=== PATIENT | female | born 1965 | race Caucasian/White ===

== ENCOUNTER → 2018-01-25 08:45 | Outpatient (CLI) | payer MEDICARE, MEDICAID, SELFPAY | PROVIDERS: PCP Nurse Practitioner Family; Visit Provider Nurse Practitioner Adult Health | DX: G43.009 Migraine without aura, not intractable, without status migrainosus (principal); I67.1 Cerebral aneurysm, nonruptured; F17.210 Nicotine dependence, cigarettes, uncomplicated | CPT/HCPCS: 99213 ==

== ENCOUNTER 2018-03-20 00:19 | Outpatient (CLI) | payer MEDICARE, MEDICAID, SELFPAY ==
--- NOTE | 2018-03-20 11:33 | DI.MAMMO_ITS ---
SYMPTOMS/DIAGNOSIS: SCREENING, Z12.31, PREVENTATIVE CARE, Z00.00 MAMMOGRAM: Mammograms were interpreted according to the usual protocol including computer analysis with CAD system, tomosynthesis and C view imaging. Comparison with prior examinations. There are scattered well circumscribed nodules in both breasts. No suspicious masses or microcalcifications are seen. Breast density B. The skin and axilla are unremarkable. IMPRESSION: No evidence for malignancy. Yearly mammography is recommended. Category 2. MQSA ASSESSMENT OF FINDINGS: Negative with benign findings. Category 2. Patient will receive a letter notifying them of these results. BI-RADS category B. There are scattered areas of fibroglandular density.
== END 2018-03-20 00:39 ==
PROVIDERS: PCP Nurse Practitioner Family; Visit Provider Nurse Practitioner Family
DX: Z12.31 Encounter for screening mammogram for malignant neoplasm of breast (principal)
CPT/HCPCS: 77063; 77067

== ENCOUNTER 2018-05-09 08:00 | Outpatient (CLI) | payer MEDICARE, MEDICAID, SELFPAY ==
--- NOTE | 2018-05-09 06:00 | DI.RAD_ITS ---
SYMPTOM/DIAGNOSIS: LUMBAR SPONDYLOSIS PAIN CLINIC: Fluoroscopy Time: 116.6 sec Fluoroscopy was utilized by Dr. Gregory during the performance of a lumbar radiofrequency ablation. Please refer to the procedure report for complete details.
[2018-05-09 08:09] VITALS: BP 115/82; PULSE 71; RESP 18; TEMP 36.7; O2SAT 98
[2018-05-09] MEDS: Midazolam 2 MG/2 ML VIAL IVP (08:38)
[2018-05-09] MEDS: fentaNYL 100 MCG/2 ML VIAL IVP (08:38)
[2018-05-09] MEDS: Lactated Ringers 1,000 ML 80 ML IV (08:39)
[2018-05-09 09:16] VITALS: BP 123/67; PULSE 70; RESP 19; O2SAT 93
[2018-05-09] MEDS: Lidocaine 1% Pres-Free 5 ML VIAL IJ (09:19)
--- NOTE | 2018-05-09 09:25 | PDOC.PAIN ---
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 LEXUS has had long standing back pain thought to be facet joint generated and which has been refractory to other therapies. Local anesthetic medial branch blocks or intra-articular facet joint injections resulted in LEXUS reporting reduction of the usual axial component of pain for at least the duration of the local anesthetic effect. COMMENTS: Patient had previous radiofrequency ablation twice with good results for approximately 7 months Patient was interviewed and the medical record reviewed. There were no medical, pharmacologic, radiographic or other structural contraindications to attempting fluoroscopically guided radiofrequency treatment. Risks and expected side effects as well as potential benefit of the procedure were reviewed and voiced concerns addressed. The printed consent form was signed and witnessed. Standard time-out procedure was performed. Patient was placed in the prone position on the fluoroscopy table and automated blood pressure cuff and pulse oximeter applied. The skin entry points for approaching the anatomic target points of the segmental medial branches of { /bilateral: L3, 4, 5} were identified with fluoroscopy and marked. Following thorough Chlorhexadine preparation of the skin and draping and 1% lidocaine infiltration of the skin entry points and subcutaneous tissues, a single 17 guage straight 15 cm 4 mm active tip radiofrequency cannula was placed under fluoroscopic guidance along or across the anatomic course of each respective segmental medial branch. Each placement was stimulated at 50Hz and les then 0.5V for medial branch sensory localization and the at 2Hz and up to 3 times the sensory voltage without any evidence of distal myotomal stimulation. 1cc of 1% ;idocaine was injected at each site. At each placement a continuous mode radiofrequency treatment was done at 60 degrees C for 150secs. This radiofrequency treatment should result in the denervation of the { /bilateral L4-5, L5-S1 FACET JOINTS}.~ A total of {4} facets were expected to be denervated from today's treatment. Vital signs were stable throughout the procedure and were as recorded in the docflowsheet by the nursing staff. If given, dosages of intravenous drugs for anxiolysis and analgesia were documented in the Medication Administration Record (MAR). Follow up plans and appointments were discussed. Post procedure instruction was given as documented in the nursing documentation and having met discharge criteria, LEXUS was discharged from the [facility]. COMMENTS: Versed 1 mg and fentanyl 50 mcg given. Patient will follow-up as needed. CC: Lynne Ramírez
--- NOTE | 2018-05-09 09:28 | PDOC.PAIN_ITS ---
Pain Clinic Procedure Note Current Active Problems Problem Status Onset Spondylosis of lumbar region without myelopathy or radiculopathy Chronic COOLED LUMBAR/SACRAL MEDIAL BRANCH RADIOFREQUENCY LEXUS COOPRE has been referred to the [facility] for radiofrequency treatment of chronic axial back pain. LEXUS has had long standing back pain thought to be facet joint generated and which has been refractory to other therapies. Local anesthetic medial branch blocks or intra- articular facet joint injections resulted in LEXUS reporting reduction of the usual axial component of pain for at least the duration of the local anesthetic effect. COMMENTS: Patient had previous radiofrequency ablation twice with good results for approximately 7 months Patient was interviewed and the medical record reviewed. There were no medical , pharmacologic, radiographic or other structural contraindications to attempting fluoroscopically guided radiofrequency treatment. Risks and expected side effects as well as potential benefit of the procedure were reviewed and voiced concerns addressed. The printed consent form was signed and witnessed. Standard time-out procedure was performed. Patient was placed in the prone position on the fluoroscopy table and automated blood pressure cuff and pulse oximeter applied. The skin entry points for approaching the anatomic target points of the segmental medial branches of { /bilateral: L3, 4, 5} were identified with fluoroscopy and marked. Following thorough Chlorhexadine preparation of the skin and draping and 1% lidocaine infiltration of the skin entry points and subcutaneous tissues, a single 17 guage straight 15 cm 4 mm active tip radiofrequency cannula was placed under fluoroscopic guidance along or across the anatomic course of each respective segmental medial branch. Each placement was stimulated at 50Hz and les then 0.5V for medial branch sensory localization and the at 2Hz and up to 3 times the sensory voltage without any evidence of distal myotomal stimulation. 1cc of 1% ;idocaine was injected at each site. At each placement a continuous mode radiofrequency treatment was done at 60 degrees C for 150secs. This radiofrequency treatment should result in the denervation of the { / bilateral L4-5, L5-S1 FACET JOINTS}.~ A total of {4} facets were expected to be denervated from today's treatment. Vital signs were stable throughout the procedure and were as recorded in the docflowsheet by the nursing staff. If given, dosages of intravenous drugs for anxiolysis and analgesia were documented in the Medication Administration Record (MAR). Follow up plans and appointments were discussed. Post procedure instruction was given as documented in the nursing documentation and having met discharge criteria, LEXUS was discharged from the [facility]. COMMENTS: Versed 1 mg and fentanyl 50 mcg given. Patient will follow-up as needed. CC: Lynne Ramírez
== END 2018-05-09 08:20 ==
PROVIDERS: PCP Nurse Practitioner Family; Visit Provider Anesthesiology Pain Medicine
DX: M47.816 Spondylosis without myelopathy or radiculopathy, lumbar region (principal); G89.29 Other chronic pain
CPT/HCPCS: 64636; 64635; 72100; J2250; J3010

== ENCOUNTER → 2018-08-02 09:18 | Outpatient (BNVA) | payer MEDICARE, MEDICAID, SELFPAY | PROVIDERS: PCP Nurse Practitioner Family; Visit Provider Nurse Practitioner Adult Health | DX: G43.009 Migraine without aura, not intractable, without status migrainosus (principal); G44.40 Drug-induced headache, not elsewhere classified, not intractable; I67.1 Cerebral aneurysm, nonruptured | CPT/HCPCS: 99213 ==

== ENCOUNTER → 2018-09-06 09:47 | Outpatient (BNVA) | payer MEDICARE, MEDICAID, SELFPAY | PROVIDERS: PCP Nurse Practitioner Family; Visit Provider Nurse Practitioner Adult Health | DX: G43.009 Migraine without aura, not intractable, without status migrainosus (principal); R93.0 Abnormal findings on diagnostic imaging of skull and head, not elsewhere classified | CPT/HCPCS: 99212; 99213 ==

== ENCOUNTER 2018-12-01 10:08 | Outpatient (REF) | payer MEDICARE, MEDICAID, SELFPAY ==
[2018-12-04 13:54] LABS: Chlamydia Result Negative; GC Result Negative; Specimen Description URINE
== END 2018-12-01 10:28 ==
LOC: NCHCN 10:08
PROVIDERS: PCP Nurse Practitioner Family; Visit Provider Nurse Practitioner Family
DX: E03.9 Hypothyroidism, unspecified (principal); R53.83 Other fatigue
CPT/HCPCS: 87491; 87591

== ENCOUNTER 2018-12-21 08:01 | Outpatient (REF) | payer MEDICARE, MEDICAID, SELFPAY ==
[2018-12-21 13:03] LABS: HCT 42.3 % (36.0-46.0); HGB 14.8 g/dL (12.0-15.5); Mean Corpuscular Hemoglobin 33.6 pg (27.0-33.0); Mean Corpuscular Volume 96.1 fL (80-95); Platelet Count 183 x1000/uL (130-400); RBC Distribution Width 13.6 % (11.7-14.6); White Blood Cell Count 6.64 k/cumm (4.4-10.8)
[2018-12-21 22:05] LABS: ALT 26 U/L (12-78); AST 15 U/L (15-37); Albumin 3.5 g/dL (3.4-5.0); Alkaline Phosphatase 88 U/L (46-116); Anion Gap 10.4 mmol/L (3-11); BUN 12 mg/dL (7-18); Bilirubin, Total 0.2 mg/dL (0.2-1.0); CO2 27.6 mmol/L (21.0-32.0); CREATININE 0.91 mg/dL (0.55-1.02); Calcium 8.9 mg/dL (8.5-10.1); Calculated LDL 107 mg/dL; Chloride 104 mmol/L (98-107); Cholesterol 195 mg/dL (50-200); Glucose 97 mg/dL (70-100); HDL Cholesterol 43 mg/dL (40-60); Potassium 4.2 mmol/L (3.5-5.1); Sodium 142 mmol/L (136-145); TSH (W/Ref FT4) 2.81 uIU/mL (0.358-3.74); Total Protein 6.7 g/dL (6.4-8.2); Triglyceride 226 mg/dL (30-150); Vitamin B12 404 pg/mL (193-986)
[2018-12-21 22:08] LABS: Vitamin D 25 Total 38.7 ng/ml (30-100)
[2018-12-22 10:21] LABS: HIV-1/2 Ag & Ab Screen Negative (NEGAT)
[2018-12-22 16:36] LABS: Thyroglobulin Antibody <1.8 IU/mL (<4.0); Thyroglobulin Tumor Marker <0.1 ng/mL
== END 2018-12-21 08:21 ==
LOC: NCHCN 08:01
PROVIDERS: PCP Nurse Practitioner Family; Visit Provider Nurse Practitioner Family
DX: E03.9 Hypothyroidism, unspecified (principal); R53.83 Other fatigue; M79.10 Myalgia, unspecified site; R39.15 Urgency of urination; F32.9 Major depressive disorder, single episode, unspecified; F41.1 Generalized anxiety disorder
CPT/HCPCS: 80053; 80061; 82306; 83721; 85027; 87389; 82607; 84432; 84443; 86800

== ENCOUNTER 2019-01-25 00:29 | Outpatient (CLI) | payer MEDICARE, MEDICAID, SELFPAY ==
--- NOTE | 2019-01-25 09:35 | DI.US_ITS ---
SYMPTOM/DIAGNOSIS: R300, STRANGURIA RENAL ULTRASOUND: The right kidney measures 11.4 x 4.4 x 5.3 cm. There is normal cortical thickness and no cyst or mass is identified. The left kidney measures 11.7 x 7.2 x 5.5 cm There is normal cortical thickness. The pre-void bladder contains 446 cc The ureteral jets are not identified. The post void bladder contains 5 cc. SUMMARY: Normal examination.
== END 2019-01-25 00:49 ==
PROVIDERS: PCP Nurse Practitioner Family; Visit Provider Urology
DX: R30.0 Dysuria (principal)
CPT/HCPCS: 76770

== ENCOUNTER 2019-02-15 09:12 | Outpatient (CLI) | payer MEDICARE, MEDICAID, SELFPAY ==
--- NOTE | 2019-02-15 06:00 | DI.RAD_ITS ---
SYMPTOM/DIAGNOSIS: LUMBAR SPONDYLOSIS PAIN CLINIC: Fluoroscopy Time: 112.4 Fluoroscopy was utilized by Dr. Banerjee during the performance of a lumbar radiofrequency ablation. Please refer to the procedure report for complete details.
[2019-02-15 09:22] VITALS: BP 118/76; PULSE 78; RESP 20; TEMP 36.6; O2SAT 96
[2019-02-15] MEDS: Lactated Ringers 1,000 ML 80 ML IV (09:55)
[2019-02-15] MEDS: fentaNYL 100 MCG/2 ML VIAL IVP (09:56)
[2019-02-15] MEDS: Midazolam 2 MG/2 ML VIAL IVP (09:56)
[2019-02-15 10:48] VITALS: BP 137/58; PULSE 69; RESP 27; O2SAT 94
[2019-02-15] MEDS: Bupivacaine 0.5% Pres-Free 10 ML VIAL IJ (11:01)
[2019-02-15] MEDS: methylPREDNISolone ACETATE 40 MG/ML VIAL IM (11:02)
[2019-02-15] MEDS: Lidocaine 1% Pres-Free 5 ML VIAL 20 ML IJ (11:05)
--- NOTE | 2019-02-15 12:26 | PDOC.PAIN_ITS ---
Pain Clinic Procedure Note Current Active Problems Problem Status Onset Spondylosis of lumbar region without myelopathy or radiculopathy 09/07/16 LUMBAR/SACRAL MEDIAL BRANCH RADIOFREQUENCY LEXUS COOPER has been referred to the [facility] for radiofrequency treatment of chronic axial back pain. LEXUS has had long standing back pain thought to be facet joint generated and which has been refractory to other therapies. Local anesthetic medial branch blocks or intra- articular facet joint injections resulted in LEXUS reporting reduction of the usual axial component of pain for at least the duration of the local anesthetic effect. COMMENTS: She had >6 months of relief with her last RFA. I did decided to add the bilateral S1 lateral branches to get better denervation of the L5-S1 facet joints without any added cost. Patient was interviewed and the medical record reviewed. There were no medical, pharmacologic, radiographic or other structural contraindications to attempting fluoroscopically guided radiofrequency treatment. Risks and expected side effects as well as potential benefit of the procedure were reviewed and voiced concerns addressed. The printed consent form was signed and witnessed. Standard time-out procedure was performed. Patient was placed in the prone position on the fluoroscopy table and automated blood pressure cuff and pulse oximeter applied. The skin entry points for approaching the anatomic target points of the segmental medial branches of bilateral L3-L5DR and the bilateral S1 lateral branches were identified with fluoroscopy and marked. Following thorough Chlorhexadine preparation of the skin and draping and 1% lidocaine infiltration of the skin entry points and subcutaneous tissues, a single 18 guage curved 10 cm 10mm active tip radiofrequency cannula was placed under fluoroscopic guidance along or across the anatomic course of each respective segmental medial branch. Each placement was stimulated at 50Hz and les then 0.5V for medial branch sensory localization and the at 2Hz and up to 3 times the sensory voltage without any evidence of distal myotomal stimulation. 1cc of 1% ;idocaine was injected at each site. At each placement a continuous mode radiofrequency treatment was done at 90 degrees C for 90secs and then rotated 180degrees and then repeated. This radiofrequency treatment should result in the denervation of the bilateral L4-L5 and L5-S1 FACET JOINTS. A total of 4 facets were expected to be denervated from today's treatment. Vital signs were stable throughout the procedure and were as recorded in the docflowsheet by the nursing staff. If given, dosages of intravenous drugs for anxiolysis and analgesia were documented in the Medication Administration Record (MAR). Follow up plans and appointments were discussed. Post procedure instruction was given as documented in the nursing documentation and having met discharge criteria, LEXUS was discharged from the [facility]. COMMENTS: If this procedure gives her at least 6 months of relief, she can repeat this procedure without repeating the LMBBs. CC: Lynne Ramírez
== END 2019-02-15 09:32 ==
PROVIDERS: PCP Nurse Practitioner Family; Visit Provider Preventive Medicine Occupational Medicine
DX: M47.816 Spondylosis without myelopathy or radiculopathy, lumbar region (principal)
CPT/HCPCS: 64636 ×2; 64635 ×2; 72100; J1030; J2250; J3010

== ENCOUNTER 2019-03-07 00:43 | Outpatient (CLI) | payer MEDICARE, MEDICAID, SELFPAY ==
--- NOTE | 2019-03-07 08:00 | DI.US_ITS ---
SYMPTOM/DIAGNOSIS: LIVER LESION, K76.9 ABDOMEN ULTRASOUND: Comparison is made with MRI of the lumbar spine from [facility] dated 01/18/19 which showed a liver lesion inferiorly. This lesion is present on a previous CT from 2007. The liver shows normal echogenicity. The right lobe of the liver is somewhat elongated measuring 19 cm. The patient is status post cholecystectomy. The cyst seen on MRI was not visualized on this exam. The exam is somewhat limited due to patient body habitus. The spleen is normal in size. The kidneys and aorta are unremarkable. IMPRESSION: Lesion seen on MRI was present on a previous CT from 2007 and likely represents a cyst. It was not visualized on the current ultrasound.
== END 2019-03-07 01:03 ==
PROVIDERS: PCP Nurse Practitioner Family; Visit Provider Nurse Practitioner Family
DX: K76.89 Other specified diseases of liver (principal); Z90.49 Acquired absence of other specified parts of digestive tract
CPT/HCPCS: 76700

== ENCOUNTER 2019-03-08 00:58 | Outpatient (CLI) | payer MEDICARE, MEDICAID, SELFPAY ==
--- NOTE | 2019-03-08 10:30 | DI.MAMMO_ITS ---
SYMPTOMS/DIAGNOSIS: SCREENING, Z12.39 MAMMOGRAMS: Mammograms were interpreted according to the usual protocol including computer analysis with CAD system, tomosynthesis and C view imaging. The breasts are of moderate density with fairly symmetrical distribution of fibroglandular tissue. There are multiple areas of nodularity and there are skin nodules noted as well. No suspicious mass or clumped microcalcification seen. No change in appearance in comparison with previous examinations including February 2018. CONCLUSION: No specific evidence of malignancy at this time. Routine screening examinations are suggested at yearly intervals in this age group according to the ACS/ACR guidelines. Category 1, breast density category B. MQSA ASSESSMENT OF FINDINGS: Negative. Category 1. Patient will receive a letter notifying them of these results. BI-RADS category B. There are scattered areas of fibroglandular density.
== END 2019-03-08 01:18 ==
PROVIDERS: PCP Nurse Practitioner Family; Visit Provider Nurse Practitioner Family
DX: Z12.31 Encounter for screening mammogram for malignant neoplasm of breast (principal)
CPT/HCPCS: 77063; 77067

== ENCOUNTER 2019-05-11 18:36 | Emergency (ER) | payer MEDICARE, MEDICAID, SELFPAY ==
[2019-05-11 18:39] VITALS: BP 134/96; PULSE 89; RESP 18; TEMP 36.8; O2SAT 96
--- NOTE | 2019-05-11 19:12 | W.ED.GENAD ---
Discharge Plan Disposition Patient Disposition: HOME Discharge Details Chief Complaint: Abd Prob Clinical Impression: Muscle strain, Acute right flank pain Primary Care Provider: Lynne Ramírez ED Provider: Edgar Gutierrez Home Meds and New Rx's Prescriptions: Continued magnesium oxide 500 mg capsule 500 mg PO DAILY RF: 0 hydroxyzine HCl 25 mg tablet 25 mg PO QID PRN (Reason: headaches) Qty: 30 RF: 1 omeprazole 20 mg capsule,delayed release(DR/EC) 20 mg PO DAILY RF: 0 alprazolam 1 MG tablet 1 mg PO PRN PRNRF: 0 clomipramine 50 MG capsule 200 mg PO DAILY RF: 0 alprazolam 3 MG tablet extended release 24 hr 3 mg PO BID RF: 0 (DME) Ultra-Light Rollator 1 EACH misc Miscellaneous DAILY Qty: 1 RF: 0 Shower chair 1 unit Miscellaneous DAILY Qty: 1 RF: 0 cholecalciferol (vitamin D3) 1,000 UNIT tablet 2,000 unit PO DAILY Qty: 180 RF: 3 vitamin B complex 1 EACH capsule 1 ea PO weekly RF: 0 levothyroxine 200 MCG tablet 200 mcg PO DAILY Qty: 90 RF: 3 CBD oil 13 drp PO DAILY RF: 0 apple cider vinegar 300 mg Tablet 300 mg PO DAILY RF: 0 turmeric 400 mg Capsule 400 mg PO DAILY RF: 0 acetaminophen [Acetaminophen Extra Strength] 500 mg tablet 1,500 mg PO BID RF: 0 Discontinued methylsulfonylmethane [MSM] 1,000 mg tablet 3,000 mg PO BID RF: 0 No Action lidocaine [Lidoderm] 5 % adhesive patch,medicated 1 patch TP DAILY Qty: 15 RF: 0 methocarbamol 750 mg tablet 750 mg PO QID PRN (Reason: muscle spasm) Qty: 14 RF: 0 Discharge Instructions Instructions: Muscle Strain (ED) Additional Instructions: Please take acetaminophen (tylenol) - 650mg every 6 hours by mouth as needed for pain. Use lidocaine patches -these are available [id number]. Please use as directed by label. Please contact your primary care physician to arrange follow-up. Return to the ER for any worsening or new concerning symptoms. Referrals: Lynne Ramírez [Primary Care Provider] - Discharge Data Discharge Date/Time-TO BE ENTERED AT DEPARTURE: 05/11/19 20:30 Medical Decision Making 54-year-old female here with right flank pain for the past few days that started today after after physical therapy exercises. Patient is saturating well with no respiratory distress. Lungs are clear to auscultation and there is no pleuritic component to her pain. Patient has had no direct trauma to her chest. Patient does note cough recently trying to stop smoking. Given small bruise and focal tenderness I suspect that she has sustained a contusion, possibly doing physical therapy or else a pulled muscle. Consider less likely rib fracture. Plan to give Tylenol and lidocaine patch and will reassess. HPI General Mode of arrival: ambulatory. Date/Time Provider Initiated Documentation: 05/11/19 18:46. Limitations to Documentation: no limitations. Information obtained by: patient. HPI Narrative: 54-year-old female with multiple medical problems presents with chief complaint of right flank pain. Patient notes that she had her poor physical therapy on Tuesday. The following day she felt stiff and later that today developed pain in her right flank. Pain has persisted. Pain is moderate. Pain is worse with certain movements including twisting and when lying back. She initially was concerned that she pulled a muscle but is worried that symptoms persist. She has no chest pain or pleuritic component to her pain. She has no dysuria or hematuria. No rash. No abdominal pain no nausea vomiting. Related Data Home Medications Medication Instructions Recorded Confirmed alprazolam 1 mg PO PRN PRN 10/18/12 05/13/19 alprazolam 3 mg PO BID 10/18/12 05/13/19 clomipramine 200 mg PO DAILY tab-cap 10/18/12 05/13/19 Ultra-Light Rollator #1 06/03/17 05/13/19 cholecalciferol (vitamin D3) 2,000 unit PO DAILY #180 tab-cap 11/02/17 05/13/19 vitamin B complex 1 ea PO weekly cap 11/09/17 05/13/19 levothyroxine 200 mcg PO DAILY #90 tab 11/14/17 05/13/19 Cbd Oil 13 drp PO DAILY 11/18/17 05/13/19 acetaminophen 500 mg tablet 1,500 mg PO BID tab 08/02/18 05/13/19 hydroxyzine HCl 25 mg tablet 25 mg PO QID PRN #30 tab 08/02/18 05/13/19 magnesium oxide 500 mg capsule 500 mg PO DAILY cap 08/02/18 05/13/19 omeprazole 20 mg capsule,delayed 20 mg PO DAILY 01/02/19 05/13/19 release apple cider vinegar 300 mg PO DAILY 05/11/19 05/13/19 turmeric 400 mg PO DAILY 05/11/19 05/13/19 lidocaine [Lidoderm] 1 patch TP DAILY #15 each 05/13/19 methocarbamol 750 mg PO QID PRN #14 tab 05/13/19 Previous Rx's Medication Instructions Recorded cholecalciferol (vitamin D3) 2,000 unit PO DAILY #180 tab-cap 11/02/17 levothyroxine 200 mcg PO DAILY #90 tab 11/14/17 hydroxyzine HCl 25 mg tablet 25 mg PO QID PRN #30 tab 08/02/18 lidocaine [Lidoderm] 1 patch TP DAILY #15 each 05/13/19 methocarbamol 750 mg PO QID PRN #14 tab 05/13/19 Allergies Allergy/AdvReac Type Severity Reaction Status Date / Time NSAIDS (Non-Steroidal AdvReac Severe Other (See Unverified 05/13/19 11:10 Anti-Inflamma Comment) gabapentin AdvReac Mild Sleepiness Unverified 05/13/19 11:10 General Stated Complaint: Abd Prob DANA: 3 Review of Systems All systems reviewed & are unremarkable except as noted in HPI and below Constitutional Constitutional: Denies fever(s) Musculoskeletal Musculoskeletal: Reports as per HPI [facility] Medical History Depressive disorder Follicular thyroid cancer (~1991) Generalized anxiety disorder Hypothyroidism Morbid obesity Myopathy MONSE (obstructive sleep apnea) Panic disorder Surgical History Abdominal hysterectomy (~1991) Ovaries remain Cholecystectomy (01/10/04) Hernia repair, ventral, 2013, [place] Thyroid (06/26/92) Complete thyroidectomy for follicular thyroid CA Family History Father , COPD at age 72. Substance abuse Alcoholic Diabetes COPD (chronic obstructive pulmonary disease) Smoker Mother Heart disease Myocardial infarction x2 Sister No problems noted. Sister No problems noted. Sister No problems noted. Sister No problems noted. Brother No problems noted. Social History (Reviewed 05/13/19 @ 12:15 by MISSY Wren Smoking/Tobacco Use Status: Current-Occasional Tobacco Type: cigarettes Alcohol Intake: never Drug use: Occasionally Substance use type: marijuana Do you feel safe at home: Yes Do you feel safe in your relationship?: Yes Exam Narrative Exam Narrative: Patient is focally tender at area of quarter sized bruise right flank over lower rib with no palpable hematoma or crepitus Const General: cooperative and no acute distress HENMT Mouth: moist mucous membranes Eyes Conjunctivae: normal conjunctivae Sclera: normal sclerae Resp Auscultation: clear to auscultation bilaterally, no rales, no rhonchi and no wheezes Cardio Jugular venous pressure: no JVD Rate: regular rate and not tachycardic Rhythm: regular rhythm GI Palpation: soft, not firm, no guarding, no masses, not rigid and nontender Back/Spine/Pelvis Back: no CVA tenderness Skin General skin exam: no rashes or lesions noted Other: Quarter size bruise right flank Course Vital Signs Vital signs: Vital Signs Temperature 36.8 C 05/11/19 18:39 Pulse 89 05/11/19 18:39 Respiratory Rate 18 05/11/19 18:39 Blood Pressure 134/96 H 05/11/19 18:39 Pulse Oximetry 96 05/11/19 18:39 Temperature 36.8 C 05/11/19 18:39 Temperature Source Skin 05/11/19 18:39 Pulse 89 05/11/19 18:39 Respiratory Rate 18 05/11/19 18:39 Respiratory Effort 05/11/19 18:46 Blood Pressure 134/96 H 05/11/19 18:39 Blood Pressure Position Sitting 05/11/19 18:39 Pulse Oximetry 96 05/11/19 18:39 Oxygen Delivery Method Room Air 05/11/19 18:39 Oxygen Flow Rate 0 05/11/19 18:39 Pain Level 9 05/11/19 18:39
[2019-05-11] MEDS: Acetaminophen 325 MG TAB 650 MG PO (19:23)
[2019-05-11] MEDS: Lidocaine 5% Patch 1 PATCH TP (19:24)
[2019-05-11 19:57] LABS: Bilirubin Negative (Negative); Blood Negative (Negative); Clarity Clear (Clear); Glucose Negative (Negative); Ketones Negative (Negative); Leukocyte Esterase Negative (Negative); Nitrite Negative (Negative); Urobilinogen 0.2 EU/dL (Up TO 0.2)
[2019-05-11 20:21] VITALS: BP 127/86; PULSE 73; RESP 16; TEMP 36.5; O2SAT 96
== END 2019-05-11 20:30 | disposition home or self-care (01) ==
PROVIDERS: Emergency Provider Student in an Organized Health Care Education/Training Program; PCP Nurse Practitioner Family
DX: S39.011A Strain of muscle, fascia and tendon of abdomen, initial encounter (principal); M54.5 Low back pain; S30.1XXA Contusion of abdominal wall, initial encounter; X58.XXXA Exposure to other specified factors, initial encounter
CPT/HCPCS: 99282; 81003

== ENCOUNTER 2019-05-13 11:01 | Emergency (ER) | payer MEDICARE, MEDICAID, SELFPAY ==
[2019-05-13 11:07] VITALS: BP 135/87; PULSE 78; RESP 20; TEMP 36.7; O2SAT 95
--- NOTE | 2019-05-13 11:43 | ED.GENADUL_ITS ---
Discharge Plan Disposition Patient Disposition: HOME Condition: Improving Discharge Details Chief Complaint: Nk/Back Pain Clinical Impression: Right-sided chest wall pain Primary Care Provider: Lynne Ramírez ED Provider: Fide Umaña Home Meds and New Rx's Prescriptions: New lidocaine [Lidoderm] 5 % adhesive patch,medicated 1 patch TP DAILY Qty: 15 RF: 0 methocarbamol 750 mg tablet 750 mg PO QID PRN (Reason: muscle spasm) Qty: 14 RF: 0 Continued magnesium oxide 500 mg capsule 500 mg PO DAILY RF: 0 hydroxyzine HCl 25 mg tablet 25 mg PO QID PRN (Reason: headaches) Qty: 30 RF: 1 omeprazole 20 mg capsule,delayed release(DR/EC) 20 mg PO DAILY RF: 0 alprazolam 1 MG tablet 1 mg PO PRN PRNRF: 0 clomipramine 50 MG capsule 200 mg PO DAILY RF: 0 alprazolam 3 MG tablet extended release 24 hr 3 mg PO BID RF: 0 (DME) Ultra-Light Rollator 1 EACH misc Miscellaneous DAILY Qty: 1 RF: 0 Shower chair 1 unit Miscellaneous DAILY Qty: 1 RF: 0 cholecalciferol (vitamin D3) 1,000 UNIT tablet 2,000 unit PO DAILY Qty: 180 RF: 3 vitamin B complex 1 EACH capsule 1 ea PO weekly RF: 0 levothyroxine 200 MCG tablet 200 mcg PO DAILY Qty: 90 RF: 3 CBD oil 13 drp PO DAILY RF: 0 apple cider vinegar 300 mg Tablet 300 mg PO DAILY RF: 0 turmeric 400 mg Capsule 400 mg PO DAILY RF: 0 acetaminophen [Acetaminophen Extra Strength] 500 mg tablet 1,500 mg PO BID RF: 0 Discharge Instructions Instructions: Chest Wall Pain (ED) Additional Instructions: Take Tylenol every 4 hours as needed and directed for pain. Be sure not to take more than 3000 mg daily. You can also try taking ibuprofen sparingly for pain. Regular dosing of ibuprofen for you would be 600 mg every 6 hours but you may want to consider taking it only 1-2 times daily for the next few days due to your previous history of kidney injury. Apply the Lidoderm patches as needed and directed. Take the muscle relaxers as needed and directed. Follow-up with your primary care doctor within the next week for reevaluation. Return to the emergency department if you develop any worsening or new concerning symptoms. Discharge Data Discharge Date/Time-TO BE ENTERED AT DEPARTURE: 05/13/19 15:00 Discharge Physician: Fide Umaña Medical Decision Making 1125 -- 54-year-old female with a history of anxiety, depression, hypothyroid, morbid obesity, sleep apnea panic disorder here with right sided lower rib pain with radiation to her right anterior lower ribs and right upper quadrant for the past several days. She was seen here 2 days ago for the same complaint and diagnosed with likely musculoskeletal pain and advised to use [id number] Lidoderm patches. She states she was unable to afford these and has been using Biofreeze and Tylenol without relief. She was noted to have ecchymoses on her right lateral ribs at that time which w ere also present today but she denies any known injury. She states she is in physical pool therapy. She has been taking 3000 mg of Tylenol daily for the past 8 years for her arthritis pain. She states she cannot take NSAIDs due to previous history of kidney injury. Vitals within normal limits. Patient is tearful and crying during exam. She has tenderness palpation of her right lower lateral and anterior ribs with ecchymoses around this area and extending to the right torso. She has some right upper quadrant tenderness. Otherwise abdomen is soft and nondistended. Differential diagnosis includes musculoskeletal strain, rib fracture, acute abdominal abnormality, shingles, kidney stone. She had a urinalysis done 2 days ago which was negative. No other labs or imaging. Will place an IV, give a dose of morphine and Lidoderm patch and check screening labs, urinalysis as well as CT chest abdomen and pelvis. 1345 --labs reviewed and unremarkable. Normal white blood cell count, el ectrolytes. Patient states she feels loopy from the morphine but denies any significant relief of pain. Her allergy list notes an allergy to NSAIDs but she states it is not an allergy but she previously had a kidney injury due to this. Recent labs note that patient has normal creatinine and GFR. Will give a dose of Toradol and reassess. CT and UA pending. 1420 --CT negative. Urinalysis negative. Patient admits to relief of pain and feels good to go home. Suspect her pain is most likely musculoskeletal. She advised to alternate ice and heat, Tylenol and Motrin. She is advised to use Motrin sparingly due to her previous history of kidney injury. We will also send with methocarbamol and Lidoderm patches. Patient states she was unable to afford the Lidoderm patches and she has Medicare and Medicaid. She is advised to follow-up with her primary care doctor for evaluation and to return at anytime if worse. Medical Records Medical records reviewed: Yes I reviewed the patient's medical records. Imaging Data Radiologic Study: Radiologist's impression: CT Chest Without Contrast Exam date and time: 05/13/2019 1:06 PM Clinical history: 54 years old, female; Other: R side/ruq pain/o rib fracture/abdomen abnormality/kidney stone; Other: R side/ruq pain R/O rib fracture/abdomen abnormality/kidney stone TECHNIQUE: Imaging protocol: Computed tomography of the chest without contrast. Radiation optimization: All CT scans at this facility use at least one of these dose optimization techniques: automated exposure control; mA and/or kV adjustment per patient size (includes targeted exams where dose is matched to clinical indication); or iterative reconstruction. COMPARISON: CR ABD FLAT UPRIGHT PA CHEST 04/17/2017 11:23 AM FINDINGS: Lungs: Unremarkable. No consolidation. No masses. Pleural space: Unremarkable. No pneumothorax. No pleural effusion. Heart: Unremarkable. No cardiomegaly. No pericardial effusion. Aorta: Unremarkable. No aortic aneurysm. Lymph nodes: Unremarkable. No enlarged lymph nodes. Bones/joints: Unremarkable. No acute fracture. Soft tissues: Soft tissue nodular densities noted both breasts. IMPRESSION: No acute abnormality evident. Followup bilateral breast nodules. CT Abdomen And Pelvis Without Contrast Exam date and time: 05/13/2019 1:06 PM Clinical history: 54 years old, female; Other: R side/ruq pain/o rib fracture/abdomen abnormality/kidney stone; Other: R side/ruq pain R/O rib fracture/abdomen abnormality/kidney stone TECHNIQUE: Imaging protocol: Computed tomography of the abdomen and pelvis without contrast. Radiation optimization: All CT scans at this facility use at least one of these dose optimization techniques: automated exposure control; mA and/or kV adjustment per patient size (includes targeted exams where dose is matched to clinical indication); or iterative reconstruction. COMPARISON: CR ABD FLAT UPRIGHT PA CHEST 04/17/2017 11:23 AM FINDINGS: Liver: Normal. No mass. Gallbladder and bile ducts: Status post cholecystectomy. Pancreas: Normal. No ductal dilation. Spleen: Normal. No splenomegaly. Adrenals: Normal. No mass. Kidneys and ureters: Left renal cyst. Stomach and bowel: Unremarkable. No obstruction. No mucosal thickening. Appendix: No evidence of appendicitis. Intraperitoneal space: Unremarkable. No free air. No significant fluid collection. Vasculature: Mild atherosclerotic change present in the vasculature. Lymph nodes: Unremarkable. No enlarged lymph nodes. Bladder: Unremarkable as visualized. Reproductive: Status post hysterectomy. Bones/joints: Unremarkable. No acute fracture. Soft tissues: Moderate sinus, fat-containing periumbilical hernia. IMPRESSION: No acute abnormality seen to account for symptoms. Lab Data Lab results reviewed: Yes I reviewed the patient's lab results. Labs: Laboratory Tests Range/Units 05/13/19 05/13/19 05/13/19 12:30 12:30 14:00 WBC (4.4-10.8) k/cumm 5.91 RBC (4.00-5.20) m/cumm 4.55 Hgb (12.0-15.5) g/dL 14.4 Hct (36.0-46.0) % 42.7 MCV (80-95) fL 93.8 MCH (27.0-33.0) pg 31.6 MCHC (32.0-36.0) g/dL 33.7 RDW (11.7-14.6) % 13.4 Plt Count (130-400) x1000/uL 181 MPV (8.0-11.0) fL 10.0 Immature Gran % 0.2 Neutrophils % 50.4 Lymphocytes % 40.6 Monocytes % 6.6 Eosinophils % 1.7 Basophils % 0.5 Absolute Neutrophils (1.2-6.7) k/cumm 2.98 Absolute Lymphocytes (1.2-3.4) k/cumm 2.40 Absolute Monocytes (0.11-0.7) k/cumm 0.39 Absolute Eosinophils (0.0-0.7) k/cumm 0.10 Absolute Basophils (0.0-0.2) k/cumm 0.03 Sodium (136-145) mmol/L 141 Potassium (3.5-5.1) mmol/L 4.0 Chloride (98-107) mmol/L 105 Carbon Dioxide (21.0-32.0) mmol/L 28.4 Anion Gap (3-11) mmol/L 7.6 BUN (7-18) mg/dL 14 Creatinine (0.55-1.02) mg/dL 0.82 Estimated GFR/1.73 m2 (mL/min/1.73m2) >= 60.00 Glucose (70-100) mg/dL 101 H Calcium (8.5-10.1) mg/dL 8.8 Total Bilirubin (0.2-1.0) mg/dL 0.3 AST (15-37) U/L 29 ALT (14-59) U/L 50 Alkaline Phosphatase (46-116) U/L 86 Total Protein (6.4-8.2) g/dL 6.9 Albumin (3.4-5.0) g/dL 3.5 Lipase (73-393) U/L 80 Urine Color (Yellow) Yellow Urine Clarity (Clear) Clear Urine pH (5-8) 6.0 Ur Specific [place] (1.005-1.025) 1.015 Urine Protein (Negative) mg/dL Negative Urine Ketones (Negative) mg/dL Negative Urine Blood (Negative) Negative Urine Nitrite (Negative) Negative Urine Bilirubin (Negative) Negative Urine Urobilinogen (Up TO 0.2) EU/dL 0.2 Ur Leukocyte Esterase (Negative) Negative Urine Glucose (Negative) mg/dL Negative HPI General Mode of arrival: wheelchair . Date/Time Provider Initiated Documentation: 05/13/19 11:04 . Limitations to Documentation: no limitations . Information obtained by: patient . History of Present Illness 54 year old F presents to the emergency department with the chief complaint of R side pain, described as moderate, Quality is described as stabbing, aching and sharp, and is localized to the back and abdomen. Patient abdomen. Patient started experiencing this day(s) (6) and it has been constant. Rest improves symptom(s), Movement worsens symptoms . Patient notes loss of appetite; denies chest pain, cough, fever/chills, headaches, nausea/vomiting, shortness of breath, syncope and weakness. Patient did receive the following treatments prior to arrival, other (tylenol, biofreeze) Related Data Home Medications Medication Instructions Recorded Confirmed alprazolam 1 mg PO PRN PRN 10/18/12 05/13/19 alprazolam 3 mg PO BID 10/18/12 05/13/19 clomipramine 200 mg PO DAILY tab-cap 10/18/12 05/13/19 Ultra-Light Rollator #1 06/03/17 05/13/19 cholecalciferol (vitamin D3) 2,000 unit PO DAILY #180 tab-cap 11/02/17 05/13/19 vitamin B complex 1 ea PO weekly cap 11/09/17 05/13/19 levothyroxine 200 mcg PO DAILY #90 tab 11/14/17 05/13/19 Cbd Oil 13 drp PO DAILY 11/18/17 05/13/19 acetaminophen 500 mg tablet 1,500 mg PO BID tab 08/02/18 05/13/19 hydroxyzine HCl 25 mg tablet 25 mg PO QID PRN #30 tab 08/02/18 05/13/19 magnesium oxide 500 mg capsule 500 mg PO DAILY cap 08/02/18 05/13/19 omeprazole 20 mg capsule,delayed 20 mg PO DAILY 01/02/19 05/13/19 release apple cider vinegar 300 mg PO DAILY 05/11/19 05/13/19 turmeric 400 mg PO DAILY 05/11/19 05/13/19 lidocaine [Lidoderm] 1 patch TP DAILY #15 each 05/13/19 methocarbamol 750 mg PO QID PRN #14 tab 05/13/19 Previous Rx's Medication Instructions Recorded cholecalciferol (vitamin D3) 2,000 unit PO DAILY #180 tab-cap 11/02/17 levothyroxine 200 mcg PO DAILY #90 tab 11/14/17 hydroxyzine HCl 25 mg tablet 25 mg PO QID PRN #30 tab 08/02/18 lidocaine [Lidoderm] 1 patch TP DAILY #15 each 05/13/19 methocarbamol 750 mg PO QID PRN #14 tab 05/13/19 Allergies Allergy/AdvReac Type Severity Reaction Status Date / Time NSAIDS (Non-Steroidal AdvReac Severe Other (See Unverified 05/13/19 11:10 Anti-Inflamma Comment) gabapentin AdvReac Mild Sleepiness Unverified 05/13/19 11:10 General Stated Complaint: Nk/Back Pain DANA: 3 Review of Systems All systems reviewed & are unremarkable except as noted in HPI and below Constitutional Constitutional: Reports as per HPI, Denies chills and Denies fever(s) Eyes Eyes: Denies blurry vision ENT Ears, Nose, Mouth, and Throat: Denies dizziness, Denies sore throat and Denies throat swelling Cardiovascular Cardiovascular: Denies chest pain and Denies dyspnea Respiratory Respiratory: Denies cough and Denies dyspnea Gastrointestinal Gastrointestinal: Denies abdominal pain, Denies diarrhea and Denies vomiting Genitourinary Genitourinary: Denies hematuria and Denies dysuria Musculoskeletal Musculoskeletal: Reports back pain and Denies numbness Integumentary/Breasts Skin/Breast: Denies lesions and Denies rash Neurologic Neurologic: Denies dizziness, Denies focal weakness and Denies numbness Allergic/Immunologic Allergic/Immunologic: Denies throat swelling PFSH Medical History Depressive disorder Follicular thyroid cancer (~1991) Generalized anxiety disorder Hypothyroidism Morbid obesity Myopathy MONSE (obstructive sleep apnea) Panic disorder Surgical History Abdominal hysterectomy (~1991) Ovaries remain Cholecystectomy (01/10/04) Hernia repair, ventral, 2013, [place] Thyroid (06/26/92) Complete thyroidectomy for follicular thyroid CA Family History Father , COPD at age 72. Substance abuse Alcoholic Diabetes COPD (chronic obstructive pulmonary disease) Smoker Mother Heart disease Myocardial infarction x2 Sister No problems noted. Sister No problems noted. Sister No problems noted. Sister No problems noted. Brother No problems noted. Social History Smoking/Tobacco Use Status: Current-Occasional Tobacco Type: cigarettes Alcohol Intake: never Drug use: Occasionally Substance use type: marijuana Do you feel safe at home: Yes Do you feel safe in your relationship?: Yes Exam Const General: cooperative and uncomfortable HENMT Head: normal to inspection Face and sinus: normal facial exam Eyes General: appearance normal, both eyes and all related structures EOM: EOM intact bilaterally Neck Neck: normal visual inspection and No submandibular swelling Lymphatic: no lymphadenopathy noted Chest Chest: normal inspection of the chest and no tenderness Resp Effort & Inspection: normal respiratory effort and able to speak in complete sentences Auscultation: clear to auscultation bilaterally Cardio Rate: regular rate Rhythm: regular rhythm GI Inspection: normal to inspection, non-distended and obesity Palpation: soft, not firm, not rigid and tender in the RUQ Auscultation: normal bowel sounds Back/Spine/Pelvis Thoracic/Lumbar Spine: thoracic and lumbar spine normal to inspection Back/spine/pelvis image: 1. Tenderness to palpation of right lower lateral rib cage extending to right lower anterior rib cage and right upper quadrant. Scattered ecchymoses noted to right lateral ribs and right lateral torso which are also tender to palpation. No abscesses or rash noted. Skin General skin exam: no rashes or lesions noted Neuro General: alert, awake, oriented x3, moves all extremities, no meningeal signs and no focal motor deficits Cognition: normal cognition Speech: speech normal Motor: muscle tone normal throughout and strength 5/5 throughout Sensory Exam: no sensory deficits noted DTR's: Rt Ankle: 1+ and Lt Ankle: 1+ Plantar Reflexes: Equivocal: bilateral (negative babinski b/l ) Other: Unable to assess patellar reflexes due to patient inability to move from wheelchair to bed. Extrem General: normal to inspection, full ROM, normal capillary refill, no calf tenderness bilaterally and no edema Psych Appearance: grossly normal Mental Status: mental status grossly normal Speech and Movement: speech and movement normal Affect: normal affect Course Vital Signs Vital signs: Vital Signs Temperature 98.1 F 05/13/19 11:07 Pulse 78 05/13/19 11:07 Respiratory Rate 20 05/13/19 11:07 Blood Pressure 135/87 05/13/19 11:07 Pulse Oximetry 95 05/13/19 11:07 Temperature 98.1 F 05/13/19 11:07 Temperature Source Temporal Artery Scan 05/13/19 11:07 Pulse 78 05/13/19 11:07 Respiratory Rate 20 05/13/19 11:07 Respiratory Effort Non-Labored 05/13/19 11:11 Blood Pressure 135/87 05/13/19 11:07 Blood Pressure Position Sitting 05/13/19 11:07 Pulse Oximetry 95 05/13/19 11:07 Oxygen Delivery Method Room Air 05/13/19 11:07 Oxygen Flow Rate 0 05/13/19 11:07 Pain Level 9 05/13/19 11:11
--- NOTE | 2019-05-13 12:02 | DI.CT_ITS ---
EXAM: CT CHEST/ABD/PEL WO CLINICAL HISTORY: R side/RUQ pain,? Rib fx or kidney stone TECHNIQUE: Noncontrast. COMPARISON: mammo screening from 03/08/2019 FINDINGS: The exam is somewhat limited by the patient's body habitus. The heart size is normal. There are a f ew nodules seen in both breasts which were noted on recent mammogram and appeared unchanged over time . The lungs are clear throughout. No rib fracture, infiltrate or effusion is seen. Patient is statu s post cholecystectomy. A cyst is noted at the lower border of the right lobe of the liver. The spl een is normal size. A cyst is also seen at the lateral border of the left kidney. There is no evide nce of renal calculi or hydronephrosis. The bladder appears normal. The patient is status post hyst erectomy. The adrenals and pancreas are unremarkable. There is no bowel dilatation or inflammatory change. There is a fatty containing umbilical hernia not fully included on the exam. The appendix a ppears normal. Degenerative changes are seen in the spine, greatest in the upper lumbar region. The aorta is normal in diameter. IMPRESSION: Fatty containing umbilical hernia. No acute abnormality is seen in the chest, abdomen or pelvis.
[2019-05-13] MEDS: Lidocaine 5% Patch 1 PATCH TP (12:35)
[2019-05-13 12:45] LABS: Abs Immature Grans 0.01 k/cumm (0.0-0.09); Absolute Basophil Count 0.03 k/cumm (0.0-0.2); Absolute Monocyte Count 0.39 k/cumm (0.11-0.7); Absolute Neutrophil Count 2.98 k/cumm (1.2-6.7); Basophils % 0.5; Eosinophils % 1.7; HCT 42.7 % (36.0-46.0); HGB 14.4 g/dL (12.0-15.5); Immature Grans % 0.2; Lymphocytes % 40.6; Mean Corp. HGB Concentration 33.7 g/dL (32.0-36.0); Mean Corpuscular Hemoglobin 31.6 pg (27.0-33.0); Mean Corpuscular Volume 93.8 fL (80-95); Monocytes % 6.6; Neutrophils % 50.4; Platelet Count 181 x1000/uL (130-400); RBC 4.55 m/cumm (4.00-5.20); RBC Distribution Width 13.4 % (11.7-14.6); White Blood Cell Count 5.91 k/cumm (4.4-10.8)
[2019-05-13 12:55] LABS: ALT 50 U/L (14-59); AST 29 U/L (15-37); Albumin 3.5 g/dL (3.4-5.0); Alkaline Phosphatase 86 U/L (46-116); Anion Gap 7.6 mmol/L (3-11); BUN 14 mg/dL (7-18); Bilirubin, Total 0.3 mg/dL (0.2-1.0); CO2 28.4 mmol/L (21.0-32.0); CREATININE 0.82 mg/dL (0.55-1.02); Calcium 8.8 mg/dL (8.5-10.1); Chloride 105 mmol/L (98-107); Glucose 101 mg/dL (70-100); Lipase 80 U/L (73-393); Sodium 141 mmol/L (136-145); Total Protein 6.9 g/dL (6.4-8.2)
[2019-05-13] MEDS: Normal Saline Flush 10 ML SYR IVP (13:05)
[2019-05-13 13:21] VITALS: BP 133/68; PULSE 72; O2SAT 98
[2019-05-13] MEDS: Ketorolac 30 MG/ML VIAL (13:52)
--- NOTE | 2019-05-13 14:03 | DI.VRAD_ITS ---
PROCEDURE INFORMATION: Exam: CT Chest Without Contrast Exam date and time: 05/13/2019 1:06 PM Clinical history: 54 years old, female; Other: R side/ruq pain/o rib fracture/abdomen abnormality/kidney stone; Other: R side/ruq pain R/O rib fracture/abdomen abnormality/kidney stone TECHNIQUE: Imaging protocol: Computed tomography of the chest without contrast. Radiation optimization: All CT scans at this facility use at least one of these dose optimization techniques: automated exposure control; mA and/or kV adjustment per patient size (includes targeted exams where dose is matched to clinical indication); or iterative reconstruction. COMPARISON: CR ABD FLAT UPRIGHT PA CHEST 04/17/2017 11:23 AM FINDINGS: Lungs: Unremarkable. No consolidation. No masses. Pleural space: Unremarkable. No pneumothorax. No pleural effusion. Heart: Unremarkable. No cardiomegaly. No pericardial effusion. Aorta: Unremarkable. No aortic aneurysm. Lymph nodes: Unremarkable. No enlarged lymph nodes. Bones/joints: Unremarkable. No acute fracture. Soft tissues: Soft tissue nodular densities noted both breasts. IMPRESSION: No acute abnormality evident. Followup bilateral breast nodules. PROCEDURE INFORMATION: Exam: CT Abdomen And Pelvis Without Contrast Exam date and time: 05/13/2019 1:06 PM Clinical history: 54 years old, female; Other: R side/ruq pain/o rib fracture/abdomen abnormality/kidney stone; Other: R side/ruq pain R/O rib fracture/abdomen abnormality/kidney stone TECHNIQUE: Imaging protocol: Computed tomography of the abdomen and pelvis without contrast. Radiation optimization: All CT scans at this facility use at least one of these dose optimization techniques: automated exposure control; mA and/or kV adjustment per patient size (includes targeted exams where dose is matched to clinical indication); or iterative reconstruction. COMPARISON: CR ABD FLAT UPRIGHT PA CHEST 04/17/2017 11:23 AM FINDINGS: Liver: Normal. No mass. Gallbladder and bile ducts: Status post cholecystectomy. Pancreas: Normal. No ductal dilation. Spleen: Normal. No splenomegaly. Adrenals: Normal. No mass. Kidneys and ureters: Left renal cyst. Stomach and bowel: Unremarkable. No obstruction. No mucosal thickening. Appendix: No evidence of appendicitis. Intraperitoneal space: Unremarkable. No free air. No significant fluid collection. Vasculature: Mild atherosclerotic change present in the vasculature. Lymph nodes: Unremarkable. No enlarged lymph nodes. Bladder: Unremarkable as visualized. Reproductive: Status post hysterectomy. Bones/joints: Unremarkable. No acute fracture. Soft tissues: Moderate sinus, fat-containing periumbilical hernia. IMPRESSION: No acute abnormality seen to account for symptoms. COMMENT: Preliminary interpretation is based on receipt of [id number] image(s). A final report will be issued subsequently. Dictated and Authenticated by: Abby Funes MD. Ordering:JIA Elizalde MD
[2019-05-13 14:17] LABS: Bilirubin Negative (Negative); Blood Negative (Negative); Clarity Clear (Clear); Glucose Negative (Negative); Ketones Negative (Negative); Leukocyte Esterase Negative (Negative); Nitrite Negative (Negative); Specific Gravity 1.015 (1.005-1.025); Urobilinogen 0.2 EU/dL (Up TO 0.2)
[2019-05-13 15:49] VITALS: BP 135/87; PULSE 78; RESP 20; TEMP 36.7; O2SAT 98
== END 2019-05-13 15:00 | disposition home or self-care (01) ==
PROVIDERS: Emergency Provider Physician Assistant; PCP Nurse Practitioner Family
DX: R07.81 Pleurodynia (principal); R10.11 Right upper quadrant pain
CPT/HCPCS: 36415; 71250; 80053; 83690; 96374; 99285; 74176; 81003; 85025; 99284; J1885

== ENCOUNTER 2020-03-17 10:20 | Outpatient (REF) | payer MEDICARE, MEDICAID, SELFPAY ==
[2020-03-17 19:37] LABS: ALT 30 U/L (14-59); AST 19 U/L (15-37); Albumin 3.7 g/dL (3.4-5.0); Alkaline Phosphatase 74 U/L (46-116); Anion Gap 8.6 mmol/L (3-11); BUN 11 mg/dL (7-18); Bilirubin, Total 0.4 mg/dL (0.2-1.0); CO2 28.4 mmol/L (21.0-32.0); Calcium 8.7 mg/dL (8.5-10.1); Calculated LDL 108 mg/dL (<100); Chloride 104 mmol/L (98-107); Cholesterol 223 mg/dL (<200); Glucose 110 mg/dL (74-106); HDL Cholesterol 38 mg/dL (40-60); Potassium 4.3 mmol/L (3.5-5.1); Sodium 141 mmol/L (136-145); TSH (W/Ref FT4) 0.33 uIU/mL (0.36-3.74); Total Protein 6.7 g/dL (6.4-8.2); Triglyceride 389 mg/dL (<150)
[2020-03-17 20:17] LABS: FREE T4 1.36 ng/dL (0.76-1.46)
[2020-03-19 12:10] LABS: Thyroglobulin Antibody <15 U/mL (<=60)
== END 2020-03-17 10:40 ==
LOC: NCHCN 10:20
PROVIDERS: PCP Nurse Practitioner Family; Visit Provider Nurse Practitioner Family
DX: E03.9 Hypothyroidism, unspecified (principal); Z85.850 Personal history of malignant neoplasm of thyroid; K76.9 Liver disease, unspecified; E78.5 Hyperlipidemia, unspecified
CPT/HCPCS: 80053; 80061; 84439; 84443; 86800

== ENCOUNTER 2020-04-27 15:23 | Emergency (ER) | payer MEDICARE, MEDICAID, SELFPAY ==
[2020-04-27 15:31] VITALS: BP 155/91; PULSE 85; RESP 16; TEMP 36.6; O2SAT 96
[2020-04-27 15:53] LABS: Bilirubin Negative (Negative); Blood Trace-intact (Negative); Clarity Clear (Clear); Glucose Negative (Negative); Ketones Negative (Negative); Leukocyte Esterase Negative (Negative); Nitrite Negative (Negative); Urobilinogen 0.2 EU/dL (Up TO 0.2); pH 6.5 (5-8)
[2020-04-27 16:01] LABS: Bacteria Negative HPF (Negative); C & S Indicated? No; Casts Negative LPF (Negative); Crystals Negative HPF (Negative); Epithelial Cells Few HPF (Negative); Mucus Negative (Negative); RBC 0-2 HPF (0-2); WBC 0-2 HPF (0-5)
--- NOTE | 2020-04-27 16:16 | ED.GENADUL_ITS ---
Discharge Plan Disposition Patient Disposition: HOME Condition: Stable Discharge Details Clinical Impression: Lumbar back pain, Nausea Primary Care Provider: Lynne Ramírez ED Provider: Edgar Gutierrez Home Meds and New Rx's Prescriptions: New ondansetron 4 mg tablet,disintegrating 4 mg PO Q8H PRNQty: 7 RF: 0 Continued magnesium oxide 500 mg capsule 500 mg PO DAILY RF: 0 hydroxyzine HCl 25 mg tablet 25 mg PO QID PRN (Reason: headaches) Qty: 30 RF: 1 omeprazole 20 mg capsule,delayed release(DR/EC) 20 mg PO DAILY RF: 0 alprazolam 1 MG tablet 1 mg PO PRN PRNRF: 0 clomipramine 50 MG capsule 200 mg PO DAILY RF: 0 alprazolam 3 MG tablet extended release 24 hr 3 mg PO BID RF: 0 (DME) Ultra-Light Rollator 1 EACH misc Miscellaneous DAILY Qty: 1 RF: 0 Shower chair 1 unit Miscellaneous DAILY Qty: 1 RF: 0 cholecalciferol (vitamin D3) 1,000 UNIT tablet 2,000 unit PO DAILY Qty: 180 RF: 3 vitamin B complex 1 EACH capsule 1 ea PO weekly RF: 0 levothyroxine 200 MCG tablet 200 mcg PO DAILY Qty: 90 RF: 3 CBD oil 13 drp PO DAILY RF: 0 acetaminophen [Acetaminophen Extra Strength] 500 mg tablet 1,500 mg PO BID RF: 0 lidocaine [Lidoderm] 5 % adhesive patch,medicated 1 patch TP DAILY Qty: 15 RF: 0 methocarbamol 750 mg tablet 750 mg PO QID PRN (Reason: muscle spasm) Qty: 14 RF: 0 Discharge Instructions Instructions: Low Back Strain (ED), Acute Nausea and Vomiting (ED) Additional Instructions: Please use lidocaine patches for pain. These are [id number]. Dose according to label. Please take acetaminophen (tylenol) - 650mg every 6 hours by mouth as needed for pain. You may also take ibuprofen 600 mg by mouth every 8 hours as needed for pain over the next 1 week. Please contact your primary care physician to arrange follow-up. Call tomorrow. If pain persists, you may need further work-up with diagnostic imaging. Return to the ER for any worsening or new concerning symptoms. Referrals: Lynne Ramírez [Primary Care Provider] - Discharge Data Discharge Date/Time-TO BE ENTERED AT DEPARTURE: 04/27/20 17:58 Medical Decision Making 1750??55-year-old female with history of morbid obesity and spondylosis of the lumbar spine, here with lumbar spinal pain and focal tenderness over lumbar and left lumbar paraspinal muscles. Suspect disc herniation versus spasm. Patient took Tylenol earlier today. I will give Toradol 30 mg IM as well as lidocaine patch. Patient has had some nausea has resolved the pain. I will give Zofran 4 mg ODT. -- Patient reassessed and pain improved, requesting dishcharge. Usual and customary discharge instructions reviewed with patient. HPI General Mode of arrival: ambulatory . Date/Time Provider Initiated Documentation: 04/27/20 15:40 . Limitations to Documentation: no limitations . Information obtained by: patient . HPI Narrative: 55-year-old female with history of lumbar spondylosis, morbid obesity, presents with chief complaint of low back pain. Patient notes low back pain, localized to mid to low back on the left side that is been present for the past 2 days. Patient does not recall any specific trauma. No bowel or bladder dysfunction. No numbness or weakness. She does have some associated nausea secondary to the pain. Patient has chronic back pain and has not been able to have ablation therapy as result of Covid. Related Data Home Medications Medication Instructions Recorded Confirmed alprazolam 1 mg PO PRN PRN 10/18/12 04/27/20 alprazolam 3 mg PO BID 10/18/12 04/27/20 clomipramine 200 mg PO DAILY tab-cap 10/18/12 04/27/20 Ultra-Light Rollator #1 06/03/17 05/13/19 cholecalciferol (vitamin D3) 2,000 unit PO DAILY #180 tab-cap 11/02/17 04/27/20 vitamin B complex 1 ea PO weekly cap 11/09/17 04/27/20 levothyroxine 200 mcg PO DAILY #90 tab 11/14/17 04/27/20 Cbd Oil 13 drp PO DAILY 11/18/17 04/27/20 acetaminophen 500 mg tablet 1,500 mg PO BID tab 08/02/18 04/27/20 hydroxyzine HCl 25 mg tablet 25 mg PO QID PRN #30 tab 08/02/18 04/27/20 magnesium oxide 500 mg capsule 500 mg PO DAILY cap 08/02/18 04/27/20 omeprazole 20 mg capsule,delayed 20 mg PO DAILY 01/02/19 04/27/20 release lidocaine [Lidoderm] 1 patch TP DAILY #15 each 05/13/19 04/27/20 methocarbamol 750 mg PO QID PRN #14 tab 05/13/19 04/27/20 ondansetron 4 mg PO Q8H PRN #7 tab 04/27/20 Previous Rx's Medication Instructions Recorded cholecalciferol (vitamin D3) 2,000 unit PO DAILY #180 tab-cap 11/02/17 levothyroxine 200 mcg PO DAILY #90 tab 11/14/17 hydroxyzine HCl 25 mg tablet 25 mg PO QID PRN #30 tab 08/02/18 lidocaine [Lidoderm] 1 patch TP DAILY #15 each 05/13/19 methocarbamol 750 mg PO QID PRN #14 tab 05/13/19 ondansetron 4 mg PO Q8H PRN #7 tab 04/27/20 Allergies Allergy/AdvReac Type Severity Reaction Status Date / Time NSAIDS (Non-Steroidal AdvReac Severe Other (See Unverified 04/27/20 15:36 Anti-Inflamma Comment) gabapentin AdvReac Mild Sleepiness Unverified 04/27/20 15:36 General Stated Complaint: Nk/Back Pain DANA: 3 Review of Systems All systems reviewed & are unremarkable except as noted in HPI and below Constitutional Constitutional: Denies fever(s) Genitourinary Genitourinary: Denies hematuria, Denies difficulty voiding, Denies dysuria and Denies urinary hesitancy Musculoskeletal Musculoskeletal: Reports back pain Integumentary/Breasts Skin/Breast: Denies rash [facility] Medical History (Updated 04/27/20 @ 17:18 by Edgar Gutierrez MD) Depressive disorder Follicular thyroid cancer (~1991) Generalized anxiety disorder Hypothyroidism Morbid obesity Myopathy MONSE (obstructive sleep apnea) Panic disorder Surgical History Abdominal hysterectomy (~1991) Ovaries remain Cholecystectomy (01/10/04) Hernia repair, ventral, 2013, [place] Thyroid (06/26/92) Complete thyroidectomy for follicular thyroid CA Family History Father , COPD at age 72. Substance abuse Alcoholic Diabetes COPD (chronic obstructive pulmonary disease) Smoker Mother Heart disease Myocardial infarction x2 Sister No problems noted. Sister No problems noted. Sister No problems noted. Sister No problems noted. Brother No problems noted. Social History Smoking/Tobacco Use Status: Current-Occasional Tobacco Type: cigarettes Smoking risk assessment performed?: Yes Alcohol Intake: never Drug use: Occasionally Substance use type: marijuana Do you feel safe at home: Yes Do you feel safe in your relationship?: Yes Exam Const General: cooperative and no acute distress HENMT Head: normocephalic and atraumatic Mouth: moist mucous membranes Eyes Conjunctivae: normal conjunctivae Sclera: normal sclerae EOM: EOM intact bilaterally Neck Neck: trachea midline and supple Resp Auscultation: clear to auscultation bilaterally, no rales, no rhonchi and no wheezes Cardio Jugular venous pressure: no JVD Rate: regular rate and not tachycardic Rhythm: regular rhythm GI Palpation: soft, not firm, no guarding, no masses, not rigid and nontender Back/Spine/Pelvis Cervical Spine: No cervical spinal tenderness and No step off deformity Thoracic/Lumbar Spine: paraspinal tenderness (Left lumbar paraspinal), No thoracic spinal tenderness and lumbar spinal tenderness Skin General skin exam: no rashes or lesions noted Neuro General: patient alert, patient awake, patient oriented x3 and tone normal Cognition: normal cognition Motor: strength 5/5 throughout (Bilateral lower extremities) Sensory Exam: no sensory deficits noted (Bilateral lower extremities) Extrem General: no edema Psych Appearance: grossly normal Mental Status: mental status grossly normal Speech and Movement: speech and movement normal Course Vital Signs Vital signs: Vital Signs Temperature 36.6 C 04/27/20 15:31 Pulse 85 04/27/20 15:31 Respiratory Rate 16 04/27/20 15:31 Blood Pressure 155/91 H 04/27/20 15:31 Pulse Oximetry 96 04/27/20 15:31 Temperature 36.6 C 04/27/20 15:31 Temperature Source Skin 04/27/20 15:31 Pulse 85 04/27/20 15:31 Respiratory Rate 16 04/27/20 15:31 Respiratory Effort Non-Labored 04/27/20 15:31 Blood Pressure 155/91 H 04/27/20 15:31 Blood Pressure Position Supine 04/27/20 15:31 Pulse Oximetry 96 04/27/20 15:31 Oxygen Delivery Method Room Air 04/27/20 15:31 Oxygen Flow Rate 0 04/27/20 15:31 Pain Level 7 04/27/20 15:49 Lab/Test Results Lab/Test Results: Laboratory Tests Range/Units 04/27/20 15:45 Urine Color (Yellow) Yellow Urine Clarity (Clear) Clear Urine pH (5-8) 6.5 Ur Specific [place] (1.005-1.025) 1.010 Urine Protein (Negative) mg/dL Negative Urine Ketones (Negative) mg/dL Negative Urine Blood (Negative) Trace-intact H Urine Nitrite (Negative) Negative Urine Bilirubin (Negative) Negative Urine Urobilinogen (Up TO 0.2) EU/dL 0.2 Ur Leukocyte Esterase (Negative) Negative Urine RBC (0-2) HPF 0-2 Urine WBC (0-5) HPF 0-2 Ur Epithelial Cells (Negative) HPF Few Urine Crystals (Negative) HPF Negative Urine Bacteria (Negative) HPF Negative Urine Casts (Negative) LPF Negative Urine Mucus (Negative) Negative Ur Culture Indicated? No Urine Glucose (Negative) mg/dL Negative
[2020-04-27] MEDS: Ketorolac 30 MG/ML VIAL IM (16:23)
[2020-04-27] MEDS: Ondansetron O.D.T. 4 MG TABEF PO (16:24)
[2020-04-27] MEDS: Lidocaine 5% Patch 1 PATCH TP (16:25)
[2020-04-27 18:06] VITALS: BP 142/88; PULSE 80; RESP 18; O2SAT 96
== END 2020-04-27 17:58 | disposition home or self-care (01) ==
PROVIDERS: Emergency Provider Student in an Organized Health Care Education/Training Program; PCP Nurse Practitioner Family
DX: M54.5 Low back pain (principal); R11.0 Nausea; M47.896 Other spondylosis, lumbar region; E66.01 Morbid (severe) obesity due to excess calories; Z68.44 Body mass index [BMI] 60.0-69.9, adult
CPT/HCPCS: 96372; 99284; 81003; 81015; J1885

== ENCOUNTER 2020-08-13 13:43 | Outpatient (REF) | payer MEDICARE, MEDICAID, SELFPAY ==
[2020-08-13 16:32] LABS: TSH (W/Ref FT4) 2.34 uIU/mL (0.36-3.74)
== END 2020-08-13 13:44 | disposition home or self-care (01) ==
LOC: NCHCN 13:43
PROVIDERS: PCP Nurse Practitioner Family; Visit Provider Nurse Practitioner Family
DX: E03.9 Hypothyroidism, unspecified (principal)
CPT/HCPCS: 84443

== ENCOUNTER 2021-01-21 09:00 | Outpatient (CLI) | payer MEDICARE, MEDICAID, SELFPAY ==
[2021-01-21 11:44] LABS: TSH 5.61 uIU/mL (0.36-3.74)
== END 2021-01-21 09:01 | disposition home or self-care (01) ==
PROVIDERS: PCP Nurse Practitioner Family; Visit Provider Internal Medicine Endocrinology, Diabetes & Metabolism
DX: E89.0 Postprocedural hypothyroidism (principal)
CPT/HCPCS: 36415; 84443

== ENCOUNTER 2021-04-08 09:32 | Emergency (ER) | payer MEDICARE, MEDICAID, SELFPAY ==
[2021-04-08 09:43] VITALS: BP 129/80; PULSE 78; RESP 14; TEMP 36.2; O2SAT 98
--- NOTE | 2021-04-08 10:01 | W.ED.GENAD ---
Discharge Plan Disposition Patient Disposition: HOME Condition: Stable Discharge Details Clinical Impression: Acute right ankle pain Primary Care Provider: Lynne Ramírez ED Provider: Xin Finley Home Meds and New Rx's Prescriptions: No Action magnesium oxide 500 mg capsule 500 mg PO DAILY RF: 0 hydroxyzine HCl 25 mg tablet 25 mg PO QID PRN (Reason: headaches) Qty: 30 RF: 1 omeprazole 20 mg capsule,delayed release(DR/EC) 20 mg PO DAILY RF: 0 alprazolam 1 MG tablet 1 mg PO PRN PRNRF: 0 alprazolam 3 MG tablet extended release 24 hr 3 mg PO BID RF: 0 (DME) Ultra-Light Rollator 1 EACH misc Miscellaneous DAILY Qty: 1 RF: 0 Shower chair 1 unit Miscellaneous DAILY Qty: 1 RF: 0 cholecalciferol (vitamin D3) 1,000 UNIT tablet 2,000 unit PO DAILY Qty: 180 RF: 3 CBD oil 13 drp PO DAILY RF: 0 levothyroxine [Synthroid] 200 mcg tablet 200 mcg PO DAILY RF: 0 acetaminophen [Acetaminophen Extra Strength] 500 mg tablet 1,500 mg PO BID RF: 0 Discharge Instructions Instructions: Arthralgia (ED) Additional Instructions: The ankle x-rays show a possible avulsion type injury which is a small tiny little bone on the inside of your ankle. You also have some increased calcification on the Achilles tendon area. Wear the walking boot as tolerated while up and around for immobilization. When sitting or lying down rest ice compression elevation. Use a walker. Follow-up with orthopedic within the next 1 to 2 weeks. Rest ice compression elevation. Continue to take Tylenol as previously done. Discuss possible steroid injections with Ortho he also try [id number] diclofenac topical ointment which may help. Referrals: Vamsi Bryant MD [ [facility] STAFF PHYSICIAN] - Lynne Ramírez [Primary Care Provider] - Discharge Data Discharge Date/Time-TO BE ENTERED AT DEPARTURE: 04/08/21 11:24 Medical Decision Making 56-year-old female with past medical history of osteoarthritis of knees, obstructive sleep apnea, morbid obesity, hyperlipidemia, hypothyroidism, stage III chronic kidney disease presents to the ED with chief complaint of right ankle pain for the last week which is gotten worse increased pain with weightbearing. Denies any known injury. On initial exam no erythema, swelling, warmth or induration. Has been taking Tylenol 1 g up to 3 times daily as needed with little to no relief. Has been trying ice procedures per patient report. Pain is worse with inversion. Mild tenderness on palpation to right lateral malleolus and Achilles tendons. X-ray ordered. We will plan for follow-up with Ortho if symptoms persist. I do suspect osteoarthritis differential diagnosis includes but not limited to fracture, sprain, gout EXAM: XR ANKLE RT COMPLETE CLINICAL HISTORY: Pain x 1 week. TECHNIQUE: 2D digital imaging was performed. COMPARISON: No exams were available for comparison FINDINGS: There is soft tissue swelling medially. There is a tiny calcific density immediately subjacent to the medial malleolus which may be a subtle avulsion injury. No lateral malleolar fractures nor widening of the mortise. Talar dome appears unremarkable. There is a dorsal talar beak noted. No evidence of osseous tarsal coalition. Calcification is noted posteriorly at the insertional aspect of the Achilles tendon. IMPRESSION: Small calcific density immediately subjacent to the medial malleolus with overlying soft tissue swelling. This may represent a small avulsion injury. Correlation with site of tenderness recommended. No widening of the mortise. We will place patient in a walking boot instruct to use walker with weightbearing as tolerated. Follow-up with orthopedic. HPI General Mode of arrival: wheelchair. Date/Time Provider Initiated Documentation: 04/08/21 09:53. Information obtained by: patient, RN notes reviewed and old records reviewed. HPI Narrative: 56-year-old female with past medical history of osteoarthritis of knees, obstructive sleep apnea, morbid obesity, hyperlipidemia, hypothyroidism, stage III chronic kidney disease presents to the ED with chief complaint of right ankle pain for the last week which is gotten worse increased pain with weightbearing. Denies any known injury. On initial exam no erythema, swelling, warmth or induration. Has been taking Tylenol 1 g up to 3 times daily as needed with little to no relief. Has been trying ice procedures per patient report. Pain is worse with inversion. Mild tenderness on palpation to right lateral malleolus and Achilles tendons. Related Data Home Medications Medication Instructions Recorded Confirmed alprazolam 1 mg PO PRN PRN 10/18/12 04/08/21 alprazolam 3 mg PO BID 04/24/13 10/13/21 Ultra-Light Rollator #1 06/03/17 05/13/19 cholecalciferol (vitamin D3) 2,000 unit PO DAILY #180 tab-cap 11/02/17 04/08/21 Cbd Oil 13 drp PO DAILY 11/18/17 04/27/20 acetaminophen 500 mg tablet 1,500 mg PO BID tab 08/02/18 04/08/21 hydroxyzine HCl 25 mg tablet 25 mg PO QID PRN #30 tab 08/02/18 04/08/21 magnesium oxide 500 mg capsule 500 mg PO DAILY cap 08/02/18 04/08/21 omeprazole 20 mg capsule,delayed 20 mg PO DAILY 01/02/19 04/08/21 release levothyroxine [Synthroid] 200 mcg PO DAILY 04/08/21 04/08/21 Previous Rx's Medication Instructions Recorded cholecalciferol (vitamin D3) 2,000 unit PO DAILY #180 tab-cap 11/02/17 hydroxyzine HCl 25 mg tablet 25 mg PO QID PRN #30 tab 08/02/18 Allergies Allergy/AdvReac Type Severity Reaction Status Date / Time NSAIDS (Non-Steroidal AdvReac Severe Other (See Unverified 04/08/21 09:48 Anti-Inflamma Comment) gabapentin AdvReac Mild Sleepiness Unverified 04/08/21 09:48 General Stated Complaint: Orthopedic DANA: 4 Review of Systems All systems reviewed & are unremarkable except as noted in HPI and below Musculoskeletal Musculoskeletal: Denies deformity and Reports arthralgias (Right ankle worsening over the last week. Using a walker) Comments: Osteoarthritis neck back bilateral knees [facility] Medical History (Updated 04/08/21 @ 10:52 by Xin Finley) Depressive disorder Follicular thyroid cancer (~1991) Generalized anxiety disorder Hypothyroidism Morbid obesity Myopathy MONSE (obstructive sleep apnea) Panic disorder Surgical History Abdominal hysterectomy (~1991) Ovaries remain Cholecystectomy (01/10/04) Hernia repair, ventral, 2013, [place] Thyroid (06/26/92) Complete thyroidectomy for follicular thyroid CA Family History Father , COPD at age 72. Substance abuse Alcoholic Diabetes COPD (chronic obstructive pulmonary disease) Smoker Mother Heart disease Myocardial infarction x2 Sister No problems noted. Sister No problems noted. Sister No problems noted. Sister No problems noted. Brother No problems noted. Social History Smoking/Tobacco Use Status: Current every day Tobacco Type: cigarettes Smoking risk assessment performed?: Yes Alcohol Intake: never Drug use: Occasionally Substance use type: marijuana Do you feel safe at home: Yes Do you feel safe in your relationship?: Yes Exam Extrem Right lower extremity: ankle Details: tenderness Location: of the lateral malleolus, of the medial malleolus and of the achilles tendon and no edema; no unusual warmth Course Vital Signs Vital signs: Vital Signs Temperature 36.2 C L 04/08/21 09:43 Pulse 78 04/08/21 09:43 Respiratory Rate 14 04/08/21 09:43 Blood Pressure 129/80 04/08/21 09:43 Pulse Oximetry 98 04/08/21 09:43 Temperature 36.2 C L 04/08/21 09:43 Temperature Source Skin 04/08/21 09:43 Pulse 78 04/08/21 09:43 Respiratory Rate 14 04/08/21 09:43 Respiratory Effort Non-Labored 04/08/21 09:51 Blood Pressure 129/80 04/08/21 09:43 Blood Pressure Position Sitting 04/08/21 09:43 Pulse Oximetry 98 04/08/21 09:43 Oxygen Delivery Method Room Air 04/08/21 09:43 Oxygen Flow Rate 0 04/08/21 09:43 Pain Level 5 04/08/21 09:53
--- NOTE | 2021-04-08 10:20 | DI.RAD_ITS ---
Exam(s) XR ANKLE RT COMPLETE EXAM: XR ANKLE RT COMPLETE CLINICAL HISTORY: Pain x 1 week. TECHNIQUE: 2D digital imaging was performed. COMPARISON: No exams were available for comparison FINDINGS: There is soft tissue swelling medially. There is a tiny calcific density immediately subjacent to th e medial malleolus which may be a subtle avulsion injury. No lateral malleolar fractures nor widenin g of the mortise. Talar dome appears unremarkable. There is a dorsal talar beak noted. No evidence of osseous tarsal coalition. Calcification is noted posteriorly at the insertional aspect of the Ac hilles tendon. IMPRESSION: Small calcific density immediately subjacent to the medial malleolus with overlying soft tissue swell ing. This may represent a small avulsion injury. Correlation with site of tenderness recommended. No widening of the mortise. DATA REPOSITORY: . RADIATION DOSE DELIVERED:
== END 2021-04-08 11:24 | disposition home or self-care (01) ==
PROVIDERS: Emergency Provider Registered Nurse Emergency; PCP Nurse Practitioner Family
DX: M25.571 Pain in right ankle and joints of right foot (principal)
CPT/HCPCS: 29515; 99283; 73610

== ENCOUNTER 2021-07-23 03:37 | Outpatient (CLI) | payer OTHER, MEDICAID, SELFPAY ==
[2021-07-23 10:56] LABS: TSH 3.08 uIU/mL (0.36-3.74)
== END 2021-07-23 03:38 | disposition home or self-care (01) ==
LOC: LBO 03:37
PROVIDERS: PCP Nurse Practitioner Family; Visit Provider Internal Medicine Endocrinology, Diabetes & Metabolism
DX: E89.0 Postprocedural hypothyroidism (principal)
CPT/HCPCS: 36415; 84443

== ENCOUNTER 2021-09-30 21:44 | Emergency (ER) | payer OTHER, MEDICAID, SELFPAY ==
[2021-09-30 21:52] VITALS: BP 144/84; PULSE 89; RESP 18; TEMP 37.5; O2SAT 97
--- NOTE | 2021-09-30 22:00 | DI.CT_ITS ---
Exam(s) CT CHEST/ABD/PEL W EXAM: CT CHEST/ABD/PEL W CLINICAL HISTORY: nausea, generalized abdominal pain, cough, chills. TECHNIQUE: Imaging Protocol: Axial computed tomography images with coronal and sagittal reformatted images were created and reviewed CONTRAST MATERIAL: Intravenous: Omnipaque 350 Contrast volume:100 mL Oral: No COMPARISON: CT CT CHEST/ABD/PEL WO from 05/13/2019 FINDINGS: CHEST: Tracheobronchial tree: Patent where visualized. Pulmonary parenchyma: No consolidation or dominant measurable mass. No architectural distortion. Visualized thyroid gland: Unremarkable. Mediastinum and [place]: No dominant adenopathy or fluid collection. The esophagus is unremarkable. Pleura: No effusion or pneumothorax. Heart: The heart is not dilated. No coronary artery calcifications are seen. No pericardial effusion. Pulmonary arteries: The peripheral pulmonary arteries are poorly opacified. No central pulmonary emb olus is seen. Aorta: Thoracic aorta non-dilated. Lymph nodes: Within normal limits. Soft tissues: Unremarkable. Bones:Within normal limits for the patient's age. ABDOMEN: Liver: Normal density. There is again seen a 2 cm cyst in the inferior right lobe of the liver. No f ollow-up is recommended. Portal, Superior Mesenteric, and Splenic Veins: Unremarkable. Gallbladder and Biliary Tract: Status post cholecystectomy. No biliary ductal dilatation. Pancreas: Normal density, no abnormal calcifications or inflammatory process. Spleen: Normal. Adrenals: No masses seen. Kidneys: Normal size, contour and axis. No radiodense stones or obstructive uropathy. There is a stab le left renal cyst. No follow-up is recommended. Abdominal Aorta: Abdominal portion non-dilated. Atherosclerosis. Bowel: No obstruction or bowel wall thickening. No evidence of appendicitis. There are diverticula i n the sigmoid colon, but no evidence of acute diverticulitis. Peritoneal Cavity: No ascites, collection or mesenteric inflammatory response. No free air. Lymph Nodes: Within normal limits. Bones: Within normal limits for the patient's age. Soft Tissues: There are fat containing anterior abdominal wall hernia. PELVIS: Bladder: Symmetric distention, no gross wall thickening. Reproductive Organs: Status post hysterectomy. Lymph Nodes: Within normal limits. Bones: Within normal limits. IMPRESSION: 1. No acute abdominal or pelvic process. 2. No acute pulmonary process. RADIATION DOSE DELIVERED: 2,441.06mGy.cm Total DLP DATA REPOSITORY: All CT scans at this facility are submitted to the National Radiology Data Registry (NRDR) Dose Index Registry (DIR) with the [employer] (A[employer]). RADIATION OPTIMIZATION: All CT scans at this facility use at least one of these dose optimization te chniques: automated exposure control; mA and/or kV adjustment per patient size (includes targeted exa ms where dose is matched to clinical indication); or iterative reconstruction.
--- NOTE | 2021-09-30 22:00 | DI.CT_ITS ---
Exam(s) CT BRAIN NECK CTA EXAM: CT BRAIN NECK CTA CLINICAL HISTORY: headache, hx of aneurysm. TECHNIQUE: Imaging Protocol: Axial CT angiography was performed with multi-slice acquisition and mu lti-planar and/or 3D reconstructions. CONTRAST MATERIAL: Intravenous: Omnipaque 350 Contrast volume:100 mL COMPARISON: No previous for comparison FINDINGS: CT Head W/O and W: Ventricles and Extra axial spaces: Normal in size and morphology for the patient's age. Hemorrhage: None. Cerebral parenchyma: Normal. Midline shift: None. Brainstem/Cerebellum: Normal. Calvarium: Normal. Visualized Paranasal sinuses/Mastoids: Clear. Soft Tissues: Unremarkable. Enhancement: Unremarkable. CTA Neck W: Common Carotid: Right: No dissection, occlusion or significant stenosis. Left: No dissection, occlusion or significant stenosis. External Carotid: Right: No occlusion or significant stenosis. Left: No occlusion or significant stenosis. Internal Carotid: Right: No dissection, occlusion or significant stenosis. Left: No dissection, occlusion or significant stenosis. Vertebral Artery: Right: No dissection, occlusion or significant stenosis. Left: No dissection, occlusion or significant stenosis. Lung Apices: Normal. Bones: Within normal limits for the patient's age. Soft Tissues: Normal. Thyroid gland: Unremarkable. CTA Brain W: Internal Carotid Arteries: Normal. Anterior Cerebral Arteries: Right: No aneurysm, occlusion or significant stenosis. Left: No aneurysm, occlusion or significant stenosis. Middle Cerebral Arteries: Right: No aneurysm, occlusion or significant stenosis. Left: No aneurysm, occlusion or significant stenosis. Posterior Cerebral Arteries: Right: No aneurysm, occlusion or significant stenosis. Left: No aneurysm, occlusion or significant stenosis. Vertebral Arteries: Right: No aneurysm, occlusion or significant stenosis. Left: No aneurysm, occlusion or significant stenosis. Basilar Artery: No aneurysm, occlusion or significant stenosis. IMPRESSION: 1. No large vessel occlusion or significant stenosis on the CT angiography of the head. 2. No acute intracranial process. 3. No occlusion or significant stenosis on the CT angiography of the neck. RADIATION DOSE DELIVERED: 2,717.45mGy.cm Total DLP DATA REPOSITORY: All CT scans at this facility are submitted to the National Radiology Data Registry (NRDR) Dose Index Registry (DIR) with the [employer] (ACR). RADIATION OPTIMIZATION: All CT scans at this facility use at least one of these dose optimization te chniques: automated exposure control; mA and/or kV adjustment per patient size (includes targeted exa ms where dose is matched to clinical indication); or iterative reconstruction.
[2021-09-30 22:10] LABS: Source Nasal/Nares
[2021-09-30 22:12] LABS: Abs Immature Grans 0.03 10^3/uL (0.0-0.06); Absolute Basophil Count 0.07 10^3/uL (0.0-0.2); Absolute Eosinophil Count 0.03 10^3/uL (0.0-0.7); Absolute Lymphocyte Count 2.02 10^3/uL (1.2-3.4); Absolute Monocyte Count 0.28 10^3/uL (0.1-0.8); Absolute Neutrophil Count 5.99 10^3/uL (1.2-6.7); Basophils % 0.8; Eosinophils % 0.4; HCT 45.7 % (36.0-46.0); Immature Grans % 0.4; Lactate 1.2 mmol/L (0.6-1.4); MCH 31.2 pg (27.0-33.0); MCHC 32.8 % (32.0-36.0); MPV 10.1 fL (8.0-11.0); Monocytes % 3.3; Neutrophils % 71.1; Nucleated RBC 0 %; Platelet Count 175 10^3/uL (130-400); RBC 4.81 10^6/uL (3.93-5.22); RDW 12.7 % (11.7-14.6); RDW-SD 44.8 fL; WBC 8.42 10^3/uL (4.4-10.8)
[2021-09-30 22:13] VITALS: O2SAT 93
--- NOTE | 2021-09-30 22:22 | ED.GENADUL_ITS ---
Discharge Plan Discharge Details Chief Complaint: Headache Primary Care Provider: Lynne Ramírez ED Provider: Torrey Tobar Home Meds and New Rx's Prescriptions: No Action magnesium oxide 500 mg capsule 500 mg PO DAILY 0RF hydroxyzine HCl 25 mg tablet 25 mg PO QID PRN (Reason: headaches) Qty: 30 1RF Rx Instructions: Take 1-2 tabs every 6 hours as needed for headaches. omeprazole 20 mg capsule,delayed release(DR/EC) 20 mg PO DAILY 0RF alprazolam 1 MG tablet 1 mg PO PRN PRN0RF Rx Instructions: SWAPNA VAUGHAN. APPROX 2/WK alprazolam 3 MG tablet extended release 24 hr 3 mg PO BID 0RF Rx Instructions: SWAPNA VAUGHAN (DME) Ultra-Light Rollator 1 EACH misc Miscellaneous DAILY Qty: 1 0RF Rx Instructions: Dispense one ultra-light COLLAPSABLE walker Shower chair 1 unit Miscellaneous DAILY Qty: 1 0RF Rx Instructions: Dispense one heavy duty shower chair capable of supporting patient's weight (up to 400 lbs) cholecalciferol (vitamin D3) 1,000 UNIT tablet 2,000 unit PO DAILY Qty: 180 3RF CBD oil 13 drp PO DAILY 0RF levothyroxine [Synthroid] 200 mcg tablet 200 mcg PO DAILY 0RF Label Comments: TAKE ONE TABLET BY MOUTH EVERY DAY acetaminophen [Acetaminophen Extra Strength] 500 mg tablet 1,500 mg PO BID 0RF Medical Decision Making This is a 56-year-old female with a past medical history of BMI of 64, generalized anxiety disorder, hypothyroidism, obstructive sleep apnea, previous brain aneurysm follicular thyroid cancer 1991, abdominal hysterectomy, cholecystectomy, ventral hernia repair, who presents today for complaint of abdominal pain generalized, nausea, headache, cough, chills. Patient states that the abdominal pain is achy and generalized. She feels notably nauseous and does not want anything to eat. She denies any diarrhea or vomiting. She denies any chest pain, or significant shortness of breath. She does admit to a mild cough for the last few days. Abdominal pain and cough do not appear to be worsened or relieved by anything in particular. She describes the headache as is present in the back of her head. She states she does have a history of previous brain aneurysm and migraines and states that this feels similar to the migraines slightly worse. She states that her repeat imaging of her head in the past that showed that the aneurysm has resolved. She denies that this is the worst headache of her life. She denies any thunderclap onset of a headache. No other complaints at this time. No other modifying factors. Physical exam demonstrate generalized abdominal tenderness in the epigastric left and right regions. No pain to McBurney's point. No focal neurologic deficits. No nuchal rigidity. Negative Kernig's and Brudzinski sign. Symptoms at this time appear clinically inconsistent with meningitis. She has no fever or tachycardia. Headache was gradual in onset, and seems unlikely and inconsistent with aneurysm or rupture. The patient did just have a COVID shot/Moderna 1 week ago, she states that she endured this fine without complication. However Covid or viral illness is certainly on the differential. Additionally with her abdominal tenderness pancreatitis or acute abdominal pathology is also of concern. Differential is broad. We will get CT scan/CTA of the head and neck, as well as CT of the chest and abdomen to evaluate for signs of pneumonia, acute abdominal process, mass, or new aneurysm. Will monitor closely reassess FINDINGS: ANTERIOR CIRCULATION: Right internal carotid artery: Intracranial segment is patent with no significant stenosis or occlusion. No aneurysm. Right middle cerebral artery: No occlusion or significant stenosis. No aneurysm. Right anterior cerebral artery: No occlusion or significant stenosis. No aneurysm. Left internal carotid artery: Intracranial segment is patent with no significant stenosis. No aneurysm. Left middle cerebral artery: No occlusion or significant stenosis. No aneurysm. Left anterior cerebral artery: No occlusion or significant stenosis. No aneurysm. POSTERIOR CIRCULATION: Right vertebral artery: No occlusion or significant stenosis. No aneurysm. Left vertebral artery: No occlusion or significant stenosis. No aneurysm. Basilar artery: No occlusion or significant stenosis. No aneurysm. Right posterior cerebral artery: No occlusion or significant stenosis. No aneurysm. Left posterior cerebral artery: No occlusion or significant stenosis. No aneurysm. HEAD: Brain: Cerebrum is unremarkable. Figueroa-white matter differentiation is intact. No mass lesion is seen. No mass effect or midline shift. Thalamus is unremarkable. No evidence of hemorrhage. Cerebellum is unremarkable. No posterior fossa mass lesion or mass effect. No pathologic edema. No evidence of cerebellar hemorrhage. Brainstem is unremarkable. No evidence of pontine hemorrhage. No mass effect on the brainstem. Cerebral ventricles: Normal. No ventriculomegaly. Bones/joints: Unremarkable. No acute fracture. Paranasal sinuses: Visualized sinuses are normal. No fluid levels. Mastoid air cells: Visualized mastoids are normal. No mastoid effusion. Soft tissues: No areas of abnormal enhancement after contrast administration. IMPRESSION: No evidence of large vessel occlusion or significant stenosis. FINDINGS: Right common carotid artery: No stenosis. No dissection or occlusion. Right internal carotid artery: No stenosis of the extracranial segment. No dissection or occlusion. Right external carotid artery: No occlusion or stenosis of the origin. Left common carotid artery: No stenosis. No dissection or occlusion. Left internal carotid artery: No stenosis of the extracranial segment. No dissection or occlusion. Left external carotid artery: No occlusion or stenosis of the origin. Right vertebral artery: No stenosis. No dissection or occlusion. Left vertebral artery: No stenosis. No dissection or occlusion. Soft tissues: Normal. No significant soft tissue swelling. Bones/joints: No acute fracture. IMPRESSION: No evidence of vascular stenosis by NASCET criteria. HPI General Date/Time Provider Initiated Documentation: 09/30/21 22:01 . HPI Narrative: This is a 56-year-old female with a past medical history of BMI of 64, generalized anxiety disorder, hypothyroidism, obstructive sleep apnea, previous brain aneurysm follicular thyroid cancer 1991, abdominal hysterectomy, cholecystectomy, ventral hernia repair, who presents today for complaint of abdominal pain generalized, nausea, headache, cough, chills. Patient states that the abdominal pain is achy and generalized. She feels notably nauseous and does not want anything to eat. She denies any diarrhea or vomiting. She denies any chest pain, or significant shortness of breath. She does admit to a mild cough for the last few days. Abdominal pain and cough do not appear to be worsened or relieved by anything in particular. She describes the headache as is present in the back of her head. She states she does have a history of previous brain aneurysm and migraines and states that this feels similar to the migraines slightly worse. She states that her repeat imaging of her head in the past that showed that the aneurysm has resolved. She denies that this is the worst headache of her life. She denies any thunderclap onset of a headache. No other complaints at this time. No other modifying Related Data Home Medications Medication Instructions Recorded Confirmed alprazolam 1 mg tablet 1 mg PO PRN PRN 10/18/12 04/08/21 alprazolam 3 mg tablet,extended 3 mg PO BID 10/18/12 04/08/21 release 24 hr walker (Ultra-Light Rollator) #1 06/03/17 05/13/19 cholecalciferol (vitamin D3) 25 2,000 unit PO DAILY #180 tab-cap 11/02/17 04/08/21 mcg (1,000 unit) tablet Cbd Oil 13 drp PO DAILY 11/18/17 04/27/20 acetaminophen 500 mg tablet 1,500 mg PO BID tab 08/02/18 04/08/21 (Acetaminophen Extra Strength) hydroxyzine HCl 25 mg tablet 25 mg PO QID PRN #30 tab 08/02/18 04/08/21 magnesium oxide 500 mg capsule 500 mg PO DAILY cap 08/02/18 04/08/21 omeprazole 20 mg capsule,delayed 20 mg PO DAILY 01/02/19 04/08/21 release levothyroxine 200 mcg tablet 200 mcg PO DAILY 04/08/21 04/08/21 (Synthroid) Previous Rx's Medication Instructions Recorded cholecalciferol (vitamin D3) 25 2,000 unit PO DAILY #180 tab-cap 11/02/17 mcg (1,000 unit) tablet hydroxyzine HCl 25 mg tablet 25 mg PO QID PRN #30 tab 08/02/18 Allergies Allergy/AdvReac Type Severity Reaction Status Date / Time NSAIDS (Non-Steroidal AdvReac Severe Other (See Unverified 04/08/21 09:48 Anti-Inflamma Comment) gabapentin AdvReac Mild Sleepiness Unverified 04/08/21 09:48 General Stated Complaint: Headache DANA: 3 Review of Systems All systems reviewed & are unremarkable except as noted in HPI and below PFSH All Active Problems Acute right ankle pain (Acute) 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 [facility] [place] derm. 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 S/p muscle bx & NCS's Myofascial pain (Acute 09/07/16) Morbid obesity (Acute 06/09/12) Binge eating at night Lumbar spondylosis (Chronic 10/10/13) L2-L3, L3-L4; facet hypertrophy; no spondylolisthesis [facility] injections (B/L lumbar medial branch block), 10/26/2013, 02/26/14 IFG (impaired fasting glucose) (Acute 11/12/15) 10/2016 HbA1c 5.5% Hypothyroidism (Acute 12/06/11) s/p subtotal thyroidectomy & radiation s/p thyroid cancer monitor annual thyroglobulin Ab Hyperlipidemia, unspecified (Acute 11/12/15) 10/2016 labwork: ACC/AHA 10-year ASCVD risk = ~7.3% --> no statin indicated at this time History of nicotine dependence (Acute 03/21/14) Quit 02/2014 Generalized anxiety disorder (Acute 02/28/13) Swapna Vaughan, multifocal button generator Depressive disorder (Acute 02/28/13) Sofia Vaughan, multifocal button generator Chronic low back pain (Acute) Lumbar spine x-ray 04/2013: mild-moderate degenerative changes [facility] injections (B/L lumbar medical branch block) 10/2013, 02/2014 Chronic kidney disease, stage 3 (moderate) (Acute 11/01/16) Bilateral knee pain (Acute 03/21/14) X-rays 04/2013: medial osteoarthritis BMI 60.0-69.9, adult (Acute) Spondylosis of lumbar region without myelopathy or radiculopathy (Chronic) Medical History Depressive disorder Follicular thyroid cancer (~1991) Generalized anxiety disorder Hypothyroidism Morbid obesity Myopathy MONSE (obstructive sleep apnea) Panic disorder Surgical History Abdominal hysterectomy (~1991) Ovaries remain Cholecystectomy (01/10/04) Hernia repair, ventral, 2013, [place] Thyroid (06/26/92) Complete thyroidectomy for follicular thyroid CA Family History Father , COPD at age 72. Substance abuse Alcoholic Diabetes COPD (chronic obstructive pulmonary disease) Smoker Mother Heart disease Myocardial infarction x2 Sister No problems noted. Sister No problems noted. Sister No problems noted. Sister No problems noted. Brother No problems noted. Social History Smoking/Tobacco Use Status: Current every day Tobacco Type: cigarettes Smoking risk assessment performed?: Yes Alcohol Intake: never Drug use: Occasionally Substance use type: marijuana Do you feel safe at home: Yes Do you feel safe in your relationship?: Yes Exam Narrative Exam Narrative: 1.Const: Well-nourished, Well-developed, appearing stated age 2.Eyes: PERRL, no conjunctival injection, and symmetrical lids. 3.ENT: Atraumatic external nose and ears. Moist MM. Neck: Symmetric, trachea midline, No thyromegaly. Patient demonstrates good movement of cervical neck. There is no nuchal rigidity, no nuchal tenderness but patient does have some mild achiness in the posterior nuchal region patient is able to flex the neck without any difficulty or significant pain. Negative Kernig's and Brudzinski sign on exam. 4.CVS: +S1/S2, No murmurs or gallops. Peripheral pulses 2+ and equal in all extremities. Brisk capillary refill in all extremities. 5.RESP: Unlabored respiratory effort. Clear to auscultation bilaterally. No wheezes rales or rhonchi 6.GI: Soft, mild tenderness in the epigastric region, left and right upper abdominal and left and right mid regions. No guarding or rebound. No pelvic tenderness. 7.MSK: Normocephalic/Atraumatic, Extremities w/o deformity or ttp No cyanosis or clubbing, Normal movement of all extremities 8.Skin: Warm, Dry. No rashes or lesions. 9.Neuro: lead assistant manager II-XII grossly intact. Sensation grossly intact, no focal neurologic deficits. 10.Psych: (AAO) x3. Appropriate mood and affect Course Vital Signs Vital signs: Vital Signs Temperature 37.5 C 09/30/21 21:52 Pulse 89 09/30/21 21:52 Respiratory Rate 18 09/30/21 21:52 Blood Pressure 144/84 H 09/30/21 21:52 Pulse Oximetry 97 09/30/21 21:52 Temperature 37.5 C 09/30/21 21:52 Temperature Source Tympanic 09/30/21 21:52 Pulse 89 09/30/21 21:52 Respiratory Rate 18 09/30/21 21:52 Respiratory Effort 09/30/21 21:57 Blood Pressure 144/84 H 09/30/21 21:52 Blood Pressure Position Supine 09/30/21 21:52 Pulse Oximetry 97 09/30/21 21:52 Oxygen Delivery Method Room Air 09/30/21 21:52 Oxygen Flow Rate 0 09/30/21 21:52 Pain Level 8 09/30/21 21:52 Lab/Test Results Lab/Test Results: Laboratory Tests Range/Units 09/30/21 09/30/21 22:04 22:05 WBC (4.4-10.8) 10^3/uL 8.42 RBC (3.93-5.22) 10^6/uL 4.81 Hgb (11.2-15.7) g/dL 15.0 Hct (36.0-46.0) % 45.7 MCV (80-95) fL 95.0 MCH (27.0-33.0) pg 31.2 MCHC (32.0-36.0) % 32.8 RDW (11.7-14.6) % 12.7 Plt Count (130-400) 10^3/uL 175 MPV (8.0-11.0) fL 10.1 Immature Gran % 0.4 Neutrophils % 71.1 Lymphocytes % 24.0 Monocytes % 3.3 Eosinophils % 0.4 Basophils % 0.8 Nucleated RBC % % 0 Absolute Neutrophils (1.2-6.7) 10^3/uL 5.99 Absolute Lymphocytes (1.2-3.4) 10^3/uL 2.02 Absolute Monocytes (0.1-0.8) 10^3/uL 0.28 Absolute Eosinophils (0.0-0.7) 10^3/uL 0.03 Absolute Basophils (0.0-0.2) 10^3/uL 0.07 COVID-19 Source Nasal/Nares Sign Out Sign Out Data: Sign Out Comment: Cough, chills, headache, abdominal pain, nausea. Pending CT results, Covid test, urinalysis. Last updated by Torrey Tobar DO at 09/30/21 23:11
[2021-09-30 22:40] LABS: Lipase 52 U/L (73-393)
[2021-09-30 22:42] LABS: ALT 37 U/L (14-59); AST 23 U/L (15-37); Albumin 3.5 g/dL (3.4-5.0); Alkaline Phosphatase 83 U/L (46-116); BUN 18 mg/dL (7-18); Bilirubin, Total 0.3 mg/dL (0.2-1.0); CREATININE 0.8 mg/dL (0.55-1.02); Calcium 9.2 mg/dL (8.5-10.1); Chloride 102 mmol/L (98-107); Glucose 140 mg/dL (74-106); Potassium 4.1 mmol/L (3.5-5.1); Sodium 137 mmol/L (136-145); Total Protein 7.3 g/dL (6.4-8.2)
[2021-09-30] MEDS: Omnipaque 350 MG/ML 100 ML BTL 200 ML IJ (23:05)
--- NOTE | 2021-09-30 23:10 | DI.VRAD_ITS ---
PROCEDURE INFORMATION: Exam: CT Angiography Head Without And With Contrast, Arteriography Exam date and time: 09/30/2021 10:30 PM Age: 56 years old Clinical indication: Pain; Dizziness and giddiness and headache; Prior surgery; Surgery date: 6+ months; Surgery type: Thyroidectomy; Patient HX: H/o thyroid CA; Additional info: Headache, dizziness TECHNIQUE: Imaging protocol: Computed tomographic angiography of the head without and with contrast. Exam focused on the arteries. 3D rendering (Not supervised by radiologist): MIP and/or 3D reconstructed images were created by the technologist. Radiation optimization: All CT scans at this facility use at least one of these dose optimization techniques: automated exposure control; mA and/or kV adjustment per patient size (includes targeted exams where dose is matched to clinical indication); or iterative reconstruction. Contrast material: OMNI 350; Contrast volume: 100 ml; Contrast route: INTRAVENOUS (IV); COMPARISON: CT CHEST/ABD/PEL WO 05/13/2019 1:08 PM FINDINGS: ANTERIOR CIRCULATION: Right internal carotid artery: Intracranial segment is patent with no significant stenosis or occlusion. No aneurysm. Right middle cerebral artery: No occlusion or significant stenosis. No aneurysm. Right anterior cerebral artery: No occlusion or significant stenosis. No aneurysm. Left internal carotid artery: Intracranial segment is patent with no significant stenosis. No aneurysm. Left middle cerebral artery: No occlusion or significant stenosis. No aneurysm. Left anterior cerebral artery: No occlusion or significant stenosis. No aneurysm. POSTERIOR CIRCULATION: Right vertebral artery: No occlusion or significant stenosis. No aneurysm. Left vertebral artery: No occlusion or significant stenosis. No aneurysm. Basilar artery: No occlusion or significant stenosis. No aneurysm. Right posterior cerebral artery: No occlusion or significant stenosis. No aneurysm. Left posterior cerebral artery: No occlusion or significant stenosis. No aneurysm. HEAD: Brain: Cerebrum is unremarkable. Figueroa-white matter differentiation is intact. No mass lesion is seen. No mass effect or midline shift. Thalamus is unremarkable. No evidence of hemorrhage. Cerebellum is unremarkable. No posterior fossa mass lesion or mass effect. No pathologic edema. No evidence of cerebellar hemorrhage. Brainstem is unremarkable. No evidence of pontine hemorrhage. No mass effect on the brainstem. Cerebral ventricles: Normal. No ventriculomegaly. Bones/joints: Unremarkable. No acute fracture. Paranasal sinuses: Visualized sinuses are normal. No fluid levels. Mastoid air cells: Visualized mastoids are normal. No mastoid effusion. Soft tissues: No areas of abnormal enhancement after contrast administration. IMPRESSION: No evidence of large vessel occlusion or significant stenosis. PROCEDURE INFORMATION: Exam: CT Angiography Neck Without And With Contrast Exam date and time: 09/30/2021 10:30 PM Age: 56 years old Clinical indication: Pain; Dizziness and giddiness and headache; Prior surgery; Surgery date: 6+ months; Surgery type: Thyroidectomy; Patient HX: H/o thyroid CA; Additional info: Headache, dizziness TECHNIQUE: Imaging protocol: Computed tomographic angiography of the neck without and with contrast. 3D rendering (Not supervised by radiologist): MIP and/or 3D reconstructed images were created by the technologist. Radiation optimization: All CT scans at this facility use at least one of these dose optimization techniques: automated exposure control; mA and/or kV adjustment per patient size (includes targeted exams where dose is matched to clinical indication); or iterative reconstruction. Contrast material: OMNI 350; Contrast volume: 100 ml; Contrast route: INTRAVENOUS (IV); COMPARISON: CT CHEST/ABD/PEL WO 05/13/2019 1:08 PM FINDINGS: Right common carotid artery: No stenosis. No dissection or occlusion. Right internal carotid artery: No stenosis of the extracranial segment. No dissection or occlusion. Right external carotid artery: No occlusion or stenosis of the origin. Left common carotid artery: No stenosis. No dissection or occlusion. Left internal carotid artery: No stenosis of the extracranial segment. No dissection or occlusion. Left external carotid artery: No occlusion or stenosis of the origin. Right vertebral artery: No stenosis. No dissection or occlusion. Left vertebral artery: No stenosis. No dissection or occlusion. Soft tissues: Normal. No significant soft tissue swelling. Bones/joints: No acute fracture. IMPRESSION: No evidence of vascular stenosis by NASCET criteria. REFERENCES: NASCET CRITERIA. The degree of internal carotid artery stenosis is based on NASCET criteria. Normal is no stenosis. Mild is less than 50% stenosis. Moderate is 50-69% stenosis. Severe is 70% to 99% stenosis. Total occlusion is no detectable patent lumen. Dictated and Authenticated by: Ольга David MD. Ordering:YARIEL Hirsch MD
[2021-09-30 23:13] VITALS: O2SAT 93
[2021-09-30 23:14] VITALS: BP 153/71; PULSE 78; O2SAT 94
[2021-09-30 23:15] VITALS: BP 145/67; PULSE 88; O2SAT 93
[2021-09-30 23:16] LABS: COVID-19 PCR Negative (Negative)
[2021-09-30 23:19] LABS: Bilirubin Negative (Negative); Blood Trace-intact (Negative); Clarity Sl Cloudy (Clear); Glucose Negative (Negative); Ketones Negative (Negative); Leukocyte Esterase Negative (Negative); Nitrite Positive (Negative); Urobilinogen 0.2 EU/dL (Up TO 0.2); pH 6.5 (5-8)
[2021-09-30 23:20] VITALS: O2SAT 90
[2021-09-30 23:28] LABS: Epithelial Cells Many HPF (Negative); RBC 0-2 HPF (0-2)
--- NOTE | 2021-09-30 23:28 | DI.VRAD_ITS ---
PROCEDURE INFORMATION: Exam: CTA Chest With Contrast Exam date and time: 09/30/2021 10:46 PM Age: 56 years old Clinical indication: Other: Cough, chills; Abdominal pain; Generalized; Other: No chest pain; Prior surgery; Surgery date: 6+ months; Surgery type: Hysterotomy, hernia surgery, thyroidectomy, lap pascual; Additional info: Generalized abd pain, cough, chills TECHNIQUE: Imaging protocol: Computed tomographic angiography of the chest with contrast. 3D rendering (Not supervised by radiologist): MIP and/or 3D reconstructed images were created by the technologist. Radiation optimization: All CT scans at this facility use at least one of these dose optimization techniques: automated exposure control; mA and/or kV adjustment per patient size (includes targeted exams where dose is matched to clinical indication); or iterative reconstruction. Contrast material: OMNI 350; Contrast volume: 100 ml; Contrast route: INTRAVENOUS (IV); COMPARISON: 1. CT CHEST/ABD/PEL WO 05/13/2019 1:08 PM 2. US ABDOMEN 03/07/2019 7:36 AM FINDINGS: Pulmonary arteries: No pulmonary embolism identified. Aorta: No thoracic aortic aneurysm or dissection. Thyroid: Thyroid gland partially excluded from view but grossly unremarkable through its visualized portion. Lungs: No pulmonary consolidation. Platelike atelectasis at the left base. Pleural spaces: No pleural effusion or pneumothorax. Heart: Normal sized heart. Lymph nodes: No pathologically enlarged mediastinal or hilar lymph nodes. Bones/joints: No acute fracture seen among the bones of the chest. Soft tissues: No gross soft tissue mass or fluid collection seen in the chest wall. IMPRESSION: No active disease is seen in the chest. PROCEDURE INFORMATION: Exam: CT Abdomen And Pelvis With Contrast Exam date and time: 09/30/2021 10:46 PM Age: 56 years old Clinical indication: Other: Cough, chills; Abdominal pain; Generalized; Other: No chest pain; Prior surgery; Surgery date: 6+ months; Surgery type: Hysterotomy, hernia surgery, thyroidectomy, lap pascual; Additional info: Generalized abd pain, cough, chills TECHNIQUE: Imaging protocol: Computed tomography of the abdomen and pelvis with contrast. 3D rendering (Not supervised by radiologist): MIP and/or 3D reconstructed images were created by the technologist. Radiation optimization: All CT scans at this facility use at least one of these dose optimization techniques: automated exposure control; mA and/or kV adjustment per patient size (includes targeted exams where dose is matched to clinical indication); or iterative reconstruction. Contrast material: OMNI 350; Contrast volume: 100 ml; Contrast route: INTRAVENOUS (IV); COMPARISON: 1. CT CHEST/ABD/PEL WO 05/13/2019 1:08 PM 2. US ABDOMEN 03/07/2019 7:36 AM FINDINGS: Liver: Normal appearing liver. Gallbladder and bile ducts: Prior cholecystectomy with mild postop biliary prominence. Pancreas: Normal appearing pancreas. Spleen: Normal appearing spleen. Adrenal glands: Normal appearing adrenal glands. Kidneys and ureters: 1.7 cm left renal cyst. Otherwise normal-appearing kidneys. No hydronephrosis. Stomach and bowel: No oral contrast. Stomach partially distended with ingested material. No small bowel dilatation to suggest obstruction. Colon largely well evacuated of fecal material and collapsed. Scattered colonic diverticula without diverticulitis. Regions of mild mural thickening through the collapsed well evacuated colonic segments. Artifact of incomplete distention suspected primarily. Mimicking colitis not excluded. Appendix: Normal retrocecal appendix. Intraperitoneal space: No gross ascites or free air. Vasculature: Normal caliber abdominal aorta. Subcutaneous varices in the anterior aspect of the proximal left thigh. Lymph nodes: No pathologically enlarged mesenteric, retroperitoneal, or pelvic sidewall lymph nodes. Urinary bladder: Normal appearing urinary bladder. Reproductive: Prior hysterectomy. Ovaries not identified, obscured if present. Correlation with surgical history recommended. Bones/joints: No acute fracture seen among the bones of the abdomen or pelvis. Spinal degenerative change with discogenic degeneration and anterior osteophytes at multiple levels. Soft tissues: 5.7 cm x 6.5 cm x 12.5 cm fat containing ventral hernia at the umbilicus. IMPRESSION: 1. Colon largely well evacuated of fecal material. Mild mural thickening through collapsed segments of the colon. Artifact of incomplete distention is suspected. Segments of colitis could perhaps mimic this appearance. Clinical correlation is recommended. Otherwise, no acute bowel pathology demonstrated. 2. 5.7 cm x 6.5 cm x 12.5 cm fat containing ventral hernia at the umbilicus. Dictated and Authenticated by: Jass Nicole MD. Ordering:YARIEL Hirsch MD
[2021-09-30 23:29] LABS: Bacteria Many HPF (Negative); C & S Indicated? No/Sq. Contamination; Casts Negative LPF (Negative); Crystals Negative HPF (Negative); Mucus Negative (Negative)
[2021-09-30] MEDS: Meclizine 25 MG TAB PO (23:51)
[2021-09-30] MEDS: Ketorolac 15 MG/ML VIAL IVP (23:51)
[2021-09-30] MEDS: Normal Saline 1,000 ML 1000 ML IV (23:51)
[2021-09-30] MEDS: Ondansetron 4 MG/2 ML VIAL IVP (23:52)
[2021-09-30] MEDS: Ondansetron O.D.T. 4 MG TABEF, 3 TABS/BTL PO (23:52)
== END 2021-10-01 00:01 | disposition home or self-care (01) ==
PROVIDERS: Student in an Organized Health Care Education/Training Program; Emergency Provider Emergency Medicine; PCP Nurse Practitioner Family
DX: R53.81 Other malaise (principal); R10.9 Unspecified abdominal pain; R11.0 Nausea; R05.1 Acute cough; R68.83 Chills (without fever); R51.9 Headache, unspecified
CPT/HCPCS: 70496; 70498; 74177; 80053; 83690; 87635; 96361; 96374; 96375; 99284; 99285; 71260; 81003; 81015; 83605; 85025; J1885; J2405; J3490

== ENCOUNTER 2021-10-19 09:45 | Outpatient (REF) | payer OTHER, MEDICAID, SELFPAY ==
[2021-10-19 18:44] LABS: ALT 40 U/L (14-59); AST 22 U/L (15-37); Albumin 3.5 g/dL (3.4-5.0); Alkaline Phosphatase 96 U/L (46-116); Anion Gap 9.6 mmol/L (3-11); BUN 19 mg/dL (7-18); Bilirubin, Total 0.3 mg/dL (0.2-1.0); CO2 25.4 mmol/L (21.0-32.0); CREATININE 0.9 mg/dL (0.55-1.02); Calcium 8.5 mg/dL (8.5-10.1); Calculated LDL 121 mg/dL (<100); Chloride 103 mmol/L (98-107); Cholesterol 227 mg/dL (<200); Glucose 105 mg/dL (74-106); HDL Cholesterol 46 mg/dL (40-60); Potassium 4.1 mmol/L (3.5-5.1); Sodium 138 mmol/L (136-145); T4 8.7 ug/mL (4.7-13.3); TSH 2.55 uIU/mL (0.36-3.74); Total Protein 6.8 g/dL (6.4-8.2); Triglyceride 301 mg/dL (<150); Vitamin B12 630 pg/mL (193-986)
[2021-10-19 18:49] LABS: Vitamin D 25 Total 36.6 ng/mL (30-100)
[2021-10-19 22:15] LABS: C-Reactive Protein 1.02 mg/dL (0.0-0.3); PHOSPHORUS 3.1 mg/dL (2.6-4.7)
[2021-10-20 17:51] LABS: T3, Total 133 ng/dL (97-169)
[2021-10-20 20:20] LABS: Thyroglobulin Antibody <15 U/mL (<=60)
[2021-10-21 12:18] LABS: Lyme Ab w Rflx to Lyme Confirm Negative (Negative)
== END 2021-10-19 09:46 | disposition home or self-care (01) ==
LOC: NCHCN 09:45
PROVIDERS: PCP Nurse Practitioner Family; Visit Provider Nurse Practitioner Family
DX: E03.9 Hypothyroidism, unspecified (principal); G72.9 Myopathy, unspecified; Z68.44 Body mass index [BMI] 60.0-69.9, adult
CPT/HCPCS: 80053; 80061; 82306; 82607; 84100; 84436; 84443; 84480; 86140; 86618; 86800

== ENCOUNTER 2021-11-03 21:55 | Outpatient (REF) | payer OTHER, MEDICAID, SELFPAY ==
[2021-11-05 11:34] LABS: COVID-19 RT-PCR UVMMC Result Negative (Negative)
== END 2021-11-03 21:56 | disposition home or self-care (01) ==
LOC: NCHCN 21:55
PROVIDERS: PCP Nurse Practitioner Family; Visit Provider Nurse Practitioner Family
DX: Z20.822 Contact with and (suspected) exposure to COVID-19 (principal); J06.9 Acute upper respiratory infection, unspecified
CPT/HCPCS: U0003; U0005

== ENCOUNTER 2021-11-24 10:32 | Emergency (ER) | payer OTHER, MEDICAID, SELFPAY ==
[2021-11-24] VITALS (57 sets, daily range): BP systolic 141–152; BP diastolic 77–81; PULSE 79–94; RESP 9–33; TEMP 37.1; O2SAT 82–94
--- NOTE | 2021-11-24 10:30 | RT.EKG_ITS ---
APPROVED REPORT Exam: Resting ECG Reason for Exam: chest discomfort Patient Location: E HR:80 bpm ECG Measurements Heart Rate 80 AXIS WY 144 P 77 QRSd 88 QRS 61 QT 382 T 45 QTc 441 Conclusion Sinus rhythm...normal P axis, V-rate 60- 99
--- NOTE | 2021-11-24 11:08 | ED.GENADUL_ITS ---
Discharge Plan Disposition Patient Disposition: HOME Condition: Improving Discharge Details Clinical Impression: Migraine Primary Care Provider: Lynne Ramírez ED Provider: Jim Brown Home Meds and New Rx's Prescriptions: Continued hydroxyzine HCl 25 mg tablet 25 mg PO QID PRN (Reason: headaches) Qty: 30 1RF Rx Instructions: Take 1-2 tabs every 6 hours as needed for headaches. omeprazole 20 mg capsule,delayed release(DR/EC) 20 mg PO DAILY alprazolam 1 MG tablet 1 mg PO PRN PRN Rx Instructions: SAWPNA MCCAULEY. APPROX 2/WK alprazolam 3 MG tablet extended release 24 hr 3 mg PO BID Rx Instructions: SWAPNA MCCAULEY (DME) Ultra-Light Rollator 1 EACH misc Miscellaneous DAILY Qty: 1 Rx Instructions: Dispense one ultra-light COLLAPSABLE walker Shower chair 1 unit Miscellaneous DAILY Qty: 1 0RF Rx Instructions: Dispense one heavy duty shower chair capable of supporting patient's weight (up to 400 lbs) levothyroxine [Synthroid] 200 mcg tablet 200 mcg PO DAILY Label Comments: TAKE ONE TABLET BY MOUTH EVERY DAY acetaminophen [Acetaminophen Extra Strength] 500 mg tablet 1,500 mg PO BID omega 2-slz-tgh-fish oil [Fish Oil] 1,200 (144-216) mg Capsule 2 cap PO DAILY cholecalciferol (vitamin D3) 1,000 UNIT tablet 3,000 unit PO DAILY Discharge Instructions Instructions: General Headache (ED) Additional Instructions: Home to rest today. Small, frequent sips of fluids to maintain hydration. Rest in a dark and quiet room. May use the provided tramadol 1 tab this afternoon and This evening if needed. Do not use in addition/at the same timeaso your benzodiazepines/alprazolam. Return if you have a fever, rash, stiff neck or any other acute concerns. Follow-up with regular doctor if not improving in 3 days time. Medical Decision Making 56-year-old female presents from home with headache began last night. Similar to previous that includes photophobia and phonophobia. She is nauseated without emesis, felt some chest tightness associated with this. Arrives here afebrile with blood pressure 141/81, alert and interactive. Diagnosis includes sinusitis, migraine type cephalgia, must exclude intracranial mass or hemorrhage. Patient IV access established, screening labs were obtained, she is given fluids and parenteral medications. Her pain improved but did not completely dissipate. She underwent CT scan of the head which does not show any intracranial findings nor evidence of acute sinusitis. Laboratories noted unremarkable CBC and chemistries. Will offer Zofran and 2 tab of tramadol for home. She understands indications to seek reevaluation. Do not feel further work-up is indicated at time. HPI General Mode of arrival: ambulatory . Date/Time Provider Initiated Documentation: 11/24/21 10:43 . Limitations to Documentation: no limitations . Information obtained by: patient . History of Present Illness 56 year old F presents to the emergency department with the chief complaint of Headache and nausea, described as moderate, Quality is described as dull and constant, and is localized to the head. Patient reports no radiation. Patient started experiencing this hour(s) and it has been constant. Rest improves symptom(s), Other factors that worsen symptoms (Lab noises and bright lights) . Patient notes headaches, loss of appetite and other (Nauseated). Patient did receive the following treatments prior to arrival, other (Tylenol 1500 mg) Related Data Home Medications Medication Instructions Recorded Confirmed alprazolam 1 mg tablet 1 mg PO PRN PRN 10/18/12 11/24/21 alprazolam 3 mg tablet,extended 3 mg PO BID 10/18/12 11/24/21 release 24 hr walker (Ultra-Light Rollator misc) ##1 06/03/17 05/13/19 acetaminophen 500 mg tablet 1,500 mg PO BID 08/02/18 11/24/21 (Acetaminophen Extra Strength) hydroxyzine HCl 25 mg tablet 25 mg PO QID PRN headaches #30 tabs 08/02/18 11/24/21 omeprazole 20 mg capsule,delayed 20 mg PO DAILY 01/02/19 11/24/21 release levothyroxine 200 mcg tablet 200 mcg PO DAILY 04/08/21 11/24/21 (Synthroid) cholecalciferol (vitamin D3) 25 3,000 unit PO DAILY 11/24/21 11/24/21 mcg (1,000 unit) tablet omega 8-kji-emu-fish oil 1,200 mg 2 cap PO DAILY 11/24/21 11/24/21 (144 mg-216 mg) capsule (Fish Oil) Previous Rx's Medication Instructions Recorded hydroxyzine HCl 25 mg tablet 25 mg PO QID PRN headaches #30 tabs 08/02/18 Allergies Allergy/AdvReac Type Severity Reaction Status Date / Time NSAIDS (Non-Steroidal AdvReac Severe Other (See Unverified 04/08/21 09:48 Anti-Inflamma Comment) gabapentin AdvReac Mild Sleepiness Unverified 04/08/21 09:48 General Stated Complaint: Chest Pain DANA: 2 Review of Systems Narrative: 8 systems reviewed otherwise negative. 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 [facility] derm. 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 S/p muscle bx & NCS's Myofascial pain (Acute 09/07/16) Morbid obesity (Acute 06/09/12) Binge eating at night Lumbar spondylosis (Chronic 10/10/13) L2-L3, L3-L4; facet hypertrophy; no spondylolisthesis [facility] injections (B/L lumbar medial branch block), 10/26/2013, 02/26/14 IFG (impaired fasting glucose) (Acute 11/12/15) 10/2016 HbA1c 5.5% Hypothyroidism (Acute 12/06/11) s/p subtotal thyroidectomy & radiation s/p thyroid cancer monitor annual thyroglobulin Ab Hyperlipidemia, unspecified (Acute 11/12/15) 10/2016 labwork: ACC/AHA 10-year ASCVD risk = ~7.3% --> no statin indicated at this time History of nicotine dependence (Acute 03/21/14) Quit 02/2014 Generalized anxiety disorder (Acute 02/28/13) Swapna Mccauley boarding specialist Depressive disorder (Acute 02/28/13) Marian Hendricks NP Chronic low back pain (Acute) Lumbar spine x-ray 04/2013: mild-moderate degenerative changes [facility] injections (B/L lumbar medical branch block) 10/2013, 02/2014 Chronic kidney disease, stage 3 (moderate) (Acute 11/01/16) Bilateral knee pain (Acute 03/21/14) X-rays 04/2013: medial osteoarthritis BMI 60.0-69.9, adult (Acute) Spondylosis of lumbar region without myelopathy or radiculopathy (Chronic) Medical History (Updated 11/24/21 @ 14:41 by Jim Brown MD) Depressive disorder Follicular thyroid cancer (~1991) Generalized anxiety disorder Hypothyroidism Morbid obesity Myopathy MONSE (obstructive sleep apnea) Panic disorder Surgical History Abdominal hysterectomy (~1991) Ovaries remain Cholecystectomy (01/10/04) Hernia repair, ventral, 2012, [place] Thyroid (06/26/92) Complete thyroidectomy for follicular thyroid CA Family History Father , COPD at age 72. Substance abuse Alcoholic Diabetes COPD (chronic obstructive pulmonary disease) Smoker Mother Heart disease Myocardial infarction x2 Sister No problems noted. Sister No problems noted. Sister No problems noted. Sister No problems noted. Brother No problems noted. Social History Smoking/Tobacco Use Status: Current every day Tobacco Type: cigarettes Smoking risk assessment performed?: Yes Alcohol Intake: never Drug use: Occasionally Substance use type: marijuana Do you feel safe at home: Yes Do you feel safe in your relationship?: Yes Exam Narrative Exam Narrative: GEN: awake, alert, oriented 3. Pleasant, well groomed, interactive. HEAD: Normocephalic, atraumatic ENT: Mucous membranes moist, oropharynx unremarkable, tympanic membranes clear bilaterally, external ear exam unremarkable EYES: PERRL, EOMI NECK: Full ROM, no DEVYN, no menigismus CHEST/RESP: Nontender, clear to auscultation bilateral, no wheeze/rhonchi/rales CARDIOVASCULAR: RRR, no murmur, rub pop. 2+ Rad pulse bilateral ABDOMEN: Soft, nontender, no mass. +Bowel sounds EXT: Full ROM, no edema, no rash Neuro: Grossly normal neurologic exam, conversant, interactive. Psych: Speech fluent, thoughts congruent, affect normal Course Vital Signs Vital signs: Vital Signs Temperature 37.1 C 11/24/21 10:46 Pulse 82 11/24/21 10:46 Respiratory Rate 14 11/24/21 10:46 Blood Pressure 141/81 H 11/24/21 10:46 Temperature 37.1 C 11/24/21 10:46 Temperature Source Oral 11/24/21 10:46 Pulse 82 11/24/21 10:46 Respiratory Rate 14 11/24/21 10:46 Respiratory Effort Non-Labored 11/24/21 11:04 Respiratory Depth Normal 11/24/21 11:04 Respiratory Pattern Normal 11/24/21 11:04 Blood Pressure 141/81 H 11/24/21 10:46 Blood Pressure Position Supine 11/24/21 10:46 Oxygen Delivery Method Room Air 11/24/21 10:46 Oxygen Flow Rate 0 11/24/21 10:46
[2021-11-24] MEDS: HYDROmorphone 2 MG/ML VIAL 0.5 MG IVP ×2 (11:19→12:24)
[2021-11-24] MEDS: Dexamethasone 10 MG/ML VIAL IVP (11:19)
[2021-11-24] MEDS: Normal Saline 1,000 ML 1000 ML IV (11:20)
[2021-11-24] MEDS: Ondansetron 4 MG/2 ML VIAL 8 MG IVP (11:25)
[2021-11-24 11:32] LABS: Abs Immature Grans 0.03 10^3/uL (0.0-0.06); Absolute Basophil Count 0.04 10^3/uL (0.0-0.2); Absolute Eosinophil Count 0.05 10^3/uL (0.0-0.7); Absolute Lymphocyte Count 0.48 10^3/uL (1.2-3.4); Absolute Monocyte Count 0.72 10^3/uL (0.1-0.8); Absolute Neutrophil Count 3.82 10^3/uL (1.2-6.7); Basophils % 0.8; HCT 42.2 % (36.0-46.0); HGB 14.5 g/dL (11.2-15.7); Immature Grans % 0.6; Lymphocytes % 9.3; MCH 31.5 pg (27.0-33.0); MCHC 34.4 % (32.0-36.0); MCV 92 fL (80-95); MPV 10.3 fL (8.0-11.0); Neutrophils % 74.3; Platelet Count 165 10^3/uL (130-400); RDW 13.3 % (11.7-14.6); RDW-SD 44.8 fL; WBC 5.14 10^3/uL (4.4-10.8)
[2021-11-24 11:51] LABS: ALT 50 U/L (14-59); AST 26 U/L (15-37); Albumin 3.4 g/dL (3.4-5.0); Alkaline Phosphatase 88 U/L (46-116); Anion Gap 8.5 mmol/L (3-11); BUN 11 mg/dL (7-18); Bilirubin, Total 0.3 mg/dL (0.2-1.0); CO2 26.5 mmol/L (21.0-32.0); CREATININE 0.7 mg/dL (0.55-1.02); Calcium 8.7 mg/dL (8.5-10.1); Chloride 101 mmol/L (98-107); Glucose 120 mg/dL (74-106); Magnesium 1.9 mg/dL (1.8-2.4); Potassium 3.7 mmol/L (3.5-5.1); Sodium 136 mmol/L (136-145); Total Protein 6.9 g/dL (6.4-8.2); Troponin I < 50 ng/L (<or=60)
--- NOTE | 2021-11-24 13:00 | DI.CT_ITS ---
Exam(s) CT HEAD SINUS WO EXAM: CT HEAD SINUS WO CLINICAL HISTORY: Frontal headache TECHNIQUE: No IV contrast COMPARISON: CT CT BRAIN NECK CTA from 09/30/2021 FINDINGS: Brain: There are no skull fractures nor fluid in the visualized paranasal sinuses and mastoid air cells. There is no evidence of intracranial hemorrhage, mass effect, or shift of midline structures. No extr a-axial fluid collections. Ventricles are not enlarged or shifted and there is no blood within the ve ntricular system nor within basal cisterns. Symmetrical frontal atrophy is again noted.. PARANASAL SINUSES: All the paranasal sinuses are clear. There is no significant mucosal thickening or fluid levels. In t he maxillary sinuses the ostiomeatal units are patent. Nasal septum is midline. There is a right-sided nasal septal spur, nonocclusive. No evidence of signi ficant richie bullosa. IMPRESSION: 1. No acute intracranial findings nor significant change compared to prior CT scan of 10/01/2021. Bif rontal atrophy is again noted. If clinically indicated follow-up MRI can be performed. 2. Paranasal sinuses are clear. No fluid levels. No mucosal thickening.
[2021-11-24] MEDS: Ondansetron O.D.T. 4 MG TABEF, 3 TABS/BTL PO (15:01)
--- NOTE | 2021-12-01 11:03 | NUR.NOTE ---
Nursing Note: Patient called asking about the bifrontal atrophy noted on CT scann of this visit. Per Dr. Brown he stated it is normal age atrophy. Patient was told this, relieved and was told that she could follow up further with her PCP with any questions or further evaluation.
== END 2021-11-24 15:21 | disposition home or self-care (01) ==
PROVIDERS: Emergency Provider Emergency Medicine; PCP Nurse Practitioner Family
DX: G43.909 Migraine, unspecified, not intractable, without status migrainosus (principal); R07.9 Chest pain, unspecified
CPT/HCPCS: 36415; 80053; 93005; 96361; 96365; 96375; 96376; 99284; 70450; 70486; 83735; 84484; 85025; 93010; J1100; J2405

== ENCOUNTER 2021-12-21 07:01 | Emergency (ER) | payer OTHER, MEDICAID, SELFPAY ==
[2021-12-21 06:57] VITALS: BP 177/84; PULSE 82; RESP 20; TEMP 36.5; O2SAT 96
--- NOTE | 2021-12-21 07:00 | RT.EKG_ITS ---
APPROVED REPORT Exam: Resting ECG Reason for Exam: chest pressure Patient Location: E HR:76 bpm ECG Measurements Heart Rate 76 AXIS MO 137 P 26 QRSd 89 QRS 40 QT 408 T 37 QTc 453 Conclusion Sinus rhythm...normal P axis, V-rate 60- 99 Atrial premature complex...SV complex w/ short R-R interval no STEMI, non-diagnostic EKG I have reviewed and interpreted ECG and agree with software generated interpretation.
[2021-12-21 07:02] VITALS: RESP 20
[2021-12-21] MEDS: LORazepam 1 MG TAB PO ×2 (08:37→08:46)
[2021-12-21 08:41] LABS: Abs Immature Grans 0.04 10^3/uL (0.0-0.06); Absolute Basophil Count 0.05 10^3/uL (0.0-0.2); Absolute Eosinophil Count 0.09 10^3/uL (0.0-0.7); Absolute Lymphocyte Count 2.01 10^3/uL (1.2-3.4); Absolute Neutrophil Count 4.37 10^3/uL (1.2-6.7); Basophils % 0.7; Eosinophils % 1.3; HCT 44.9 % (36.0-46.0); HGB 15.4 g/dL (11.2-15.7); Immature Grans % 0.6; Lymphocytes % 28.5; MCH 31.8 pg (27.0-33.0); MCHC 34.3 % (32.0-36.0); MCV 93 fL (80-95); MPV 9.4 fL (8.0-11.0); Monocytes % 7.1; Neutrophils % 61.8; Platelet Count 164 10^3/uL (130-400); RBC 4.84 10^6/uL (3.93-5.22); RDW 13.8 % (11.7-14.6); RDW-SD 47.2 fL; WBC 7.06 10^3/uL (4.4-10.8)
[2021-12-21] MEDS: LORazepam 20 MG/10 ML VIAL IVP (08:58)
[2021-12-21 09:08] LABS: ALT 52 U/L (14-59); AST 26 U/L (15-37); Albumin 3.4 g/dL (3.4-5.0); Alkaline Phosphatase 83 U/L (46-116); Anion Gap 7.3 mmol/L (3-11); BUN 14 mg/dL (7-18); Bilirubin, Total 0.5 mg/dL (0.2-1.0); CO2 26.7 mmol/L (21.0-32.0); CREATININE 0.8 mg/dL (0.55-1.02); Calcium 9.2 mg/dL (8.5-10.1); Chloride 105 mmol/L (98-107); Glucose 118 mg/dL (74-106); Potassium 4.3 mmol/L (3.5-5.1); Sodium 139 mmol/L (136-145); TSH (W/Ref FT4) 8.81 uIU/mL (0.36-3.74); Total Protein 7.1 g/dL (6.4-8.2); Troponin I < 50 ng/L (<or=60)
[2021-12-21 09:39] VITALS: BP 134/78; PULSE 81; RESP 20; TEMP 36.6; O2SAT 96
--- NOTE | 2021-12-21 10:22 | ED.GENADUL_ITS ---
Discharge Plan Disposition Patient Disposition: HOME Condition: Stable Discharge Details Clinical Impression: Benzodiazepine withdrawal, Chest pain Primary Care Provider: Lynne Ramírez ED Provider: Maribel Gutierrez Home Meds and New Rx's Prescriptions: Continued hydroxyzine HCl 25 mg tablet 25 mg PO QID PRN (Reason: headaches) Qty: 30 1RF Rx Instructions: Take 1-2 tabs every 6 hours as needed for headaches. omeprazole 20 mg capsule,delayed release(DR/EC) 20 mg PO DAILY alprazolam 1 MG tablet 1 mg PO PRN PRN Rx Instructions: SWAPNA VAUGHAN. APPROX 2/WK alprazolam 3 MG tablet extended release 24 hr 3 mg PO BID Rx Instructions: SWAPNA VAUGHAN (DME) Ultra-Light Rollator 1 EACH misc Miscellaneous DAILY Qty: 1 Rx Instructions: Dispense one ultra-light COLLAPSABLE walker Shower chair 1 unit Miscellaneous DAILY Qty: 1 0RF Rx Instructions: Dispense one heavy duty shower chair capable of supporting patient's weight (up to 400 lbs) levothyroxine [Synthroid] 200 mcg tablet 200 mcg PO DAILY Label Comments: TAKE ONE TABLET BY MOUTH EVERY DAY acetaminophen [Acetaminophen Extra Strength] 500 mg tablet 1,500 mg PO BID omega 7-wpz-gvq-fish oil [Fish Oil] 1,200 (144-216) mg Capsule 2 cap PO DAILY cholecalciferol (vitamin D3) 1,000 UNIT tablet 3,000 unit PO DAILY clomipramine 50 mg capsule 200 mg PO 1XD Label Comments: TAKE 4 CAPSULES ORALLY EVERY NIGHT WITH MEALS Discharge Instructions Instructions: Chest Pain (ED), Anxiety (ED) Additional Instructions: Please return immediately to the emergency department if you develop any new or worsening symptoms, if your condition does not improve as expected, or if you become otherwise concerned. It is extremely important that you call soon as possible to make an appointment to be seen in follow-up for this visit by your primary care doctor and cardiology. You will also need to undergo a stress test as we discussed. Referrals: Lucia Nielsen MD [ [facility] STAFF PHYSICIAN] - Lynne Ramírez [Primary Care Provider] - Discharge Data Discharge Date/Time-TO BE ENTERED AT DEPARTURE: 12/21/21 14:53 Medical Decision Making Vanesa Marrero is a 56-year-old woman with a history of sleep apnea, hyperlipidemia, hypothyroidism, chronic kidney disease, generalized anxiety disorder, BMI greater than 50 presenting to the emergency department with chest pressure, anxiety. Patient reports that she typically takes 3 mg of Xanax twice daily. Patient reports that the last time she had this medication was 3 days ago on 12/18. Patient reports that her PCP forgot to call in her prescription, and then when it was called in her pharmacy was closed and PCP did not call in prescription to another pharmacy. Patient reports that she woke up this morning feeling very anxious, with anterior central chest pressure, nonradiating. Patient reports that chest pressure is mild and has been constant since onset. She reports that she has had severe anxiety for years, has been on her current dose of xanax 3mg BID, 1mg daily PRN for years, and has had similar chest pain in the past with anxiety attacks. She states that she has always been able to fill her prescription on time in the past. She denies any other pain, fever, cough, shortness of breath, vomiting, diarrhea, numbness, weakness, rash. On exam Pt is very well and non-toxic appearing. Anxious. Benign cardiopulmonary exam. Concern for benzo withdrawal, other. Doubt acute coronary syndrome. Exam/hx at this time is not c/w acute aortic pathology, PNA, covid, PTX, pulmonary embolism, sepsis. Plan for EKG, IV placement, screening labs, PO ativan, IV ativan after IV placement. Will hold NG at this time pending reassessment after benzo administration. Pt reports improvement in symptoms after ativan. Reports improved chest pressure, some mild chest pressure still present that she states is exactly typical of prior episodes of anxiety. Plan for repeat troponin out of abundance of caution. Care management involved to confirm that Pt's prescription has been called in to the pharmacy at this time. Repeat troponin negative. HEART score low, okay for d/c to home with outpt stress test, outpt f/u. Pt states that she feels ready to go, reiterates that chest pain is typical for her anxiety, is very mild and much better since re ceiving meds. Per care management, 3mg BID xanax is ready for pickup at pharmacy. Pt states she is concerned whether 1mg daily PRN xanax is also ready. I called pharmacy to confirm, pharmacy states that they do not have an order for this prescription. I ordered 1mg xanax daily PRN #5, Pt to call her prescribing physician for further doses. Pt is amenable to plan. I had a discussion with Patient regarding return to emergency department precautions, home care, and importance of outpatient follow-up. Pt verbalizes understanding of the plan and is amenable. Patient discharged to home with clear plan for outpatient follow- up. All questions were answered. Disposition decision was made weighing the risks and benefits of hospitalization versus outpatient treatment, the risk for further decompensation, and the patient's wishes. Medical Records Medical records reviewed: Yes I reviewed the patient's medical records. Lab Data Lab results reviewed: Yes I reviewed the patient's lab results. Labs: 12/21/21 11:30 Urine - Reflex from Ua Urine Culture - Final Escherichia coli Laboratory Tests Range/Units 12/21/21 12/21/21 12/21/21 08:35 08:35 11:01 WBC (4.4-10.8) 10^3/uL 7.06 RBC (3.93-5.22) 10^6/uL 4.84 Hgb (11.2-15.7) g/dL 15.4 Hct (36.0-46.0) % 44.9 MCV (80-95) fL 93 MCH (27.0-33.0) pg 31.8 MCHC (32.0-36.0) % 34.3 RDW (11.7-14.6) % 13.8 Plt Count (130-400) 10^3/uL 164 MPV (8.0-11.0) fL 9.4 Immature Gran % 0.6 Neutrophils % 61.8 Lymphocytes % 28.5 Monocytes % 7.1 Eosinophils % 1.3 Basophils % 0.7 Nucleated RBC % (0.0-0.3) % 0.0 Absolute Neutrophils (1.2-6.7) 10^3/uL 4.37 Absolute Lymphocytes (1.2-3.4) 10^3/uL 2.01 Absolute Monocytes (0.1-0.8) 10^3/uL 0.50 Absolute Eosinophils (0.0-0.7) 10^3/uL 0.09 Absolute Basophils (0.0-0.2) 10^3/uL 0.05 Sodium (136-145) mmol/L 139 Potassium (3.5-5.1) mmol/L 4.3 Chloride (98-107) mmol/L 105 Carbon Dioxide (21.0-32.0) mmol/L 26.7 Anion Gap (3-11) mmol/L 7.3 BUN (7-18) mg/dL 14 Creatinine (0.55-1.02) mg/dL 0.8 Estimated GFR/1.73 m2 (mL/min/1.73m2) >= 60.00 Glucose (74-106) mg/dL 118 H Calcium (8.5-10.1) mg/dL 9.2 Magnesium (1.8-2.4) mg/dL 2.0 Total Bilirubin (0.2-1.0) mg/dL 0.5 AST (15-37) U/L 26 ALT (14-59) U/L 52 Alkaline Phosphatase (46-116) U/L 83 Troponin I (<or=60) ng/L < 50 < 50 Total Protein (6.4-8.2) g/dL 7.1 Albumin (3.4-5.0) g/dL 3.4 TSH (0.36-3.74) uIU/mL 8.81 H Free T4 (0.76-1.46) ng/dL 0.90 Urine Color (Yellow) Urine Clarity (Clear) Urine pH (5-8) Ur Specific [place] (1.005-1.025) Urine Protein (Negative) mg/dL Urine Ketones (Negative) mg/dL Urine Blood (Negative) Urine Nitrite (Negative) Urine Bilirubin (Negative) Urine Urobilinogen (Up TO 0.2) EU/dL Ur Leukocyte Esterase (Negative) Urine RBC (0-2) HPF Urine WBC (0-5) HPF Ur Epithelial Cells (Negative) HPF Urine Crystals (Negative) HPF Urine Bacteria (Negative) HPF Urine Casts (Negative) LPF Urine Mucus (Negative) Ur Culture Indicated? Urine Glucose (Negative) mg/dL Range/Units 12/21/21 11:30 WBC (4.4-10.8) 10^3/uL RBC (3.93-5.22) 10^6/uL Hgb (11.2-15.7) g/dL Hct (36.0-46.0) % MCV (80-95) fL MCH (27.0-33.0) pg MCHC (32.0-36.0) % RDW (11.7-14.6) % Plt Count (130-400) 10^3/uL MPV (8.0-11.0) fL Immature Gran % Neutrophils % Lymphocytes % Monocytes % Eosinophils % Basophils % Nucleated RBC % (0.0-0.3) % Absolute Neutrophils (1.2-6.7) 10^3/uL Absolute Lymphocytes (1.2-3.4) 10^3/uL Absolute Monocytes (0.1-0.8) 10^3/uL Absolute Eosinophils (0.0-0.7) 10^3/uL Absolute Basophils (0.0-0.2) 10^3/uL Sodium (136-145) mmol/L Potassium (3.5-5.1) mmol/L Chloride (98-107) mmol/L Carbon Dioxide (21.0-32.0) mmol/L Anion Gap (3-11) mmol/L BUN (7-18) mg/dL Creatinine (0.55-1.02) mg/dL Estimated GFR/1.73 m2 (mL/min/1.73m2) Glucose (74-106) mg/dL Calcium (8.5-10.1) mg/dL Magnesium (1.8-2.4) mg/dL Total Bilirubin (0.2-1.0) mg/dL AST (15-37) U/L ALT (14-59) U/L Alkaline Phosphatase (46-116) U/L Troponin I (<or=60) ng/L Total Protein (6.4-8.2) g/dL Albumin (3.4-5.0) g/dL TSH (0.36-3.74) uIU/mL Free T4 (0.76-1.46) ng/dL Urine Color (Yellow) Yellow Urine Clarity (Clear) Sl Cloudy Urine pH (5-8) 6.0 Ur Specific [place] (1.005-1.025) 1.010 Urine Protein (Negative) mg/dL Negative Urine Ketones (Negative) mg/dL Negative Urine Blood (Negative) Negative Urine Nitrite (Negative) Positive H Urine Bilirubin (Negative) Negative Urine Urobilinogen (Up TO 0.2) EU/dL 0.2 Ur Leukocyte Esterase (Negative) Negative Urine RBC (0-2) HPF Negative Urine WBC (0-5) HPF 0-2 Ur Epithelial Cells (Negative) HPF Few Urine Crystals (Negative) HPF Negative Urine Bacteria (Negative) HPF Moderate Urine Casts (Negative) LPF Negative Urine Mucus (Negative) Negative Ur Culture Indicated? Yes Urine Glucose (Negative) mg/dL Negative ECG Data Attestation: I personally reviewed and interpreted this ECG (s) as follows: Interpretation: EKG 13: 00 shows sinus rhythm at 84 with PVC, normal axis, no acute ischemic changes, nondiagnostic EKG HPI General Date/Time Provider Initiated Documentation: 12/21/21 07:43 . Limitations to Documentation: no limitations . Information obtained by: patient, RN notes reviewed and old records reviewed . HPI Narrative: Vanesa Marrero is a 56-year-old woman with a history of sleep apnea, hyperlipidemia, hypothyroidism, chronic kidney disease, generalized anxiety disorder, BMI greater than 50 presenting to the emergency department with chest pressure, anxiety. Patient reports that she typically takes 3 mg of Xanax twice daily. Patient reports that the last time she had this medication was 3 days ago on 12/18. Patient reports that her PCP forgot to call in her prescription, and then when it was called in her pharmacy was closed and PCP did not call in prescription to another pharmacy. Patient reports that she woke up this morning feeling very anxious, with anterior central chest pressure, nonradiating. Patient reports that chest pressure is mild and has been constant since onset. She reports that she has had severe anxiety for years, has been on her current dose of xanax 3mg BID, 1mg daily PRN for years, and has had similar chest pain in the past with anxiety attacks. She states that she has always been able to fill her prescription on time in the past. She denies any other pain, fever, cough, shortness of breath, vomiting, diarrhea, numbness, weakness, rash. Related Data Home Medications Medication Instructions Recorded Confirmed alprazolam 1 mg tablet 1 mg PO PRN PRN 10/18/12 12/21/21 alprazolam 3 mg tablet,extended 3 mg PO BID 10/18/12 12/21/21 release 24 hr walker (Ultra-Light Rollator [facility]) ##1 06/03/17 05/13/19 acetaminophen 500 mg tablet 1,500 mg PO BID 08/02/18 12/21/21 (Acetaminophen Extra Strength) hydroxyzine HCl 25 mg tablet 25 mg PO QID PRN headaches #30 tabs 08/02/18 12/21/21 omeprazole 20 mg capsule,delayed 20 mg PO DAILY 01/02/19 12/21/21 release levothyroxine 200 mcg tablet 200 mcg PO DAILY 04/08/21 12/21/21 (Synthroid) cholecalciferol (vitamin D3) 25 3,000 unit PO DAILY 11/24/21 12/21/21 mcg (1,000 unit) tablet omega 2-zmc-pqw-fish oil 1,200 mg 2 cap PO DAILY 11/24/21 12/21/21 (144 mg-216 mg) capsule (Fish Oil) clomipramine 50 mg capsule 200 mg PO 1XD 12/21/21 12/21/21 Previous Rx's Medication Instructions Recorded hydroxyzine HCl 25 mg tablet 25 mg PO QID PRN headaches #30 tabs 08/02/18 Allergies Allergy/AdvReac Type Severity Reaction Status Date / Time NSAIDS (Non-Steroidal AdvReac Severe kidney Unverified 12/21/21 09:14 Anti-Inflamma failure gabapentin AdvReac Mild Sleepiness Unverified 12/21/21 09:01 General Stated Complaint: Anxiety DANA: 3 Review of Systems Narrative: Constitutional: denies fevers Eyes: denies eye pain ENT: denies ear pain, dental pain, sore throat Cardiovascular: denies edema, reports chest pain Respiratory: denies SOB, cough GI: denies abdominal pain, vomiting, diarrhea : denies flank pain MSK: denies back pain, neck pain, arthralgias, myalgias Skin: denies rash Neuro: denies headaches, numbness, weakness Psych: reports severe anxiety, denies SI Eschar area pain Illness PFSH All Active Problems Acute right ankle pain (Acute) Migraine (Chronic) Benzodiazepine withdrawal (Acute) Chest pain (Acute) 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 [facility] 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 S/p muscle bx & NCS's Myofascial pain (Acute 09/07/16) Morbid obesity (Acute 06/09/12) Binge eating at night Lumbar spondylosis (Chronic 10/10/13) L2-L3, L3-L4; facet hypertrophy; no spondylolisthesis [facility] injections (B/L lumbar medial branch block), 10/26/2013, 02/26/14 IFG (impaired fasting glucose) (Acute 11/12/15) 10/2016 HbA1c 5.5% Hypothyroidism (Acute 12/06/11) s/p subtotal thyroidectomy & radiation s/p thyroid cancer monitor annual thyroglobulin Ab Hyperlipidemia, unspecified (Acute 11/12/15) 10/2016 labwork: ACC/AHA 10-year ASCVD risk = ~7.3% --> no statin indicated at this time History of nicotine dependence (Acute 03/21/14) Quit 02/2014 Generalized anxiety disorder (Acute 02/28/13) Swapna Vaughan, retread supervisor Depressive disorder (Acute 02/28/13) Sofia Vaughan, retread supervisor Chronic low back pain (Acute) Lumbar spine x-ray 04/2013: mild-moderate degenerative changes [facility] injections (B/L lumbar medical branch block) 10/2013, 02/2014 Chronic kidney disease, stage 3 (moderate) (Acute 11/01/16) Bilateral knee pain (Acute 03/21/14) X-rays 04/2013: medial osteoarthritis BMI 60.0-69.9, adult (Acute) Spondylosis of lumbar region without myelopathy or radiculopathy (Chronic) Medical History Depressive disorder Follicular thyroid cancer (~1991) Generalized anxiety disorder Hypothyroidism Morbid obesity Myopathy MONSE (obstructive sleep apnea) Panic disorder Surgical History Abdominal hysterectomy (~1991) Ovaries remain Cholecystectomy (01/10/04) Hernia repair, ventral, 2013[place] Thyroid (06/26/92) Complete thyroidectomy for follicular thyroid CA Family History Father , COPD at age 72. Substance abuse Alcoholic Diabetes COPD (chronic obstructive pulmonary disease) Smoker Mother Heart disease Myocardial infarction x2 Sister No problems noted. Sister No problems noted. Sister No problems noted. Sister No problems noted. Brother No problems noted. Social History Smoking/Tobacco Use Status: Current every day Tobacco Type: cigarettes Smoking risk assessment performed?: Yes Alcohol Intake: never Drug use: Occasionally Substance use type: marijuana Do you feel safe at home: Yes Do you feel safe in your relationship?: Yes Exam Narrative Exam Narrative: Constitutional: well and [id number], pleasant, anxious, otherwise conversing normally HENT: head atraumatic/normocephalic/normal inspection, mucous membranes moist Eyes: conjunctiva normal, sclera normal, pupils 3mm b/l Neck: no stridor, normal ROM, trachea midline Chest: normal inspection, no anterior chest wall TTP Resp: normal work of breathing, LCTAB Cardio: normal rate, normal rhythm, no murmur appreciated GI: abdomen soft, non-tender, non-distended Back: normal inspection, no rash Skin: warm, dry, normal color, no rash Neuro: alert, not altered, grossly non-focal, normal tone Ext: no edema, no posterior calf TTP Psych: anxious mood, normal affect, normal behavior Course Vital Signs Vital signs: Vital Signs Temperature 36.5 C 12/21/21 06:57 Pulse 82 12/21/21 06:57 Respiratory Rate 20 12/21/21 06:57 Blood Pressure 177/84 H 12/21/21 06:57 Pulse Oximetry 96 12/21/21 06:57 Temperature 36.6 C 12/21/21 09:39 Temperature Source Temporal Artery Scan 12/21/21 09:39 Pulse 81 12/21/21 09:39 Respiratory Rate 20 12/21/21 09:39 Respiratory Effort 12/21/21 07:02 Respiratory Depth Normal 12/21/21 07:02 Respiratory Pattern Normal 12/21/21 07:02 Blood Pressure 134/78 12/21/21 09:39 Blood Pressure Position Sitting 12/21/21 06:57 Pulse Oximetry 96 12/21/21 09:39 Oxygen Delivery Method Room Air 12/21/21 09:39 Oxygen Flow Rate 0 12/21/21 09:39 Pain Level 7 12/21/21 09:39 Comment 12/21/21 09:39 Lab/Test Results Lab/Test Results: Laboratory Tests Range/Units 12/21/21 12/21/21 08:35 08:35 WBC (4.4-10.8) 10^3/uL 7.06 RBC (3.93-5.22) 10^6/uL 4.84 Hgb (11.2-15.7) g/dL 15.4 Hct (36.0-46.0) % 44.9 MCV (80-95) fL 93 MCH (27.0-33.0) pg 31.8 MCHC (32.0-36.0) % 34.3 RDW (11.7-14.6) % 13.8 Plt Count (130-400) 10^3/uL 164 MPV (8.0-11.0) fL 9.4 Immature Gran % 0.6 Neutrophils % 61.8 Lymphocytes % 28.5 Monocytes % 7.1 Eosinophils % 1.3 Basophils % 0.7 Nucleated RBC % (0.0-0.3) % 0.0 Absolute Neutrophils (1.2-6.7) 10^3/uL 4.37 Absolute Lymphocytes (1.2-3.4) 10^3/uL 2.01 Absolute Monocytes (0.1-0.8) 10^3/uL 0.50 Absolute Eosinophils (0.0-0.7) 10^3/uL 0.09 Absolute Basophils (0.0-0.2) 10^3/uL 0.05 Sodium (136-145) mmol/L 139 Potassium (3.5-5.1) mmol/L 4.3 Chloride (98-107) mmol/L 105 Carbon Dioxide (21.0-32.0) mmol/L 26.7 Anion Gap (3-11) mmol/L 7.3 BUN (7-18) mg/dL 14 Creatinine (0.55-1.02) mg/dL 0.8 Estimated GFR/1.73 m2 (mL/min/1.73m2) >= 60.00 Glucose (74-106) mg/dL 118 H Calcium (8.5-10.1) mg/dL 9.2 Magnesium (1.8-2.4) mg/dL 2.0 Total Bilirubin (0.2-1.0) mg/dL 0.5 AST (15-37) U/L 26 ALT (14-59) U/L 52 Alkaline Phosphatase (46-116) U/L 83 Troponin I (<or=60) ng/L < 50 Total Protein (6.4-8.2) g/dL 7.1 Albumin (3.4-5.0) g/dL 3.4 TSH (0.36-3.74) uIU/mL 8.81 H Free T4 (0.76-1.46) ng/dL 0.90
[2021-12-21 11:24] VITALS: BP 153/91; PULSE 80; TEMP 37.2; O2SAT 94
[2021-12-21 11:29] LABS: Troponin I < 50 ng/L (<or=60)
[2021-12-21 11:34] LABS: Bilirubin Negative (Negative); Blood Negative (Negative); Clarity Sl Cloudy (Clear); Glucose Negative (Negative); Ketones Negative (Negative); Leukocyte Esterase Negative (Negative); Nitrite Positive (Negative); Urobilinogen 0.2 EU/dL (Up TO 0.2)
[2021-12-21 11:40] LABS: Bacteria Moderate HPF (Negative); C & S Indicated? Yes; Casts Negative LPF (Negative); Crystals Negative HPF (Negative); Epithelial Cells Few HPF (Negative); Mucus Negative (Negative); RBC Negative HPF (0-2); WBC 0-2 HPF (0-5)
--- NOTE | 2021-12-21 12:30 | RT.EKG_ITS ---
APPROVED REPORT Exam: Resting ECG Reason for Exam: repeat Patient Location: E HR:84 bpm ECG Measurements Heart Rate 84 AXIS DC 133 P 23 QRSd 89 QRS 40 QT 390 T 30 QTc 458 Conclusion Sinus rhythm...normal P axis, V-rate 60- 99 Ventricular premature complex...V complex w/ short R-R interval Probable lateral infarct, old...Q>35mS, abnormal ST-T, V5-6 I aVL sinus rhythm at 84 with PVC, normal axis, no acute ischemic changes, nondiagnostic EKG
--- NOTE | 2021-12-21 12:59 | CMACTNOTE_ITS ---
- If Service Date Differs Date of service: 12/21/21 Time of Service: 12:59 Care Management Activity Note Vanesa presents in the ED for anxiety. At the request of ED provider, REFUGIO contacts [facility] and speaks with Mar who confirms that [facility], of their [place] office prescribes Vanesa's anxiety medication. Mar reports that a prescription for Xanax 3 mg bid was sent to [facility] in [place] on 12/19/2021. REFUGIO then contacts [facility] pharmacy ([phone]) and speaks with Milad wright who states the Xanax prescription has been filled and is ready for pick-up. REFUGIO then relays this information to Dr. Gutierrez, ED provider.
[2021-12-21] MEDS: ALPRAZolam 0.5 MG TAB 1 MG PO (13:34)
[2021-12-21 14:31] VITALS: BP 159/88; PULSE 76; TEMP 36.5; O2SAT 95
== END 2021-12-21 14:53 | disposition home or self-care (01) ==
PROVIDERS: Emergency Provider Student in an Organized Health Care Education/Training Program; PCP Nurse Practitioner Family
DX: F11.23 Opioid dependence with withdrawal (principal); R07.9 Chest pain, unspecified; R07.89 Other chest pain; E03.9 Hypothyroidism, unspecified; F41.1 Generalized anxiety disorder; N18.30 Chronic kidney disease, stage 3 unspecified; B96.20 Unspecified Escherichia coli [E. coli] as the cause of diseases classified elsewhere
CPT/HCPCS: 36415; 80053; 87077; 93005; 96374; 99284; 81003; 81015; 83735; 84439; 84443; 84484; 85025; 87086; 87186; 93010; 99283; J3490

== ENCOUNTER → 2022-01-14 00:15 | Outpatient (CLI) | payer OTHER, MEDICAID, SELFPAY ==
--- NOTE | 2022-01-14 11:00 | DI.NM_ITS ---
APPROVED REPORT Exam: Pharmacologic Patient Location: Out-Patient Room/Bed: Stress Nurse: Sharron Torres RN Ordering Provider:SUSIE LOPEZ, Contact Number: [phone] BMI: 64.55 Baseline Rhythm: Sinus Rhythm Comment: PACs Indications: Chest discomfort Medical History Medical History: Spondylosis (lumbar). CKD stge 3. HLD. Hypothyroid. Depression. Anxiety. MONSE. Arthri tiis. Low back pain. Current smoker. Cardiac Medications: Omeprazole. Hydroxazine. Alprazolam. Allergies: NSAIDS. Gabapentin. Cardiac Risk Factors: Obesity. HLD. Current smoker. Previous Cardiac Procedures: none Pretest Chest Pain Characteristics: none Exercise History: Sedentary Physical Disabilities: Back, Legs Lung Sounds: Clear to aucultation Heart Sounds: Regular Stress Test Details Test: Pharmacologic stress testing performed using 0.4 mg of regadenoson per 5 mL given IV over 10 s econds. Reason for pharmacologic stress test: physical limitation. Nuclear Acquisition: Rest Tc-99m/Stress Tc-99m 1 day Rest Isotope: Tc-99m Sestamibi. Dose: 14.0 Date: 01/14/2022 Injection Time: 1200 Stress Isotope: Tc-99m Sestamibi. Dose: 47.0 Date: 01/14/2022 Injection Time: 1330 HR Resting HR Supine: 74 bpm Max Heart Rate (APMHR): 162 bpm Target HR (85% APMHR): 137 bpm Max HR Achieved: 85 bpm % of APMHR: 52 Recovery HR: 82 bpm BP Resting BP Supine: 94/60 mmHg Max BP: 98/50 mmHg Recovery BP: 96/54 mmHg ECG Resting ECG: Sinus Rhythm Ectopy: PACs Comment: T-wave inversion in lead II Stress ECG: Sinus Rhythm ST Change: No significant ST segment changes noted Arrhythmia: APC's Recovery ECG: Sinus Rhythm Recovery ST Change: No significant ST segment changes noted Recovery Arrhythmia: none Clinical Rate Pressure Product: 8330 Stress ECG Conclusion 1. Resting electrocardiogram was within normal limits 2. Patient underwent testing using pharmacologic stress with regadenoson 3. Peak heart rate achieved was 52% of predicted for age 4. The electrocardiographic portion of the test was nondiagnostic due to inadequate heart rate 5. See MPI report Stress Test Summary STAGE HR BP SpO2 Symptoms NOTES Supine 74 94/60 1 min post Lexiscan injection 81 98/50 Mild SOB 3 min post Lexiscan injection 83 94/52 SOB subsided. 6 min post Lexiscan injection 82 96/54 MPI Conclusion Myocardial perfusion is normal. There is no evidence of myocardial ischemia or prior infarction EF 48%, normal wall motion Radiologist Interpretation Radiologist agrees with Professor Of Fine Art's Interpretation. Radiologist Interpretation by: Jabari Paredes MD Interpretation Date/Time: 01/14/2022 15:53:30
[2022-01-14] MEDS: Regadenoson 0.4 MG/5 ML SYR IVP (13:59)
== END ==
PROVIDERS: PCP Nurse Practitioner Family; Visit Provider Nurse Practitioner Family
DX: R07.9 Chest pain, unspecified (principal)
CPT/HCPCS: 78452; 93016; 93018; 93017; J2785

== ENCOUNTER 2022-01-18 04:33 | Outpatient (CLI) | payer OTHER, MEDICAID, SELFPAY ==
[2022-01-18 12:43] LABS: TSH 1.04 uIU/mL (0.36-3.74)
== END 2022-01-18 04:34 | disposition home or self-care (01) ==
LOC: LBO 04:33
PROVIDERS: PCP Nurse Practitioner Family; Visit Provider Internal Medicine Endocrinology, Diabetes & Metabolism
DX: E89.0 Postprocedural hypothyroidism (principal)
CPT/HCPCS: 36415; 84443

== ENCOUNTER → 2022-04-22 03:12 | Outpatient (CLI) | payer OTHER, MEDICAID, SELFPAY ==
--- NOTE | 2022-04-22 10:45 | DI.MAMMO_ITS ---
Exam(s) MG MAMMO SCREENING 60 MIN DUR EXAM: MG MAMMO SCREENING 60 MIN DUR CLINICAL HISTORY: SCREENING, Z12.39 TECHNIQUE: Bilateral full field digital CC and MLO mammographic images were obtained with 3D tomosyn thesis and utilizing computer aided detection (CAD). COMPARISON: Available for comparison. FINDINGS: Masses/Architectural Distortion: Multiple well-circumscribed nodules are seen in both breasts. No bates spicious nodules or areas of architectural distortion are identified. Microcalcifications: No suspicious pleomorphic-type are seen. Skin Thickening/Nipple Retraction: None. IMPRESSION: 1. No significant interval change with no specific features of malignancy noted. 2. Unless there is more urgent need, screening mammography is recommended, as per [place] [employer] guidelines. BI-RADS Category 1 - Negative Breast Density - Category B - Scattered areas of fibroglandular density Breast density category C or D implies that the patient has dense breast tissue. Dense breast tissue is very common and is not abnormal but dense breast tissue can make it harder to find cancer on a ma mmogram. Also, dense breast tissue may increase their breast cancer risk. This information about the result of the mammogram report was provided to the patient to raise their awareness. Use this report when you speak with the patient about their risks for breast cancer, which includes their family hist ory. At that time, you may recommend for more screening tests (Ultrasound or MRI) as they might be us eful based on their risk. A negative radiographic report should not delay biopsy if a dominant or clinically suspicious mass is present. Up to ten percent of cancers are not identified on mammography. A negative report may reinforce clinical impression. Adenosis and dense breasts may obscure an underlying neoplasm. False positive reports average 6 to 10%. Patient will receive a letter notifying them of these results.
== END ==
PROVIDERS: PCP Nurse Practitioner Family; Visit Provider Nurse Practitioner Family
DX: Z12.31 Encounter for screening mammogram for malignant neoplasm of breast (principal)
CPT/HCPCS: 77063; 77067

== ENCOUNTER 2022-05-04 18:55 | Outpatient (REF) | payer OTHER, MEDICAID, SELFPAY ==
[2022-05-04 15:59] LABS: TSH (W/Ref FT4) 0.92 uIU/mL (0.36-3.74)
[2022-05-04 16:16] LABS: Hemoglobin A1C 5.6 % (<5.7)
== END 2022-05-04 18:56 | disposition home or self-care (01) ==
LOC: NCHCN 18:55
PROVIDERS: PCP Nurse Practitioner Family; Visit Provider Nurse Practitioner Family
DX: R07.9 Chest pain, unspecified (principal); R19.7 Diarrhea, unspecified; Z85.850 Personal history of malignant neoplasm of thyroid; Z00.00 Encounter for general adult medical examination without abnormal findings; E03.9 Hypothyroidism, unspecified
CPT/HCPCS: 87329; 87505; 83036; 84443

== ENCOUNTER 2022-06-26 11:06 | Emergency (ER) | payer OTHER, MEDICAID, SELFPAY ==
[2022-06-26 11:39] VITALS: BP 133/79; PULSE 74; RESP 20; O2SAT 94
--- NOTE | 2022-06-26 12:36 | W.ED.GENAD ---
Discharge Plan Disposition Patient Disposition: Home Condition: Stable Discharge Details Clinical Impression: Exacerbation of reactive airway disease, URI (upper respiratory infection) Primary Care Provider: Lynne Ramírez ED Provider: Kathie Singleton Home Meds and New Rx's Prescriptions: New ipratropium-albuterol 0.5 mg-3 mg(2.5 mg base)/3 mL solution for nebulization 3 ml inhalation QID PRN (Reason: shortness of breath or wheezing) Qty: 90 0RF Continued hydroxyzine HCl 25 mg tablet 25 mg PO QID PRN (Reason: headaches) Qty: 30 1RF Rx Instructions: Take 1-2 tabs every 6 hours as needed for headaches. omeprazole 20 mg capsule,delayed release(DR/EC) 20 mg PO DAILY alprazolam 1 MG tablet 1 mg PO PRN PRN Rx Instructions: SWAPNA VAUGHAN. APPROX 2/WK alprazolam 3 MG tablet extended release 24 hr 3 mg PO BID Rx Instructions: SWAPNA VAUGHAN (DME) Ultra-Light Rollator 1 EACH misc Miscellaneous DAILY Qty: 1 Rx Instructions: Dispense one ultra-light COLLAPSABLE walker Shower chair 1 unit Miscellaneous DAILY Qty: 1 0RF Rx Instructions: Dispense one heavy duty shower chair capable of supporting patient's weight (up to 400 lbs) levothyroxine [Synthroid] 200 mcg tablet 200 mcg PO DAILY Label Comments: TAKE ONE TABLET BY MOUTH EVERY DAY acetaminophen [Acetaminophen Extra Strength] 500 mg tablet 1,500 mg PO BID omega 3-igb-qvq-fish oil [Fish Oil] 1,200 (144-216) mg Capsule 2 cap PO DAILY cholecalciferol (vitamin D3) 1,000 UNIT tablet 3,000 unit PO DAILY clomipramine 50 mg capsule 200 mg PO 1XD Label Comments: TAKE 4 CAPSULES ORALLY EVERY NIGHT WITH MEALS Discharge Instructions Instructions: Upper Respiratory Infection (ED), Reactive Airways Disease (ED) Additional Instructions: As we discussed, I am concerned that you may have initially had the flu or other respiratory virus. However, it seems to have caused exacerbation of your underlying reactive airway disease and cause you to be wheezy and tight. Please take the steroids as prescribed, this will help with the inflammation. Please use the nebulizer to help with symptomatic management. This is the antibiotics in the event that he have underlying infectious etiology. Encourage hydration. May use Tylenol as needed for discomfort. Please call your primary care provider on Tuesday and schedule follow-up appointment at the end of the week for reevaluation. If you develop increased shortness of breath, difficulty breathing, chest pain or other new/worsening symptoms please seek care urgently once again. Referrals: Lynne Ramríez [Primary Care Provider] - Discharge Data Discharge Date/Time-TO BE ENTERED AT DEPARTURE: 06/26/22 14:04 Medical Decision Making Patient is a pleasant 57-year-old female with past medical history significant for morbid obesity, CKD, MONSE, active smoker, with chief complaint of cough, congestion, shortness of breath. She reports that symptoms began Heather fairly abruptly 6 days ago with significant congestion and cough. At that time, was bringing up clear sputum. However, she reports that the ENT symptoms and the sputum production have significantly improved. However, while that aspect has improved she has begun to feel more tight. States that she did have asthma when she was a child but has not had issues with this in several years although she does have an albuterol inhaler at home. She denies any chest pain. No pleuritic pain. No recent travel. Denies any lower extremity edema or calf tenderness. No past medical history of DVT. On exam, patient appears nontoxic. She does not appear to have any labored breathing. Hemodynamically stable. On auscultation, patient has diffuse expiratory wheezing consistent with reactive airway. She does smoke and has smoked for several years. While she is not been formally diagnosed with COPD, I do have high suspicion for this. Patient would likely benefit from PFT after she is over this acute illness. She did receive her flu and COVID vaccines. Based on the progression, I am highly suspicious that she may have initially had influenza and is now having a COPD exacerbation. We will trial a DuoNeb and begin the patient on prednisone. At this time, I do not see evidence to suggest ACS or PE. She not having any fevers, chills or sputum production to suggest a impending pneumonia. However, in the setting of possible COPD I do feel that treatment with antibiotics would be prudent. We will continue with prednisone and antibiotics. I discussed this with the patient. Advised that she follow-up closely with primary care and I did encourage smoking cessation which patient is actively working on. After nebulizer treatment, patient feeling signficantly improved. Her wheezing is also notably improved. She feels safe for d/c to home now. Her daughter has nebulizer which she can use now. I did reach out to her pharmacy but am unable to get her established with her own equipment at this time. We will send her with her own tubing and reservoir. Will coninute with duo neb, steroids. Will also begin on abx as she does have increased risk of infection. Encouragec lose f/u with PCP. Strict return precautions discussed. All of her quesitons and concerns were addressed, she is in agreement with this plan. HPI General Date/Time Provider Initiated Documentation: 06/26/22 11:49. Limitations to Documentation: no limitations. Information obtained by: patient, RN notes reviewed and old records reviewed. History of Present Illness 57 year old F presents to the emergency department with the chief complaint of wheezing, feels tight, cough, described as moderate and similar to prior episodes, with intensity rated at 1 (patient denies any pain). Quality is described as other (SOB), and is localized to the chest. Patient reports no radiation. Patient started experiencing this day(s) and it has been constant. No relieving factors improve symptom(s), No exacerbating factors reported . Patient notes cough, malaise and shortness of breath (wheezing); denies chest pain, fever/chills, nausea/vomiting and rash. Patient did receive the following treatments prior to arrival, none Related Data Home Medications Medication Instructions Recorded Confirmed alprazolam 1 mg tablet 1 mg PO PRN PRN 10/18/12 12/21/21 alprazolam 3 mg tablet,extended 3 mg PO BID 10/18/12 12/21/21 release 24 hr walker (Ultra-Light Rollator misc) ##1 06/03/17 05/13/19 acetaminophen 500 mg tablet 1,500 mg PO BID 08/02/18 12/21/21 (Acetaminophen Extra Strength) hydroxyzine HCl 25 mg tablet 25 mg PO QID PRN headaches #30 tabs 08/02/18 12/21/21 omeprazole 20 mg capsule,delayed 20 mg PO DAILY 01/02/19 12/21/21 release levothyroxine 200 mcg tablet 200 mcg PO DAILY 04/08/21 12/21/21 (Synthroid) cholecalciferol (vitamin D3) 25 3,000 unit PO DAILY 11/24/21 12/21/21 mcg (1,000 unit) tablet omega 0-osb-ucb-fish oil 1,200 mg 2 cap PO DAILY 11/24/21 12/21/21 (144 mg-216 mg) capsule (Fish Oil) clomipramine 50 mg capsule 200 mg PO 1XD 12/21/21 12/21/21 ipratropium 0.5 mg-albuterol 3 mg 3 ml inhalation QID PRN shortness 06/26/22 (2.5 mg base)/3 mL nebulization of breath or wheezing #90 mL soln Previous Rx's Medication Instructions Recorded hydroxyzine HCl 25 mg tablet 25 mg PO QID PRN headaches #30 tabs 08/02/18 ipratropium 0.5 mg-albuterol 3 mg 3 ml inhalation QID PRN shortness 06/26/22 (2.5 mg base)/3 mL nebulization of breath or wheezing #90 mL soln Allergies Allergy/AdvReac Type Severity Reaction Status Date / Time NSAIDS (Non-Steroidal AdvReac Severe kidney Unverified 12/21/21 09:14 Anti-Inflamma failure gabapentin AdvReac Mild Sleepiness Unverified 12/21/21 09:01 General Stated Complaint: RespSymp DANA: 3 Review of Systems Constitutional Constitutional: Reports as per HPI, Denies chills, Denies fever(s), Denies headache(s) and Denies poor appetite Eyes Eyes: Denies change in vision ENT Ears, Nose, Mouth, and Throat: Denies dizziness and Denies headache(s) Cardiovascular Cardiovascular: Reports as per HPI Respiratory Respiratory: Reports as per HPI, Denies chest congestion, Denies cough, Denies pain on inspiration and Denies pain with cough Gastrointestinal Gastrointestinal: Reports as per HPI, Denies abdominal pain, Denies diarrhea, Denies nausea and Denies vomiting Musculoskeletal Musculoskeletal: Reports as per HPI and Denies back pain Integumentary/Breasts Skin/Breast: Reports as per HPI and Denies rash Neurologic Neurologic: Reports as per HPI, Denies dizziness and Denies headache(s) PFSH All Active Problems (Updated 06/26/22 @ 13:49 by MAKENNA King) Acute right ankle pain (Acute) Exacerbation of reactive airway disease (Acute) URI (upper respiratory infection) (Acute) 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 [facility] 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 S/p muscle bx & NCS's Myofascial pain (Acute 09/07/16) Morbid obesity (Acute 06/09/12) Binge eating at night Lumbar spondylosis (Chronic 10/10/13) L2-L3, L3-L4; facet hypertrophy; no spondylolisthesis [facility] injections (B/L lumbar medial branch block), 10/26/2013, 02/26/14 IFG (impaired fasting glucose) (Acute 11/12/15) 10/2016 HbA1c 5.5% Hypothyroidism (Acute 12/06/11) s/p subtotal thyroidectomy & radiation s/p thyroid cancer monitor annual thyroglobulin Ab Hyperlipidemia, unspecified (Acute 11/12/15) 10/2016 labwork: ACC/AHA 10-year ASCVD risk = ~7.3% --> no statin indicated at this time History of nicotine dependence (Acute 03/21/14) Quit 02/2014 Generalized anxiety disorder (Acute 02/28/13) Marian Dang NP Depressive disorder (Acute 02/28/13) Marian Hendricks NP Chronic low back pain (Acute) Lumbar spine x-ray 04/2013: mild-moderate degenerative changes [facility] injections (B/L lumbar medical branch block) 10/2013, 02/2014 Chronic kidney disease, stage 3 (moderate) (Acute 11/01/16) Bilateral knee pain (Acute 03/21/14) X-rays 04/2013: medial osteoarthritis BMI 60.0-69.9, adult (Acute) Spondylosis of lumbar region without myelopathy or radiculopathy (Chronic) Medical History (Updated 06/26/22 @ 13:49 by MAKENNA King) Depressive disorder Follicular thyroid cancer (~1991) Generalized anxiety disorder Hypothyroidism Morbid obesity Myopathy MONSE (obstructive sleep apnea) Panic disorder Surgical History Abdominal hysterectomy (~1991) Ovaries remain Cholecystectomy (01/10/04) Hernia repair, ventral, 2013, [place] Thyroid (06/26/92) Complete thyroidectomy for follicular thyroid CA Family History Father , COPD at age 72. Substance abuse Alcoholic Diabetes COPD (chronic obstructive pulmonary disease) Smoker Mother Heart disease Myocardial infarction x2 Sister No problems noted. Sister No problems noted. Sister No problems noted. Sister No problems noted. Brother No problems noted. Social History Smoking/Tobacco Use Status: Current every day Tobacco Type: cigarettes Smoking risk assessment performed?: Yes Alcohol Intake: never Drug use: Occasionally Substance use type: marijuana Do you feel safe at home: Yes Do you feel safe in your relationship?: Yes Exam Const General: cooperative, healthy appearing, comfortable, no acute distress and well developed Nutritional Appearance: well nourished and obese Orientation: alert, awake and oriented x3 HENMT Head: normal to inspection Ears: hearing grossly normal bilaterally, external ears normal and TM's normal bilaterally Face and sinus: normal facial exam Mouth: oral mucosae normal and moist mucous membranes Throat: posterior oropharynx normal, tonsils normal and uvula midline Chest Chest: normal inspection of the chest, normal palpation of entire chest wall and no crepitus Resp Effort & Inspection: normal respiratory effort, able to speak in complete sentences and no respiratory distress Auscultation: no rales, no rhonchi and wheezes expiratory wheezes and scattered wheezes Cardio Rate: regular rate Rhythm: regular rhythm Heart Sounds: S1 normal and S2 normal GI Inspection: normal to inspection, no edema and non-distended Palpation: soft, no hepatosplenomegaly, not firm, no guarding, not rigid and nontender Auscultation: normal bowel sounds Back/Spine/Pelvis Back: no CVA tenderness Thoracic/Lumbar Spine: thoracic and lumbar spine normal to inspection Skin General skin exam: no rashes or lesions noted Trauma: no lacerations or abrasions Neuro General: patient alert, patient awake and patient oriented x3 Cognition: normal cognition Speech: speech normal Gait: normal gait Extrem General: normal to inspection, capillary refill normal, no pedal edema, no calf tenderness and abnormal gait (wheelchair bound at baseline) Psych Appearance: grossly normal and well kempt Mental Status: mental status grossly normal Speech and Movement: speech and movement normal Course Vital Signs Vital signs: Vital Signs Pulse 74 06/26/22 11:39 Respiratory Rate 20 06/26/22 11:39 Blood Pressure 133/79 06/26/22 11:39 Pulse Oximetry 94 06/26/22 11:39 Pulse 74 06/26/22 11:39 Respiratory Rate 20 06/26/22 11:39 Blood Pressure 133/79 06/26/22 11:39 Blood Pressure Position Sitting 06/26/22 11:39 Pulse Oximetry 94 06/26/22 11:39 Oxygen Delivery Method Room Air 06/26/22 11:39 Oxygen Flow Rate 0 06/26/22 11:39 Pain Level 0 06/26/22 11:39
[2022-06-26] MEDS: predniSONE 20 MG TAB 60 MG PO (13:20)
[2022-06-26] MEDS: Albuterol/Ipratropium 3 ML UPD VIAL UPD (13:21)
[2022-06-26 13:53] VITALS: BP 131/71; PULSE 78; TEMP 37; O2SAT 92
== END 2022-06-26 14:04 | disposition home or self-care (01) ==
PROVIDERS: Emergency Provider Physician Assistant; PCP Nurse Practitioner Family
DX: J45.901 Unspecified asthma with (acute) exacerbation (principal); J06.9 Acute upper respiratory infection, unspecified; F17.210 Nicotine dependence, cigarettes, uncomplicated
CPT/HCPCS: 94640; 99283; J7512; J7620

== ENCOUNTER 2022-07-29 04:30 | Outpatient (CLI) | payer OTHER, MEDICAID, SELFPAY ==
[2022-07-29] MEDS: Albuterol HFA 18 GM 200 PUFF INH IH (11:13)
[2022-07-29] MEDS: Inhaler, Assist Device 1 EACH MC (11:14)
--- NOTE | 2022-07-30 14:27 | PFT_ITS ---
Date of service: 07/29/22 Time of Service: 10:02 Pulmonary Function Test Result Requesting Provider Lynne Ramírez Indications: Dyspnea Interpretation Spirometry: There is no airflow limitation. There is no significant bronchodilator response. The FVC is low. Lung Volumes: Normal lung volumes Diffusion Capacity: Normal diffusion Airway Pressure: Normal airways resistance. Impression Normal pulmonary function testing. The low FVC is likely due to pseudo- restriction from an elevated BMI. Clinical Correlation therefore is recommended.
--- NOTE | 2022-07-30 14:29 | W.PFT ---
Date of service: 07/29/22 Time of Service: 08:00 Pulmonary Function Test Result Requesting Provider Farzaneh Indications: Sarcoidosis Interpretation Spirometry: There is no airflow limitation. There is no significant bronchodilator response. Lung Volumes: Normal lung volumes Diffusion Capacity: The corrected diffusion is slightly reduced. Airway Pressure: Normal airways resistance. Impression Isolated reduced diffusion. In the correct clinical context this could be related to pulmonary vascular disease or early interstitial lung disease. Note: Compared to 02/14/12, the FEV1 and FVC are unchanged, lung volumes are improved, but the DLCO is reduced. Clinical Correlation therefore is recommended.
== END 2022-07-29 04:31 | disposition home or self-care (01) ==
LOC: RT 04:30
PROVIDERS: PCP Nurse Practitioner Family; Visit Provider Nurse Practitioner Family
DX: R06.09 Other forms of dyspnea (principal); F17.210 Nicotine dependence, cigarettes, uncomplicated
CPT/HCPCS: 94060; 94726; 94729

== ENCOUNTER 2022-11-03 12:13 | Outpatient (REF) | payer OTHER, MEDICAID, SELFPAY ==
[2022-11-03 15:05] LABS: TSH 3.28 uIU/mL (0.36-3.74)
== END 2022-11-03 12:14 | disposition home or self-care (01) ==
LOC: NCHCN 12:13
PROVIDERS: PCP Nurse Practitioner Family; Visit Provider Physician Assistant
DX: Z85.850 Personal history of malignant neoplasm of thyroid (principal)
CPT/HCPCS: 84443

== ENCOUNTER 2022-11-12 00:24 | Outpatient (CLI) | payer OTHER, MEDICAID, SELFPAY ==
--- OUTSIDE RECORDS SUMMARY | 2022-11-12 00:26 | XMS_ITS | Continuity of Care Document ---
Author Name Unknown Organization [facility] Address [address] [place] [id number] Care Team Providers Care Quality Control Expert Name Role Phone SUSIE LOPEZ APRN Primary Care Physician Encounter [facility] NBR [id number] Date(s): 10/01/22 - 10/01/[address] [phone] Encounter Diagnosis Pleuritic chest pain(Discharge Diagnosis) - 10/01/22 Discharge Disposition: Home or Self Care Attending Physician: Jim Elliott MD Admitting Physician: Jim Elliott MD Allergies, Adverse Reactions, Alerts Substance Reaction Severity Status gabapentin Unknown Active NSAIDs Unknown Active Functional Status 10/01/22 Other exposure to Infectious Disease Non e Medications Advair Diskus 250 mcg-50 mcg inhalation powder INHALE 2 PUFFS BY MOUTH TWO TIMES A DAY DIRECTED Start Date: 10/01/22 Status: Ordered Albuterol (Eqv-Proventil HFA) 90 mcg/inh inhalation aerosol INHALE 2 PUFFS EVERY 4 TO 6 HOURS NEEDED FOR SHORTNESS OF BREATH COUGH WHEEZING Start Date: 10/01/22 Status: Ordered ALPRAZolam 3 mg oral tablet, extended release TAKE 1 TABLET BY MOUTH TWICE DAILY Start Date: 10/01/22 Status: Ordered clomiPRAMINE 50 mg oral capsule TAKE FOUR CAPSULES BY MOUTH AT BEDTIME WITH DINNER Start Date: 10/01/22 Status: Ordered omeprazole 20 mg oral delayed release capsule TAKE ONE CAPSULE BY MOUTH EVERY DAY Start Date: 10/01/22 Status: Ordered Synthroid 200 mcg (0.2 mg) oral tablet TAKE ONE TABLET BY MOUTH ONCE DAILY Start Date: 10/01/22 Status: Ordered Vitamin D3 1000 intl units oral capsule TAKE THREE CAPSULES BY MOUTH EVERY DAY Start Date: 10/01/22 Status: Ordered Mental Status 10/01/22 Eye Opening Response Kenyatta Spontaneous ly Best Verbal Response Kenyatta Oriented Best Motor Response Kenyatta Obeys comman ds [place] Coma Score 15 Results Radiology Reports * Exam Date Time Procedure Performing Provider Status 10/01/22 6:[address] Angio Chest Lavern Light; Auth ( Verified) Notes: (CT Angio Chest) Reason For Exam: SOB ? PE CT Angio Chest PROCEDURE INFORMATION: Exam: CTA Chest With Contrast Exam date and time: 10/01/2022 5:55 PM Age: 57 years old Clinical indication: Shortness of breath; Additional info: SOB ? pe TECHNIQUE: Imaging protocol: Computed tomographic angiography of the chest with contrast. 3D rendering (Not supervised by radiologist): MIP and/or 3D reconstructed images were created by the technologist. Radiation optimization: All CT scans at this facility use at least one of these dose optimization techniques: automated exposure control; mA and/or kV adjustment per patient size (includes targeted exams where dose is matched to clinical indication); or iterative reconstruction. Contrast material: [id number]; Contrast volume: 100 ml; Contrast route: INTRAVENOUS (IV); REPORTING DATA: Count of CT and Cardiac NM exams in prior 12 months: This patient has received 0 known CTs and 0 known cardiac nuclear medicine studies in the 12 months prior to the current study. COMPARISON: CT ANGIO NECK 08/11/2018 10:32 AM FINDINGS: Pulmonary arteries: Timing of contrast material limits examination. No pulmonary embolism in the main, left, right pulmonary arteries. The more peripheral first and second order branches cannot be adequately assessed. Aorta: Unremarkable. No aortic aneurysm. No aortic dissection. Lungs: Unremarkable. No consolidation. No masses. Pleural spaces: Unremarkable. No pneumothorax. No pleural effusion. Heart: Unremarkable. No cardiomegaly. No pericardial effusion. Lymph nodes: Unremarkable. No enlarged lymph nodes. Bones/joints: Unremarkable. No acute fracture. Soft tissues: Unremarkable. IMPRESSION: No central pulmonary embolism. Examination is significantly technically limited. THIS DOCUMENT HAS BEEN ELECTRONICALLY SIGNED BY BRYCE KNIGHT MD on 10/01/2022 06:21 PM Final Signed by: Bryce Knight MD Signed (Electronic Signature): 10/01/2022 6:21 pm Vital Signs Most recent to oldest [Reference Range]: 1 Temperature Temporal Artery [36-38 Deg C ] 36.1 Deg C (10/01/22 4:36 PM) Peripheral Pulse Rate [60-100 bpm] 84 bp m (10/01/22 4:36 PM) Respiratory Rate [12-24 br/min] 16 br/mi n (10/01/22 4:36 PM) Blood Pressure [90-140/60-90 mmHg] 165/9 6mmHg *HI* (10/01/22 4:36 PM) Weight Dosing 190.51 kg (10/01/22 5:00 PM) Weight Estimated 190.51 kg (10/01/22 4:36 PM) Height/Length Dosing 165.000 cm (10/01/22 5:00 PM) Height/Length Estimated 165.000 cm (10/01/22 4:36 PM) Social History Social History Type Response Tobacco Current everyday tob acco user Tobacco Use:. 6 cigarettes per day per day. Sex Hospital Discharge Instructions Patient Education 10/01/2022 17:44:17 Chest Wall Pain Chest Wall Pain Chest wall pain is pain in or around the bones and muscles of your chest. Sometimes, an injury causes this pain. Excessive coughing or overuse of arm and chest muscles may also cause chest wall pain.Sometimes, the cause may not be known. This pain may take several weeks or longer to get better. Follow these instructions at home: Managing pain, stiffness, and swelling ??? If directed, put ice on the painful area: ??? Put ice in a plastic bag. ??? Place a towel between your skin and the bag. ??? Leave the ice on for 20 minutes, 2???3 times per day. Activity ??? Rest as told by your health care provider. ??? Avoid activities that cause pain. These include any activities that use your chest muscles or your abdominal and side muscles to lift heavy items. Ask your health care provider what activities are safe for you. General instructions ??? Take hyxg-pif-rxrezvy and prescription medicines only as told by your health care provider. ??? Do not use any products that contain nicotine or tobacco, such as cigarettes, e-cigarettes, andchewing tobacco. These can delay healing after injury. If you need help quitting, ask your health care provider. ??? Keep all follow-up visits as told by your health care provider. This is important. Contact a health care provider if: ??? You have a fever. ??? Your chest pain becomes worse. ??? You have new symptoms. Get help right away if: ??? You have nausea or vomiting. ??? You feel sweaty or light-headed. ??? You have a cough with mucus from your lungs (sputum) or you cough up blood. ??? You develop shortness of breath. These symptoms may represent a serious problem that is an emergency. Do not wait to see if the symptoms will go away. Get medical help right away. Call your local emergency services (911 in the [place] Do not drive yourself to the hospital. Summary ??? Chest wall pain is pain in or around the bones and muscles of your chest. ??? Depending on the cause, it may be treated with ice, rest, medicines, and avoiding activities that cause pain. ??? Contact a health care provider if you have a fever, worsening chest pain, or new symptoms. ??? Get help right away if you feel light-headed or you develop shortness of breath. These symptomsmay be an emergency. This information is not intended to replace advice given to you by your health care provider. Make sure you discuss any questions you have with your health care provider. Document Revised: 08/28/2021 Document Reviewed: 08/28/2021 [employer] Patient Education ?? 2021 [employer]. Follow Up Care 10/01/2022 16:36:31 With:Follow-up with your primary care Address: When:1 week Comments:Follow-up with your primary care as needed, they will be able to reevaluate if necessaryReturn to ED if concerns Physician Emergency department Note * MAKENNA Jo: PERFORM Event Display: ED Note Physician Authored Date: [id number] LEXUS COOPER :1965 Age:57 years Sex:Female Visit Date:10/01/2022 Primary Care Physician: SUSIE LOPEZ APRN Basic Information Time Seen: MAKENNA Jo / 10/01/2022 16:45 Chief Complaint Pt reports R sided positional rib pain with pleurisy that started Tuesday. History Of Present Illness: Patient a 57-year-old female who presents emergency department who presents emergency department having??had??right-sided??rib discomfort??that started on Tuesday. ??She notes that it is worse with deep inhalation??she does not find that she is short of breath with ambulation however??she is short of breath at baseline. At this time??she is taking Tylenol only for her discomfort which states??that has not helped??significantly She presents that she began to google??this type of pain and felt as though she needed to be evaluated for PE. Review of Systems: See HPI Physical Exam Vitals & Measurements T:??36.1?C ??(Temporal Artery)?? HR:??84??(Peripheral)?? RR:??16?? BP:??165/96?? SpO2:??96%?? HT:??165.000??cm?? WT:??190.51??kg??(Estimated)?? O2 Therapy:??Room air?? Patient is an alert oriented obese female nontoxic in appearance Neck is supple nontender EOM intact, PERRL, sclera anicteric Clear to auscultation however distant breath sounds are appreciated Regular rate and rhythm no murmurs There is no??tenderness elicited with palpation over the torso Skin is warm and dry without erythema or ecchymosis Medical Decision Making: CT PE reveals no acute findings Patient??at this time does not request or we need any interventions Procedure No Qualifying Data Assessment/Plan 1.??Pleuritic chest pain??R07.81 -Discussed with the patient regards to the fact that she has had??a cath in the past but is told that she can utilize??nonsteroidals in the short-term. ??I have discussed with her once a day??and then Tylenol throughout. ??She will follow-up with her primary care to discuss any??need for further evaluation.?? This should be a self-limiting process and is most likely viral in nature. She agrees with discharge and understands??all aspects of today's visit. Orders: Discharge Patient, 10/01/22 18:43:00 EDT Patient Education Chest Wall Pain Follow Up With When Contact Information Follow-up with your primary care Within 1 week Additional Instructions: Follow-up with your primary care as needed, they will be able to reevaluate if necessary Return to ED if concerns Medication Reconciliation Unchanged albuterol (Albuterol (Eqv-Proventil HFA) 90 mcg/inh inhalation aerosol)INHALE 2 PUFFS EVERY 4 TO 6 HOURS NEEDED FOR SHORTNESS OF BREATH COUGH WHEEZING. ?? ALPRAZolam (ALPRAZolam 3 mg oral tablet, extended release)TAKE 1 TABLET BY MOUTH TWICE DAILY. ?? cholecalciferol (Vitamin D3 1000 intl units oral capsule)TAKE THREE CAPSULES BY MOUTH EVERY DAY. ?? clomiPRAMINE (clomiPRAMINE 50 mg oral capsule)TAKE FOUR CAPSULES BY MOUTH AT BEDTIME WITH DINNER. ?? fluticasone-salmeterol (Advair Diskus 250 mcg-50 mcg inhalation powder)INHALE 2 PUFFS BY MOUTH TWO TIMES A DAY DIRECTED. ?? levothyroxine (Synthroid 200 mcg (0.2 mg) oral tablet)TAKE ONE TABLET BY MOUTH ONCE DAILY. ?? omeprazole (omeprazole 20 mg oral delayed release capsule)TAKE ONE CAPSULE BY MOUTH EVERY DAY. Problem List/Past Medical History Ongoing No qualifying data Historical No qualifying data Allergies NSAIDs gabapentin Social History Electronic Cigarette/Vaping Electronic Cigarette Use: Never. Tobacco Current everyday tobacco user Tobacco Use:. 6 cigarettes per day per day. Diagnostic Results CT Angio Chest 10/01/2022 18:[address] Angio Chest ?? 10/01/22 17:55:36 PROCEDURE INFORMATION: Exam: CTA Chest With Contrast Exam date and time: 10/01/2022 5:55 PM Age: 57 years old Clinical indication: Shortness of breath; Additional info: SOB ? pe ?? TECHNIQUE: Imaging protocol: Computed tomographic angiography of the chest with contrast. 3D rendering (Not supervised by radiologist): MIP and/or 3D reconstructed images were created by the technologist. Radiation optimization: All CT scans at this facility use at least one of these dose optimization techniques: automated exposure control; mA and/or kV adjustment per patient size (includes targeted exams where dose is matched to clinical indication); or iterative reconstruction. Contrast material: [id number]; Contrast volume: 100 ml; Contrast route: INTRAVENOUS (IV); ?? REPORTING DATA: Count of CT and Cardiac NM exams in prior 12 months: This patient has received 0 known CTs and 0 known cardiac nuclear medicine studies in the 12 months prior to the current study. ?? COMPARISON: CT ANGIO NECK 08/11/2018 10:32 AM ?? FINDINGS: Pulmonary arteries: Timing of contrast material limits examination. No pulmonary embolism in the main, left, right pulmonary arteries. The more peripheral first and second order branches cannot be adequately assessed. Aorta: Unremarkable. No aortic aneurysm. No aortic dissection. ?? Lungs: Unremarkable. No consolidation. No masses. Pleural spaces: Unremarkable. No pneumothorax. No pleural effusion. Heart: Unremarkable. No cardiomegaly. No pericardial effusion. Lymph nodes: Unremarkable. No enlarged lymph nodes. ?? Bones/joints: Unremarkable. No acute fracture. Soft tissues: Unremarkable. ?? IMPRESSION: No central pulmonary embolism. Examination is significantly technically limited. ? THIS DOCUMENT HAS BEEN ELECTRONICALLY SIGNED BY BRYCE KNIGHT MD on 10/01/2022 06:21 PM ?? Signed By: Bryce Knight MD Electronically Signed on 10/01/22 08:33 PM MAKENNA Jo Emergency department Discharge instructions * MAKENNA Jo: PERFORM Event Display: ED Discharge Information Authored Date: [id number] KENNETH LEXUS F :1965 Age:57 years Sex:Female Visit Date:10/01/2022 Primary Care Physician: SUSIE LOPEZ APRN Discharge Instructions We would like to thank you for allowing us to assist you with your healthcare needs. The following includes patient education materials and information regarding your injury/illness. Diagnosis from Today's Visit Pleuritic chest pain Discharge Vitals Temperature??(Temporal Artery) 97.0 ??F (36.1 ??C) Heart Rate??(Peripheral) 84 Respiratory Rate?? 16 Blood Pressure?? 165/96?? Height?? 64.96 in (165.000 cm) Weight??(Estimated) 420.07 lb (190.51 kg) Allergies NSAIDs gabapentin What to Do Next Instructions from Your Care Team Continue Tylenol as you have been Follow??PCP guidelines for NSAID usage. ??I believe that several days of usage is??warranted. ??I would utilize??Aleve??once in the morning and then Tylenol throughout the day. ??If you have any question concerns or new symptoms follow- up with your primary care. This should be self-limiting You Need to Schedule the Following Appointments Follow Up with??Follow-up with your primary care When:??Within 1 week Why: Follow-up with your primary care as needed, they will be able to reevaluate if necessary Return to ED if concerns You were treated today on an emergency basis; it may be scanlon to contact your primary care provider to notify them of your visit today. You may have been referred to your regular doctor or a specialist, please follow up as instructed. If your condition worsens or you can't get in to see the doctor, contact the Emergency Department. Medications What When Instructions Next Dose Unchanged albuterol (Albuterol (Eqv-Proventil HFA) 90 mcg/ inh inhalation aerosol) INHALE 2 PUFFS EVERY 4 TO 6 HOURS NEEDED FOR SHORTNESS OF BREATH COUGH WHEEZING ?? Unchanged ALPRAZolam (ALPRAZolam 3 mg oral tablet, extended release) TAKE 1 TABLET BY MOUTH TWICE DAILY ?? Unchanged cholecalciferol (Vitamin D3 1000 intl units oral capsule) TAKE THREE CAPSULES BY MOUTH EVERY DAY ?? Unchanged clomiPRAMINE (clomiPRAMINE 50 mg oral capsule) TAKE FOUR CAPSULES BY MOUTH AT BEDTIME WITH DINNER ?? Unchanged fluticasone-salmeterol (Advair Diskus 250 mcg-50 mcg inhalation powder) INHALE 2 PUFFS BY MOUTH TWO TIMES A DAY DIRECTED ?? Unchanged levothyroxine (Synthroid 200 mcg (0.2 mg) oral tablet) TAKE ONE TABLET BY MOUTH ONCE DAILY ?? Unchanged omeprazole (omeprazole 20 mg oral delayed release capsule) TAKE ONE CAPSULE BY MOUTH EVERY DAY ?? Education Materials Chest Wall Pain Chest wall pain is pain in or around the bones and muscles of your chest. Sometimes, an injury causes this pain. Excessive coughing or overuse of arm and chest muscles may also cause chest wall pain.Sometimes, the cause may not be known. This pain may take several weeks or longer to get better. Follow these instructions at home: Managing pain, stiffness, and swelling ? If directed, put ice on the painful area: ? Put ice in a plastic bag. ? Place a towel between your skin and the bag. ? Leave the ice on for 20 minutes, 2???3 times per day. Activity ? Rest as told by your health care provider. ? Avoid activities that cause pain. These include any activities that use your chest muscles or your abdominal and side muscles to lift heavy items. Ask your health care provider what activities are safe for you. General instructions ? Take rgjp-kle-yepoyqa and prescription medicines only as told by your health care provider. ? Do not use any products that contain nicotine or tobacco, such as cigarettes, e- cigarettes, and chewing tobacco. These can delay healing after injury. If you need help quitting, ask your health care provider. ? Keep all follow-up visits as told by your health care provider. This is important. Contact a health care provider if: ? You have a fever. ? Your chest pain becomes worse. ? You have new symptoms. Get help right away if: ? You have nausea or vomiting. ? You feel sweaty or light-headed. ? You have a cough with mucus from your lungs (sputum) or you cough up blood. ? You develop shortness of breath. These symptoms may represent a serious problem that is an emergency. Do not wait to see if the symptoms will go away. Get medical help right away. Call your local emergency services (911 in the [place] Do not drive yourself to the hospital. Summary ? Chest wall pain is pain in or around the bones and muscles of your chest. ? Depending on the cause, it may be treated with ice, rest, medicines, and avoiding activities that cause pain. ? Contact a health care provider if you have a fever, worsening chest pain, or new symptoms. ? Get help right away if you feel light-headed or you develop shortness of breath. These symptoms maybe an emergency. This information is not intended to replace advice given to you by your health care provider. Make sure you discuss any questions you have with your health care provider. Document Revised: 08/28/2021 Document Reviewed: 08/28/2021 Elsevier Patient Education ?? 2021 [employer] Tests Performed Radiology CT Angio Chest 10/01/2022 18:21 EDT Patient/Glass Unloading Equipment Tender Signature Patient Name:LEXUS COOPER I have received this information and my questions have been answered. Patient/Glass Unloading Equipment Tender Name: Patient/Glass Unloading Equipment Tender Signature: Relationship to Patient: Witness Name/Signature: Date: Electronically Signed on: 10/01/2022 18:45 EDTSigned by:AB CTA Chest vessels W contrast IV * Bryce Knight MD: VERIFY, VERIFY Event Display: Report PROCEDURE INFORMATION: Exam: CTA Chest With Contrast Exam date and time: 10/01/2022 5:55 PM Age: 57 years old Clinical indication: Shortness of breath; Additional info: SOB ? pe TECHNIQUE: Imaging protocol: Computed tomographic angiography of the chest with contrast. 3D rendering (Not supervised by radiologist): MIP and/or 3D reconstructed images were created by the technologist. Radiation optimization: All CT scans at this facility use at least one of these dose optimization techniques: automated exposure control; mA and/or kV adjustment per patient size (includes targeted exams where dose is matched to clinical indication); or iterative reconstruction. Contrast material: [id number]; Contrast volume: 100 ml; Contrast route: INTRAVENOUS (IV); REPORTING DATA: Count of CT and Cardiac NM exams in prior 12 months: This patient has received 0 known CTs and 0 known cardiac nuclear medicine studies in the 12 months prior to the current study. COMPARISON: CT ANGIO NECK 08/11/2018 10:32 AM FINDINGS: Pulmonary arteries: Timing of contrast material limits examination. No pulmonary embolism in the main, left, right pulmonary arteries. The more peripheral first and second order branches cannot be adequately assessed. Aorta: Unremarkable. No aortic aneurysm. No aortic dissection. Lungs: Unremarkable. No consolidation. No masses. Pleural spaces: Unremarkable. No pneumothorax. No pleural effusion. Heart: Unremarkable. No cardiomegaly. No pericardial effusion. Lymph nodes: Unremarkable. No enlarged lymph nodes. Bones/joints: Unremarkable. No acute fracture. Soft tissues: Unremarkable. IMPRESSION: No central pulmonary embolism. Examination is significantly technically limited. THIS DOCUMENT HAS BEEN ELECTRONICALLY SIGNED BY BRYCE KNIGHT MD on 10/01/2022 06:21 PM Final Signed by: Bryce Knight MD Signed (Electronic Signature): 10/01/2022 6:21 pm Patient Care team information Care Team Personnel Name: SUSIE LOPEZ APRN Position: No Access Member Role: Primary Care Physician Address: Address: [address] [place] [id number] Name: MAKENNA Jo Position: Physician Member Role: Physician Electric Organ Checker Address: Address: [address] [place] [phone] Name: Zehra Riuz Position: Nurse Member Role: Registered Nurse
--- OUTSIDE RECORDS SUMMARY | 2022-11-12 00:26 | XMS_ITS | Continuity of Care Document ---
Author Name Unknown Organization [facility] Address [address] [place] [id number] Care Team Providers Care Coordinate Measuring Equipment Operator Name Role Phone PRAVEENA LOPEZ Primary Care Physician [facility] [id number] Date(s): 10/20/22 - 10/20/[address] [phone] Encounter Diagnosis Musculoskeletal pain(Discharge Diagnosis) - 10/20/22 Discharge Disposition: Home or Self Care Attending Physician: Ricky Espitia MD Admitting Physician: Ricky Espitia MD Allergies, Adverse Reactions, Alerts Substance Reaction Severity Status gabapentin Unknown Active NSAIDs Unknown Active Functional Status 10/20/22 Other exposure to Infectious Disease Non e [...] Start Date: 10/01/22 Status: Ordered Mental Status 10/20/22 Eye Opening Response Kenyatta Spontaneous ly Best Verbal Response Kenyatta Oriented Best Motor Response Kenyatta Obeys comman ds Joseph Coma Score 15 Problem List Condition Confirmation Course Effective Dates Status H ealth Status Informant Musculoskeletal pain Confirmed Active Results Laboratory List Name Date Lactic Acid 10/20/22 Automated Diff 10/20/22 C-Reactive Protein 10/20/22 CBC w/ Diff 10/20/22 Comprehensive Metabolic Panel (CMP) 10/20 Lipase Level 10/20/22 Magnesium Level 10/20/22 PT/ INR 10/20/22 Most recent to oldest [Reference Range]: 1 WBC [4.8-10.8 K/mcL] 7.8 K/mcL (10/20/22 3:25 PM) RBC [4.20-5.40 Million/mcL] 4.73 Million /mcL (10/20/22 3:25 PM) Neutro Auto [42.2-75.2 %] 52.9 % (10/20/22 3:25 PM) Lymph Auto [20.5-51.1 %] 37.9 % (10/20/22 3:25 PM) Obion Auto [1.7-9.3 %] 6.6 % (10/20/22 3:25 PM) Basophil Auto [0.0-0.8 %] 0.9 % *HI* (10/20/22 3:25 PM) Prothrombin Time [9.1-10.6 seconds] 9.5 seconds (10/20/22 3:25 PM) INR [0.9-1.1] 0.9 (10/20/22 3:25 PM) BUN [8-26 mg/dL] 13 mg/dL (10/20/22 3:25 PM) Glucose Level [74-106 mg/dL] 123 mg/dL *HI* (10/20/22 3:25 PM) Potassium Level [3.5-5.1 mmol/L] 3.9 mmo l/L (10/20/22 3:25 PM) Baso Absolute [0.0-0.2 K/mcL] 0.1 K/mcL (10/20/22 3:25 PM) MCV [81.0-99.0 fL] 95.6 fL (10/20/22 3:25 PM) CRP [<=10.0 mg/L] 30.0 mg/L *HI* (10/20/22 3:25 PM) AST [15-41 IntlUnit/L] 28 IntlUnit/L (10/20/22 3:25 PM) ALT [14-54 IntlUnit/L] 30 IntlUnit/L (10/20/22 3:25 PM) MCHC [32.0-36.0 g/dL] 33.0 g/dL (10/20/22 3:25 PM) Osmolality [275-295 mOsm/kg] 275 mOsm/kg (10/20/22 3:25 PM) Sodium Level [134-143 mmol/L] 137 mmol/L (10/20/22 3:25 PM) Lymph Absolute [1.2-3.4 K/mcL] 3.0 K/mcL (10/20/22 3:25 PM) Hct [37.0-47.0 %] 45.2 % (10/20/22 3:25 PM) Lipase Level [18-51 unit/L] 30 unit/L (10/20/22 3:25 PM) Calcium Level [8.9-10.3 mg/dL] 9.1 mg/dL (10/20/22 3:25 PM) Obion Absolute [0.1-0.6 K/mcL] 0.5 K/mcL (10/20/22 3:25 PM) Albumin Level [3.5-5.0 g/dL] 3.8 g/dL (10/20/22 3:25 PM) Protein Total [6.5-8.1 g/dL] 7.0 g/dL (10/20/22 3:25 PM) MCH [27.0-31.0 pg] 31.5 pg *HI* (10/20/22 3:25 PM) Magnesium Level [1.8-2.5 mg/dL] 2.1 mg/d L (10/20/22 3:25 PM) Neutro Absolute [1.4-6.5 K/mcL] 4.2 K/mc L (10/20/22 3:25 PM) Bilirubin Total [0.2-1.2 mg/dL] 0.7 mg/d L (10/20/22 3:25 PM) Hgb [12.0-16.0 g/dL] 14.9 g/dL (10/20/22 3:25 PM) Alk Phos [38-130 IntlUnit/L] 80 IntlUnit /L (10/20/22 3:25 PM) MPV [7.4-10.4 fL] 9.5 fL (10/20/22 3:25 PM) Platelets [130-400 K/mcL] 202 K/mcL (10/20/22 3:25 PM) CO2 [22-32 mmol/L] 29 mmol/L (10/20/22 3:25 PM) Eos Absolute [0.0-0.2 K/mcL] 0.1 K/mcL (10/20/22 3:25 PM) Lactic Acid Lvl [0.5-2.2 mmol/L] 1.7 mmo l/L (10/20/22 4:48 PM) Chloride Level [98-111 mmol/L] 100 mmol/ L (10/20/22 3:25 PM) RDW-CV [11.5-14.5 %] 13.3 % (10/20/22 3:25 PM) A/G Ratio 1.2 *NA* (10/20/22 3:25 PM) BUN/Creat Ratio [8.0-20.0] 17.3 (10/20/22 3:25 PM) Globulin 3.2 *NA* (10/20/22 3:25 PM) Imm Gran Absolute 0.03 *NA* (10/20/22 3:25 PM) Imm Gran Auto [0.0-0.5 %] 0.4 % (10/20/22 3:25 PM) Creatinine Level [0.44-1.00 mg/dL] 0.75 mg/dL (10/20/22 3:25 PM) Anion Gap [3.0-12.0] 8.0 (10/20/22 3:25 PM) Eos, Auto [0.00-3.00 %] 1.30 % (10/20/22 3:25 PM) eGFR CKD-EPI [>=60 mL/min/1.73 m2] 92 mL /min/1.73 m2 (10/20/22 3:25 PM) Vital Signs Most recent to oldest [Reference Range]: 1 Peripheral Pulse Rate [60-100 bpm] 74 bp m (10/20/22 3:05 PM) Respiratory Rate [12-24 br/min] 20 br/mi n (10/20/22 3:05 PM) Blood Pressure [90-140/60-90 mmHg] 111/7 7mmHg (10/20/22 3:05 PM) Weight Dosing 190.00 kg (10/20/22 3:19 PM) Weight Estimated 190.00 kg (10/20/22 3:05 PM) Height/Length Dosing 165.000 cm (10/20/22 3:19 PM) Height/Length Estimated 165.000 cm (10/20/22 3:05 PM) Social History Social History Type Response Tobacco Current everyday tob acco user Tobacco Use:. 6 cigarettes per day per day. Sex Hospital Discharge Instructions Patient Education 10/20/2022 16:23:34 Musculoskeletal Pain Musculoskeletal Pain Musculoskeletal pain refers to aches and pains in your bones, joints, muscles, and the tissues thatsurround them. This pain can occur in any part of the body. It can last for a short time (acute) ora long time (chronic). A physical exam, lab tests, and imaging studies may be done to find the cause of your musculoskeletal pain. Follow these instructions at home: Lifestyle ??? Try to control or lower your stress levels. Stress increases muscle tension and can worsen musculoskeletal pain. It is important to recognize when you are anxious or stressed and learn ways to manage it. This may include: ??? Meditation or yoga. ??? Cognitive or behavioral therapy. ??? Acupuncture or massage therapy. ??? You may continue all activities unless the activities cause more pain. When the pain gets better, slowly resume your normal activities. Gradually increase the intensity and duration of your activities or exercise. Managing pain, stiffness, and swelling ??? Treatment may include medicines for pain and inflammation that are taken by mouth or applied tothe skin. Take [id number] and prescription medicines only as told by your health care provider. ??? When your pain is severe, bed rest may be helpful. Lie or sit in any position that is comfortable, but get out of bed and walk around at least every couple of hours. ??? If directed, apply heat to the affected area as often as told by your health care provider. Usethe heat source that your health care provider recommends, such as a moist heat pack or a heating pad. ??? Place a towel between your skin and the heat source. ??? Leave the heat on for 20???30 minutes. ??? Remove the heat if your skin turns bright red. This is especially important if you are unable to feel pain, heat, or cold. You may have a greater risk of getting burned. ??? If directed, put ice on the painful area. To do this: ??? Put ice in a plastic bag. ??? Place a towel between your skin and the bag. ??? Leave the ice on for 20 minutes, 2???3 times a day. ??? Remove the ice if your skin turns bright red. This is very important. If you cannot feel pain, heat, or cold, you have a greater risk of damage to the area. General instructions ??? Your health care provider may recommend that you see a physical therapist. This person can helpyou come up with a safe exercise program. ??? If told by your health care provider, do physical therapy exercises to improve movement and strength in the affected area. ??? Keep all follow-up visits. This is important. This includes any physical therapy visits. Contact a health care provider if: ??? Your pain gets worse. ??? Medicines do not help ease your pain. ??? You cannot use the part of your body that hurts, such as your arm, leg, or neck. ??? You have trouble sleeping. ??? You have trouble doing your normal activities. Get help right away if: ??? You have a new injury and your pain is worse or different. ??? You feel numb or you have tingling in the painful area. Summary ??? Musculoskeletal pain refers to aches and pains in your bones, joints, muscles, and the tissues that surround them. ??? This pain can occur in any part of the body. ??? Your health care provider may recommend that you see a physical therapist. This person can helpyou come up with a safe exercise program. Do any exercises as told by your physical therapist. ??? Lower your stress level. Stress can worsen musculoskeletal pain. Ways to lower stress may include meditation, yoga, cognitive or behavioral therapy, acupuncture, and massage therapy. This information is not intended to replace advice given to you by your health care provider. Make sure you discuss any questions you have with your health care provider. Document Revised: 10/16/2020 Document Reviewed: 09/24/2020 [employer] Patient Education ?? 2021 [employer]. Follow Up Care 10/20/2022 15:04:58 With:PRAVEENA LOPEZ Address: [address] [place] [phone] When:5 to 7 days Discharge instructions * Event Display: Discharge Instructions Physician Emergency department Note * Taya Travis REPAIR DEPARTMENT MANAGER: PERFORM Event Display: ED Note Physician Authored Date: [id number] LEXUS COOPER :1965 Age:57 years Sex:Female Visit Date:10/20/2022 Primary Care Physician: PRAVEENA LOPEZ Basic Information Time Seen: Taya Thaddeus REPAIR DEPARTMENT MANAGER / 10/20/2022 15:25 Chief Complaint Patient complains of chest pain, worse on inspiration. Reports dx pleurisy 1 month ago, got better and over past few days pain has gotten worse. History Of Present Illness: ??This is a super morbid obese female??chronically??ill-appearing??who??presents for reevaluation of right-sided chest pain??reproducible??that she has had for almost a month.?? She was seen here andruled out for pulmonary embolism.?? She denies fever cough rash or lesion. ??She denies any injury??or trauma to the area.?? Her??CT??angio of the chest??showed no acute findings to explain her symptoms. ??She was discharged to home. ??Her??primary care provider has referred her for??a pulmonary evaluation.?? This is pending for next week.?? She has been using ibuprofen without much effect. ??Shehas also tried Biofreeze. ??He has been able to eat and drink with no nausea or vomiting. ??She??has had her gallbladder removed Review of Systems: 10 point review of systems??negative??except for as outlined in HPI Physical Exam Vitals & Measurements HR:??74??(Peripheral)?? RR:??20?? BP:??111/77?? SpO2:??96%?? HT:??165.000??cm?? WT:??190.00??kg??(Estimated)?? O2 Therapy:??Room air?? Super morbid obese female??no acute distress??head is atraumatic oral mucosa is moist??full range of motion to her neck respirations are even and unlabored??cardiovascular regular rate and rhythm??normal sinus rhythm on the EKG with no acute ST segment changes??her skin with no rashes or lesion over the area. ??There is no bruising. ??Full range of motion to all her extremities but is painful to for her to move her right upper extremity??as it aggravates her??discomfort.?? Neuro??awake alert oriented??no focal deficits??psychiatric normal mood and affect Medical Decision Making: Female patient with reproducible right-sided chest pain.?? CTA??performed a few weeks back was negative with no??etiology of her pain.??Will obtain routine lab. ??Vital signs are stable oxygenating??on room air??in the mid??to high 90's Labs are reviewed and no abnormalities with a normal lactic acid normal white blood cell count normal hemoglobin hematocrit kidney function liver function. ??Lipase also within normal limit.?? Pain is reproducible and??most likely muscle skeletal.?? She should follow-up with her primary care provider return here sooner for new or worsening symptoms Procedure No Qualifying Data Assessment/Plan 1.??Musculoskeletal pain??M79.18 Orders: Discharge Patient, 10/20/22 17:24:00 EDT Patient Discharge Condition stable Discharge Disposition home Patient Education Musculoskeletal Pain Follow Up With When Contact Information PRAVEENA LOPEZ Within 5 to [address] [place] [phone] Additional Instructions: Medication Reconciliation Unchanged albuterol (Albuterol (Eqv-Proventil HFA) [...] EVERY DAY. Problem List/Past Medical History Ongoing Musculoskeletal pain Historical No qualifying data Allergies NSAIDs gabapentin Social History Electronic Cigarette/Vaping Electronic Cigarette Use: Never. Tobacco Current everyday tobacco user Tobacco Use:. 6 cigarettes per day per day. Lab Results CBC and Differential?? LATEST RESULTS?? WBC?? 10/20/22 15:25?? 7.8?? RBC?? 10/20/22 15:25?? 4.73?? Hgb?? 10/20/22 15:25?? 14.9?? Hct?? 10/20/22 15:25?? 45.2?? MCV?? 10/20/22 15:25?? 95.6?? MCH?? 10/20/22 15:25?? 31.5 ??High?? MCHC?? 10/20/22 15:25?? 33.0?? RDW-CV?? 10/20/22 15:25?? 13.3?? Platelets?? 10/20/22 15:25?? 202?? MPV?? 10/20/22 15:25?? 9.5?? Neutro Auto?? 10/20/22 15:25?? 52.9?? Lymph Auto?? 10/20/22 15:25?? 37.9?? Obion Auto?? 10/20/22 15:25?? 6.6?? Eos, Auto?? 10/20/22 15:25?? 1.30?? Basophil Auto?? 10/20/22 15:25?? 0.9 ??High?? Imm Gran Auto?? 10/20/22 15:25?? 0.4?? Neutro Absolute?? 10/20/22 15:25?? 4.2?? Lymph Absolute?? 10/20/22 15:25?? 3.0?? Obion Absolute?? 10/20/22 15:25?? 0.5?? Eos Absolute?? 10/20/22 15:25?? 0.1?? Baso Absolute?? 10/20/22 15:25?? 0.1?? Imm Gran Absolute?? 10/20/22 15:25?? 0.03? Coagulation?? LATEST RESULTS?? Prothrombin Time?? 10/20/22 15:25?? 9.5?? INR?? 10/20/22 15:25?? 0.9? Routine Chemistry?? LATEST RESULTS?? Sodium Level?? 10/20/22 15:25?? 137?? Potassium Level?? 10/20/22 15:25?? 3.9?? Chloride Level?? 10/20/22 15:25?? 100?? CO2?? 10/20/22 15:25?? 29?? Alk Phos?? 10/20/22 15:25?? 80?? AST?? 10/20/22 15:25?? 28?? ALT?? 10/20/22 15:25?? 30?? BUN?? 10/20/22 15:25?? 13?? Glucose Level?? 10/20/22 15:25?? 123 ??High?? Creatinine Level?? 10/20/22 15:25?? 0.75?? BUN/Creat Ratio?? 10/20/22 15:25?? 17.3?? Calcium Level?? 10/20/22 15:25?? 9.1?? Protein Total?? 10/20/22 15:25?? 7.0?? Albumin Level?? 10/20/22 15:25?? 3.8?? Globulin?? 10/20/22 15:25?? 3.2?? A/G Ratio?? 10/20/22 15:25?? 1.2?? Bilirubin Total?? 10/20/22 15:25?? 0.7?? Anion Gap?? 10/20/22 15:25?? 8.0?? Lactic Acid Lvl?? 10/20/22 16:48?? 1.7?? Lipase Level?? 10/20/22 15:25?? 30?? Magnesium Level?? 10/20/22 15:25?? 2.1?? Osmolality?? 10/20/22 15:25?? 275?? CRP?? 10/20/22 15:25?? 30.0 ??High?? eGFR CKD-EPI?? 10/20/22 15:25?? 92? Electronically Signed on 10/20/22 05:44 PM Taya Travis APRN Emergency department Discharge instructions * Taya Travis REPAIR DEPARTMENT MANAGER: PERFORM Event Display: ED Discharge Information Authored Date: [id number] LEXUS COOPER :1965 Age:57 years Sex:Female Visit Date:10/20/2022 Primary Care Physician: PRAVEENA LOPEZ Discharge Instructions We would like to thank you for allowing us to assist you with your healthcare needs. The following includes patient education materials and information regarding your injury/illness. Diagnosis from Today's Visit Musculoskeletal pain Discharge Vitals Heart Rate??(Peripheral) 74 Respiratory Rate?? 20 Blood Pressure?? 111/77?? Height?? 64.96 in (165.000 cm) Weight??(Estimated) 418.95 lb (190.00 kg) Allergies NSAIDs gabapentin What to Do Next You Need to Schedule the Following Appointments Follow Up with??PRAVEENA LOPEZ When:??Within 5 to 7 days Where: [address] [place] [phone] You were treated today on an emergency [...] BY MOUTH EVERY DAY ?? Education Materials Musculoskeletal Pain Musculoskeletal pain refers to aches and pains in your bones, joints, muscles, and the tissues thatsurround them. This pain can occur in any part of the body. It can last for a short time (acute) ora long time (chronic). A physical exam, lab tests, and imaging studies may be done to find the cause of your musculoskeletal pain. Follow these instructions at home: Lifestyle ? Try to control or lower your stress levels. Stress increases muscle tension and can worsen musculoskeletal pain. It is important to recognize when you are anxious or stressed and learn ways to manageit. This may include: ? Meditation or yoga. ? Cognitive or behavioral therapy. ? Acupuncture or massage therapy. ? You may continue all activities unless the activities cause more pain. When the pain gets better, slowly resume your normal activities. Gradually increase the intensity and duration of your activities or exercise. Managing pain, stiffness, and swelling ? Treatment may include medicines for pain and inflammation that are taken by mouth or applied to theskin. Take svno-vym-xqtaokh and prescription medicines only as told by your health care provider. ? When your pain is severe, bed rest may be helpful. Lie or sit in any position that is comfortable, but get out of bed and walk around at least every couple of hours. ? If directed, apply heat to the affected area as often as told by your health care provider. Use theheat source that your health care provider recommends, such as a moist heat pack or a heating pad. ? Place a towel between your skin and the heat source. ? Leave the heat on for 20???30 minutes. ? Remove the heat if your skin turns bright red. This is especially important if you are unable to feel pain, heat, or cold. You may have a greater risk of getting burned. ? If directed, put ice on the painful area. To do this: ? Put ice in a plastic bag. ? Place a towel between your skin and the bag. ? Leave the ice on for 20 minutes, 2???3 times a day. ? Remove the ice if your skin turns bright red. This is very important. If you cannot feel pain, heat, or cold, you have a greater risk of damage to the area. General instructions ? Your health care provider may recommend that you see a physical therapist. This person can help youcome up with a safe exercise program. ? If told by your health care provider, do physical therapy exercises to improve movement and strength in the affected area. ? Keep all follow-up visits. This is important. This includes any physical therapy visits. Contact a health care provider if: ? Your pain gets worse. ? Medicines do not help ease your pain. ? You cannot use the part of your body that hurts, such as your arm, leg, or neck. ? You have trouble sleeping. ? You have trouble doing your normal activities. Get help right away if: ? You have a new injury and your pain is worse or different. ? You feel numb or you have tingling in the painful area. Summary ? Musculoskeletal pain refers to aches and pains in your bones, joints, muscles, and the tissues thatsurround them. ? This pain can occur in any part of the body. ? Your health care provider may recommend that you see a physical therapist. This person can help youcome up with a safe exercise program. Do any exercises as told by your physical therapist. ? Lower your stress level. Stress can worsen musculoskeletal pain. Ways to lower stress may include meditation, yoga, cognitive or behavioral therapy, acupuncture, and massage therapy. This information is not intended to replace advice given to you by your health care provider. Make sure you discuss any questions you have with your health care provider. Document Revised: 10/16/2020 Document Reviewed: 09/24/2020 [employer] Patient Education ?? 2021 [employer]. Tests Performed Lab Test Name Test Result Date/Time WBC 7.8 K/mcL 10/20/2022 15:25 EDT RBC 4.73 Million/mcL 10/20/2022 15:25 EDT Hgb 14.9 g/dL 10/20/2022 15:25 EDT Hct 45.2 % 10/20/2022 15:25 EDT MCV 95.6 fL 10/20/2022 15:25 EDT MCH 31.5 pg 10/20/2022 15:25 EDT MCHC 33.0 g/dL 10/20/2022 15:25 EDT RDW-CV 13.3 % 10/20/2022 15:25 EDT Platelets 202 K/mcL 10/20/2022 15:25 EDT MPV 9.5 fL 10/20/2022 15:25 EDT Neutro Auto 52.9 % 10/20/2022 15:25 EDT Lymph Auto 37.9 % 10/20/2022 15:25 EDT Obion Auto 6.6 % 10/20/2022 15:25 EDT Eos, Auto 1.30 % 10/20/2022 15:25 EDT Basophil Auto 0.9 % 10/20/2022 15:25 EDT Imm Gran Auto 0.4 % 10/20/2022 15:25 EDT Neutro Absolute 4.2 K/mcL 10/20/2022 15:25 EDT Lymph Absolute 3.0 K/mcL 10/20/2022 15:25 EDT Obion Absolute 0.5 K/mcL 10/20/2022 15:25 EDT Eos Absolute 0.1 K/mcL 10/20/2022 15:25 EDT Baso Absolute 0.1 K/mcL 10/20/2022 15:25 EDT Imm Gran Absolute 0.03 10/20/2022 15:25 EDT Prothrombin Time 9.5 seconds 10/20/2022 15:25 EDT INR 0.9 10/20/2022 15:25 EDT Sodium Level 137 mmol/L 10/20/2022 15:25 EDT Potassium Level 3.9 mmol/L 10/20/2022 15:25 EDT Chloride Level 100 mmol/L 10/20/2022 15:25 EDT CO2 29 mmol/L 10/20/2022 15:25 EDT Alk Phos 80 IntlUnit/L 10/20/2022 15:25 EDT AST 28 IntlUnit/L 10/20/2022 15:25 EDT ALT 30 IntlUnit/L 10/20/2022 15:25 EDT BUN 13 mg/dL 10/20/2022 15:25 EDT Glucose Level 123 mg/dL 10/20/2022 15:25 EDT Creatinine Level 0.75 mg/dL 10/20/2022 15:25 EDT BUN/Creat Ratio 17.3 10/20/2022 15:25 EDT Calcium Level 9.1 mg/dL 10/20/2022 15:25 EDT Protein Total 7.0 g/dL 10/20/2022 15:25 EDT Albumin Level 3.8 g/dL 10/20/2022 15:25 EDT Globulin 3.2 10/20/2022 15:25 EDT A/G Ratio 1.2 10/20/2022 15:25 EDT Bilirubin Total 0.7 mg/dL 10/20/2022 15:25 EDT Anion Gap 8.0 10/20/2022 15:25 EDT Lactic Acid Lvl 1.7 mmol/L 10/20/2022 16:48 EDT Lipase Level 30 unit/L 10/20/2022 15:25 EDT Magnesium Level 2.1 mg/dL 10/20/2022 15:25 EDT Osmolality 275 mOsm/kg 10/20/2022 15:25 EDT CRP 30.0 mg/L 10/20/2022 15:25 EDT eGFR CKD-EPI 92 mL/min/1.73 m2 10/20/2022 15:25 EDT Patient/Box Person Signature Patient Name:LEXUS COOPER I have received this information and my questions have been answered. Patient/Box Person Name: Patient/Box Person Signature: Relationship to Patient: Witness Name/Signature: Date: Electronically Signed on: 10/20/2022 17:24 EDTSigned by:[facility] Patient Care team information Care Team Personnel Name: PRAVEENA LOPEZ Position: No Access Member Role: Primary Care Physician Address: Address: [address], [place] [address] Name: Lilia Hernandez Position: Nurse Member Role: ED Nurse Name: Taya Travis APRN Position: Physician Member Role: Nurse Practitioner Address: Address: [address] [place] [address] [place] Care Team Related Persons Name: HANNAH COOPER
--- NOTE | 2022-11-12 07:32 | DI.US_ITS ---
APPROVED REPORT EXAM: Comprehensive 2D, Doppler, and color-flow Echocardiogram Patient Location: Out-Patient Drink Box Mechanic: Laurita Nelson RDCS (AE) Indications: dyspnea on exertion, assess pulmonary hypertension Other Information Study Quality: Fair. Technically limited study due to body habitus, inability to position patient sca n done supine. Conclusion Technically difficult and suboptimal study Left ventricular wall thickness and chamber size appear normal. Ejection fraction is approximately 6 0%. No segmental wall motion abnormalities are identified Right ventricle appears mildly dilated, grossly normal systolic function Mildly dilated right atrium. Left atrium size is normal Within the limits of the study no significant valvular disease is identified Mildly dilated ascending aorta measuring 3.43 cm Wall motion Left Ventricle Technically very limited imaging. The overall left ventricular systolic function appears normal. Jacki onal wall motion is grossly normal. LVEF is 56%. Right Ventricle Right ventricle is mildly dilated Right ventricular systolic function is grossly normal. Atria The left atrium size is normal. The right atrium is mildly dilated Aortic Valve Valve is not well-visualized Number of aortic valve leaflets could not be assessed. normal in structu re. There is no aortic valvular stenosis. No aortic regurgitation is present. Mitral Valve The mitral valve is grossly normal in structure. No evidence of mitral valve stenosis. Trace mitral r egurgitation. Tricuspid Valve The tricuspid valve is grossly normal in structure. There is no tricuspid valve stenosis. Trace tricu spid regurgitation. Unable to assess PA pressure. Pulmonic Valve Pulmonic valve is not well visualized. There is no pulmonic valvular stenosis. Great Vessels Aortic root is mildly dilated. The ascending aorta is mildly dilated. Aortic arch is not well visual ized. The IVC was not visualized. Pericardium There is no pericardial effusion. 2D Dimensions Ao Root d 3.73 cm F: 2.7 - 3.3 LV Vol A2C d MOD 92.9 mL RA Area A4C 15.00 cm2 LV Vol A4C d MOD 84.4 mL RA Vol/ BSA A4C s A-L 14.7 mL/m2 LA vol/ BSA A2C s A-L 19.9 mL/m2 Ao Asc Diam d 3.43 cm F: 2.3 - 3.1 LA vol/ BSA A4C s A-L 19.7 mL/m2 LVEF (Hernandez's) 55.33 % F: 54 - 74 LA Vol/ BSA Biplane s A-L 20.5 mL/m2 LV Volume 60.97 mL F: 46 - 106 LA Area A4C s MOD 19.82 cm2 LV Volume Index 22.49 mL/m2 F: 29 - 61 LA Area A2C s MOD 19.20 cm2 LV Vol Biplane MOD 89.1 mL LV EF A4C MOD 55.4 % LV EF A2C MOD 58.2 % LV EF Biplane MOD 55.3 % SV 49.29 mL SV Index 18.18 mL/m2 LV Diastology MV E' medial 0.090 (>0.07 m/s) E/A Ratio 1.0 LV E/e MED 9.10 (<14) MV E Vmax 0.82 (0.4-1.3 m/s) MV E' lateral 0.093 (>0.1 m/s) MV A Vmax 0.85 (0.4-1.3 m/s) LV E/e LAT 8.75 (<14) MV E/A Ratio 0.92 MV E/E' medial 9.11 MV E/E' lateral 8.79 Aortic Valve LVOT Area 3.66 cm2 AoV Area Vmax 2.62 cm2 LVOT Vmax 1.05 m/s AoV Area/ BSA (Vmax) 0.97 cm2/m2 LVOT Peak Grad 4.4 mmHg LVOT Diam s 2.15 cm AoV Vmax 1.47 m/s Velocity Ratio 0.71 AoV Mean Luis. 1.12 m/s AoV Peak Grad 8.6 mmHg AoV Mean Grad 5.3 mmHg AoV VTI 0.266 m Mitral Valve MV DT 329 (160-240 msec) MV PHT 95 msec MV Area PHT 2.30 cm2 Pulmonary Valve PV Vmax 1.08 (0.5-1.5 m/s) RVOT Peak Gr. 4.24 mmHg PV Peak Grad 4.6 mmHg RVOT Vmax 1.03 m/s
== END 2022-11-12 00:44 ==
PROVIDERS: PCP Physician Assistant; Visit Provider Student in an Organized Health Care Education/Training Program
DX: R06.00 Dyspnea, unspecified (principal)
CPT/HCPCS: 93306

== ENCOUNTER 2023-01-18 04:48 | Outpatient (CLI) | payer OTHER, MEDICAID, SELFPAY | END 2023-01-18 04:49 | disposition home or self-care (01) | PROVIDERS: PCP Physician Assistant; Visit Provider Nurse Practitioner | DX: G47.33 Obstructive sleep apnea (adult) (pediatric) (principal) | CPT/HCPCS: 94762 ==

== ENCOUNTER 2023-03-29 02:24 | Outpatient (CLI) | payer OTHER, MEDICAID, SELFPAY ==
[2023-03-29] MEDS: Inhaler, Assist Device 1 EACH MC (15:36)
[2023-03-29] MEDS: Levalbuterol HFA 15 GM INH 4 PUFF IH (15:36)
== END 2023-03-29 02:25 | disposition home or self-care (01) ==
LOC: RT 02:25
PROVIDERS: PCP Physician Assistant; Visit Provider Student in an Organized Health Care Education/Training Program
DX: R06.00 Dyspnea, unspecified (principal)
CPT/HCPCS: 94060; 94726; 94729

== ENCOUNTER → 2023-04-05 00:23 | Outpatient (CLI) | payer OTHER, MEDICAID, SELFPAY ==
--- NOTE | 2023-04-05 07:00 | DI.CTLCSR_ITS ---
Exam(s) CT CHEST LUNG CANCER SCREEN EXAM: CT CHEST LUNG CANCER SCREEN CLINICAL HISTORY: Screening for lung cancer,SMOKER,F17.210 TECHNIQUE: Imaging Protocol: Axial computed tomography images with coronal and sagittal reformatted images were created and reviewed COMPARISON: CT CT CHEST/ABD/PEL WO from 05/13/[address] CHEST/ABD/PEL W from 09/30/2021 FINDINGS: There is artifact from the patient's body habitus. Tracheobronchial tree: Patent where visualized. Pulmonary parenchyma: No consolidation or dominant measurable mass. No architectural distortion. Lung Nodules: None. Mediastinum and Yanira: No dominant adenopathy or fluid collection. The esophagus is unremarkable. Thyroid gland: Unremarkable. Lymph nodes: Unremarkable. Pleura: No effusion or pneumothorax. Heart: The heart is not dilated. No coronary artery calcifications are seen. No pericardial effusion . Aorta: Thoracic aorta non-dilated.Atherosclerosis. Upper abdomen: Unremarkable. Soft Tissues: Unremarkable. Bones: Within normal limits. There are old healed right rib fractures. IMPRESSION: 1. No pulmonary nodules. 2. Examination limited by artifact from the patient's body habitus. Lung RADS Cat 1 - Negative: No nodules and definitely benign nodules Lung-RADS 1.0 CATEGORIES: Category 0 - Prior chest CT exam(s) being located for comparison. Category 1 - Annual screening in 12 months. No nodules or definitely benign nodules. Category 2 - Annual screening in 12 months. Benign appearance. Nodules with low likelihood of becomin g active cancer. Category 3 - 6-month follow-up. Probably benign. Short-term follow-up suggested. Nodules with low lik elihood of becoming active cancer. Category 4A - 3-month follow-up and CT/PET if >8 mm in size. Suspicious finding. Findings which requi re additional testing. Category 4B - Findings which require additional testing and tissue sampling. Suspicious finding. Category 4X - Category 3 or 4 nodules with additional features or imaging findings that increases the suspicion of malignancy. Modifier S- Potentially clinically significant finding. (Non lung cancer) RADIATION DOSE DELIVERED: Total DLP Total DLP DATA REPOSITORY: All CT scans at this facility are submitted to the National Radiology Data Registry (NRDR) Dose Index Registry (DIR) with the [employer] (ACR). RADIATION OPTIMIZATION: All CT scans at this facility use at least one of these dose optimization te chniques: automated exposure control; mA and/or kV adjustment per patient size (includes targeted exa ms where dose is matched to clinical indication); or iterative reconstruction.
--- NOTE | 2023-04-08 16:13 | W.PFT ---
Date of service: 03/29/23 Time of Service: 14:44 Pulmonary Function Test Result Indications: Dyspnea Interpretation Spirometry: There is no airflow limitation. Borderline positive bronchodilator response. Methacholine challenge not performed as FEV1 is under 70%. Impression No airflow obstruction. Likely bronchodilator response, but did not technically meet criteria. Note: When compared to 07/29/22, FEV1 and FVC are slightly decreased. Clinical Correlation therefore is recommended.
== END ==
PROVIDERS: PCP Physician Assistant; Visit Provider Physician Assistant Surgical
DX: F17.210 Nicotine dependence, cigarettes, uncomplicated (principal); Z12.2 Encounter for screening for malignant neoplasm of respiratory organs
CPT/HCPCS: 71271; 94060

== ENCOUNTER 2023-07-26 10:52 | Outpatient (REF) | payer OTHER, MEDICAID, SELFPAY ==
[2023-07-26 16:51] LABS: ALT 35 U/L (14-59); AST 19 U/L (15-37); Albumin 3.6 g/dL (3.4-5.0); Alkaline Phosphatase 85 U/L (46-116); Anion Gap 8.3 mmol/L (3-11); BUN 12 mg/dL (7-18); Bilirubin, Total 0.3 mg/dL (0.2-1.0); CO2 29.7 mmol/L (21.0-32.0); Calcium 9.2 mg/dL (8.5-10.1); Calculated LDL 99 mg/dL (<100); Chloride 105 mmol/L (98-107); Cholesterol 194 mg/dL (<200); Estimated GFR 64.49 (mL/min/1.73m2); FREE T4 1.04 ng/dL (0.76-1.46); Glucose 104 mg/dL (74-106); HDL Cholesterol 46 mg/dL (40-60); Potassium 4.4 mmol/L (3.5-5.1); Sodium 143 mmol/L (136-145); TSH 6.95 uIU/mL (0.36-3.74); Total Protein 6.8 g/dL (6.4-8.2); Triglyceride 246 mg/dL (<150)
== END 2023-07-26 10:53 | disposition home or self-care (01) ==
LOC: NCHCN 10:52
PROVIDERS: PCP Physician Assistant; Visit Provider Physician Assistant
DX: E78.2 Mixed hyperlipidemia (principal); Z85.850 Personal history of malignant neoplasm of thyroid
CPT/HCPCS: 80053; 80061; 84439; 84443

== ENCOUNTER 2024-02-03 01:19 | Outpatient (CLI) | payer OTHER, MEDICAID, SELFPAY ==
--- OUTSIDE RECORDS SUMMARY | 2024-02-03 01:32 | XMS_ITS | Encounter Summary ---
Author Organization [facility] [place] [address] Care Team Providers Care Public Transportation Inspector Name Role Phone Roula Bauman APRN Primary Care Provider [phone] Encounter Details Date Type Department Care Team (Late st Contact Info) Description 05/13/2019 Ancillary Procedure [place] [id number] Juan Manuel Eldridge MD [facility] [place] [address] Social History Tobacco Use Types Packs/Day Years Used Date Smoking Tobacco: Former Cigarettes 0.5 25 Smokeless Tobacco: Former Quit: 01/09/2014 Alcohol Use Standard Drinks/Week Comments Yes 0 (1 standard drink = 0.6 oz pur e alcohol) Sex and Gender Information Value Date Recorded Sex Assigned at Not on file Gender Identity Not on file Sexual Orientation Not on file documented as of this encounter Plan of Treatment Scheduled Procedures Name Priority Associated Diagnoses Date/Ti me COLONOSCOPY, DIAGNOSTIC (WRV U 3.26) + cologuard Procedure: Colonoscopy Indication: Positive Cologuard Sedation: MAC Rationale for MAC: MONSE with BiPap, severe obesity with BMI >40 Timeframe: within 3 months Specific provider: first available documented as of this encounter Procedures Procedure Name Priority Date/Time Associated Diagnosis Comments FILM LIBRARY STORAGE ONLY CT CHEST ABDOMEN PELVIS Routine 05/13/2019 12:00 AM EST documented in this encounter Results * Film Library- Storage Only CT Chest Abdomen Pelvis (05/13/2019 12:00 AM EST) Narrative [facility] - 12/21/2021 1:24 PM EDT This exam is auto-finalizing. It's purpose is for storage only. Juan Manuel Eldridge MD [facility] ERABLES Performing Organization Address City/State/[facility] Co de Phone Number [place], [place] documented in this encounter Visit Diagnoses Not on filedocumented in this encounter Care Teams Public Transportation Inspector Relationship Specialty Start Date End Date Roula Bauman, VETERINARY DENTIST [address] [place] [address] PCP - General 11/14/14 documented as of this encounter
--- OUTSIDE RECORDS SUMMARY | 2024-02-03 01:32 | XMS_ITS | Encounter Summary ---
Author Organization [facility] Address [address] [place] [address] Care Team Providers Care Telecommunications Project Manager Name Role Phone Mariaelena Garces SENIOR ANALYST Unavailable [phone] Kyaw Ahn RPA Primary Care Provider [phone] Reason for Visit * Reason Onset Date Comments Medications Refill 12/26/2023 Encounter Details Date Type Department Care Team (Late st Contact Info) Description 12/26/2023 Refill [facility] Endocrinology [address] [place] [address] Samantha Mcguire, OMRRIS [address] [place] [address] Medications Refill Social History Tobacco Use Types Packs/Day Years Used Date Smoking Tobacco: Every Day Cigarettes 0.3 25 Smokeless Tobacco: Never Alcohol Use Standard Drinks/Week Comments Not Currently 0 (1 standard drink = 0.6 oz pur e alcohol) Interpersonal Safety Answer Date Record ed Physically Hurt Never 01/27/2020 Verbally Threaten Not on file 01/27/2020 Sex and Gender Information Value Date Recorded Sex Assigned at Not on file Gender Identity Female 06/15/2021 12:28 EST Sexual Orientation Not on file documented as of this encounter Functional Status Functional Status Response Date of Assess ment Because of a physical, menta l, or emotional condition, does this person have difficulty doing errands alone such as visiting a doctor's office or shopping? Yes 05/22/2019 Cognitive Status Response Date of Assessm ent Because of a physical, menta l, or emotional condition, does this person have serious difficulty concentrating, remembering, or making decisions? Yes 05/22/2019 documented as of this encounter Ordered Prescriptions Prescription Sig Dispensed Refills Start Date End Da te levothyroxine (SYNTHROID) 25 mcg tablet Take one extra tablet of 25 mcg three times a week (she is to continue with 200 mcg every day) 12 Tablet 3 12/26/2023 documented in this encounter Plan of Treatment Upcoming Encounters Date Type Department Care Team (Late st Contact Info) Description 02/07/2024 11:30 EDT Office Visit [facility] Endocrinology [address] [place] [address] Brenna Carmona MD [address] [facility] [address] [place] [phone] documented as of this encounter Visit Diagnoses Not on filedocumented in this encounter Discontinued Medications Medication Sig Discontinue Reason Start Date End Da te levothyroxine (SYNTHROID) 25 mcg tablet Take one extra tablet of 25 mcg three times a week (she is to continue with 200 mcg every day) Reorder 09/05/2023 12/26/2023 documented as of this encounter Care Teams Telecommunications Project Manager Relationship Specialty Start Date End Date Kyaw Ahn RPA [address] [place] [address] [address] [place] [address] PCP - General Family Medicine - Primary Care 09/05/23 Mariaelena Garces NP [address] [facility] [address] [place] [phone] Nurse Practitioner Endocrinology, Diabetes and Metabolism 07/20/21 documented as of this encounter
--- OUTSIDE RECORDS SUMMARY | 2024-02-03 01:32 | XMS_ITS | Encounter Summary ---
Author Organization [facility] Address [address] [place] [address] Care Team Providers Care Motor And Generator Brush Cutter Name Role Phone Lynne Ramírez Primary Care Provider [phone] Reason for Visit * Reason Comments New Patient Visit joint pain * Referral (Routine) - Closed Specialty Diagnoses / Procedures [facility] Rhe[facility]ology Diagnoses Myalgia, unspecified site Lynne Ramírez FNP [address] [place] [address] [place] [address] [address] [place] [id number] Referral ID Status Reason Start Date Expiration Date Visits Re quested Visits Authorized [id number] Closed 1 1 Encounter Details Date Type Department Care Team (Late st Contact Info) Description 05/22/2019 14:55 EST Office Visit [facility] Rheumatology & Immunology - [address] [id number] Constantine Correia MD [address] [place] [address], [address] [place] [address] Sicca syndrome (HCC-CMS) (Primary Dx); Chronic pain of both knees Social History Tobacco Use Types Packs/Day Years Used Date Smoking Tobacco: Some Days Cigarettes 0.3 25 Smokeless Tobacco: Never Sex and Gender Information Value Date Recorded Sex Assigned at Not on file Gender Identity Female 06/15/2021 12:28 EST Sexual Orientation Not on file documented as of this encounter Last Filed Vital Signs Vital Sign Reading Time Taken Comments Blood Pressure 128/78 05/22/2019 1440 EST Pulse 119 05/22/2019 1440 EST Temperature - - Respiratory Rate - - Oxygen Saturation - - Inhaled Oxygen Concentration - - Weight 171 kg (377 lb) 05/22/2019 1440 EST Height 165.7 cm (5' 5.25) 05/22/2019 1440 EST Body Mass Index 62.26 05/22/2019 1440 EST documented in this encounter Functional Status Functional Status Response [...] Yes 05/22/2019 documented as of this encounter Patient Instructions * Patient Instructions* Constantine Correia MD - 05/22/2019 14:55 EST I do not see any definitive inflammatory disorders or connective tissue disorders at this time. Your mouth dryness is most likely secondary to few of your medications. Few labs have been ordered to rule out Sjogren's syndrome. Continue drinking water and you could try few over the counter therapies for your dry mouth like biotene products, spry products, xylitol based sugar free gum, sugar free lemon drops, Xylimelts etc. Continue care for your back pain and degenerative knee pain through pain clinic and orthopedics. documented in this encounter Progress Notes * Constantine Correia MD - 05/22/2019 1455 EST DIVISION OF RHEUMATOLOGY AND CLINICAL IMMUNOLOGY CONSULT NOTE Date of Service: 05/22/2019 Patient seen in consultation at the request of Lynne Ramírez FNP for rheumatologic evaluation fordry mouth and generalized aches. Chief Complaint Patient presents with ??? New Patient Visit joint pain HISTORY OF PRESENT ILLNESS: Ms. Vanesa Marrero is a 54 y.o. woman with h/o sleep apnea, follicular thyroid ca s/p subtotal thyroidectomy and radiation 30 years ago, GERD, abdominal wall hernia repair, cholecystectomy and agoraphobia who presents today for rheumatologic evaluation for dry mouth and generalized aches. She complains of chronic neck and low back pain for over 20 years. She mentions that her neck pain may have been present since she was around age 28. She has been on various treatments for the same over the years. She reports that she has tried injections to her low back region in the past and is currently receiving RFA treatments intermittently through pain clinic. She is also participating in pool therapy and this seems to be providing some symptom relief. She also reports bilateral knee painbut denies any associated swelling, redness or warmth. She reports that she has seen orthopedics for the same about 15 years ago and was diagnosed with severe osteoarthritis at her knees. Other peripheral joints appear relatively fine at this time. She denies any skin photosensitivity or skin psoriasis. She reports that she has been bruising easily with IV blood draws and has an ecchymosis over her right elbow region at this time. She denies any oral ulcerations, lymphadenopathy, fevers, chills, weight changes, dyspnea, cough, pleurisy, chestpains, palpitations, abdominal pain, diarrhea, dysuria, uveitis history, blood clot history or rainouts phenomenon. She has oral sicca but denies any associated ocular sicca. She has been drinking water frequently for her oral sicca. Her oral sicca is associated with some dental issues and she seesher dentist on a frequent basis for the same. No associated dysphagia or dysphonia. Her sleep is disturbed but appears to be getting better since changing the mask for her BiPAP machine. Her need fordaytime sleeps have also decreased in the past few days. REVIEW OF SYSTEMS: Symptom Yes No Symptom Yes No Fever X Morning stiffness X Fatigue X Numbness/ tingling X Night sweats X Headaches X Weight change X Muscle weakness X Eye discomfort X Dysuria X Mouth/nose sores sicca Urinary frequency X Chest pain X Hematuria X Palpitations X Trouble sleeping X Dyspnea X Anxiety X Cough X Depression X Nausea/ vomiting X Change in mood X Abdominal pain X Skin rash/ changes X Blood in stools X Sun induced rash X Diarrhea X Raynaud's X Constipation X Itching X Joint pain X Hair loss X Muscle pain X Other X PMH PSH Sleep apnea Follicular thyroid cancer GERD Agoraphobia Subtotal thyroidectomy (30 years ago), 2 parathyroid glands also removed with this surgery. Cholecystectomy Abdominal wall repair ALLERGIES Allergies Allergen Reactions ??? Gabapentin Other (See Comments) Unsure ??? Nsaids (Non-Steroidal Anti-Inflammatory Drug) Other (See Comments) Kidney failure SOCIAL HISTORY FAMILY HISTORY Social History Tobacco Use ??? Smoking status: Current Some Day Smoker Packs/day: 0.25 Years: 25.00 Pack years: 6.25 Types: Cigarettes ??? Smokeless tobacco: Never Used Substance Use Topics ??? Alcohol use: Not on file She is on disability at this time. Half sister has lupus. MEDICATIONS: Medications Prior to Today's Visit Medication Sig ??? acetaminophen (TYLENOL) 500 mg tablet Take 500 mg by mouth 3 times daily. ??? ALPRAZolam (XANAX XR) 3 mg XR tablet Take 3 mg by mouth 2 times daily. ??? ALPRAZolam (XANAX) 1 mg tablet Take 1 mg by mouth as needed. ??? APPLE CIDER VINEGAR ORAL Take by mouth at bedtime. ??? B Complex Vitamins tablet Take by mouth once a week. ??? cholecalciferol, Vitamin D3, 2,000 unit tablet Take 2,000 Units by mouth daily. ??? clomipramine HCl (CLOMIPRAMINE ORAL) Take by mouth at bedtime. ??? hydrOXYzine (ATARAX) 25 mg tablet Take 50 mg by mouth 3 times daily as needed for Itching. ??? levothyroxine (SYNTHROID) 200 mcg tablet Take 200 mcg by mouth daily. ??? Magnesium 250 mg tablet Take by mouth daily. ??? Omeprazole 20 mg tablet,delayed release (DR/EC) Take by mouth daily. ??? turmeric (CURCUMIN MISC) by misc (non-drug; combo route) route at bedtime. No facility-administered medications prior to visit. OBJECTIVE: Blood pressure 128/78, pulse (!) 119, height 165.7 cm (65.25), weight (!) 171 kg (377 lb), last menstrual period 05/22/1989. General: No acute distress. Alert, fully oriented, pleasant, conversant. HEENT: Conjunctivae/corneas clear. Pupils equal, Sclerae anicteric. Mucus membranes dry; oropharynx clear. Neck supple, symmetrical, trachea midline Lungs: Clear to auscultation bilaterally. Heart: Regular rate and rhythm, S1, S2 present, no murmur Abdomen: Soft, non-tender, non-distended. Extremities: Extremities without cyanosis or edema. Skin: No rashes or lesions Musculoskeletal: Spine: Paraspinal tenderness noted at cervical and lumbar spine region. Shoulder/Elbow: No synovitis or effusion. Normal range of motion. Wrist/Hand: Minimal bony hypertrophic changes noted at small joints of hands bilaterally. No synovitis or effusion. Normal range of motion. Hips/Knee: Minimal bony hypertrophic changes noted at bilateral knees. No synovitis or effusion. Normal range of motion. Tender points: Few symmetrical tender points noted Labs: Imaging: IMPRESSION / PLAN: Ms. Vanesa Marrero is a 54 y.o. woman with chronic neck and low back pain, chronic knee pain from underlying osteoarthritis, sleep apnea and sleep disturbance and oral sicca symptoms. She was reassured that I do not see any definitive evidence of any inflammatory arthropathies/myopathies or connective tissue disorders at this time. Her oral sicca symptoms are nonspecific and are most likely secondary to some of her psychotropic medications. My suspicion for Sjogren's syndrome asa cause for her sicca symptoms is low at this time. Labs rheumatoid factor serologies were ordered as part of her evaluation for the same. She was advised to continue symptomatic management of her oral sicca by drinking water frequently and using [id number] therapies like Biotene products, spray products, xylitol-based sugar-free gum and XyliMelts. Her knee aches and neck/low back aches appear to be from underlying degenerative changes rather than an inflammatory arthropathy. She will continue care for the same through pain clinic/orthopedics. Her sleep disturbance could be contributing to some of her generalized aches at this time. She was advised to further work on sleep improvement. She will benefit from continued participation in pool therapy. PATIENT INSTRUCTIONS: Patient Instructions I do not see any definitive inflammatory disorders or connective tissue disorders at this time. Your mouth dryness is most likely secondary to few of your medications. Few labs have been ordered to rule out Sjogren's syndrome. Continue drinking water and you could try few over the counter therapies for your dry mouth like biotene products, spry products, xylitol based sugar free gum, sugar free lemon drops, Xylimelts etc. Continue care for your back pain and degenerative knee pain through pain clinic and orthopedics. Patient verbalizes understanding and agrees with plan. There are no barriers to understanding/learning. Constantine Correia MD 05/22/2019 Please note: Parts of this documentation was created using voice recognition software. Chief Mechanical Officer errors may be present. documented in this encounter Plan of Treatment Upcoming Encounters Date Type Department Care Team (Late st Contact Info) Description 02/07/2024 11:30 EDT Office Visit [facility] Endocrinology [address] [place], [place] [id number] Brenna Carmona MD [address] [place] [phone] documented as of this encounter Results * ANTI NUCLEAR AB (FILIBERTO), IFA (05/22/2019 16:50 EST) FILIBERTO Interpretation Negative Negative 2018 15:22 EST [facility] Blood VENOUS BLOOD / Unknown Venipuncture / Unknown 05/22/2019 16:50 EST 05/22/2019 17:42 EST Narrative [facility] - 05/23/2019 15:22 EST Results were obtained with the [employer] NOVA Lite HEp-2 FILIBERTO Kit by indirect immunofluorescence. Constantine Correia MD IMMUNOLOGY AND SEROLOGY ORDERABLES [facility] [address] [place] [address] * RHEUMATOID FACTOR (05/22/2019 16:50 EST) Rheumatoid Factor 8.0 <12.5 IU/mL 05/23/2019 11:34 EST [facility] Blood VENOUS BLOOD / Unknown Venipuncture / Unknown 05/22/2019 16:50 EST 05/22/2019 17:42 EST Constantine Correia MD CHEMISTRY & BL OOD GAS ORDERABLES Performing Organization Address [facility] de Phone Number [facility] [address] [place] [address] * SSB ANTIBODIES BY JIMMIE (05/22/2019 16:50 EST) SSB Antibody 2.4 <20.0 Units 05/29/2019 12:52 EST [facility] Comment: ? Negative: <20.0 Units ? Weak Positive: 20.0 - 39.9 Units ? Moderate Positive: 40.0 - 80.0 Units ? Strong Positive: >80.0 Units Results were obtained with the [employer] QUANTA Lite SS-B JIMMIE. ??SS-B values obtained with different manufacturers' assay methods may not be used interchangeably. ??The magnitude of the reported IgG levels cannot be correlated to an endpoint titer. Blood VENOUS BLOOD / Unknown Venipuncture / Unknown 05/22/2019 16:50 EST 05/22/2019 17:42 EST Constantine Correia MD IMMUNOLOGY AND SEROLOGY ORDERABLES Performing Organization Address [facility] Co de Phone Number [facility] [address] [place] [address] * SSA ANTIBODIES BY JIMMIE (05/22/2019 16:50 EST) SSA Antibody 1.3 <20.0 Units 05/29/2019 12:49 EST [facility] Comment: ? Negative: <20.0 Units ? Weak Positive: 20.0 - 39.9 Units ? Moderate Positive: 40.0 - 80.0 Units ? Strong Positive: >80.0 Units Results were obtained with the [employer] QUANTA Lite SS-A JIMMIE. ??SS-A values obtained with different manufacturers' assay methods may not be used interchangeably. ??The magnitude of the reported IgG levels cannot be correlated to an endpoint titer. Blood VENOUS BLOOD / Unknown Venipuncture / Unknown 05/22/2019 16:50 EST 05/22/2019 17:42 EST Constantine Correia MD IMMUNOLOGY AND SEROLOGY ORDERABLES Performing Organization Address City/State/[facility] Co de Phone Number [facility] [address] [place] [address] documented in this encounter Visit Diagnoses Diagnosis Sicca syndrome ([facility]-CMS)- Primary Sicca syndrome Chronic pain of both knees documented in this encounter Historical Medications * This list may reflect changes made after this encounter. Medication Sig Dispensed Refills Start Date End Date Magnesium 250 mg tablet Take 2 Caps by mouth daily. acetaminophen (TYLENOL) 500 mg tablet Take 1 Tablet by mouth daily. 2 in am hydrOXYzine (ATARAX) 25 mg tablet Take 2 Tablets by mouth 3 times daily as needed (for headaches). Omeprazole 20 mg tablet,delayed release (DR/EC) Take by mouth daily. clomipramine HCl (CLOMIPRAMINE ORAL) Take 200 mg by mouth at bedtime. ALPRAZolam (XANAX) 1 mg tablet Take 1 Tablet by mouth as needed. ALPRAZolam (XANAX XR) 3 mg XR tablet Take 1 Tablet by mouth 2 times daily. APPLE CIDER VINEGAR ORAL Take by mouth at bedtime. 07/28/2020 turmeric (CURCUMIN MISC) by misc (non-drug; combo route) route at bedtime. 07/28/2020 B Complex Vitamins tablet Take by mouth once a week. 07/28/2020 cholecalciferol, Vitamin D3, 2,000 unit tablet Take 1.5 Tablets by mouth daily. 08/02/2023 levothyroxine (SYNTHROID) 200 mcg tablet Take 200 mcg by mouth daily. 08/25/2020 added in this encounter Care Teams Motor And Generator Brush Cutter Relationship Specialty Start Date End Date Lynne Ramírez FNP [facility] [place] [address] PCP - General 03/12/19 09/04/23 documented as of this encounter
--- OUTSIDE RECORDS SUMMARY | 2024-02-03 01:32 | XMS_ITS | Clinical Summary ---
Author Organization [facility] Address [address] [facility] [place] [address] Care Team Providers Care Mechanical Service Representative Name Role Phone Roula Bauman APRN Primary Care Provider [phone] Allergies No known active allergies Medications Medication Sig Dispensed Refills Start Date End Date Status levothyroxine (SYNTHROID) 175 mcg tablet 175mcg, PO, QD 04/01/2005 Active modafinil (PROVIGIL) 200 mg tablet 04/01/2005 Active ARIPiprazole (ABILIFY) 5 mg tablet Take 5 mg by mouth daily. Active ALPRAZolam (XANAX XR) 3 mg 24 hr tablet Take 3 mg by mouth 2 times daily. Active ALPRAZolam (XANAX) 1 mg tablet Take 1 mg by mouth as needed. Active clomiPRAMINE (ANAFRANIL) 75 mg capsule Take 150 mg by mouth daily. Active piroxicam (FELDENE) 10 mg capsule Take 20 mg by mouth daily. Active acetaminophen (TYLENOL) 500 mg Tablet Take 650 mg by mouth 3 times daily. Active HYDROcodone-acetaminop hen 5-325 mg Tablet Take 1 tablet by mouth every 6 hours as needed for Pain. 6 tablet 0 11/14/2014 Active naproxen sodium (ANAPROX) 550 mg Tablet Take 550 mg by mouth 2 times daily (with meals). Active Active Problems Problem Noted Date Diagnosed Date Lumbosacral spondylosis without myelopathy 11/21 Mechanical low back pain 09/12/2013 Bilateral knee pain 08/23/2013 Depression 08/23/2013 Thyroid disease 08/23/2013 Sleep apnea 08/23/2013 Morbid obesity 08/23/2013 Encounters Date Type Department Care Team Description 01/24/2024 [place]phone [place] [phone] Jess [place] 01/20/2024 [place] [phone] lenin Pancho 11/29/2023 Transcribe Orders [place] [phone] Kyaw Ahn PA Special screening for malignant neoplasms, colon from Last 3 Months Family History Medical History Relation Comments Alcohol Use Disorder Father Relation Status Comments Father Social History Tobacco Use Types Packs/Day Years Used Date Smoking Tobacco: Former Cigarettes 0.5 25 Smokeless Tobacco: Former Quit: 01/09/2014 Tobacco Cessation:Ready to Q uit: Not Asked Alcohol Use Standard Drinks/Week Comments Yes 0 (1 standard drink = 0.6 oz pur e alcohol) Sex and Gender Information Value Date Recorded Sex Assigned at Not on file Gender Identity Not on file Sexual Orientation Not on file Last Filed Vital Signs Vital Sign Reading Time Taken Comments Blood Pressure 132/84 11/14/2014 3:57 AM EDT Pulse 81 11/14/2014 3:57 AM EDT Temperature 36.7 ??C (98.1 ??F) 11/14/2014 3:57 AM ED T Respiratory Rate 16 11/14/2014 3:57 AM EDT Oxygen Saturation 97% 11/14/2014 3:57 AM EDT Inhaled Oxygen Concentration - - Weight 178.3 kg (393 lb 1.3 oz) 11/14/2014 2:14 AM EDT Height 166.4 cm (5' 5.5) 02/26/2014 11 :38 AM EDT Body Mass Index 64.42 02/26/2014 11:38 AM EDT Plan of Treatment Scheduled Procedures Name Priority Associated Diagnoses Date/Ti me COLONOSCOPY, DIAGNOSTIC (WRV U 3.26) + cologuard Procedure: Colonoscopy Indication: Positive Cologuard Sedation: MAC Rationale for MAC: MONSE with BiPap, severe obesity with BMI >40 Timeframe: within 3 months Specific provider: first available Health Maintenance Due Date Last Done Comments CT Colonography 1963 Colonoscopy 1963 Colorectal Cancer Screening 1963 FIT DNA 1963 FIT 1963 Sigmoidoscopy (10 year) with FIT yearly 1963 Sigmoidoscopy 1963 HIV screen 1981 Hepatitis C Screening 1981 Tdap adult 1982 Tetanus vaccine 1982 HPV test 1993 PAP Smear 1993 Breast Cancer Share Decision Needed 2003 Breast Cancer screening 2003 Zoster vaccine (1 of 2) 2013 Advance Directive 2018 Influenza (Flu) vaccine (1 o f 1 - Influenza standard series) 02/26/2024 Covid-19 Vaccine Completed 07/01/2023, 01/2022, 10/19/2021, Additional history exists Care Teams Mechanical Service Representative Relationship Specialty Start Date End Date Roula Bauman APRN [address] [place] [address] PCP - General 11/14/14
--- OUTSIDE RECORDS SUMMARY | 2024-02-03 01:32 | XMS_ITS | Encounter Summary ---
[place] [address] Care Team Providers Care Hearing And Speech Assistant Name Role Phone Roula Bauman APRN Primary Care Provider [phone] Encounter Details Date Type Department Care Team (Late st Contact Info) Description 01/24/2024 [place]phone [place] [phone] Pancho Hart Social History Tobacco Use Types Packs/Day Years [...] on file documented as of this encounter Miscellaneous Notes * Telephone Encounter - Pancho Hart - 01/24/2024 8:10 AM EDT called to explain waitlist for MAC for COLO, left message documented in this encounter Plan of Treatment Scheduled Procedures Name Priority Associated Diagnoses Date/Ti me COLONOSCOPY, DIAGNOSTIC (WRV U 3.26) + cologuard Procedure: Colonoscopy Indication: Positive Cologuard Sedation: MAC Rationale for MAC: MONSE with BiPap, severe obesity with BMI >40 Timeframe: within 3 months Specific provider: first available documented as of this encounter Visit Diagnoses Not on filedocumented in this encounter Care Teams Hearing And Speech Assistant Relationship Specialty Start Date End Date Roula Bauman APRN [address] [place] [address] PCP - General 11/14/14 documented as of this encounter
--- OUTSIDE RECORDS SUMMARY | 2024-02-03 01:32 | XMS_ITS | Data Portability ---
Author Organization [place] - [facility] Address [address] [place] [address] Assessment No assessment recorded. Plan of Treatment Reminders Order Date Submit Date Provider Last Modified By Organization Details Last Modified Time Details Appointments Follow Up 2023 11:30A Sky AHN Not available Not available Not available Lab TSH + free T4, serum - Right AC 1 tiger 2023 024 [email or web address] [facility] (Registration ), [address] [place] [address] [place], [address], 10/24/2023 12:52:23 lipid panel, serum - Right AC 1 tiger 2023 024 [email or web address] [facility] (Registration ), [address] [place] [address] [place], [address], 10/24/2023 13:13:10 CMP, serum or plasma - Right AC 1 tiger 2023 024 LIAT [facility] (Registration ), [address] [place] [address] [place], [address], 07/26/2023 16:56:28 TSH + free T4, serum - Right AC 1 tiger 2023 024 [email or web address] [facility] (Registration ), [address] [place] [address] [place], [address], 10/24/2023 13:13:10 Referral physical therapist referral - Right knee pain with Tightness of hamstring attachmen t at knee. Morbid obesity 2023 024 [email or web address] [facility], [address], [address], [place], [address], 01/09/2024 14:38:11 pain managemen t referral - Increasin g low back pain with history of good response to radiofreq uency ablation. The last in 2019. 2023 024 GERI Banerjee , [address] [place] [address] Dr, [address], [place], [address], 11/04/2023 14:50:30 Procedures None recorded. Surgeries None recorded. Imaging MAMMO, screening , bilateral 2023 024 [email or web address] [facility], [address], [place], [address], 12/09/2023 15:15:40 Medication Orders None recorded. Patient TargetsNo targets recorded. Patient Instructions Encounter Date Encounter Id Patient Instructions Last Modified By Organization Details Last Modified Time 07/01/2023 [id number] mammogram: about this test [email or web address] Not available 07/01/2023 15:18:43 11/04/2023 [id number] Vanesa - we will refer you to the pain clinic to consider another RFA of your lower back. lorraine Not available 11/04/2023 10:32:18 Reason for Referral Physical Therapist Referral for Pain of right knee joint Right knee pain with Tightness of hamstring attachment at knee. Morbid obesity Referring Physician: Family Cintia Menjivar, Encounter Date: 07/01/2023 Home Health Referral for Imp aired mobility Referring Physician: Family Cintia Menjivar, Encounter Date: 07/04/2023 General Surgeon Referral for Screening for malignant neoplasm of colon positive cologuard 07/2023 Referring Physician: Family Cintia Menjivar, Encounter Date: 08/08/2023 Sleep Medicine Referral for Obstructive sleep apnea syndrome needs followup to keep equipment Referring Physician: Family Cintia Menjivar, Encounter Date: 08/08/2023 Sleep Medicine Referral for Obstructive sleep apnea syndrome uses O2 at night Referring Physician: Family Cintia Menjivar, Encounter Date: 09/05/2023 Pain Management Referral for Lumbosacral spondylosis without myelopathy Increasing low back pain with history of good response to radiofrequency ablation. The last in 2019. Referring Physician: Family Cintia Menjivar, Encounter Date: 11/04/2023 Pain Management Referral for Lumbosacral spondylosis without myelopathy Referring Physician: Family Cintia Menjivar, Encounter Date: 11/11/2023 Results Created Date Observation Date Name Description Value Unit Range Abnormal Flag LastModifiedBy Organization Detail LastModifiedTime 07/26/19 24 07/26/2023 COMPR EHENS SARANYA METAB OLIC PANEL calcium 9.2 mg/dL 8.5-10 .1 normal Not Available [address] [place], [address] 07/26/2023 16:56:27 07/26/19 24 07/26/2023 COMPR EHENS SARANYA METAB OLIC PANEL glucose 104 mg/dL 74-106 normal Not Available [address] [place], [address] 07/26/2023 16:56:27 07/26/19 24 07/26/2023 COMPR EHENS SARANYA METAB OLIC PANEL BUN 12 mg/dL 7-18 normal Not Available [address] [place], [address] 07/26/2023 16:56:27 07/26/19 24 07/26/2023 COMPR EHENS SARANYA METAB OLIC PANEL creatinine 1.0 mg/dL 0.55-1 .02 normal Not Available [address] [place], [address] 07/26/2023 16:56:27 07/26/19 24 07/26/2023 COMPR EHENS SARANYA METAB OLIC PANEL estimated GFR 64.49 mL/min /1.73m 2 Not Available [address] [place], [address] 07/26/2023 16:56:27 07/26/19 24 07/26/2023 COMPR EHENS SARANYA METAB OLIC PANEL total protein 6.8 g/dL 6.4-8. 2 normal Not Available [address] [place], [address] 07/26/2023 16:56:27 07/26/19 24 07/26/2023 COMPR EHENS SARANYA METAB OLIC PANEL albumin 3.6 g/dL 3.4-5. 0 normal Not Available [address] [place], [address] 07/26/2023 16:56:27 07/26/19 24 07/26/2023 COMPR EHENS SARANYA METAB OLIC PANEL bilirubin, total 0.3 mg/dL 0.2-1. 0 normal Not Available [address] [place], [address] 07/26/2023 16:56:27 07/26/19 24 07/26/2023 COMPR EHENS SARANYA METAB OLIC PANEL alk phos 85 U/L 46-116 normal Not Available [address] [place], [address] 07/26/2023 16:56:27 07/26/19 24 07/26/2023 COMPR EHENS SARANYA METAB OLIC PANEL sodium 143 mmol/ L 136-14 5 normal Not Available [address] [place], [address] 07/26/2023 16:56:27 07/26/19 24 07/26/2023 COMPR EHENS SARANYA METAB OLIC PANEL potassium 4.4 mmol/ L 3.5-5. 1 normal Not Available [address] [place], [address] 07/26/2023 16:56:27 07/26/19 24 07/26/2023 COMPR EHENS SARANYA METAB OLIC PANEL chloride 105 mmol/ L 98-107 normal Not Available [address] [place], [address] 07/26/2023 16:56:27 07/26/19 24 07/26/2023 COMPR EHENS SARANYA METAB OLIC PANEL CO2 29.7 mmol/ L 21.0-3 2.0 normal Not Available [address] [place], [address] 07/26/2023 16:56:27 07/26/19 24 07/26/2023 COMPR EHENS SARANYA METAB OLIC PANEL anion gap 8.3 mmol/ L 3-11 normal Not Available [address] [place], [address] 07/26/2023 16:56:27 07/26/19 24 07/26/2023 COMPR EHENS SARANYA METAB OLIC PANEL AST 19 U/L 15-37 normal Not Available [address] [place], [address] 07/26/2023 16:56:27 07/26/19 24 07/26/2023 COMPR EHENS SARANYA METAB OLIC PANEL ALT 35 U/L 14-59 normal Not Available [address] [place], [address] 07/26/2023 16:56:27 07/26/19 24 07/26/2023 LIPID 2 cholesterol 194 mg/dL <200 Not Available [address] [place], [address] 07/26/2023 16:56:28 07/26/19 24 07/26/2023 LIPID 2 triglyceride 246 mg/dL <150 high Not Available [address] [place], [address] 07/26/2023 16:56:28 07/26/19 24 07/26/2023 LIPID 2 HDL cholesterol 46 mg/dL 40-60 Not Available Ashley [address] [place], [address] 07/26/2023 16:56:28 07/26/19 24 07/26/2023 LIPID 2 calculated LDL 99 mg/dL <100 Not Available Micaela manrique [address] [place], [address] 07/26/2023 16:56:28 07/26/19 24 07/26/2023 TSH TSH 6.95 uIU/m L 0.36-3 .74 high Not Available [address] [place], [address] 07/26/2023 16:56:29 07/26/19 24 07/26/2023 FREE T4 free T4 1.04 NG/dL 0.76-1 .46 normal Not Available [facility] [address] [facility] , [place], [address] 07/26/2023 16:56:29 Result Notes None recorded. Problems Name Status Onset Date Resolution Date Notes Provider Name and Address Organization Details Recorded Time Lumbosacral spondylosis without myelopathy Active 2017 Miltilevel degenerative changes on 2019 Open MRI without spinal stenosis. Good response to RFA 2017 and 2019. Problem Code: M47.817; Problem Code Type: ICD-10; KYAW AHN PA-C [facility] [address], [place], [address] , [place] - [facility] 4 12:15:39 Mixed hyperlipidemi a Active 201703/28/2020 - Comments only - Lynne Ramírez [employer] - Elevated TGs, low HDL, acceptable LDL. Encouraged addition of healthy fats, reduction in carbs and sugars, increase in fiber intake. Will recheck in 6 months. Problem Code: E78.2; Problem Code Type: ICD-10; Not Available [facility] 3 04:17:37 Prurigo nodularis Active 201703/05/2019 - Comments only - Lynne Ramírez [employer] - Use clobetasol cream BID PRN. Problem Code: L28.1; Problem Code Type: ICD-10; Not Available [facility] 3 04:17:37 Generalized anxiety disorder Active 201712/01/2018 - Comments only - Lynne Ramírez [employer] - See above. Problem Code: F41.1; Problem Code Type: ICD-10; Not Available [facility] 3 04:17:37 Major depression, single episode Active 201705/12/2022 - Comments only - Lynne Ramírez [employer] - Mood improved, enjoying new grandsons. Continues with regular therapy. Problem Code: F32.9; Problem Code Type: ICD-10; Not Available [facility] 3 04:17:37 Obstructive sleep apnea syndrome Active 201711/03/2021 - Comments only - Lynne Ramírez APRN - Sleep improved with new mask. Problem Code: G47.33; Problem Code Type: ICD-10; Not Available [facility] 3 04:17:38 Hypothyroidis m Active 201711/03/2022 - Comments only - Kyaw Ahn RPA - TSH drawn today. Follows with endocrinology . Status post radioactive iodine treatment for thyroid cancer. In her 20s. Problem Code: E03.9; Problem Code Type: ICD-10; Not Available [facility] 3 04:17:38 Body mass index 40+ - severely obese Active 201709/28/2021 - Comments only - Lynne Ramírez APRN - Challenging situation. Extreme obesity contributing to chronic back and joint pain, impairing mobility. Pt describes low-carb diet, encouraged to continue, as well as limit portions. Unable to exercise d/t chronic pain. Problem Code: Z68.44; Problem Code Type: ICD-10; Not Available [facility] 3 04:17:38 Idiopathic osteoarthriti s Active 201712/27/2017 - Comments only - Lynne Ramírez APRN - Pool therapy twice weekly, ambulation limited. Working towards lowering wt enough to have knee replacements. Problem Code: M17.0; Problem Code Type: ICD-10; Not Available [facility] 3 04:17:38 History of malignant neoplasm of thyroid Active 201709/28/2021 - Comments only - Lynne Ramírez APRN - Followed by [facility] endo. Thyroid panel ordered. Problem Code: Z85.850; Problem Code Type: ICD-10; Not Available [facility] 3 04:17:38 Adult health examination Active 201705/12/2022 - Comments only - Lynne Ramírez APRN - Flu and covid vaccines given today, UTD with all other immunizations . Declines colonoscopy, UTD with mammogram. Problem Code: Z00.00; Problem Code Type: ICD-10; Not Available [facility] 3 04:17:38 Counseling Completed 201701/10/2018 12/27/2017 - Comments only - Lynne Ramírez APRN - Pt with multiple chronic issues. Mammogram ordered. Declines colonoscopy, given IFOB. Will need Td this year. No lab results rec'd from previous provider, will obtain from [facility] site. Problem Code: Z71.89; Problem Code Type: ICD-10; Not Available [facility] 3 04:17:38 Aneurysm Active 201701/18/2018 - Comments only - Minerva Jon - Consulted with neurology. Likely too small for surgery or concern. Patient very concerned, however, and would like MRI. [facility]erred [facility] but [facility] need [facility] go [place] [facility] because of [place]. Problem Code: I72.9; Problem Code Type: ICD-10; Not Available [facility] 3 04:17:39 Nicotine dependence Active 201911/03/2022 - Comments only - Kyaw Ahn RPA - She has been slowly weaning back. Now down to a third of a pack a day. She is motivated to quit altogether. Problem Code: F17.200; Problem Code Type: ICD-10; Not Available [facility] 3 04:17:39 Screening for malignant neoplasm of breast Active 2021 Problem Code: Z12.39; Problem Code Type: ICD-10; Not Available [facility] 3 04:17:39 Onychomycosis due to dermatophyte Active 202111/03/2021 - Comments only - Lynne Ramírez APRN - Referral to podiatry, per pt request. Problem Code: B35.1; Problem Code Type: ICD-10; Not Available [facility] 3 04:17:39 Dyspnea Active 202111/03/2022 - Comments only - Kyaw Ahn RPA - Recent evaluation with pulmonology. She had spirometry and is scheduled for methacholine challenge test. She uses her Advair inhaler twice daily routinely. Occasional use of rescue inhaler. Asthma as a child. Has follow-up with pulmonology. Problem Code: R06.02; Problem Code Type: ICD-10; Not Available [facility] 3 04:17:40 Chest pain Active 202111/03/2022 - Comments only - Kyaw Ahn RPA - Right flank pain for the past 2 months. No inciting injury or activity. She has had reassuring blood work and CT scans. No significant radiographic abnormality. The nature is most consistent with costochondrit is. Reassurance provided. Reviewed conservative measures. Moist heat. The discomfort has been improving. Problem Code: R07.9; Problem Code Type: ICD-10; Not Available [facility] 3 04:17:40 Pain of joint of knee Completed 201809/28/2021 Problem Code: M25.569; Problem Code Type: ICD-10; Not Available [facility] 3 04:17:40 Urgent desire to urinate Completed 201809/28/2021 Problem Code: R39.15; Problem Code Type: ICD-10; Not Available [facility] 3 04:17:40 Severe obesity Completed 201703/05/2019 Problem Code: E66.01; Problem Code Type: ICD-10; Not Available [facility] 3 04:17:40 Acute upper respiratory infection Completed 202105/04/2022 Problem Code: J06.9; Problem Code Type: ICD-10; Not Available [facility] 3 04:17:41 Exposure to sexually transmissible disorder Completed 201803/05/2019 Problem Code: Z20.2; Problem Code Type: ICD-10; Not Available [facility] 3 04:17:41 Hyperlipidemi a Completed 201703/23/2023 Problem Code: E78.5; Problem Code Type: ICD-10; Not Available [facility] 3 04:17:41 Screening for malignant neoplasm of colon Completed 201803/28/2020 Problem Code: Z12.11; Problem Code Type: ICD-10; Not Available [facility] 3 04:17:41 Pain in thoracic spine Completed 201809/28/2021 Problem Code: M54.9; Problem Code Type: ICD-10; Not Available [facility] 3 04:17:41 Impaired fasting glycemia Completed 201708/23/2019 Problem Code: R73.01; Problem Code Type: ICD-10; Not Available [facility] 3 04:17:41 Urinary tract infectious disease Completed 202009/28/2021 Problem Code: N39.0; Problem Code Type: ICD-10; Not Available [facility] 3 04:17:42 Retention of urine Completed 201809/28/2021 Problem Code: R33.9; Problem Code Type: ICD-10; Not Available [facility] 3 04:17:42 Altered bowel function Completed 201909/28/2021 Problem Code: R19.4; Problem Code Type: ICD-10; Not Available [facility] 3 04:17:42 Chronic kidney disease stage 3 Completed 201703/05/2019 Not Available [facility] 3 04:17:42 Problem Notes None recorded. Medical Equipment None Reported. Allergies Allergen ID Allergen Name Allergen Category Reaction Reaction Severity Criticality Documentation Date Start Date Code Code System Note Provider Name and Address Organization Details Recorded Time 34876 diclofena c medicatio n Not available Not available Not available 05/06/20232017 3355 RxNorm Ines Cruz RN [facility] 4 10:08:56 09856 gabapenti n medicatio n other mild low 11/04/2023 42304 RxNorm Fatig ue Ines Cruz RN [facility] 4 10:09:34 Medications Name Sig Start Date Stop Date Status Note LastModified by Organization Details LastModified Time neomycin- polymyxin -hydrocor t 3.5 mg/mL-10, 000 unit/mL-1 % ear solution 4 drop into both ears three times a day 09/22 completed Not Available Not Available Not Available nicotine 14 mg/24 hr daily transderm al patch Apply to hairless skin daily, rotate skin sites 03/28 completed Not Available Not Available Not Available ipratropi um 0.5 mg-albute rol 3 mg (2.5 mg base)/3 mL nebulizat ion soln Inhale 3 ml using nebulize r every four to six hours as needed active Not Available Not Available No t Available alprazola m 1 mg tablet TAKE 1 TABLET BY MOUTH EVERY DAY NEEDED FOR ANXIETY active Not Available Not Available No t Available Synthroid 200 mcg tablet TAKE ONE TABLET BY MOUTH EVERY DAY active Not Available Not Available No t Available naltrexon e 50 mg tablet TAKE 1/2 TABLET BY MOUTH ONCE DAILY 2023 active Not Available Not Available Not Avai lable clobetaso l 0.05 % topical cream apply twice daily to affect area (s) on arms 03/28 completed Not Available Not Available Not Available sumatript an 50 mg tablet Take 1 tab by mouth at onset of migraine ; may repeat in 2 hours x 1 12/01 completed Not Available Not Available Not Available liothyron ine 5 mcg tablet take Tuesday/ and 11/03 completed Not Available Not Available Not Available acetamino phen 500 mg tablet Take 2 tab by mouth twice a day 2017 active Not Available Not Available Not Avai lable bupropion HCl SR 100 mg tablet,12 hr sustained -release TAKE ONE TABLET BY MOUTH TWICE A DAY 2023 active Not Available Not Available Not Avai lable levothyro xine 25 mcg tablet TAKE 1 EXTRA TABLET OF 25MCG THREE TIMES A WEEK (TO CONTINUE WITH 200MCG DAILY) active Not Available Not Available No t Available Macrobid 100 mg capsule Take 1 capsule by mouth twice a day 12/06 completed Not Available Not Available Not Available Zofran 4 mg tablet 1 tablet every 8 hours as needed for nausea 2019 active Not Available Not Available Not Avai lable Vitamins B Complex tablet take 1 tablet weekly 2017 active Not Available Not Available Not Avai lable ranitidin e 150 mg tablet Take 1 tablet by mouth twice a day 09/22 completed Not Available Not Available Not Available prednison e 50 mg tablet Take 1 tablet by mouth once a day start 12/09/2105/04 completed Not Available Not Available Not Available indometha jason 25 mg capsule 1 po every 4 hours while awake 12/01 completed Not Available Not Available Not Available Advair Diskus 250 mcg-50 mcg/dose powder for inhalatio n Inhale 2 puff as directed twice a day active pulmonchon anderson. Patient state she no longer takes this. Does not find it makes a differen ce. She will discuss with lexi anderson.Gladys ent is unsure which dose she is suppose to be on Not Available Not Available Not Available betametha sone dipropion ate 0.05 % topical cream apply twice daily to affected area on arms as directed 03/28 completed Not Available Not Available Not Available docusate sodium 100 mg capsule Take 1 tab nightly 03/28 completed Not Available Not Available Not Available omeprazol e 20 mg capsule,d elayed release TAKE ONE CAPSULE BY MOUTH EVERY DAY active Not Available Not Available No t Available hydroxyzi ne HCl 25 mg tablet 1-2 tablet every four hours 11/03 completed Not Available Not Available Not Available polyethyl grant glycol 3350 (bulk) powder 1 capful of powder mixed in 8 oz of liquid then taken by mouth daily, 1/2 in AM and 1/2 in PM 09/22 completed Not Available Not Available Not Available clomipram ine 50 mg capsule TAKE FOUR CAPSULES BY MOUTH AT BEDTIME WITH DINNER active Not Available Not Available No t Available Ventolin HFA 90 mcg/actua tion aerosol inhaler INHALE 2 PUFFS BY MOUTH EVERY 4 TO 6 HOURS NEEDED FOR COUGH, WHEEZING OR SHORTNES S OF BREATH active Not Available Not Available No t Available Estrace 0.01% (0.1 mg/gram) vaginal cream Use every other day 09/22 completed Not Available Not Available Not Available Vitamin D3 25 mcg (1,000 unit) tablet take 2 tabs daily 2018 active Not Available Not Available Not Avai lable Vitamin D3 25 mcg (1,000 unit) capsule TAKE 3 CAPSULES BY MOUTH ONCE DAILY active Not Available Not Available No t Available nicotine (polacril ex) 2 mg buccal lozenge Take 1 lozange every 2 hours PRN 03/28 completed Not Available Not Available Not Available alprazola m ER 3 mg tablet,ex tended release 24 hr TAKE ONE TABLET BY MOUTH TWICE A DAY active Not Available Not Available No t Available cholecalc iferol (vitamin D3) 250 mcg (10,000 unit) capsule Take 2 tabs daily 2017 active Not Available Not Available Not Avai lable Glucosami ne active Not Available Not Available Not Available walker 2017 active Not Available Not Available Not Avai lable Advair HFA 115 mcg-21 mcg/actua tion aerosol inhaler 2 puff as directed twice a day USE 2 INHALATI ONS TWICE A DAY 11/03 completed pulmonol monica. Patient state she no longer takes this. Does not find it makes a differen ce. She will discuss with pulmonchon anderson.Gladys ent is unsure which dose she is suppose to be on Not Available Not Available Not Available glucosami ne-msm-ch ondroit-h rb 149-hyalu r 500 mg-500 mg-66.7 mg tablet Take 1 tab daily 2018 active Not Available Not Available Not Avai lable glucosami ne 750 mg-chondr oitin-msm no1 625 mg-C 30 mg-henrik 1 mg tablet Take 1 tablet once a day 09/22 completed Not Available Not Available Not Available Fiber Gummies active Not Available Not Available Not Available cannabidi ol (CBD) oral oil 6 drops 03/28 completed Not Available Not Available Not Available Wegovy 0.25 mg/0.5 mL subcutane ous pen injector Inject 1/4 pen injector subcutan eously once a week 12/24 completed Not Available Not Available Not Available Vitals Date Recorded Body height Body mass index (BMI) Body weight Body temperature Respiratory rate Heart rate Systolic blood pressure Diastolic blood pressure Provider Name and Address Organization Details Last Updated DateTime 4 166.37 cm 65.4 kg/m2 222859. 07 g 97.7 [degF] 20 /min 84 /min 110 mm[Hg] 88 mm[Hg] SABAS MCLAIN RN [place] [facility] 4 13:05:45 Date Recorded Body height Body mass index (BMI) Body weight Body temperature Heart rate Systolic blood pressure Diastolic blood pressure Provider Name and Address Organization Details Last Updated DateTime 4 166.37 cm 63.5 kg/m2 687931. 4 g 98.1 [degF] 72 /min 123 mm[Hg] 82 mm[Hg] Ines Cruz RN [facility] 10:12:12 Social History Question Answer Notes LastModified by Organization Details LastModified Time Tobacco Smoking Status Current Every Day Smoker SABAS MCLAIN RN [facility], [facility] 07/01/2023 13:34:40 Do You Have An Advance Directive? No Information not available 07/01/2023 Is Blood Transfusion Acceptable In An Emergency? Yes Information not available 07/01/2023 What Is Your Code Status? Full Code Information not available 07/01/2023 What Type Of Diet Are You Following? CARBOHYDRATE Information not available 07/01/2023 Do You Or Have You Ever Used E-cigarettes Or Vape? Current User Of Electronic Cigarettes Vapes Marijuana Information not available 07/01/2023 How Many Days Of Moderate To Strenuous Exercise, Like A Brisk Walk, Did You Do In The Last 7 Days? 0 Information not available 07/01/2023 Are You Following A Fluid Restriction Diet? No Information not available 07/01/2023 What Do You Do For Fun? See Grandchildren Information not available 07/01/2023 Would You Say That, In General, Your Health Is Fair Information not available 07/01/2023 How Often Does Anyone, Including Family, Physically Hurt You? Never Information not available 07/01/2023 How Often Does Anyone, Including Family, Insult Or Talk Down To You? Never Information not available 07/01/2023 How Often Does Anyone, Including Family, Threaten You With Harm? Never Information not available 07/01/2023 How Often Does Anyone, Including Family, Scream Or Curse At You? Never Information not available 07/01/2023 Within The Past 12 Months, You Worried That Your Food Would Run Out Before You Got Money To Buy More. Sometimes True Information not available 07/01/2023 Within The Past 12 Months, The Food You Bought Just Didn't Last And You Didn't Have Money To Get More. Sometimes True Uses A Credit Card Information not available 07/01/2023 How Hard Is It For You To Pay For The Very Basics Like Food, Housing, Medical Care, And Heating? Would You Say It Is: Somewhat Hard Information not available 07/01/2023 In The Past 12 Months, Has Lack Of Reliable Transportation Kept You From Medical Appointments, Meetings, Work Or From Getting Things Needed For Daily Living? No Information not available 07/01/2023 What Is Your Housing Situation Today? I Have Housing. Information not available 07/01/2023 Who Do You Live With? Alone Information not available 07/01/2023 How Often In The Past Year Have You Used Marijuana (including Smoking, Vaping, Dabbing, Or Edibles)? 2-3 Times Per Week Information not available 07/01/2023 How Often In The Past Year Have You Used Prescription Medications That Were Not Prescribed To You? Never Information not available 07/01/2023 How Often In The Past Year Have You Taken Your Own Prescription Medication More Than The Way It Was Prescribed Or For Different Reasons Than Its Intended Purpose? Never Information not available 07/01/2023 How Often In The Past Year Have You Used Other Drugs (for Example, Heroin, Cocaine, Meth, Salvia, Inhalants)? Never Information not available 07/01/2023 Have You Ever Used IV Drugs? No Information not available 07/01/2023 Date Of Most Recent SBINS 07/01/2023 Information not available 07/01/2023 Are You Following A Low Salt Diet? No Information not available 07/01/2023 Do You Have A Medical Power Of Submarine Diver? No Information not available 07/01/2023 What Was The Date Of Your Most Recent Tobacco Screening? 11/04/2023 Information not available 11/04/2023 What Is Your Current Pack Years? 30ormorepackyea rs Information not available 11/04/2023 What Is Your Relationship Status? Single Information not available 07/01/2023 Do You Or Have You Ever Used Smokeless Tobacco? Never Used Smokeless Tobacco Information not available 07/01/2023 What Types Of Sporting Activities Do You Participate In? None Information not available 07/01/2023 Has Tobacco Cessation Counseling Been Provided? Yes Information not available 07/01/2023 On What Date Was Tobacco Cessation Counseling Provided? 11/04/2023 Information not available 11/04/2023 Do You Have Any Dietary Restrictions? Yes Low Carb Diet Information not available 07/01/2023 Do You Or Have You Ever Used Any Other Forms Of Tobacco Or Nicotine? Yes Information not available 07/01/2023 Sex: Female Functional Status Question Answer Note LastModified by Organization D etails LastModified Time What is your exercise level? None Information not available 07/01/2023 Mental Status None recorded. Family History Relationship Description Onset Age of this Age Resolved Age Notes Father Family history of ac [place] medical disorder emphysema Father Family history of alcoholism Father No family history of respiratory disease COPD Father Family history of diabetes mellitus type 1 Mother Family history of ac [place] medical disorder [place] Mother Family history of he art failure Sister Family history of ac [place] medical disorder lupus Medical History No medical history recorded. Gynecological HistoryNo gynecological history recorded. Obstetrics History GPAL:G 0 P 0 0 0 0 Immunizations Vaccine Type Date Status Provider Name and Address Organization Details Recorded Time Influenza, split virus, quadrivalent, PF 07/01/[address], [place], [address], [facility] 07/01/2023 15:11:05 COVID-19, mRNA, LNP-S, PF, troy-sucrose, 30 mcg/0.3 mL 07/01/[address], [place], [address], [facility] 07/01/2023 15:11:05 Tdap 12/01/2018 completed Not Available [facility] 03:55:02 Td(adult) unspecified formulation 12/31/2007 completed Not Available [facility] 05/06/2023 03:55:03 Influenza, split virus, quadrivalent, PF 05/04/2022 completed Not Available [facility] 05/06/2023 03:55:03 COVID-19, mRNA, LNP-S, PF, 100 mcg/0.5mL dose or 50 mcg/0.25mL dose 09/22/2021 completed Not Available [facility] 05/06/2023 03:55:03 COVID-19, mRNA, LNP-S, PF, 100 mcg/0.5mL dose or 50 mcg/0.25mL dose 10/19/2021 completed Not Available [facility] 05/06/2023 03:55:03 COVID-19, mRNA, LNP-S, bivalent, PF, 30 mcg/0.3 mL dose 05/04/2022 completed Not Available [facility] 05/06/20 03:55:03 pneumococcal polysaccharide PPV23 01/20/2010 completed Not Available [facility] 2022 03:55:03 Hep B, unspecified formulation 10/07/2015 completed Not Available [facility] 05/06/2023 03:55:03 Hep B, unspecified formulation 03/12/2016 completed Not Available [facility] 05/06/2023 03:55:04 Past Encounters Encounter ID Performer Location Encounter Start Date Encounter Closed Date Diagnosis/Indication Diagnosis SNOMED-CT Code [id number] KYAW AHN PA-C [facility] [address] [place] [address] 07/01/2023 12:55:32 07/01/2023 13:59:26 Administration of influenza vaccine 20603375 Administra tion of SARS-CoV-2 vaccine 6908995315 Body mass index 40+ - severely obese 881163531 Dyspnea 138811440 Generalize d anxiety disorder 82223649 History of malignant neoplasm of thyroid 681645521 Mixed hyperlipidemia 267 127798 Nicotine dependence 5629 4008 Screening for malignant neoplasm of breast 713237822 Screening for malignant neoplasm of colon 277529500 Pain of ri ght knee joint 64472779689417 0 Lumbosacra l spondylosis without myelopathy 33369504 Adult [facility] th examination 475584450 [id number] Ines Cruz RN [facility] [address] [place] [address] 07/26/2023 10:23:14 07/26/2023 10:32:41 Mixed hyperlipidemia 484271558 History of malignant neoplasm of thyroid 974966437 [id number] KYAW AHN PA-C [facility] [address] [place] [address] 11/04/2023 09:54:10 11/04/2023 12:15:16 Dyspnea 731944133 Hypothyroidism 11477819 Generalize d anxiety disorder 74381337 Nicotine dependence 5629 4008 Body mass index 40+ - severely obese 505999285 Lumbosacra l spondylosis without myelopathy 58555055 Health Concerns Section Related Observation LastModified by Organization Detai ls LastModified Time None Recorded Concern Status LastModified by Organization Details LastModified Time None Recorded Advance Directives Directive N: Payers Encounter Date Sequence Insurance Name Policy Number Policy [place] Covered Member ID [place] Member ID Guarantor Name 07/01/2023 2 [employer] (MEDICAID) Vanesa F Janes [id number] Vanesa F Janes 07/01/2023 1 [employer] (MEDICARE REPLACEMENT HMO) Vanesa F Janes [id number] Vanesa F Janes 07/26/2023 2 [employer] (MEDICAID) Vanesa F Janes [id number] Vanesa F Janes 07/26/2023 1 [employer] (MEDICARE REPLACEMENT HMO) Vanesa F Janes [id number] Vanesa F Janes 11/04/2023 2 [employer] (MEDICAID) Vanesa F Janes [id number] Vanesa F Janes 11/04/2023 1 [employer] (MEDICARE REPLACEMENT HMO) Vanesa F Janes [id number] Vanesa F Janes Notes Date Note Type Note Provider Name and Address Organization Details Recorded Time 07/01/2023 text/html HPI Notes: Vibha barger is here for annual physical exam. She has been feeling pretty well. tolerating combination of bupropion and naltrexone well. Has lost some weight. Continues to follow with pulmonology. She had COVID this past early fall. She got over this fairly uneventfully. She continues to follow with psychiatry. No recent change in her medications. [address], [place], [address], [facility]. 07/01/2023 15:31:15 11/04/2023 text/html HPI Notes: Vibha barger is here for follow-up of obesity, dyspnea, hypothyroid, chronic low back pain, hyperlipidemia, nicotine dependence. Her thyroid supplementation was recently increased by endocrinology. Now at 225 mcg 3 times weekly. 200 mcg the other days. Continues to have good weight loss with a combination of naltrexone and Wellbutrin. Tolerating well. Her colonoscopy has been pushed off until later this summer. She had a positive Cologuard. She is interested in another radiofrequency ablation for her lower back. Her last 1 was several years ago. She had good response. Her back is bothering her more. [address], [place], [address], [facility]. 11/04/2023 12:17:19 OBGyn Episode No OBEpisode recorded.
--- OUTSIDE RECORDS SUMMARY | 2024-02-03 01:32 | XMS_ITS | Encounter Summary ---
Author Organization [facility] Address [address] [place] [address] Care Team Providers Care Instructor Watch Assembly Name Role Phone Lynne Ramírez JAVID Primary Care Provider [phone] Mariaelena Garces CAMP NURSE Unavailable [phone] Kyaw Ahn RPA Primary Care Provider [phone] Encounter Details Date Type Department Care Team (Late st Contact Info) Description 11/04/2021 Lab Requisition [facility] Pathology & Laboratory Medicine - [facility] [address] [place], [place] [address] Outr Resulting Lab, Provider Social History Tobacco Use Types Packs/Day Years Used Date Smoking Tobacco: Some Days Cigarettes 0.3 25 Smokeless Tobacco: Never Alcohol [...] Yes 05/22/2019 documented as of this encounter Plan of Treatment Upcoming Encounters Date Type Department Care Team (Late st Contact Info) Description 02/07/2024 11:30 EDT Office Visit [facility] Endocrinology [address] [place] [address] Brenna Carmona MD [address] [place] [phone] documented as of this encounter Procedures Procedure Name Priority Date/Time Associated Diagnosis Comments ZZCOVID-19 TEST [facility] PCR Today 11/03/2021 13:15 EDT COVID-19 TESTING Routine 11/03/2021 13:1 5 EDT documented in this encounter Results * COVID-19 TEST [facility] PCR (11/03/2021 13:15 EDT) Swab 11/03/2021 13:1 5 EDT 11/04/2021 16:37 EDT Provider Outr Resulting Lab MICROBIOLOGY - GENERAL ORDERABLES [facility] [address] [place] [address] * COVID-19 TESTING (11/03/2021 13:15 EDT) COVID-19 rt-PCR Result Negative Negative 11/05/2021 11:[address] [facility] Comment: This test has not been FDA cleared or approved. This test has been authorized by FDA under an EUA for use by authorized laboratories. This test has been authorized only for detection of nucleic acid from 2019-nCoV, not for any other viruses or pathogens. This test is only authorized for the duration of the declaration that circumstances exist justifying the authorization of emergency use of in vitro diagnostic tests for detection and/or diagnosis of 2019-nCoV under section 564(b)(1) of Act, 21 U.S.C ?? 360bbb-3(b) (1), unless the authorization is terminated or revoked sooner. Negative results do not preclude 2019-nCoV infection and should not be used as the sole basis for treatment or other patient management decisions. Negative results must be combined with clinical observations, patient history, and epidemiological information. Testing was performed using the nasreen SARS-CoV-2 assay ([employer] on the Nasreen 6800 System Performing Lab Nasreen 6800 [facility] 11/05/2021 11:[address] [facility] Swab 11/03/2021 13:1 5 EDT 11/04/2021 16:37 EDT Provider Outr Resulting Lab MICROBIOLOGY - GENERAL ORDERABLES [facility] [address] [place] [address] documented in this encounter Visit Diagnoses Not on filedocumented in this encounter Care Teams Instructor Watch Assembly Relationship Specialty Start Date End Date Lynne Ramírez FNP [address] [place] [address] PCP - General 03/12/19 09/04/23 Kyaw Ahn RPA [address] [facility] [address] [place] [address] [id number] PCP - General Family Medicine - Primary Care 09/05/23 Mariaelena Garces NP [address] [place] [address] [address] [place] [address] Nurse Practitioner Endocrinology, Diabetes and Metabolism 07/20/21 documented as of this encounter
--- OUTSIDE RECORDS SUMMARY | 2024-02-03 01:32 | XMS_ITS | Encounter Summary ---
Author Organization [facility] Address [address] [place] [address] Care Team Providers Care Loom Control Chain Builder Name Role Phone Unknown, Provider MD Primary Care Provider [phone] Encounter Details Date Type Department Care Team (Late st Contact Info) Description 07/04/2013 Results Only [facility] Laboratory Services - [facility] ([facility] [address] [place], [place] [address] Devin Hawkins MD [address] [place] [id number] Social History Tobacco Use Types Packs/Day Years Used Date Smoking Tobacco: Never Assessed Sex and Gender Information Value Date Recorded Sex Assigned at Not on file Gender Identity Female 06/15/2021 12:28 EST Sexual Orientation Not on file documented as of this encounter Plan of Treatment Upcoming Encounters Date Type Department Care Team (Late st Contact Info) Description 02/07/2024 11:30 EDT Office Visit [facility] Endocrinology [address] [place] [address] Brenna Carmona MD [address] [facility] [address] [place] [phone] documented as of this encounter Procedures Procedure Name Priority Date/Time Associated Diagnosis Comments SURGICAL PATHOLOGY Routine 07/04/2013 15 :22 EST documented in this encounter Results * SURGICAL PATHOLOGY (07/04/2013 15:22 EST) Pathology Report: SURGICAL PATHOLOGY REPORT Reports generated via electronic interface contain original data; however they are lacking the format of the original report. Caution should be taken when reading/interpreting unformatted reports. Name: ? VANESA COOPER ? Accession #: ? [id number] ? : ? 1965 (Age: 48) ??F ? Collect Date: ? 07/04/2013 ? Location: ? [facility] ? Receive Date: ? 07/05/2013 ? Provider: DEVIN HAWKINS MD Copy to: ? Final Pathologic Diagnosis: TONGUE, RIGHT LATERAL LESION (ANTERIOR), BIOPSY: - ??Epithelial hyperplasia with mild dysplasia. - ??Submucosal reactive changes. Comment: ? Cyber Special Agent sections of this case were reviewed at the intradepartmental consultation conference. Sections and old slides also reviewed with Dr. Mccabe ?? Document reviewed and electronically signed by: MARK CORTÉS MD Report ??Date: 07/09/2013 15:21 By the signature above, the attending physician certifies that he/she has personally conducted a gross and/or microscopic examination of the described specimens and rendered or confirmed the above diagnosis. Specimen(s) Received: Excisional biopsy tongue Clinical History: R chronic tongue lesion, ant one-third lateral aspect; smoker; previous bx c/w papilloma Gross Description: ? Received in formalin labelled with proper patient identification (initials N, E) and right lateral tongue lesion anterior is a shelton-white unoriented 0.6 x 0.6 cm portion of mucosa excised to a depth of 0.2 cm. ??There is an eccentric shelton-brown 0.3 x 0.3 x 0.1 cm flat ulcerative lesion. ??The specimen is inked, serially sectioned, and is entirely submitted, with the central sections as 1 and the tips, en face, as 2. Kelli Riddle 07/05/2013 03:35 PM End of Report NICOL COLLIER 07/04/2013 15:2 2 EST 07/05/2013 15:22 EST Devin Hawkins MD PATHOLOGY ORDERABLES Performing Organization Address City/State/[facility] Co de Phone Number NICOL COLLIER [address] [place] [address] documented in this encounter Visit Diagnoses Not on filedocumented in this encounter Care Teams Loom Control Chain Builder Relationship Specialty Start Date End Date Unknown, Provider, PCP - General 03/30/13 03/11/19 documented as of this encounter
--- OUTSIDE RECORDS SUMMARY | 2024-02-03 01:32 | XMS_ITS | Encounter Summary ---
Author Organization [facility] Address [address] [place] [address] Care Team Providers Care Product Accountant Name Role Phone Lynne Ramírez JAVID Primary Care Provider [phone] Mariaelena Garces URGENT CARE PHYSICIAN Unavailable [phone] Reason for Visit * Reason Comments Thyroid Problem Encounter Details Date Type Department Care Team (Late st Contact Info) Description 01/27/2022 8:00 EDT Telemedicine [facility] Endocrinology [address] [place] [address] Brenna Darnell MD [address] [facility] [address] [place] [address] Hypothyroidism, postablative (Primary Dx); Medication management Social History Tobacco Use Types Packs/Day Years [...] Sign Reading Time Taken Comments Blood Pressure - - Pulse - - Temperature - - Respiratory Rate - - Oxygen Saturation - - Inhaled Oxygen Concentration - - Weight 181.4 kg (400 lb) 01/27/2022 0754 EDT Height 167.6 cm (5' 6) 01/27/2022 0754 EDT Body Mass Index 64.56 01/27/2022 0754 EDT documented in this encounter Functional Status Functional [...] Start Date End Da te levothyroxine (SYNTHROID) 200 mcg tablet Take 1 Tablet by mouth daily. Branded name necessary 90 Tablet 2 01/27/2022 05/19/2022 documented in this encounter Progress Notes * Charlene Ha RN - 01/27/2022 0800 EDT Hypo TSH ordered Message sent Letter mailed * Brenna Pope MD - 01/27/2022 0800 EDT [facility] Video Visit Today's visit was provided through telemedicine video conferencing: zoom The location of the patient: Home The location of the provider: Home office Verbal consent: The concept of ???Telemedicine?? has been described to the patient.Patient has been informed of the anticipated benefits and possible risks. Patient understands the information provided regarding telemedicine, has had the opportunity to ask questions about this information, and all questions have been answered to patient???s satisfaction. Patient consents for the use of telemedicine in his/her medical care and authorizes the transmission of any relevant medical information to providers and their staff involved in patient???s medical or mental health care. Verbal consent obtained by myself or auxiliary staff: yes. Subjective: Chief Complaint(s): Thyroid Problem HPI: Vanesa is a 56 y/o woman presented to clinic using zoom for follow up for hx of thyroid cancer and hypothyroidism. Last seen in Jul. Due to TSH variability, I suggested to try branded name medication and seems she improved and absorbed the drug better. In : TSH 8.8, she was advised to add 12.5 of Synthroid daily in addition to 200 mcg a day. She is also taking T3 5 mcg 3 days a week. She feels this did not make a difference. Says taking pill on empty stomach, waits at least 30 min to eat breakfast and take pills. Not very mobile. 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 She was rendered hypothyroid after that. She takes 200 mcg of generic levothyroxine, has 100% adherence, takes it with the rest of pills. No family history of thyroid disease. She smokes cigarettes. Weight stable I have reviewed patient's tobacco history: reports that she has been smoking cigarettes. She has a 6.25 pack-year smoking history. She has never used smokeless tobacco. I have reviewed current problem list and current medications. ROS: ROS Stated above Objective: Examination: Home Vitals: Ht 167.6 cm (66) Wt (!) 181.4 kg (400 lb) LMP 05/22/1989 BMI 64.56 kg/m?? Pertinent exam findings: appears well, non-labored breathing, no rash on visible skin and mood and affect appropriate Data reviewed with patient: most recent labs, prior endo note Assessment & Plan: 1. Hypothyroidism, postablative TSH TSH 2. Medication management TSH Hypothyroidism: in the last 2 months her TSH went from 8.8 to 1 with the addition of 12.5 mcg of branded name Synthroid. It seems that TSH dropped to fast and I will adjust her dose a little bit to avoid over-replacement. As T3 did not help her symptoms, I have advised to stop T3. Continue on branded name Syntroid 212.5 mcg a day. Repeat TSH around Sep 12 and before apt. Recheck TG tumor marker in 2024. Advise to exercise. Prescription sent to pharmacy. The following individuals and their role did participate in today's encounter visit: Provider: Brenna Jain MD Patient Electronically signed by Brenna Jain MD I spent a total of 30 minutes on the date of this encounter meeting with the patient and reviewing documentation/coordinating care as described in the above note. No procedures were performed at the time of the visit. documented in this encounter Plan of Treatment Upcoming Encounters Date Type Department Care Team (Late st Contact Info) Description 02/07/2024 11:30 EDT Office Visit [facility] Endocrinology [address] [place] [address] Brenna Carmona MD [address] [place] [address] [place] [phone] documented as of this encounter Visit Diagnoses Diagnosis Hypothyroidism, postablative- Primary Other postablative hypothyroidism Medication management Encounter for long-term (current) use of other medications documented in this encounter Discontinued Medications Medication Sig Discontinue Reason Start Date End Da te levothyroxine (SYNTHROID) 200 mcg tablet every 24 hours. Duplicate Therapy 01/27/2022 liothyronine (CYTOMEL) 5 mcg tablet Take 1 tablet Tuesday, Tue, Tuesday. 12/16/2021 01/27/2022 levothyroxine (SYNTHROID) 200 mcg tablet Take 1 Tablet by mouth daily. Branded name necessary Reorder 12/16/2021 01/27/2022 documented as of this encounter Historical Medications * This list may reflect changes made after this encounter. Medication Sig Dispensed Refills Start Date End Date b complex vitamins capsule vitamin B complex capsule Take 1 capsule every week by oral route. added in this encounter Care Teams Product Accountant Relationship Specialty Start Date End Date Lynne Ramí[place] [address] PCP - General 03/12/19 09/04/23 Mariaelena Garces NP [address] [facility] [address] [place] [phone] Nurse Practitioner Endocrinology, Diabetes and Metabolism 07/20/21 documented as of this encounter
--- OUTSIDE RECORDS SUMMARY | 2024-02-03 01:32 | XMS_ITS | Encounter Summary ---
Author Organization [facility] Address [address] [place] [address] Care Team Providers Care Support Merchandiser Name Role Phone Lynne Ramírez JAVID Primary Care Provider [phone] Mariaelena Garces REPRODUCTION ARTIST Unavailable [phone] Kyaw Ahn RPA Primary Care Provider [phone] Encounter Details Date Type Department Care Team (Late st Contact Info) Description 03/18/2020 Lab Requisition [facility] Pathology & Laboratory Medicine - [facility] [address] [place] [address] Outr Resulting Lab, Provider Social History Tobacco Use Types Packs/Day Years Used Date Smoking Tobacco: Some Days Cigarettes 0.3 25 Smokeless Tobacco: Never Interpersonal Safety Answer Date Record ed Physically [...] Info) Description 02/07/2024 11:30 EDT Office Visit [facility] Endocrinology [address] [place], [place] [phone] Brenna Carmona MD [address] [facility] [address] [place] [address] documented as of this encounter Procedures Procedure Name Priority Date/Time Associated Diagnosis Comments ANTI THYROGLOBULIN Routine 03/17/2020 9:51 EDT documented in this encounter Results * ANTI THYROGLOBULIN (03/17/2020 9:51 EDT) Anti-Thyroglob ulin <15 <=60 U/mL 03/19/2020 12:05 EDT [facility] Blood VENOUS BLOOD / Unknown 03/17/2020 9:51 EDT 03/18/2020 21:10 EDT Provider Outr Resulting Lab CHEMISTRY & BLOOD GAS ORDERABLES [facility] [address] [place] [address] documented in this encounter Visit Diagnoses Not on filedocumented in this encounter Care Teams Support Merchandiser Relationship Specialty Start Date End Date Lynne Ramírez FNP [address] [place] [id number] PCP - General 03/12/19 09/04/23 Kyaw Ahn RPA [address] [place] [address] [address] [place], [place] [id number] PCP - General Family Medicine - Primary Care 09/05/23 Mariaelena Garces NP [address] [facility] [address] [place] [phone] Nurse Practitioner Endocrinology, Diabetes and Metabolism 07/20/21 documented as of this encounter
--- OUTSIDE RECORDS SUMMARY | 2024-02-03 01:32 | XMS_ITS | Encounter Summary ---
Author Organization [facility] Address [address] [place] [address] Care Team Providers Care Acid Cutter Name Role Phone Mariaelena Garces QUARTER INSPECTOR Unavailable [phone] Kyaw Ahn RPA Primary Care Provider [phone] Encounter Details Date Type Department Care Team (Late st Contact Info) Description 09/05/2023 Orders Only [facility] Endocrinology [address] [place], [place] [phone] Brenna Carmona MD [employer] [address] [place] [address] Social History Tobacco Use Types Packs/Day Years [...] 200 mcg every day) 12 Tablet 3 09/05/2023 12/26/2023 documented in this encounter Plan of Treatment Upcoming Encounters Date Type Department Care Team (Late st Contact Info) Description 02/07/2024 11:30 EDT Office Visit [facility] Endocrinology [address] [place] [address] Brenna Carmona MD [address] [facility] [address] [place] [phone] documented as of this encounter Visit Diagnoses Not on filedocumented in this encounter Care Teams Acid Cutter Relationship Specialty Start Date End Date Kyaw Ahn RPA [address] [facility] [address] [place] [address] PCP - General Family Medicine - Primary Care 09/05/23 Mariaelena Garces NP [address] [facility] [address] [place] [phone] Nurse Practitioner Endocrinology, Diabetes and Metabolism 07/20/21 documented as of this encounter
--- OUTSIDE RECORDS SUMMARY | 2024-02-03 01:32 | XMS_ITS | Encounter Summary ---
Author Organization [facility] Address [address] [place] [address] Care Team Providers Care Hot Head Machine Operator Name Role Phone Unknown, Provider Primary Care Provider [phone] Encounter Details Date Type Department Care Team (Latest Contact Info) Description 07/04/2013 9:26 EST - 07/04/2013 23:59 EST Hospital Encounter [facility]- [address] [address] Unknown, ProviderMD Discharge Disposition: Home or Self Care Social History Tobacco Use Types Packs/Day Years Used Date Smoking Tobacco: Never Assessed Sex and Gender Information Value Date Recorded Sex Assigned at Not on file Gender Identity Female 06/15/2021 12:28 EST Sexual Orientation Not on file documented as of this encounter Discharge Disposition Disposition Code Departure Means Destination Home or Self Fpc documented in this encounter Plan of Treatment Upcoming Encounters Date Type Department Care Team (Late st Contact Info) Description 02/07/2024 11:30 EDT Office Visit [facility] Endocrinology [address] [place] [address] Brenna Carmona MD [address] [facility] [address] [place] [address] documented as of this encounter Visit Diagnoses Not on filedocumented in this encounter Care Teams Hot Head Machine Operator Relationship Specialty Start Date End Date Unknown, ProviderMD PCP - General 03/30/13 03/11/19 documented as of this encounter
--- OUTSIDE RECORDS SUMMARY | 2024-02-03 01:32 | XMS_ITS | Encounter Summary ---
Author Organization [facility] Address [address] [place] [address] Care Team Providers Care Certified Procedural Coder Name Role Phone Lynne Ramírez JAVID Primary Care Provider [phone] Reason for Visit * Reason Comments New Patient Visit Encounter Details Date Type Department Care Team (Latest Contact Info) Description 07/28/2020 11:30 EST Telemedicine [facility] Endocrinology [address] [place] [address] Quan Darnell MD [address] [facility] [address] [place] [address] Postablative hypothyroidism (Primary Dx); Thyroid cancer ([facility]) Social History Tobacco Use Types Packs/Day Years [...] - Inhaled Oxygen Concentration - - Weight 176.4 kg (389 lb) 07/28/2020 1116 EST Height - - Body Mass Index 64.24 05/22/2019 1440 EST documented in this encounter [...] Yes 05/22/2019 documented as of this encounter Progress Notes * Quan Pope MD - 07/28/2020 1130 EST [facility] Telephone Visit Subjective: Chief Complaint(s): New Patient Visit HPI: Vanesa joined phone visit as the zoom javid did not work. She is meeting me to discuss hypothyroidism and thyroid cancer as the request of her PCP Lynne Ramírez. 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 She was rendered hypothyroid after that. She takes 200 mcg of generic levothyroxine, has 100% adherence, takes it with the rest of pills. Last TSH done in Feb was 0.33. She reports fatigue, brittle nails, dry skin and mental fog. No family history of thyroid disease. She smokes cigarettes. Weight stable. I have reviewed patient's tobacco history: reports that she has been smoking cigarettes. She has a 6.25 pack-year smoking history. She has never used smokeless tobacco. I have reviewed current problem list and current medications. ROS: Review of Systems Constitutional: Positive for malaise/fatigue. Gastrointestinal: Positive for constipation and diarrhea. Negative for nausea. Skin: Dry skin Brittle nails Neurological: Brain fog Objective: Examination: Home Vitals: Wt (!) 176.4 kg (389 lb) LMP 05/22/1989 BMI 64.24 kg/m?? Pertinent exam findings patient can observe: none Data reviewed with patient: labs in scanned documents as well as note from her PCP. Assessment & Plan: 1. Postablative hypothyroidism 2. Thyroid cancer ([facility]) Hypothyroidism: based on last labs appeared over repalced. Advise to repeat TSH. If TSH is low, will recommend adjustment and change to brand name. If TSH is normal, will change to brand name, if brand name non affordable, we can try adding T3. As tumor Marker has been negative and thyroid cancer is >30 years ago, no need to check TG tumormarker yearly, we can check every 3-5 years. Patient agreed with plan. Patient initiated phone contact with the office Yes, She is a new patient, E/M provided within previous 7 days for same Assessment No, Anticipate E/M service within 24hrs or next available urgent appointment No, Time spent in medical discussion 11-20. documented in this encounter Miscellaneous Notes * Addendum Note - Quan Pope MD - 07/28/2020 1130 ESTAddended by: QUAN POPE on: 07/28/2020 12:32 Modules accepted: Orders documented in this encounter Plan of Treatment Upcoming Encounters Date Type Department Care Team (Late st Contact Info) Description 02/07/2024 11:30 EDT Office Visit [facility] Endocrinology [address] [place] [address] Quan Carmona MD [address] [place] [phone] Scheduled Orders Name Type Priority Associated Diagnoses Orde r Schedule TSH Lab Routine Postablative hypothyroidism Ordered: 07/28/2020 documented as of this encounter Visit Diagnoses Diagnosis Postablative hypothyroidism- Primary Other postablative hypothyroidism Thyroid cancer (HCC-CMS) Malignant neoplasm of thyroid gland documented in this encounter Discontinued Medications Medication Sig Discontinue Reason Start Date End Da te APPLE CIDER VINEGAR ORAL Take by mouth at bedtime. Therapy completed 07/28/2020 ARIPiprazole (ABILIFY) 5 mg tablet Take 5 mg by mouth daily. Therapy completed 07/28/2020 B Complex Vitamins tablet Take by mouth once a week. Alternate therapy 07/28/2020 naproxen sodium (ANAPROX) 550 mg tablet Take 550 mg by mouth. Therapy completed 07/28/2020 piroxicam (FELDENE) 10 mg capsule Take 20 mg by mouth daily. Therapy completed 07/28/2020 turmeric (CURCUMIN MISC) by misc (non-drug; combo route) route at bedtime. Therapy completed 07/28/2020 documented as of this encounter Historical Medications * This list may reflect changes made after this encounter. Medication Sig Dispensed Refills Start Date End Date Psyllium Husk 0.52 gram capsule Take 4 Tabs by mouth daily. Qmnvt-5-EPZ-EPA-Fish Oil 1,200 (144-216) mg capsule Take 2 Caps by mouth. folic acid/multivit-min/lutein (CENTRUM SILVER ORAL) Take 1 Tab by mouth. piroxicam (FELDENE) 10 mg capsule Take 20 mg by mouth daily. 07/28/2020 naproxen sodium (ANAPROX) 550 mg tablet Take 550 mg by mouth. 07/28/2020 ARIPiprazole (ABILIFY) 5 mg tablet Take 5 mg by mouth daily. 07/28/2020 added in this encounter Care Teams Certified Procedural Coder Relationship Specialty Start Date End Date Lynne Ramírez [place] [address] PCP - General 03/12/19 09/04/23 documented as of this encounter
--- OUTSIDE RECORDS SUMMARY | 2024-02-03 01:32 | XMS_ITS | Encounter Summary ---
Author Organization [facility] Address [address] [place] [address] Care Team Providers Care Bowling Floor Manager Name Role Phone Unavailable Primary Care Provider Unavailabl e Encounter Details Date Type Department Care Team (Late st Contact Info) Description 10/16/2003 Results Only [facility] [address] [place], [place] [phone] William Latif MD [address] [place] [address] Social History Tobacco Use Types Packs/Day Years Used Date Smoking Tobacco: Never Assessed Sex and Gender Information Value Date Recorded Sex Assigned at Not on file Gender Identity Female 06/15/2021 12:28 EST Sexual Orientation Not on file documented as of this encounter Plan of Treatment Upcoming Encounters Date Type Department Care Team (Late st Contact Info) Description 02/07/2024 11:30 EDT Office Visit [facility] Endocrinology [address] [place] [address] Brenna Carmona MD [address] [place] [phone] documented as of this encounter Procedures Procedure Name Priority Date/Time Associated Diagnosis Comments SURGICAL PATHOLOGY Routine 10/16/2003 0:00 EDT documented in this encounter Results * SURGICAL PATHOLOGY (10/16/2003 0:00 EDT) Pathology Report: SURGICAL PATHOLOGY REPORT Reports generated via electronic interface contain original data; however they are lacking the format of the original report. Caution should be taken when reading/interpreti ng unformatted reports. Name: ? VANESA COOPER ? Accession #: ? [id number] ? : ? 1965 (Age: 38) ??F ? Collect Date: ? 10/16/2003 ? Location: ? [facility] ? Receive Date: ? 10/16/2003 ? Provider: WILLIAM LATIF MD Copy to: ANUSHA KAUR LADLE REPAIRER ? Final Pathologic Diagnosis: ? Gallbladder, cholecystectomy: 1. ?Mild chronic cholecystitis. 2. ?Cholelithiasis. Document reviewed and electronically signed by: Ignacio German MD Report ??Date: 10/18/2003 16:03 By the signature above, the attending physician certifies that he/she has personally conducted a gross and/or microscopic examination of the described specimens and rendered or confirmed the above diagnosis. Specimen(s) Received: ? Gallbladder Clinical History: ? Cholelithiasis, cholecystitis Gross Description: ? Received in formalin labelled Janes and gallbladder is a gallbladder which measures 10.0 x 3.0 x 2.8 cm. ??The external surface is shelton-maher to focally shelton-maher with half of the surface covered by serosa. ??The gallbladder is opened to reveal a moderate degree of shelton-maher thin bile. ??There is a single ovoid 2.8 x 1.8 x 1.6 cm brown-green hard cholelith. ??The gallbladder mucosa is tpc-bocie-vzbsr and velvety. ??Serial sectioning reveals no masses or nodules with a wall thickness of 0.2 cm. ??The cystic duct is identified with a staple clip at one end, with no cystic duct lymph node identified. ??Three bilingual sales representative sections of gallbladder are submitted in one cassette. ??(Dr. Bassett)/[facility] End of Report NICOL COLLIER 10/16/2003 10/16/2003 15: 01 EDT William Latif MD PATHOLOGY ORDERABLE [facility] [address] [place] [address] documented in this encounter Visit Diagnoses Not on filedocumented in this encounter
--- OUTSIDE RECORDS SUMMARY | 2024-02-03 01:32 | XMS_ITS | Encounter Summary ---
Author Organization [facility] Address [address] [place] [address] Care Team Providers Care Plant Buyer Name Role Phone Lynne Ramírez JAVID Primary Care Provider [phone] Mariaelena Garces CITY ALDERMAN Unavailable [phone] Reason for Visit * Reason Onset Date Comments Medications Refill 12/16/2021 Encounter Details Date Type Department Care Team (Late st Contact Info) Description 12/16/2021 Refill [facility] Endocrinology [address] [place] [address] Charlene Ha RN Medications Refill Social History Tobacco Use Types [...] Dispensed Refills Start Date End Da te liothyronine (CYTOMEL) 5 mcg tablet Take 1 tablet Tuesday, Tue, Tuesday. 48 Tablet 12/16/2021 01/27/2022 levothyroxine (SYNTHROID) 200 mcg tablet Take 1 Tablet by mouth daily. Branded name necessary 90 Tablet 2 12/16/2021 01/27/2022 documented in this encounter Miscellaneous Notes * Telephone Encounter - Charlene Ha RN - 12/16/2021 1029 EDT Prescription sent to pharmacy per Dr Darnell's orders. documented in this encounter Plan of Treatment Upcoming Encounters Date Type Department Care Team (Late st Contact Info) Description 02/07/2024 11:30 EDT Office Visit [facility] Endocrinology [address] [place] [address] Brenna Carmona MD [address] [place] [address] [place] [phone] documented as of this encounter Visit Diagnoses Not on filedocumented in this encounter Discontinued Medications Medication Sig Discontinue Reason Start Date End Da te levothyroxine (SYNTHROID) 200 mcg tablet Take 1 Tablet by mouth daily. Branded name necessary Reorder 03/23/2021 12/16/2021 liothyronine (CYTOMEL) 5 mcg tablet Take 1 tablet Tuesday, Tue, Tuesday. Reorder 09/25/2021 12/16/2021 documented as of this encounter Care Teams Plant Buyer Relationship Specialty Start Date End Date Lynne Ramírez [place] [address] PCP - General 03/12/19 09/04/23 Mariaelena Garces NP [address] [facility] [address] [place] [phone] Nurse Practitioner Endocrinology, Diabetes and Metabolism 07/20/21 documented as of this encounter
--- OUTSIDE RECORDS SUMMARY | 2024-02-03 01:32 | XMS_ITS | Clinical Summary ---
Author Organization [facility] Address [address] [place] [address] Care Team Providers Care Signal System Testing Maintainer Name Role Phone Mariaelena Garces HOTEL BAGGAGE HANDLER Unavailable [phone] Kyaw Ahn RPA Primary Care Provider [phone] Allergies Active Allergy Reactions Criticality Noted Date Comments Diclofenac Other (See Comments) High 12/19/2017 Kidney failure Gabapentin Other (See Comments) 05/22/2019 Unsure Nsaids (Non-Steroidal Anti-Inflammatory Drug) Other (See Comments) High 05/22/2019 Kidney failure Medications Medication Sig Dispensed Refills Start Date End Date Status ALPRAZolam (XANAX XR) 3 mg XR tablet Take 1 Tablet by mouth 2 times daily. Active ALPRAZolam (XANAX) 1 mg tablet Take 1 Tablet by mouth as needed. Active clomipramine HCl (CLOMIPRAMINE ORAL) Take 200 mg by mouth at bedtime. Active Omeprazole 20 mg tablet,delayed release (DR/EC) Take by mouth daily. Active hydrOXYzine (ATARAX) 25 mg tablet Take 2 Tablets by mouth 3 times daily as needed (for headaches). Active acetaminophen (TYLENOL) 500 mg tablet Take 1 Tablet by mouth daily. 2 in am Active Magnesium 250 mg tablet Take 2 Caps by mouth daily. Active folic acid/multivit-min/price tein (CENTRUM SILVER ORAL) Take 1 Tab by mouth. Active Stwfy-5-BNB-EPA-Fish Oil 1,200 (144-216) mg capsule Take 2 Caps by mouth. Active Psyllium Husk 0.52 gram capsule Take 4 Tabs by mouth daily. Active b complex vitamins capsule vitamin B complex capsule Take 1 capsule every week by oral route. Active L.acid/L.casei/B.bif /B.ashley/FOS (PROBIOTIC BLEND ORAL) Take by mouth. Active naltrexone (REVIA) 50 mg tablet Take 0.5 Tablets by mouth 2 times daily. Active buPROPion (WELLBUTRIN SR) 100 mg SR tablet Take 1 Tablet by mouth 2 times daily. 07/29/2023 Active VITAMIN D3 25 mcg (1,000 unit) capsule Take 3 Capsules by mouth daily. 12/27/2022 Active SYNTHROID 200 mcg tablet TAKE ONE TABLET BY MOUTH EVERY DAY 90 Tablet 1 11/24/2023 Active levothyroxine (SYNTHROID) 25 mcg tablet Take one extra tablet of 25 mcg three times a week (she is to continue with 200 mcg every day) 12 Tablet 3 12/26/2023 Active Active Problems Problem Noted Date Diagnosed Date Postprocedural hypothyroidism 07/23/2021 Myopathy 01/26/2021 Osteoarthritis of both knees 01/26/2021 Tobacco dependence 04/22/2020 Liver lesion 04/22/2020 Fatigue 04/22/2020 Aneurysm ([facility]) 04/22/2020 History of thyroid cancer 04/22/2020 Stage 3 chronic kidney disease ([facility]) 017 Myofascial pain 09/07/2016 NSAID long-term use 09/07/2016 IFG (impaired fasting glucose) 11/12/2015 Hyperlipidemia, unspecified 11/12/2015 Prurigo nodularis 10/03/2015 History of nicotine dependence 03/21/2014 Pain in joint, lower leg 03/21/2014 Lumbosacral spondylosis without myelopathy 11/21 Spondylosis of lumbar spine 10/10/2013 Mechanical low back pain 09/12/2013 Sleep apnea 08/23/2013 Morbid obesity ([facility]) 08/23/2013 Depression 08/23/2013 Bilateral knee pain 08/23/2013 Panic disorder 02/28/2013 Encounters Date Type Department Care Team Description 12/26/2023 Refill [facility] Endocrinology [address] [place] [address] Samantha Mcguire, MORRIS Medications Refill 11/24/2023 Refill [facility] Endocrinology [address] [place] [address] Didrikson, Mariaelena M, HOTEL BAGGAGE HANDLER Medications Refill from Last 3 Months Immunizations Name Administration Dates Next Due Hepatitis B Vaccine Adult IM 03/15/2016,10/09/19 16,09/09/2015 Historical Hepatitis B Vaccine, Unspecified 02/25,10/07/2015 Historical Tetanus Diphtheri a Vaccine, Unspecified 12/31/2007 Influenza Vaccine =>3yo Split IM 04/20/2013 Influenza Vaccine =>3yo Spli t Preservative Free IM 05/17/2014 Influenza Vaccine Nasal 06/12/2012 Influenza Vaccine Nasal Quad (FLUMIST) 0.2 mL intranasal (2-49 yrs) 06/12/2012 Influenza Vaccine Quad (AFLU MICHAEL) PF 0.5 ml IM (3 yrs+) 04/12/2016,05/17/2014,04/20/2013 Influenza Vaccine Quad (FLUZ ONE) MDV w/preserv 0.5 ml IM (6 mos+) 04/20/2013 Pneumococcal Polysaccharide (PPSV23) Vaccine (PNEUMOVAX-23) =>2YO SQ/IM 01/20/2010 Td (Adult) 5 Lf Vaccine (TEN IVAC) Preservative Free =>7yo IM 12/31/2007 Tdap Vaccine =>7YO IM 12/01/2018,01/10/2008 Surgical History Surgery Date Site/Laterality Comments THYROIDECTOMY partial lobectomy about age 25 CHOLECYSTECTOMY HERNIA REPAIR Family History Medical History Relation Comments Thyroid Disease Neg Hx Social History Tobacco Use Types Packs/Day Years Used Date Smoking Tobacco: Every Day Cigarettes 0.3 25 Smokeless Tobacco: Never Tobacco Cessation:Ready to Q uit: Not Asked; Counseling Given: Not Answered Alcohol Use Standard Drinks/Week Comments Not Currently 0 (1 standard drink = 0.6 oz pur e alcohol) Interpersonal Safety Answer Date Record ed Physically Hurt Never 01/27/2020 Verbally Threaten Not on file 01/27/2020 Sex and Gender Information Value Date Recorded Sex Assigned at Not on file Gender Identity Female 06/15/2021 12:28 EST Sexual Orientation Not on file Obstetrics History Last Filed Vital Signs Vital Sign Reading Time Taken Comments Blood Pressure 128/78 05/22/2019 1440 EST Pulse 119 05/22/2019 1440 EST Temperature - - Respiratory Rate - - Oxygen Saturation - - Inhaled Oxygen Concentration - - Weight 175.5 kg (387 lb) 08/02/2023 1453 EST Height 167.6 cm (5' 6) 05/19/2022 0819 EST Body Mass Index 62.46 05/19/2022 0819 EST Plan of Treatment Upcoming Encounters Date Type Department Care Team (Late st Contact Info) Description 02/07/2024 11:30 EDT Office Visit [facility] Endocrinology [address] [place] [address] Brenna Carmona MD [employer] [address] [place] [address] Health Maintenance Due Date Last Done Comments Hepatitis C Screen 1965 Pneumococcal Immunization (2 of 2 - PCV) 01/20/2011 01/20/2010 RSV Immunization ( o r 60+ Years) (1 - 1-dose 60+ series) 2023 COVID-19 Vaccine Completed 07/01/2023, 01/2022, 10/19/2021, Additional history exists Care Teams Signal System Testing Maintainer Relationship Specialty Start Date End Date Kyaw Ahn RPA [address] [place] [address] PCP - General Family Medicine - Primary Care 09/05/23 Mariaelena Garces HOTEL BAGGAGE HANDLER [address] [place] [phone] Nurse Practitioner Endocrinology, Diabetes and Metabolism 07/20/21
--- OUTSIDE RECORDS SUMMARY | 2024-02-03 01:32 | XMS_ITS | Encounter Summary ---
Author Organization [facility] Address [address] [place] [address] Care Team Providers Care Cat Scan Tech Name Role Phone Lynne Ramírez JAVID Primary Care Provider [phone] Reason for Visit * Reason Onset Date Comments Results 08/25/2020 TSH Encounter Details Date Type Department Care Team (Late st Contact Info) Description 08/25/2020 Telephone [facility] Endocrinology [address] [place] [address] Brenna Darnell MD [address] [facility] [address] [place] [address] Results (TSH) Social History Tobacco Use Types Packs/Day Years [...] levothyroxine (SYNTHROID) 200 mcg tablet Take 1 Tab by mouth daily. Branded name necessary 90 Tab 1 08/25/2020 01/26/2021 documented in this encounter Miscellaneous Notes * Telephone Encounter - Brenna Pope MD - 08/25/2020 1319 EST Portal message: I was on vacation. I just reviewed your TSH level and is normal. 2.3 As we discussed, will send brand name first, if that is approved and is not too expensive, repeat your levels in 3 months off any vitamins for at least 3 days. If that is too expensive let me know. Branded name necessary: patient is having issues with generic absorption of levothyroxine and fluctuating TSH levels. documented in this encounter Plan of Treatment Upcoming Encounters Date Type Department Care Team (Late st Contact Info) Description 02/07/2024 11:30 EDT Office Visit [facility] Endocrinology [address] [place] [address] Brenna Carmona MD [address] [place] [phone] documented as of this encounter Visit Diagnoses Not on filedocumented in this encounter Discontinued Medications Medication Sig Discontinue Reason Start Date End Da te levothyroxine (SYNTHROID) 200 mcg tablet Take 200 mcg by mouth daily. Reorder 08/25/2020 documented as of this encounter Care Teams Cat Scan Tech Relationship Specialty Start Date End Date Lynne Ramírez FNP [facility] [place] [address] PCP - General 03/12/19 09/04/23 documented as of this encounter
--- OUTSIDE RECORDS SUMMARY | 2024-02-03 01:32 | XMS_ITS | Encounter Summary ---
Author Organization [facility] Address [address] [place] [address] Care Team Providers Care Forest Supervisor Name Role Phone Lynne Ramírez JAVID Primary Care Provider [phone] Mariaelena Garces IMPROVEMENT MANAGER Unavailable [phone] Kyaw Ahn RPA Primary Care Provider [phone] Encounter Details Date Type Department Care Team (Late st Contact Info) Description 10/20/2021 Lab Requisition [facility] Pathology & Laboratory Medicine - [facility] [address] [place] [address] Outr Resulting Lab, Provider Social History Tobacco [...] Info) Description 02/07/2024 11:30 EDT Office Visit [facility] Endocrinology [address] [place] [address] Brenna Carmona MD [address] [place] [phone] documented as of this encounter Procedures Procedure Name Priority Date/Time Associated Diagnosis Comments HOLD SST Today 10/19/2021 9:21 EDT HOLD SST Today 10/19/2021 9:21 EDT LYME AB Today 10/19/2021 9:21 EDT ANTI THYROGLOBULIN Today 10/19/2021 9:21 EDT T3, TOTAL Today 10/19/2021 9:21 EDT documented in this encounter Results * HOLD SST (10/19/2021 9:21 EDT) Hold Hold 10/20/2021 18:01 EDT [facility] Blood VENOUS BLOOD / Unknown 10/19/2021 9:21 EDT 10/20/2021 16:56 EDT Provider Outr Resulting Lab LAB INFO SER VICE AND SUPPORT & PHONE RESULT [facility] [address] [place] [address] * HOLD SST (10/19/2021 9:21 EDT) Hold Hold 10/20/2021 18:01 EDT [facility] Blood VENOUS BLOOD / Unknown 10/19/2021 9:21 EDT 10/20/2021 16:56 EDT Provider Outr Resulting Lab LAB INFO SER VICE AND SUPPORT & PHONE RESULT Performing Organization Address City/[facility]/ZIP Co de Phone Number [facility] [address] [place] [address] * T3, TOTAL (10/19/2021 9:21 EDT) [facility] T3, Total 133 97 - 169 ng/dL 10/20/2021 17:47 EDT [facility] Blood VENOUS BLOOD / Unknown 10/19/2021 9:21 EDT 10/20/2021 16:53 EDT Provider Outr Resulting Lab CHEMISTRY & BLOOD GAS ORDERABLES Performing Organization Address [facility]/ZIP Co de Phone Number [facility] [address] [place] [address] * ANTI THYROGLOBULIN (10/19/2021 9:21 EDT) [facility] Anti-Thyroglob ulin <15 <=60 U/mL 10/20/2021 20:16 EDT [facility] Blood VENOUS BLOOD / Unknown 10/19/2021 9:21 EDT 10/20/2021 16:53 EDT Provider Outr Resulting Lab CHEMISTRY & BLOOD GAS ORDERABLES Performing Organization Address City/[facility]/ZIP Co de Phone Number [facility] [address] [place] [address] * LYME AB (10/19/2021 9:21 EDT) [facility] Lyme Ab Negative Negative 10/21/2021 12:13 EDT [facility] Blood VENOUS BLOOD / Unknown 10/19/2021 9:21 EDT 10/20/2021 16:53 EDT Provider Outr Resulting Lab IMMUNOLOGY A ND SEROLOGY ORDERABLES [facility] [address] [place] [address] documented in this encounter Visit Diagnoses Not on filedocumented in this encounter Care Teams Forest Supervisor Relationship Specialty Start Date End Date Lynne Ramírez FNP [address] [facility], [place] [id number] PCP - General 03/12/19 09/04/23 Kyaw Ahn RPA [address] [facility] [address] [place] [address] PCP - General Family Medicine - Primary Care 09/05/23 Mariaelena Garces NP [address] [place] [phone] Nurse Practitioner Endocrinology, Diabetes and Metabolism 07/20/21 documented as of this encounter
--- OUTSIDE RECORDS SUMMARY | 2024-02-03 01:32 | XMS_ITS | Continuity of Care Document ---
Author Organization [place] [facility] Address [address] [place] [address] Assessment No assessment recorded. Plan of Treatment Reminders Order Date Submit Date Provider Last Modified By Organization Details Last Modified Time Details Appointments Follow Up 30 2023 11:30A M KYAW LOPEZ Not available Not available Not available Lab None recorded. Referral pain managemen t referral - Increasin g low back pain with history of good response to radiofreq uency ablation. The last in 2018. 2023 024 GERI Banerjee [address] , [address], [place], [address], 11/04/2023 14:50:30 Procedures None recorded. Surgeries None recorded. Imaging None recorded. Medication Orders None recorded. Patient TargetsNo targets recorded. Patient Instructions Encounter Date Encounter Id Patient Instructions Last Modified By Organization Details Last Modified Time 11/04/2023 [id number] Vanesa - we will refer you to the pain clinic to consider another RFA of your lower back. lorraine Not available 11/04/2023 10:32:18 Reason for Referral Physical Therapist Referral for Pain of right knee joint Right knee pain with Tightness of hamstring attachment at knee. Morbid obesity Referring Physician: [facility], Encounter Date: 07/01/2023 Home Health Referral for Imp aired mobility Referring Physician: [facility], Encounter Date: 07/04/2023 General Surgeon Referral for Screening for malignant neoplasm of colon positive cologuard 07/2023 Referring Physician: [facility], Encounter Date: 08/08/2023 Sleep Medicine Referral for [...] Physician: Family Cintia Menjivar, Encounter Date: 11/11/2023 Problems Name Status Onset Date Resolution Date Notes Provider Name and Address Organization Details Recorded Time Lumbosacral spondylosis without myelopathy Active 2017 Miltilevel degenerative changes on 2019 Open MRI without spinal stenosis. Good response to RFA 2017 and 2019. Problem Code: M47.817; Problem Code Type: ICD-10; [address], [place], [address] , [facility]. 4 12:15:39 Mixed hyperlipidemi a Active 201703/28/2020 - Comments only - Lynne Ramírez APRN - Elevated TGs, low HDL, acceptable LDL. Encouraged addition of healthy fats, reduction in carbs and sugars, increase in fiber intake. Will recheck in 6 months. Problem Code: E78.2; Problem Code Type: ICD-10; Not Available [facility] 3 04:17:37 Prurigo nodularis Active 201703/05/2019 - Comments only - Lynne Ramírez APRN - Use clobetasol cream BID PRN. Problem Code: L28.1; Problem Code Type: ICD-10; Not Available [facility] 3 04:17:37 Generalized anxiety disorder Active 201712/01/2018 - Comments only - Lynne Ramírez APRN - See above. Problem Code: F41.1; Problem Code Type: ICD-10; Not Available [facility] 3 04:17:37 Major depression, single episode Active 201705/12/2022 - Comments only - Lynne Ramírez APRN - Mood improved, enjoying new grandsons. Continues with regular therapy. Problem Code: F32.9; Problem Code Type: ICD-10; Not Available [facility] 3 04:17:37 Obstructive sleep apnea syndrome Active 201711/03/2021 - Comments only - Lynne Ramírez APRN - Sleep improved with new mask. Problem Code: G47.33; Problem Code Type: ICD-10; Not Available [facility] 3 04:17:38 Hypothyroidis m Active 201711/03/2022 - Comments only - Kyaw Lopez RPA - TSH drawn today. Follows with endocrinology . Status post radioactive iodine treatment for thyroid cancer. In her 20s. Problem Code: E03.9; Problem Code Type: ICD-10; Not Available [facility] 3 04:17:38 Body mass index 40+ - severely obese Active 201709/28/2021 - Comments only - Lynne Ramírez APRN - Challenging situation. Extreme obesity contributing to chronic back and joint pain, impairing mobility. Pt describes low-carb diet, encouraged to continue, as well as limit portions. Unable to exercise d/t chronic pain. Problem Code: Z68.44; Problem Code Type: ICD-10; Not Available [facility] 3 04:17:38 Idiopathic osteoarthriti s Active 201712/27/2017 - Comments only - Lynne Ramírez APRN - Pool therapy twice weekly, ambulation limited. Working towards lowering wt enough to have knee replacements. Problem Code: M17.0; Problem Code Type: ICD-10; Not Available [facility] 3 04:17:38 History of malignant neoplasm of thyroid Active 201709/28/2021 - Comments only - Lynne Ramírez APRN - Followed by [facility] end[facility]. Thyroid panel ordered. Problem Code: Z85.850; Problem Code Type: ICD-10; Not Available [facility] 3 04:17:38 Adult health examination Active 201705/12/2022 - Comments only - Lynne Ramírez APRN - Flu and covid vaccines given today, UTD with all other immunizations . Declines colonoscopy, UTD with mammogram. Problem Code: Z00.00; Problem Code Type: ICD-10; Not Available [facility] 3 04:17:38 Counseling Completed 201701/10/2018 12/27/2017 - Comments only - Lynne Ramírez APRN - Pt with multiple chronic issues. Mammogram ordered. Declines colonoscopy, given IFOB. Will need Td this year. No lab results rec'd from previous provider, will obtain from [facility] site. Problem Code: Z71.89; Problem Code Type: ICD-10; Not Available [facility] 3 04:17:38 Aneurysm Active 201701/18/2018 - Comments only - Minerva Jon - Consulted with neurology. Likely too small for surgery or concern. Patient very concerned, however, and would like MRI. Referred to [place] but may need to go to [facility] because of her size. Problem Code: I72.9; Problem Code Type: ICD-10; Not Available [facility] 3 04:17:39 Nicotine dependence Active 201911/03/2022 - Comments only - Kyaw Lopez RPA - She has been slowly weaning back. Now down to a third of a pack a day. She is motivated to quit altogether. Problem Code: F17.200; Problem Code Type: ICD-10; Not Available [facility] 3 04:17:39 Screening for malignant neoplasm of breast Active 2021 Problem Code: Z12.39; Problem Code Type: ICD-10; Not Available [facility] 3 04:17:39 Onychomycosis due to dermatophyte Active 202111/03/2021 - Comments only - Lynne Ramírez APRN - Referral to podiatry, per pt request. Problem Code: B35.1; Problem Code Type: ICD-10; Not Available [facility] 3 04:17:39 Dyspnea Active 202111/03/2022 - Comments only - Kyaw Jimy RPA - Recent evaluation with pulmonology. She had spirometry and is scheduled for methacholine challenge test. She uses her Advair inhaler twice daily routinely. Occasional use of rescue inhaler. Asthma as a child. Has follow-up with pulmonology. Problem Code: R06.02; Problem Code Type: ICD-10; Not Available [facility] 3 04:17:40 Chest pain Active 202111/03/2022 - Comments only - Kyaw Lopez RPA - Right flank pain for the past 2 months. No inciting injury or activity. She has had reassuring blood work and CT scans. No significant radiographic abnormality. The nature is most consistent with costochondrit is. Reassurance provided. Reviewed conservative measures. Moist heat. The discomfort has been improving. Problem Code: R07.9; Problem Code Type: ICD-10; Not Available [facility] 3 04:17:40 Pain of joint of knee Completed 201809/28/2021 Problem Code: M25.569; Problem Code Type: ICD-10; Not Available [facility] 3 04:17:40 Urgent desire to urinate Completed 201809/28/2021 Problem Code: R39.15; Problem Code Type: ICD-10; Not Available [facility] 3 04:17:40 Severe obesity Completed 201703/05/2019 Problem Code: E66.01; Problem Code Type: ICD-10; Not Available [facility] 3 04:17:40 Acute upper respiratory infection Completed 202105/04/2022 Problem Code: J06.9; Problem Code Type: ICD-10; Not Available [facility] 3 04:17:41 Exposure to sexually transmissible disorder Completed 201803/05/2019 Problem Code: Z20.2; Problem Code Type: ICD-10; Not Available [facility] 3 04:17:41 Hyperlipidemi a Completed 201703/23/2023 Problem Code: E78.5; Problem Code Type: ICD-10; Not Available [facility] 3 04:17:41 Screening for malignant neoplasm of colon Completed 201803/28/2020 Problem Code: Z12.11; Problem Code Type: ICD-10; Not Available [facility] 3 04:17:41 Pain in thoracic spine Completed 201809/28/2021 Problem Code: M54.9; Problem Code Type: ICD-10; Not Available [facility] 3 04:17:41 Impaired fasting glycemia Completed 201708/23/2019 Problem Code: R73.01; Problem Code Type: ICD-10; Not Available [facility] 3 04:17:41 Urinary tract infectious disease Completed 202009/28/2021 Problem Code: N39.0; Problem Code Type: ICD-10; Not Available [facility] 3 04:17:42 Retention of urine Completed 201809/28/2021 Problem Code: R33.9; Problem Code Type: ICD-10; Not Available [facility] 3 04:17:42 Altered bowel function Completed 201909/28/2021 Problem Code: R19.4; Problem Code Type: ICD-10; Not Available [facility] 3 04:17:42 Chronic kidney disease stage 3 Completed 201703/05/2019 Not Available [facility] 3 04:17:42 Problem Notes None recorded. Medical Equipment None Reported. Allergies Allergen ID Allergen Name Allergen Category Reaction Reaction Severity Criticality Documentation Date Start Date Code Code System Note Provider Name and Address Organization Details Recorded Time 91579 diclofena c medicatio n Not available Not available Not available 05/06/20232017 3355 RxNorm Ines Cruz RN null, [facility] 4 10:08:56 04155 gabapenti n medicatio n other mild low 11/04/2023 57901 RxNorm Fatig ue Ines Cruz RN null, [facility] 4 10:09:34 Medications Name Sig Start Date [...] puff as directed twice a day active lexi anderson. Patient state she no longer takes [...] a differen ce. She will discuss with puljyothi andesron.Gladys ent is unsure which dose she is [...] Updated DateTime 4 166.37 cm 63.5 kg/m2 174512. 4 g 98.1 [degF] 72 /min 123 mm[Hg] 82 mm[Hg] Ines Cruz RN [facility] 4 10:12:12 Social History Question Answer Notes LastModified by Organization Details LastModified Time Tobacco Smoking Status Current Every Day Smoker SABAS MCLAIN RN [facility], [facility] 07/01/2023 13:34:40 Do You Have An Advance [...] Do You Have A Medical Power Of Parquetry Floor Layer? No Information not available 07/01/2023 What Was The Date Of Your Most Recent Tobacco Screening? 11/04/2023 Information not available 11/04/2023 What Is Your Current Pack Years? [email or web address] rs Information not available 11/04/2023 What Is [...] Age Notes Father Family history of ac ely shoshone medical disorder emphysema Father Family history of alcoholism Father No family history of respiratory disease COPD Father Family history of diabetes mellitus type 1 Mother Family history of ac ely shoshone medical disorder [place] Mother Family history of he art failure Sister Family history of ac ely shoshone medical disorder lupus Medical History No medical history recorded. Gynecological HistoryNo gynecological history recorded. Obstetrics History GPAL:G 0 P 0 0 0 0 Immunizations Vaccine Type Date Status Provider Name and Address Organization Details Recorded Time Influenza, split virus, quadrivalent, PF 07/01/[address], [place], [address], [facility]. 07/01/2023 15:11:05 COVID-19, mRNA, LNP-S, PF, troy-sucrose, 30 mcg/0.3 mL 07/01/[address], [place], [address], [facility]. 07/01/2023 15:11:05 Tdap 12/01/2018 completed Not Available [facility] 03:55:02 Td(adult) unspecified formulation 12/31/2007 completed Not Available [facility] 05/06/2023 03:55:03 Influenza, split virus, quadrivalent, PF 05/04/2022 completed Not Available [facility] 05/06/2023 03:55:03 COVID-19, mRNA, LNP-S, PF, 100 mcg/0.5mL dose or 50 mcg/0.25mL dose 09/22/2021 completed Not Available [facility] 05/06/2023 03:55:03 COVID-19, mRNA, LNP-S, PF, 100 mcg/0.5mL dose or 50 mcg/0.25mL dose 10/19/2021 completed Not Available [facility] 05/06/2023 03:55:03 COVID-19, mRNA, LNP-S, bivalent, PF, 30 mcg/0.3 mL dose 05/04/2022 completed Not Available [facility] 05/06/20 03:55:03 pneumococcal polysaccharide PPV23 01/20/2010 completed Not Available [facility] 2022 03:55:03 Hep B, unspecified formulation 10/07/2015 completed Not Available [facility] 05/06/2023 03:55:03 Hep B, unspecified formulation 03/12/2016 completed Not Available [facility] 05/06/2023 03:55:04 Past Encounters Encounter ID Performer Location Encounter Start Date Encounter Closed Date Diagnosis/Indication Diagnosis SNOMED-CT Code [id number] KYAW LOPEZ PA-C [address] [place] [address] 11/04/2023 09:54:10 11/04/2023 12:15:16 Dyspnea 813792103 Hypothyroidism 39008421 Generalize d anxiety disorder 56485419 Nicotine dependence 5629 4008 Body mass index 40+ - severely obese 836794355 Lumbosacra l spondylosis without myelopathy 74729638 Health Concerns Section Related Observation LastModified by Organization Detai ls LastModified Time None Recorded Concern Status LastModified by Organization Details LastModified Time None Recorded Payers Encounter Date Sequence Insurance Name Policy Number Policy [place] Covered Member ID [place] Member ID Guarantor Name 11/04/2023 2 [facility] (MEDICAID) Vanesa Marrero [id number] Vanesa Marrero 11/04/2023 1 [facility] Vanesa Marrero [id number] Vanesa Marrero Notes Date Note Type Note Provider Name and Address Organization Details Recorded Time 11/04/2023 text/html HPI Notes: Vibha barger is [...] response. Her back is bothering her more. KYAW LOPEZ PA-C [address], [place], [address], [facility]. 11/04/2023 12:17:19 OBGyn Episode No OBEpisode recorded.
--- OUTSIDE RECORDS SUMMARY | 2024-02-03 01:32 | XMS_ITS | Encounter Summary ---
Author Organization [facility] Address [address] [place] [address] Care Team Providers Care School Bus Driver Name Role Phone Lynne Ramírez JAVID Primary Care Provider [phone] Mariaelena Goins FLUME MAKER Unavailable [phone] Reason for Visit * Reason Onset Date Comments Thyroid Problem 12/25/2021 Encounter Details Date Type Department Care Team (Late st Contact Info) Description 12/25/2021 Telephone [facility] Endocrinology [address] [place] [address] Phoebe Lew RN Thyroid Problem Social History Tobacco Use Types Packs/Day Years [...] Dispensed Refills Start Date End Da te SYNTHROID 25 mcg tablet Take 0.5 Tablets by mouth daily. In addition to 200 mcg tabs daily. 45 Tablet 2 12/25/2021 05/19/2022 documented in this encounter Miscellaneous Notes * Addendum Note - Mariaelena Goins NP - 12/25/2021 1114 EDTAddended by: MARIAELENA GOINS on: 12/25/2021 11:14 Modules accepted: Orders * Telephone Encounter - Mariaelena Goins NP - 12/25/2021 1108 EDT Sent Cerephex message. * Telephone Encounter - Phoebe Lew RN - 12/25/2021 0948 EDT States she had labs done at [facility] and tsh was high- taking daily on an empty stomach- no vitamins around taking med. No recent illness- taking brand synthroid and liothyronine as med list states- whatto do with dose ? - can respond via [employer] documented in this encounter Plan of Treatment Upcoming Encounters Date Type Department Care Team (Late st Contact Info) Description 02/07/2024 11:30 EDT Office Visit [facility] Endocrinology [address] [place] [address] Brenna Carmona MD [address] [place] [phone] documented as of this encounter Visit Diagnoses Not on filedocumented in this encounter Historical Medications * This list may reflect changes made after this encounter. Medication Sig Dispensed Refills Start Date End Date levothyroxine (SYNTHROID) 200 mcg tablet every 24 hours. 01/27/2022 added in this encounter Care Teams School Bus Driver Relationship Specialty Start Date End Date Lynne Ramírez FNP [facility] [place] [address] PCP - General 03/12/19 09/04/23 Mariaelena Goins NP [address] [place] [phone] Nurse Practitioner Endocrinology, Diabetes and Metabolism 07/20/21 documented as of this encounter
--- OUTSIDE RECORDS SUMMARY | 2024-02-03 01:32 | XMS_ITS | Encounter Summary ---
Author Organization [facility] Address [address] [place] [address] Care Team Providers Care Material Crew Supervisor Name Role Phone Lynne Ramírez JAVID Primary Care Provider [phone] Mariaelena Garces GARDENER Unavailable [phone] Reason for Visit * Reason Comments Thyroid Problem Encounter Details Date Type Department Care Team (Late st Contact Info) Description 07/29/2021 10:00 EST Telemedicine [facility] Endocrinology [address] [place] [address] Brenna Darnell MD [address] [facility] [address] [place] [address] Hypothyroidism, postablative (Primary Dx); History of thyroid cancer Social History Tobacco Use Types Packs/Day Years [...] - - Weight 181.4 kg (400 lb) 07/29/2021 0922 EST Height 165.1 cm (5' 5) 07/29/2021 0922 EST Body Mass Index 66.56 07/29/2021 0922 EST documented in this encounter Functional Status [...] liothyronine (CYTOMEL) 5 mcg tablet Take 1 Tablet by mouth daily. Take 1 tablet Tuesday, Tue, Tuesday. 12 Tablet 1 07/29/2021 09/25/2021 documented in this encounter Progress Notes * Charlene Ha RN - 07/29/2021 1000 EST Postablative hypothyroid TSH ordered. Message sent via portal TSH in scanned documents * Brenna Pope MD - 07/29/2021 1000 EST [facility] Video Visit Today's visit was provided through [...] thyroid cancer and hypothyroidism. Last seen in January of 2021. TSH done in Jun: 3.08. Feels tired, says not sleeping well, feels cold, dry skin. Says taking pill on empty stomach, waits [...] Stated above Objective: Examination: Home Vitals: Ht 165.1 cm (65) Wt (!) 181.4 kg (400 lb) LMP 05/22/1989 BMI 66.56 kg/m?? Pertinent exam findings: appears well, non-labored breathing, no rash on visible skin and mood and affect appropriate Data reviewed with patient: most recent labs, prior endo note Assessment & Plan: 1. Hypothyroidism, postablative TSH TSH 2. History of thyroid cancer Hypothyroidism: controlled based on TSH, clinically patient feels symptomatic. Will add T3 3 days a week. Recheck levels in 6 weeks. Recheck TG tumor marker in 2024. Advise to exercise. Prescription sent to pharmacy. The following individuals and their role did participate in today's encounter visit: Provider: Brenna Jain MD Patient documented in this encounter Plan of Treatment Upcoming Encounters Date Type Department Care Team (Late st Contact Info) Description 02/07/2024 11:30 EDT Office Visit [facility] Endocrinology [address] [place] [address] Brenna Carmona MD [address] [place] [phone] documented as of this encounter Visit Diagnoses Diagnosis Hypothyroidism, postablative- Primary Other postablative hypothyroidism History of thyroid cancer Personal history of malignant neoplasm of thyroid documented in this encounter Care Teams Material Crew Supervisor Relationship Specialty Start Date End Date Lynne Ramírez FNP [address] [place] [address] [place] [address] PCP - General 03/12/19 09/04/23 Mariaelena Garces NP [address] [place] [phone] Nurse Practitioner Endocrinology, Diabetes and Metabolism 07/20/21 documented as of this encounter
--- OUTSIDE RECORDS SUMMARY | 2024-02-03 01:32 | XMS_ITS | Encounter Summary ---
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[facility]); Chronic pain of both knees Social History [...] Info) Description 02/07/2024 11:30 EDT Office Visit [facility] Endocrinology [address] [place] [address] Brenna Carmona MD [address] [place] [address] [address] [place] [address] documented as of this encounter Procedures Procedure Name Priority Date/Time Associated Diagnosis Comments SS-B (LA) ANTIBODY, IGG Routine 05/22/2019 16:50 EST Sicca syndrome (HCC-CMS) Chronic pain of both knees ZZHN SSA ANTIBODIES BY JIMMIE Routine 05/22/2019 16:50 EST Sicca syndrome (HCC-CMS) Chronic pain of both knees RHEUMATOID FACTOR Routine 05/22/2019 16: 50 EST Sicca syndrome (HCC-CMS) Chronic pain of both knees ANTI NUCLEAR AB (FILIBERTO), IFA Routine 05/22/2019 16:50 EST Sicca syndrome (HCC-CMS) Chronic pain of both knees documented in this encounter Results * ANTI NUCLEAR AB (FILIBERTO), IFA (05/22/2019 16:50 EST) FILIBERTO Interpretation Negative Negative 2018 15:22 EST [facility] Blood VENOUS BLOOD / Unknown Venipuncture / Unknown 05/22/2019 16:50 EST 05/22/2019 17:42 EST Narrative [facility] - 05/23/2019 15:22 EST Results were obtained with the [employer] NOVA Lite HEp-2 FILIBERTO Kit by indirect immunofluorescence. Constantine Correia MD IMMUNOLOGY AND SEROLOGY ORDERABLES [facility] [address] [place] [address] * RHEUMATOID FACTOR (05/22/2019 16:50 EST) Rheumatoid Factor 8.0 <12.5 IU/mL 05/23/2019 11:34 EST [facility] Blood VENOUS BLOOD / Unknown Venipuncture / Unknown 05/22/2019 16:50 EST 05/22/2019 17:42 EST Constantine Correia MD CHEMISTRY & BL OOD GAS ORDERABLES Performing Organization Address [facility] de Phone Number [facility] [address] [place] [address] * SSB ANTIBODIES BY JIMMIE (05/22/2019 16:50 EST) SSB Antibody 2.4 <20.0 Units 05/29/2019 12:52 EST [facility] Comment: ? Negative: <20.0 Units ? Weak Positive: 20.0 - 39.9 Units ? Moderate Positive: 40.0 - 80.0 Units ? Strong Positive: >80.0 Units Results were obtained with the [employer] QUANTA Lite SS-B JIMMIE. ??SS-B values obtained with different manufacturers' assay methods may not be used interchangeably. ??The magnitude of the reported IgG levels cannot be correlated to an endpoint titer. Blood VENOUS BLOOD / Unknown Venipuncture / Unknown 05/22/2019 16:50 EST 05/22/2019 17:42 EST Constantine Correia MD IMMUNOLOGY AND SEROLOGY ORDERABLES Performing Organization Address [facility] Co de Phone Number [facility] [address] [place] [address] * SSA ANTIBODIES BY JIMMIE (05/22/2019 16:50 EST) SSA Antibody 1.3 <20.0 Units 05/29/2019 12:49 EST [facility] Comment: ? Negative: <20.0 Units ? Weak Positive: 20.0 - 39.9 Units ? Moderate Positive: 40.0 - 80.0 Units ? Strong Positive: >80.0 Units Results were obtained with the [employer] QUANTA Lite SS-A JIMMIE. ??SS-A values obtained with different manufacturers' assay methods may not be used interchangeably. ??The magnitude of the reported IgG levels cannot be correlated to an endpoint titer. Blood VENOUS BLOOD / Unknown Venipuncture / Unknown 05/22/2019 16:50 EST 05/22/2019 17:42 EST Constantine Correia MD IMMUNOLOGY AND SEROLOGY ORDERABLES Performing Organization Address City/State/[facility] Co de Phone Number [facility] [address] [place] [address] documented in this encounter Visit Diagnoses Diagnosis Sicca syndrome ([facility]) Sicca syndrome Chronic pain of both knees documented in this encounter Care Teams Horse And Wagon Driver Relationship Specialty Start Date End Date Lynne Ramírez FNP [facility] [place] [address] PCP - General 03/12/19 09/04/23 documented as of this encounter
--- OUTSIDE RECORDS SUMMARY | 2024-02-03 01:32 | XMS_ITS | Encounter Summary ---
Author Organization [facility] Address [address] [place] [address] Care Team Providers Care Hosiery Bagger Name Role Phone Lynne Ramírez JAVID Primary Care Provider [phone] Reason for Visit * Reason Comments Thyroid Problem Encounter Details Date Type Department Care Team (Late st Contact Info) Description 01/26/2021 14:00 EDT Office Visit [facility] Endocrinology [address] [place], [place] [address] Brenna Darnell MD [address] [facility] [address] [place] [address] Hypothyroidism, postablative (Primary Dx); Medication [...] - - Weight 181.4 kg (400 lb) 01/26/2021 1352 EDT Height 165.1 cm (5' 5) 01/26/2021 1352 EDT Body Mass Index 66.56 01/26/2021 1352 EDT documented in this encounter Functional Status [...] Tablet by mouth daily. Branded name necessary 30 Tablet 1 01/26/2021 03/23/2021 levothyroxine (SYNTHROID) 200 mcg tablet Take 1 Tablet by mouth daily. Branded name necessary 30 Tablet 1 01/26/2021 01/26/2021 documented in this encounter Progress Notes * Charlene Ha RN - 01/26/2021 1400 EDT Post ablation hypothyroid TSH ordered Message sent via portal * Brenna Pope MD - 01/26/2021 1400 EDT [facility] Video Visit Today's visit was provided through [...] Subjective: Chief Complaint(s): Thyroid Problem HPI: Vanesa joined zoom. Last time I send branded name but not sure what happened, she said did not get it from pharmacy. Reports feel horrible, has pain, tired. No recent labs, last one in JUL and was WNL. Prior hx: Vanesa has history of follicular [...] and affect appropriate Data reviewed with patient: last tSH Assessment & Plan: 1. Hypothyroidism, postablative TSH 2. Medication management Tsh stable but patient feels symptomatic. Will try again to prescribe brand name and repeat labs infew weeks and assess clinically. TG tumor marker to be done in 2024. Repeat TSH in 3 months and before visit. Patient understood plan. Questions answered. The following individuals and their role did participate in today's encounter visit: Provider: Brenna Jain MD Patient Brenna Jain MD 01/26/2021 14:16 documented in this encounter Plan of Treatment Upcoming Encounters Date Type Department Care Team (Late st Contact Info) Description 02/07/2024 11:30 EDT Office Visit [facility] Endocrinology [address] [place] [address] Brenna Carmona MD [address] [place] [phone] documented as of this encounter Visit Diagnoses Diagnosis Hypothyroidism, postablative- Primary Other postablative hypothyroidism Medication management Encounter for long-term (current) use of other medications documented in this encounter Discontinued Medications Medication Sig Discontinue Reason Start Date End Da te levothyroxine (SYNTHROID) 200 mcg tablet Take 1 Tab by mouth daily. Branded name necessary Order modification 08/25/2020 01/26/2021 levothyroxine (SYNTHROID) 200 mcg tablet Take 1 Tablet by mouth daily. Branded name necessary Reorder 01/26/2021 01/26/2021 documented as of this encounter Care Teams Hosiery Bagger Relationship Specialty Start Date End Date Lynne Ramírez FNP [facility] [place] [address] PCP - General 03/12/19 09/04/23 documented as of this encounter
--- OUTSIDE RECORDS SUMMARY | 2024-02-03 01:32 | XMS_ITS | Encounter Summary ---
Author Organization [facility] Address [address] [place] [address] Care Team Providers Care Logging Equipment Operator Name Role Phone Mariaelena Garces LOW EMISSION AUTOMOBILE DESIGNER Unavailable [phone] Kyaw Ahn RPA Primary Care Provider [phone] Reason for Visit * Reason Onset Date Comments Medication Management 09/05/2023 Encounter Details Date Type Department Care Team (Late st Contact Info) Description 09/05/2023 Telephone [facility] Endocrinology [address] [place] [phone] Chayito Villegas, director of community education Management Social History Tobacco Use Types Packs/Day Years [...] Yes 05/22/2019 documented as of this encounter Miscellaneous Notes * Telephone Encounter - Chayito Villegas, RN - 09/08/[address] Carmona has messaged patient and advised patient of new medication regimen. * Telephone Encounter - Chayito Villegas RN - 09/05/2023 1107 EDT Patient called to ask if her Synthroid needs to be adjusted based on TSH of 6.95. Lab results not received or scanned into patient's chart. Fax received from [facility] in [facility] and scanned into patient's chart. Sending to Dr. Carmona for guidance. documented in this encounter Plan of Treatment Upcoming Encounters Date Type Department Care Team (Late st Contact Info) Description 02/07/2024 11:30 EDT Office Visit [facility] Endocrinology [address] [place], [place] [address] Brenna Carmona MD [address] [facility] [address] [place] [phone] documented as of this encounter Visit Diagnoses Not on filedocumented in this encounter Care Teams Logging Equipment Operator Relationship Specialty Start Date End Date Kyaw Ahn RPA [address] [facility] [address] [place] [address] PCP - General Family Medicine - Primary Care 09/05/23 Mariaelena Garces NP [address] [facility] [address] [place] [phone] Nurse Practitioner Endocrinology, Diabetes and Metabolism 07/20/21 documented as of this encounter
--- OUTSIDE RECORDS SUMMARY | 2024-02-03 01:32 | XMS_ITS | Encounter Summary ---
Author Organization [facility] Address [address] [place] [address] Care Team Providers Care Client Care Representative Name Role Phone Unavailable Primary Care Provider Unavailabl e Encounter Details Date Type Department Care Team (Late st Contact Info) Description 03/28/2013 Results Only [facility] - [facility] ([facility]) [address] [place], [place] [phone] Rudy Latif, [address] [facility] ,[facility] [address] [place], [place] [phone] Social History Tobacco Use Types Packs/Day Years Used Date Smoking Tobacco: Never Assessed Sex and Gender Information Value Date Recorded Sex Assigned at Not on file Gender Identity Female 06/15/2021 12:28 EST Sexual Orientation Not on file documented as of this encounter Plan of Treatment Upcoming Encounters Date Type Department Care Team (Late st Contact Info) Description 02/07/2024 11:30 EDT Office Visit [facility] [place] [address] [place] [address] Brenna Carmona MD [address] [facility] [address] [place] [address] documented as of this encounter Procedures Procedure Name Priority Date/Time Associated Diagnosis Comments SURGICAL PATHOLOGY Routine 03/28/2013 9:15 EDT documented in this encounter Results * SURGICAL PATHOLOGY (03/28/2013 9:15 EDT) Pathology Report: SURGICAL PATHOLOGY REPORT Reports generated via electronic interface contain original data; however they are lacking the format of the original report. Caution should be taken when reading/interpreti ng unformatted reports. Name: ? VANESA COOPER ? Accession #: ? [id number] ? : ? 1965 (Age: 48) ??F ? Collect Date: ? 03/28/2013 ? Location: ? [facility] ? Receive Date: ? 03/29/2013 ? Provider: RUDY LATIF DO Copy to: ? Final Pathologic Diagnosis: A. ORAL MUCOSA, RIGHT, EXCISION: - ??Intradermal nevus. Nevus present at margin of excision. ??See comment. B. TONGUE, PUNCH BIOPSY: - ??Squamous papilloma associated with keratosis. - ??Negative for dysplasia. Comment: Dr. Sharron Nichols has reviewed this case and agrees with the above diagnosis. Dr. Real 04/02/2013 06:12 PM Document reviewed and electronically signed by: RYLAN VICKERS MD Report ??Date: 04/03/2013 15:56 By the signature above, the attending physician certifies that he/she has personally conducted a gross and/or microscopic examination of the described specimens and rendered or confirmed the above diagnosis. Specimen(s) Received: A. ?Exc right cheek lesion B. ? 2.0 mm punch bx tongue Clinical History: A. Skin lesion-long time nevus, started bleeding off and on a few months ago; B. ulceration right side of tongue, present x4 months Gross Description: A. ?Received in formalin labelled with proper patient identification (initials N, E) and exc right cheek lesion is an unoriented elliptical excision of smooth white mucosa (0.5 x 0.4 cm and is excised to a depth of 0.2 cm). ??There is a central irregular ulcerated area that measures 0.1 x 0.1 cm. The margins are inked. ??The specimen is trisected and entirely submitted as A1 central sections and A2 tips, reverse en face. B. ?Received in formalin labelled with proper patient identification (initials N, E) and 2.0 mm punch bx tongue is a single shelton-white tissue fragment (0.5 x 0.2 x 0.2 cm). ??Submitted intact in B1. Charlene Trivedi 03/29/2013 10:58 AM End of Report NICOL COLLIER 03/28/2013 9:15 EDT 03/29/2013 9:15 EDT Rudy Latif DO PATHOLOGY ORDER [facility] [address] [place] [address] documented in this encounter Visit Diagnoses Not on filedocumented in this encounter
--- OUTSIDE RECORDS SUMMARY | 2024-02-03 01:32 | XMS_ITS | Encounter Summary ---
Author Organization [facility] Address [address] [place] [address] Care Team Providers Care Mine Development Engineer Name Role Phone MonicaLynne stark JAVID Primary Care Provider [phone] Mariaelena Garces SOCK EXAMINER Unavailable [phone] Kyaw Ahn RPA Primary Care Provider [phone] Reason for Visit * Reason Onset Date Comments Medications Refill 05/26/2023 Encounter Details Date Type Department Care Team (Late st Contact Info) Description 05/26/2023 Refill [facility] Endocrinology [address] [place] [address] Samantha Mcguire, MORRIS [address] [place] [address] Medications Refill Social History Tobacco Use Types [...] mouth daily. Branded name necessary 90 Tablet 1 05/26/2023 11/24/2023 documented in this encounter Miscellaneous Notes * Telephone Encounter - Samantha Mcguire, RN - 05/26/2023 0909 EST Prescription faxed to pharmacy per order Mariaelena Garces Due for appointment 05/19/23 documented in this encounter Plan of Treatment Upcoming Encounters Date Type Department Care Team (Late st Contact Info) Description 02/07/2024 11:30 EDT Office Visit [facility] Endocrinology [address] [place] [address] Brenna Carmona MD [address] [facility] [address] [place] [phone] documented as of this encounter Visit Diagnoses Not on filedocumented in this encounter Discontinued Medications Medication Sig Discontinue Reason Start Date End Da te levothyroxine (SYNTHROID) 200 mcg tablet Take 1 Tablet by mouth daily. Branded name necessary Reorder 05/19/2022 05/26/2023 documented as of this encounter Care Teams Mine Development Engineer Relationship Specialty Start Date End Date Lynne Ramírez FNP [address] [place], [place] [address] PCP - General 03/12/19 09/04/23 Kyaw Ahn RPA [address] [facility] [address] [place], [place] [phone] PCP - General Family Medicine - Primary Care 09/05/23 Mariaelena Garces NP [address] [place] [phone] Nurse Practitioner Endocrinology, Diabetes and Metabolism 07/20/21 documented as of this encounter
--- OUTSIDE RECORDS SUMMARY | 2024-02-03 01:32 | XMS_ITS | Encounter Summary ---
Author Organization [facility] Address [address] [place] [address] Care Team Providers Care Edger Liner Name Role Phone Lynne Ramírez JAVID Primary Care Provider [phone] Mariaelena Garces QUARRY MANAGER Unavailable [phone] Reason for Visit * Reason Comments Hypothyroidism Encounter Details Date Type Department Care Team (Latest Contact Info) Description 08/02/2023 15:00 EST Telemedicine [facility] Endocrinology [address] [place] [address] Brenna Carmona MD [address] [place] [address] [place] [phone] Postprocedural hypothyroidism (Primary Dx) Social History Tobacco Use Types Packs/Day Years [...] kg (387 lb) 08/02/2023 1453 EST Height - - Body Mass Index 62.46 05/19/2022 0819 EST documented in this encounter Functional Status [...] as of this encounter Progress Notes * Amina Moise MA - 08/02/2023 1500 EST Follow up for thyroid TSH ordered * Brenna Carmona MD - 08/02/2023 1500 EST The concept of ???Telemedicine?? has been described to the patient.? Patient has been informed of the anticipated benefits and possible risks.? Patient understands the information provided regardingtelemedicine, has had the opportunity to ask questions about this information, and all questions have been answered to patient???s satisfaction. Patient consents for the use of telemedicine in his/her medical care and authorizes the transmission of any relevant medical information to providers and their staff involved in patient???s medical or mental health care. Patient understands that they maybe responsible for copays, deductible or coinsurance for this service. TELEMEDICINE VIDEO VISIT Today's visit was provided through telemedicine video conferencing: I have reviewed the appropriateness of using video technology with the patient with regards to today's visit. The location of the patient : Home Patient location state: Visit Location State: [place] The location of the provider: Office Provider location state: Visit Location State: [place] The following people and their roles were present for today's visit: Appointment Provider: Brenna Carmona MD Maria del Pilar Solano, MD CC: Ms. Vanesa Marrero is a 58 y.o. female, who comes today for follow-up of hypothyroidism and history of thyroid cancer HPI: Last seen by Dr Darnell in 04/2022 Hypothyroidism diagnosed at age 24 when a thyroid nodule was found on PE Had Subtotal Thyroidectomy and HODGE Currently on brand Synthroid 200 mcg. Overall feels fairly well. Has lost weight from 424 to 387 with a combination of Naltrexone and Wellbutrin. The patient denies unexplained fatigue, heat or cold intolerance, changes in skin, hair, and nails, or changes in bowel habits or sleep patterns. Per patient the TSH was a little high. She has not missed any doses. Takes it on empty stomach, away form other meds and foods by 30 minutes. I the past had trouble tolerating a higher dse of Synthroid 212.5and also tried Cytomel but did not work Past Medical History/Problem List: Patient Active Problem List Diagnosis Sleep apnea Morbid obesity (HCC-CMS) Mechanical low back pain Lumbosacral spondylosis without myelopathy Depression Bilateral knee pain Tobacco dependence Liver lesion Fatigue Aneurysm (HCC-CMS) History of thyroid cancer Myopathy Myofascial pain IFG (impaired fasting glucose) Hyperlipidemia, unspecified History of nicotine dependence NSAID long-term use Osteoarthritis of both knees Panic disorder Prurigo nodularis Spondylosis of lumbar spine Stage 3 chronic kidney disease (HCC-CMS) Pain in joint, lower leg Postprocedural hypothyroidism Past Sugical History: Past Surgical History: Procedure Laterality Date CHOLECYSTECTOMY HERNIA REPAIR THYROIDECTOMY partial lobectomy about age 25 Family History: Family History Problem Relation Age of Onset Thyroid Disease Neg Hx Social History: Social History Tobacco Use Smoking status: Every Day Current packs/day: 0.25 Average packs/day: 0.3 packs/day for 25.0 years (6.3 ttl pk-yrs) Types: Cigarettes Smokeless tobacco: Never Substance Use Topics Alcohol use: Not Currently Drug use: Yes Types: Marijuana Comment: regualrly for pain Review of Systems: Negative. She is feeling well. Medications: Current Outpatient Medications on File Prior to Visit Medication Sig Dispense Refill acetaminophen (TYLENOL) 500 mg tablet Take 1 Tablet by mouth daily. 2 in am ALPRAZolam (XANAX XR) 3 mg XR tablet Take 1 Tablet by mouth 2 times daily. ALPRAZolam (XANAX) 1 mg tablet Take 1 Tablet by mouth as needed. b complex vitamins capsule vitamin B complex capsule Take 1 capsule every week by oral route. (Patient not taking: Reported on 08/02/2023) buPROPion (WELLBUTRIN SR) 100 mg SR tablet Take 1 Tablet by mouth 2 times daily. clomipramine HCl (CLOMIPRAMINE ORAL) Take 200 mg by mouth at bedtime. folic acid/multivit-min/lutein (CENTRUM SILVER ORAL) Take 1 Tab by mouth. hydrOXYzine (ATARAX) 25 mg tablet Take 2 Tablets by mouth 3 times daily as needed (for headaches). L.acid/L.casei/B.bif/B.ashley/FOS (PROBIOTIC BLEND ORAL) Take by mouth. levothyroxine (SYNTHROID) 200 mcg tablet Take 1 Tablet by mouth daily. Branded name necessary 90 Tablet 1 Magnesium 250 mg tablet Take 2 Caps by mouth daily. naltrexone (REVIA) 50 mg tablet Take 0.5 Tablets by mouth 2 times daily. Rpmzh-8-UJW-EPA-Fish Oil 1,200 (144-216) mg capsule Take 2 Caps by mouth. Omeprazole 20 mg tablet,delayed release (DR/EC) Take by mouth daily. Psyllium Husk 0.52 gram capsule Take 4 Tabs by mouth daily. (Patient not taking: Reported on 08/02/2023) VITAMIN D3 25 mcg (1,000 unit) capsule Take 3 Capsules by mouth daily. No current facility-administered medications on file prior to visit. Allergies: Allergies Allergen Reactions Gabapentin Other (See Comments) Unsure Nsaids (Non-Steroidal Anti-Inflammatory Drug) Other (See Comments) Kidney failure Physical Exam: Patient Vitals for the past 24 hrs: Weight 08/02/23 1453 (!) 175.5 kg (387 lb) Body mass index is 62.46 kg/m??. Well appearing patient in no acute distress. Lab and Imaging Results: Lab Results Component Value Date [id number] 133 10/19/2021 Assessment and Plan: Hypothyroidism: clinically euthyroid but biochemically mildly hypothyroid based on reported TSH. Will try to track don the results to decide on dose adjustment if needed. RTC 6 months documented in this encounter Plan of Treatment Upcoming Encounters Date Type Department Care Team (Late st Contact Info) Description 02/07/2024 11:30 EDT Office Visit [facility] Endocrinology [address] [id number] Brenna Carmona MD [address] [place] [address] Scheduled Orders Name Type Priority Associated Diagnoses Orde r Schedule TSH Lab Routine Postprocedural hypothyroidism Expected: 07/28/2023 (Approximate), Expires: 07/27/2024 documented as of this encounter Visit Diagnoses Diagnosis Postprocedural hypothyroidism- Primary Postsurgical hypothyroidism documented in this encounter Discontinued Medications Medication Sig Discontinue Reason Start Date End Da te cholecalciferol, Vitamin D3, 2,000 unit tablet Take 1.5 Tablets by mouth daily. Duplicate order 08/02/2023 buPROPion (WELLBUTRIN) 100 mg tablet Take 1 Tablet by mouth 2 times daily. Duplicate order 08/02/2023 documented as of this encounter Historical Medications * This list may reflect changes made after this encounter. Medication Sig Dispensed Refills Start Date End Date VITAMIN D3 25 mcg (1,000 unit) capsule Take 3 Capsules by mouth daily. 12/27/2022 buPROPion (WELLBUTRIN SR) 100 mg SR tablet Take 1 Tablet by mouth 2 times daily. 07/29/2023 naltrexone (REVIA) 50 mg tablet Take 0.5 Tablets by mouth 2 times daily. buPROPion (WELLBUTRIN) 100 mg tablet Take 1 Tablet by mouth 2 times daily. 08/02/2023 added in this encounter Care Teams Edger Liner Relationship Specialty Start Date End Date Lynne Ramí[place] [address] PCP - General 03/12/19 09/04/23 Mariaelena Garces NP [address] [place] [address] [address] [place] [phone] Nurse Practitioner Endocrinology, Diabetes and Metabolism 07/20/21 documented as of this encounter
--- OUTSIDE RECORDS SUMMARY | 2024-02-03 01:32 | XMS_ITS | Referral Summary ---
Author Organization [facility] Address [address] [place] [address] Care Team Providers Care Ip Attorney Name Role Phone Mariaelena Garces NP Unavailable [phone] Kyaw Ahn RPA Primary Care Provider [phone] Encounters Date Type Department Care Team Description 12/26/2023 Refill [facility] Endocrinology [address] [place], [place] [phone] Samantha Mcguire, MORRIS Medications Refill 11/24/2023 Refill [facility] Endocrinology [address] [place], [place] [address] Mariaelena Garces NP Medications Refill from Last 3 Months Allergies Active Allergy Reactions Criticality Noted Date [...] ORAL) Take 1 Tab by mouth. Active Rcwcb-3-TWS-EPA-Fish Oil 1,200 (144-216) mg capsule Take 2 [...] 04/22/2020 Liver lesion 04/22/2020 Fatigue 04/22/2020 Aneurysm ([facility]) 04/22/2020 History of thyroid cancer 04/22/2020 Stage 3 chronic kidney disease ([facility]) 017 Myofascial pain 09/07/2016 NSAID long-term use 09/07/2016 IFG (impaired fasting glucose) 11/12/2015 Hyperlipidemia, unspecified 11/12/2015 Prurigo nodularis 10/03/2015 History of nicotine dependence 03/21/2014 Pain in joint, lower leg 03/21/2014 Lumbosacral spondylosis without myelopathy 11/21 Spondylosis of lumbar spine 10/10/2013 Mechanical low back pain 09/12/2013 Sleep apnea 08/23/2013 Morbid obesity ([facility]) 08/23/2013 Depression 08/23/2013 Bilateral knee pain 08/23/2013 Panic disorder 02/28/2013 Immunizations Name Administration Dates Next Due Hepatitis [...] IM 12/31/2007 Tdap Vaccine =>7YO IM 12/01/2018,01/10/2008 Social History Tobacco Use Types Packs/Day Years [...] 12:28 EST Sexual Orientation Not on file Last Filed [...] Body Mass Index 62.46 05/19/2022 0819 EST Functional Status Functional Status Response Date of [...] concentrating, remembering, or making decisions? Yes 05/22/2019 Plan of Treatment Upcoming Encounters Date Type Department Care Team (Late st Contact Info) Description 02/07/2024 11:30 EDT Office Visit [facility] Endocrinology [address] [place] [address] Brenna Carmona MD [address] [facility] [address] [place] [address] Vanesa Marrero Personal/Family Self 1965 [address] [facility] [address] Vanesa Marrero Personal/Family Self 1965 [address] [facility] [address] Vanesa Marrero Personal/Family Self 1965 [address] [facility] [address] Vanesa Marrero Personal/Family Self 1965 [address] [facility] [place] [address] Care Teams Ip Attorney Relationship Specialty Start Date End Date Kyaw Ahn RPA [address] [place] [address] PCP - General Family Medicine - Primary Care 09/05/23 Mariaelena Garces NP [address] [place] [phone] Nurse Practitioner Endocrinology, Diabetes and Metabolism 07/20/21
--- OUTSIDE RECORDS SUMMARY | 2024-02-03 01:32 | XMS_ITS | Encounter Summary ---
[place] [address] Care Team Providers Care Paramedic Name Role Phone Roula Bauman APRN Primary Care Provider [phone] Encounter Details Date Type Department Care Team (Late st Contact Info) Description 01/20/2024 [place] [phone] Pancho Hart Social History Tobacco Use Types [...] * Telephone Encounter - Pancho Hart - 01/20/2024 2:34 PM EDT Vanesa Marrero [id number] Diagnosis/Indication: + cologuard Please review patient chart to confirm if previous Endoscopy procedure was performed within system. If yes, take note of Anesthesia type used. If previous procedure found, and with MAC/propofol Anesthesia support was used, schedule this procedure with Anesthesia and skip the Anesthesia portion of questions. If not performed within system, not performed at all, or performed with IVCS, ask Anesthesia questions. SCHEDULING QUESTIONS (ask all patient these questions) Have you ever had a/an Colonoscopy before? No If yes, did you have any problems with the procedure (such as waking up during the procedure, pain or difficulties afterwards, etc.)? No What type of sedation was used: None (ASK ONLY FOR COLONOSCOPY PROCEDURES) Are you aware, or have you ever been told that you had a poor prep or failed prep with a previous colonoscopy? No If yes, assign the Extended MiraLAX Prep (ASK ONLY FOR COLONOSCOPY PROCEDURES) Do you have an ongoing history of constipation? (E.g., hard stools, >2 days without a bowel movement, straining or difficulty passing stool) No If yes, assign the Extended MiraLAX Prep Do you take any blood thinners or have you been diagnosed with a bleeding disorder that increases your risk of bleeding with procedures? No Do you have a Pacemaker or Defibrillator device? If yes, send pool message to Cardiology with patient information and date or procedure. No Do you have diabetes? If yes, call PCP/managing provider to discuss use of prep and any questions or concerns related to. No If yes, assign the Extended MiraLAX Prep Do you take any iron supplements or vitamins that contain iron? Yes Do you have a preference regarding the gender of your provider? No ANESTHESIA QUESTIONS (YES to any question, please book with Anesthesia support) Have you ever been diagnosed with Pulmonary Hypertension and/or Congential Heart Disease? No Have you been diagnosed with A-Fib (atrial fibrillation) that is NOT being well controled with medications? No Have you ever had an allergic or adverse reaction to Fentanyl or Versed? No Have you had a problem with sedation or anesthesia? (Waking up during procedure, extreme confusion after, etc.) No Do you have a diagnosis of Obstructive Sleep Apnea that requires the use of a c- pap machine? Yes Do you use an oxygen tank at home? No Do you use a rescue inhaler more than twice per day? (COPD, severe asthma) No Do you experience breathing problems when you lay flat for a period of time? No Do you regularly take prescription opioid pain medications on a daily basis? (Includes oxycodone, Percocet, Suboxone, methadone, etc.) No If yes, assign the Extended MiraLAX Prep SCHEDULING CONFIRMATIONS: Please note any and all parts of your conversation with the patient here. We offer all new patients an opportunity to have an appointment with one of our associate care providers to learn more about your upcoming procedure, ask questions and get answers. These appointmentsare offered via telehealth. Would you be interested in scheduling this appointment? (Only ask if NEW referral patient; skip this question if [facility] provider ordered the procedure.) No Is there any other information or concerns you would like to us to share with your care team in relation to your upcoming scheduled procedure? No You must have a responsible libertarian who will drive you to your procedure, stay on campus for the entire duration of your procedure, and drive you home from your procedure. Who will likely be your powder truck driver for the procedure? Bhumi *Please Verify the height and weight, and adjust if height and/or weight have changed* Estimated body mass index is 64.42 kg/m?? as calculated from the following: Height as of 02/26/14: 166.4 cm (5' 5.5). Weight as of 11/14/14: 178.3 kg (393 lb 1.3 oz). Age:58 y.o. documented in this encounter Plan of Treatment Scheduled Procedures Name Priority Associated Diagnoses Date/Ti me COLONOSCOPY, DIAGNOSTIC (WRV U 3.26) + cologuard Procedure: Colonoscopy Indication: Positive Cologuard Sedation: MAC Rationale for MAC: MONSE with BiPap, severe obesity with BMI >40 Timeframe: within 3 months Specific provider: first available documented as of this encounter Visit Diagnoses Not on filedocumented in this encounter Care Teams Paramedic Relationship Specialty Start Date End Date Roula Bauman APRN [address] [place] [address] PCP - General 11/14/14 documented as of this encounter
--- OUTSIDE RECORDS SUMMARY | 2024-02-03 01:32 | XMS_ITS | Encounter Summary ---
Author Organization [facility] [place] [address] Care Team Providers Care Product Development Intern Name Role Phone Roula Bauman APRN Primary Care Provider [phone] Encounter Details Date Type Department Care Team (Late st Contact Info) Description 09/30/2021 Ancillary Procedure [place] [phone] Juan Manuel Eldridge MD [facility] [place] [address] Social History Tobacco Use Types Packs/Day Years [...] STORAGE ONLY CT CHEST ABDOMEN PELVIS Routine 09/30/2021 12:00 AM EDT documented in this encounter Results * Film Library- Storage Only CT Chest Abdomen Pelvis (09/30/2021 12:00 AM EDT) Narrative [facility] - 12/21/2021 1:24 PM EDT This exam is auto-finalizing. It's purpose is for storage only. Juan Manuel Eldridge MD IMG FILM LIBRARY ORD ERABLES Performing Organization Address City/State/[facility] Co de Phone Number [place], [place] documented in this encounter Visit Diagnoses Not on filedocumented in this encounter Care Teams Product Development Intern Relationship Specialty Start Date End Date Roula Bauman APRN [address] [place] [address] PCP - General 11/14/14 documented as of this encounter
--- OUTSIDE RECORDS SUMMARY | 2024-02-03 01:32 | XMS_ITS | Encounter Summary ---
Author Organization [facility] Address [address] [place] [address] Care Team Providers Care Hspt Tutor Name Role Phone Mariaelena Garces WIND ENERGY SYSTEMS INSTALLER Unavailable [phone] Kyaw Ahn RPA Primary Care Provider [phone] Reason for Visit * Reason Comments Medications Refill Encounter Details Date Type Department Care Team (Late st Contact Info) Description 11/24/[address] [facility] Endocrinology [address] [place], [place] [phone] Mariaelena Garces WIND ENERGY SYSTEMS INSTALLER [address] [facility] [address] [place] [address] Medications Refill Social History Tobacco Use Types [...] Refills Start Date End Da te SYNTHROID 200 mcg tablet TAKE ONE TABLET BY MOUTH EVERY DAY 90 Tablet 1 11/24/2023 documented in this encounter Miscellaneous Notes * Telephone Encounter - Christine Mcdaniels RN - 11/24/2023 0948 EDT Requesting refill synthroid. Up to date with labs and ofc visits. documented in this encounter Plan of Treatment Upcoming Encounters Date Type Department Care Team (Late st Contact Info) Description 02/07/2024 11:[address] [facility] Endocrinology [address] [place] [address] Brenna Carmona MD [address] [facility] [address] [place] [phone] documented as of this encounter Visit Diagnoses Not on filedocumented in this encounter Discontinued Medications Medication Sig Discontinue Reason Start Date End Da te levothyroxine (SYNTHROID) 200 mcg tablet Take 1 Tablet by mouth daily. Branded name necessary 05/26/2023 11/24/2023 documented as of this encounter Care Teams Hspt Tutor Relationship Specialty Start Date End Date Kyaw Ahn RPA [address] [place] [address] [place] [address] PCP - General Family Medicine - Primary Care 09/05/23 Mariaelena Garces NP [address] [facility] [address] [place] [phone] Nurse Practitioner Endocrinology, Diabetes and Metabolism 07/20/21 documented as of this encounter
--- OUTSIDE RECORDS SUMMARY | 2024-02-03 01:32 | XMS_ITS | Encounter Summary ---
[place] [address] Care Team Providers Care Youth Teacher Name Role Phone Roula Bauman APRN Primary Care Provider [phone] Reason for Referral * Consultation (Routine) - Closed Specialty Diagnoses / Procedures Referred By Alexia roger Referred To Contact Gastroenterology Diagnoses Special screening for malignant neoplasms, colon Procedures COLONOSCOPY Kyaw Ahn PA [address] [place] [address] [facility] Endoscopy [address] [place] [phone] Referral ID Status Reason Start Date Expiration Date V isits Requested Visits Authorized [id number] Closed Consult, Test & Treat 11/29/2023 11/28/2024 1 1 Encounter Details Date Type Department Care Team (Latest Contact Info) Description 11/29/2023 Transcribe Orders [place] [address] Kyaw Ahn PA [address] [place] [address] Special screening for malignant neoplasms, colon Social History Tobacco Use Types Packs/Day Years [...] within 3 months Specific provider: first available Scheduled Referrals Name Type Priority Associated Diagnoses Orde r Schedule Referral to General Surgery Outpatient Referral Routine Special screening for malignant neoplasms, colon Ordered: 11/29/2023 documented as of this encounter Visit Diagnoses Diagnosis Special screening for malignant neoplasms, colon documented in this encounter Care Teams Youth Teacher Relationship Specialty Start Date End Date Roula Bauman APRN [address] [place] [address] PCP - General 11/14/14 documented as of this encounter
--- OUTSIDE RECORDS SUMMARY | 2024-02-03 01:32 | XMS_ITS | Encounter Summary ---
Author Organization [facility] Address [address] [place] [address] Care Team Providers Care International Trade Analyst Name Role Phone Lynne Ramírez FARMWORKER VEGETABLE Primary Care Provider [phone] Encounter Details Date Type Department Care Team (Late st Contact Info) Description 04/22/2020 Abstract [facility] Endocrinology [address] [place] [id number] Brenna Darnell MD [address] [place] [address] [address] [place] [phone] Social History Tobacco Use Types Packs/Day Years [...] Info) Description 02/07/2024 11:30 EDT Office Visit [facility] Endocrinology [address] [place] [address] [place] [address] Brenna Carmona MD [address] [facility] [address] [place] [address] documented as of this encounter Visit Diagnoses Not on filedocumented in this encounter Care Teams International Trade Analyst Relationship Specialty Start Date End Date Lynne Ramírez FNP [facility] [address] [place], [place] [address] PCP - General 03/12/19 09/04/23 documented as of this encounter
--- OUTSIDE RECORDS SUMMARY | 2024-02-03 01:32 | XMS_ITS | Encounter Summary ---
Author Organization [facility] Address [address] [place] [address] Care Team Providers Care Electrical Lineworker Name Role Phone Lynne Ramírez JAVID Primary Care Provider [phone] Reason for Visit * Reason Onset Date Comments Medications Refill 03/23/2021 Encounter Details Date Type Department Care Team (Late st Contact Info) Description 03/23/2021 Telephone [facility] Endocrinology [address] [place] [address] Samantha Mcguire, MORRIS [address] [place] [address] Medications Refill Social History Tobacco Use Types [...] daily. Branded name necessary 90 Tablet 2 03/23/2021 12/16/2021 documented in this encounter Miscellaneous Notes * Telephone Encounter - Samantha Mcguire, RN - 03/23/2021 1021 EDT Prescription faxed to pharmacy per order Dr Darnell documented in this encounter Plan of Treatment Upcoming Encounters Date Type Department Care Team (Late st Contact Info) Description 02/07/2024 11:30 EDT Office Visit [facility] Endocrinology [address] [place] [address] Brenna Carmona MD [address] [place] [phone] documented as of this encounter Visit Diagnoses Not on filedocumented in this encounter Discontinued Medications Medication Sig Discontinue Reason Start Date End Da te levothyroxine (SYNTHROID) 200 mcg tablet Take 1 Tablet by mouth daily. Branded name necessary Reorder 01/26/2021 03/23/2021 documented as of this encounter Care Teams Electrical Lineworker Relationship Specialty Start Date End Date Lynne Ramírez [place] [address] PCP - General 03/12/19 09/04/23 documented as of this encounter
--- OUTSIDE RECORDS SUMMARY | 2024-02-03 01:32 | XMS_ITS | Encounter Summary ---
Author Organization [facility] Address [address] [place] [address] Care Team Providers Care Crown Ceramist Name Role Phone Lynne Ramírez JAVID Primary Care Provider [phone] Mariaelena Graces ELECTRONICS ASSEMBLER AND TESTER Unavailable [phone] Reason for Visit * Reason Comments Hypothyroidism Refill, medication m onitoring Encounter Details Date Type Department Care Team (Latest Contact Info) Description 05/19/2022 8:30 EST Telemedicine [facility] Endocrinology [address] [place] [address] Brenna Dranell MD [address] [facility] [address] [place] [address] Postprocedural hypothyroidism (Primary Dx); Medication management; Medication refill Social History Tobacco Use Types Packs/Day Years [...] - Inhaled Oxygen Concentration - - Weight 188.2 kg (415 lb) 05/19/2022 0819 EST Height 167.6 cm (5' 6) 05/19/2022 0819 EST Body Mass Index 66.98 05/19/2022 0819 EST documented in this encounter [...] mouth daily. Branded name necessary 90 Tablet 3 05/19/2022 05/26/2023 documented in this encounter Progress Notes * Brenna Pope MD - 05/19/2022 0830 EST [facility] [place] Visit Today's visit was provided through [...] or auxiliary staff: yes. Subjective: Chief Complaint(s): Hypothyroidism (Refill, medication monitoring) HPI: Vanesa is a 57 y/o woman presented to clinic using zoom for follow up for hx of thyroid cancer and hypothyroidism. Last seen in January of 2022. T3 was stopped last visit because it did not work. Branded name Synthroid has worked. 05/04/22: TSH 0.92 uiU/ml. Was advised to try Synthroid 212.5 mcg a day but this caused severe diarrhea, she tried this for about 3 weeks. so now doing 200 mcg a day. Says taking pill on empty stomach, waits at least 30 min to eat breakfast and take pills. Not very mobile. Has decreased the amount of cigarettes. Weight is stable. No falls. 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 She was rendered hypothyroid after that. No family history of thyroid disease. I have reviewed patient's tobacco history: reports that she has been smoking cigarettes. She has a 6.25 pack-year smoking history. She has never used smokeless tobacco. I have reviewed current problem list and current medications. ROS: ROS Negative for neck pain, chest pain, no SOB Diarrhea has stopped. Objective: Examination: Home Vitals: Ht 167.6 cm (66) Wt (!) 188.2 kg (415 lb) LMP 05/22/1989 BMI 66.98 kg/m?? Pertinent exam findings: appears well, non-labored breathing, no rash on visible skin and mood and affect appropriate Data reviewed with patient: most recent labs, prior endo note Assessment & Plan: 1. Postprocedural hypothyroidism TSH 2. Medication management 3. Medication refill Hypothyroidism: well controlled on current therapy. No side effects. Prescription adjusted to be 200 mcg a day of branded name Synthroid. Recheck labs in 6 months and before visit. Continue with her vitamins. Refill given. Advise to exercise. The following individuals and their role did participate in today's encounter visit: Provider: Brenna Jain MD Patient documented in this encounter Plan of Treatment Upcoming Encounters Date Type Department Care Team (Late st Contact Info) Description 02/07/2024 11:30 EDT Office Visit [facility] Endocrinology [address] [place] [address] Brenna Carmona MD [address] [place] [address] [place] [phone] documented as of this encounter Visit Diagnoses Diagnosis Postprocedural hypothyroidism- Primary Postsurgical hypothyroidism Medication management Encounter for long-term (current) use of other medications Medication refill Issue of repeat prescriptions documented in this encounter Discontinued Medications Medication Sig Discontinue Reason Start Date End Da te SYNTHROID 25 mcg tablet Take 0.5 Tablets by mouth daily. In addition to 200 mcg tabs daily. Therapy completed 12/25/2021 05/19/2022 levothyroxine (SYNTHROID) 200 mcg tablet Take 1 Tablet by mouth daily. Branded name necessary Reorder 01/27/2022 05/19/2022 documented as of this encounter Historical Medications * This list may reflect changes made after this encounter. Medication Sig Dispensed Refills Start Date End Date L.acid/L.casei/B.bif/B.ashley/FOS (PROBIOTIC BLEND ORAL) Take by mouth. added in this encounter Care Teams Crown Ceramist Relationship Specialty Start Date End Date Lynne Ramírez FNP [facility] [place] [address] PCP - General 03/12/19 09/04/23 Mariaelena Garces NP [address] [place] [phone] Nurse Practitioner Endocrinology, Diabetes and Metabolism 07/20/21 documented as of this encounter
--- OUTSIDE RECORDS SUMMARY | 2024-02-03 01:33 | XMS_ITS | Encounter Summary ---
Author Organization [facility] Address [facility] [place] [address] Care Team Providers Care Filament Maker Name Role Phone Bhumi Ventura APRN Primary Care Provider Encounter Details Date Type Department Care Team (Latest Contact Info) Description 08/23/2013 12:38 PM EST - 08/23/2013 11:59 PM EST Hospital Encounter [facility] [place] [facility] [address] [place] [address] Bilateral knee pain Social History Tobacco Use Types Packs/Day Years Used Date Smoking Tobacco: Every Day Cigarettes 0.5 25 Smokeless Tobacco: Never Alcohol Use Standard Drinks/Week Comments Yes 0 (1 standard drink = 0.6 oz pur e alcohol) Sex and Gender Information Value Date Recorded Sex Assigned at Not on file Gender Identity Not on file Sexual Orientation Not on file documented as of this encounter Medications at Time of Discharge Medication Sig Dispensed Refills Start Date End Date ARIPiprazole (ABILIFY) 5 mg tablet Take 5 mg by mouth daily. ALPRAZolam (XANAX XR) 3 mg 24 hr tablet Take 3 mg by mouth 2 times daily. ALPRAZolam (XANAX) 1 mg tablet Take 1 mg by mouth as needed. clomiPRAMINE (ANAFRANIL) 75 mg capsule Take 150 mg by mouth daily. piroxicam (FELDENE) 10 mg capsule Take 20 mg by mouth daily. levothyroxine (SYNTHROID) 175 mcg tablet 175mcg, PO, QD 04/01/2005 modafinil (PROVIGIL) 200 mg tablet 04/01/2005 acetaminophen (TYLENOL) 500 mg tablet Take 1,000 mg by mouth as needed. 02/21/2014 documented as of this encounter Procedure Notes * Arthur Ziegler MD - 08/23/2013 2:43 PM ESTProcedure(s): ARTHROCENTESIS,DRAIN/INJECT JOINT/BURSA Vanesa Marrero [id number] HISTORY: bilateral knee Pain Bilateral Knee INJECTION UNDER FLUOROSCOPY TECHNIQUE: After an extensive conversation with the patient regarding risks and benefits, oral and written consent were obtained. The patient was placed lateral right decubitus on the fluoroscopic table. The right knee was prepped and draped in the usual aseptic manner. 1% Lidocaine was used to achieve local anesthesia. Under fluoroscopic guidance, 22 gauge spinal needle was advanced into the joint space. A small amount of air was injected to document needle placement. A mixture of Ropivacaine and triamcinolone acetonide was injected. All needles were removed at end of procedure. Next, the patient was placed lateral left decubitus on the fluoroscopic table. The left knee was prepped and draped in the usual aseptic manner. 1% Lidocaine was used to achieve local anesthesia. Under fluoroscopic guidance, 22 gauge spinal needle was advanced into the joint space. A small amount of air was injected to document needle placement. A mixture of Ropivacaine and triamcinolone acetonide was injected. All needles were removed at end of procedure. FINDINGS: 1. Small amount of injected air in the right and left knee joint spaces. 2. PAIN SCORE: Right Before: 4 /10 After: 3 /10 Left Before: 5 /10 After: 4 /10 3. Medications: Lidocaine 1% - <5 ml, for subcutaneous anesthesia Ropivacaine HCL 0.5% - 3 ml,-each knee Triamciolone Acetonide - 30 mg, each knee Fluoroscopy time: I minute, 9 sec COMPLICATIONS: None immediate. POST-PROCEDURE CARE: Information regarding monitor of infection, post- procedural pain and management of steroid flare were reviewed with patient. IMPRESSION: Uneventful bilateral knee injection under fluoroscopy. Resident/Fellow: Gerardo Attending: Arthur Kimball MD was present with the resident for the martinez component(s) of the procedure and otherwise remained immediately available for the duration of the procedure. documented in this encounter Plan of Treatment Scheduled Procedures Name Priority Associated Diagnoses Date/Ti me COLONOSCOPY, DIAGNOSTIC (WRV U 3.26) + cologuard Procedure: Colonoscopy Indication: Positive Cologuard Sedation: MAC Rationale for MAC: MONSE with BiPap, severe obesity with BMI >40 Timeframe: within 3 months Specific provider: first available documented as of this encounter Procedures Procedure Name Priority Date/Time Associated Diagnosis Comments XR FLUORO INJECTION FL DRAIN LARGE JT Routine 08/23/2013 2:34 PM EST Bilateral knee pain documented in this encounter Results * XR Fluoro injection FL drain large JT (08/23/2013 2:34 PM EST) Anatomical Region Laterality Modality N/A Radiographic Kyara ging 08/23/2013 2:34 PM EST Impressions 08/27/2013 2:31 PM EST IMPRESSION: Uneventful bilateral knee injection under fluoroscopy. ?? Resident/Fellow: Gerardo ?? Attending: Toney ?? Arthur Zavala MD was present with the resident for the martinez component(s) of the procedure and otherwise remained immediately available for the duration of the procedure. ?? Film and interpretation reviewed by the attending Narrative 08/27/2013 2:31 PM EST HISTORY: bilateral knee Pain ?? Bilateral Knee INJECTION UNDER FLUOROSCOPY ?? TECHNIQUE: After an extensive conversation with the patient regarding risks and benefits, oral and written consent were obtained. The patient was placed lateral right decubitus on the fluoroscopic table. The right knee was prepped and draped in the usual aseptic manner. 1% Lidocaine was used to achieve local anesthesia. Under fluoroscopic guidance, 22 gauge spinal needle was advanced into the joint space. A small amount of air was injected to document needle placement. A mixture of Ropivacaine and triamcinolone acetonide was injected. All needles were removed at end of procedure. ?? Next, the patient was placed lateral left decubitus on the fluoroscopic table. The left knee was prepped and draped in the usual aseptic manner. 1% Lidocaine was used to achieve local anesthesia. Under fluoroscopic guidance, 22 gauge spinal needle was advanced into the joint space. A small amount of air was injected to document needle placement. A mixture of Ropivacaine and triamcinolone acetonide was injected. All needles were removed at end of procedure. ?? FINDINGS: ?? 1. Small amount of injected air in the right and left knee joint spaces. ?? 2. PAIN SCORE: ?? Right ?? Before: 4 /10 ?? After: 10 ?? Left ?? Before: 10 ?? After: ?? 3. Medications: ?? Lidocaine 1% - <5 ml, for subcutaneous anesthesia ?? Ropivacaine HCL 0.5% - 3 ml,-each knee ?? Triamciolone Acetonide - 30 mg, each knee ?? Fluoroscopy time: I minute, 9 sec ?? COMPLICATIONS: None immediate. ?? POST-PROCEDURE CARE: Information regarding monitor of infection, post- procedural pain and management of steroid flare were reviewed with patient. ?? Procedure Note Arthur Ziegler MD - 08/27/2013 HISTORY: bilateral knee Pain Bilateral Knee INJECTION UNDER FLUOROSCOPY TECHNIQUE: After an extensive conversation with the patient regardingrisks and benefits, oral and written consent were obtained. The patient was placed lateral right decubitus on the fluoroscopic table. The right knee wasprepped and draped in the usual aseptic manner. 1% Lidocaine was used to achievelocal anesthesia. Under fluoroscopic guidance, 22 gauge spinal needle wasadvanced into the joint space. A small amount of air was injected to documentneedle placement. A mixture of Ropivacaine and triamcinolone acetonide wasinjected. All needles were removed at end of procedure. Next, the patient was placed lateral left decubitus on the fluoroscopictable. The left knee was prepped and draped in the usual aseptic manner. 1%Lidocaine was used to achieve local anesthesia. Under fluoroscopic guidance, 22gauge spinal needle was advanced into the joint space. A small amount of air was injected to document needle placement. A mixture of Ropivacaine and triamcinolone acetonide was injected. All needles were removed at end of procedure. FINDINGS: 1. Small amount of injected air in the right and left knee joint spaces. 2. PAIN SCORE: Right Before: 4 /10 After: Left Before: After: 3. Medications: Lidocaine 1% - <5 ml, for subcutaneous anesthesia Ropivacaine HCL 0.5% - 3 ml,-each knee Triamciolone Acetonide - 30 mg, each knee Fluoroscopy time: I minute, 9 sec COMPLICATIONS: None immediate. POST-PROCEDURE CARE: Information regarding monitor of infection, post- procedural pain and management of steroid flare were reviewed withpatient. IMPRESSION IMPRESSION: Uneventful bilateral knee injection under fluoroscopy. Resident/Fellow: Gerardo Attending: Arthur Kimball MD was present with the resident for the keycomponent(s) of the procedure and otherwise remained immediately available for theduration of the procedure. Film and interpretation reviewed by the attending Sebastien Kathleen MD IMG FLUORO ORDERABLE S documented in this encounter Visit Diagnoses Diagnosis Bilateral knee pain Pain in joint, lower leg documented in this encounter Administered Medications Inactive Administered Medications - up to 3 most recent administrations Medication Order MAR Action Action Date Dose Rate Site ROpivacaine (PF) 5 mg/mL (0.5 %) 4 mL with triamcinolone acetonide 3 mg injection Intra-articular, ONCE, 1 dose, On Marlen 08/23/13 at 1430 Given 08/23/2013 2:30 PM EST ROpivacaine (PF) 5 mg/mL (0.5 %) 4 mL with triamcinolone acetonide 3 mg injection Intra-articular, ONCE, 1 dose, On Marlen 08/23/13 at 1430 Given 08/23/2013 2:00 PM EST documented in this encounter Care Teams Filament Maker Relationship Specialty Start Date End Date Bhumi Ventura APRN [address] [place] [address] PCP - General 08/23/13 11/13/14 documented as of this encounter
--- OUTSIDE RECORDS SUMMARY | 2024-02-03 01:33 | XMS_ITS | Encounter Summary ---
[place] [address] Care Team Providers Care Pipe Fitter Helper Name Role Phone LorenzoCasperBhumi JOHN Primary Care Provider [phone] Encounter Details Date Type Department Care Team (Late st Contact Info) Description 02/19/2014 Telephone [place] [phone] Lucia Louise, RN Social History Tobacco Use Types Packs/Day Years [...] encounter Miscellaneous Notes * Telephone Encounter - Lucia Louise, RN - 02/19/2014 4:24 PM EDT Vanesa Marrero :1965 Message left: I left a message on answering machine Ms. Marrero at 4:25 PM regarding her upcoming Bilateral lumbar radiofrequency with Dr. Ricky Banerjee DO. Message included the followin. Patient instructed to arrive at 1030 (30 minutes prior to procedure start time) on 02/26/2014 (date of procedure) with their driver service technician. 2. Following instructions left in the message: - Bring Updated list of medications including dosage and reason for taking. - Call the Pain Clinic Nurse at for: ~Procedure instructions. ~If you are taking antibiotics. ~If you have any signs or symptoms of infection, cold or flu. ~If you have any skin breakdown (rashes, cysts, or abscess.) ~If you are taking anticoagulants / blood thinners (Plavix, Pletal, Lovenox, Coumadin, etc). ~If you had any steroid injections anywhere in your body within the last two weeks? 3. If patient NPO: No food after 0500 (6 hours prior to procedure start time); clear fluids only upuntil 0900 (2 hours prior to procedure start time) Lucia Louise RN documented in this encounter Plan of Treatment Scheduled Procedures Name Priority Associated Diagnoses Date/Ti me COLONOSCOPY, DIAGNOSTIC (WRV U 3.26) + cologuard Procedure: Colonoscopy Indication: Positive Cologuard Sedation: MAC Rationale for MAC: MONSE with BiPap, severe obesity with BMI >40 Timeframe: within 3 months Specific provider: first available documented as of this encounter Visit Diagnoses Not on filedocumented in this encounter Care Teams Pipe Fitter Helper Relationship Specialty Start Date End Date Bhumi Ventura APRN [address] [facility] [place] [address] PCP - General 08/23/13 11/13/14 documented as of this encounter
--- OUTSIDE RECORDS SUMMARY | 2024-02-03 01:33 | XMS_ITS | Encounter Summary ---
[place] [address] Care Team Providers Care Compliance Director Name Role Phone Bhumi Ventura APRN Primary Care Provider [phone] Encounter Details Date Type Department Care Team (Late st Contact Info) Description 09/13/2013 External Results [place] [phone] Provider, Scanning Social History Tobacco Use Types Packs/Day Years [...] Name Priority Date/Time Associated Diagnosis Comments XR LUMBAR SPINE 2 OR 3 VIEWS Routine 05/02/2013 documented in this encounter Results * XR lumbar spine 2 or 3 views (05/02/2013) Anatomical Region Laterality Modality L-spine N/A Radiographic Kyara ging Historical Provider MD HONG DX ORDERABLES documented in this encounter Visit Diagnoses Not on filedocumented in this encounter Care Teams Compliance Director Relationship Specialty Start Date End Date Bhumi Ventura APRN [address] [place] [address] PCP - General 08/23/13 11/13/14 documented as of this encounter
--- OUTSIDE RECORDS SUMMARY | 2024-02-03 01:33 | XMS_ITS | Encounter Summary ---
[place] [address] Care Team Providers Care Study Manager Name Role Phone Bhumi Ventura APRN Primary Care Provider [phone] Encounter Details Date Type Department Care Team (Late st Contact Info) Description 05/02/2013 Orders Only [place] [address] Jose C Marroquin PA [facility] [place] [address] Social History Tobacco Use Types Packs/Day Years Used Date Smoking Tobacco: Never Assessed Sex and Gender Information Value Date Recorded Sex Assigned at Not on file Gender Identity Not on file Sexual Orientation Not on file documented as of this encounter Plan of Treatment Pending Results Name Type Priority Associated Diagnoses Date /Time Film Library- Storage only DX Spine Imaging Routine 05/02/2013 11:42 AM EST Scheduled Procedures Name Priority Associated Diagnoses Date/Ti me COLONOSCOPY, DIAGNOSTIC (WRV U 3.26) + cologuard Procedure: Colonoscopy Indication: Positive Cologuard Sedation: MAC Rationale for MAC: MONSE with BiPap, severe obesity with BMI >40 Timeframe: within 3 months Specific provider: first available documented as of this encounter Visit Diagnoses Not on filedocumented in this encounter Care Teams Study Manager Relationship Specialty Start Date End Date Bhumi Ventura APRN [address] [place] [address] PCP - General 08/23/13 11/13/14 documented as of this encounter
--- OUTSIDE RECORDS SUMMARY | 2024-02-03 01:33 | XMS_ITS | Encounter Summary ---
[place] [address] Care Team Providers Care Canvas Cutter Machine Name Role Phone LorenzoBhumi JOHN Primary Care Provider [phone] Encounter Details Date Type Department Care Team (Late st Contact Info) Description 12/07/2013 Telephone [place] [phone] Sena Narayan, RN Social History Tobacco Use Types Packs/Day [...] encounter Miscellaneous Notes * Telephone Encounter - Sena Narayan LPN - 12/07/2013 4:00 PM EDT Vanesa Marrero :1965 Message left: I left a message with mother of Ms. Marrero at 4:02 PM regarding her upcoming Bilateral lumbar radiofrequency with Dr. Ricky Banerjee DO. Message included the followin. Patient instructed to arrive at 2:30 (30 minutes prior to procedure start time) on 6-16-14 (dateof procedure) with their tour driver. 2. Following instructions left in the message: [...] your body within the last two weeks? Sena Narayan LPN documented in this encounter Plan of Treatment Scheduled Procedures Name Priority Associated Diagnoses Date/Ti me COLONOSCOPY, DIAGNOSTIC (WRV U 3.26) + cologuard Procedure: Colonoscopy Indication: Positive Cologuard Sedation: MAC Rationale for MAC: MONSE with BiPap, severe obesity with BMI >40 Timeframe: within 3 months Specific provider: first available documented as of this encounter Visit Diagnoses Not on filedocumented in this encounter Care Teams Canvas Cutter Machine Relationship Specialty Start Date End Date Bhumi Ventura APRN [address] [place] [address] PCP - General 08/23/13 11/13/14 documented as of this encounter
--- OUTSIDE RECORDS SUMMARY | 2024-02-03 01:33 | XMS_ITS | Encounter Summary ---
Author Organization [facility] [place] [address] Care Team Providers Care Academic Computing Director Name Role Phone Jose Akhtar MD Primary Care Provider + Encounter Details Date Type Department Care Team (Late st Contact Info) Description 07/27/2013 Orders [place] [address] Sebastien Kathleen MD [facility] [place] [address] Bilateral knee pain (Primary Dx) Social History Tobacco Use Types [...] first available documented as of this encounter Results * XR JOINT TEAM ALIGNMENT AP LAT SCHUSS SKYLINE (08/23/2013 9:29 AM EST) Anatomical Region Laterality Modality N/A Radiographic Kyara ging 08/23/2013 9:29 AM EST Narrative 08/23/2013 10:01 AM EST Examination JOINT TEAM STANDING ALIGNMENT AP LAT SCHUSS SKYLINE/BILAT Clinical History BILAT KNEE PAIN / DJD 2ND OP :TN: Comparison 05/02/2013. Technique Separate images of the pelvis, knees and feet were acquired in the AP projection with the patient standing. In addition to routine views of the knee, these images were stitched together to form a composite image of the pelvis and legs allowing for evaluation of lower extremity alignment in the weight bearing position. Findings There is marked medial deviation mechanical axis bilaterally right slightly greater than left accompanied by right greater than left genu varus. There is severe medial compartment joint space narrowing of both knees with accompanying subchondral sclerosis and marginal osteophyte formation at all 3 compartments. ??There is bone on bone apposition at the medial compartments. Small to moderate left and probable small right knee joint effusion. ??No acute fracture is identified. ??No significant patellar tilt or subluxation appreciated on the sunrise view. 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 Small to moderate left and probable small right knee joint effusions. ?? No fracture detected. Procedure Note Zoltan Sheikh MD - 08/23/2013 Examination JOINT TEAM STANDING ALIGNMENT AP LAT SCHUSS SKYLINE/BILAT Clinical History BILAT KNEE PAIN / DJD 2ND OP :TN: Comparison 05/02/2013. Technique Separate images of the pelvis, knees and feet were acquired in the AP projection with the patient standing. In addition to routine views of theknee, these images were stitched together to form a composite image of thepelvis and legs allowing for evaluation of lower extremity alignment in the weightbearing position. Findings There is marked medial deviation mechanical axis bilaterally rightslightly greater than left accompanied by right greater than left genu varus. There is severe medial compartment joint space narrowing of both kneeswith accompanying subchondral sclerosis and marginal osteophyte formation atall 3 compartments. There is bone on bone apposition at the medialcompartments. Small to moderate left and probable small right knee joint effusion. Noacute fracture is identified. No significant patellar tilt or subluxation appreciated on the sunrise view. Impression Advanced osteoarthropathy at both knees most severe at the medialcompartments with bilateral genu varus. Small to moderate left and probable small right knee joint effusions. No fracture detected. Sebastien Kathleen MD IMG DX ORDERABLES documented in this encounter Visit Diagnoses Diagnosis Bilateral knee pain- Primary Pain in joint, lower leg Bilateral knee pain Pain in joint, lower leg documented in this encounter Care Teams Academic Computing Director Relationship Specialty Start Date End Date Jose Akhtar MD [address] [place] [address] PCP - General 05/19/10 08/22/13 documented as of this encounter
--- OUTSIDE RECORDS SUMMARY | 2024-02-03 01:33 | XMS_ITS | Encounter Summary ---
[place] [address] Care Team Providers Care Electrician Supervisor Name Role Phone LorenzoBhumi JOHN Primary Care Provider +1 [phone] Encounter Details Date Type Department Care Team (Late st Contact Info) Description 11/20/2013 Telephone [place] [phone] Laura Fishman LPN Social History Tobacco Use Types Packs/Day Years [...] encounter Miscellaneous Notes * Telephone Encounter - Laura Fishman LPN - 11/20/2013 2:16 PM EDT Vanesa Marrero :1965 Contact made with patient: I spoke to Ms. Marrero at 2:16 PM regarding her upcoming Bilateral lumbar radiofrequency scheduled on11/21/13 (date) scheduled at 1400 (time) with Dr. Ricky Banerjee DO. Medication and Allergy reconciliation: 1. Changes were made in the telephone encounter per patient; marked as reviewed, and closed. 2. Patient confirmed no IVP dye allergy. 3. Have you had any steroid injections anywhere in your body within the last two weeks? no Arrival time: The patient was instructed to arrive at 1330 (30 minutes prior to procedure start time - 60 minutesprior for RF patients with a pacemaker) on 11/21/13 (date of procedure). Tensile Tester: The patient was reminded that they need to have a compressed air pile driver operator accompany them to her procedure who will remain onsite. Antibiotics/Skin assessment/Illness symptoms/Pain level assessment : 1. The patient confirmed that she is not taking antibiotics at this time. 2. The patient confirmed that she does not have any rashes, blisters, or skin breakdown on their body. 3. The patient confirmed that she does not have any active infections. 4. The patient confirmed that she does not have any symptoms of illness: fever, chills, cold, flu, nausea, vomiting. 5. The patient confirmed that she isstill experiencing significant pain. (Significant pain is defined as interfering with performing ADL.) Pain and Anti-anxiety Medications: 1. Nerve Block Procedure Patients: Patient was instructed NOT to take their pain medications on theday of the procedure and anti-anxiety medications are part of their daily medication regiment; theycan and should continue taking that medication. 2. All Other Procedure Patients: The patient was instructed that if they take daily pain or anti-anxiety medications, they can and should continue taking on the day of the procedure. Does patient have history of any diagnosed bleeding disorders: No Anticoagulants: No Implant: Patient has pacemaker/defibrillator: No Prior to checking in at [employer] Dusting And Brushing Machine Operator, please be sure to empty your bladder. Patient confirmed understanding that if they do not follow the above their instructions, their procedure is likely to be cancelled. Laura Fishman LPN documented in this encounter Plan of [...] on filedocumented in this encounter Care Teams Electrician Supervisor Relationship Specialty Start Date End Date Bhumi Ventura APRN [address] [place] [address] PCP - General 08/23/13 11/13/14 documented as of this encounter
--- OUTSIDE RECORDS SUMMARY | 2024-02-03 01:33 | XMS_ITS | Encounter Summary ---
[place] [address] Care Team Providers Care Air Chief Marshal Name Role Phone LorenzoCasperBhumi JOHN Primary Care Provider [phone] [phone] Encounter Details Date Type Department Care Team (Late st Contact Info) Description 10/23/2013 Telephone [place] [phone] Sena Castellano, RN Social History Tobacco Use Types Packs/Day [...] Miscellaneous Notes * Telephone Encounter - Sena Castellano, RN - 10/23/2013 4:23 PM EDT Vanesa Marrero :1965 Message left: I left a message with a friend of Ms. Marrero at 4:23 PM regarding her upcoming Bilateral lumbar medial branch block with Dr. Ricky Banerjee DO. Message included the followin. Patient instructed to arrive at 1315 (30 minutes prior to procedure start time) on 10/26/13 (date of procedure) with their medical van driver. 2. Following instructions left in the [...] body within the last two weeks? Sena Castellano RN documented in this encounter Plan of [...] on filedocumented in this encounter Care Teams Air Chief Marshal Relationship Specialty Start Date End Date Bhumi Ventura APRN [address] [place], [place] [address] [place] [address] PCP - General 08/23/13 11/13/14 documented as of this encounter
--- OUTSIDE RECORDS SUMMARY | 2024-02-03 01:33 | XMS_ITS | Encounter Summary ---
[place] [address] Care Team Providers Care Nuclear Medicine Pet Ct Technologist Name Role Phone LorenzoCasperBhumi JOHN Primary Care Provider [phone] Encounter Details Date Type Department Care Team (Late st Contact Info) Description 02/21/2014 Telephone [place] [phone] Juana Jane RN Social History Tobacco Use Types Packs/Day [...] encounter Miscellaneous Notes * Telephone Encounter - Juana Jane RN - 02/21/2014 4:55 PM EDT Vanesa Marrero :1965 Contact made with patient: I spoke to Ms. Marrero at 4:56 PM regarding her upcoming Bilateral lumbar radiofrequency scheduled on02/26/2014 scheduled at 11:[address] Ricky Banerjee DO. Medication and Allergy reconciliation: 1. Changes were made in the telephone encounter per patient; marked as reviewed, and closed. 2. Patient confirmed no IVP dye allergy. 3. Have you had any steroid injections anywhere in your body within the last two weeks? no Arrival time: The patient was instructed to arrive at 10:30 am (30 minutes prior to procedure start time - 60 minutes prior for RF patients with a pacemaker) on 02/26/2014. Pediatrician Active Practice: The patient was reminded that they need to have a pile driver engineer accompany them to her procedure who will [...] vomiting. 5. The patient confirmed that she is still experiencing significant pain. (Significant pain is defined as interfering with performing ADL.) Pain and Anti-anxiety Medications: 1. All Other Procedure Patients: The patient was instructed that if they take daily pain or anti-anxiety medications, they can and should continue taking on the day of the procedure. Does patient have history of any diagnosed bleeding disorders: No Anticoagulants: No NPO instructions given to patient: 1. Last solid food intake until 5:00 am (6 hours prior to procedure). 2. Clear liquids (radha yuri, tea, black coffee, water, grape juice, apple juice, or cranberry juice) only intake until 9:00 am (2 hours prior to procedure). Implant: Patient has pacemaker/defibrillator: No Prior to checking in at 3D Outside Plant Cable Engineer, please be sure to empty your bladder. Patient confirmed understanding that if they do not follow the above their instructions, their procedure is likely to be cancelled. Juana Jane RN documented in this encounter Plan of Treatment Scheduled Procedures Name Priority Associated Diagnoses Date/Ti oh COLONOSCOPY, DIAGNOSTIC (WRV U 3.26) + cologuard Procedure: Colonoscopy Indication: Positive Cologuard Sedation: MAC Rationale for MAC: MONSE with BiPap, severe obesity with BMI >40 Timeframe: within 3 months Specific provider: first available documented as of this encounter Visit Diagnoses Not on filedocumented in this encounter Care Teams Nuclear Medicine Pet Ct Technologist Relationship Specialty Start Date End Date Bhumi Ventura APRN [address] [place] [address] PCP - General 08/23/13 11/13/14 documented as of this encounter
--- OUTSIDE RECORDS SUMMARY | 2024-02-03 01:33 | XMS_ITS | Encounter Summary ---
[place] [address] Care Team Providers Care Explosive Ordnance Manager Name Role Phone LorenzoCasperBhumilouise LOPEZ Primary Care Provider [phone] Reason for Visit * Reason Onset Date Comments Referral 07/25/2013 Encounter Details Date Type Department Care Team (Late st Contact Info) Description 07/25/2013 Telephone [place] [phone] Bony Vaelntin Referral Social History Tobacco Use Types Packs/Day Years Used Date Smoking Tobacco: Never Assessed Sex and Gender Information Value Date Recorded Sex Assigned at Not on file Gender Identity Not on file Sexual Orientation Not on file documented as of this encounter Miscellaneous Notes * Telephone Encounter - Kimmy Ramírez - 08/02/2013 11:37 AM EST I would like you to sign up for [employer], which will give you secure online access to your electronic medical record at [facility] and the ability to communicate with your health care team whenand where it???s most convenient for you. With [employer] you will be able to: - look at parts of your medical record including test results and office notes - send and receive messages to/from me and your other providers - renew prescriptions - schedule appointments. To sign up, go to [email or web address] and click I have an activation code and follow the instructions. Here is your activation code: [email or web address] Expires: 09/16/2013 11:37 AM Remember, [employer] is NOT for urgent needs! Always dial 911 for medical emergencies. * Telephone Encounter - Marguerite Lopez - 07/31/2013 4:29 PM EST Appt. 08/23/13 * Telephone Encounter - nAgelina Melo - 07/27/2013 12:11 PM EST Ask patient to verify the following: COMPLETE Full name: Vanesa Marrero : 1965 Phone number: [phone] (home) Mailing address: [address] [address] Intake: BILAT KNEE PAIN / DJD Is this an injury that happened: NO ?? At work? ?? Playing a sport? ?? If yes to either, what is DOI? Tell me how this how long you've had these symptoms? OVER A YEAR Has anyone ever seen you before for this issue? YES Have you tried: NO ?? Physical Therapy ?? INJECTION ?? Other therapies Have you had any of the following studies for this issue? ?? X-Ray YES - [facility] ?? MRI ?? CT Scan ?? LABS Have you seen an Orthopaedic surgeon for the this issue? YES If YES: Who did you see? DR SHEPPARD Where were you seen (facility)? [facility] When? Have you ever had surgery for this issue? NO If YES and different than above: Who performed surgery? Where did you have the surgery (facility)? When? Phone # Fax# If patient is implanted with hardware fixation or joint prosthesis retrieve OPERATIVE REPORT and IMPLANT STICKERS. * Telephone Encounter - Angelina Melo - 07/27/2013 11:30 AM EST LMOM #2 - Left message for patient to call and schedule an appointment. * Telephone Encounter - Bony Valentin - 07/25/2013 9:01 AM EST I called and left message re referral. documented in this encounter Plan of Treatment Scheduled Procedures Name Priority Associated Diagnoses Date/Ti me COLONOSCOPY, DIAGNOSTIC (WRV U 3.26) + cologuard Procedure: Colonoscopy Indication: Positive Cologuard Sedation: MAC Rationale for MAC: MONSE with BiPap, severe obesity with BMI >40 Timeframe: within 3 months Specific provider: first available documented as of this encounter Visit Diagnoses Not on filedocumented in this encounter Care Teams Explosive Ordnance Manager Relationship Specialty Start Date End Date Bhumi Ventura APRN [address] [place] [address] PCP - General 08/23/13 11/13/14 documented as of this encounter
--- OUTSIDE RECORDS SUMMARY | 2024-02-03 01:33 | XMS_ITS | Encounter Summary ---
Author Organization [facility] [place] [address] Care Team Providers Care Teaching Manager Name Role Phone Roula Bauman APRN Primary Care Provider [phone] Encounter Details Date Type Department Care Team (Late st Contact Info) Description 10/14/2005 [place] [address] Ty Graham MD [facility] [place] [address] Social History Tobacco Use Types Packs/Day Years [...] Priority Date/Time Associated Diagnosis Comments SURGICAL PATHOLOGY REPORT Routine 10/14/2005 2:21 PM EDT documented in this encounter Results * Surgical Pathology Report (10/14/2005 2:21 PM EDT) Surgical Pathology Report [id number] ? Location: The signing pathologist has (i) examined the relevant preparation(s) for the specimen(s) and (ii) rendered or confirmed the diagnosis(es). . ?Pathology Addendum Report Addendum Discussion Molecular testing for mitochondrial disease has been performed by Latrice Leal of [facility] [place]. For the full text of the NI report dated 12/24/2005, please refer to Non-DH Documentation Pathology in the Clinical Information System (CIS). 01/04/06 ALESHA 01/04/06 Verified by: ? Easton Villatoro MD, PhD ?Pathologist ?(Electronic Signature) The attending pathologist whose signature appears on this report has reviewed all diagnostic slides and has edited the gross and/or microscopic portion of the report in rendering the final pathologic diagnosis. ?Pathology Surgical Pathology Final Report Clinical Information Specimen Submitted: A - Muscle tissue. left deltoid. Clinical History: 40 yr. old female with pain all over. weakness and fatigue. See Dr. Asencio's notes in CIS. According to the office note of 04/28/[address] Lucero and Luis M, the patient is a 40-year-old woman with upper extremity weakness and a history of elevated CKs (up to 1650). 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 ??The clinical differential diagnosis includes a metabolic myopathy (carnitine deficiency and endocrine causes are specifically mentioned) and an inflammatory myopathy. ??aje/CHR Gross Description Labeled/Fixative: ? Muscle tissue, left deltoid; fresh. Qty/Size/Weight: ?Multiple, ranging from 0.4 cm to 1.2 cm in length and averaging 0.4cm in diameter. The tissue is received on muscle clamps, some are fragmented. Tissue Description: ?? Red-brown muscle. Sections/Processi ng: ??Submitted, per Dr. Graham's instruction for electron ?microscopy, snap frozen with and without isopentane, and submitted for routine histology. ??(T1) ?aje/EJR Microscopic Description The fragment of tissue submitted in formalin for paraffin embedding and routine processing consists of an adequate sample of skeletal muscle and adipose tissue with infiltration of the fat into the muscle. ??The muscle fibers are of normal size and size distribution. ??The number of centrally placed muscle fiber nuclei is within the range of normal. ??No significant inflammation is identified either within the muscle itself or within the associated adipose tissue. Because the fragments of tissue submitted frozen for histochemical studies are so extremely small, two blocks were sectioned and stained to increase the amount of material available for examination. ??Even so, the number of muscle fibers in those preparations is so small as to make interpretation difficult and not necessarily reliable. ??That said, the material available for histochemical . Microscopic Description studies consists of skeletal muscle infiltrated by fat with fibers of a normal size and size distribution. ??As with the paraffin-embedded material, the number of centrally placed muscle fiber nuclei is within the range of normal, and no significant inflammation is identified. ??The trichrome-stained sections show minor irregularities in a few muscle fibers with an increased amount of small, red-stained structures (presumably mitochondria) arranged in irregular aggregates sometimes around small clefts. The changes are subtle and the abnormal staining is difficult to interpret because of the small amount if tissue available for examination and the presence of significant staining artifact. I do not regard them as diagnositic however possibilities suggested by this appearance include inclusion body myositis, a metabolic myopathy or perhaps a mitochondrial disease. A Congo-red stain for amyloid (seen in inclusion body myositis) is negative. ??The aggregates of what are presumably mitochondria are seen again in the NADH-stained section. ??There is no evidence of fiber-type grouping seen in either the NADH or ATPase-stained sections, however given the extremely small amount of material available for examination, that should not be interpreted as ruling out the possibility of a neuropathic component to this patient's disease. ??PAS stains done with and without diastase pretreatment show what is probably an increased amount of glycogen in the muscle but not enough to suggest the possibility of a glycogen storage disease. ??Oil red O- stained sections show what may be a slight increase in the amount of lipid present in the muscle fibers however they are difficult to interpret because of the small size of the specimen and especially because of the large amount of fat included with the muscle. In addition to the two fragments of tissue submitted frozen in OCT, frozen sections were cut from a third frozen fragment of muscle. ??That piece of tissue consists largely of adipose tissue with only a very small amount of skeletal muscle. Electron Microscopy Interpretation Light microscopy of the plastic embedded material reveals skeletal muscle. Electron microscopy reveals a technically satisfactory preparation of well fixed skeletal muscle. No inclusions of the sort seen in inclusion body myositis are identified. There is a slight increase in the amount of lipid and free cytoplasmic glycogen present (see electronic images 13-15 and 19-23); this is a non-specific change. Occasional lysosomes are present (for example, image 8), but no lysosomes with intralysosomal glycogen are identified. No diagnostically significant ultrastructural abnormalities of mitochondria are identified. Diagnosis Muscle biopsy, left deltoid: ?? Skeletal muscle infiltrated by fat (see Microscopic Description and Comment). CR-0 10/17/05 AJE 10/24/05 Verified by: ? Easton Villatoro MD, PhD ?Pathologist ?(Electronic Signature) The attending pathologist whose signature appears on this report has reviewed all diagnostic slides and has edited the gross and/or microscopic portion of the report in rendering the final pathologic diagnosis. Comment I can not rule out the possibility of what appears to be fatty infiltration of the muscle being due at least in part to the biopsy coming from the margin of the muscle and including adjacent adipose tissue. [facility] 10/14/2005 2:21 PM EDT Ty Graham MD PATHOLOGY/CYTOLOGY [facility] documented in this encounter Visit Diagnoses Not on filedocumented in this encounter Care Teams Teaching Manager Relationship Specialty Start Date End Date Roula Bauman APRN [address] [place] [address] PCP - General 11/14/14 documented as of this encounter
--- OUTSIDE RECORDS SUMMARY | 2024-02-03 01:33 | XMS_ITS | Encounter Summary ---
Author Organization [facility] [place] [address] Care Team Providers Care Thread Marker Name Role Phone Roula Bauman APRN Primary Care Provider [phone] Reason for Visit * Reason Comments Abdominal Pain Encounter Details Date Type Department Care Team (Late st Contact Info) Description 11/13/2014 10:34 PM EDT - 11/14/2014 4:00 AM [place]T [place] [id number] Christine Mackey MD [facility] [place] [address] Abdominal pain, RLQ (right lower quadrant) Discharge Disposition: Home Social History Tobacco Use Types Packs/Day Years Used Date Smoking Tobacco: Every Day Cigarettes 0.5 25 Smokeless Tobacco: Former Quit: [...] 1.3 oz) 11/14/2014 2:14 AM EDT Height - - Body Mass Index 64.42 02/26/2014 11:38 AM EDT documented in this encounter Discharge Instructions * Discharge Instructions* JayNelly small - 11/14/2014 3:22 AM EDT Images from the original note were not included. [facility] Abdominal Pain: After Your Visit Your Care Instructions Abdominal pain has many possible causes. Some aren't serious and get better on their own in a few days. Others need more testing and treatment. If your pain continues or gets worse, you need to be rechecked and may need more tests to find out what is wrong. You may need surgery to correct the problem. Don't ignore new symptoms, such as fever, nausea and vomiting, urination problems, pain that gets worse, and dizziness. These may be signs of a more serious problem. Your doctor may have recommended a follow-up visit in the next 8 to 12 hours. If you are not getting better, you may need more tests or treatment. The doctor has checked you carefully, but problems can develop later. If you notice any problems ornew symptoms, get medical treatment right away. Follow-up care is a martinez part of your treatment and safety. Be sure to make and go to all appointments, and call your doctor if you are having problems. It's also a good idea to know your test resultsand keep a list of the medicines you take. How can you care for yourself at home? ?? Rest until you feel better. ?? To prevent dehydration, drink plenty of fluids, enough so that your urine is light yellow or clear like water. Choose water and other caffeine-free clear liquids until you feel better. If you havekidney, heart, or liver disease and have to limit fluids, talk with your doctor before you increasethe amount of fluids you drink. ?? If your stomach is upset, eat mild foods, such as rice, dry toast or crackers, bananas, and applesauce. Try eating several small meals instead of two or three large ones. ?? Wait until 48 hours after all symptoms have gone away before you have spicy foods, alcohol, and drinks that contain caffeine. ?? Do not eat foods that are high in fat. ?? Avoid anti-inflammatory medicines such as aspirin, ibuprofen (Advil, Motrin), and naproxen (Aleve). These can cause stomach upset. Talk to your doctor if you take daily aspirin for another health problem. When should you call for help? Call 911 anytime you think you may need emergency care. For example, call if: ?? You passed out (lost consciousness). ?? You pass maroon or very bloody stools. ?? You vomit blood or what looks like coffee grounds. ?? You have new, severe belly pain. Call your doctor now or seek immediate medical care if: ?? Your pain gets worse, especially if it becomes focused in one area of your belly. ?? You have a new or higher fever. ?? Your stools are black and look like tar, or they have streaks of blood. ?? You have unexpected vaginal bleeding. ?? You have symptoms of a urinary tract infection. These may include: ?? Pain when you urinate. ?? Urinating more often than usual. ?? Blood in your urine. ?? You are dizzy or lightheaded, or you feel like you may faint. Watch closely for changes in your health, and be sure to contact your doctor if: ?? You are not getting better after 1 day (24 hours). Where can you learn more? Visit our health information library at [email or web address] You can also view health information on [employer], your personal patient account. Log in or sign up today. Enter E907 in the search box to learn more about Abdominal Pain: After Your Visit. ?? [id number] [employer], [place]. Care instructions adapted under license by [facility]. This care instruction is for use with your licensed healthcare professional. If you have questions about a medical condition or this instruction, always ask your healthcare professional. [employer] disclaims any warranty or liability for your use of this information. Content Version: 10.4.410022; Current as of: November 28, 2013 documented in this encounter Medications at Time of Discharge Medication Sig Dispensed Refills Start Date End Date HYDROcodone-acetaminophen 5-325 mg Tablet Take 1 tablet by mouth every 6 hours as needed for Pain. 6 tablet 0 11/14/2014 acetaminophen (TYLENOL) 500 mg Tablet Take 650 mg by mouth 3 times daily. ARIPiprazole (ABILIFY) 5 mg tablet Take 5 [...] 04/01/2005 modafinil (PROVIGIL) 200 mg tablet 04/01/2005 documented as of this encounter ED Notes * Michael Riley RN - 11/14/2014 3:58 AM EDT Pt self transferred to W/C from stretcher and left with family/friends. Alert and oriented x4. Skinwarm pink and dry. NAD at this time. * Christine Mackey MD - 11/14/2014 12:44 AM EDT Vanesa Marrero is an 49 y.o. female who presents to the ED with: Chief Complaint Patient presents with ??? Abdominal Pain I saw this patient 11/14/2014 at 2345 HPI Vanesa Marrero is a 49 y.o. female with a history of MONSE, osteoarthritis, who presents to the Emergency Department with 2 days of RLQ pain. Reports that this started yesterday morning, no precipitating or alleviating factors, no associated symptoms. Denies fever, chills, other constitutional symptoms, nausea, vomiting, diarrhea, constipation, urinary symptoms. Went to her PCP this afternoon who sent her to [facility] ED for evaluation and a CT scan for suspicion of appy, she was unable to get a CT scan there due to size constraints of the scanner. She has copiesof labwork from the outside hospital that are unremarkable, WBC count of 7. Review of Systems: Negative other than mentioned in HPI Physical Exam: Patient Vitals for the past 24 hrs: BP Temp Temp src Pulse Resp SpO2 11/13/14 2245 157/61 mmHg 36.6 ??C (97.9 ??F) Oral 84 18 99 % Gen: well appearing female in NAD HEENT: NCAT CV: RRR no m/r/g Lungs: CTAB no incr WOB Abd: soft, no peritoneal signs. Tender to palpation in RLQ, no rebound. No CVA tenderness +bowel sounds Ext: wwp extremities, no edema ED Course/ MDM Patient was evaluated and discussed with Dr. Mackey I reviewed medications, allergies and past medical history I reviewed patient's labs: UA: pending at discharge I reviewed imaging studies: Ct Abdomen & Pelvis With Contrast 11/14/2014 IMPRESSION: 1. No radiographically evident inflammatory process in the abdomen that wouldhelp explain the patient's symptoms. 2. Scattered colonic diverticula without associated inflammatory change. 3. Hepatomegaly. 4. Probable hepatic cysts. 5. Fat-containing umbilical hernia. This report was reviewed by CHARLIE CHRISTINE at 11/14/2014 2:58 AM Film and interpretation reviewed by the attending Vanesa Marrero is a 49 y.o. female with RLQ abdominal pain. Labwork and her clinical status has been reassuring and CT scan performed this evening did not find any evidence of intraabdominal process. Suspect this is likely musculoskeletal pain that should resolve within a few days. Counseled herthat if her symptoms change, her pain worsens or fails to improve, she should be evaluated by her PCP or may come back to the ED at any time. Return precautions were verbally discussed with Vanesa Marrero and written in discharge instructions. The patient expressed understanding that she could come back to the ED at any time and agreed to the follow-up plan. #RLQ pain - discharge home - follow up with PCP Condition at Discharge: Nelly Boucher MD Resident 11/14/14 0350 ED ATTENDING ADDENDUM: The patient was seen in conjunction with Dr. Jay, the resident physician. I have independentlyperformed the martinez portions of the history and physical exam. I have reviewed all diagnostic studiespersonally including labs, imaging studies and EKG's. I have discussed the details of the case withthe resident and agree with the assessment and plan as described in the resident note above unless n oted otherwise below. Christine Mackey MD 11/14/14 0422 documented in this encounter Miscellaneous Notes * ED Triage - Gus Monk RN - 11/13/2014 10:41 PM EDT 49 yo female, RLQ abd pain x 24 hrs. Pt seen at PCP this am, negative urine dip. Then went to [facility] in [place], labs done. Unable to perform CT at outside facility due to pt's weight, sent to here for evaluation. Stated weight per pt is 394 lbs. Pt reports stabbing pain in RQ. Pt denies n/v/d/fever. Pt arrives with copies of lab work. GCS 15, A&Ox3. Pt arrives with IV in right hand from [facility]. documented in this encounter Plan of Treatment Scheduled Procedures Name Priority Associated Diagnoses Date/Ti ky COLONOSCOPY, DIAGNOSTIC (WRV U 3.26) + cologuard Procedure: Colonoscopy Indication: Positive Cologuard Sedation: MAC Rationale for MAC: MONSE with BiPap, severe obesity with BMI >40 Timeframe: within 3 months Specific provider: first available documented as of this encounter Procedures Procedure Name Priority Date/Time Associated Diagnosis Comments URINALYSIS WITH REFLEX CULTURE STAT 11/14/2014 2:[address] ABDOMEN AND PELVIS W CONTRAST STAT 11/14/2014 2:23 AM EDT documented in this encounter Results * (ABNORMAL) Urinalysis with microscopic (11/14/2014 2:59 AM EDT) Glucose, Urine Dipstick Negative Negative mg/dL ANGINER MILLENNIUM Protein, Urine Dipstick Negative Negative mg/dL CERNER MILLENNIUM Bilirubin, Urine Dipstick Negative Negative mg/dL CERNER MILLENNIUM Comment: Clinical correlation required for positive Urine Bilirubin results as false positive may occur with some drugs and drug related products. If a false positive is suspected a serum total bilirubin should be considered if clinically indicated. Urobilinogen, Urine Dipstick Normal Normal mg/dL CERNER MILLENNIUM pH, Urn (dipstick) 6.0 5.0 - 8.0 CERNER MILLENNIUM Blood, Urine Dipstick Negative Negative mg/dL CERNER MILLENNIUM Ketone, Urine Dipstick Negative Negative mg/dL CERNER MILLENNIUM Nitrite, Urine Dipstick Negative Negative CERNER MILLENNIUM Leukocytes, Urine Dipstick Trace(A) Negative mcL CERNER MILLENNIUM Appearance, Urine Dipstick Hazy(A) Clear CERNER MILLENNIUM Specific [place] Urine Automated 1.021 1.002 - 1.030 CERNER MILLENNIUM Color, Urine Dipstick Yellow Yellow CERNER MILLENNIUM RBC, Urine 1 0 - 4 /HPF CERNER MILLENNIUM WBC, Urine 3 0 - 5 /HPF CERNER MILLENNIUM Bacteria, Urine Rare(A) None /HPF CERN ER MILLENNIUM Squamous Epithelial Cells, Urine 6(H) <=4 /HPF CERNER MILLENNIUM Urine specimen (specimen) 11/14/2014 2:59 AM EDT 11/14/2014 3:04 AM EDT Narrative Resulting Agency Comment Spec In Lab Christine Mackey MD URINE [facility]ABLES [facility] * CT abdomen & pelvis with contrast (11/14/2014 2:23 AM EDT) Anatomical Region Laterality Modality Abdomen, Pelvis Computed Tomogra phy 11/14/2014 2:23 AM EDT Impressions 11/14/2014 3:03 AM EDT IMPRESSION: 1. ??No radiographically evident inflammatory process in the abdomen that would help explain the patient's symptoms. 2. ??Scattered colonic diverticula without associated inflammatory change. 3. ??Hepatomegaly. 4. ??Probable hepatic cysts. 5. ??Fat-containing umbilical hernia. This report was reviewed by CHARLIE CHRISTINE at 11/14/2014 2:58 AM Film and interpretation reviewed by the attending Narrative 11/14/2014 3:03 AM EDT EXAMINATION: ??CT Abdomen / Pelvis With Contrast CLINICAL HISTORY: ??RLQ pain; TN TECHNIQUE: Helical CT of the abdomen and pelvis was performed following the intravenous administration of contrast. 110 cc of Omnipaque 350 was given. ??Oral contrast was administered. COMPARISON: ??None FINDINGS: Lung bases: ??Hypoventilatory dependent changes. No pleural effusion seen. Heart size within normal limits. No pericardial effusion seen. Liver: ??Enlarged. 1.9 cm inferior hepatic fluid attenuation lesion represents a cyst. Bile ducts: ??Nondilated Gallbladder: ??Removed Pancreas: ??Normal Spleen: ??Normal Adrenals: ??Normal Kidneys: ??Normal Phleboliths are noted in the pelvis. Lymph Nodes: ??No enlarged lymph nodes. Bowel: Normal caliber. No adjacent inflammatory changes or wall thickening. The appendix is visualized and is normal. Few scattered colonic diverticula without associated inflammatory change. Peritoneum: No ascites or free air, no fluid collection. Vasculature: Unremarkable. Abdominal wall: A fat-containing periumbilical hernia is present; no abnormal densities seen within the fat. Urinary Bladder: Mildly distended with urine. Reproductive organs: Patient is status post hysterectomy. Ovaries not well evaluated by CT. Bones: No suspicious lesions. Multilevel degenerative changes are noted with vacuum disc phenomenon. Procedure Note Charlie Christine MD - 11/14/2014 EXAMINATION: CT Abdomen / Pelvis With Contrast CLINICAL HISTORY: RLQ pain; TN TECHNIQUE: Helical CT of the abdomen and pelvis was performed followingthe intravenous administration of contrast. 110 cc of Omnipaque 350 was given.Oral contrast was administered. COMPARISON: None FINDINGS: Lung bases: Hypoventilatory dependent changes. No pleural effusion seen.Heart size within normal limits. No pericardial effusion seen. Liver: Enlarged. 1.9 cm inferior hepatic fluid attenuation lesionrepresents a cyst. Bile ducts: Nondilated Gallbladder: Removed Pancreas: Normal Spleen: Normal Adrenals: Normal Kidneys: Normal Phleboliths are noted in the pelvis. Lymph Nodes: No enlarged lymph nodes. Bowel: Normal caliber. No adjacent inflammatory changes or wallthickening. The appendix is visualized and is normal. Few scattered colonic diverticulawithout associated inflammatory change. Peritoneum: No ascites or free air, no fluid collection. Vasculature: Unremarkable. Abdominal wall: A fat-containing periumbilical hernia is present; noabnormal densities seen within the fat. Urinary Bladder: Mildly distended with urine. Reproductive organs: Patient is status post hysterectomy. Ovaries notwell evaluated by CT. Bones: No suspicious lesions. Multilevel degenerative changes are notedwith vacuum disc phenomenon. IMPRESSION IMPRESSION: 1. No radiographically evident inflammatory process in the abdomen thatwould help explain the patient's symptoms. 2. Scattered colonic diverticula without associated inflammatorychange. 3. Hepatomegaly. 4. Probable hepatic cysts. 5. Fat-containing umbilical hernia. This report was reviewed by CHARLIE CHRISTINE at 11/14/2014 2:58 AM Film and interpretation reviewed by the attending Christine Mackey MD IMG CT ORDERABLES documented in this encounter Visit Diagnoses Diagnosis Abdominal pain, RLQ (right lower quadrant) Abdominal pain, right lower quadrant documented in this encounter Administered Medications Inactive Administered Medications - up to 3 most recent administrations Medication Order MAR Action Action Date Dose Rate Site iohexol (OMNIPAQUE) 350 mg/mL solution 38,500 mg 38,500 mg (110 mL), Intravenous, ONCE PRN, 1 dose, Starting on Marlen 11/14/14 at 0223, Until Marlen 11/14/14 at 0223, Per Protocol, Routine Given 11/14/2014 2:23 AM EDT 38,500 mg documented in this encounter Active and Recently Administered Medications Times are shown in EDT. PRN Medication Order 11/12/2014 11/13/2014 11/14/2014 iohexol (OMNIPAQUE) 350 mg/mL solution 38,500 mg (COMPLETED) 38,500 mg (110 mL), Intravenous, ONCE PRN, 1 dose, Starting on Marlen 11/14/14 at 0223, Until Marlen 11/14/14 at 0223, Per Protocol, Routine 0223 (Given - Provid er: Taya Mendez) documented in this encounter Care Teams Thread Marker Relationship Specialty Start Date End Date Roula Bauman APRN [address] [place] [address] PCP - General 11/14/14 documented as of this encounter
--- OUTSIDE RECORDS SUMMARY | 2024-02-03 01:33 | XMS_ITS | Encounter Summary ---
Author Organization [facility] [place] [address] Care Team Providers Care Jet Handler Name Role Phone Roula Bauman APRN Primary Care Provider [phone] Reason for Visit * Reason Comments Skin Lesion Encounter Details Date Type Department Care Team (Late st Contact Info) Description 09/29/2015 10:15 AM EDT Office Visit Dermatology at [facility] [address] [place] [phone] Constance Hanley MD [facility] [place] [address] Dermatofibroma; Prurigo nodularis Social History Tobacco Use Types Packs/Day Years [...] on file documented as of this encounter Patient Instructions * Patient Instructions* Rebekah Martinez - 09/29/2015 11:33 AM EDT - recommend washing lesions once daily with warm water and soap, then apply Vaseline - Discontinue hydrogen peroxide and bacitracin documented in this encounter Progress Notes * Constance Hanley MD - 09/29/2015 11:03 AM EDT DERMATOLOGY - NEW PATIENT NOTE Date of service: 09/29/2015 Vanesa Marrero : 1965 CC: skin lesions/rash HPI: Vanesa Marrero is a 50 y.o. female seen in consultation at the request of Dr. Canseco for the following concerns: - Eroded bumps on the stomach, left leg, buttocks treated with clindamycin 300 mg q 6h x2 weeks (helped a little), bacitracin and peroxide. No itch, asymptomatic. She does not scratch at the areas onpurpose, but does note that she wakes up in the morning with blood under her fingernails. She triedcutting her nails short, but this has not helped. - Lesions present for 4 months - No significant medical changes prior to developing this rash, no trauma, no illness, no new meds - Of note, patient cannot tolerate gabapentin - Also notes an asymptomatic nodule on R lateral leg, seems to be decreasing in size since initially noted Last FSE: none Current sun protection: none Relevant History: Melanoma: no Dysplastic nevi: no SCC: no BCC: no Psoriasis: no Eczema/Atopy: no Immunosuppression: no Malignancy: thyroid Procedure Screening Questions: No Yes Defibrillator/Pacemaker x Artificial Joints x Heart Valves x Blood Thinners x Prophylactic Antibiotics x Family History: Melanoma: no SCC: no BCC: no Psoriasis: no Eczema/Atopy: no Social History: Occupation: Disabled Marital status: single Medical History: Past Medical History Diagnosis Date ??? Musculoskeletal disease 2010 arthritis in knees and neck ??? Breathing problem 2000 sleep apnea-treated with bipap ??? 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 Elevated cholesterol 2006 high triglycerides ??? Chronic pain 2005 myopathy ??? Genital disease, female 1990 hysterectomy -excessive bleeding ??? 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 - Skin: No other skin concerns. Examination: - Constitutional: Patient was alert, well-appearing and in no noticeable distress. - Skin exam: The patient was asked to disrobe to the level of their comfort. Full skin examination of the scalp, hair, head, face, neck, back, chest, abdomen, right and left upper extremities, right and left lower extremities and buttocks was normal with the exception of the findings listed below. Skin Type: 2 Notable findings/Assessment/Plan: 1. Resolving trauma vs dermatofibroma vs. Resolving cyst - 5 mm dermal papule on the right lateral leg without overlying epidermal change - Reviewed benign nature of these skin lesions. No treatment necessary. Call if increasing in size or tender. 2. Prurigo Nodularis - Buttocks, left thigh, and abdomen: 30-40 scattered eroded hypertrophic violaceous pink nodules with hemorrhagic crusting. Overall L side is significantly more involved than R. - Discussed etiology and treatment options. Reviewed association with chronic scratching, picking at these areas - occasionally even during sleep. Discussed importance of keeping the areas covered toavoid further picking and allow healing. - recommend washing lesions once daily with warm water and soap, then apply Vaseline and bandaid asable. Otherwise cover with more fitted clothing at night to prevent scratching. Keep fingernails short. - Discontinue hydrogen peroxide and bacitracin - No evidence of infection today - If not resolved, we will consider: trial of a different SSRI - Of note, patient cannot tolerate gabapentin RTC: 4 weeks to follow up on prurigo or PRN if symptoms worsen or persist. Note initiated by Juana Peng LPN. Rebekah Martinez has performed the documentation for this encounter in the presence of and acting asa scribe for Dr. Hanley. I performed the above scribed service and agree with the accuracy of the documentation in this encounter. Reviewed and signed by: Constance Hanley MD Dermatology [facility] documented in this encounter Plan of Treatment Scheduled Procedures Name Priority Associated Diagnoses Date/Ti me COLONOSCOPY, DIAGNOSTIC (WRV U 3.26) + cologuard Procedure: Colonoscopy Indication: Positive Cologuard Sedation: MAC Rationale for MAC: MONSE with BiPap, severe obesity with BMI >40 Timeframe: within 3 months Specific provider: first available documented as of this encounter Visit Diagnoses Diagnosis Dermatofibroma Benign neoplasm of skin, site unspecified Prurigo nodularis Lichenification and lichen simplex chronicus documented in this encounter Care Teams Jet Handler Relationship Specialty Start Date End Date Roula Bauman APRN [address] [place] [address] PCP - General 11/14/14 documented as of this encounter
--- OUTSIDE RECORDS SUMMARY | 2024-02-03 01:33 | XMS_ITS | Encounter Summary ---
Author Organization [facility] [place] [address] Care Team Providers Care Management Intern Name Role Phone Lorenzo Bhumi LOPEZ Primary Care Provider [phone] Reason for Visit * Reason Comments Back Pain Encounter Details Date Type Department Care Team (Latest Contact Info) Description 12/10/2013 2:30 PM EDT Procedure [place] [address] [facility] [place] [address] Lumbosacral spondylosis without myelopathy (Primary Dx) Discharge Disposition: Home Social History Tobacco Use [...] Sign Reading Time Taken Comments Blood Pressure 132/77 12/10/2013 3:00 PM EDT Pulse 98 12/10/2013 3:00 PM EDT Temperature - - Respiratory Rate 18 12/10/2013 3:00 PM EDT Oxygen Saturation 94% 12/10/2013 3:00 PM EDT Inhaled Oxygen Concentration - - Weight 181.4 kg (400 lb) 12/10/2013 2:48 PM EDT Height 167.6 cm (5' 6) 12/10/2013 2:48 PM EDT Body Mass Index 64.56 12/10/2013 2:48 PM EDT documented in this encounter Patient Instructions * Patient Instructions* America Singer LPN - 12/10/2013 3:04 PM EDT Pain Management Center Discharge Instructions: You were seen by Dr. Ricky Banerjee DO and Josh Stoeks DO who performed Bilateral lumbar radiofrequency. It is normal that the injection site will be sore for up to 48 hours. You may also experience mild stiffness in the joint near the injection site. [x] You may resume your normal activities: tomorrow. You may shower today. DO NOT tub bathe, use whirlpools, hot tubs or pool therapy for 2 days. RemoveBand-Aid(s) later today/tomorrow. Do not drive until tomorrow. Use caution walking/climbing stairs as you may be unsteady on your feet. You may use your usual medications, including pain medications, as directed, unless otherwise instructed. You may use an ice pack as needed for the first 24 hours, on for 20 minutes then off for 20 minutes. Do not apply heat today. Attempt to empty your bladder 4-6 hours after your procedure. During regular business hours, please phone the Pain Management Center at for appointments or with any questions or if the following or other troubling symptoms develop: 1) Prolonged dizziness or weakness (more than 1 day). 2) Localized swelling, redness or drainage at the injection site(s). 3) Temperature of 101 degrees that lasts for more than 4 hours. After 5 PM or on weekends, call and ask for Pain Clinic provider on-call. If you are unable to reach the Pain Management Center and have a complication, please call your Primary Care Provider or proceed to your local emergency department. America Singer LPN Special instructions documented in this encounter Progress Notes * America Singer LPN - 12/10/2013 2:37 PM EDT Pre-Procedure Screening Questions: 1. Status: No 2. Patient states they have a street flusher driver to transport after procedure? Yes 3. Patient taking antibiotics at present? No 4. NPO per Pain Management Center protocol? Yes 5. Patient diabetic: No 6. Patient routinely taking anticoagulants ? No Anticoagulant: Date Stopped: Current INR: Patient Vital Signs documented in Doc Flowsheets associated with this encounter. Patient Discharge Instructions were reviewed with patient and copy provided to patient. IV anxiolysis: Yes IV placement: Location of IV Insertion: [ ] Right [ x ] Left [ x ] hand [ ] anterior forearm [ ] posterior forearm [ ] AC [ ] upper arm [ ] other: IV Gauge: [ ] 24G [x ] 22G [ ] 20G After IV insertion completed, IV was secured with occlusive transparent dressing. IV site is patentand intact. Patient is without complaint upon completion of IV insertion. Started by: ELLY JOEL Initiated by: America Singer LPN IV Solution: LR 1000ml - rate as directed by proceduralist Total Volume Intravenous Fluid infused documented in the Medication Administration Record (MAR) Site condition at IV removal: [x ] Clear [ ] Bruised [ ] other: Administration of IV anxiolysis procedural medications documented in MAR as ordered by proceduralist documented in this encounter Procedure Notes * Josh Stokes DO - 12/10/2013 3:45 PM EDTAssociated Order(s): RADIOFREQUENCY-LUMBAR/SACRAL Procedure(s): RADIOFREQUENCY-LUMBAR/SACRAL Pre-Procedure Diagnose(s): Lumbosacral spondylosis without myelopathy LUMBAR/SACRAL MEDIAL BRANCH RADIOFREQUENCY Date of Service: 12/10/2013 Patient: Vanesa Marrero Provider: JOSH STOKES DO Vanesa Marrero has been referred to the Pain Management Center for radiofrequency treatment of chronic axial back pain. Ms. Marrero has had long standing back pain which is facet joint generated andwhich has been refractory to other therapies. Local anesthetic medial branch blocks resulted in reporting a significant reduction of the usual axial component of pain for at least the duration of the local anesthetic effect. COMMENTS: Ms Marrero had >80% pain relief from LMBB and presents for Lumbar RFA bilateral 3-4-5DR Ms. Marrero was interviewed and the medical record reviewed. There were no medical, pharmacologic, radiographic or other structural contraindications to attempting fluoroscopically guided radiofrequency treatment. Risks and expected side effects as well as potential benefit of the procedure were reviewed with Ms. Marrero, and she voiced concerns addressed. The printed consent form was signed and witnessed. Standard time-out procedure was performed. Ms. Marrero was placed in the prone position on the fluoroscopy table and automated blood pressure cuff and pulse oximeter applied. The skin entry points for approaching the anatomic target points of the segmental medial branches of bilateral L3, L4 and L5-DR were identified with fluoroscopy and marked. Following thorough Chlorhexadine preparation of the skin and draping and 1% lidocaine infiltration of the skin entry points and subcutaneous tissues, a [id number] 20 guage curved needle with a 10mm active tip radiofrequency cannula was placed under fluoroscopic guidance along or across the anatomic course of the sacral ala and L5 transverse process. The needles were advanced to the hub and then a lateral view confirms that there was a significant distance between the needle tip and the targets. The needles were withdrawn and the patient was informed that we did not have canula in stock that were long enough to do the procedure. 7 inch spinal needles were used for the medial branch blocks, a length that exceeds the 15cm canula. Ms. Marrero's vital signs were stable throughout the procedure and were as recorded in the docflowsheet by the nursing staff. If given, dosages of intravenous drugs for anxiolysis and analgesia were documented in the Medication Administration Record (MAR). Follow up plans and appointments were discussed with Vanesa Jocelin Marrero. Post procedure instruction was given as documented in the nursing documentation and having met discharge criteria, she was discharged from the Pain Management Center. COMMENTS: We will contact the device company to see if we can obtain 20cm canula and probes and then follow up with Mrs Marrero by phone. JOSH STOKES DO I was the attending physician supervising the resident in the above care and I was present with theresident for the entire procedure. Ricky Banerjee DO, MPH [facility]-subspecialty board certification in Pain Medicine Attending Physician-Pain Management CC: Bhumijeremiah Ventura, WATER RESOURCE ENGINEER [address] [place] [address] documented in this encounter Plan of Treatment Pending Results Name Type Priority Associated Diagnoses Date /Time XR Fluoro OR c-arm storage only Imaging Routine 12/10/2013 3:32 PM EDT Scheduled Orders Name Type Priority Associated Diagnoses Orde r Schedule XR Fluoro OR c-arm storage only Imaging Routine Once PRN (for Ra diant use) for 1 Occurrences starting 12/10/2013 until 12/10/2013 Scheduled Procedures Name Priority Associated Diagnoses Date/Ti me COLONOSCOPY, DIAGNOSTIC (WRV U 3.26) + cologuard Procedure: Colonoscopy Indication: Positive Cologuard Sedation: MAC Rationale for MAC: MONSE with BiPap, severe obesity with BMI >40 Timeframe: within 3 months Specific provider: first available documented as of this encounter Procedures Procedure Name Priority Date/Time Associated Diagnosis Comments RADIOFREQUENCY-LUMB AR/SACRAL Routine 12/11/2013 12:49 PM EDT Lumbosacral spondylosis without myelopathy documented in this encounter Results * RADIOFREQUENCY-LUMBAR/SACRAL (12/11/2013 12:49 PM EDT) Narrative Ricky Banerjee DO - 12/11/2013 12:49 PM EDT Ricky Banerjee DO ? 12/11/2013 12:49 PM LUMBAR/SACRAL MEDIAL BRANCH RADIOFREQUENCY Date of Service: ??12/10/2013 Patient: ??Vanesa Marrero ?? Provider: ??JOSH STOKES DO Vanesa Marrero has been referred to the Pain Management Center for radiofrequency treatment of chronic axial back pain. ??Ms. Marrero has had long standing back pain which is facet joint generated and which has been refractory to other therapies. ?? Local anesthetic medial branch blocks resulted in Ms. Marrero reporting a significant reduction of the usual axial component of pain for at least the duration of the local anesthetic effect. ?? COMMENTS: Ms Marrero had >80% pain relief from LMBB and presents for Lumbar RFA bilateral 3-4-5DR Ms. Marrero was interviewed and the medical record reviewed. ??There were no medical, pharmacologic, radiographic or other structural contraindications to attempting fluoroscopically guided radiofrequency treatment. ??Risks and expected side effects as well as potential benefit of the procedure were reviewed with Ms. Marrero, and she voiced concerns addressed. ??The printed consent form was signed and witnessed. ??Standard time-out procedure was performed. Ms. Marrero was placed in the prone position on the fluoroscopy table and automated blood pressure cuff and pulse oximeter applied. ??The skin entry points for approaching the anatomic target points of the segmental medial branches of bilateral L3, L4 and L5-DR were identified with ??fluoroscopy and marked. ?? Following thorough Chlorhexadine preparation of the skin and draping and 1% lidocaine infiltration of the skin entry points and subcutaneous tissues, a [id number] 20 guage curved needle with a 10mm active tip radiofrequency cannula was placed under fluoroscopic guidance along or across the anatomic course of the sacral ala and L5 transverse process. The needles were advanced to the hub and then a lateral view confirms that there was a significant distance between the needle tip and the targets. The needles were withdrawn and the patient was informed that we did not have canula in stock that were long enough to do the procedure. ??7 inch spinal needles were used for the medial branch blocks, a length that exceeds the 15cm canula. Ms. Marrero's vital signs were stable throughout the procedure and were as recorded in the docflowsheet by the nursing staff. ??If given, dosages of intravenous drugs for anxiolysis and analgesia were documented in the Medication Administration Record (MAR). Follow up plans and appointments were discussed with Vanesa Marrero. ??Post procedure instruction was given as documented in the nursing documentation and having met discharge criteria, she was discharged from the Pain Management Center. COMMENTS: We will contact the device company to see if we can obtain 20cm canula and probes and then follow up with Mrs Marrero by phone. JOSH STOKES DO I was the attending physician supervising the resident in the above care and I was present with the resident for the entire procedure. Ricky Banerjee DO, MPH [facility]-subspecialty board certification in Pain Medicine Attending Physician-Pain Management CC: Bhumi Ventura, WATER RESOURCE ENGINEER [address] [place] [address] Procedure Note Huch, Josh M, DO - 12/10/2013 3:45 PM EDT LUMBAR/SACRAL MEDIAL BRANCH RADIOFREQUENCY Date of Service: 12/10/2013 Patient: Vanesa Marrero Provider: JOSH STOKES DO Vanesa Marrero has been referred to the Pain Management Center forradiofrequency treatment of chronic axial back pain. Ms. Marrero has hadlong standing back pain which is facet joint generated and which has beenrefractory to other therapies. Local anesthetic medial branch blocksresulted in Ms. Marrero reporting a significant reduction of the usual axialcomponent of pain for at least the duration of the local anestheticeffect. COMMENTS: Ms Marrero had >80% pain relief from LMBB and presents for LumbarRFA bilateral 3-4-5DR Ms. Marrero was interviewed and the medical record reviewed. There were nomedical, pharmacologic, radiographic or other structural contraindicationsto attempting fluoroscopically guided radiofrequency treatment. Risks andexpected side effects as well as potential benefit of the procedure werereviewed with Ms. Marrero, and she voiced concerns addressed. The printedconsent form was signed and witnessed. Standard time-out procedure wasperformed. Ms. Marrero was placed in the prone position on the fluoroscopy table andautomated blood pressure cuff and pulse oximeter applied. The skin entrypoints for approaching the anatomic target points of the segmental medialbranches of bilateral L3, L4 and L5-DR were identified with fluoroscopyand marked. Following thorough Chlorhexadine preparation of the skin anddraping and 1% lidocaine infiltration of the skin entry points andsubcutaneous tissues, a [id number] 20 guage curved needle with a 10mmactive tip radiofrequency cannula was placed under fluoroscopic guidancealong or across the anatomic course of the sacral ala and L5 transverseprocess. The needles were advanced to the hub and then a lateral viewconfirms that there was a significant distance between the needle tip andthe targets. The needles were withdrawn and the patient was informed thatwe did not have canula in stock that were long enough to do the procedure.7 inch spinal needles were used for the medial branch blocks, a lengththat exceeds the 15cm canula. Ms. Marrero's vital signs were stable throughout the procedure and were asrecorded in the docflowsheet by the nursing staff. If given, dosages ofintravenous drugs for anxiolysis and analgesia were documented in theMedication Administration Record (MAR). Follow up plans and appointments were discussed with Vanesa Marrero.Post procedure instruction was given as documented in the nursingdocumentation and having met discharge criteria, she was discharged fromthe Pain Management Center. COMMENTS: We will contact the device company to see if we can obtain 20cmcanula and probes and then follow up with Mrs Marrero by phone. JOSH STOKES DO I was the attending physician supervising the resident in the above careand I was present with the resident for the entire procedure. Ricky Banerjee DO, MPH [facility]-subspecialty board certification in Pain Medicine Attending Physician-Pain Management CC: Bhumi Ventura APRN [address] [place] [address] Ricky Allen DO PROCEDURE/MINOR SURG ICAL ORDERABLES documented in this encounter Visit Diagnoses Diagnosis Lumbosacral spondylosis without myelopathy- Primary documented in this encounter Administered Medications Inactive Administered Medications - up to 3 most recent administrations Medication Order MAR Action Action Date Dose Rate Site lactated ringers infusion 100 mL 100 mL, Intravenous, ONCE, 1 dose, On Tue12/10/13 at 1615 New Bag 12/10/2013 4:15 PM EDT 100 mLs lidocaine (PF) (XYLOCAINE) 10 mg/mL (1 %) injection 100 mg 100 mg, Subcutaneous, ONCE, 1 dose, On Tue12/10/13 at 1615, Wasted 20ml, Routine Given 12/10/2013 4:15 PM EDT 100 mg documented in this encounter Care Teams Management Intern Relationship Specialty Start Date End Date Bhumi Ventura APRN [address] [facility] [place] [address] PCP - General 08/23/13 11/13/14 documented as of this encounter
--- OUTSIDE RECORDS SUMMARY | 2024-02-03 01:33 | XMS_ITS | Encounter Summary ---
Author Organization [facility] [place] [address] Care Team Providers Care Forestry Fire Aide Name Role Phone EugeneBhumi Bolanos JOHN Primary Care Provider Reason for Visit * Reason Comments Low Back Pain Encounter Details Date Type Department Care Team (Late st Contact Info) Description 10/26/2013 11:00 AM EDT Office [place] [id number] Jahaira Hernandez, PT [facility] EugeneCiciBhumiJOHN [address], [place] [id number] Sebastien Kathleen MD [facility] [place] [address] Mechanical low back pain Discharge Disposition: Home Social History Tobacco Use [...] on file documented as of this encounter Progress Notes * Jahaira Hernandez, PT - 10/26/2013 11:56 AM EDT Spine Center Physical Therapy Note Referring provider: Jose C MENSAH Diagnosis: 1. Mechanical low back pain 2. Facet joint arthropathy Date of onset: 25 years ago with worsening pain the past 2-3 years Work Status: Disabled Medicare Certification Period: 10/03/2013- 01/02/2014 Subjective: Ms. Marrero reports overall her pain remains unchanged and the home exercise program has been well. She is scheduled to meet with the Pain Clinic later today for medial nerve branch blocks.Ms. Marrero currently complains of low back pain, right equal to left. The pain is rated 2/10 at its least and 8/10 at its worst. She denies lower extremity numbness, tingling, and weakness. Symptoms worsen when standing, walking, and turning. Symptoms ease when sitting, bending, or lying down. Sleepis significantly disturbed due to her painful knees and low back. Functionally, she is able to walk5 minutes and stand 5 minutes at a time only. Walking while leaning onto a shopping cart allows herto walk further with less discomfort. Objective: Ms. Marrero returns today for a scheduled follow up appointment. She moves about in the exam room with slow and guarded movements and appears comfortable while seated. Sitting posture is poor. She to to use the hand with the lumbar spine in flexion in her hips and knees flexed to 20-30??. Active range of motion of the lumbar spine is limited to 60?? flexion and 0?? extension. Endrange extension and extension combined with right and left sidebending also reproduces the low back pain. She requires the use of her upper extremities when rising from a seated position and when returning tositting from standing due to poor lower extremities eccentric strength. She continues to walk at a slow pace with a significant forward lean. With support she is able to take a few steps on heels/toes and squat through 1/3 of the range. Squatting is limited due to worsening low back in the pain. Abdominal and trunk extensor strength is 2+/5. Slouched sitting lessens the pain while sitting fully erect worsens it. Repeated movement testing of the lumbar spine once again revealed a directional preference toward flexion. Treatment Received: Discussed the natural history of low back pain in the context of facet joint arthropathy and the rational for exercise based treatment. Patient Education/ Home Exercise Program: Reviewed and modified Ms. Marrero 's home exercise program.The home exercise program now includes pelvic tilt, bridging, active extension in prone, intermediate alternate arm and leg lift, and/camel stretch on all fours in the morning and once again at bedtime. She was strongly encouraged to gradually progress her walking program. Assessment: Ms. Marrero' range of motion and trunk strength is improving and is now ready to progressthe home exercise program. Goals: 1. Independent with home exercise program 2. Able to stand without discomfort 3. Able to walk without discomfort Plan: Follow up in 2 weeks to reassess and progress the home exercise program. Ms. Marrero was encouraged to call with any questions or concerns regarding todays visit or the home exercise program. Length of visit: A total of 25 minutes was spent re-assessing, treating, and instructing Vanesa Marrero in a home exercise program. Medicare Therapy G-Code Date Tracking: (Update G-Code status every 10 visits or when code changes) 1 2 3 4 5 6 7 8 9 10 /9 10/26 documented in this encounter Plan of Treatment Scheduled Procedures Name Priority Associated Diagnoses Date/Ti me COLONOSCOPY, DIAGNOSTIC (WRV U 3.26) + cologuard Procedure: Colonoscopy Indication: Positive Cologuard Sedation: MAC Rationale for MAC: MONSE with BiPap, severe obesity with BMI >40 Timeframe: within 3 months Specific provider: first available documented as of this encounter Visit Diagnoses Diagnosis Mechanical low back pain Lumbago documented in this encounter Care Teams Forestry Fire Aide Relationship Specialty Start Date End Date Bhumi Ventura APRN [address] [place] [address] PCP - General 08/23/13 11/13/14 documented as of this encounter
--- OUTSIDE RECORDS SUMMARY | 2024-02-03 01:33 | XMS_ITS | Encounter Summary ---
Author Organization [facility] Address [facility] [place] [address] Care Team Providers Care Card Placer Name Role Phone Bhumi Ventura APRN Primary Care Provider [phone] Encounter Details Date Type Department Care Team (Latest Contact Info) Description 08/23/2013 8:32 AM EST - 08/23/2013 12:37 PM [facility] Hospital Encounter XRay at [facility] [address] [place] [address] Bilateral knee pain Social History Tobacco Use [...] needed. 02/21/2014 documented as of this encounter Miscellaneous Notes * Miscellaneous - Provider, Scanning - 08/30/2013 9:38 AM EST * Miscellaneous - Provider, Scanning - 08/30/2013 9:34 AM EST documented in this encounter Plan of Treatment Scheduled Procedures Name Priority Associated Diagnoses Date/Ti me COLONOSCOPY, DIAGNOSTIC (WRV U 3.26) + cologuard Procedure: Colonoscopy Indication: Positive Cologuard Sedation: MAC Rationale for MAC: MONSE with BiPap, severe obesity with BMI >40 Timeframe: within 3 months Specific provider: first available documented as of this encounter Procedures Procedure Name Priority Date/Time Associated Diagnosis Comments XR JOINT TEAM ALIGNMENT AP LAT SCHUSS SKYLINE Routine 08/23/2013 9:29 AM EST Bilateral knee pain documented in this encounter Results * XR JOINT TEAM [...] leg documented in this encounter Care Teams Card Placer Relationship Specialty Start Date End Date Bhumi Ventura APRN [address] [place] [address] PCP - General 08/23/13 11/13/14 documented as of this encounter
--- OUTSIDE RECORDS SUMMARY | 2024-02-03 01:33 | XMS_ITS | Encounter Summary ---
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 Name Role Phone Bhumi Ventura APRN Primary Care Provider [phone] Reason for Referral * Surgical (Routine) - Closed Specialty Diagnoses / Procedures Referred By Contac t Referred To Contact Orthopaedics Diagnoses Bilateral knee pain Jim Ferreira PA [facility] [place] [address] [address] [place] [address] [place] [address] Referral ID Status Reason Start Date Expiration Date V isits Requested Visits Authorized [id number] Closed Consult, Test & Treat 08/23/2013 02/19/2014 1 1 * Psychiatric (Routine) - Complete - Unable to Contact Patient Specialty Diagnoses / Procedures Referred By Contac t Referred To Contact Psychiatry Diagnoses Bilateral knee pain Jim Ferreira PA [facility] [place] [address] Marychuy Wood I, PhD [facility] [place] [address] Referral ID Status Reason Start Date Expiration Date Visits Requested Visits Authorized [id number] Complete - Unable to Contact Patient Consult, Test & Treat 08/23/2013 02/19/2014 1 1 * Physical Therapy (Routine) - Closed by system - unspecified Specialty Diagnoses / Procedures Referred By Contac t Referred To Contact Physical Therapy Diagnoses Bilateral knee pain Jim Ferreira PA [facility] [place] [address] Referral ID Status Reason Start Date Expiration Date Visits Requested Visits Authorized [id number] Closed by system - unspecified Evaluate and Treat 08/23/2013 02/19/2014 20 20 Reason for Visit * Reason Comments Bilateral Knee Pain Encounter Details Date Type Department Care Team (Late st Contact Info) Description 08/23/2013 8:50 AM EST [place] [address] Sebastien Kathleen MD [facility] [place] [address] Jim Ferreira PA [facility] [place] [address] Bilateral knee pain (Primary Dx) Discharge Disposition: Home Social History Tobacco Use Types Packs/Day Years Used Date Smoking Tobacco: Every Day Cigarettes 0.5 25 Smokeless Tobacco: Never Tobacco Cessation:Ready to Q uit: No Alcohol Use Standard Drinks/Week Comments Yes 0 (1 standard drink = 0.6 oz pur e alcohol) Sex and Gender Information Value Date Recorded Sex Assigned at Not on file Gender Identity Not on file Sexual Orientation Not on file documented as of this encounter Last Filed Vital Signs Vital Sign Reading Time Taken Comments Blood Pressure 135/79 08/23/2013 9:43 AM EST radial right arm Pulse 90 08/23/2013 9:43 AM EST Temperature - - Respiratory Rate - - Oxygen Saturation - - Inhaled Oxygen Concentration - - Weight 179.4 kg (395 lb 6.4 oz) 08/23/2013 9:43 AM EST with shoes on Height 167.6 cm (5' 6) 08/23/2013 9:43 AM EST Body Mass Index 63.82 08/23/2013 9:43 AM EST documented in this encounter Progress Notes * Jim Ferreira - 08/23/2013 9:58 AM EST Subjective: Patient ID: Vanesa Marrero is a 48 y.o. female. HPI This is a 48yo female here for bilateral knee pain. She admits to progressive knee pain for past 5 years. Had 100lb weight gain in past year.Admits to 2 injuries to left knee, with walking felt apop. Another time fell on ice, with left knee flexed. She is taking Feldene and Tylenol. Using Tylenol for the morning. She has been on Feldene for past 2 months, feels the night pain is less. Walking is limited to 2-3 minutes, then she needs to sit. Has been trying to use a glider at home, but is painfull. Has tried her daughters treadmill. Stairwalking is more difficult going up. Prolong sitting or standing in one spot is tender. Mornings are met with stiffness and pain for 12 steps, then warms up some. Today: sitting here, pain level is a 4. With walking the pain is a 8. She is working with PCP concerning the weight gain. 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 Smokes 1/2 ppd x 25 years. ETOH/ few times a year Activities; limited to sedentary, puzzles/ computer and reading. Light house work. Does not drive. PSHx: TOngue surgery/biopsey / [facility]. Gall bladder, Abdominal hernia/ 2012 FMHx: mother/TKA at age 75yo, DM, Past Surgical History Procedure Date ??? Unlisted evaluation service 1991 subtotal thyroidectomy -radiation ??? Throat surgery procedure unlisted 2013 tongue surgery ??? Genital surg proc, female unlisted 1990 subtotal hysterectomy ??? Cranio/maxillofacial surg unlisted unknown wisdom teeth extraction Patient Active Problem List Diagnosis Code ??? Bilateral knee pain 719.46 ??? Depression 311 ??? Thyroid disease 246.9 Other medical conditions: Anxiety, Agoraphobia Review of Systems DENIES : SOB, URINARY OR BOWEL PROBLEMS. NO SKIN PROBLEMS BALANCE ISSUES, LOWER OR UPPER EXTREMITY SWELLING, OTHER JOINT PROBLEMS, NUMBNESS & TINGLING , VISUAL PROBLEMS, HEENT Currently at end of a 'cold', feeling better. Admits to low back pain/ is primary cause of discomfort. Also some hip pain. Objective: Physical Exam 5'6 395lbs BILATERAL KNEE EXAM Appears comfortable Antalgic gait without support Varus deformity Poor muscle tone and poor balance Able to transfer with hands on chair Skin intact to knee and legs. But the bilateral plantar feet with thick callus and fissures. Pulses 2 plus Sensory intact I have made the following determinations: Knee Exam: Right Prior surgery on this joint: No Gait Abnormality: Antalgic Knee ROM: Extension:5 Flexion: 120 Alignment: 5-10 degrees Varus Stability: A/P Translation <5mm. Varus (lateral stability) <5mm Valgus (medial stability) <5mm Extension La degrees or less Radiographic evidence of joint damage: [0= normal; 1=minimal ; 2= some osteophytes , some narrowing ; 3= moderate osteophytes, significantnarrowing, mild deformity; 4= large osteophytes, marked narrowing, obvious deformity]: 4= large osteophytes, marked narrowing, obvious deformity Patella Tracking: Normal Skin Integrity: Normal Pulses Palpable: Right PT: Yes Right DP:Yes Motor/Sensory: Distal Motor: Normal Distal Sensory: Normal Quadriceps Strength: 4 I have made the following determinations: Knee Exam: Left Prior surgery on this joint: Yes Gait Abnormality: Antalgic Knee ROM: Extension:5 Flexion: 120 Alignment: 5-11 degrees Varus Stability: A/P Translation <5mm Varus (lateral stability) <5mm Valgus (medial stability) <5mm Extension La degrees or less Radiographic evidence of joint damage: [0= normal; 1=minimal ; 2= some osteophytes , some narrowing ; 3= moderate osteophytes, significantnarrowing, mild deformity; 4= large osteophytes, marked narrowing, obvious deformity]: 4= large osteophytes, marked narrowing, obvious deformity Patella Tracking: Normal Skin Integrity: Normal Pulses Palpable: Left PT:Yes Left DP:Yes Motor/Sensory: Distal Motor:Normal Distal Sensory: Normal Quadriceps Strength:4 IMAGES REVIEWED INDEPENDENTLY Severe tricompartment osteoarthritis. Medial bone on bone. Assessment and Plan: Bilateral knee severe arthritis 2. Low back pain 3/. Obesity Patient seen with Dr. Kathleen We discussed the Arthritis ladder of care. She would like to try bilateral knee injections today. Referral to Spine Clinic, REhab for pool therapy, and to Behavorial medicine for Sleep Eating disorder. Instructed on how to use walking sticks or walker. Her daughter is going to make some poles. Encourage weight loss, working with nutrition department. Will f/u as needed. Discussed using Diabeta derm cream and to use nightly on feet. documented in this encounter Plan of Treatment Scheduled Procedures Name Priority Associated Diagnoses Date/Ti me COLONOSCOPY, DIAGNOSTIC (WRV U 3.26) + cologuard Procedure: Colonoscopy Indication: Positive Cologuard Sedation: MAC Rationale for MAC: MONSE with BiPap, severe obesity with BMI >40 Timeframe: within 3 months Specific provider: first available Scheduled Referrals Name Type Priority Associated Diagnoses Order Schedule Referral to Physical Therapy Outpatient Referral Routine Bilateral knee pain Ordered: 08/23/2013 Referral to Psychiatry Outpatient Referral Routine Bilateral knee pain Ordered: 08/23/2013 Referral to Sp[facility] Outpatient Referral Routine Bilateral knee pain Ordered: 08/23/2013 documented as of this encounter Results * XR Fluoro injection FL drain large JT (08/23/2013 2:34 PM EST) Anatomical Region Laterality Modality N/A Radiographic Kyara ging 08/23/2013 2:34 PM EST Impressions 08/27/2013 2:31 PM EST IMPRESSION: Uneventful bilateral knee injection under fluoroscopy. ?? Resident/Fellow: Gerardo ?? Attending: Toney ?? I, Arthur Ziegler MD was present with the resident for [...] 2. PAIN SCORE: ?? Right ?? Before: ?? After: ?? Left ?? Before: ?? After: ?? 3. Medications: ?? 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
--- OUTSIDE RECORDS SUMMARY | 2024-02-03 01:33 | XMS_ITS | Encounter Summary ---
Author Organization [facility] [place] [address] Care Team Providers Care Line Crewman Name Role Phone Lorenzo Bhumi LOPEZ Primary Care Provider [phone] Reason for Visit * Reason Comments Back Pain Encounter Details Date Type Department Care Team (Latest Contact Info) Description 11/21/2013 1:30 PM EDT Procedure [place] [address] [facility] [facility] [place] [address] Lumbosacral spondylosis without myelopathy Discharge Disposition: Home Social History Tobacco Use [...] Sign Reading Time Taken Comments Blood Pressure 113/63 11/21/2013 2:03 PM EDT Pulse 81 11/21/2013 2:03 PM EDT Temperature - - Respiratory Rate 16 11/21/2013 2:03 PM EDT Oxygen Saturation 93% 11/21/2013 2:03 PM EDT Inhaled Oxygen Concentration - - Weight 180.1 kg (397 lb) 11/21/2013 1:36 PM EDT Height 166.4 cm (5' 5.5) 11/21/2013 1:36 PM EDT Body Mass Index 65.06 11/21/2013 1:36 PM EDT documented in this encounter Patient Instructions * Patient Instructions* America Singer, OCCUPATIONAL SAFETY SPECIALIST - 11/21/2013 1:45 PM EDT Pain Management Center Discharge Instructions: You were seen by Dr. Arsen Paul DO who performed lumbar medial branch block. It is normal that the injection site [...] your bladder 4-6 hours after your procedure. You received the following medications: Lidocaine. During regular business hours, please phone the [...] or proceed to your local emergency department. Special Instructions Pain [facility] Post -Procedure Pain Log Patient: Vanesa Marrero [id number] It is important for you to keep track of your pain after your procedure that took place 11/21/2013. This information will help your Provider to determine how to help reduce your pain. Today you had a procedure for pain in your back. Your pain level before the procedure in this area was 5/10. Your pain level immediately after your procedure was 2/10. Time Pain Score Comments 1 hour 2 hours 3 hours 4 hours Please call the nurse in the Pain Management Center a day or two after your procedure and report the information above. She will assess your response to the procedure, and will recommend appropriate follow-up. documented in this encounter Progress Notes * America Singer LPN - 11/21/2013 1:37 PM EDT Pre-Procedure Screening Questions: 1. Status: No 2. 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 Yes 3. Patient taking antibiotics at present? No 4. NPO per Pain Management Center protocol? No 5. Patient diabetic: No 6. Patient routinely taking anticoagulants ? No Patient Vital Signs documented in Doc Flowsheets associated with this encounter. Patient Discharge Instructions were reviewed with patient and copy provided to patient. documented in this encounter Procedure Notes * Linda May - 11/21/2013 2:05 PM EDTAssociated Order(s): NERVE BLOCK - LUMBOSACRAL Procedure(s): NERVE BLOCK - LUMBOSACRAL Pre-Procedure Diagnose(s): Lumbosacral spondylosis without myelopathy LUMBAR/SACRAL MEDIAL BRANCH BLOCKS Date of Service: 11/21/2013 Patient: Vanesa Marrero Provider: LINDA MAY MD Vanesa Marrero has been referred to the Pain Management Center for lumbar/sacral medial branch blocks. COMMENTS: Pt is having second test of LMBB, she responded well to marcaine last time. Ms. Marrero was interviewed and the medical record reviewed. There were no medical, pharmacologic, radiographic or other structural contraindications to attempting fluoroscopically guided local anesthetic lumbar/sacral medial branch blocks. Risks, potential side effects, and potential benefits of theprocedure were reviewed with Ms. Marrero and her voiced concerns were addressed. After it wsa clearedthat the patient was fully informed about the procedure, the printed consent form was signed. Standard time-out procedure was performed. Ms. Marrero was placed in the prone position on the fluoroscopy table and automated blood pressure cuff and pulse oximeter applied. The skin entry points for approaching the anatomic target points of the segmental medial branches of the bilateral L4 - L5, L5-S1 nerve roots were identified with fluoroscopy and marked. The skin was thoroughly prepared with a Chlorhexadine preparation and draped usingsterile technique. Next, I used a 25G 1.5 needle to infiltrate the skin entry pionts with a mixtureof 9cc of 1% lidocaine mixed with 1cc of sodium bicarbonate. After adequate local anesthesia was obtained at the skin entry points, I placed a 7 inch 22G spinal needle using the assistance of fluoroscopic guidance down on to the target point for each respective segmental medial branch. Correct positioning was confirmed in A/P, oblique and lateral views. Once correct needle position was confirmed,0.5ml 0.5% bupivicaine was injected at each medial branch. Ms. Howells vital signs were stable throughout the procedure and were as recorded in the docflowsheet by the nursing staff. Follow up plans and appointments were discussed with Ms. Marrero. Ms. Marrero was instructed to keep careful note of how the usual pain was modified by these injections. Provacative testing using the Gotti's facet loading test Right side Left side Directly before the block VAS (0-10) = 5 VAS (0-10) = 4 5 minutes after the block VAS (0-10) = 3 VAS (0-10) = 2 Percentage relief obtained with this diagnostic block 40% 50% Any improved physical functioning directly after the blocks? stretching I recommend that we proceed on with medial branch radiofrequency ablation at the bilateral L4-L5, L5-S1 facet joint levels secondary to the positive results from today's diagnostic blocks. We would expect to denervate a total of 4 facets during the radiofrequency ablation. Mrs. Marrero exhibits mechanical low back pain and no obvious radicular signs or symptoms and she has no history of spinal fusion at these facet levels. She exhibits pathology on MRI consistent with the facet joints as being the major low back pain generator. Ms. Marrero and I discussed this procedure at length. All significantrisks, benefits, indications, and alternatives were discussed with the patient. The patient does consent to proceed forward with this treatment plan. Post procedure instructions were given as documented in the nursing documentation. Having met discharge criteria, she was discharged from the Pain Management Center. COMMENTS: Pt tolerated the procedure well. Of note, she is very obese and we had to hub the 7 inch needles to get the location of the medial branches. I was the attending physician supervising the resident in the above care and I was present with theresident for the entire procedure. ARSEN PAUL DO, MPH ABPMR-subspecialty board certification in Pain Medicine Attending Physician-Pain Management CC: MAKENNA Patel [facility] [place] [address] documented in this encounter Plan of Treatment Pending Results Name Type Priority Associated Diagnoses Date /Time XR Fluoro OR c-arm storage only Imaging Routine 11/21/2013 2:28 PM EDT Scheduled Orders Name Type Priority Associated Diagnoses Orde r Schedule XR Fluoro OR c-arm storage only Imaging Routine Once PRN (for Ra diant use) for 1 Occurrences starting 11/21/2013 until 11/21/2013 Scheduled Procedures Name Priority Associated Diagnoses Date/Ti me COLONOSCOPY, DIAGNOSTIC (WRV U 3.26) + cologuard Procedure: Colonoscopy Indication: Positive Cologuard Sedation: MAC Rationale for MAC: MONSE with BiPap, severe obesity with BMI >40 Timeframe: within 3 months Specific provider: first available documented as of this encounter Procedures Procedure Name Priority Date/Time Associated Diagnosis Comments NERVE BLOCK - LUMBOSACRAL Routine 11/22/2013 12:40 PM EDT Lumbosacral spondylosis without myelopathy documented in this encounter Results * NERVE BLOCK - LUMBOSACRAL (11/22/2013 12:40 PM EDT) Narrative Arsen Paul DO - 11/22/2013 12:40 PM EDT Arsen Paul DO ? 11/22/2013 12:40 PM LUMBAR/SACRAL MEDIAL BRANCH BLOCKS Date of Service: ??11/21/2013 Patient: ??Vanesa Marrero ?? Provider: ??LINDA MAY MD Vanesa Marrero has been referred to the Pain Management Center for lumbar/sacral medial branch blocks. ?? COMMENTS: Pt is having second test of LMBB, she responded well to marcaine last time. Ms. Marrero was interviewed and the medical record reviewed. ??There were no medical, pharmacologic, radiographic or other structural contraindications to attempting fluoroscopically guided local anesthetic lumbar/sacral medial branch blocks. ??Risks, potential side effects, and potential benefits of the procedure were reviewed with Ms. Marrero and her voiced concerns were addressed. ?? After it wsa cleared that the patient was fully informed about the procedure, the printed consent form was signed. ??Standard time-out procedure was performed. Ms. Marrero was placed in the prone position on the fluoroscopy table and automated blood pressure cuff and pulse oximeter applied. ??The skin entry points for approaching the anatomic target points of the segmental medial branches of the bilateral L4 - L5, L5-S1 nerve roots were identified with fluoroscopy ??and marked. ??The skin was thoroughly prepared with a Chlorhexadine preparation and draped using sterile technique. ??Next, ??I used a 25G 1.5 needle to infiltrate the skin entry pionts with a mixture of 9cc of 1% lidocaine mixed with 1cc of sodium bicarbonate. After adequate local anesthesia was obtained at the skin entry points, I placed a 7 inch 22G spinal needle using the assistance of fluoroscopic guidance down on to the target point for each respective segmental medial branch. Correct positioning was confirmed in A/P, oblique and lateral views. Once correct needle position was confirmed, 0.5ml 0.5% bupivicaine was injected at each medial branch. ?? Ms. Howells vital signs were stable throughout the procedure and were as recorded in the docflowsheet by the nursing staff. Follow up plans and appointments were discussed with Ms. Marrero. Ms. Marrero was instructed to keep careful note of how the usual pain was modified by these injections. ?? Provacative testing using the Gotti's facet loading test Right side Left side Directly before the block ??VAS (0-10) = 5 VAS (0-10) = 4 5 minutes after the block VAS (0-10) = 3 VAS (0-10) = 2 Percentage relief obtained with this diagnostic block 40% 50% Any improved physical functioning directly after the blocks? stretching I recommend that we proceed on with medial branch radiofrequency ablation at the bilateral L4-L5, L5-S1 facet joint levels secondary to the positive results from today's diagnostic blocks. We would expect to denervate a total of 4 facets during the radiofrequency ablation. Mrs. Marrero exhibits mechanical low back pain and no obvious radicular signs or symptoms and she has no history of spinal fusion at these facet levels. ??She exhibits pathology on MRI consistent with the facet joints as being the major low back pain generator. Ms. Marrero and I discussed this procedure at length. ??All significant risks, benefits, indications, and alternatives were discussed with the patient. ?? The patient does consent to proceed forward with this treatment plan. ?? Post procedure instructions were given as documented in the nursing documentation. Having met discharge criteria, she was discharged from the Pain Management Center. COMMENTS: Pt tolerated the procedure well. Of note, she is very obese and we had to hub the 7 inch needles to get the location of the medial branches. I was the attending physician supervising the resident in the above care and I was present with the resident for the entire procedure. ARSEN PAUL DO, MPH ABPMR-subspecialty board certification in Pain Medicine Attending Physician-Pain Management CC: MAKENNA Patel [facility] [place] [address] Procedure Note Linda May - 11/21/2013 2:05 PM EDT LUMBAR/SACRAL MEDIAL BRANCH BLOCKS Date of Service: 11/21/2013 Patient: Vanesa Marrero Provider: LINDA MAY MD Vanesa Marrero has been referred to the Pain Management Center forlumbar/sacral medial branch blocks. COMMENTS: Pt is having second test of LMBB, she responded well to marcainelast time. Ms. Marrero was interviewed and the medical record reviewed. There were nomedical, pharmacologic, radiographic or other structural contraindicationsto attempting fluoroscopically guided local anesthetic lumbar/sacralmedial branch blocks. Risks, potential side effects, and potentialbenefits of the procedure were reviewed with Ms. Marrero and her voicedconcerns were addressed. After it wsa cleared that the patient was fullyinformed about the procedure, the printed consent form was signed.Standard time-out procedure was performed. Ms. Marrero was placed in the prone position on the fluoroscopy table andautomated blood pressure cuff and pulse oximeter applied. The skin entrypoints for approaching the anatomic target points of the segmental medialbranches of the bilateral L4 - L5, L5-S1 nerve roots were identified withfluoroscopy and marked. The skin was thoroughly prepared with aChlorhexadine preparation and draped using sterile technique. Next, Iused a 25G 1.5 needle to infiltrate the skin entry pionts with a mixtureof 9cc of 1% lidocaine mixed with 1cc of sodium bicarbonate. Afteradequate local anesthesia was obtained at the skin entry points, I placeda 7 inch 22G spinal needle using the assistance of fluoroscopic guidancedown on to the target point for each respective segmental medial branch.Correct positioning was confirmed in A/P, oblique and lateral views. Oncecorrect needle position was confirmed, 0.5ml 0.5% bupivicaine was injectedat each medial branch. Ms. Howells vital signs were stable throughout the procedure and were asrecorded in the docflowsheet by the nursing staff. Follow up plans and appointments were discussed with Ms. Marrero. Ms. Doshias instructed to keep careful note of how the usual pain was modified bythese injections. Provacative testing using the Gotti's facet loading test Right side Leftside Directly before the block VAS (0-10) = 5 VAS (0-10) = 4 5 minutes after the block VAS (0-10) = 3 VAS (0-10) = 2 Percentage relief obtained with this diagnostic block 40% 50% Any improved physical functioning directly after the blocks? stretching I recommend that we proceed on with medial branch radiofrequency ablationat the bilateral L4-L5, L5-S1 facet joint levels secondary to the positiveresults from today's diagnostic blocks. We would expect to denervate atotal of 4 facets during the radiofrequency ablation. Mrs. Marrero exhibitsmechanical low back pain and no obvious radicular signs or symptoms andshe has no history of spinal fusion at these facet levels. She exhibitspathology on MRI consistent with the facet joints as being the major lowback pain generator. Ms. Marrero and I discussed this procedure at length.All significant risks, benefits, indications, and alternatives werediscussed with the patient. The patient does consent to proceed forwardwith this treatment plan. Post procedure instructions were given as documented in the nursingdocumentation. Having met discharge criteria, she was discharged from [facility]. COMMENTS: Pt tolerated the procedure well. Of note, she is very obese andwe had to hub the 7 inch needles to get the location of the medialbranches. I was the attending physician supervising the resident in the above careand I was present with the resident for the entire procedure. ARSEN PAUL DO, MPH ABPMR-subspecialty board certification in Pain Medicine Attending Physician-Pain Management CC: MAKENNA Patel [facility] [place] [address] Arsen Allen DO NEUROLOGY ORDERABLES documented in this encounter Visit Diagnoses Diagnosis Lumbosacral spondylosis without myelopathy documented in this encounter Administered Medications Inactive Administered Medications - up to 3 most recent administrations Medication Order MAR Action Action Date Dose Rate Site Lidocaine (PF) (XYLOCAINE) 20 mg/mL (2 %) injection 30 mg 30 mg, Other, ONCE, 1 dose, On Tue11/21/13 at 1430, Routine Given 11/21/2013 2:30 PM EDT 30 mg documented in this encounter Care Teams Line Crewman Relationship Specialty Start Date End Date Bhumi Ventura APRN [address] [place] [address] PCP - General 08/23/13 11/13/14 documented as of this encounter
--- OUTSIDE RECORDS SUMMARY | 2024-02-03 01:33 | XMS_ITS | Encounter Summary ---
[place] [address] Care Team Providers Care Legal Support Analyst Name Role Phone Bhumi Ventura APRN Primary Care Provider [phone] Encounter Details Date Type Department Care Team (Late st Contact Info) Description 11/12/2013 Telephone [place] [id number] Laura Fishman LPN Social History Tobacco Use [...] Telephone Encounter - Laura Fishman LPN - 11/12/2013 9:40 AM EDT Pain Management Center Post-Procedure Phone Note Patient: Vanesa Marrero [id number] Post-procedure phone call from patient to report her response to the lumbar medial branch block procedure performed on 10/26/13 in the Pain Management Center by Ricky Banerjee DO. This is patient's : first medial branch block Patient reports that after the procedure she experienced: _x_ Patient reported post-block numeric pain scale: 1 /10 (average pain since procedure) _x_ Post-procedure pain has been reduced by 90%. (> 80% Medicare/MVP/Medicaid) _x_ If relief > 80% with ability to perform painful maneuvers; sched 2nd MBB: yes _x_ Total pain relief. If pain is reduced, it lasted: Yes 4 hours or greater Based on the information provided above and after discussion with the patient, the following actions will be taken: _x_ Patient meets criteria to proceed to second Bilateral lumbar medial branch block Patient on anticoagulant medication: No Patient has pacemaker/defibrillator: No Patient has the appropriate phone number and understands that she may contact the Pain Management Center at any time with questions or concerns. Laura Fishman LPN documented in this encounter [...] on filedocumented in this encounter Care Teams Legal Support Analyst Relationship Specialty Start Date End Date Bhumi Ventura APRN [address] [place] [address] PCP - General 08/23/13 11/13/14 documented as of this encounter
--- OUTSIDE RECORDS SUMMARY | 2024-02-03 01:33 | XMS_ITS | Encounter Summary ---
Author Organization [facility] [place] [address] Care Team Providers Care Precision Dyer Name Role Phone Lorenzo Bhumi LOPEZ Primary Care Provider [phone] Reason for Visit * Reason Comments Back Pain Encounter Details Date Type Department Care Team (Latest Contact Info) Description 10/26/2013 1:15 PM EDT Procedure [place] [address] [facility] [place] [address] Spondylosis of lumbar region without myelopathy or radiculopathy (Primary Dx); Lumbago Discharge Disposition: Home Social History Tobacco Use [...] Sign Reading Time Taken Comments Blood Pressure 136/70 10/26/2013 2:10 PM EDT Pulse 99 10/26/2013 2:10 PM EDT Temperature - - Respiratory Rate 18 10/26/2013 2:10 PM EDT Oxygen Saturation 100% 10/26/2013 2:10 PM EDT Inhaled Oxygen Concentration - - Weight 180.1 kg (397 lb) 10/26/2013 1:47 PM EDT Height 166.4 cm (5' 5.5) 10/26/2013 1:47 PM EDT Body Mass Index 65.06 10/26/2013 1:47 PM EDT documented in this encounter Patient Instructions * Patient Instructions* Sena Narayan LPN - 10/26/2013 1:53 PM EDT [facility] Discharge Instructions: You were seen by Dr. Ricky Banerjee DO who performed Peter. lumbar medial branch block. [x] You may resume your normal activities: today. You may shower today. DO NOT tub [...] your procedure. You received the following medications: Lidocaine and Sensorcaine. During regular business hours, please phone the [...] or proceed to your local emergency department. Sena Narayan LPN [facility] Post -Procedure Pain Log Patient: Vanesa Marrero [id number] It is important for you to keep track of your pain after your procedure that took place 10/26/2013. This information will help your Provider to determine how to help reduce your pain. Today you had a procedure for pain in your Back Your pain level before the procedure in this area was .4/10.Right 5/10 left Your pain level immediately after your procedure was3/10.Right 2/10 Left Time Pain Score Comments 1 hour 2 hours 3 hours 4 hours Please call the nurse in the Pain Management Center a day or two after your procedure and report the information above. She will assess your response to the procedure, and will recommend appropriate follow-up. Special instructions documented in this encounter Progress Notes * Ricky Banerjee DO - 10/26/2013 2:23 PM EDT PROCEDURE NOTE LUMBAR MEDIAL BRANCH DIAGNOSTIC BLOCKS Date of Service: 10/26/2013 Patient: Vanesa Marrero Referring Physician: Jose C Marroquin [facility] [place] [address] Diagnosis: 1. Spondylosis of lumbar region without myelopathy or radiculopathy 2. Lumbago Pre-procedure Note History and Exam: Patient demonstrates today moderate to severe non- radicular back pain without neurologic deficit aggravated by hyperextension Yes Back pain greater than leg pain Yes Patient today has tenderness over the suspected joint(s) Yes History of post-traumatic injury No Hypertrophic arthropathy Yes Back pain associated with suspected motion segment instability or Hypermobility or pseudoarthrosis No Pre-testing pain score (VAS): 5 Previous medial branch block testing?: No Lidocaine 2% Today's Operative Note Vanesa Marrero was greeted by the nurse who verified the patients name and . Patient was thentaken to the fluoroscopy suite. Ms. Marrero was interviewed and the medical record was reviewed. There were no medical contraindications to performing the bilateral lumbar medial branch nerve blocks. I first had a talk with the patient and discussed the potential risks, benefits, side effects, and alternatives of this procedure including but not limited to increased pain from the procedure, no pain relief, nerve damage, infection, and bleeding. She comprehended my conversation and accepts the risks and understands the goals of this diagnostic procedure. All questions and concerns from the patient were addressed. After I was comfortable that the patient was fully informed about this procedure, the printed consent form was signed. Standard time-out procedure was performed Ms. Marrero was placed in the prone position on the fluoroscopy table and automated blood pressure cuff and pulse oximeter were applied. The anatomic target points of the segmental medial branches of bilateral L3, L4, and L5DR were identified with fluoroscopy. Following thorough Chlorhexadine preparation of the skin and draping and 1% lidocaine infiltration of the skin entry points and subcutaneoustissues, a 22 gauge 7 spinal needle was placed under fluoroscopic guidance down on to the target point for each respective segmental medial branch.Position was confirmed in A/P, oblique and lateral views. At each level we injected 0.5ml of Bupivacaine 0.5%. Ms. Gonzalez vital signs were stable throughout the procedure and were as recorded in the docflowsheet by the nursing staff. Postoperatively, today patient demonstrates the following changes with hyperextension and with tenderness over the suspected joint(s). Provacative testing using the Gotti's facet loading test Right side Left side Directly before the block VAS (0-10) = 4 VAS (0-10) = 5 5 minutes after the block VAS (0-10) = 3 VAS (0-10) = 2 Percentage relief obtained with this diagnostic block 50% 50% Any improved physical functioning directly after the blocks? Better movement in flexion and extension Next, she was asked to record their percent pain relief and any changes in provocative maneuvers for the next 4 hours. They will report this information at the next business day to one of our nurses. Based on the medial branches blocked today, if the patient meets insurance criteria for radiofrequency, the treatment should result in the denervation of the bilateral L4/L5 and L5/S1. We would expect to denervate a total of 4 facets during the radiofrequency ablation. Discharge plan:: She will call with the results of her pain diary I personally performed the entire procedure. Ricky Banerjee DO, MPH [facility]subspecialty board certification in Pain Medicine Attending Physician - Pain Management CC: MAKENNA Patel [facility] [place] [address] * Sena Narayan LPN - 10/26/2013 1:47 PM EDT Pre-Procedure Screening Questions: 1. Status: No 2. 3. Patient states they have a lease purchase driver to transport after procedure? Yes 4. Patient taking antibiotics at present? No 5. NPO per Pain Management Center protocol? No 6. 7. Patient diabetic: No __ borderline (not treated with medications) __ managed with oral medications __ managed with injected medications 8. Patient routinely taking anticoagulants ? No Date stopped Current INR Patient Vital Signs documented in Doc Flowsheets associated with this encounter. Patient Discharge Instructions were reviewed with patient and copy provided to patient. documented in this encounter Plan of Treatment Pending Results Name Type Priority Associated Diagnoses Date /Time XR Fluoro OR c-arm storage only Imaging Routine 10/26/2013 3:31 PM EDT Scheduled Orders Name Type Priority Associated Diagnoses Orde r Schedule XR Fluoro OR c-arm storage only Imaging Routine Once PRN (for Ra diant use) for 1 Occurrences starting 10/26/2013 until 10/26/2013 Nerve Block - Lumbosacral Neurology Routine Spondylosis of lumbar region without myelopathy or radiculopathy Lumbago Ordered: 10/26/2013 Scheduled Procedures Name Priority Associated Diagnoses Date/Ti de COLONOSCOPY, DIAGNOSTIC (WRV U 3.26) + cologuard Procedure: Colonoscopy Indication: Positive Cologuard Sedation: MAC Rationale for MAC: MONSE with BiPap, severe obesity with BMI >40 Timeframe: within 3 months Specific provider: first available documented as of this encounter Visit Diagnoses Diagnosis Spondylosis of lumbar region without myelopathy or radiculopathy- Primary Lumbosacral spondylosis without myelopathy Lumbago documented in this encounter Administered Medications Inactive Administered Medications - up to 3 most recent administrations Medication Order MAR Action Action Date Dose Rate Site BUpivacaine (PF) (MARCAINE) 0.5 % (5 mg/mL) injection 50 mg 50 mg (10 mL), Subcutaneous, ONCE, 1 dose, On Tue10/26/13 at 1445, Wasted 20ml, Routine Given 10/26/2013 2:45 PM EDT 50 mg documented in this encounter Care Teams Precision Dyer Relationship Specialty Start Date End Date Bhumi Ventura APRN [address] [place] [address] PCP - General 08/23/13 11/13/14 documented as of this encounter
--- OUTSIDE RECORDS SUMMARY | 2024-02-03 01:33 | XMS_ITS | Encounter Summary ---
Author Organization [facility] [place] [address] Care Team Providers Care Workers Compensation Claims Examiner Name Role Phone Jose Akhtar MD Primary Care Provider + Encounter Details Date Type Department Care Team (Late st Contact Info) Description 05/02/2013 Orders [place] [address] Sebastien Kathleen MD [facility] DR [place] [address] Social History Tobacco Use Types Packs/Day Years Used Date Smoking Tobacco: Never Assessed Sex and Gender Information Value Date Recorded Sex Assigned at Not on file Gender Identity Not on file Sexual Orientation Not on file documented as of this encounter Plan of Treatment Pending Results Name Type Priority Associated Diagnoses Date /Time Film Library- Storage only DX Knee Imaging Routine 05/02/2013 8:49 AM EST Scheduled Procedures Name Priority Associated Diagnoses Date/Ti me COLONOSCOPY, DIAGNOSTIC (WRV U 3.26) + cologuard Procedure: Colonoscopy Indication: Positive Cologuard Sedation: MAC Rationale for MAC: MONSE with BiPap, severe obesity with BMI >40 Timeframe: within 3 months Specific provider: first available documented as of this encounter Visit Diagnoses Not on filedocumented in this encounter Care Teams Workers Compensation Claims Examiner Relationship Specialty Start Date End Date Jose Akhtar MD [address] [place] [address] PCP - General 05/19/10 08/22/13 documented as of this encounter
--- OUTSIDE RECORDS SUMMARY | 2024-02-03 01:33 | XMS_ITS | Encounter Summary ---
Author Organization [facility] [place] [address] Care Team Providers Care Motion Picture Set Grip Name Role Phone Jose Akhtar MD Primary Care Provider + Encounter Details Date Type Department Care Team (Late st Contact Info) Description 07/12/2013 Orders [place] [address] Sebastien Kathleen MD [facility] [place] [address] Social History Tobacco Use Types Packs/Day Years Used Date Smoking Tobacco: Never Assessed Sex and Gender Information Value Date Recorded Sex Assigned at Not on file Gender Identity Not on file Sexual Orientation Not on file documented as of this encounter Plan of Treatment Pending Results Name Type Priority Associated Diagnoses Date /Time Film Library- Storage only DX Knee Imaging Routine 07/12/2013 1:22 AM EST Scheduled Procedures Name Priority Associated Diagnoses Date/Ti me COLONOSCOPY, DIAGNOSTIC (WRV U 3.26) + cologuard Procedure: Colonoscopy Indication: Positive Cologuard Sedation: MAC Rationale for MAC: MONSE with BiPap, severe obesity with BMI >40 Timeframe: within 3 months Specific provider: first available documented as of this encounter Visit Diagnoses Not on filedocumented in this encounter Care Teams Motion Picture Set Grip Relationship Specialty Start Date End Date Jose Akhtar MD [address] [place] [address] PCP - General 05/19/10 08/22/13 documented as of this encounter
--- OUTSIDE RECORDS SUMMARY | 2024-02-03 01:33 | XMS_ITS | Encounter Summary ---
[place] [address] Care Team Providers Care Handle Attacher Name Role Phone Lorenzo Bhumi LOPEZ Primary Care Provider [phone] Encounter Details Date Type Department Care Team (Late st Contact Info) Description 02/21/2014 Telephone [place] [phone] Juana Jane RN Social History Tobacco Use [...] Encounter - Juana Jane RN - 02/21/2014 1:31 PM EDT Vanesa Marrero :1965 Message left: I left a message on answering machine Ms. Marrero at 1:31 PM regarding her upcoming Bilateral lumbar radiofrequency with Dr. Ricky Banerjee DO. Message included the followin. Patient instructed to arrive at 10:30 am (30 minutes prior to procedure start time) on 02/26/2014 with their driver's license reviewing officer. 2. Following instructions left in the message: - Bring Updated list of medications including dosage and reason for taking. - Call the Pain Clinic Nurse at or for: ~Procedure instructions. ~If you are taking [...] 3. If patient NPO: No food after 5:00 am (6 hours prior to procedure start time); clear fluids onlyup until 9:00 am (2 hours prior to procedure start time) Juana Jane RN documented in this encounter [...] on filedocumented in this encounter Care Teams Handle Attacher Relationship Specialty Start Date End Date Bhumi Ventura APRN [address] [place] [address] PCP - General 08/23/13 11/13/14 documented as of this encounter
--- OUTSIDE RECORDS SUMMARY | 2024-02-03 01:33 | XMS_ITS | Encounter Summary ---
[place] [address] Care Team Providers Care Performance Improvement Analyst Name Role Phone Bhumi Ventura APRN Primary Care Provider [phone] Encounter Details Date Type Department Care Team (Late st Contact Info) Description 11/22/2013 Telephone [place] [phone] Elise Mojica, RN Social History Tobacco Use Types Packs/Day [...] encounter Miscellaneous Notes * Telephone Encounter - Elise Mojica, RN - 11/22/2013 3:17 PM EDT Pain Management Center Post-Procedure Phone Note Patient: Vanesa Marrero [id number] Post-procedure phone call from patient to report her response to the lumbar medial branch block procedure performed on 11/21/2013 in the Pain Management Center by Ricky Banerjee DO. This is patient's : second medial branch block Patient reports that after the procedure she experienced: _x_ Patient reported post-block numeric pain scale: 0 /10 (average pain since procedure) _x_ Post-procedure pain has been reduced by (> 80% Medicare/MVP/Medicaid) _x_ Total pain relief. If pain is reduced, it lasted: s Yes 4 hours or greater Based on the information provided above and after discussion with the patient, the following actions will be taken: _x_ Patient meets criteria for radiofrequency treatment and would like to proceed with a lumbar Radiofrequency procedure with Ricky Banerjee DO. _x_ Patient will be contacted by special education secretary in Pain Management Center as described above. _x_ Patient was given general information about the procedure and all their questions were answeredto their satisfaction. . Patient on anticoagulant medication: No Patient has pacemaker/defibrillator: No Patient has the appropriate phone number and understands that she may contact the Pain Management Center at any time with questions or concerns. Elise Mojica RN documented in this encounter Plan of [...] on filedocumented in this encounter Care Teams Performance Improvement Analyst Relationship Specialty Start Date End Date Bhumi Ventura APRN [address] [place] [address] PCP - General 08/23/13 11/13/14 documented as of this encounter
--- OUTSIDE RECORDS SUMMARY | 2024-02-03 01:33 | XMS_ITS | Encounter Summary ---
Author Organization [facility]ly [facility] [place] [address] Care Team Providers Care Center Manager Name Role Phone Lorenzo Bhumi LOPEZ Primary Care Provider [phone] Reason for Visit * Reason Comments Back Pain Encounter Details Date Type Department Care Team (Latest Contact Info) Description 02/26/2014 10:30 AM EDT Procedure [place] [address] [facility] [place] [address] Lumbosacral spondylosis without myelopathy Discharge Disposition: Home [...] Sign Reading Time Taken Comments Blood Pressure 122/57 02/26/2014 12:38 PM EDT Pulse 82 02/26/2014 12:38 PM EDT Temperature - - Respiratory Rate 16 02/26/2014 12:38 PM EDT Oxygen Saturation 92% 02/26/2014 12:38 PM EDT Inhaled Oxygen Concentration - - Weight 186.9 kg (412 lb) 02/26/2014 11:38 AM EDT Height 166.4 cm (5' 5.5) 02/26/2014 11:38 AM ED T Body Mass Index 67.52 02/26/2014 11:38 AM EDT documented in this encounter Patient Instructions * Patient Instructions* Dani Lucia Sky, RN - 02/26/2014 12:03 PM EDT Pain Management Center Discharge Instructions: You were seen by Dr. Arsen Paul DO who performed bilateral lumbar radiofrequency. [x] You may resume your normal activities: [...] 20 minutes. Do not apply heat today. [x] You received Fentanyl Citrate 25 mcg and Phenergan 12.5mg through an intravenous line, to lessen the anxiety/pain of your procedure. DO NOT operate heavy or dangerous equipment/tools, or sign important papers today. Attempt to empty your bladder 4-6 hours after your procedure. [x] If you have diabetes, monitor your blood sugars frequently. If your blood sugar increases and is of concern, contact your Primary Care Provider. You received the following medications: Lidocaine. During [...] or proceed to your local emergency department. Lucia Louise RN Special instructions documented in this encounter Progress Notes * Lucia Louise RN - 02/26/2014 11:39 AM EDT Pre-Procedure Screening Questions: 1. Status: No 2. Patient states they have a truck driver's offsider to transport after procedure? Yes 3. Patient [...] Yes IV placement: Location of IV Insertion: [x ] Right [ ] Left [ ] hand [ ] anterior forearm [ ] posterior forearm [x ] AC [ ] upper arm [ ] other: IV Gauge: [ ] 24G [ x ] 22G [ ] 20G After IV insertion completed, IV was secured with occlusive transparent dressing. IV site is patentand intact. Patient is without complaint upon completion of IV insertion. Started by: MMY Initiated by: Lucia Louise RN IV Solution: LR 1000ml - rate as directed by proceduralist Total Volume Intravenous Fluid infused documented in the Medication Administration Record (MAR) Site condition at IV removal: [c ] Clear [ ] Bruised [ ] other: Administration of IV anxiolysis procedural medications documented in MAR as ordered by proceduralist documented in this encounter Procedure Notes * Arsen Paul DO - 03/01/2014 6:45 AM EDTAssociated Order(s): RADIOFREQUENCY-LUMBAR/SACRAL Procedure(s): RADIOFREQUENCY-LUMBAR/SACRAL Pre-Procedure Diagnose(s): Lumbosacral spondylosis without myelopathy LUMBAR/SACRAL MEDIAL BRANCH RADIOFREQUENCY Date of Service: 02/26/2014 Patient: Vanesa Marrero Provider: ARSEN PAUL DO Vanesa Marrero has been referred to [...] duration of the local anesthetic effect. COMMENTS: She is 5'5 and 412 pounds. We special ordered the 20 cm RFA probes and they were used today. Ms. Marrero was interviewed and the medical [...] skin entry points and subcutaneous tissues, a single 20 cm 20 guage curved needle with a 10mm active tip radiofrequency cannula was placed under fluoroscopic guidance along or across the anatomic course of each respective segmental medial branch. Each placement was stimulated at 2Hz without any evidence of distal myotomal stimulation. At each placement a continuous mode radiofrequency treatment was done at 80 degrees C for 90 secs and then rotated 180degrees and then repeated. This radiofrequency treatment should result in the denervation of the bilateral L4-L5 and L5-S1. A total of 4 facets were expected to be denervated from today's treatment. Ms. Howells vital signs were stable throughout the procedure and were as recorded in the docflowsheet by the nursing staff. If given, dosages of intravenous drugs for anxiolysis and analgesia were documented in the Medication Administration Record (MAR). Follow up plans and appointments were discussed with Vanesa Marrero. Post procedure instruction was given as documented in the nursing documentation and having met discharge criteria, she was discharged from the Pain Management Center. COMMENTS: She will call us with any problems. I personally performed the entire procedure. Arsen Paul DO, MPH [employer]-subspecialty board certification in Pain Medicine Attending Physician-Pain Management CC: Bhumi Lorenzo, ANESTHETIST [address] [place] [address] documented in this encounter Plan of Treatment Pending Results Name Type Priority Associated Diagnoses Date /Time XR Fluoro OR c-arm storage only Imaging Routine 02/26/2014 2:02 PM EDT Scheduled Orders Name Type Priority Associated Diagnoses Orde r Schedule XR Fluoro OR c-arm storage only Imaging Routine Once PRN (for Ra diant use) for 1 Occurrences starting 02/26/2014 until 02/26/2014 Scheduled Procedures Name Priority Associated Diagnoses Date/Ti me COLONOSCOPY, DIAGNOSTIC (WRV U 3.26) + cologuard Procedure: Colonoscopy Indication: Positive Cologuard Sedation: MAC Rationale for MAC: MONSE with BiPap, severe obesity with BMI >40 Timeframe: within 3 months Specific provider: first available documented as of this encounter Procedures Procedure Name Priority Date/Time Associated Diagnosis Comments RADIOFREQUENCY-LUMB AR/SACRAL Routine 03/01/2014 6:49 AM EDT Lumbosacral spondylosis without myelopathy documented in this encounter Results * RADIOFREQUENCY-LUMBAR/SACRAL (03/01/2014 6:49 AM EDT) Narrative Arsen Paul DO - 03/01/2014 6:49 AM EDT Arsen Paul DO ? 03/01/2014 ??6:49 AM LUMBAR/SACRAL MEDIAL BRANCH RADIOFREQUENCY Date of Service: ??02/26/2014 Patient: ??Vanesa Marrero ?? Provider: ??ARSEN PAUL DO Vanesa Marrero has been referred to [...] of the local anesthetic effect. ?? COMMENTS: She is 5'5 and 412 pounds. ??We special ordered the 20 cm RFA probes and they were used today. Ms. Marrero was interviewed and the medical [...] skin entry points and subcutaneous tissues, a single 20 cm 20 guage curved needle with a 10mm active tip radiofrequency cannula was placed under fluoroscopic guidance along or across the anatomic course of each respective segmental medial branch. ??Each placement was stimulated at 2Hz ??without any evidence of distal myotomal stimulation. ??At each placement a continuous mode radiofrequency treatment was done at 80 degrees C for 90 secs and then rotated 180degrees and then repeated. This radiofrequency treatment should result in the denervation of the bilateral L4-L5 and L5-S1. ??A total of 4 facets were expected to be denervated from today's treatment. Ms. Howells vital signs were stable throughout [...] discharged from the Pain Management Center. COMMENTS: She will call us with any problems. I personally performed the entire procedure. Arsen Paul DO, MPH [employer]-subspecialty board certification in Pain Medicine Attending Physician-Pain Management CC: Bhumi Ventura, ANESTHETIST [address] [place] [address] Procedure Note Arsen Paul DO - 03/01/2014 6:45 AM EDT LUMBAR/SACRAL MEDIAL BRANCH RADIOFREQUENCY Date of Service: 02/26/2014 Patient: Vanesa Marrero Provider: ARSEN PAUL DO Vanesa Marrero has been referred to [...] the duration of the local anestheticeffect. COMMENTS: She is 5'5 and 412 pounds. We special ordered the 20 cm RFAprobes and they were used today. Ms. Marrero was interviewed and the medical [...] the skin entry points andsubcutaneous tissues, a single 20 cm 20 guage curved needle with a 10mmactive tip radiofrequency cannula was placed under fluoroscopic guidancealong or across the anatomic course of each respective segmental medialbranch. Each placement was stimulated at 2Hz without any evidence ofdistal myotomal stimulation. At each placement a continuous moderadiofrequency treatment was done at 80 degrees C for 90 secs and thenrotated 180degrees and then repeated. This radiofrequency treatment should result in the denervation of thebilateral L4-L5 and L5-S1. A total of 4 facets were expected to bedenervated from today's treatment. Ms. Howells vital signs were stable throughout [...] was discharged fromthe Pain Management Center. COMMENTS: She will call us with any problems. I personally performed the entire procedure. Arsen Paul DO, MPH ABPMR-subspecialty board certification in Pain Medicine Attending Physician-Pain Management CC: Bhumi Ventura APRN [address] [place] [address] Arsen Allen DO PROCEDURE/MINOR SURG ICAL ORDERABLES documented in this encounter Visit Diagnoses Diagnosis Lumbosacral spondylosis without myelopathy documented in this encounter Administered Medications Inactive Administered Medications - up to 3 most recent administrations Medication Order MAR Action Action Date Dose Rate Site fentaNYL 50mcg/mL injection 50 mcg, Intravenous, ONCE, 1 dose, On Tue03/01/14 at 0700, Routine Given 02/26/2014 12:00 PM EDT 50 mcg lactated ringers infusion 100 mL 100 mL, Intravenous, ONCE, 1 dose, On Tue03/01/14 at 0700 New Bag 02/26/2014 12:00 PM EDT 100 mLs lidocaine (PF) (XYLOCAINE) 10 mg/mL (1 %) injection 100 mg 100 mg, Subcutaneous, ONCE, 1 dose, On Tue03/01/14 at 0700, Wasted 20ml, Routine Given 02/26/2014 12:00 PM EDT 100 mg documented in this encounter Care Teams Center Manager Relationship Specialty Start Date End Date Bhumi Ventura APRN [address] [place] [address] PCP - General 08/23/13 11/13/14 documented as of this encounter
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
--- OUTSIDE RECORDS SUMMARY | 2024-02-03 01:33 | XMS_ITS | Encounter Summary ---
[facility] Organization [facility] [place] [address] Care Team Providers Care Dispensing Operator Name Role Phone LorenzoBhumi JOHN Primary Care Provider Reason for Visit * Reason Comments Low Back Pain Encounter Details Date Type Department Care Team (Late st Contact Info) Description 10/03/2013 8:00 AM EDT Office [place] [phone] Jahaira Hernandez, PT [facility] Sebastien Kathleen MD [facility] [place] [address] Mechanical low back pain (Primary Dx) Discharge [...] Progress Notes * Jahaira Hernandez, PT - 10/03/2013 2:34 PM EDT PHYSICAL THERAPY INITIAL EXAMINATION Date of First Exam/ First Treatment: 10/03/2013 Date of Onset: 25 years ago with worsening pain over the past 2-3 years Referring Provider: Jose C Marroquin Diagnosis: 1. Mechanical low back pain 2. Facet joint arthropathy Work Status: Disabled Medicare Certification Period: 10/03/2013- 01/02/2014 Vanesa Marrero was [facility] therapy consult at the request ofJose C MENSAH. She was seen with the expectation to see if there is anything that can be done from an exercise perspective to ease the pain and improve her ability to function. History of Present Illness: Ms. Marrero reports she originally injured her low back while lifting something heavy during her 25 years ago. The pain waxed and waned over time but seems to havesteadily worsened over the past 2-3 years. Past treatments have included physical therapy, [id number] medications, heat, and liniments. Unfortunately, none of these treatments have provided herwith lasting pain relief. Ms. Marrero currently complains of low back pain which is equally distributed across the back. The pain is rated 2/10 at its least and 8/10 at its worst. She denies lower extremity numbness, tingling, or weakness. Symptoms worsen when standing, walking, and turning. Symptomsease when sitting, bending, or lying down. Sleep is significantly disturbed due to her painful knees and low back. When asked about her gait or balance disturbance she reports hobbling and walking with a forward lean. Functionally, she is able to walk 5 minutes and stand 5 minutes at a time only.She notes that leaning onto a shopping cart while walking allows her to walk 10-15 minutes. Ms. Marrero's functional self care goal includes stand and walk without difficulty. Patient Active Problem List Diagnosis Code ??? Bilateral knee pain 719.46 ??? Depression 311 ??? Thyroid disease 246.9 ??? Sleep apnea 780.57 ??? Morbid obesity 278.01 ??? Mechanical low back pain 724.2 : Past Medical History Diagnosis Date ??? Musculoskeletal disease 2010 arthritis in knees and neck ??? Breathing problem 2000 sleep apnea-treated with bipap ??? 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 Elevated cholesterol 2006 high triglycerides ??? Chronic pain 2005 myopathy ??? Genital disease, female 1990 hysterectomy -excessive bleeding ??? 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 Unlisted evaluation service 1991 subtotal thyroidectomy -radiation ??? Throat surgery procedure unlisted 2013 tongue surgery ??? Genital surg proc, female unlisted 1990 subtotal hysterectomy ??? Cranio/maxillofacial surg unlisted unknown wisdom teeth extraction : Social History: Ms. Marrero is a disabled woman who lives in [place], [place], with friends. She smokes 0.5 packs of cigarettes per day, drinks alcohol rarely, and is not involved in a structuredexercise program. Physical Exam: Ms. Marrero is a pleasant 48 y.o. female who arrives to the spine center in a wheelchair, but was able to walk from the waiting area to the exam room. She moves about in the exam room with slow and guarded movements and appears comfortable while seated. Sitting posture is poor and she tends to stand with the spine in flexion and her hips and knees flexed 20-30??. Examination of the low back in the standing position reveals a reduced lumbar lordosis and there is not a lateral shift of the lumbar spine on the pelvis. Active range of motion of the lumbar spine is limited to 50?? flexion and 0?? extension. Endrange extension and extension combined with right and left sidebending all reproduces the low back pain. She requires the use of her upper extremities when rising from a seated position and when returning to sitting from standing due to poor lower extremity eccentric strength. She walks with a significant forward lean. With support she is able to take a few steps on heels/toes and squat through 1/3 of the range. Squatting is limited due to worsening low back and knee pain. Abdominal and trunk extensor strength is 2/5. Slouched sitting lessens the pain while sitting fully erect worsens it. Repeated movement testing of the lumbar spine revealed a directional preference toward flexion. Physical Therapy Assessment: Ms. Marrero is a woman with a long history of gradually worsening low back pain which is interfering with her ability to function. The physical exam today is significant for marked loss of lumbar range of motion, trunk and lower extremity musculature weakness, altered gait pattern, and a directional preference toward flexion with movement testing. The history and exam is consistent with chronic low back pain likely related to underlying facet joint arthropathy. I believe that these deficits can improve with physical therapy treatments directed to the low back consisting of instruction in mechanical self-care, strengthening, conditioning, and self mobilization exerc ises. Ms. Marrero has a good rehabilitation potential and I anticipate to meet with her for 4-5 additional visits over the next 8-10 weeks. Treatment Plan: The natural history of low back pain in the context of facet joint arthropathy and rational for exercise based treatment was reviewed. Ms. Marrero was given a home exercise program consisting of pelvic tilt, bridging, prone straight leg raise, active extension in prone and quad sets in the morning and once again at bedtime. She was strongly encouraged to begin a structured cardiovascular exercise program such as stationary cycling or walking. I also reviewed flexion based self-care strategies such as using trekking poles or a wheeled walker when walking, placing the foot on a step, leaning against a wall, perching, flexion in sitting, or flexion in standing as needed throughout the day to relieve the pain.. Along with the prescribed exercises, we discussed the principles of symptom self monitoring and posture correction. She will call with any questions, concerns, or if the pain worsens. Ms. Marrero will [facility] for a follow up appointment in 2 weeks time with the hope that she is ready to progress her home exercise program. Physical Therapy Goals in 4 weeks: 1. Independent with home exercise program 2. Able to stand without discomfort 3. Able to walk without discomfort G-Code: Mobility Status Modifier CURRENT CJ - At least 20 percent but less than 40 percent impaired, limited or restricted PROJECTED CH - 0 percent impaired, limited or restricted DISCHARGE Not Discharged Yet - Ongoing G Code Rationale: This G-Code and these disability modifiers were selected as the primary therapy goal based upon the patient's evaluation including the following functional test(s) No Functional Measure Used. Current ability measures, co-morbidities and clinical judgement were also used to select the disability modifier. Ms. Marrero's current G-Code functional level is 39% impaired based upon her difficulty to stand and walk. Medicare Therapy G-Code Date Tracking: (Update G-Code status every 10 visits or when code changes) 1 2 3 4 5 6 7 8 9 10 10/03 The plan has been discussed with the patient and Vanesa Marrero has agreed with the planned treatment. 50 minutes were spent interviewing, assessing, and instructing Vanesa F Janes in a home exerciseprogram. documented in this encounter Miscellaneous Notes * Miscellaneous - Provider, Douglas - 11/29/2013 10:16 AM EDT documented in this encounter Plan of Treatment [...] Lumbago documented in this encounter Care Teams Dispensing Operator Relationship Specialty Start Date End Date Bhumi [place]ura APRN [address] [place] [address] PCP - General 08/23/13 11/13/14 documented as of this encounter
--- OUTSIDE RECORDS SUMMARY | 2024-02-03 01:33 | XMS_ITS | Encounter Summary ---
[place] [address] Care Team Providers Care Burner Operator Name Role Phone Lorenzo Bhumi LOPEZ Primary Care Provider [phone] Encounter Details Date Type Department Care Team (Late st Contact Info) Description 10/12/2013 [place] [phone] Sena Castellano, RN Social History Tobacco Use [...] Telephone Encounter - Sena Castellano, RN - 10/12/2013 1:23 PM EDT Vanesa Marrero :1965 Message left: I left a message with roommate of Ms. Marrero at 1:23 PM regarding her upcoming appointment at [facility]. Message included the followin. Patient instructed to arrive at 0915 (30 minutes prior to procedure start time) on 10/19/13 (dateof procedure) with their putaway driver. 2. Following instructions left in the [...] on filedocumented in this encounter Care Teams Burner Operator Relationship Specialty Start Date End Date Bhumi [place]ura APRN [address] [place] [address] PCP - General 08/23/13 11/13/14 documented as of this encounter
--- OUTSIDE RECORDS SUMMARY | 2024-02-03 01:33 | XMS_ITS | Encounter Summary ---
Author [place] [address] Care Team Providers Care Feed Handler Name Role Phone Bhumi [place]ura APRN Primary Care Provider [phone] Reason for Referral * Consultation (Routine) - Closed Specialty Diagnoses / Procedures Referred By Contramón t Referred To Contact Pain Management Diagnoses Mechanical low back pain Jose C Marroquin PA [facility] [place] [address] [facility] [address] [place] [address] Referral ID Status Reason Start Date Expiration Date V isits Requested Visits Authorized [id number] Closed Consult, Test & Treat 10/03/2013 04/01/2014 3 3 Reason for Visit * Reason Comments Low Back Pain Encounter Details Date Type Department Care Team (Late st Contact Info) Description 10/03/2013 9:20 AM EDT [place] [phone] Jose C Marroquin PA [facility] [place] [address] Mechanical low back pain (Primary Dx) Discharge [...] Notes * Jose C Marroquin PA - 10/03/2013 9:29 AM EDT SUBJECTIVE: Ms. Marrero is a 48-year-old female that presents to the spine center for followup visit on chronic low back pain symptoms. Again, in previous history she first developed back pain symptoms about 25 years ago and initially the symptoms started off as periodic but has been more constant as she has had weight gain issues. When I last saw the patient, I recommended physical therapy in the spine center and as I did not have x-rays of her lumbar spine I had her make sure the x-rays were loaded. She is following up today to review the x-rays and the response to physical therapy. Based on the physical therapist notes, it appears that she responds more to a flexion-based program than to extension. She is going to follow up with the physical therapist at a later date. She does rate the pain today as about a 4/10. Review of systems is negative for any GI, , or constitutional symptoms. MEDICATIONS: Reviewed [...] pain 2005 myopathy ??? Genital disease, female 1991 hysterectomy -excessive bleeding ??? Hormone disorder 1990 [...] ??? No narrative on file OBJECTIVE: This was a discussion-based visit and I did not repeat a physical exam on the patient. She is an obese 48-year-old female who is alert and oriented x3. IMAGING: She does have x-rays of the lumbar spine which does reveal that she has some spondylitic changes which are mostly located in the upper lumbar spine around L2-L3 and L3-L4. She does have some mild facet hypertrophy also noted. There is no spondylolisthesis that I can see. There are no compression fractures or compression deformities seen. The images were reviewed with the patient. ASSESSMENT: Chronic low back pain symptoms in the setting of lumbar spondylosis and degenerative changes. PLAN: I had a long discussion with the patient about the nature of her symptoms. Based on the response to physical therapy where she seems to respond more to a flexion-based program, this could suggest that the medial branch block/radiofrequency ablation which we previously discussed may help her significantly with her pain. I gave her the option to continue physical therapy as she has been working with or just going towards the injection. At this time after educating the patient, she feels she would like to proceed with the injection. I gave a thorough education about the injection and the potential of whether it will improve or not. After our discussion and answering her questions, the plan is as follows: 1. She will continue with her current physical therapy program as prescribed. 2. I have referred the patient to the pain center for bilateral lumbar medial branch block/radiofrequency ablation and she will follow up in the spine center about three to four weeks after radiofrequency ablation if it is performed. She is aware that she will likely not follow up with me based on the timing of this injection. Approximately 15 minutes of this 20-minute visit was spent in reviewing her imaging, medical decision making, and planning. documented in this encounter Plan of Treatment Scheduled Procedures Name Priority Associated Diagnoses Date/Ti me COLONOSCOPY, DIAGNOSTIC (WRV U 3.26) + cologuard Procedure: Colonoscopy Indication: Positive Cologuard Sedation: MAC Rationale for MAC: MONSE with BiPap, severe obesity with BMI >40 Timeframe: within 3 months Specific provider: first available Scheduled Referrals Name Type Priority Associated Diagnoses Orde r Schedule Referral to Pain Clinic Outpatient Referral Routine Mechanical low back pain Ordered: 10/03/2013 documented as of this encounter Visit Diagnoses Diagnosis Mechanical low back pain- Primary Lumbago documented in this encounter Care Teams Feed Handler Relationship Specialty Start Date End Date Bhumi Ventura APRN [address] [place] [address] PCP - General 08/23/13 11/13/14 documented as of this encounter
--- OUTSIDE RECORDS SUMMARY | 2024-02-03 01:33 | XMS_ITS | Encounter Summary ---
Author Organization [facility] [place] [address] Care Team Providers Care Operator Command Support Systems Name Role Phone Roula Bauman APRN Primary Care Provider [phone] Encounter Details Date Type Department Care Team (Late st Contact Info) Description 2019 Ancillary Procedure [place] [phone] Juan Manuel Eldridge MD [facility] [place] [address] Social History Tobacco Use Types Packs/Day Years [...] Associated Diagnosis Comments FILM LIBRARY STORAGE ONLY ULTRASOUND STUDY Routine 2019 12:00 AM EDT documented in this encounter Results * Film Library- Storage Only Ultrasound Study (2019 12:00 AM EDT) Narrative [facility] - 12/21/2021 1:25 PM EDT This exam is auto-finalizing. It's purpose is for storage only. Juan Manuel Eldridge MD IMG FILM LIBRARY ORD ERABLES Performing Organization Address City/State/[facility] Co de Phone Number [place], [place] documented in this encounter Visit Diagnoses Not on filedocumented in this encounter Care Teams Operator Command Support Systems Relationship Specialty Start Date End Date Roula Bauman, JOHN [address] [place] [address] PCP - General 11/14/14 documented as of this encounter
[2024-02-03 14:16] LABS: TSH 5.76 uIU/Ml (0.36-3.74)
== END 2024-02-03 01:20 | disposition home or self-care (01) ==
LOC: LBO 01:19
PROVIDERS: PCP Physician Assistant; Visit Provider Internal Medicine Endocrinology, Diabetes & Metabolism
DX: E89.0 Postprocedural hypothyroidism (principal)
CPT/HCPCS: 36415; 84443

== ENCOUNTER 2024-04-20 00:18 | Outpatient (CLI) | payer OTHER, MEDICAID, SELFPAY ==
--- OUTSIDE RECORDS SUMMARY | 2024-04-20 00:21 | XMS_ITS | Encounter Summary ---
Author Organization [facility] Address [address] [place] [address] Care Team Providers Care Helpdesk Administrator Name Role Phone MonicaLynne stark JAVID Primary Care Provider [phone] Mariaelena Garces CARBONATION EQUIPMENT TENDER Unavailable [phone] Kyaw Ahn RPA Primary Care Provider [phone] Reason for Visit * Reason Onset Date Comments Medications Refill 05/26/2023 Encounter Details Date Type Department Care Team (Late st Contact Info) Description 05/26/2023 Refill [facility] [place] [address] [place] [address] Samantha Mcguire, MORRIS [address] [place] [address] Medications Refill Social History Tobacco Use Types [...] Care Team (Late st Contact Info) Description 08/07/2024 10:45 EST Telemedicine [facility] Endocrinology [address] [place] [address] Ricky Wei MD [address] [facility] [address] [place] [phone] documented as of this encounter Visit Diagnoses Not on filedocumented in this encounter Discontinued Medications Medication Sig Discontinue Reason Start Date End Da te levothyroxine (SYNTHROID) 200 mcg tablet Take 1 Tablet by mouth daily. Branded name necessary Reorder 05/19/2022 05/26/2023 documented as of this encounter Care Teams Helpdesk Administrator Relationship Specialty Start Date End Date Lynne Ramírez FNP [address] [place] [id number] PCP - General 03/12/19 09/04/23 Kyaw Ahn RPA [address] [phone] PCP - General Family Medicine - Primary Care 09/05/23 Mariaelena Garces NP [address] [place] [phone] Nurse Practitioner Endocrinology, Diabetes and Metabolism 07/20/21 documented as of this encounter
--- OUTSIDE RECORDS SUMMARY | 2024-04-20 00:21 | XMS_ITS | Encounter Summary ---
Author Organization [facility] Address [address] [place] [address] Care Team Providers Care Undergraduate Internship Name Role Phone Lynne Ramírez JAVID Primary Care Provider [phone] Mariaelena Garces JIGGER CROWN POUNCING MACHINE OPERATOR Unavailable [phone] Reason for Visit * Reason Comments Hypothyroidism Refill, medication m onitoring Encounter Details Date Type Department Care Team (Latest Contact Info) Description 05/19/2022 8:[address] [facility] Endocrinology [address] [place] [address] Brenna Darnell MD [address] [facility] [address] [place] [address] Postprocedural hypothyroidism (Primary Dx); Medication [...] Brenna Pope MD - 05/19/2022 0830 EST [facility] Video Visit Today's visit was provided through [...] Contact Info) Description 08/07/2024 10:[address] [facility] Endocrinology [address] [place], [place] [phone] Ricky Wei MD [address] [facility] [address] [place] [address] documented as of this encounter Visit Diagnoses [...] mouth. added in this encounter Care Teams Undergraduate Internship Relationship Specialty Start Date End Date Lynne Ramírez FNP [facility] [place] [address] PCP - General 03/12/19 09/04/23 Mariaelena Garces NP [address] [place] [phone] Nurse Practitioner Endocrinology, Diabetes and Metabolism 07/20/21 documented as of this encounter
--- OUTSIDE RECORDS SUMMARY | 2024-04-20 00:21 | XMS_ITS | Continuity of Care Document ---
Author Organization [facility] [place] [address] [place] [address] Assessment No assessment recorded. Plan of Treatment Reminders Order Date Submit Date Provider Last Modified By Organization Details Last Modified Time Details Appointments Nurse Visit 20 2023 01:20P M [facility] Nursing Staff Not available Not available Not available Annual Wellness Exam 40 2024 10:30A M KYAW LOPEZ Not available Not available Not available Lab None recorded . Referral None recorded . Procedures None recorded . Surgeries None recorded . Imaging MAMMO, screenin g, bilatera l 2023 024 [email or web address], [place], [address], 03/02/2024 14:27:50 Medication Orders None recorded . Patient TargetsNo targets recorded. Patient Instructions Encounter Date Encounter Id Patient Instructions Last Modified By Organization Details Last Modified Time 03/02/2024 [id number] Vanesa Hess we will schedule a low dose ct scan for lung cancer screening, and screening mammogram lorraine Not available 03/02/2024 12:06:02 Reason for Referral Physical Therapist Referral for [...] Physician: Family Cintia Menjivar, Encounter Date: 11/11/2023 Psychiatrist Referral for Ge neralized anxiety disorder currently following with [facility] in [place]. Would like to switch. Generalized anxiety Referring Physician: Family Cintia Menjivar, Encounter Date: 04/18/2024 Results Created Date Observation Date Name Description Value Unit Range Abnormal Flag Note LastModifiedBy Organization Detail LastModifiedTime 03/11/20 24 10/01/2021 imagi ng/di agnos tic resul t No observ ation record ed. Not Available 03/11 22:43:09 03/11/20 24 11/24/2021 imagi ng/di agnos tic resul t No observ ation record ed. Not Available 03/11 22:43:11 03/11/20 24 01/25/2019 US, renal No observ ation record ed. Not Available 03/11 22:43:13 03/11/20 24 04/08/2021 XR, ankle No observ ation record ed. Not Available 03/11 22:43:14 03/11/20 24 2019 imagi ng/di agnos tic resul t No observ ation record ed. Not Available 03/11 22:43:16 03/11/20 24 02/15/2019 imagi ng/di agnos tic resul t No observ ation record ed. Not Available 03/11 22:43:18 03/11/20 24 05/15/2019 imagi ng/di agnos tic resul t No observ ation record ed. Not Available 03/11 22:43:50 03/11/20 24 10/01/2021 imagi ng/di agnos tic resul t No observ ation record ed. Not Available 03/11 22:43:51 03/11/20 24 04/23/2022 MAMMO , joaquime djeon No observ ation record ed. Not Available 03/11 22:43:55 03/11/20 24 03/08/2019 MAMMO laura dejon No observ ation record ed. Not Available 03/11 22:43:57 03/11/20 24 01/18/2019 MRI, lumba r spine No observ ation record ed. Not Available 03/11 22:43:58 03/11/20 24 11/12/2022 imagi ng/di agnos tic resul t No observ ation record ed. Not Available 03/11 22:44:43 03/11/20 24 12/21/2021 imagi ng/di agnos tic resul t No observ ation record ed. Not Available 03/11 22:44:59 03/11/20 24 05/13/2019 imagi ng/di agnos tic resul t No observ ation record ed. Not Available 03/11 22:45:17 03/11/20 24 04/05/2023 imagi ng/di agnos tic resul t No observ ation record ed. Not Available 03/11 22:45:27 03/11/20 24 09/30/2021 imagi ng/di agnos tic resul t No observ ation record ed. Not Available 03/11 22:45:30 03/11/20 24 09/30/2021 imagi ng/di agnos tic resul t No observ ation record ed. Not Available 03/11 22:45:31 03/11/20 24 01/14/2022 imagi ng/di agnos tic resul t No observ ation record ed. Not Available 03/11 22:45:35 03/11/20 24 12/21/2021 imagi ng/di agnos tic resul t No observ ation record ed. Not Available 03/11 22:45:46 03/11/20 24 12/21/2021 imagi ng/di agnos tic resul t No observ ation record ed. Not Available 03/11 22:45:47 03/11/20 24 11/24/2021 imagi ng/di agnos tic resul t No observ ation record ed. Not Available 03/11 22:45:50 Result Notes None recorded. Problems Name Problem SNOMED Code Status Onset Date Resolution Date Notes Provider Name and Address Organization Details Recorded Time Lumbosac ral spondylo sis without myelopat hy 69517010 Active 2017 Miltilev el degenera tive changes on 2019 Open MRI without spinal stenosis . Good response to RFA 2017 and 2018. Problem Code: M47.817; Problem Code Type: ICD-10; KYAW LOPEZ PA-C [address], [place], [address] , [facility] 4 12:15:39 Mixed hyperlip idemia 755902000 Active 201703/28/20 20 - Comments only - Lynne Ramírez TRAFFIC ADMINISTRATOR - Elevated TGs, low HDL, acceptab le LDL. Encourag ed addition of healthy fats, reductio n in carbs and sugars, increase in fiber intake. Will recheck in 6 months. Problem Code: E78.2; Problem Code Type: ICD-10; Not Available [facility] 3 04:17:37 Prurigo nodulari s 60867519 Active 201703/05/20 19 - Comments only - Lynne aRmírez APRN - Use clobetas ol cream BID PRN. Problem Code: L28.1; Problem Code Type: ICD-10; Not Available [facility] 3 04:17:37 Generali zed anxiety disorder 36556140 Active 201712/02/19 19 - Comments only - Lynne Ramírez APRN - See above. Problem Code: F41.1; Problem Code Type: ICD-10; Not Available [facility] 3 04:17:37 Major depressi on, single episode 46626632 Active 201705/12/20 22 - Comments only - Lynne Ramírez APRN - Mood improved , enjoying new grandson s. Continue s with regular therapy. Problem Code: F32.9; Problem Code Type: ICD-10; Not Available [facility] 3 04:17:37 Obstruct ming sleep apnea syndrome 93533623 Active 201711/04/19 22 - Comments only - Lynne Ramírez APRN - Sleep improved with new mask. Problem Code: G47.33; Problem Code Type: ICD-10; Not Available [facility] 3 04:17:38 Hypothyr oidism 72726003 Active 201711/04/19 23 - Comments only - Kyaw Lopez RPA - TSH drawn today. Follows with endocrin ology. Status post radioact ming iodine treatmen t for thyroid cancer. In her 20s. Problem Code: E03.9; Problem Code Type: ICD-10; Not Available [facility] 3 04:17:38 Body mass index 40+ - severely obese 984599020 Active 201709/29/19 22 - Comments only - Lynne Ramírez APRN - Challeng ing situatio n. Extreme obesity contribu ting to chronic back and joint pain, impairin g mobility . Pt describe s low-carb diet, encourag ed to continue , as well as limit portions . Unable to exercise d/t chronic pain. Problem Code: Z68.44; Problem Code Type: ICD-10; Not Available [facility] 3 04:17:38 Idiopath ic osteoart hritis 310987249 Active 201712/28/19 18 - Comments only - Lynne Ramírez APRN - Pool therapy twice weekly, ambulati on limited. Working towards lowering wt enough to have knee replacem ents. Problem Code: M17.0; Problem Code Type: ICD-10; Not Available [facility] 3 04:17:38 History of malignan t neoplasm of thyroid 320533772 Active 201709/29/19 22 - Comments only - Lynne Ramírez APRN - Followed by [facility] [place] [place] endo. Thyroid panel ordered. Problem Code: Z85.850; Problem Code Type: ICD-10; Not Available [facility] 3 04:17:38 Adult health examinat ion Active 201705/12/20 22 - Comments only - Lynne Ramírez APRN - Flu and covid vaccines given today, UTD with all other immuniza tions. Declines colonosc opy, UTD with mammogra m. Problem Code: Z00.00; Problem Code Type: ICD-10; Not Available [facility] 3 04:17:38 Counseli ng Completed 201701/10/2018 12/28/19 18 - Comments only - Lynne Ramírez APRN - Pt with multiple chronic issues. Mammogra m ordered. Declines colonosc opy, given IFOB. Will need Td this year. No lab results rec'd from previous provider , will obtain from [facility] site. Problem Code: Z71.89; Problem Code Type: ICD-10; Not Available [facility] 3 04:17:38 Aneurysm 506882257 Active 201701/19/20 18 - Comments only - Minerva Jon - Consulte d with neurolog y. Likely too small for surgery or concern. Problem Code: I72.9; Problem Code Type: ICD-10; [address], [place], [address] , [facility]. 4 11:45:05 Nicotine dependen ce 57471607 Active 201911/04/19 23 - Comments only - Kyaw Lopez RPA - She has been slowly weaning back. Now down to a third of a pack a day. She is motivate d to quit altogeth er. Problem Code: F17.200; Problem Code Type: ICD-10; Not Available [facility] 3 04:17:39 Screenin g for malignan t neoplasm of breast Active 2021 Problem Code: Z12.39; Problem Code Type: ICD-10; Not Available [facility] 3 04:17:39 Onychomy cosis due to dermatop hyte 537032919 Active 202111/04/19 22 - Comments only - Lynne Ramírez TRAFFIC ADMINISTRATOR - Referral to podiatry , per pt request. Problem Code: B35.1; Problem Code Type: ICD-10; Not Available [facility] 3 04:17:39 Dyspnea 165304686 Active 202111/04/19 23 - Comments only - Kyaw Lopez RPA - Recent evaluati on with pulmonol ogy. She had spiromet ry and is schedule d for methacho line challeng e test. She uses her Advair inhaler twice daily routinel y. Occasion al use of rescue inhaler. Asthma as a child. Has follow-u p with pulmonol ogy. Problem Code: R06.02; Problem Code Type: ICD-10; Not Available [facility] 3 04:17:40 Chest pain 12885054 Active 202111/04/19 23 - Comments only - Kyaw Lopez RPA - Right flank pain for the past 2 months. No inciting injury or activity . She has had reassuri ng blood work and CT scans. No signific ant radiogra phic abnormal ity. The nature is most consiste nt with costocho ndritis. Reassura nce provided . Reviewed conserva tive measures . Moist heat. The discomfo rt has been improvin g. Problem Code: R07.9; Problem Code Type: ICD-10; Not Available [facility] 3 04:17:40 Pain of joint of knee 7113138888 Completed 201809/28/2021 Problem Code: M25.569; Problem Code Type: ICD-10; Not Available [facility] 3 04:17:40 Urgent desire to urinate 20691060 Completed 201809/28/2021 Problem Code: R39.15; Problem Code Type: ICD-10; Not Available [facility] 3 04:17:40 Severe obesity 80264849745 104 Completed 201703/05/2019 Problem Code: E66.01; Problem Code Type: ICD-10; Not Available [facility] 3 04:17:40 Acute upper respirat ory infectio n 53125138 Completed 202105/04/2022 Problem Code: J06.9; Problem Code Type: ICD-10; Not Available [facility] 3 04:17:41 Exposure to sexually transmis sible disorder Completed 201803/05/2019 Problem Code: Z20.2; Problem Code Type: ICD-10; Not Available [facility] 3 04:17:41 Hyperlip idemia 67004394 Completed 201703/23/2023 Problem Code: E78.5; Problem Code Type: ICD-10; Not Available [facility] 3 04:17:41 Screenin g for malignan t neoplasm of colon Completed 201803/28/2020 Problem Code: Z12.11; Problem Code Type: ICD-10; Not Available [facility] 3 04:17:41 Pain in thoracic spine 966635687 Completed 201809/28/2021 Problem Code: M54.9; Problem Code Type: ICD-10; Not Available [facility] 3 04:17:41 Impaired fasting glycemia 870178501 Completed 201708/23/2019 Problem Code: R73.01; Problem Code Type: ICD-10; Not Available [facility] 3 04:17:41 Urinary tract infectio us disease 66987027 Completed 202009/28/2021 Problem Code: N39.0; Problem Code Type: ICD-10; Not Available [facility] 3 04:17:42 Retentio n of urine 041736975 Completed 201809/28/2021 Problem Code: R33.9; Problem Code Type: ICD-10; Not Available [facility] 3 04:17:42 Altered bowel function 69134860 Completed 201909/28/2021 Problem Code: R19.4; Problem Code Type: ICD-10; Not Available [facility] 3 04:17:42 Chronic kidney disease stage 3 153087789 Completed 201703/05/2019 Not Available [facility] 3 04:17:42 Problem Notes None recorded. Medical Equipment None Reported. Allergies Allergen ID Allergen Name Allergen Category Reaction Reaction Severity Criticality Documentation Date Start Date Code Code System Note Provider Name and Address Organization Details Recorded Time 86046 diclofena c medicatio n Not available Not available Not available 05/06/20232017 3355 [facility] 4 10:08:56 66933 gabapenti n medicatio n other mild low 11/04/2023 11725 RxNorm Fatig ue MORRIS Carl, [facility] 4 10:09:34 Medications Name Sig Start Date [...] BY MOUTH EVERY DAY NEEDED FOR ANXIETY 03/02 completed Not Available Not Available Not Available Synthroid 200 mcg tablet TAKE ONE TABLET BY MOUTH EVERY DAY active Not Available Not Available No t Available naltrexon e 50 mg tablet TAKE ONE-HALF TABLET BY MOUTH EVERY DAY active Not Available Not Available No t Available clobetaso l 0.05 % topical cream apply [...] Not Available Not Available No t Available levothyro xine 25 mcg tablet TAKE 1 TABLET BY MOUTH THREE TIMES PER WEEK, WITH DAILY 200MCG DOSE 03/02 completed Not Available Not Available Not Available Macrobid 100 mg capsule Take 1 capsule by mouth twice a day 12/06 completed Not Available Not Available Not Available Zofran 4 mg tablet 1 tablet every 8 hours as needed for nausea 2019 active Not Available Not Available Not Avai lable alprazola m 0.5 mg tablet TAKE ONE TABLET BY MOUTH DAILY NEEDED FOR PANIC ATTACKS active Not Available Not Available No t Available Vitamins B Complex tablet take 1 tablet [...] 2 puff as directed twice a day 03/02 completed lexi anderson. Patient state she no longer takes this. Does not find it makes a differen ce. She will discuss with lexi anderosn.Gladys ent is unsure which dose she is suppose to be on Not Available Not Available Not Available Synthroid 50 mcg tablet TAKE ONE TABLET BY MOUTH EVERY DAY ALONG WITH THE 200MCG TABLET active Not Available Not Available No t Available betametha sone dipropion ate 0.05 % [...] Not Available Not Avai lable Glucosami ne 03/02 completed Not Available Not Available Not Available walker 2017 active Not Available Not Available Not Avai lable Advair HFA 115 mcg-21 mcg/actua tion aerosol inhaler 2 puff as directed twice a day USE 2 INHALATI ONS TWICE A DAY 11/03 completed pulmonol ogemerson. Patient state she no longer takes this. Does not find it makes a differen ce. She will discuss with puljyothi anderson.Gladys ent is unsure which dose she [...] Details Last Updated DateTime 4 166.37 cm 63.4 kg/m2 632514. 25 g 98.2 [degF] 14 /min 71 /min 116 mm[Hg] 80 mm[Hg] ARTUR MALCOLM RN [facility] 4 11:49:34 Social History Question Answer Notes LastModified by Organization Details LastModified Time Tobacco Smoking Status Current Every Day Smoker SABAS MCLAIN RN [facility], [facility] 07/01/2023 13:34:40 Do You Have An [...] Do You Have A Medical Power Of Suction Operator? No Information not available 07/01/2023 What Was [...] Age of this Age Resolved Age Notes LastModified by Organization Details LastModified Time Father Family history of acute medical disorder emphys gabriel [email or web address] Not available 05/06/2023 03:50:20 Father Family history of alcoholism [email or web address] Not available 05/06 03:50:21 Father No family history of respiratory disease COPD [email or web address] Not available 2022 03:50:22 Father Family history of diabetes mellitus type 1 [email or web address] Not available 2022 03:50:23 Mother Family history of acute medical disorder SC [email or web address] Not available 2022 03:50:20 Mother Family history of heart failure [email or web address] Not available 2022 03:50:23 Sister Family history of acute medical disorder lupus [email or web address] Not available 2022 03:50:21 Medical History No medical history recorded. Gynecological HistoryNo gynecological history recorded. Obstetrics History GPAL:G 0 P 0 0 0 0 Immunizations Vaccine Type Date Status Provider Name and Address Organization Details Recorded Time Influenza, split virus, quadrivalent, PF 07/01/2023 completed KYAW LOPEZ PA-C [address], [place], [address], [facility] 07/01/2023 15:11:05 COVID-19, mRNA, LNP-S, PF, troy-sucrose, 30 mcg/0.3 mL 07/01/[address], [place], [address], [facility] 07/01/2023 15:11:05 Tdap 12/01/2018 completed Not Available [facility] 03:55:02 Td(adult) unspecified formulation 12/31/2007 completed Not Available [facility] 05/06/2023 03:55:03 Influenza, split virus, quadrivalent, PF 05/04/2022 completed Not Available [facility] 05/06/2023 03:55:03 COVID-19, mRNA, LNP-S, PF, 100 mcg/0.5mL dose or 50 mcg/0.25mL dose 09/22/2021 completed Not Available [facility] 05/06/2023 03:55:03 COVID-19, mRNA, LNP-S, PF, 100 mcg/0.5mL dose or 50 mcg/0.25mL dose 10/19/2021 completed Not Available [facility] 05/06/2023 03:55:03 COVID-19, mRNA, LNP-S, bivalent, PF, 30 mcg/0.3 mL dose 05/04/2022 completed Not Available [facility] 05/06/20 03:55:03 pneumococcal polysaccharide PPV23 01/20/2010 completed Not Available [facility] 2022 03:55:03 Hep B, unspecified formulation 10/07/2015 completed Not Available [facility] 05/06/2023 03:55:03 Hep B, unspecified formulation 03/12/2016 completed Not Available [facility] 05/06/2023 03:55:04 Past Encounters Encounter ID Performer Location Encounter Start Date Encounter Closed Date Diagnosis/Indication Diagnosis SNOMED-CT Code Diagnosis ICD10 Code [id number] KYAW LOPEZ PA-C [address] [place] [address] 03/02/2024 11:37:02 03/02/2024 14:27:49 Body mass index 40+ - severely obese 281896016 Z68.44 Screening for malignant neoplasm of breast 475758667 Z12.39 Nicotine dependence 5629 4008 F17.200 Generalize d anxiety disorder 26004914 F41.1 Hypothyroidism 88877912 E03.9 Health Concerns Section Related Observation LastModified by Organization Detai ls LastModified Time None Recorded Concern Status LastModified by Organization Details LastModified Time None Recorded Payers Encounter Date Sequence Insurance Name Policy Number Policy [place] Covered Member ID Hull Member ID Guarantor Name 03/02/2024 2 [facility] (MEDICAID) Vanesa Marrero [id number] Vanesa Marrero 03/02/2024 1 [facility] Vanesa Marrero [id number] Vanesa Marrero Notes Date Note Type Note Provider Name and Address Organization Details Recorded Time 03/02/2024 text/html HPI Notes: Vibha barger is here for followup of obesity and nicotine dependence. She continues to follow with endocrinology for hypothyroid. Her thyroid supplementation is in the process of being titrated off neck. She feels that she has not lost weight due to this. Continues to tolerate Wellbutrin and naltrexone well. Unfortunately her smoking has increased a bit due to underlying stressors. She is looking for recommendations with psychiatry. Currently seeing [facility] services but does feel the fit is good. KYAW LOPEZ PA-C [address], [place], [address], [facility], [facility]. 03/02/2024 12:15:33 OBGyn Episode No OBEpisode recorded.
--- OUTSIDE RECORDS SUMMARY | 2024-04-20 00:21 | XMS_ITS | Encounter Summary ---
Author Organization [facility] Address [address] [place] [address] Care Team Providers Care Balling Head Tender Name Role Phone Mariaelena Garces IT AUDITOR Unavailable [phone] Kyaw Ahn RPA Primary Care Provider [phone] Encounter Details Date Type Department Care Team (Late st Contact Info) Description 09/05/2023 Orders Only [facility] Endocrinology [address] [place], [place] [id number] Brenna Carmona MD [address] [place] [address] Social History Tobacco Use Types [...] Contact Info) Description 08/07/2024 10:45 EST Telemedicine [facility] Endocrinology [address] [place], [place] [id number] Ricky Wei MD [address] [address] documented as of this encounter Visit Diagnoses Not on filedocumented in this encounter Care Teams Balling Head Tender Relationship Specialty Start Date End Date Kyaw Ahn RPA [address] [id number] PCP - General Family Medicine - Primary Care 09/05/23 Mariaelena Garces NP [address] [place] [address] Nurse Practitioner Endocrinology, Diabetes and Metabolism 07/20/21 documented as of this encounter
--- OUTSIDE RECORDS SUMMARY | 2024-04-20 00:21 | XMS_ITS | Encounter Summary ---
Author Organization [facility] Address [address] [place] [address] Care Team Providers Care Bundles Hanger Name Role Phone Lynne Ramírez JAVID Primary Care Provider [phone] Mariaelena Garces RETIREMENT BENEFITS SPECIALIST Unavailable [phone] Kyaw Ahn RPA Primary Care Provider [phone] Encounter Details Date Type Department Care Team (Late st Contact Info) Description 11/04/2021 Lab Requisition [facility] Pathology & Laboratory Medicine - [facility] [address] [place], [place] [address] Outr Resulting Lab, Provider Social History Tobacco [...] Contact Info) Description 08/07/2024 10:45 EST Telemedicine [facility] Endocrinology [address] [place] [address] Ricky Wei MD [address] [facility] [address] [place] [phone] documented as of this encounter Procedures Procedure Name Priority Date/Time Associated Diagnosis Comments ZZCOVID-19 TEST [facility] PCR Today 11/03/2021 13:15 EDT COVID-19 TESTING Routine 11/03/2021 13:1 5 EDT documented in this encounter Results * COVID-19 TEST [facility] PCR (11/03/2021 13:15 EDT) Swab 11/03/2021 13:1 5 EDT 11/04/2021 16:37 EDT Provider Outr Resulting Lab MICROBIOLOGY - GENERAL ORDERABLES [facility] [address] [place] [address] * COVID-19 TESTING (11/03/2021 13:15 EDT) COVID-19 rt-PCR Result Negative Negative 11/05/2021 11:27 EDT [facility] Comment: This test has [...] performed using the nasreen SARS-CoV-2 assay ([employer] on the Nasreen 6800 System Performing Lab Nasreen [address] [facility] 11/05/2021 11:27 EDT [facility] Swab 11/03/2021 13:1 5 EDT 11/04/2021 16:37 EDT Provider Outr Resulting Lab MICROBIOLOGY - GENERAL ORDERABLES [facility] [address] [place] [address] documented in this encounter Visit Diagnoses Not on filedocumented in this encounter Care Teams Bundles Hanger Relationship Specialty Start Date End Date Lynne Ramírez FNP [address] [place] [address] PCP - General 03/12/19 09/04/23 Kyaw Ahn RPA [address] [facility] [address] [place] [id number] PCP - General Family Medicine - Primary Care 09/05/23 Mariaelena Garces NP [address] [place] [address] [place] [phone] Nurse Practitioner Endocrinology, Diabetes and Metabolism 07/20/21 documented as of this encounter
--- OUTSIDE RECORDS SUMMARY | 2024-04-20 00:21 | XMS_ITS | Encounter Summary ---
Author Organization [facility] Address [address] [place] [address] Care Team Providers Care Gym Instructor Name Role Phone Mariaelena Garces JIG MAKER Unavailable [phone] Kyaw Ahn RPA Primary Care Provider [phone] Reason for Visit * Reason Onset Date Comments Medications Refill 12/26/2023 Encounter Details Date Type Department Care Team (Late st Contact Info) Description 12/26/[address] [facility] Endocrinology [address] [place] [address] Samantha Mcguire, MORRIS [address] [place] [address] Medications Refill Social History Tobacco Use Types [...] mcg every day) 12 Tablet 3 12/26/2023 02/07/2024 documented in this encounter Plan of Treatment Upcoming Encounters Date Type Department Care Team (Late st Contact Info) Description 08/07/2024 10:[address] [facility] Endocrinology [address] [place], [place] [address] Ricky Wei MD [address] [place] [phone] documented as of this encounter Visit Diagnoses Not on filedocumented in this encounter Discontinued Medications Medication Sig Discontinue Reason Start Date End Da te levothyroxine (SYNTHROID) 25 mcg tablet Take one extra tablet of 25 mcg three times a week (she is to continue with 200 mcg every day) Reorder 09/05/2023 12/26/2023 documented as of this encounter Care Teams Gym Instructor Relationship Specialty Start Date End Date Kyaw Ahn RPA [address] [place] [address] PCP - General Family Medicine - Primary Care 09/05/23 Mariaelena Garces NP [address] [place] [phone] Nurse Practitioner Endocrinology, Diabetes and Metabolism 07/20/21 documented as of this encounter
--- OUTSIDE RECORDS SUMMARY | 2024-04-20 00:21 | XMS_ITS | Encounter Summary ---
Author Organization [facility] Address [address] [place] [address] Care Team Providers Care Fruit Ii Farmworker Name Role Phone Lynne Ramírez JAVID Primary Care Provider Mariaelena Goins SALES DEVELOPMENT SPECIALIST Unavailable [phone] Reason for Visit * Reason Onset Date Comments Thyroid Problem 12/25/2021 Encounter Details Date Type Department Care Team (Late st Contact Info) Description 12/25/2021 Telephone [facility] [place] [address] [place] [address] Phoebe Lew RN Thyroid Problem Social History [...] Goins NP - 12/25/2021 1108 EDT Sent [facility] message. * Telephone Encounter - Phoebe Lew RN - 12/25/2021 0954 EDT States she had labs done at [facility] and tsh was high- taking daily on an empty stomach- no vitamins around taking med. No recent illness- taking brand synthroid and liothyronine as med list states- whatto do with dose ? - can respond via [facility] documented in this encounter Plan of Treatment Upcoming Encounters Date Type Department Care Team (Late st Contact Info) Description 08/07/2024 10:45 EST Telemedicine [facility] Endocrinology [address] [place] [address] Ricky Wei MD [address] [facility] [address] [place] [phone] documented as of this encounter Visit Diagnoses Not on filedocumented in this encounter Historical Medications * This list may reflect changes made after this encounter. Medication Sig Dispensed Refills Start Date End Date levothyroxine (SYNTHROID) 200 mcg tablet every 24 hours. 01/27/2022 added in this encounter Care Teams Fruit Ii Farmworker Relationship Specialty Start Date End Date Lynne Ramírez FNP [address] [place] [address] PCP - General 03/12/19 09/04/23 Mariaelena Goins, DORIS [address] [place] [phone] Nurse Practitioner Endocrinology, Diabetes and Metabolism 07/20/21 documented as of this encounter
--- OUTSIDE RECORDS SUMMARY | 2024-04-20 00:21 | XMS_ITS | Encounter Summary ---
Author Organization [facility] Address [address] [place] [address] Care Team Providers Care Security Attendant Name Role Phone Mariaelena Garces FLYER BUILDER Unavailable [phone] Kyaw Ahn RPA Primary Care Provider [phone] Reason for Visit * Reason Onset Date Comments Medication Management 09/05/2023 Encounter Details Date Type Department Care Team (Late st Contact Info) Description 09/05/2023 Telephone [facility] [place] [address] [place] [phone] Chayito Villegas, gauge checker Management Social History Tobacco Use Types Packs/Day [...] scanned into patient's chart. Fax received from [facility] in [facility] and scanned into patient's chart. Sending to Dr. Carmona for guidance. documented in this encounter Plan of Treatment Upcoming Encounters Date Type Department Care Team (Late st Contact Info) Description 08/07/2024 10:45 EST Telemedicine [facility] Endocrinology [address] [place] [phone] Ricky Wei MD [address] [place] [phone] documented as of this encounter Visit Diagnoses Not on filedocumented in this encounter Care Teams Security Attendant Relationship Specialty Start Date End Date Kyaw Ahn RPA [address] [phone] PCP - General Family Medicine - Primary Care 09/05/23 Mariaelena Garces NP [address] [place] [phone] Nurse Practitioner Endocrinology, Diabetes and Metabolism 07/20/21 documented as of this encounter
--- OUTSIDE RECORDS SUMMARY | 2024-04-20 00:21 | XMS_ITS | Encounter Summary ---
Author Organization [facility] Address [address] [place] [address] Care Team Providers Care Geology Faculty Member Name Role Phone Lynne Ramírez JAVID Primary Care Provider [phone] Mariaelena Garces FINE GRADE BULLDOZER OPERATOR Unavailable [phone] Reason for Visit * Reason Comments Thyroid Problem Encounter Details Date Type Department Care Team (Late st Contact Info) Description 01/27/2022 8:00 EDT Telemedicine [facility] [place] [address] [place] [address] Brenna Darnell MD [address] [facility] [address] [place] [phone] Hypothyroidism, postablative (Primary Dx); Medication [...] Brenna Pope MD - 01/27/2022 0800 EDT [facility] [place] Today's visit was provided through [...] 10:45 EST Telemedicine [facility] Endocrinology [address] [place], [place] [phone] Ricky Wei MD [address] [phone] documented as of this encounter [...] route. added in this encounter Care Teams Geology Faculty Member Relationship Specialty Start Date End Date Lynne [place] [address] PCP - General 03/12/19 09/04/23 Mariaelena Garces NP [address] [place] [phone] Nurse Practitioner Endocrinology, Diabetes and Metabolism 07/20/21 documented as of this encounter
--- OUTSIDE RECORDS SUMMARY | 2024-04-20 00:21 | XMS_ITS | Encounter Summary ---
Author Organization [facility] Address [address] [place] [address] Care Team Providers Care International Affairs Vice President Name Role Phone Mariaelena Garces COUNTER CHECKER Unavailable [phone] Kyaw Ahn RPA Primary Care Provider [phone] Reason for Visit * Reason Comments Medications Refill Encounter Details Date Type Department Care Team (Late st Contact Info) Description 11/24/2023 Refill [facility] Endocrinology [address] [place], [place] [address] Mariaelena Garces COUNTER CHECKER [address] [facility] [address] [place] [phone] Medications Refill Social History Tobacco [...] Contact Info) Description 08/07/2024 10:45 EST Telemedicine [facility] Endocrinology [address] [place] [address] Ricky Wei MD [address] [place] [phone] documented as of this encounter Visit Diagnoses Not on filedocumented in this encounter Discontinued Medications Medication Sig Discontinue Reason Start Date End Da te levothyroxine (SYNTHROID) 200 mcg tablet Take 1 Tablet by mouth daily. Branded name necessary 05/26/2023 11/24/2023 documented as of this encounter Care Teams International Affairs Vice President Relationship Specialty Start Date End Date Kyaw Ahn RPA [address] [place] [address] PCP - General Family Medicine - Primary Care 09/05/23 Mariaelena Garces NP [address] [place] [phone] Nurse Practitioner Endocrinology, Diabetes and Metabolism 07/20/21 documented as of this encounter
--- OUTSIDE RECORDS SUMMARY | 2024-04-20 00:21 | XMS_ITS | Clinical Summary ---
Author Organization [facility] Address [address] [place] [address] Care Team Providers Care Bedspread Folder Name Role Phone Mariaelena Garces WHOLESALE LOAN PROCESSOR Unavailable [phone] Kyaw Ahn RPA Primary Care Provider [phone] Allergies Active Allergy Reactions Criticality Noted Date [...] ORAL) Take 1 Tab by mouth. Active [id number]-Fish Oil 1,200 (144-216) mg capsule Take 2 [...] EVERY DAY 90 Tablet 1 11/24/2023 Active SYNTHROID 50 mcg tablet Take 1 Tablet by mouth daily. Take one tablet every day along with the 200 mcg tab (total daily dose 250 mcg) 90 Tablet 3 02/07/2024 Active Active Problems Problem Noted Date Diagnosed Date Postprocedural hypothyroidism 07/23/2021 Myopathy 01/26/2021 Osteoarthritis of both knees 01/26/2021 Tobacco dependence 04/22/2020 Liver lesion 04/22/2020 Fatigue 04/22/2020 Aneurysm ([facility]) 04/22/2020 History of thyroid cancer 04/22/2020 Stage 3 chronic kidney disease ([facility]) 017 Myofascial pain 09/07/2016 NSAID long-term use 09/07/2016 IFG (impaired fasting glucose) 11/12/2015 Hyperlipidemia, unspecified 11/12/2015 Prurigo nodularis 10/03/2015 History of nicotine dependence 03/21/2014 Pain in joint, lower leg 03/21/2014 Lumbosacral spondylosis without myelopathy 11/21 Spondylosis of lumbar spine 10/10/2013 Mechanical low back pain 09/12/2013 Sleep apnea 08/23/2013 Morbid obesity ([facility]) 08/23/2013 Depression 08/23/2013 Bilateral knee pain 08/23/2013 Panic disorder 02/28/2013 Encounters Date Type Department Care Team Description 02/07/2024 12:25 EDT Phlebotomy Only [facility] - Outpatient Phlebotomy Drawing [address] [place] [address] Lab, [facility] Postprocedural hypothyroidism; History of thyroid cancer 02/07/2024 11:30 EDT Office Visit [facility] Endocrinology [address] [place] [address] Brenna Carmona MD Postprocedural hypothyroidism (Primary Dx); History of thyroid cancer 02/07/2024 Orders Only [facility] Endocrinology [address] [place] [address] Brenna Carmona MD from Last 3 Months Immunizations Name Administration [...] Sign Reading Time Taken Comments Blood Pressure 110/78 02/07/2024 1133 EDT Pulse 93 02/07/2024 1133 EDT Temperature - - Respiratory Rate - - Oxygen Saturation 99% 02/07/2024 1133 EDT Inhaled Oxygen Concentration - - Weight 175.5 kg (387 lb) 02/07/2024 1133 EDT Height 167 cm (5' 5.75) 02/07/2024 1133 EDT Body Mass Index 62.94 02/07/2024 1133 EDT Plan of Treatment Upcoming Encounters Date Type Department Care Team (Late st Contact Info) Description 08/07/2024 10:45 EST Telemedicine [facility] [place] [address] [place] [address] Ricky Wei MD [address] [facility] [address] [place] [phone] Health Maintenance Due Date Last Done Comments Hepatitis C Screen 1965 Pneumococcal Immunization (2 of 2 - PCV) 01/20/2011 01/20/2010 RSV Immunization ( o r 60+ Years) (1 - 1-dose 60+ series) 2023 COVID-19 Vaccine (2023-2 5 season) 2024 07/01/2023, 05/04/2022, 10/19/2021, Additional history exists Procedures Procedure Name Priority Date/Time Associated Diagnosis Comments T4 FREE Today 02/07/2024 12:29 EDT Postprocedural hypothyroidism History of thyroid cancer THYROGLOBULIN, TUMOR MARKER, S Routine 02/07/2024 12:29 EDT Postprocedural hypothyroidism History of thyroid cancer THYROID CASCADE Routine 02/07/2024 12:29 EDT Postprocedural hypothyroidism History of thyroid cancer from Last 3 Months Results * THYROGLOBULIN, TUMOR MARKER, S (02/07/2024 12:29 EDT) Thyroglobulin Antibody, S <1.8 <1.8 IU/mL 02/08/2024 19:55 EDT [facility] Thyroglobulin, Tumor Marker <0.1 ng/mL 02/08/2024 19:55 EDT [facility] Comment: REFERENCE VALUE Athyrotic <0.1 Intact Thyroid <=33 Thyroglobulin Interpretation SEE NOTE 02/08/2024 19:55 EDT [facility] Comment: Thyroglobulin (Tg) levels must be interpreted in the context of TSH levels, serial Tg measurements and radioiodine ablation status. Tg levels <0.1 ng/mL in athyrotic individuals on suppressive therapy indicate a minimal risk (<1-2%) of clinically detectable recurrent papillary/follicular thyroid cancer. ADDITIONAL INFORMATION PLEASE NOTE: The given cutoff of <1.8 IU/mL is for the detection of potential thyroglobulin antibody (TgAb) interference in thyroglobulin immunoassays. Thyroglobulin flagging is based on athyrotic reference values. A thyroglobulin antibody (TgAb) reference cutoff of <4.0 IU/mL may be more suitable for the evaluation of autoimmune thyroiditis. The thyroglobulin and thyroglobulin antibody testing methods are immunoenzymatic assays manufactured by [employer] and performed on the [employer] DXI 800. Values obtained from different assay methods or kits may be different and cannot be used interchangeably. The results cannot be interpreted as absolute evidence for the presence or absence of malignant disease. Test Performed by: [facility] [address] [place] [address] Headwaitress: Hardik Simon Ph.D.; CLIA# [id number] Blood VENOUS BLOOD / Unknown Venipuncture / Unknown 02/07/2024 12:29 EDT 02/07/2024 13:49 EDT Brenna Griffin MD CHEMISTRY & BL OOD GAS ORDERABLES [facility] [address] [place] [address] * (ABNORMAL) THYROID CASCADE (02/07/2024 12:29 EDT) TSH 7.38(H) 0.47 - 4.68 mIU/L 02/07/2024 14:49 EDT [facility] Blood VENOUS BLOOD / Unknown Venipuncture / Unknown 02/07/2024 12:29 EDT 02/07/2024 13:49 EDT Narrative [facility] - 02/07/2024 14:49 EDT NOTE: The results of this assay can be falsely lowered due to the consumption of Biotin. Brenna Griffin MD CHEMISTRY & BL OOD GAS ORDERABLES Performing Organization Address City/[facility]/ZIP Co de Phone Number [facility] [address] [place] [address] * T4 FREE (02/07/2024 12:29 EDT) T4, Free 1.1 0.8 - 2.2 ng/dL 02/07/2024 15:16 EDT [facility] Blood VENOUS BLOOD / Unknown Venipuncture / Unknown 02/07/2024 12:29 EDT 02/07/2024 13:49 EDT Brenna Griffin MD CHEMISTRY & BL OOD GAS ORDERABLES [facility] [address] [place] [phone] from Last 3 Months Janes, Vanesa F Personal/Family Self 1965 [address] [facility] [place] [place] [address] Janes, Vanesa F Personal/Family Self 1965 [address] [facility] [place] [address] Janes, Vanesa F Personal/Family Self 1965 [address] [facility] [place] [address] Janes, Vanesa F Personal/Family Self 1965 [address] [facility] [address] Care Teams Bedspread Folder Relationship Specialty Start Date End Date Kyaw Ahn RPA [address] [place] [phone] PCP - General Family Medicine - Primary Care 09/05/23 Mariaelena Garces NP [address] [place] [phone] Nurse Practitioner Endocrinology, Diabetes and Metabolism 07/20/21
--- OUTSIDE RECORDS SUMMARY | 2024-04-20 00:21 | XMS_ITS | Data Portability ---
Author Organization [place] - [facility] Address [address] [place] [address] Assessment Encounter Date Assessment Date Assessment LastModified by Organization Details LastModified Time 04/18/2024 04/18/2024 The total time devoted to today's encounter, including both the unea-mq-ysga time with the patient and/or family/caregi imtiaz and rif-dxjt-at-f sebastian time I personally spent is 20 minutes. lorraine Not available 04/18/2024 11:04:30 Plan of Treatment Reminders Order Date Submit Date Provider Last Modified By Organization Details Last Modified Time Details Appointments Nurse Visit 20 2023 01:20P M [facility] Nursing Staff Not available Not available Not available Annual Wellness Exam 40 2024 10:30A M KYAW AHN Not available Not available Not available Lab TSH + free T4, serum - Right AC 1 tiger 2023 024 [email or web address] [facility] (Registration ), [address] [place] [address] [place], [address], 10/24/2023 12:52:23 lipid panel, serum - Right AC 1 tiger 2023 024 [email or web address] [facility] (Registration ), [address] [place] [address] [place], [address], 10/24/2023 13:13:10 CMP, serum or plasma - Right AC 1 tiger 2023 024 LIAT [facility] (Registration ), [address] [place] [address] [place], [address], 07/26/2023 16:56:28 TSH + free T4, serum - Right AC 1 tiger 2023 024 [email or web address] [facility] (Registration ), [address] [place] [address] , [place], [address], 10/24/2023 13:13:10 Referral physical therapis t referral - Right knee pain with Tightnes s of hamstrin g attachme nt at knee. Morbid obesity 2023 024 [email or web address] [facility], [address] [place] [address], [address], [place], [address], 01/09/2024 14:38:11 pain manageme nt referral - Increasi ng low back pain with history of good response to radiofre quency ablation . The last in 2019. 2023 024 [email or web address] Ricky Banerjee DO, [address] [place] [address] , [facility] [address], [place], [address], 03/29/2024 14:24:25 psychiat rist referral - currentl y followin g with [facility] in [place]. Would like to switch. Generali zed anxiety 2023 024 [email or web address] Sandhya Brown chief mate, [address] [facility], [place], [address], 04/18/2024 14:43:48 Procedures None recorded . Surgeries None recorded . Imaging MAMMO, screenin g, bilatera l 2023 024 [email or web address] [facility], [address], [place], [address], 12/09/2023 15:15:40 MAMMO, screenin g, bilatera l 2023 024 [email or web address] [facility], [address], [place], [address], 03/02/2024 14:27:50 Medication Orders None recorded . Patient TargetsNo targets recorded. Patient Instructions Encounter Date Encounter Id Patient Instructions Last Modified By Organization Details Last Modified Time 07/01/2023 [id number] mammogram: about this test lorraine Not available 07/01/2023 15:18:43 11/04/2023 [id number] Vanesa Hess we will refer you to the pain clinic to consider another RFA of your lower back. lorraine Not available 11/04/2023 10:32:18 03/02/2024 [id number] Vanesa Hess we will schedule a low [...] anxiety disorder currently following with [facility] in [place]. Would like to switch. Generalized anxiety Referring Physician: Family Cintia Menjivar, Encounter Date: 04/18/2024 Results Created Date Observation Date Name Description Value Unit Range Abnormal Flag Note LastModifiedBy Organization Detail LastModifiedTime 07/26/19 24 07/26/2023 COMPR EHENS SARANYA METAB OLIC PANEL calcium 9.2 mg/dL 8.5-10 .1 normal Not Available [address] [place], [address] 07/26/2023 16:56:27 07/26/19 24 07/26/2023 COMPR EHENS SARANYA METAB OLIC PANEL glucose 104 mg/dL 74-106 normal Not Available Ashley avilez [address] [place], [address] 07/26/2023 16:56:27 07/26/19 24 07/26/2023 COMPR EHENS SARANYA METAB OLIC PANEL BUN 12 mg/dL 7-18 normal Not Available Ashley avilez [address] [place], [address] 07/26/2023 16:56:27 07/26/19 24 07/26/2023 COMPR EHENS SARANYA METAB OLIC PANEL creatinine 1.0 mg/dL 0.55-1 .02 normal Not Available [address] [place], [address] 07/26/2023 16:56:27 07/26/19 24 07/26/2023 COMPR EHENS SARANYA METAB OLIC PANEL estimated GFR 64.49 mL/min /1.73m 2 The eGFR is calcu lated from a serum creat inine using the CKD-E PI 2020 equat ion. Other varia bles requi red for the equat ion are gende r and age; this equat ion does not inclu de a race coeff icien t. This equat ion has simil ar overa ll perfo rmanc e to previ ous equat ions excep t value s may diffe r, in parti cular , in patie nts with highe r value s of eGFR and young er-ag ed adult s. Not Available [address] [place], [address] 07/26/2023 16:56:27 07/26/19 24 07/26/2023 COMPR EHENS SARANYA METAB OLIC PANEL total protein 6.8 g/dL 6.4-8. 2 normal Not Available [address] [place], [address] 07/26/2023 16:56:27 07/26/19 24 07/26/2023 COMPR EHENS SARANYA METAB OLIC PANEL albumin 3.6 g/dL 3.4-5. 0 normal Not Available [address] [place], [address] 07/26/2023 16:56:27 07/26/19 24 07/26/2023 COMPR EHENS SARANYA METAB OLIC PANEL bilirubin, total 0.3 mg/dL 0.2-1. 0 normal Not Available [address] [place], [address] 07/26/2023 16:56:27 07/26/19 24 07/26/2023 COMPR EHENS SARANYA METAB OLIC PANEL alk phos 85 U/L 46-116 normal Not Available [address] [place], [address] 07/26/2023 16:56:27 07/26/19 24 07/26/2023 COMPR EHENS SARANYA METAB OLIC PANEL sodium 143 mmol/ L 136-14 5 normal Not Available [address] [place], [address] 07/26/2023 16:56:27 07/26/19 24 07/26/2023 COMPR EHENS SARANYA METAB OLIC PANEL potassium 4.4 mmol/ L 3.5-5. 1 normal Not Available [address] [place], [address] 07/26/2023 16:56:27 07/26/19 24 07/26/2023 COMPR EHENS SARANYA METAB OLIC PANEL chloride 105 mmol/ L 98-107 normal Not Available [address] [place], [address] 07/26/2023 16:56:27 07/26/19 24 07/26/2023 COMPR EHENS SARANYA METAB OLIC PANEL CO2 29.7 mmol/ L 21.0-3 2.0 normal Not Available [address] [place], [address] 07/26/2023 16:56:27 07/26/19 24 07/26/2023 COMPR EHENS SARANYA METAB OLIC PANEL anion gap 8.3 mmol/ L 3-11 normal Not Available [address] [place], [address] 07/26/2023 16:56:27 07/26/19 24 07/26/2023 COMPR EHENS SARANYA METAB OLIC PANEL AST 19 U/L 15-37 normal Not Available Ashley [address] [place], [address] 07/26/2023 16:56:27 07/26/19 24 07/26/2023 COMPR EHENS SARANYA METAB OLIC PANEL ALT 35 U/L 14-59 normal Not Available [address] [place], [address] 07/26/2023 16:56:27 07/26/19 24 07/26/2023 LIPID 2 cholesterol 194 mg/dL <200 Not Available [address] [place], [address] 07/26/2023 16:56:28 07/26/19 24 07/26/2023 LIPID 2 triglyceride 246 mg/dL <150 high Not Available [address] [place], [address] 07/26/2023 16:56:28 07/26/19 24 07/26/2023 LIPID 2 HDL cholesterol 46 mg/dL 40-60 Not Available [address] [place], [address] 07/26/2023 16:56:28 07/26/19 24 07/26/2023 LIPID 2 calculated LDL 99 mg/dL <100 Natio nal Sola stero l Educa tion Progr am (NCEP -ATPI II) class ifica tions : Sola stero l <200 mg/dL Cathy able Sola stero l 200-2 39 mg/dL Borde rline High Sola stero l >or=2 40 mg/dL High HDL <40 mg/dL Low HDL >or=6 0 mg/dL High LDL <100 mg/dL Optim al LDL 100-1 29 mg/dL Near Optim al/Ab ove Optim al LDL 130-1 59 mg/dL Borde rline High LDL 160-1 89 mg/dL High LDL >or=1 90 mg/dL Very High *The above refer ence range is for adult s 18 years or older . Not Available [address] [place], [address] 07/26/2023 16:56:28 07/26/19 24 07/26/2023 TSH TSH 6.95 uIU/m L 0.36-3 .74 high NOTE: Supra -phys iolog ic doses of Bioti n(B7) may cause false negat saranya resul ts. Not Available [address] [place], [address] 07/26/2023 16:56:29 07/26/19 24 07/26/2023 FREE T4 free T4 1.04 NG/dL 0.76-1 .46 normal Not Available [address] [place], [address] 07/26/2023 16:56:29 02/03/20 24 02/03/2024 TSH TSH 5.76 uIU/m L 0.36-3 .74 high Not Available [address] [place], [address] 02/03/2024 14:18:39 02/03/20 24 02/03/2024 TSH TSH 5.76 uIU/m L 0.36-3 .74 high Not Available [address] [place], [address] 02/03/2024 16:39:13 03/11/20 24 10/01/2021 imagi ng/di agnos tic [...] Available 03/11 22:43:51 03/11/20 24 04/23/2022 MAMMO laura dejon No observ ation record ed. Not Available 03/11 22:43:55 03/11/20 24 03/08/2019 MAMMO laurag No observ ation record ed. Not Available [...] Time Lumbosac ral spondylo sis without myelopat 58094215 Active 2017 Miltilev el degenera tive changes on 2019 Open MRI without spinal stenosis . Good response to RFA 2017 and 2018. Problem Code: M47.817; Problem Code Type: ICD-10; KYAW AHN PA-C [address], [place], [address] , [place] - [facility]. 12:15:39 Mixed hyperlip idemia 170656035 Active 201703/28/20 20 - Comments only - Lynne Ramírez APRN - Elevated TGs, low HDL, acceptab le LDL. Encourag ed addition of healthy fats, reductio n in carbs and sugars, increase in fiber intake. Will recheck in 6 months. Problem Code: E78.2; Problem Code Type: ICD-10; Not Available [facility] 3 04:17:37 Prurigo nodulari s 94389487 Active 201703/05/20 19 - Comments only - Lynne Ramírez APRN - Use clobetas ol cream BID PRN. Problem Code: L28.1; Problem Code Type: ICD-10; Not Available [facility] 3 04:17:37 Generali zed anxiety disorder 36014064 Active 201712/02/19 19 - Comments only - Lynne Ramírez APRN - See above. Problem Code: F41.1; Problem Code Type: ICD-10; Not Available [facility] 3 04:17:37 Major depressi on, single episode 64808639 Active 201705/12/20 22 - Comments only - Lynne Ramírez APRN - Mood improved , enjoying new grandson s. Continue s with regular therapy. Problem Code: F32.9; Problem Code Type: ICD-10; Not Available [facility] 3 04:17:37 Obstruct saranya sleep apnea syndrome 57586230 Active 201711/04/19 22 - Comments only - Lynne Ramírez APRN - Sleep improved with new mask. Problem Code: G47.33; Problem Code Type: ICD-10; Not Available [facility] 3 04:17:38 Hypothyr oidism 81053655 Active 201711/04/19 23 - Comments only - Kyaw Ahn RPA - TSH drawn today. Follows with endocrin ology. Status post radioact saranya iodine treatmen t for thyroid cancer. In her 20s. Problem Code: E03.9; Problem Code Type: ICD-10; Not Available [facility] 3 04:17:38 Body mass index 40+ - severely obese 606064532 Active 201709/29/19 22 - Comments only - Lynne Ramírez APRN - Challeng ing situatio n. Extreme obesity contribu ting to chronic back and joint pain, impairin g mobility . Pt describe s low-carb diet, encourag ed to continue , as well as limit portions . Unable to exercise d/t chronic pain. Problem Code: Z68.44; Problem Code Type: ICD-10; Not Available [facility] 3 04:17:38 Idiopath ic osteoart hritis 386407654 Active 201712/28/19 18 - Comments only - Lynne Ramírez APRN - Pool therapy twice weekly, ambulati on limited. Working towards lowering wt enough to have knee replacem ents. Problem Code: M17.0; Problem Code Type: ICD-10; Not Available [facility] 3 04:17:38 History of malignan t neoplasm of thyroid 253285873 Active 201709/29/19 22 - Comments only - Lynne Ramírez APRN - Followed by [facility] endo. Thyroid panel ordered. Problem Code: Z85.850; Problem Code Type: ICD-10; Not Available [facility] 3 04:17:38 Adult health examinat ion Active 201705/12/20 22 - Comments only - Lynne Ramírez APRN - Flu and covid vaccines given today, UTD with all other immuniza tions. Declines colonosc opy, UTD with mammogra m. Problem Code: Z00.00; Problem Code Type: ICD-10; Not Available [facility] 3 04:17:38 Counseli ng Completed 201701/10/2018 12/28/19 18 - Comments only - Lynne Ramírez APRN - Pt with multiple chronic issues. Mammogra m ordered. Declines colonosc opy, given IFOB. Will need Td this year. No lab results rec'd from previous provider , will obtain from [facility] site. Problem Code: Z71.89; Problem Code Type: ICD-10; Not Available [facility] 3 04:17:38 Aneurysm 064797119 Active 201701/19/20 18 - Comments only - Minerva Jon - Consulte d with neurolog y. Likely too small for surgery or concern. Problem Code: I72.9; Problem Code Type: ICD-10; [address], [place], [address] , [place] - [facility]. 4 11:45:05 Nicotine dependen ce 96023071 Active 201911/04/19 23 - Comments only - Kyaw Ahn RPA - She has been slowly weaning back. Now down to a third of a pack a day. She is motivate d to quit [facility]. Problem Code: F17.200; Problem Code Type: ICD-10; Not Available [facility] 3 04:17:39 Screenin g for malignan t neoplasm of breast Active 2021 Problem Code: Z12.39; Problem Code Type: ICD-10; Not Available [facility] 3 04:17:39 Onychomy cosis due to dermatop hyte 912554696 Active 202111/04/19 22 - Comments only - Lynne Ramírez APRN - Referral to podiatry , per pt request. Problem Code: B35.1; Problem Code Type: ICD-10; Not Available [facility] 3 04:17:39 Dyspnea 736657460 Active 202111/04/19 23 - Comments only - Kyaw Ahn RPA - Recent evaluati on with pulmonol ogy. She had spiromet ry and is schedule d for methacho line challeng e test. She uses her Advair inhaler twice daily routinel y. Occasion al use of rescue inhaler. Asthma as a child. Has follow-u p with pulmonol ogy. Problem Code: R06.02; Problem Code Type: ICD-10; Not Available [facility] 3 04:17:40 Chest pain 31275350 Active 202111/04/19 23 - Comments only - Kyaw Ahn RPA [...] R07.9; Problem Code Type: ICD-10; Not Available [facility] 3 04:17:40 Pain of joint of knee 0730912569 Completed 201809/28/2021 Problem Code: M25.569; Problem Code Type: ICD-10; Not Available [facility] 3 04:17:40 Urgent desire to urinate 77701850 Completed 201809/28/2021 Problem Code: R39.15; Problem Code Type: ICD-10; Not Available [facility] 3 04:17:40 Severe obesity 03306678579 104 Completed 201703/05/2019 Problem Code: E66.01; Problem Code Type: ICD-10; Not Available [facility] 3 04:17:40 Acute upper respirat ory infectio n 06374536 Completed 202105/04/2022 Problem Code: J06.9; Problem Code Type: ICD-10; Not Available [facility] 3 04:17:41 Exposure to sexually transmis sible disorder Completed 201803/05/2019 Problem Code: Z20.2; Problem Code Type: ICD-10; Not Available [facility] 3 04:17:41 Hyperlip idemia 60801220 Completed 201703/23/2023 Problem Code: E78.5; Problem Code Type: ICD-10; Not Available [facility] 3 04:17:41 Screenin g for malignan t neoplasm of colon Completed 201803/28/2020 Problem Code: Z12.11; Problem Code Type: ICD-10; Not Available [facility] 3 04:17:41 Pain in thoracic spine 070627810 Completed 201809/28/2021 Problem Code: M54.9; Problem Code Type: ICD-10; Not Available [facility] 3 04:17:41 Impaired fasting glycemia 648528655 Completed 201708/23/2019 Problem Code: R73.01; Problem Code Type: ICD-10; Not Available [facility] 3 04:17:41 Urinary tract infectio us disease 45166750 Completed 202009/28/2021 Problem Code: N39.0; Problem Code Type: ICD-10; Not Available [facility] 3 04:17:42 Retentio n of urine 564473450 Completed 201809/28/2021 Problem Code: R33.9; Problem Code Type: ICD-10; Not Available [facility] 3 04:17:42 Altered bowel function 11300137 Completed 201909/28/2021 Problem Code: R19.4; Problem Code Type: ICD-10; Not Available [facility] 3 04:17:42 Chronic kidney disease stage 3 026601470 Completed 201703/05/2019 Not Available [facility] 3 04:17:42 Problem Notes None recorded. Procedures Surgical History None recorded. Imaging Results Imaging Date Name Status LastModified by Organ [facility] Details LastModified Time 10/01/2021 imaging/diagno stic result completed Information not available 03/11/2024 22:43:09 11/24/2021 imaging/diagno stic result completed Information not available 03/11/2024 22:43:11 01/25/2019 US, renal completed Information no t available 03/11/2024 22:43:13 04/08/2021 XR, ankle completed Information no t available 03/11/2024 22:43:14 2019 imaging/diagno stic result completed Information not available 03/11/2024 22:43:16 02/15/2019 imaging/diagno stic result completed Information not available 03/11/2024 22:43:18 05/15/2019 imaging/diagno stic result completed Information not available 03/11/2024 22:43:50 10/01/2021 imaging/diagno stic result completed Information not available 03/11/2024 22:43:51 04/23/2022 MAMMO, screening completed Information not available 03/11/2024 22:43:55 03/08/2019 MAMMO, screening completed Information not available 03/11/2024 22:43:57 01/18/2019 MRI, lumbar spine completed Information not available 03/11/2024 22:43:58 11/12/2022 imaging/diagno stic result completed Information not available 03/11/2024 22:44:43 12/21/2021 imaging/diagno stic result completed Information not available 03/11/2024 22:44:59 05/13/2019 imaging/diagno stic result completed Information not available 03/11/2024 22:45:17 04/05/2023 imaging/diagno stic result completed Information not available 03/11/2024 22:45:27 09/30/2021 imaging/diagno stic result completed Information not available 03/11/2024 22:45:30 09/30/2021 imaging/diagno stic result completed Information not available 03/11/2024 22:45:31 01/14/2022 imaging/diagno stic result completed Information not available 03/11/2024 22:45:35 12/21/2021 imaging/diagno stic result completed Information not available 03/11/2024 22:45:46 12/21/2021 imaging/diagno stic result completed Information not available 03/11/2024 22:45:47 11/24/2021 imaging/diagno stic result completed Information not available 03/11/2024 22:45:50 Procedure Notes None recorded. Medical Equipment None Reported. Allergies Allergen ID Allergen Name Allergen Category Reaction Reaction Severity Criticality Documentation Date Start Date Code Code System Note Provider Name and Address Organization Details Recorded Time 38674 diclofena c medicatio n Not available Not available Not available 05/06/20232017 3355 RxNorm Ines Cruz RN [facility], [place] - [facility] 10:08:56 92975 gabapenti n medicatio n other mild low 11/04/2023 83853 RxNorm Fatig ue Ines Cruz RN null, [place] - [facility] 10:09:34 Medications Name Sig Start Date Stop [...] INHALATI ONS TWICE A DAY 11/03 completed pulmonchon anderson. Patient state she no longer [...] Updated DateTime 4 166.37 cm 65.4 kg/m2 069621. 07 g 97.7 [degF] 20 /min 84 /min 110 mm[Hg] 88 mm[Hg] SABAS MCLAIN RN [facility] 4 13:05:45 Date Recorded Body height Body mass index (BMI) Body weight Body temperature Heart rate Systolic blood pressure Diastolic blood pressure Provider Name and Address Organization Details Last Updated DateTime 4 166.37 cm 63.5 kg/m2 783047. 4 g 98.1 [degF] 72 /min 123 mm[Hg] 82 mm[Hg] Ines Cruz RN [facility] 4 10:12:12 Date Recorded Body height Body mass index (BMI) Body weight Body temperature Respiratory rate Heart rate Systolic blood pressure Diastolic blood pressure Provider Name and Address Organization Details Last Updated DateTime 4 166.37 cm 63.4 kg/m2 338234. 25 g 98.2 [degF] 14 /min 71 /min 116 mm[Hg] 80 mm[Hg] ARTUR MALCOLM RN [facility] 4 11:49:34 Social History Question Answer Notes LastModified by Organization Details LastModified Time Tobacco Smoking Status Current Every Day Smoker SABAS MCLAIN RN [facility], [facility] 07/01/2023 13:34:40 Do You Have An [...] Do You Have A Medical Power Of Utility Gelatin Maker? No Information not available 07/01/2023 What Was [...] Mother Family history of acute medical disorder [place] linpui.70 Not available 2022 03:50:20 Mother Family [...] split virus, quadrivalent, PF 07/01/2023 completed KYAW AHN PA-C [address], [place], [address], [facility] 07/01/2023 15:11:05 COVID-19, mRNA, LNP-S, PF, troy-sucrose, 30 mcg/0.3 mL 07/01/[address], [place], [address], [facility] 07/01/2023 15:11:05 Tdap 12/01/2018 completed Not Available [facility] 03:55:02 Td(adult) unspecified formulation 12/31/2007 completed Not Available [facility] 05/06/2023 03:55:03 Influenza, split virus, quadrivalent, PF 05/04/2022 completed Not Available [facility] 05/06/2023 03:55:03 COVID-19, mRNA, LNP-S, PF, 100 mcg/0.5mL dose or 50 mcg/0.25mL dose 09/22/2021 completed Not Available [facility] 05/06/2023 03:55:03 COVID-19, mRNA, LNP-S, PF, 100 mcg/0.5mL dose or 50 mcg/0.25mL dose 10/19/2021 completed Not Available [facility] 05/06/2023 03:55:03 COVID-19, mRNA, LNP-S, bivalent, PF, 30 mcg/0.3 mL dose 05/04/2022 completed Not Available [facility] 05/06/20 03:55:03 pneumococcal polysaccharide PPV23 01/20/2010 completed Not Available [facility] 2022 03:55:03 Hep B, unspecified formulation 10/07/2015 completed Not Available [facility] 05/06/2023 03:55:03 Hep B, unspecified formulation 03/12/2016 completed Not Available [facility] 05/06/2023 03:55:04 Past Encounters Encounter ID Performer Location Encounter Start Date Encounter Closed Date Diagnosis/Indication Diagnosis SNOMED-CT Code Diagnosis ICD10 Code [id number] KYAW AHN PA-C [address] [place] [address] 07/01/2023 12:55:32 07/01/2023 13:59:26 Administration of influenza vaccine 01035139 Z23 Administra tion of SARS-CoV-2 vaccine 5739570688 Z23 Body mass index 40+ - severely obese 664401252 Z68.44 Dyspnea 700131507 R06.00 Generalize d anxiety disorder 37991513 F41.1 History of malignant neoplasm of thyroid 695806747 Z85.850 Mixed hyperlipidemia 267 919107 E78.2 Nicotine dependence 5629 4008 F17.200 Screening for malignant neoplasm of breast 118186417 Z12.39 Screening for malignant neoplasm of colon 084631521 Z12.11 Pain of ri ght knee joint 1909273852 22653 M25.561 Lumbosacra l spondylosis without myelopathy 28545351 M47.817 Adult heal th examination 610505608 Z00.00 [id number] Ines Cruz RN [facility] [address] [place] [address] 07/26/2023 10:23:14 07/26/2023 10:32:41 Mixed hyperlipidemia 601787465 E78.2 History of malignant neoplasm of thyroid 535365784 Z85.213 [id number] KYAW AHN PA-C [facility] [address] [place] [address] 11/04/2023 09:54:10 11/04/2023 12:15:16 Dyspnea 744224413 R06.00 Hypothyroidism 20548423 E03.9 Generalize d anxiety disorder 90283594 F41.1 Nicotine dependence 5629 4008 F17.200 Body mass index 40+ - severely obese 077072428 Z68.44 Lumbosacra l spondylosis without myelopathy 71114637 M47.704 [id number] KYAW AHN PA-C [facility] [address] [place] [address] 03/02/2024 11:37:02 03/02/2024 14:27:49 Body mass index 40+ - severely obese 910970868 Z68.44 Screening for malignant neoplasm of breast 006697770 Z12.39 Nicotine dependence 5629 4008 F17.200 Generalize d anxiety disorder 57656874 F41.1 Hypothyroidism [id number] E03.9 [id number] KYAW AHN PA-C [facility] [address] [place] [address] 04/18/2024 10:59:26 04/18/2024 11:44:53 Generalized anxiety disorder [id number] F41.1 Health Concerns Section Related Observation LastModified by Organization Detai ls LastModified Time None Recorded Concern Status LastModified by Organization Details LastModified Time None Recorded Advance Directives Directive N: Payers Encounter Date Sequence Insurance Name Policy Number Policy [place] Covered Member ID Hull Member ID Guarantor Name 07/01/2023 2 [facility] (MEDICAID) Vanesa Marrero [id number] Vanesa Marrero 07/01/2023 1 [employer] (MEDICARE REPLACEMENT HMO) Vanesa F Janes [id number] Vanesa F Janes 07/26/2023 2 [facility] (MEDICAID) Vanesa F Janes [id number] Vanesa F Janes 07/26/2023 1 [employer] (MEDICARE REPLACEMENT HMO) Vanesa F Janes [id number] Vanesa F Janes 11/04/2023 2 [facility] (MEDICAID) Vanesa F Janes [id number] Vanesa F Janse 11/04/2023 1 [employer] (MEDICARE REPLACEMENT HMO) Vanesa F Janes [id number] Vanesa F Janes 03/02/2024 2 [facility] (MEDICAID) Vanesa F Janes [id number] Vanesa F Janes 03/02/2024 1 [employer] (MEDICARE REPLACEMENT HMO) Vanesa F Janes [id number] Vanesa F Janes 04/18/2024 2 [facility] (MEDICAID) Vanesa F Janes [id number] Vanesa F Janes 04/18/2024 1 [employer] (MEDICARE REPLACEMENT HMO) Vanesa F Janes [id number] Vanesa F Janes Notes Date Note Type [...] change in her medications. [address], [place], [address], [facility]. 07/01/2023 15:31:15 11/04/2023 text/html HPI Notes: Vibha [...] is bothering her more. [address], [place], [address], [facility]. 11/04/2023 12:17:19 03/02/2024 text/html HPI Notes: Vibha barger is [...] looking for recommendations with psychiatry. Currently seeing [facility] but does feel the fit is good. [address], [place], [address], [facility]. 03/02/2024 12:15:33 04/18/2024 text/html HPI Notes: Vibha barger would like to discuss referral to in-house psychiatry. Her daughter has met with Sandhya Brown and speaks highly of her. She is currently seeing psychiatry at [facility]. She would like to change. [address], [place], [address], [facility]. 04/18/2024 11:04:46 OBGyn Episode No OBEpisode recorded.
--- OUTSIDE RECORDS SUMMARY | 2024-04-20 00:21 | XMS_ITS | Encounter Summary ---
Author Organization [facility] Address [address] [place] [address] Care Team Providers Care Soil Conservationist Name Role Phone Lynne Ramírez JAVID Primary Care Provider [phone] Mariaelena Garces APPLICATION ENGINEER Unavailable [phone] Reason for Visit * Reason Comments Hypothyroidism Encounter Details Date Type Department Care Team (Latest Contact Info) Description 08/02/2023 15:00 EST Telemedicine [facility] [place] [address] [place] [address] Brenna Carmona MD [address] [place] [address] [place] [address] Postprocedural hypothyroidism (Primary Dx) Social History [...] Home Patient location state: Visit Location State: [place] The location of the provider: Office Provider location state: Visit Location State: [place] The following people and their roles were [...] 0.5 Tablets by mouth 2 times daily. Vrttq-4-UVG-EPA-Fish Oil 1,200 (144-216) mg capsule Take 2 [...] Imaging Results: Lab Results Component Value Date [id number] 10/19/2021 Assessment and Plan: Hypothyroidism: clinically euthyroid but biochemically mildly hypothyroid based on reported TSH. Will try to track don the results to decide on dose adjustment if needed. RTC 6 months documented in this encounter Plan of Treatment Upcoming Encounters Date Type Department Care Team (Late st Contact Info) Description 08/07/2024 10:45 EST Telemedicine [facility] Endocrinology [address] [address]12[address] Ricky Wei MD [address] [facility] [address] [place] [address] documented as of this encounter Visit Diagnoses [...] times daily. 08/02/2023 added in this encounter Orders Lab Orders Without Results Count Last Ordered D ate First Ordered Date TSH 1 07/27/2023 documented in this encounter Care Teams Soil Conservationist Relationship Specialty Start Date End Date Lynne Ramírez FNP [facility] [place] [address] PCP - General 03/12/19 09/04/23 Mariaelena Garces NP [address] [place] [address] [place] [address] Nurse Practitioner Endocrinology, Diabetes and Metabolism 07/20/21 documented as of this encounter
--- OUTSIDE RECORDS SUMMARY | 2024-04-20 00:21 | XMS_ITS | Continuity of Care Document ---
Author Organization [place] [facility] [place] [address] Assessment Encounter Date Assessment Date Assessment LastModified by Organization Details LastModified Time 04/18/2024 04/18/2024 The total time devoted to today's encounter, including both the tzta-pv-xqqk time with the patient and/or family/caregi imtiaz and qqx-lnac-ms-f sebastian time I personally spent is 20 minutes. [email or web address] Not available 04/18/2024 11:04:30 Plan of Treatment Reminders Order Date Submit Date Provider Last Modified By Organization Details Last Modified Time Details Appointments Nurse Visit 20 2023 01:20P [facility] Nursing Staff Not available Not available Not available Annual Wellness Exam 40 2024 10:30A M KYAW LOPEZ Not available Not available Not available Lab None recorded . Referral psychiat rist referral - currentl y followin g with [facility] in [place]. Would like to switch. 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 Surgeries None recorded . Imaging None recorded . Medication Orders None recorded . Patient TargetsNo targets recorded. Patient InstructionsNo instructions recorded. Reason for Referral Physical Therapist Referral for Pain of right knee joint Right knee pain with Tightness of hamstring attachment at knee. Morbid obesity Referring Physician: [facility], Encounter Date: 07/01/2023 Home Health Referral [...] anxiety disorder currently following with [facility] in [place]. Would like to switch. Generalized anxiety Referring Physician: Family Cintia Menjivar, Encounter Date: 04/18/2024 Problems Name Problem SNOMED Code Status Onset Date Resolution Date Notes Provider Name and Address Organization Details Recorded Time Lumbosac ral spondylo sis without myelopat hy [id number] Active 2017 Miltile el degenera tive changes on 2019 Open MRI without spinal stenosis . Good response to RFA 2017 and 2019. Problem Code: M47.817; Problem Code Type: ICD-10; [address], [place], [address] , [facility]. 4 12:15:39 Mixed hyperlip idemia 883009168 Active 201703/28/20 20 - Comments only - Lynne Ramírez NONPROFIT FUNDRAISER - Elevated TGs, low HDL, acceptab le LDL. Encourag ed addition of healthy fats, reductio n in carbs and sugars, increase in fiber intake. Will recheck in 6 months. Problem Code: E78.2; Problem Code Type: ICD-10; Not Available [facility] 3 04:17:37 Prurigo nodulari s 32859628 Active 201703/05/20 19 - Comments only - Lynne Ramírez APRN - Use clobetas ol cream BID PRN. Problem Code: L28.1; Problem Code Type: ICD-10; Not Available [facility] 3 04:17:37 Generali zed anxiety disorder 38379963 Active 201712/02/19 19 - Comments only - Lynne Ramírez APRN - See above. Problem Code: F41.1; Problem Code Type: ICD-10; Not Available [facility] 3 04:17:37 Major depressi on, single episode 51795716 Active 201705/12/20 22 - Comments only - Lynne Ramírez APRN - Mood improved , enjoying new grandson s. Continue s with regular therapy. Problem Code: F32.9; Problem Code Type: ICD-10; Not Available [facility] 3 04:17:37 Obstruct ming sleep apnea syndrome 00203523 Active 201711/04/19 22 - Comments only - Lynne Ramírez APRN - Sleep improved with new mask. Problem Code: G47.33; Problem Code Type: ICD-10; Not Available [facility] 3 04:17:38 Hypothyr oidism 62140758 Active 201711/04/19 23 - Comments only - Kyaw Lopez RPA - TSH drawn today. Follows with endocrin ology. Status post radioact ming iodine treatmen t for thyroid cancer. In her 20s. Problem Code: E03.9; Problem Code Type: ICD-10; Not Available [facility] 3 04:17:38 Body mass index 40+ - severely obese 036226639 Active 201709/29/19 22 - Comments only - Lynne Ramírez APRN - Challeng ing situatio n. Extreme obesity contribu ting to chronic back and joint pain, impairin g mobility . Pt describe s low-carb diet, encourag ed to continue , as well as limit portions . Unable to exercise d/t chronic pain. Problem Code: Z68.44; Problem Code Type: ICD-10; Not Available [facility] 3 04:17:38 Idiopath ic osteoart hritis 141637099 Active 201712/28/19 18 - Comments only - Lynne Ramírez APRN - Pool therapy twice weekly, ambulati on limited. Working towards lowering wt enough to have knee replacem ents. Problem Code: M17.0; Problem Code Type: ICD-10; Not Available [facility] 3 04:17:38 History of malignan t neoplasm of thyroid 082719714 Active 201709/29/19 22 - Comments only - Lynne Ramírez APRN - Followed by [facility] endo. Thyroid panel ordered. Problem Code: Z85.850; Problem Code Type: ICD-10; Not Available [facility] 3 04:17:38 Adult health examinat ion Active 201705/12/20 22 - Comments only - Lynne Ramírez APRN - Flu and covid vaccines given today, UTD with all other immuniza tions. Declines colonosc opy, UTD with mammogra m. Problem Code: Z00.00; Problem Code Type: ICD-10; Not Available [facility] 3 04:17:38 Counseli ng Completed 201701/10/2018 12/28/19 18 - Comments only - Lynne Ramírez APRN - Pt with multiple chronic issues. Mammogra m ordered. Declines colonosc opy, given IFOB. Will need Td this year. No lab results rec'd from previous provider , will obtain from [facility] site. Problem Code: Z71.89; Problem Code Type: ICD-10; Not Available [facility] 3 04:17:38 Aneurysm 892127819 Active 201701/19/20 18 - Comments only - Minerva Jon - Consulte d with neurolog y. Likely too small for surgery or concern. Problem Code: I72.9; Problem Code Type: ICD-10; KYAW LOPEZ PA-C [facility] [address], [place], [address] , [facility]. 4 11:45:05 Nicotine dependen ce 29338526 Active 201911/04/19 23 - Comments only - Kyaw Lopez RPA - She has been slowly weaning back. Now down to a third of a pack a day. She is motivate d to quit [facility]. Problem Code: F17.200; Problem Code Type: ICD-10; Not Available [facility] 3 04:17:39 Screenin g for malignan t neoplasm of breast Active 2021 Problem Code: Z12.39; Problem Code Type: ICD-10; Not Available [facility] 3 04:17:39 Onychomy cosis due to dermatop hyte 039364415 Active 202111/04/19 22 - Comments only - Lynne Ramírez APRN - Referral to podiatry , per pt request. Problem Code: B35.1; Problem Code Type: ICD-10; Not Available [facility] 3 04:17:39 Dyspnea 188845179 Active 202111/04/19 23 - Comments only - [...] R06.02; Problem Code Type: ICD-10; Not Available [facility] 3 04:17:40 Chest pain 53537669 Active 202111/04/19 23 - Comments only - [...] R07.9; Problem Code Type: ICD-10; Not Available [facility] 3 04:17:40 Pain of joint of knee 9223427557 Completed 201809/28/2021 Problem Code: M25.569; Problem Code Type: ICD-10; Not Available [facility] 3 04:17:40 Urgent desire to urinate 48580421 Completed 201809/28/2021 Problem Code: R39.15; Problem Code Type: ICD-10; Not Available [facility] 3 04:17:40 Severe obesity 03589313328 104 Completed 201703/05/2019 Problem Code: E66.01; Problem Code Type: ICD-10; Not Available [facility] 3 04:17:40 Acute upper respirat ory infectio n 35656308 Completed 202105/04/2022 Problem Code: J06.9; Problem Code Type: ICD-10; Not Available [facility] 3 04:17:41 Exposure to sexually transmis sible disorder Completed 201803/05/2019 Problem Code: Z20.2; Problem Code Type: ICD-10; Not Available [facility] 3 04:17:41 Hyperlip idemia 58963964 Completed 201703/23/2023 Problem Code: E78.5; Problem Code Type: ICD-10; Not Available [facility] 3 04:17:41 Screenin g for malignan t neoplasm of colon Completed 201803/28/2020 Problem Code: Z12.11; Problem Code Type: ICD-10; Not Available [facility] 3 04:17:41 Pain in thoracic spine 573987399 Completed 201809/28/2021 Problem Code: M54.9; Problem Code Type: ICD-10; Not Available [facility] 3 04:17:41 Impaired fasting glycemia 908716890 Completed 201708/23/2019 Problem Code: R73.01; Problem Code Type: ICD-10; Not Available [facility] 3 04:17:41 Urinary tract infectio us disease 17771526 Completed 202009/28/2021 Problem Code: N39.0; Problem Code Type: ICD-10; Not Available [facility] 3 04:17:42 Retentio n of urine 968666276 Completed 201809/28/2021 Problem Code: R33.9; Problem Code Type: ICD-10; Not Available [facility] 3 04:17:42 Altered bowel function 88742524 Completed 201909/28/2021 Problem Code: R19.4; Problem Code Type: ICD-10; Not Available [facility] 3 04:17:42 Chronic kidney disease stage 3 087266314 Completed 201703/05/2019 Not Available [facility] 3 04:17:42 Problem Notes None recorded. Medical Equipment None Reported. Allergies Allergen ID Allergen Name Allergen Category Reaction Reaction Severity Criticality Documentation Date Start Date Code Code System Note Provider Name and Address Organization Details Recorded Time 10283 diclofena c medicatio n Not available Not available Not available 05/06/20232017 3355 [facility] 4 10:08:56 89048 gabapenti n medicatio n other mild low 11/04/2023 09706 RxNorm Fatig ue Ines Cruz RN [facility] 4 10:09:34 Medications Name Sig Start Date [...] Not Available Not Available Not Available Vitals None Recorded Social History Question Answer Notes LastModified by Organization Details LastModified Time Tobacco Smoking Status Current Every Day Smoker SABAS MCLAIN RN [facility], [place] - [facility] 07/01/2023 13:34:40 Do You Have An [...] Do You Have A Medical Power Of Pipeline Welder? No Information not available 07/01/2023 What Was [...] Mother Family history of acute medical disorder [place] [email or web address] Not available 2022 03:50:20 Mother Family [...] quadrivalent, PF 07/01/[address], [place], [address], [facility] 07/01/2023 15:11:05 COVID-19, mRNA, LNP-S, PF, troy-sucrose, 30 mcg/0.3 mL 07/01/[address], [place], [address], [facility] 07/01/2023 15:11:05 Tdap 12/01/2018 completed Not Available [facility] 03:55:02 Td(adult) unspecified formulation 12/31/2007 completed Not Available [facility] 05/06/2023 03:55:03 Influenza, split virus, quadrivalent, PF 05/04/2022 completed Not Available [facility] 05/06/2023 03:55:03 COVID-19, mRNA, LNP-S, PF, 100 mcg/0.5mL dose or 50 mcg/0.25mL dose 09/22/2021 completed Not Available [facility] 05/06/2023 03:55:03 COVID-19, mRNA, LNP-S, PF, 100 mcg/0.5mL dose or 50 mcg/0.25mL dose 10/19/2021 completed Not Available [facility] 05/06/2023 03:55:03 COVID-19, mRNA, LNP-S, bivalent, PF, 30 mcg/0.3 mL dose 05/04/2022 completed Not Available [facility] 05/06/20 03:55:03 pneumococcal polysaccharide PPV23 01/20/2010 completed Not Available [facility] 2022 03:55:03 Hep B, unspecified formulation 10/07/2015 completed Not Available [facility] 05/06/2023 03:55:03 Hep B, unspecified formulation 03/12/2016 completed Not Available [facility] 05/06/2023 03:55:04 Past Encounters Encounter ID Performer Location Encounter Start Date Encounter Closed Date Diagnosis/Indication Diagnosis SNOMED-CT Code Diagnosis ICD10 Code [id number] KYAW LOPEZ PA-C [address] [place] [address] 04/18/2024 10:59:26 04/18/2024 11:44:53 Generalized anxiety disorder [id number] F41.1 Health Concerns Section Related Observation LastModified by Organization Detai ls LastModified Time None Recorded Concern Status LastModified by Organization Details LastModified Time None Recorded Payers Encounter Date Sequence Insurance Name Policy Number Policy [place] Covered Member ID [place] Member ID Guarantor Name 04/18/2024 2 [facility] (MEDICAID) Vanesa Mcmahans [id number] Vanesa Marrero 04/18/2024 1 [employer] (MEDICARE REPLACEMENT HMO) Vanesa Mcmahans [id number] Vanesa Marrero Notes Date Note Type Note Provider Name and Address Organization Details Recorded Time 04/18/2024 text/html HPI Notes: Vanesa would like to discuss referral to in-house psychiatry. Her daughter has met with Sandhya Brown and speaks highly of her. She is currently seeing psychiatry at [facility]. She would like to change. KYAW LOPEZ PA-C [address], [place], [address], [facility]. 04/18/2024 11:04:46 OBGyn Episode No OBEpisode recorded.
--- OUTSIDE RECORDS SUMMARY | 2024-04-20 00:21 | XMS_ITS | Encounter Summary ---
Author Organization [facility] Address [address] [place] [address] Care Team Providers Care Stonemason Helper Name Role Phone Mariaelena Garces PR INTERN Unavailable [phone] Kyaw Ahn RPA Primary Care Provider [phone] Encounter Details Date Type Department Care Team (Late st Contact Info) Description 02/07/2024 Orders Only [facility] Endocrinology [address] [place], [place] [id number] Brenna Carmona MD [employer] [address] [place] [address] Social History Tobacco Use Types [...] Refills Start Date End Da te SYNTHROID 50 mcg tablet Take 1 Tablet by mouth daily. Take one tablet every day along with the 200 mcg tab (total daily dose 250 mcg) 90 Tablet 3 02/07/2024 documented in this encounter Plan of Treatment Upcoming Encounters Date Type Department Care Team (Late st Contact Info) Description 08/07/2024 10:45 EST Telemedicine [facility] Endocrinology [address] [place], [place] [address] Ricky Wei MD [address] [place] [phone] documented as of this encounter Visit Diagnoses Not on filedocumented in this encounter Discontinued Medications Medication Sig Discontinue Reason Start Date End Da te levothyroxine (SYNTHROID) 25 mcg tablet Take one extra tablet of 25 mcg three times a week (she is to continue with 200 mcg every day) 12/26/2023 02/07/2024 documented as of this encounter Care Teams Stonemason Helper Relationship Specialty Start Date End Date Kyaw Ahn RPA [address] [place] [address] PCP - General Family Medicine - Primary Care 09/05/23 Mariaelena Garces NP [address] [place] [address] Nurse Practitioner Endocrinology, Diabetes and Metabolism 07/20/21 documented as of this encounter
--- OUTSIDE RECORDS SUMMARY | 2024-04-20 00:21 | XMS_ITS | Encounter Summary ---
Author Organization [facility] Address [address] [place] [address] Care Team Providers Care Hand Tool Lapper Name Role Phone Lynne Ramírez JAVID Primary Care Provider [phone] Mariaelena Garces BALANCE WEIGHER Unavailable [phone] Reason for Visit * Reason Onset Date Comments Medications Refill 12/16/2021 Encounter Details Date Type Department Care Team (Late st Contact Info) Description 12/16/2021 Refill [facility] Endocrinology [address] [place] [address] Charlene Ha RN Medications Refill Social History [...] [facility] Endocrinology [address] [place], [place] [phone] Ricky Wei MD [address] [place] [address] documented as of this encounter Visit Diagnoses Not on filedocumented in this encounter Discontinued Medications Medication Sig Discontinue Reason Start Date End Da te levothyroxine (SYNTHROID) 200 mcg tablet Take 1 Tablet by mouth daily. Branded name necessary Reorder 03/23/2021 12/16/2021 liothyronine (CYTOMEL) 5 mcg tablet Take 1 tablet Tuesday, Tue, Tuesday. Reorder 09/25/2021 12/16/2021 documented as of this encounter Care Teams Hand Tool Lapper Relationship Specialty Start Date End Date Lynne Ramí[place] [address] PCP - General 03/12/19 09/04/23 Mariaelena Garces NP [address] [place], [place] [phone] Nurse Practitioner Endocrinology, Diabetes and Metabolism 07/20/21 documented as of this encounter
--- OUTSIDE RECORDS SUMMARY | 2024-04-20 00:21 | XMS_ITS | Referral Summary ---
Author Organization [facility] Address [address] [place] [address] Care Team Providers Care Outside Event Sales Specialist Name Role Phone Mariaelena Garces NP Unavailable [phone] Kyaw Ahn RPA Primary Care Provider [phone] Encounters Date Type Department Care Team Description 02/07/2024 Orders Only [facility] Endocrinology [address] [place] [address] Brenna Carmona MD 02/07/2024 12:25 EDT Phlebotomy Only [facility] - Outpatient Phlebotomy Drawing [address] [place] [address] Lab, [facility] Op Phlebotomy Postprocedural hypothyroidism; History of thyroid cancer 02/07/2024 11:30 EDT Office Visit [facility] Endocrinology [address] [place] [address] Brenna Carmona MD Postprocedural hypothyroidism (Primary Dx); History of thyroid cancer from Last 3 Months Allergies Active Allergy [...] ORAL) Take 1 Tab by mouth. Active Grssc-6-HNF-EPA-Fish Oil 1,200 (144-216) mg capsule Take 2 [...] 04/22/2020 Liver lesion 04/22/2020 Fatigue 04/22/2020 Aneurysm (HCC-CMS) 04/22/2020 History of thyroid cancer 04/22/2020 Stage 3 chronic kidney disease (HCC-CMS) 017 Myofascial pain 09/07/2016 NSAID long-term use 09/07/2016 IFG (impaired fasting glucose) 11/12/2015 Hyperlipidemia, unspecified 11/12/2015 Prurigo nodularis 10/03/2015 History of nicotine dependence 03/21/2014 Pain in joint, lower leg 03/21/2014 Lumbosacral spondylosis without myelopathy 11/21 Spondylosis of lumbar spine 10/10/2013 Mechanical low back pain 09/12/2013 Sleep apnea 08/23/2013 Morbid obesity ([facility]) 08/23/2013 Depression 08/23/2013 Bilateral knee pain 08/23/2013 [...] Body Mass Index 62.94 02/07/2024 1133 EDT Functional Status Functional Status Response Date of [...] Contact Info) Description 08/07/2024 10:45 EST Telemedicine [facility] Endocrinology [address] [place], [place] [id number] Ricky Wei MD 130 [facility] [address] [place] [phone] Procedures Procedure Name Priority Date/Time Associated Diagnosis [...] S <1.8 <1.8 IU/mL 02/08/2024 19:55 EDT [facility] Thyroglobulin, Tumor Marker <0.1 ng/mL 02/08/2024 19:55 EDT [facility] Comment: REFERENCE VALUE Athyrotic <0.1 Intact Thyroid <=33 Thyroglobulin Interpretation SEE NOTE 02/08/2024 19:55 EDT [facility] Comment: Thyroglobulin (Tg) levels must be interpreted [...] testing methods are immunoenzymatic assays manufactured by [employer] and performed on the ZEALER DXI 800. Values obtained from different assay methods or kits may be different and cannot be used interchangeably. The results cannot be interpreted as absolute evidence for the presence or absence of malignant disease. Test Performed by: [address] [address] Machine Binder Stripper: Hardik Simon Ph.D.; CLIA# [id number] Blood VENOUS BLOOD / Unknown Venipuncture / Unknown 02/07/2024 12:29 EDT 02/07/2024 13:49 EDT Brenna Griffin MD CHEMISTRY & BL OOD GAS ORDERABLES [facility] [address] [place] [address] * (ABNORMAL) THYROID CASCADE (02/07/2024 12:29 EDT) TSH 7.38(H) 0.47 - 4.68 mIU/L 02/07/2024 14:49 EDT [facility] Blood VENOUS BLOOD / Unknown Venipuncture / Unknown 02/07/2024 12:29 EDT 02/07/2024 13:49 EDT Narrative [facility] - 02/07/2024 14:49 EDT NOTE: The results of this assay can be falsely lowered due to the consumption of Biotin. Brenna Griffin MD CHEMISTRY & BL OOD GAS ORDERABLES [facility] [address] [place] [address] * T4 FREE (02/07/2024 12:29 EDT) Pathologist [facility] T4, Free 1.1 0.8 - 2.2 ng/dL 02/07/2024 15:16 EDT [facility] Blood VENOUS BLOOD / Unknown Venipuncture / Unknown 02/07/2024 12:29 EDT 02/07/2024 13:49 EDT Brenna Griffin MD CHEMISTRY & BL OOD GAS ORDERABLES [facility] [address] [place] [address] from Last 3 Months Janes, Vanesa F Personal/Family Self 1965 [address] [place] [address] Janes, Vanesa F Personal/Family Self 1965 [address] [place] [place] [address] Janes, Vanesa F Personal/Family Self 1965 [address] [facility] [place] [address] Care Teams Outside Event Sales Specialist Relationship Specialty Start Date End Date Kyaw Ahn RPA [address] [place] [address] PCP - General Family Medicine - Primary Care 09/05/23 Mariaelena Garces NP [address] [place] [phone] Nurse Practitioner Endocrinology, Diabetes and Metabolism 07/20/21
--- OUTSIDE RECORDS SUMMARY | 2024-04-20 00:21 | XMS_ITS | Encounter Summary ---
Author Organization [facility] Address [address] [place] [address] Care Team Providers Care Immersion Metalcleaner Name Role Phone Mariaelena Garces HOTEL STAFF MEMBER Unavailable [phone] Kyaw Ahn RPA Primary Care Provider [phone] Reason for Visit * Reason Comments Follow-up Hypothyroidism Encounter Details Date Type Department Care Team (Latest Contact Info) Description 02/07/2024 11:[address] [facility] Endocrinology [address] [place] [address] Brenna Carmona MD [address] [place] [address] [place] [phone] Postprocedural hypothyroidism (Primary Dx); History of thyroid cancer Social [...] Body Mass Index 62.94 02/07/2024 1133 EDT documented in this encounter Functional Status [...] as of this encounter Progress Notes * Dipti Burkett RN - 02/07/2024 1130 EDT Here for follow up, is accompanied by another adult female. Arrived in wheelchair. * Brenna Carmona MD - 02/07/2024 1130 EDT CC: Ms. Vanesa Marrero is a 58 y.o. female, who comes today for follow-up of hypothyroidism and history of thyroid cancer HPI: -Hypothyroidism diagnosed at age 24 when a thyroid nodule was found on PE -Thyroid cancer: Had Subtotal Thyroidectomy and HODGE ~1989. No details available. 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 She does not know the size of the tumor. No data on Tg but knows that it was not 0. She is currently on brand Synthroid 200 mcg plus 25 three days a week. She is tolerating it well and feels more tired the day that she does not take it. Her weight has been stable ~ 387 (lost from 424) on Naltrexone and Welbutrin. In the past did not tolerate 212.5 mcg of T4 or Cytomel. No changes in bowel movement (constipation alternating with loose stools). No changes in sleep pattern. No coldintolerance. Has had hot flashes for 2 years. No palpitations. Past Medical History/Problem List: Patient Active Problem [...] lumbar spine Stage 3 chronic kidney disease ([facility]) Pain in joint, lower leg Postprocedural hypothyroidism [...] 3 times daily as needed (for headaches). (Patient not taking: Reported on 02/07/2024) L.acid/L.casei/B.bif/B.ashley/FOS (PROBIOTIC BLEND ORAL) Take by mouth. levothyroxine (SYNTHROID) 25 mcg tablet Take one extra tablet of 25 mcg three times a week (she is to continue with 200 mcg every day) 12 Tablet 3 Magnesium 250 mg tablet Take 2 Caps by mouth daily. (Patient not taking: Reported on 02/07/2024) naltrexone (REVIA) 50 mg tablet Take 0.5 Tablets by mouth 2 times daily. Tgzeo-9-NQD-EPA-Fish Oil 1,200 (144-216) mg capsule Take 2 Caps by mouth. Omeprazole 20 mg tablet,delayed release (DR/EC) Take by mouth daily. Psyllium Husk 0.52 gram capsule Take 4 Tabs by mouth daily. (Patient not taking: Reported on 08/02/2023) SYNTHROID 200 mcg tablet TAKE ONE TABLET BY MOUTH EVERY DAY 90 Tablet 1 VITAMIN D3 25 mcg (1,000 unit) capsule Take 3 Capsules by mouth daily. No current facility-administered medications on file prior to visit. Allergies: Allergies Allergen Reactions Diclofenac Other (See Comments) Kidney failure Nsaids (Non-Steroidal Anti-Inflammatory Drug) Other (See Comments) Kidney failure Gabapentin Other (See Comments) Unsure Physical Exam: Patient Vitals for the past 24 hrs: BP Pulse SpO2 Height Weight 02/07/24 1133 110/78 93 99 % 167 cm (65.75) (!) 175.5 kg (387 lb) Body mass index is 62.94 kg/m??. Weight is reported weight HEENT: no lesions Neck: supple. No LA, no masses. Lungs: CTA Heart RRR no rubs or gallops Extremities: trace edema Lab and Imaging Results: Lab Results Component Value Date [id number] 10/19/2021 Assessment and Plan: - Hypothyroidism: Check Thyroid cascade and adjust dose based on results. Will increase Synthroid to 225 every day if TSH is > 2.5 - History of thyroid cancer: Check Tg for baseline. -Obesity:managed by PCP with naltrexone and Welbutrin. GLP-1 analogs were not approved -Smoking cessation recommended. RTC 6 months documented in this encounter Plan of Treatment Upcoming Encounters Date Type Department Care Team (Late st Contact Info) Description 08/07/2024 10:[address] [facility] Endocrinology [address] [place] [address] Ricky Wei MD [address] [place] [address]-[address] [place] [address] documented as of this encounter Results * THYROGLOBULIN, TUMOR MARKER, S (02/07/2024 12:29 EDT) Thyroglobulin Antibody, S <1.8 <1.8 IU/mL 02/08/2024 19:55 EDT [facility] Thyroglobulin, Tumor Marker <0.1 ng/mL 02/08/2024 19:55 EDT [facility] Comment: REFERENCE VALUE Athyrotic <0.1 Intact Thyroid <=33 Thyroglobulin Interpretation SEE NOTE 02/08/2024 19:55 EDT [facility] Comment: Thyroglobulin (Tg) levels must be [...] testing methods are immunoenzymatic assays manufactured by [employer] and performed on the [employer] DXI 800. Values obtained from different assay methods or kits may be different and cannot be used interchangeably. The results cannot be interpreted as absolute evidence for the presence or absence of malignant disease. Test Performed by: [facility] [place] [id number] [place] [address] Tube Draw Helper: Hardik Simon Ph.D.; CLIA# [id number] Blood VENOUS BLOOD / Unknown Venipuncture / Unknown 02/07/2024 12:29 EDT 02/07/2024 13:49 EDT Brenna Griffin MD CHEMISTRY & BL OOD GAS ORDERABLES [facility] [address] [place] [address] * (ABNORMAL) THYROID CASCADE (02/07/2024 12:29 EDT) TSH 7.38(H) 0.47 - 4.68 mIU/L 02/07/2024 14:49 EDT [facility] Blood VENOUS BLOOD / Unknown Venipuncture / Unknown 02/07/2024 12:29 EDT 02/07/2024 13:49 EDT Narrative [facility] - 02/07/2024 14:49 EDT NOTE: The results of this assay can be falsely lowered due to the consumption of Biotin. Brenna Griffin MD CHEMISTRY & BL OOD GAS ORDERABLES [facility] [address] [place] [address] documented in this encounter Visit Diagnoses Diagnosis Postprocedural hypothyroidism- Primary Postsurgical hypothyroidism History of thyroid cancer Personal history of malignant neoplasm of thyroid documented in this encounter Care Teams Immersion Metalcleaner Relationship Specialty Start Date End Date Kyaw Ahn RPA [address] [place] [address] PCP - General Family Medicine - Primary Care 09/05/23 Mariaelena Garces NP 130 [facility] [address] [place] [address] Nurse Practitioner Endocrinology, Diabetes and Metabolism 07/20/21 documented as of this encounter
--- OUTSIDE RECORDS SUMMARY | 2024-04-20 00:21 | XMS_ITS | Encounter Summary ---
Author Organization [facility] Address [address] [place] [address] Care Team Providers Care Cloth Weaver Name Role Phone Mariaelena Garces OFFICE AUDITOR Unavailable [phone] Kyaw Ahn RPA Primary Care Provider [phone] Encounter Details Date Type Department Care Team (Mario Contact Info) Description 02/07/2024 12:25 EDT Phlebotomy Only [facility] - Outpatient Phlebotomy Drawing [address] [place] [address] Lab, [facility] [place] Postprocedural hypothyroidism; History of thyroid cancer Social History Tobacco [...] Upcoming Encounters Date Type Department Care Team (Mario Contact Info) Description 08/07/2024 10:45 EST Telemedicine [facility] Endocrinology [address] [place] [address] Ricky Wei MD 130 [facility] [address] [place] [phone] documented as of this encounter Procedures Procedure Name Priority Date/Time Associated Diagnosis Comments THYROGLOBULIN, TUMOR MARKER, S Routine 02/07/2024 12:29 EDT Postprocedural hypothyroidism History of thyroid cancer THYROID CASCADE Routine 02/07/2024 12:29 EDT Postprocedural hypothyroidism History of thyroid cancer T4 FREE Today 02/07/2024 12:29 EDT Postprocedural hypothyroidism History of thyroid cancer documented in this encounter Results * T4 FREE (02/07/2024 12:29 EDT) Pathologist [facility] T4, Free 1.1 0.8 - 2.2 ng/dL 02/07/2024 15:16 EDT [facility] Blood VENOUS BLOOD / Unknown Venipuncture / Unknown 02/07/2024 12:29 EDT 02/07/2024 13:49 EDT Brenna Griffin MD CHEMISTRY & BL OOD GAS ORDERABLES [facility] [address] [place] [address] * THYROGLOBULIN, TUMOR MARKER, S (02/07/2024 12:29 EDT) Thyroglobulin Antibody, S <1.8 <1.8 IU/mL 02/08/2024 19:55 EDT [facility] Thyroglobulin, Tumor Marker <0.1 ng/mL 02/08/2024 19:55 EDT [facility] Comment: REFERENCE VALUE Athyrotic <0.1 Intact Thyroid <=33 Thyroglobulin Interpretation SEE NOTE 02/08/2024 19:55 EDT [facility] Comment: Thyroglobulin (Tg) levels must be interpreted [...] testing methods are immunoenzymatic assays manufactured by [employer] and performed on the Oscar DXI 800. Values obtained from different assay methods or kits may be different and cannot be used interchangeably. The results cannot be interpreted as absolute evidence for the presence or absence of malignant disease. Test Performed by: [address] [address] Anti Tank Missileman: Hardik Simon Ph.D.; CLIA# [id number] Blood VENOUS BLOOD / Unknown Venipuncture / Unknown 02/07/2024 12:29 EDT 02/07/2024 13:49 EDT Brenna Griffin MD CHEMISTRY & BL OOD GAS ORDERABLES [facility] [address] [place] [address] * (ABNORMAL) THYROID CASCADE (02/07/2024 12:29 EDT) TSH 7.38(H) 0.47 - 4.68 mIU/L 02/07/2024 14:49 EDT [facility] Blood VENOUS BLOOD / Unknown Venipuncture / Unknown 02/07/2024 12:29 EDT 02/07/2024 13:49 EDT Narrative [facility] - 02/07/2024 14:49 EDT NOTE: The results of this assay can be falsely lowered due to the consumption of Biotin. Brenna Griffin MD CHEMISTRY & BL OOD GAS ORDERABLES [facility] [address] [place] [address] documented in this encounter Visit Diagnoses Diagnosis Postprocedural hypothyroidism Postsurgical hypothyroidism History of thyroid cancer Personal history of malignant neoplasm of thyroid documented in this encounter Care Teams Cloth Weaver Relationship Specialty Start Date End Date Kyaw Ahn RPA [address] [place] [address] PCP - General Family Medicine - Primary Care 09/05/23 Mariaelena Garces NP 130 [facility] [address] [place] [phone] Nurse Practitioner Endocrinology, Diabetes and Metabolism 07/20/21 documented as of this encounter
--- OUTSIDE RECORDS SUMMARY | 2024-04-20 00:22 | XMS_ITS | Encounter Summary ---
Author Organization [facility] [place] [address] Care Team Providers Care Armor Senior Sergeant Name Role Phone Roula Bauman APRN Primary Care Provider [phone] Encounter Details Date Type Department Care Team (Late st Contact Info) Description 09/30/2021 Ancillary Procedure Radiology Library at [facility] [place] [address] Juan Manuel Eldridge MD [facility] [place] [address] Social History Tobacco Use Types Packs/Day Years [...] Abdomen Pelvis (09/30/2021 12:00 AM EDT) Narrative [facility] - 12/21/2021 1:24 PM EDT This exam is auto-finalizing. It's purpose is for storage only. Juan Manuel Eldridge MD IMG FILM LIBRARY ORD ERABLES Performing Organization Address City/State/[facility] Co de Phone Number [place], [place] documented in this encounter Visit Diagnoses Not on filedocumented in this encounter Care Teams Armor Senior Sergeant Relationship Specialty Start Date End Date Roula Bauman, CLINICAL FIELD SPECIALIST [address] [place] [address] PCP - General 11/14/14 documented as of this encounter
--- OUTSIDE RECORDS SUMMARY | 2024-04-20 00:22 | XMS_ITS | Encounter Summary ---
Author Organization [facility] Address [address] [place] [address] Care Team Providers Care Hog Grader Name Role Phone Lynne Ramírez JAVID Primary Care Provider [phone] Mariaelena Garces OFFICE ANALYST Unavailable [phone] Reason for Visit * Reason Comments Thyroid Problem Encounter Details Date Type Department Care Team (Late st Contact Info) Description 07/29/2021 10:00 EST Telemedicine [facility] [place] [address] [place] [address] Brenna Darnell MD 130 [facility] [address] [place] [address] Hypothyroidism, postablative (Primary Dx); History [...] Brenna Pope MD - 07/29/[address] [facility] Video Visit Today's visit was provided through [...] take pills. Not very mobile. Prior hx: [place] has history of follicular thyroid cancer dx [...] Contact Info) Description 08/07/2024 10:45 EST Telemedicine [facility] End[facility]inology [address] [place] [address] Ricky Wei MD 130 [facility] [address] [place] [phone] documented as of this encounter Visit Diagnoses Diagnosis Hypothyroidism, postablative- Primary Other postablative hypothyroidism History of thyroid cancer Personal history of malignant neoplasm of thyroid documented in this encounter Care Teams Hog Grader Relationship Specialty Start Date End Date Lynne Ramírez FNP [facility] [place] [address] PCP - General 03/12/19 09/04/23 Mariaelena Garces NP [address] [address] Nurse Practitioner Endocrinology, Diabetes and Metabolism 07/20/21 documented as of this encounter
--- OUTSIDE RECORDS SUMMARY | 2024-04-20 00:22 | XMS_ITS | Encounter Summary ---
[place] [address] Care Team Providers Care Inspector Floor Name Role Phone LorenzoBhumi JOHN Primary Care Provider [phone] Encounter Details Date Type Department Care Team (Late st Contact Info) Description 12/07/2013 Telephone [place] [phone] Sena Narayan, RN Social History Tobacco Use [...] time) on 6-16-14 (dateof procedure) with their furniture delivery driver. 2. Following instructions left in the [...] on filedocumented in this encounter Care Teams Inspector Floor Relationship Specialty Start Date End Date Bhumi Ventura APRN [address] [place] [address] PCP - General 08/23/13 11/13/14 documented as of this encounter
--- OUTSIDE RECORDS SUMMARY | 2024-04-20 00:22 | XMS_ITS | Encounter Summary ---
[place] [address] Care Team Providers Care Photogrammetrist Name Role Phone Roula Bauman APRN Primary Care Provider [phone] Encounter Details Date Type Department Care Team (Late st Contact Info) Description 01/24/2024 Telephone [place] [phone] Pancho Hart Social History Tobacco Use Types [...] on filedocumented in this encounter Care Teams Photogrammetrist Relationship Specialty Start Date End Date Roula Bauman APRN [address] [place] [address] PCP - General 11/14/14 documented as of this encounter
--- OUTSIDE RECORDS SUMMARY | 2024-04-20 00:22 | XMS_ITS | Encounter Summary ---
Author Organization [facility] Address [address] [place] [address] Care Team Providers Care Paving And Surfacing Labourer Name Role Phone Unavailable Primary Care Provider Unavailabl e Encounter Details Date Type Department Care Team (Late st Contact Info) Description 03/28/2013 Results Only [facility] Laboratory Services - [facility] [place] [place] [address] [place], [place] [phone] Rudy Latif, [address] [facility] [address] [place] [place], [place] [address] Social History Tobacco Use Types Packs/Day Years Used Date Smoking Tobacco: Never Assessed Sex and Gender Information Value Date Recorded Sex Assigned at Not on file Gender Identity Female 06/15/2021 12:28 EST Sexual Orientation Not on file documented as of this encounter Plan of Treatment Upcoming Encounters Date Type Department Care Team (Late st Contact Info) Description 08/07/2024 10:45 EST Telemedicine [facility] End[facility]inology [address] [place] [address] Ricky Wei MD 130 [facility] [address] [place] [phone] documented as of this encounter Procedures Procedure [...] ? VANESA COOPER ? Accession #: ? [id number] ? : ? 1965 (Age: 48) ??F [...] Rudy Latif DO PATHOLOGY ORDER CARLEY NICOL COLLIER [address] [place] [address] documented in this encounter Visit Diagnoses Not on filedocumented in this encounter
--- OUTSIDE RECORDS SUMMARY | 2024-04-20 00:22 | XMS_ITS | Encounter Summary ---
Author Organization [facility] [place] [address] Care Team Providers Care Faculty Physician Name Role Phone Lorenzo Bhumi LOPEZ Primary Care Provider [phone] Reason for Visit * Reason Comments Back Pain Encounter Details Date Type Department Care Team (Latest Contact Info) Description 02/26/2014 10:30 AM EDT Procedure visit [place] [address] Arsen Paul [facility] [place] [address] Lumbosacral spondylosis without myelopathy Discharge Disposition: Home [...] No 2. Patient states they have a regional refrigerated cdl truck driver to transport after procedure? Yes [...] the entire procedure. Arsen Paul DO, MPH [facility]-subspecialty board certification in Pain Medicine Attending Physician-Pain Management CC: Bhumi Lorenzo, BEAN ROASTER [address] [place] [address] documented in this encounter Plan of Treatment [...] the entire procedure. Arsen Paul DO, MPH [facility]-subspecialty board certification in Pain Medicine Attending Physician-Pain Management CC: Bhumi Ventura, BEAN ROASTER [address] [place] [address] Procedure Note Arsen Paul DO - 03/01/2014 [...] CC: Bhumi Ventura APRN [address] [place] [address] Arsen Allen DO PROCEDURE/MINOR SURG ICAL ORDERABLES [...] mg documented in this encounter Care Teams Faculty Physician Relationship Specialty Start Date End Date Bhumi Ventura APRN [address] [place] [address] PCP - General 08/23/13 11/13/14 documented as of this encounter
--- OUTSIDE RECORDS SUMMARY | 2024-04-20 00:22 | XMS_ITS | Encounter Summary ---
Author Organization [facility] Address [address] [place] [address] Care Team Providers Care Digital Operations Analyst Name Role Phone Unknown, Provider MD Primary Care Provider [phone] Encounter Details Date Type Department Care Team (Late st Contact Info) Description 07/04/2013 Results Only [facility] Laboratory Services - [facility] ([facility]) [address] [place] [id number] Devin Hawkins MD [address] [place] [address] [id number] Social History Tobacco Use Types Packs/Day Years Used Date Smoking Tobacco: Never Assessed Sex and Gender Information Value Date Recorded Sex Assigned at Not on file Gender Identity Female 06/15/2021 12:28 EST Sexual Orientation Not on file documented as of this encounter Plan of Treatment Upcoming Encounters Date Type Department Care Team (Late st Contact Info) Description 08/07/2024 10:45 EST Telemedicine [facility] Endocrinology [address] [place] [address] Ricky Wei MD [address] [facility] [address] [place] [address] documented as of this encounter Procedures Procedure [...] dysplasia. - ??Submucosal reactive changes. Comment: ? Or Manager sections of this case were reviewed at [...] Hawkins MD PATHOLOGY ORDERABLES Performing Organization Address City/State/[facility] Co de Phone Number [facility] [address] [place] [address] documented in this encounter Visit Diagnoses Not on filedocumented in this encounter Care Teams Digital Operations Analyst Relationship Specialty Start Date End Date Unknown, Provider, PCP - General 03/30/13 03/11/19 documented as of this encounter
--- OUTSIDE RECORDS SUMMARY | 2024-04-20 00:22 | XMS_ITS | Encounter Summary ---
Author [place] [address] Care Team Providers Care Job Molder Name Role Phone LorenzoCasperBhumi JONH Primary Care Provider [phone] Encounter Details Date Type Department Care Team (Late st Contact Info) Description 02/19/2014 Telephone [place] [phone] Lucia Louise, RN Social History Tobacco Use [...] on 02/26/2014 (date of procedure) with their milk pickup driver. 2. Following instructions left in the [...] on filedocumented in this encounter Care Teams Job Molder Relationship Specialty Start Date End Date Bhumi Ventura APRN [address] [place] [address] PCP - General 08/23/13 11/13/14 documented as of this encounter
--- OUTSIDE RECORDS SUMMARY | 2024-04-20 00:22 | XMS_ITS | Encounter Summary ---
Author Organization [facility] Address [address] [place] [address] Care Team Providers Care Revenue Stamper Name Role Phone Lynne Ramírez JAVID Primary Care Provider [phone] Reason for Visit * Reason Onset Date Comments Medications Refill 03/23/2021 Encounter Details Date Type Department Care Team (Late st Contact Info) Description 03/23/2021 Telephone [facility] Endocrinology [address] [place] [address] Samantha Mcguire, MORRIS [address] [place] [address] Medications Refill Social History Tobacco Use Types [...] 10:45 EST Telemedicine [facility] Endocrinology [address] [place], [place] [phone] Ricky Wei MD [address] [phone] documented as of this encounter Visit Diagnoses Not on filedocumented in this encounter Discontinued Medications Medication Sig Discontinue Reason Start Date End Da te levothyroxine (SYNTHROID) 200 mcg tablet Take 1 Tablet by mouth daily. Branded name necessary Reorder 01/26/2021 03/23/2021 documented as of this encounter Care Teams Revenue Stamper Relationship Specialty Start Date End Date Lynne Ramírez FNP [address] [place] [address] PCP - General 03/12/19 09/04/23 documented as of this encounter
--- OUTSIDE RECORDS SUMMARY | 2024-04-20 00:22 | XMS_ITS | Encounter Summary ---
Author Organization [facility] Address [address] [place] [address] Care Team Providers Care Optical Lathe Operator Name Role Phone Lynne Ramírez JAVID Primary Care Provider [phone] Mariaelena Garces MANAGER READING Unavailable [phone] Kyaw Ahn RPA Primary Care Provider [phone] Encounter Details Date Type Department Care Team (Late st Contact Info) Description 10/20/2021 Lab Requisition [facility] Pathology & Laboratory Medicine - [facility] [address] [place] [address] Outr Resulting Lab, Provider Social History Tobacco [...] Contact Info) Description 08/07/2024 10:45 EST Telemedicine [facility] Endocrinology [address] [place] [address] Ricky Wei MD 130 [facility] [address] [place] [phone] documented as of this encounter Procedures Procedure Name Priority Date/Time Associated Diagnosis Comments HOLD SST Today 10/19/2021 9:21 EDT HOLD SST Today 10/19/2021 9:21 EDT LYME AB Today 10/19/2021 9:21 EDT ANTI THYROGLOBULIN Today 10/19/2021 9:21 EDT T3, TOTAL Today 10/19/2021 9:21 EDT documented in this encounter Results * HOLD SST (10/19/2021 9:21 EDT) Hold Hold 10/20/2021 18:01 EDT [facility] Blood VENOUS BLOOD / Unknown 10/19/2021 9:21 EDT 10/20/2021 16:56 EDT Provider Outr Resulting Lab LAB INFO SER VICE AND SUPPORT & PHONE RESULT [facility] [address] [place] [address] * HOLD SST (10/19/2021 9:21 EDT) Hold Hold 10/20/2021 18:01 EDT [facility] Blood VENOUS BLOOD / Unknown 10/19/2021 9:21 EDT 10/20/2021 16:56 EDT Provider Outr Resulting Lab LAB INFO SER VICE AND SUPPORT & PHONE RESULT Performing Organization Address City/[facility]/ZIP Co de Phone Number [facility] [address] [place] [address] * T3, TOTAL (10/19/2021 9:21 EDT) [facility] T3, Total 133 97 - 169 ng/dL 10/20/2021 17:47 EDT [facility] Blood VENOUS BLOOD / Unknown 10/19/2021 9:21 EDT 10/20/2021 16:53 EDT Provider Outr Resulting Lab CHEMISTRY & BLOOD GAS ORDERABLES Performing Organization Address [facility]/ZIP Co de Phone Number [facility] [address] [place] [address] * ANTI THYROGLOBULIN (10/19/2021 9:21 EDT) [facility] Anti-Thyroglob ulin <15 <=60 U/mL 10/20/2021 20:16 EDT [facility] Blood VENOUS BLOOD / Unknown 10/19/2021 9:21 EDT 10/20/2021 16:53 EDT Provider Outr Resulting Lab CHEMISTRY & BLOOD GAS ORDERABLES Performing Organization Address [facility]/ZIP Co de Phone Number [facility] [address] [place] [address] * LYME AB (10/19/2021 9:21 EDT) [facility] Lyme Ab Negative Negative 10/21/2021 12:13 EDT [facility] Blood VENOUS BLOOD / Unknown 10/19/2021 9:21 EDT 10/20/2021 16:53 EDT Provider Outr Resulting Lab IMMUNOLOGY A ND SEROLOGY ORDERABLES Performing Organization Address City/[facility]/ZIP Co de Phone Number [facility] [address] [place] [address] documented in this encounter Visit Diagnoses Not on filedocumented in this encounter Care Teams Optical Lathe Operator Relationship Specialty Start Date End Date Lynne Ramírez FNP [address] [facility], [place] [phone] PCP - General 03/12/19 09/04/23 Kyaw Ahn RPA [address] [facility] [address] [place] [address] PCP - General Family Medicine - Primary Care 09/05/23 Mariaelena Garces NP [address] [place] [phone] Nurse Practitioner Endocrinology, Diabetes and Metabolism 07/20/21 documented as of this encounter
--- OUTSIDE RECORDS SUMMARY | 2024-04-20 00:22 | XMS_ITS | Encounter Summary ---
Author Organization [facility] [place] [address] Care Team Providers Care Taper And Floater Name Role Phone Ruola Bauman APRN Primary Care Provider [phone] Reason for Visit * Reason Comments Abdominal Pain Encounter Details Date Type Department Care Team (Late st Contact Info) Description 11/13/2014 10:34 PM EDT - 11/14/2014 4:00 AM EDT [place] [phone] Christien Mackey MD [facility] [place] [address] Abdominal pain, RLQ (right lower quadrant) Discharge [...] encounter Discharge Instructions * Discharge Instructions* JayNelly msall - 11/14/2014 3:22 AM EDT Images from the original note were not included. [facility] Abdominal Pain: After Your Visit Your [...] more? Visit our health information library at [email or web address] You can also view health information on [employer]uxe[employer], your personal patient account. Log in or sign up today. Enter E907 in the search box to learn more about Abdominal Pain: After Your Visit. ?? [phone] Medify, FamilyID. Care instructions adapted under license by [facility]. This care instruction is for use with your licensed healthcare professional. If you have questions about a medical condition or this instruction, always ask your healthcare professional. [employer] disclaims any warranty or liability for your use of this information. Content Version: 10.4.196864; Current as of: November 28, 2013 documented [...] PCP this afternoon who sent her to [facility] ED for evaluation and a CT scan [...] am, negative urine dip. Then went to [facility] [place], labs done. Unable to [...] Scheduled Procedures Name Priority Associated Diagnoses Date/Ti hi COLONOSCOPY, DIAGNOSTIC (WRV U 3.26) + cologuard [...] Urine Dipstick Hazy(A) Clear CERNER MILLENNIUM Specific [place] Urine Automated 1.021 1.002 - 1.030 CERNER [...] In Lab Christine Mackey MD [facility] * CT abdomen & pelvis with [...] Mendez) documented in this encounter Care Teams Taper And Floater Relationship Specialty Start Date End Date Roula Bauman APRN [address] [place] [address] PCP - General 11/14/14 documented as of this encounter
--- OUTSIDE RECORDS SUMMARY | 2024-04-20 00:22 | XMS_ITS | Encounter Summary ---
Author Organization [facility] [place] [address] Care Team Providers Care Graphics Specialist Name Role Phone Roula Bauman APRN Primary Care Provider [phone] Reason for Visit * Reason Comments Skin Lesion Encounter Details Date Type Department Care Team (Late st Contact Info) Description 09/29/2015 10:15 AM EDT Office Visit Dermatology at [facility] [address] [place] [phone] Constance Hanley MD [facility] [address] [place] [address] Dermatofibroma; Prurigo nodularis Social History Tobacco Use [...] and signed by: Constance Hanley MD Dermatology [facility] documented in this encounter Plan of Treatment [...] chronicus documented in this encounter Care Teams Graphics Specialist Relationship Specialty Start Date End Date Roula Bauman APRN [address] [place] [address] PCP - General 11/14/14 documented as of this encounter
--- OUTSIDE RECORDS SUMMARY | 2024-04-20 00:22 | XMS_ITS | Encounter Summary ---
Author Organization [facility] Address [address] [place] [address] Care Team Providers Care Ultrasound Specialist Name Role Phone Lynne Ramírez JAVID Primary Care Provider [phone] Mariaelena Garces ORTHOPEDIC PHYSICIAN Unavailable [phone] Kyaw Ahn RPA Primary Care Provider [phone] Encounter Details Date Type Department Care Team (Late st Contact Info) Description 03/18/2020 Lab Requisition [facility] Pathology & Laboratory Medicine - [facility] [address] [place] [address] Outr Resulting Lab, Provider Social History Tobacco [...] Contact Info) Description 08/07/2024 10:45 EST Telemedicine [facility] Endocrinology [address] [place] [address] Ricky Wei MD [address] [phone] documented as of this encounter Procedures Procedure Name Priority Date/Time Associated Diagnosis Comments ANTI THYROGLOBULIN Routine 03/17/2020 9:51 EDT documented in this encounter Results * ANTI THYROGLOBULIN (03/17/2020 9:51 EDT) Anti-Thyroglob ulin <15 <=60 U/mL 03/19/2020 12:05 EDT [facility] Blood VENOUS BLOOD / Unknown 03/17/2020 9:51 EDT 03/18/2020 21:10 EDT Provider Outr Resulting Lab CHEMISTRY & BLOOD GAS ORDERABLES [facility] [address] [place] [address] documented in this encounter Visit Diagnoses Not on filedocumented in this encounter Care Teams Ultrasound Specialist Relationship Specialty Start Date End Date Lynne Ramírez FNP [address] [place] [phone] PCP - General 03/12/19 09/04/23 Kyaw Ahn RPA [address] [place] [id number] PCP - General Family Medicine - Primary Care 09/05/23 Mariaelena Garces NP [address] [phone] Nurse Practitioner Endocrinology, Diabetes and Metabolism 07/20/21 documented as of this encounter
--- OUTSIDE RECORDS SUMMARY | 2024-04-20 00:22 | XMS_ITS | Encounter Summary ---
[place] [address] Care Team Providers Care Public Relations Studies Director Name Role Phone LorenzoCasperBhumi JOHN Primary Care Provider [phone] Encounter Details Date Type Department Care Team (Late st Contact Info) Description 02/21/2014 [place]phone [place] [phone] Juana Jane RN Social History Tobacco Use [...] RF patients with a pacemaker) on 02/26/2014. Grinding Room Supervisor: The patient was reminded that they need to have a contract driver accompany them to her procedure who will [...] No Prior to checking in at [employer] [facility] [employer], please be sure to empty your bladder. Patient confirmed understanding that if they do not follow the above their instructions, their procedure is likely to be cancelled. Juana Jane RN documented in this encounter Plan of Treatment Scheduled Procedures Name Priority Associated Diagnoses Date/Ti sd COLONOSCOPY, DIAGNOSTIC (WRV U 3.26) + cologuard Procedure: Colonoscopy Indication: Positive Cologuard Sedation: MAC Rationale for MAC: MONSE with BiPap, severe obesity with BMI >40 Timeframe: within 3 months Specific provider: first available documented as of this encounter Visit Diagnoses Not on filedocumented in this encounter Care Teams Public Relations Studies Director Relationship Specialty Start Date End Date Bhumi Ventura APRN [address] [place] [address] PCP - General 08/23/13 11/13/14 documented as of this encounter
--- OUTSIDE RECORDS SUMMARY | 2024-04-20 00:22 | XMS_ITS | Encounter Summary ---
Author Organization [facility] Address [address] [place] [address] Care Team Providers Care Dental Mechanic Name Role Phone Lynne Ramírez JAVID Primary Care Provider [phone] Reason for Visit * Reason Comments New Patient Visit Encounter Details Date Type Department Care Team (Latest Contact Info) Description 07/28/2020 11:30 EST Telemedicine [facility] Endocrinology [address] [place] [address] Quan Darnell MD [address] [facility] [address] [place] [address] Postablative hypothyroidism (Primary Dx); Thyroid cancer ([facility]) Social History Tobacco Use Types Packs/Day Years [...] Quan Pope MD - 07/28/2020 1130 EST [facility] Telephone Visit Subjective: Chief Complaint(s): New Patient [...] Plan: 1. Postablative hypothyroidism 2. Thyroid cancer ([facility]) Hypothyroidism: based on last labs appeared over [...] Contact Info) Description 08/07/2024 10:45 EST Telemedicine [facility] Endocrinology [address] [place] [address] Ricky Wei MD [address] [facility] [place] [phone] Scheduled Orders Name Type Priority Associated Diagnoses [...] capsule Take 4 Tabs by mouth daily. Oxdpd-5-OCD-EPA-Fish Oil 1,200 (144-216) mg capsule Take 2 Caps by mouth. folic acid/multivit-min/lutein (CENTRUM SILVER ORAL) Take 1 Tab by mouth. piroxicam (FELDENE) 10 mg capsule Take 20 mg by mouth daily. 07/28/2020 naproxen sodium (ANAPROX) 550 mg tablet Take 550 mg by mouth. 07/28/2020 ARIPiprazole (ABILIFY) 5 mg tablet Take 5 mg by mouth daily. 07/28/2020 added in this encounter Care Teams Dental Mechanic Relationship Specialty Start Date End Date Lynne Ramírez F[place] [address] [place] [address] PCP - General 03/12/19 09/04/23 documented as of this encounter
--- OUTSIDE RECORDS SUMMARY | 2024-04-20 00:22 | XMS_ITS | Encounter Summary ---
Author Organization [facility]ophy [facility] [place] [address] Care Team Providers Care Biodiesel Product Manager Name Role Phone Bhumi Ventura JOHN Primary Care Provider Reason for Visit * Reason Comments Low Back Pain Encounter Details Date Type Department Care Team (Late st Contact Info) Description 10/26/2013 11:00 AM EDT Office [place] [phone] Jahaira Hernandez, PT [facility] EugeneGeniaBhumi ruffinJOHN [address] [place], [place] [phone] Sebastien Kathleen MD [facility] [place] [address] Mechanical low back pain Discharge Disposition: Home [...] Lumbago documented in this encounter Care Teams Biodiesel Product Manager Relationship Specialty Start Date End Date Bhumi Ventura APRN [address] [place] [address] PCP - General 08/23/13 11/13/14 documented as of this encounter
--- OUTSIDE RECORDS SUMMARY | 2024-04-20 00:22 | XMS_ITS | Encounter Summary ---
[place] [address] Care Team Providers Care Antichecking Iron Worker Name Role Phone Bhumi Ventura APRN Primary Care Provider [phone] Reason for Referral * Consultation (Routine) - Closed Specialty Diagnoses / Procedures Referred By Contramón t Referred To Contact Pain Management Diagnoses Mechanical low back pain Jose C Marroquin PA [facility] [place] [place] [address] [facility] [address] [place] [address] Referral ID Status Reason Start Date Expiration Date V isits Requested Visits Authorized [id number] Closed Consult, Test & Treat 10/03/2013 04/01/2014 3 3 Reason for Visit * Reason Comments Low Back Pain Encounter Details Date Type Department Care Team (Late st Contact Info) Description 10/03/2013 9:20 AM EDT Follow-[place] [phone] Jose C Marroquin PA [facility] [place] [address] Mechanical low back pain (Primary [...] Lumbago documented in this encounter Care Teams Antichecking Iron Worker Relationship Specialty Start Date End Date Bhumi Ventura APRN [address] [place] [address] PCP - General 08/23/13 11/13/14 documented as of this encounter
--- OUTSIDE RECORDS SUMMARY | 2024-04-20 00:22 | XMS_ITS | Encounter Summary ---
Author [facility] [place] [address] Care Team Providers Care Data Entry Assistant Name Role Phone Lorenzo Bhumi LOPEZ Primary Care Provider [phone] Reason for Visit * Reason Comments Back Pain Encounter Details Date Type Department Care Team (Latest Contact Info) Description 12/10/2013 2:30 PM EDT Procedure [place] [address] Ricky [facility]er[facility] [place] [address] Lumbosacral spondylosis without myelopathy (Primary Dx) Discharge [...] by Dr. Ricky Banerjee DO and Josh Stokes DO who performed Bilateral lumbar radiofrequency. It [...] No 2. Patient states they have a armored car driver to transport after procedure? Yes 3. [...] skin entry points and subcutaneous tissues, a [id number] 20 guage curved needle with a 10mm [...] the entire procedure. Ricky Banerjee DO, MPH [facility]-subspecialty board certification in Pain Medicine Attending Physician-Pain Management CC: Bhumijeremiah Ventura, PRACTICE DIRECTOR [address] [place] [address] documented in this encounter Plan of Treatment [...] skin entry points and subcutaneous tissues, a [id number] 20 guage curved needle with a 10mm [...] Medicine Attending Physician-Pain Management CC: Bhumi Ventura, PRACTICE DIRECTOR [address] [place] [address] Procedure Note Huch, Josh M, DO - [...] the skin entry points andsubcutaneous tissues, a [id number] 20 guage curved needle with a 10mmactive [...] Attending Physician-Pain Management CC: Bhumi Ventura APRN [address] [place] [address] Ricky Allen DO PROCEDURE/MINOR SURG ICAL ORDERABLES [...] mg documented in this encounter Care Teams Data Entry Assistant Relationship Specialty Start Date End Date Bhumi Ventura APRN [address] [facility] [address] PCP - General 08/23/13 11/13/14 documented as of this encounter
--- OUTSIDE RECORDS SUMMARY | 2024-04-20 00:22 | XMS_ITS | Encounter Summary ---
[place] [address] Care Team Providers Care Center Sales And Service Associate Name Role Phone Lorenzo Bhumi LOPEZ Primary Care Provider [phone] Encounter Details Date Type Department Care Team (Late st Contact Info) Description 02/21/2014 Telephone [place] [phone] Juana Jane RN Social History Tobacco Use [...] procedure start time) on 02/26/2014 with their tank driver. 2. Following instructions left in the [...] on filedocumented in this encounter Care Teams Center Sales And Service Associate Relationship Specialty Start Date End Date Bhumi Ventura APRN [address] [place] [address] PCP - General 08/23/13 11/13/14 documented as of this encounter
--- OUTSIDE RECORDS SUMMARY | 2024-04-20 00:22 | XMS_ITS | Encounter Summary ---
Author Organization [facility] Address [address] [place] [address] Care Team Providers Care Conceptor Name Role Phone Unavailable Primary Care Provider Unavailabl e Encounter Details Date Type Department Care Team (Late st Contact Info) Description 10/16/2003 Results Only [facility] [address] [place] [address] William Latif MD [address] [place] [address] Social History Tobacco Use Types Packs/Day Years Used Date Smoking Tobacco: Never Assessed Sex and Gender Information Value Date Recorded Sex Assigned at Not on file Gender Identity Female 06/15/2021 12:28 EST Sexual Orientation Not on file documented as of this encounter Plan of Treatment Upcoming Encounters Date Type Department Care Team (Late st Contact Info) Description 08/07/2024 10:45 EST Telemedicine [facility] Endocrinology [address] [place], [place] [address] Ricky Wei MD 130 [facility] [address] [place] [phone] documented as of this encounter Procedures Procedure [...] ? VANESA COOPER ? Accession #: ? [id number] ? : ? 1965 (Age: 38) ??F ? Collect Date: ? 10/16/2003 ? Location: ? [facility] ? Receive Date: ? 10/16/2003 ? Provider: WILLIAM LATIF MD Copy to: ANUSHA KAUR COMPUTER GAME DESIGNER ? Final Pathologic Diagnosis: ? Gallbladder, cholecystectomy: [...] brown-green hard cholelith. ??The gallbladder mucosa is lwu-kxfcn-xsgyy and velvety. ??Serial sectioning reveals no masses or nodules with a wall thickness of 0.2 cm. ??The cystic duct is identified with a staple clip at one end, with no cystic duct lymph node identified. ??Three jewelry sales representative sections of gallbladder are submitted in one cassette. ??(Dr. Bassett)/[facility] End of Report [facility] 10/16/2003 10/16/2003 15: 01 EDT William Latif MD PATHOLOGY ORDERABLE S [facility] [address] [place] [address] documented in this encounter Visit Diagnoses Not on filedocumented in this encounter
--- OUTSIDE RECORDS SUMMARY | 2024-04-20 00:22 | XMS_ITS | Clinical Summary ---
Author Organization [facility] Address One [facility] [place] [address] Care Team Providers Care Deputy Court Name Role Phone Roula Bauman APRN Primary Care Provider [phone] Allergies No known active allergies Medications Medication [...] Care Team Description 01/24/2024 Telephone [place] [address] Jess [place] 01/20/2024 Telephone [place] [phone] lenin Pancho from Last 3 Months Family History Medical [...] HIV screen 1981 Hepatitis C Screening 1981 Tetanus/Diphtheria/Pertussis Vaccines (1 - Tdap) 1982 HPV test 1993 PAP Smear 1993 Breast Cancer Share Decision Needed 2003 Breast Cancer screening 2003 Zoster vaccine (1 of 2) 2013 Advance Directive 2018 Influenza (Flu) vaccine (1 o f 1 - Influenza standard series) 02/26/2024 Covid-19 Vaccine Completed 07/01/2023, 01/2022, 10/19/2021, Additional history exists Care Teams Deputy Court Relationship Specialty Start Date End Date Roula Bauman APRN [address] [place] [address] PCP - General 11/14/14
--- OUTSIDE RECORDS SUMMARY | 2024-04-20 00:22 | XMS_ITS | Encounter Summary ---
[place] [address] Care Team Providers Care Piping Blocker Name Role Phone Bhumi Ventura APRN Primary Care Provider [phone] Encounter Details Date Type Department Care Team (Late st Contact Info) Description 11/12/2013 Telephone [place] [phone] Laura Fishman LPN Social History Tobacco Use [...] Center Post-Procedure Phone Note Patient: Vanesa Marrero [id number] Post-procedure phone call from patient to report [...] on filedocumented in this encounter Care Teams Piping Blocker Relationship Specialty Start Date End Date Bhumi Ventura APRN [address] [place] [address] PCP - General 08/23/13 11/13/14 documented as of this encounter
--- OUTSIDE RECORDS SUMMARY | 2024-04-20 00:22 | XMS_ITS | Encounter Summary ---
[place] [address] Care Team Providers Care Loader Operator/Ground Leader Name Role Phone LorenzoBhumi JOHN Primary Care Provider [phone] Encounter Details Date Type Department Care Team (Late st Contact Info) Description 11/20/2013 Telephone [place] [phone] Laura Fishman LPN Social History Tobacco Use [...] a pacemaker) on 11/21/13 (date of procedure). Software Program Manager: The patient was reminded that they need to have a distribution driver accompany them to her procedure who [...] No Prior to checking in at [employer], please be sure to empty your bladder. [...] on filedocumented in this encounter Care Teams Loader Operator/Ground Leader Relationship Specialty Start Date End Date Bhumi Ventura APRN [address] [place] [address] PCP - General 08/23/13 11/13/14 documented as of this encounter
--- OUTSIDE RECORDS SUMMARY | 2024-04-20 00:22 | XMS_ITS | Encounter Summary ---
Author Organization [facility] [place] [address] Care Team Providers Care Tower Technician Name Role Phone Roula Bauman APRN Primary Care Provider [phone] Encounter Details Date Type Department Care Team (Late st Contact Info) Description 2019 Ancillary Procedure Radiology [facility] [place] [address] Juan Manuel Eldridge MD [facility] [place] [address] Social History Tobacco Use Types Packs/Day Years [...] Ultrasound Study (2019 12:00 AM EDT) Narrative RAD - 12/21/2021 1:25 PM EDT This exam is auto-finalizing. It's purpose is for storage only. Juan Manuel Eldridge MD [facility] FILM LIBRARY ORD ERABLES Performing Organization Address City/State/[facility] Co de Phone Number [place], [place] documented in this encounter Visit Diagnoses Not on filedocumented in this encounter Care Teams Tower Technician Relationship Specialty Start Date End Date Roula Bauman APRN [address] [place] [address] PCP - General 11/14/14 documented as of this encounter
--- OUTSIDE RECORDS SUMMARY | 2024-04-20 00:22 | XMS_ITS | Encounter Summary ---
Author Organization [facility] Address [address] [place] [address] Care Team Providers Care Car Oiler Name Role Phone Lynne Ramírez WHITE SPOOLER Primary Care Provider [phone] Encounter Details Date Type Department Care Team (Late st Contact Info) Description 04/22/[address] [facility] Endocrinology [address] [place] [address] [phone] Brenna Darnell MD [address] [place] [address] [address] [place] [phone] Social History Tobacco Use Types Packs/Day Years [...] Contact Info) Description 08/07/2024 10:[address] [facility] Endocrinology [address] [place] [address] Ricky Wei MD [address] [facility] [address] [place] [address] documented as of this encounter Visit Diagnoses Not on filedocumented in this encounter Care Teams Car Oiler Relationship Specialty Start Date End Date Lynne Ramírez FNP [address] [place], [place] [id number] PCP - General 03/12/19 09/04/23 documented as of this encounter
--- OUTSIDE RECORDS SUMMARY | 2024-04-20 00:22 | XMS_ITS | Encounter Summary ---
[place] [address] Care Team Providers Care Cherry Pitter Name Role Phone Roula Bauman APRN Primary Care Provider [phone] Encounter Details Date Type Department Care Team (Late st Contact Info) Description 01/20/2024 Telephone [place] [phone] Pancho Hart Social History Tobacco Use Types [...] - 01/20/2024 2:34 PM EDT Vanesa Marrero [id number] Diagnosis/Indication: + cologuard Please review patient chart [...] procedure? No You must have a responsible democrat who will drive you to your procedure, stay on campus for the entire duration of your procedure, and drive you home from your procedure. Who will likely be your warehouse associate driver for the procedure? Bhumi *Please Verify [...] on filedocumented in this encounter Care Teams Cherry Pitter Relationship Specialty Start Date End Date Roula Bauman APRN [address] [place] [address] PCP - General 11/14/14 documented as of this encounter
--- OUTSIDE RECORDS SUMMARY | 2024-04-20 00:22 | XMS_ITS | Encounter Summary ---
Author Organization [facility] [place] [address] Care Team Providers Care Summer Law Associate Name Role Phone Roula Bauman APRN Primary Care Provider [phone] Encounter Details Date Type Department Care Team (Late st Contact Info) Description 05/13/2019 Ancillary Procedure Radiology Library at [facility] [place] [address] Juan Manuel Eldridge MD [facility] [place] [address] Social History Tobacco Use Types Packs/Day Years [...] Abdomen Pelvis (05/13/2019 12:00 AM EST) Narrative [facility] - 12/21/2021 1:24 PM EDT This exam is auto-finalizing. It's purpose is for storage only. Juan Manuel Eldridge MD [facility] FILM LIBRARY ORD ERABLES Performing Organization Address City/State/[facility] Co de Phone Number [place], [place] documented in this encounter Visit Diagnoses Not on filedocumented in this encounter Care Teams Summer Law Associate Relationship Specialty Start Date End Date Roula Bauman APRN [address] [place] [address] PCP - General 11/14/14 documented as of this encounter
--- OUTSIDE RECORDS SUMMARY | 2024-04-20 00:22 | XMS_ITS | Encounter Summary ---
Author Organization [facility] Address [address] [place] [address] Care Team Providers Care Manager Corporate Communications Name Role Phone Lynne Ramírez JAVID Primary Care Provider [phone] Reason for Visit * Reason Onset Date Comments Results 08/25/2020 TSH Encounter Details Date Type Department Care Team (Late st Contact Info) Description 08/25/2020 Telephone [facility] Endocrinology [address] [place] [address] Brenna Darnell MD 130 [facility] [address] [place] [address] Results (TSH) Social History Tobacco [...] Contact Info) Description 08/07/2024 10:45 EST Telemedicine [facility] Endocrinology [address] [place] [address] Ricky Wei MD 130 [facility] [address] [place] [phone] documented as of this encounter Visit Diagnoses Not on filedocumented in this encounter Discontinued Medications Medication Sig Discontinue Reason Start Date End Da te levothyroxine (SYNTHROID) 200 mcg tablet Take 200 mcg by mouth daily. Reorder 08/25/2020 documented as of this encounter Care Teams Manager Corporate Communications Relationship Specialty Start Date End Date Lynne Ramírez FNP [address] [place] [address] PCP - General 03/12/19 09/04/23 documented as of this encounter
--- OUTSIDE RECORDS SUMMARY | 2024-04-20 00:22 | XMS_ITS | Encounter Summary ---
[place] [address] Care Team Providers Care Department Chairperson Name Role Phone Lorenzo Bhumi LOPEZ Primary Care Provider [phone] Encounter Details Date Type Department Care Team (Late st Contact Info) Description 10/12/2013 Telephone [place] [phone] Sena Castellano, RN Social History Tobacco Use [...] 1:23 PM regarding her upcoming appointment at [facility]. Message included the followin. Patient instructed to arrive at 0915 (30 minutes prior to procedure start time) on 10/19/13 (dateof procedure) with their cdl b driver. 2. Following instructions left in the [...] on filedocumented in this encounter Care Teams Department Chairperson Relationship Specialty Start Date End Date Bhumi Ventura APRN [address] [place] [address] PCP - General 08/23/13 11/13/14 documented as of this encounter
--- OUTSIDE RECORDS SUMMARY | 2024-04-20 00:22 | XMS_ITS | Encounter Summary ---
Author Organization [facility] Address [address] [place] [address] Care Team Providers Care Canvas Products Sales Representative Name Role Phone Lynne Ramírez JAVID Primary Care Provider Reason for Visit * Reason Comments Thyroid Problem Encounter Details Date Type Department Care Team (Late st Contact Info) Description 01/26/2021 14:00 EDT Office Visit [facility] [place] [address] [place], [place] [address] Brenna Darnell MD 130 [facility] [address] [place] [address] Hypothyroidism, postablative (Primary Dx); Medication [...] Brenna Pope MD - 01/26/2021 1400 EDT [facility] Video Visit Today's visit was provided through [...] Contact Info) Description 08/07/2024 10:45 EST Telemedicine [facility] Endocrinology [address] [place], [place] [phone] Ricky Wei MD 130 [facility] [address] [place] [address] documented as of this encounter [...] documented as of this encounter Care Teams Canvas Products Sales Representative Relationship Specialty Start Date End Date Lynne Ramírez FNP [place] [address] PCP - General 03/12/19 09/04/23 documented as of this encounter
--- OUTSIDE RECORDS SUMMARY | 2024-04-20 00:22 | XMS_ITS | Encounter Summary ---
[place] [address] Care Team Providers Care Rn Employee Health Name Role Phone LorenzoCasperBhumi JOHN Primary Care Provider [phone] Encounter Details Date Type Department Care Team (Late st Contact Info) Description 10/23/2013 Telephone [place] [phone] Sena Castellano, RN Social History Tobacco Use [...] on 10/26/13 (date of procedure) with their cdl team truck driver. 2. Following instructions left in the [...] on filedocumented in this encounter Care Teams Rn Employee Health Relationship Specialty Start Date End Date Bhumi Ventura APRN [address] [place], [place] [address] [address] PCP - General 08/23/13 11/13/14 documented as of this encounter
--- OUTSIDE RECORDS SUMMARY | 2024-04-20 00:22 | XMS_ITS | Encounter Summary ---
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[facility]); Chronic pain of both knees Social History [...] Contact Info) Description 08/07/2024 10:45 EST Telemedicine [facility] Endocrinology [address] [place] [address] Ricky Wei MD 130 [facility]-A [address] [place] [address] documented as of this encounter [...] FILIBERTO Interpretation Negative Negative 2018 15:22 EST [facility] Blood VENOUS BLOOD / Unknown Venipuncture / Unknown 05/22/2019 16:50 EST 05/22/2019 17:42 EST Narrative [facility] - 05/23/2019 15:22 EST Results were obtained with the [employer] NOVA Lite HEp-2 FILIBERTO Kit by indirect immunofluorescence. Constantine Correia MD IMMUNOLOGY AND SEROLOGY ORDERABLES [facility] [address] [place] [address] * RHEUMATOID FACTOR (05/22/2019 16:50 EST) Rheumatoid Factor 8.0 <12.5 IU/mL 05/23/2019 11:34 EST [facility] Blood VENOUS BLOOD / Unknown Venipuncture / Unknown 05/22/2019 16:50 EST 05/22/2019 17:42 EST Constantine Correia MD CHEMISTRY & BL OOD GAS ORDERABLES Performing Organization Address [facility] de Phone Number [facility] [address] [place] [address] * SSB ANTIBODIES BY JIMMIE (05/22/2019 16:50 EST) SSB Antibody 2.4 <20.0 Units 05/29/2019 12:52 EST [facility] Comment: ? Negative: <20.0 Units ? Weak Positive: 20.0 - 39.9 Units ? Moderate Positive: 40.0 - 80.0 Units ? Strong Positive: >80.0 Units Results were obtained with the [employer] QUANTA Lite SS-B JIMMIE. ??SS-B values obtained with different manufacturers' assay methods may not be used interchangeably. ??The magnitude of the reported IgG levels cannot be correlated to an endpoint titer. Blood VENOUS BLOOD / Unknown Venipuncture / Unknown 05/22/2019 16:50 EST 05/22/2019 17:42 EST Constantine Correia MD IMMUNOLOGY AND SEROLOGY ORDERABLES Performing Organization Address [facility] de Phone Number [facility] [address] [place] [address] * SSA ANTIBODIES BY JIMMIE (05/22/2019 16:50 EST) SSA Antibody 1.3 <20.0 Units 05/29/2019 12:49 EST [facility] Comment: ? Negative: <20.0 Units ? Weak Positive: 20.0 - 39.9 Units ? Moderate Positive: 40.0 - 80.0 Units ? Strong Positive: >80.0 Units Results were obtained with the [employer] QUANTA Lite SS-A JIMMIE. ??SS-A values obtained with different manufacturers' assay methods may not be used interchangeably. ??The magnitude of the reported IgG levels cannot be correlated to an endpoint titer. 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
--- OUTSIDE RECORDS SUMMARY | 2024-04-20 00:22 | XMS_ITS | Encounter Summary ---
[place] [address] Care Team Providers Care Grain Operator Name Role Phone Bhumi Ventura APRN Primary Care Provider [phone] Encounter Details Date Type Department Care Team (Late st Contact Info) Description 11/22/2013 Telephone [place] [phone] Elise Mojica, RN Social History Tobacco Use [...] Center Post-Procedure Phone Note Patient: Vanesa Marrero [id number] Post-procedure phone call from patient to report [...] DO. _x_ Patient will be contacted by private secretary in Pain Management Center as described [...] on filedocumented in this encounter Care Teams Grain Operator Relationship Specialty Start Date End Date Bhumi Ventura APRN [address] [place] [address] PCP - General 08/23/13 11/13/14 documented as of this encounter
--- OUTSIDE RECORDS SUMMARY | 2024-04-20 00:22 | XMS_ITS | Encounter Summary ---
Author Organization [facility] Sophy [facility] [place] [address] Care Team Providers Care Embossograph Operator Name Role Phone Lorenzo Bhumi LOPEZ Primary Care Provider [phone] Reason for Visit * Reason Comments Back Pain Encounter Details Date Type Department Care Team (Latest Contact Info) Description 11/21/2013 1:30 PM EDT Procedure visit [place] [address] [facility] [place] [place] [address] Lumbosacral spondylosis without myelopathy Discharge Disposition: Home [...] Patient Instructions * Patient Instructions* America Singer, DATA POWER CONSULTANT - 11/21/2013 1:45 PM EDT Pain Management [...] Post -Procedure Pain Log Patient: Vanesa Marrero [id number] It is important for you to keep [...] No 2. Patient states they have a water tanker driver to transport after procedure? Yes 3. [...] Medicine Attending Physician-Pain Management CC: MAKENNA Patel [facility] [place] [address] documented in this encounter Plan of Treatment [...] Medicine Attending Physician-Pain Management CC: MAKENNA Patel [facility] [place] [address] Procedure Note Linda May - 11/21/2013 2:05 [...] met discharge criteria, she was discharged from [facility]. COMMENTS: Pt tolerated the procedure well. [...] Medicine Attending Physician-Pain Management CC: MAKENNA Patel [facility] [place] [address] Arsen Allen DO NEUROLOGY ORDERABLES documented in [...] mg documented in this encounter Care Teams Embossograph Operator Relationship Specialty Start Date End Date Bhumi Ventura APRN [address] [place] [address] PCP - General 08/23/13 11/13/14 documented as of this encounter
--- OUTSIDE RECORDS SUMMARY | 2024-04-20 00:22 | XMS_ITS | Encounter Summary ---
Author Organization [facility] Address [address] [place] [address] Care Team Providers Care Mail Opener Name Role Phone Unknown, Provider Primary Care Provider [phone] Encounter Details Date Type Department Care Team (Latest Contact Info) Description 07/04/2013 9:26 EST - 07/04/2013 23:59 EST Hospital Encounter [address] [address] Unknown, Provider, Discharge Disposition: Home or Self Care Social History Tobacco Use Types Packs/Day Years Used Date Smoking Tobacco: Never Assessed Sex and Gender Information Value Date Recorded Sex Assigned at Not on file Gender Identity Female 06/15/2021 12:28 EST Sexual Orientation Not on file documented as of this encounter Discharge Disposition Disposition Code Departure Means Destination Home or Self Usp documented in this encounter Plan of Treatment Upcoming Encounters Date Type Department Care Team (Late st Contact Info) Description 08/07/2024 10:[address] [facility] Endocrinology [address] [place], [place] [phone] Ricky Wei MD 130 [facility] [address] [place] [address] documented as of this encounter Visit Diagnoses Not on filedocumented in this encounter Care Teams Mail Opener Relationship Specialty Start Date End Date Unknown, ProviderMD PCP - General 03/30/13 03/11/19 documented as of this encounter
--- OUTSIDE RECORDS SUMMARY | 2024-04-20 00:22 | XMS_ITS | Encounter Summary ---
Author Organization [facility]ophy [place] [address] Care Team Providers Care Broaching Machine Set Up Operator Name Role Phone Lorenzo Bhumi LOPEZ Primary Care Provider [phone] Reason for Visit * Reason Comments Back Pain Encounter Details Date Type Department Care Team (Latest Contact Info) Description 10/26/2013 1:15 PM EDT Procedure visit [place] [address] Ricky Baner[facility] [place] [address] Spondylosis of lumbar region without myelopathy or [...] Post -Procedure Pain Log Patient: Vanesa Marrero [id number] It is important for you to keep [...] Marrero Referring Physician: Jose C Marroquin [facility] [place] [address] Diagnosis: 1. Spondylosis of lumbar region without [...] the entire procedure. Ricky Banerjee DO, MPH [facility]subspecialty board certification in Pain Medicine Attending Physician - Pain Management CC: MAKENNA Patel [facility] [place] [address] * Sena Narayan LPN - 10/26/2013 1:47 PM EDT Pre-Procedure Screening Questions: 1. Status: No 2. 3. Patient states they have a pile driver operator to transport after procedure? Yes 4. Patient [...] Scheduled Procedures Name Priority Associated Diagnoses Date/Ti in COLONOSCOPY, DIAGNOSTIC (WRV U 3.26) + cologuard [...] mg documented in this encounter Care Teams Broaching Machine Set Up Operator Relationship Specialty Start Date End Date Bhumi Ventura APRN [address] [place] [address] PCP - General 08/23/13 11/13/14 documented as of this encounter
--- OUTSIDE RECORDS SUMMARY | 2024-04-20 00:22 | XMS_ITS | Encounter Summary ---
Author Organization [facility] Address [address] [place] [address] Care Team Providers Care Fourdrinier Wire Weaver Name Role Phone Lynne Ramírez Primary Care Provider [phone] Reason for Visit * Reason Comments New Patient Visit joint pain * Referral (Routine) - Closed Specialty Diagnoses / Procedures [facility] Referred To Contact Rheumatology Diagnoses Myalgia, unspecified site Lynne Ramírez FNP [address] [place] [address] [place] [address] [place] [address] Referral ID Status Reason Start Date Expiration Date Visits Re quested Visits Authorized [id number] Closed 1 1 Encounter Details Date Type Department Care Team (Late st Contact Info) Description 05/22/2019 14:55 EST Office Visit [facility] Rheumatology & Immunology - [address] [id number] Constantine Correia MD [address] [place] [address], [address] [place] [address] Sicca syndrome (HCC-CMS) (Primary Dx); [...] sicca by drinking water frequently and using zdsp-low-izhfjdt therapies like Biotene products, spray products, xylitol-based [...] documentation was created using voice recognition software. Temporary Help Agency Referral Clerk errors may be present. documented in this encounter Plan of Treatment Upcoming Encounters Date Type Department Care Team (Late st Contact Info) Description 08/07/2024 10:45 EST Telemedicine [facility] Endocrinology [address] [place] [address] Ricky Wei MD [address] [facility] [address] [place] [address] documented as of this encounter Results * ANTI NUCLEAR AB (FILIBERTO), IFA (05/22/2019 16:50 EST) FILIBERTO Interpretation Negative Negative 2018 15:22 EST [facility] Blood VENOUS BLOOD / Unknown Venipuncture / Unknown 05/22/2019 16:50 EST 05/22/2019 17:42 EST Narrative [facility] - 05/23/2019 15:22 EST Results were obtained with the INOVA NOVA Lite HEp-2 FILIBERTO Kit by indirect immunofluorescence. Constantine Correia MD IMMUNOLOGY AND SEROLOGY ORDERABLES [facility] [address] [place] [address] * RHEUMATOID FACTOR (05/22/2019 16:50 EST) Rheumatoid Factor 8.0 <12.5 IU/mL 05/23/2019 11:34 EST [facility] Blood VENOUS BLOOD / Unknown Venipuncture / Unknown 05/22/2019 16:50 EST 05/22/2019 17:42 EST Constantine Correia MD CHEMISTRY & BL OOD GAS ORDERABLES Performing Organization Address [facility] de Phone Number [facility] [address] [place] [address] * SSB ANTIBODIES BY JIMMIE (05/22/2019 16:50 EST) SSB Antibody 2.4 <20.0 Units 05/29/2019 12:52 EST [facility] Comment: ? Negative: <20.0 Units ? Weak Positive: 20.0 - 39.9 Units ? Moderate Positive: 40.0 - 80.0 Units ? Strong Positive: >80.0 Units Results were obtained with the Lagot[employer] QUANTA Lite SS-B JIMMIE. ??SS-B values obtained with different manufacturers' assay methods may not be used interchangeably. ??The magnitude of the reported IgG levels cannot be correlated to an endpoint titer. Blood VENOUS BLOOD / Unknown Venipuncture / Unknown 05/22/2019 16:50 EST 05/22/2019 17:42 EST Constantine Correia MD IMMUNOLOGY AND SEROLOGY ORDERABLES Performing Organization Address [facility] de Phone Number [facility] [address] [place] [address] * SSA ANTIBODIES BY JIMMIE (05/22/2019 16:50 EST) SSA Antibody 1.3 <20.0 Units 05/29/2019 12:49 EST [facility] Comment: ? Negative: <20.0 Units ? Weak Positive: 20.0 - 39.9 Units ? Moderate Positive: 40.0 - 80.0 Units ? Strong Positive: >80.0 Units Results were obtained with the [employer]otek QUANTA Lite SS-A JIMMIE. ??SS-A values obtained with different manufacturers' assay methods may not be used interchangeably. ??The magnitude of the reported IgG levels cannot be correlated to an endpoint titer. Blood VENOUS BLOOD / Unknown Venipuncture / Unknown 05/22/2019 16:50 EST 05/22/2019 17:42 EST Constantine Correia MD IMMUNOLOGY AND SEROLOGY ORDERABLES [facility] [address] [place] [address] documented in this encounter Visit Diagnoses Diagnosis Sicca syndrome ([facility])- Primary Sicca syndrome Chronic pain of both [...] 08/25/2020 added in this encounter Care Teams Fourdrinier Wire Weaver Relationship Specialty Start Date End Date Lynne Ramírez FNP [place] [address] PCP - General 03/12/19 09/04/23 documented as of this encounter
--- OUTSIDE RECORDS SUMMARY | 2024-04-20 00:22 | XMS_ITS | Encounter Summary ---
Author Organization [facility] [place] [address] Care Team Providers Care Belt Buckle Maker Name Role Phone LorenzoBhumi JOHN Primary Care Provider Reason for Visit * Reason Comments Low Back Pain Encounter Details Date Type Department Care Team (Late st Contact Info) Description 10/03/2013 8:00 AM EDT Office [place] [phone] Jahaira Hernandez, PT [facility] Sebastien Kathleen MD [facility] [place] [address] Mechanical low back pain (Primary Dx) Discharge [...] years. Past treatments have included physical therapy, pikq-pxe-vhudyzf medications, heat, and liniments. Unfortunately, none of [...] is a disabled woman who lives in [place], [place], with friends. She smokes 0.5 packs [...] Lumbago documented in this encounter Care Teams Belt Buckle Maker Relationship Specialty Start Date End Date Bhumi Ventura APRN [address] [place] [address] PCP - General 08/23/13 11/13/14 documented as of this encounter
--- OUTSIDE RECORDS SUMMARY | 2024-04-20 00:22 | XMS_ITS | Encounter Summary ---
[place] [address] Care Team Providers Care Surgical Technology Instructor Name Role Phone Roula Bauman APRN Primary Care Provider [phone] Reason for Referral * Consultation (Routine) - Closed Specialty Diagnoses / Procedures Referred By Alexia roger Referred To Contact Gastroenterology Diagnoses Special screening for malignant neoplasms, colon Procedures COLONOSCOPY Kyaw Ahn PA [address] [place] [address] [facility] Endoscopy [address] [place] [phone] Referral ID Status Reason Start Date Expiration Date V isits Requested Visits Authorized [id number] Closed Consult, Test & Treat 11/29/2023 11/28/2024 1 1 Encounter Details Date Type Department Care Team (Latest Contact Info) Description 11/29/2023 Transcribe Orders [place] [address] Kyaw Ahn PA [address] [place] [address] Special screening for malignant neoplasms, [...] colon documented in this encounter Care Teams Surgical Technology Instructor Relationship Specialty Start Date End Date Roula Bauman APRN [address] [place] [address] PCP - General 11/14/14 documented as of this encounter
--- OUTSIDE RECORDS SUMMARY | 2024-04-20 00:23 | XMS_ITS | Encounter Summary ---
[place] [address] Care Team Providers Care Loftsman/Woman Name Role Phone LorenzoCasperBhumilouise LOPEZ Primary Care Provider [phone] Reason for Visit * Reason Onset Date Comments Referral 07/25/2013 Encounter Details Date Type Department Care Team (Late st Contact Info) Description 07/25/2013 [place] [phone] Bony Valentin Referral Social History Tobacco Use Types Packs/Day Years Used Date Smoking Tobacco: Never Assessed Sex and Gender Information Value Date Recorded Sex Assigned at Not on file Gender Identity Not on file Sexual Orientation Not on file documented as of this encounter Miscellaneous Notes * Telephone Encounter - Kimmy Ramírez - 08/02/2013 11:37 AM EST I would like you to sign up for myD-H, which will give you secure online access to your electronic medical record at [facility] and the ability to communicate with your [...] the instructions. Here is your activation code: [email or web address] Expires: 09/16/2013 11:37 AM Remember, myD-H is NOT for urgent needs! Always dial 911 for medical emergencies. * Telephone Encounter - Marguerite Lopez - 07/31/2013 4:29 PM EST Appt. 08/23/13 * Telephone Encounter - Angelina Melo - 07/27/2013 12:11 PM EST Ask patient to verify the following: COMPLETE Full name: Vanesa Marrero : 1965 Phone number: [phone] (home) Mailing address: [address] [address] Intake: BILAT KNEE PAIN / DJD Is [...] for this issue? ?? X-Ray YES - [facility] ?? MRI ?? CT Scan ?? LABS Have you seen an Orthopaedic surgeon for the this issue? YES If YES: Who did you see? DR SHEPPARD Where were you seen (facility)? [facility] When? Have you ever had surgery for [...] on filedocumented in this encounter Care Teams Loftsman/Woman Relationship Specialty Start Date End Date Bhumi [place] APRN [address] [place] [address] PCP - General 08/23/13 11/13/14 documented as of this encounter
--- OUTSIDE RECORDS SUMMARY | 2024-04-20 00:23 | XMS_ITS | Encounter Summary ---
Author Organization [facility] [place] [address] Care Team Providers Care Railroad Wheels And Axle Inspector Name Role Phone Jose Akhtar MD Primary Care Provider + Encounter Details Date Type Department Care Team (Late st Contact Info) Description 05/02/2013 Orders [place] [address] Sebastien Kathleen MD [facility] [address] [place] [address] Social History Tobacco Use Types Packs/Day Years [...] on filedocumented in this encounter Care Teams Railroad Wheels And Axle Inspector Relationship Specialty Start Date End Date Jose Akhtar MD [address] [place] [address] PCP - General 05/19/10 08/22/13 documented as of this encounter
--- OUTSIDE RECORDS SUMMARY | 2024-04-20 00:23 | XMS_ITS | Encounter Summary ---
[place] [address] Care Team Providers Care Kidney Puller Name Role Phone Bhumi Ventura APRN Primary Care Provider [phone] Encounter Details Date Type Department Care Team (Late st Contact Info) Description 05/02/2013 Orders [place] [address] Jose C Marroquin PA [facility] [place] [address] Social History Tobacco Use Types Packs/Day Years [...] on filedocumented in this encounter Care Teams Kidney Puller Relationship Specialty Start Date End Date Bhumi Ventura APRN [address] [place] [address] PCP - General 08/23/13 11/13/14 documented as of this encounter
--- OUTSIDE RECORDS SUMMARY | 2024-04-20 00:23 | XMS_ITS | Encounter Summary ---
[place] [address] Care Team Providers Care Real Estate Branch Manager Name Role Phone Bhumi Ventura APRN Primary Care Provider [phone] Reason for Referral * Physical Therapy (Routine) - Closed Specialty Diagnoses / Procedures Referred By Contac t Referred To Contact Physical Therapy Diagnoses Mechanical low back pain Jose C Marroquin PA [facility] [place] [address] [facility] [place] [address] Referral ID Status Reason Start Date Expiration Date V isits Requested Visits Authorized [id number] Closed Evaluate and Treat 09/12/2013 03/11/2014 12 12 Reason for Visit * Reason Comments Referral back pain,lower Encounter Details Date Type Department Care Team (Late st Contact Info) Description 09/12/2013 10:00 AM EDT Office [place] [address] Jose C Marroquin PA [facility] [place] [address] Mechanical low back pain (Primary Dx) Discharge [...] Lumbago documented in this encounter Care Teams Real Estate Branch Manager Relationship Specialty Start Date End Date Bhumi Ventura APRN [address] [place] [address] PCP - General 08/23/13 11/13/14 documented as of this encounter
--- OUTSIDE RECORDS SUMMARY | 2024-04-20 00:23 | XMS_ITS | Encounter Summary ---
Author Organization [facility] [place] [address] Care Team Providers Care Jewelry Setter Name Role Phone Roula Bauman APRN Primary Care Provider [phone] Encounter Details Date Type Department Care Team (Late st Contact Info) Description 10/14/2005 Orders [place] [address] Ty Graham MD [facility] [place] [address] Social History Tobacco Use Types Packs/Day Years [...] 2:21 PM EDT) Surgical Pathology Report [id number] ? Location: The signing pathologist has (i) examined the relevant preparation(s) for the specimen(s) and (ii) rendered or confirmed the diagnosis(es). . ?Pathology Addendum Report Addendum Discussion Molecular testing for mitochondrial disease has been performed by Latrice Leal of [facility]. For the full text of the NI [...] the muscle and including adjacent adipose tissue. [facility] 10/14/2005 2:21 PM EDT Ty Graham MD PATHOLOGY/CYTOLOGY O RDERABLES [facility] documented in this encounter Visit Diagnoses Not on filedocumented in this encounter Care Teams Jewelry Setter Relationship Specialty Start Date End Date Roula Bauman APRN [address] [place] [address] PCP - General 11/14/14 documented as of this encounter
--- OUTSIDE RECORDS SUMMARY | 2024-04-20 00:23 | XMS_ITS | Encounter Summary ---
Author Organization [facility] [place] [address] Care Team Providers Care Wood Polisher Name Role Phone Jose Akhtar MD Primary Care Provider + Encounter Details Date Type Department Care Team (Late st Contact Info) Description 07/12/2013 [place] [address] Sebastien Kathleen MD [facility] [place] [address] Social History Tobacco Use Types Packs/Day Years [...] on filedocumented in this encounter Care Teams Wood Polisher Relationship Specialty Start Date End Date Jose Akhtar MD [address] [place] [address] PCP - General 05/19/10 08/22/13 documented as of this encounter
--- OUTSIDE RECORDS SUMMARY | 2024-04-20 00:23 | XMS_ITS | Encounter Summary ---
Author Organization [facility] Address [facility] [place] [address] Care Team Providers Care Cell Changer Name Role Phone Bhumi Ventura APRN Primary Care Provider Encounter Details Date Type Department Care Team (Latest Contact Info) Description 08/23/2013 12:38 PM EST - 08/23/2013 11:59 PM EST Hospital Encounter [facility]Ray at [facility] [address] [place] [address] Bilateral knee pain Social History Tobacco Use [...] 2:43 PM ESTProcedure(s): ARTHROCENTESIS,DRAIN/INJECT JOINT/BURSA Vanesa Marrero [id number] HISTORY: bilateral knee Pain Bilateral Knee INJECTION [...] EST documented in this encounter Care Teams Cell Changer Relationship Specialty Start Date End Date Bhumi Ventura APRN [address] [place] [address] PCP - General 08/23/13 11/13/14 documented as of this encounter
--- OUTSIDE RECORDS SUMMARY | 2024-04-20 00:23 | XMS_ITS | Encounter Summary ---
Author Organization [facility] Address One [facility] [address] [place] [address] Care Team Providers Care Crop Or Livestock Tenant Farmer Name Role Phone Bhumi Ventura APRN Primary Care Provider Encounter Details Date Type Department Care Team (Latest Contact Info) Description 08/23/2013 8:32 AM EST - 08/23/2013 12:37 PM [facility] Hospital Encounter XRay at [facility] [address] [place] [address] Bilateral knee pain Social History Tobacco Use [...] leg documented in this encounter Care Teams Crop Or Livestock Tenant Farmer Relationship Specialty Start Date End Date Bhumi Ventura APRN [address] [place] [address] PCP - General 08/23/13 11/13/14 documented as of this encounter
--- OUTSIDE RECORDS SUMMARY | 2024-04-20 00:23 | XMS_ITS | Encounter Summary ---
[place] [address] Care Team Providers Care Shift Coordinator Name Role Phone Bhumi Ventura APRN Primary Care Provider [phone] Encounter Details Date Type Department Care Team (Late st Contact Info) Description 09/13/2013 External [place] [address] Provider, Scanning Social History Tobacco Use Types [...] on filedocumented in this encounter Care Teams Shift Coordinator Relationship Specialty Start Date End Date Bhumi Ventura APRN [address] [place] [address] PCP - General 08/23/13 11/13/14 documented as of this encounter
--- OUTSIDE RECORDS SUMMARY | 2024-04-20 00:23 | XMS_ITS | Encounter Summary ---
Author Organization [facility] [place] [address] Care Team Providers Care Rubber Tire Curer Name Role Phone Jose Akhtar MD Primary Care Provider + Encounter Details Date Type Department Care Team (Late st Contact Info) Description 07/27/2013 Orders [place] [address] Sebastien Kathleen MD [facility] [place] [address] Bilateral knee pain (Primary Dx) Social History [...] knee joint effusions. No fracture detected. Sebastien Kathlene MD IMG DX ORDERABLES documented in this encounter Visit Diagnoses Diagnosis Bilateral knee pain- Primary Pain in joint, lower leg Bilateral knee pain Pain in joint, lower leg documented in this encounter Care Teams Rubber Tire Curer Relationship Specialty Start Date End Date Jose Akhtar MD [address] [place] [address] PCP - General 05/19/10 08/22/13 documented as of this encounter
--- OUTSIDE RECORDS SUMMARY | 2024-04-20 00:23 | XMS_ITS | Encounter Summary ---
Author [facility] [place] [address] Care Team Providers Care Enrobing Machine Operator Name Role Phone Bhumi Ventura APRN Primary Care Provider [phone] Reason for Referral * Surgical (Routine) - Closed Specialty Diagnoses / Procedures Referred By Contac t Referred To Contact Orthopaedics Diagnoses Bilateral knee pain Jim Ferreira PA [facility] [place] [address] [facility] [place] [address] [address] Referral ID Status Reason Start Date Expiration Date V isits Requested Visits Authorized [id number] Closed Consult, Test & Treat 08/23/2013 02/19/2014 1 1 * Psychiatric (Routine) - Complete - Unable to Contact Patient Specialty Diagnoses / Procedures Referred By Contac t Referred To Contact Psychiatry Diagnoses Bilateral knee pain Jim Ferreira PA [facility] [place] [address] Marychuy Wood I, PhD [facility] [place] [address] Referral ID Status Reason Start Date Expiration Date Visits Requested Visits Authorized [id number] Complete - Unable to Contact Patient Consult, Test & Treat 08/23/2013 02/19/2014 1 1 * Physical Therapy (Routine) - Closed by system - unspecified Specialty Diagnoses / Procedures Referred By Contac t Referred To Contact Physical Therapy Diagnoses Bilateral knee pain Jim Ferreira PA [facility] [place] [address] Referral ID Status Reason Start Date Expiration Date Visits Requested Visits Authorized [id number] Closed by system - unspecified Evaluate and Treat 08/23/2013 02/19/2014 20 20 Reason for Visit * Reason Comments Bilateral Knee Pain Encounter Details Date Type Department Care Team (Late st Contact Info) Description 08/23/2013 8:50 AM EST Office [place] [address] Sebastien Kathleen MD [facility] [place] [address] Jim Ferreira PA [facility] [place] [address] Bilateral knee pain (Primary Dx) Discharge Disposition: [...] bingeing on food 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 Smokes [...] leg documented in this encounter Care Teams Enrobing Machine Operator Relationship Specialty Start Date End Date Bhumi Ventura APRN [address] [place] [address] PCP - General 08/23/13 11/13/14 documented as of this encounter
--- NOTE | 2024-04-20 09:40 | DI.CTLCSR_ITS ---
Exam(s) CT CHEST LUNG CANCER SCREEN EXAM: CT CHEST LUNG CANCER SCREEN CLINICAL HISTORY: CURRENT SMOKER, F17.210, SCREENING FOR LUNG CANCER TECHNIQUE: Imaging Protocol: Axial computed tomography images with coronal and sagittal reformatted images were created and reviewed. Computer aided detection (CAD) was utilized. COMPARISON: CT CT CHEST/ABD/PEL W from 09/30/[address] CHEST LUNG CANCER SCREEN from 04/05/2023 FINDINGS: Examination limited by patient body habitus. Tracheobronchial tree: Patent where visualized. No bronchiectasis. Pulmonary parenchyma: No consolidation or dominant measurable mass. No architectural distortion. Lung Nodules: None. Mediastinum and Yanira: No dominant adenopathy or fluid collection. The esophagus is unremarkable. Thyroid gland: Unremarkable. Lymph nodes: Unremarkable. Pleura: No effusion or pneumothorax. Heart: The heart is not dilated. No coronary artery calcifications are seen. No pericardial effusion . Aorta: Thoracic aorta non-dilated.Atherosclerotic calcification is present. Upper abdomen: Unremarkable. Soft Tissues: Unremarkable. Bones: Within normal limits. Old healed right rib fractures. IMPRESSION: No suspicious pulmonary nodules. Lung RADS Cat 1 - Negative: No nodules and definitely benign nodules Lung-RADS 1.0 CATEGORIES: Category 0 - Prior chest CT exam(s) being located for comparison. Category 1 - Annual screening in 12 months. No nodules or definitely benign nodules. Category 2 - Annual screening in 12 months. Benign appearance. Nodules with low likelihood of becomin g active cancer. Category 3 - 6-month follow-up. Probably benign. Short-term follow-up suggested. Nodules with low lik elihood of becoming active cancer. Category 4A - 3-month follow-up and CT/PET if >8 mm in size. Suspicious finding. Findings which requi re additional testing. Category 4B - Findings which require additional testing and tissue sampling. Suspicious finding. Category 4X - Category 3 or 4 nodules with additional features or imaging findings that increases the suspicion of malignancy. Modifier S- Potentially clinically significant finding. (Non lung cancer) RADIATION DOSE DELIVERED: 100.53mGy.cm Total DLP 100.53mGy.cmTotal DLP DATA REPOSITORY: All CT scans at this facility are submitted to the National Radiology Data Registry (NRDR) Dose Index Registry (DIR) with the [employer] (ACR). RADIATION OPTIMIZATION: All CT scans at this facility use at least one of these dose optimization te chniques: automated exposure control; mA and/or kV adjustment per patient size (includes targeted exa ms where dose is matched to clinical indication); or iterative reconstruction.
== END 2024-04-20 00:38 ==
LOC: DI 00:18
PROVIDERS: PCP Physician Assistant; Visit Provider Physician Assistant
DX: F17.210 Nicotine dependence, cigarettes, uncomplicated (principal); Z12.2 Encounter for screening for malignant neoplasm of respiratory organs
CPT/HCPCS: 71271

== ENCOUNTER 2024-07-13 13:57 | Outpatient (REF) | payer MEDICARE, MEDICAID, SELFPAY ==
--- OUTSIDE RECORDS SUMMARY | 2024-07-13 14:04 | XMS_ITS | Encounter Summary ---
Author Organization [facility] Address [address] [place] [address] Care Team Providers Care Vest Busheler Name Role Phone Lynne Ramírez JAVID Primary Care Provider [phone] Mariaelena Garces TYRE RETREADER Unavailable [phone] Kyaw Ahn RPA Primary Care Provider [phone] Encounter Details Date Type Department Care Team (Late st Contact Info) Description 10/20/2021 Lab Requisition [facility] Pathology & Laboratory Medicine - [facility] [address] [place] [address] Outr Resulting Lab, Provider Social History Tobacco Use Types Packs/Day Years Used Date Smoking Tobacco: Some Days Cigarettes 0.3 25 Smokeless Tobacco: Never Alcohol Use Standard Drinks/Week Comments Not Currently 0 (1 standard drink = 0.6 oz pur e alcohol) Interpersonal Safety Answer Date Record ed Physically Hurt Never 01/27/2020 Verbally Threaten Not on file 01/27/2020 Comments No Sex and Gender Information Value Date Recorded Sex Assigned at Not on file Legal Sex Female 17:57 EST Gender Identity Female 06/15/2021 12:28 EST Sexual Orientation Not on file documented as of this encounter Functional Status * Because of a physical, mental, or emotional condition, does this person have difficulty doing errands alone such as visiting a doctor's office or shopping? Answer Date of Assessment Author Yes 05/22/2019 14:33 EST documented as of this encounter Mental Status * Because of a physical, mental, or emotional condition, does this person have serious difficulty concentrating, remembering, or making decisions? Answer Entry Date Author Yes 05/22/2019 14:33 EST documented in this encounter Plan of Treatment Upcoming Encounters Date Type Department Care Team (Late st Contact Info) Description 08/07/2024 11:00 EST Telemedicine [facility] Endocrinology [address] [place] [address] Brenna Carmona MD [address] [place] [address] [place] [phone] documented as of this encounter Procedures Procedure Name Priority Date/Time Associated Diagnosis Comments HOLD SST Today 10/19/2021 9:21 EDT HOLD SST Today 10/19/2021 9:21 EDT LYME AB Today 10/19/2021 9:21 EDT ANTI THYROGLOBULIN Today 10/19/2021 9:21 EDT T3, TOTAL Today 10/19/2021 9:21 EDT documented in this encounter Results * HOLD SST (10/19/2021 9:21 EDT) Hold Hold 10/20/2021 18:01 EDT [facility] Blood VENOUS BLOOD / Unknown 10/19/2021 9:21 EDT 10/20/2021 16:56 EDT us Provider Outr Resulting Lab LAB INFO SERVICE AND SUPPORT & PHONE RESULT Final Result [facility] [address] [place] [address] * HOLD SST (10/19/2021 9:21 EDT) Hold Hold 10/20/2021 18:01 EDT [facility] Blood VENOUS BLOOD / Unknown 10/19/2021 9:21 EDT 10/20/2021 16:56 EDT us Provider Outr Resulting Lab LAB INFO SERVICE AND SUPPORT & PHONE RESULT Final Result Performing Organization Address City/[facility]/ZIP Co de Phone Number [facility] [address] [place] [address] * T3, TOTAL (10/19/2021 9:21 EDT) Pathologist [facility] T3, Total 133 97 - 169 ng/dL 10/20/2021 17:47 EDT [facility] Blood VENOUS BLOOD / Unknown 10/19/2021 9:21 EDT 10/20/2021 16:53 EDT us Provider Outr Resulting Lab CHEMISTRY & BLOOD GA S ORDERABLES Final Result Performing Organization Address [facility] Co de Phone Number [facility] [address] [place] [address] * ANTI THYROGLOBULIN (10/19/2021 9:21 EDT) [facility] Anti-Thyroglob ulin <15 <=60 U/mL 10/20/2021 20:16 EDT [facility] Blood VENOUS BLOOD / Unknown 10/19/2021 9:21 EDT 10/20/2021 16:53 EDT us Provider Outr Resulting Lab CHEMISTRY & BLOOD GA S ORDERABLES Final Result Performing Organization Address [facility]/ZIP Co de Phone Number [facility] [address] [place] [address] * LYME AB (10/19/2021 9:21 EDT) [facility] Lyme Ab Negative Negative 10/21/2021 12:13 EDT [facility] Blood VENOUS BLOOD / Unknown 10/19/2021 9:21 EDT 10/20/2021 16:53 EDT us Provider Outr Resulting Lab IMMUNOLOGY AND SEROL OGY ORDERABLES Final Result [facility] [address] [place] [address] documented in this encounter Visit Diagnoses Not on filedocumented in this encounter Care Teams Vest Busheler Relationship Specialty Start Date End Date Lynne Ramírez FNP [address] [place] [address] PCP - General 03/12/19 09/04/23 yKaw Ahn RPA [address] [facility] ANTELMO [address] [place] [id number] PCP - General Family Medicine - Primary Care 09/05/23 Mariaelena Garces NP [address] [place] [phone] Nurse Practitioner Endocrinology, Diabetes and Metabolism 07/20/21 documented as of this encounter
--- OUTSIDE RECORDS SUMMARY | 2024-07-13 14:04 | XMS_ITS | Encounter Summary ---
Author Organization [facility] Address [address] [place] [address] Care Team Providers Care Senior Climate Advisor Name Role Phone Mariaelena Garces FREIGHT TALLIER Unavailable [phone] Kyaw Ahn RPA Primary Care Provider [phone] Reason for Visit * Reason Onset Date Comments Medication Management 09/05/2023 Encounter Details Date Type Department Care Team (Late st Contact Info) Description 09/05/[address] [facility] [place]inology [address] [place] [phone] Chayito Villegas, digital printer Management Social History Tobacco Use Types Packs/Day [...] 05/22/2019 14:33 EST documented in this encounter Miscellaneous Notes * Telephone Encounter - Chayito Villegas RN - 09/08/[address] Carmona has messaged patient and advised patient of new medication regimen. * Telephone Encounter - Chayito Villegas RN - 09/05/2023 1107 EDT Patient called to ask if her Synthroid needs to be adjusted based on TSH of 6.95. Lab results not received or scanned into patient's chart. Fax received from [facility] in [facility] and scanned into patient's chart. Sending to Dr. Carmona for guidance. documented in this encounter Plan of Treatment Upcoming Encounters Date Type Department Care Team (Late st Contact Info) Description 08/07/2024 11:00 EST Telemedicine [facility] Endocrinology [address] [place], [place] [address] Brenna Carmona MD [address] [phone] documented as of this encounter Visit Diagnoses Not on filedocumented in this encounter Care Teams Senior Climate Advisor Relationship Specialty Start Date End Date Kyaw Ahn RPA [address] [id number] PCP - General Family Medicine - Primary Care 09/05/23 Mariaelena Garces NP 130 [facility] [address] [place] [phone] Nurse Practitioner Endocrinology, Diabetes and Metabolism 07/20/21 documented as of this encounter
--- OUTSIDE RECORDS SUMMARY | 2024-07-13 14:04 | XMS_ITS | Encounter Summary ---
Author Organization [facility] Address [address] [place] [address] Care Team Providers Care City Constable Name Role Phone Mariaelena Garces SWEATBAND PERFORATOR Unavailable [phone] Kyaw Ahn RPA Primary Care Provider [phone] Reason for Visit * Reason Comments Follow-up Hypothyroidism Encounter Details Date Type Department Care Team (Latest Contact Info) Description 02/07/2024 11:30 EDT Office Visit [facility] Endocrinology [address] [place] [address] Brenna Carmona MD [address] [place] [address] [place] [phone] Postprocedural hypothyroidism (Primary Dx); History of [...] EDT documented in this encounter Functional Status * Because of [...] 05/22/2019 14:33 EST documented in this encounter Progress Notes * Dipti Burkett [...] Problem List Diagnosis Sleep apnea Morbid obesity ([facility]) Mechanical low back pain Lumbosacral spondylosis without myelopathy Depression Bilateral knee pain Tobacco dependence Liver lesion Fatigue Aneurysm ([facility]) History of thyroid cancer Myopathy Myofascial pain IFG (impaired fasting glucose) Hyperlipidemia, unspecified History of nicotine dependence NSAID long-term use Osteoarthritis of both knees Panic disorder Prurigo nodularis Spondylosis of lumbar spine Stage 3 chronic kidney disease ([facility]) Pain in joint, lower leg Postprocedural hypothyroidism [...] 0.5 Tablets by mouth 2 times daily. [id number]-Fish Oil 1,200 (144-216) mg capsule Take 2 [...] Imaging Results: Lab Results Component Value Date [id number] 10/19/2021 Assessment and Plan: - Hypothyroidism: [...] Contact Info) Description 08/07/2024 11:00 EST Telemedicine [facility] Endocrinology [address] [place] [address] Brenna Carmona MD 62 [facility] [address] [place] [phone] documented as of this encounter Results * THYROGLOBULIN, TUMOR MARKER, S (02/07/2024 12:29 EDT) Thyroglobulin Antibody, S <1.8 <1.8 IU/mL 02/08/2024 19:55 EDT [facility] Thyroglobulin, Tumor Marker <0.1 ng/mL 02/08/2024 19:55 EDT [facility] Comment: REFERENCE VALUE Athyrotic <0.1 Intact Thyroid <=33 Thyroglobulin Interpretation SEE NOTE 02/08/2024 19:55 EDT [facility] Comment: Thyroglobulin (Tg) levels must be interpreted [...] testing methods are immunoenzymatic assays manufactured by [employer] and performed on the [employer] DXI 800. Values obtained from different assay methods or kits may be different and cannot be used interchangeably. The results cannot be interpreted as absolute evidence for the presence or absence of malignant disease. Test Performed by: [facility] [address] [place] [id number] Linux Devops Engineer: Hardik Simon Ph.D.; CLIA# [id number] Blood VENOUS BLOOD / Unknown Venipuncture / Unknown 02/07/2024 12:29 EDT 02/07/2024 13:49 EDT us Brenna Griffin MD CHEMISTRY & BLOOD GAS ORDERABLES Final Result Performing Organization Address City/[facility]/ZIP Co de Phone Number [facility] [address] [place] [address] * (ABNORMAL) THYROID CASCADE (02/07/2024 12:29 EDT) TSH 7.38(H) 0.47 - 4.68 mIU/L 02/07/2024 14:[address] [facility] Blood VENOUS BLOOD / Unknown Venipuncture / Unknown 02/07/2024 12:29 EDT 02/07/2024 13:[address] [facility] - 02/07/2024 14:49 EDT NOTE: The results of this assay can be falsely lowered due to the consumption of Biotin. us Brenna Griffin MD CHEMISTRY & BLOOD GAS ORDERABLES Final Result Performing Organization Address City/[facility]/ZIP Co de Phone Number [facility] [address] [place] [address] documented in this encounter Visit Diagnoses Diagnosis Postprocedural hypothyroidism- Primary Postsurgical hypothyroidism History of thyroid cancer Personal history of malignant neoplasm of thyroid documented in this encounter Care Teams City Constable Relationship Specialty Start Date End Date Kyaw Ahn RPA [address] [place] [address] PCP - General Family Medicine - Primary Care 09/05/23 Mariaelena Garces NP 130 [facility] [address] [place] [phone] Nurse Practitioner Endocrinology, Diabetes and Metabolism 07/20/21 documented as of this encounter
--- OUTSIDE RECORDS SUMMARY | 2024-07-13 14:04 | XMS_ITS | Encounter Summary ---
Author Organization [facility] Address [address] [place] [address] Care Team Providers Care Breakfast Cook Name Role Phone Mariaelena Garces HEMATOLOGY SPECIALIST Unavailable [phone] Kyaw Ahn RPA Primary Care Provider [phone] Encounter Details Date Type Department Care Team (Late st Contact Info) Description 02/07/2024 12:25 EDT Phlebotomy Only [facility] - Outpatient Phlebotomy Drawing [address] [place] [address] Lab, [place] [facility] Op Phlebotomy Postprocedural hypothyroidism; History of [...] Contact Info) Description 08/07/2024 11:00 EST Telemedicine [facility] Endocrinology [address] [place] [address] Brenna Carmona MD [address] [place] [address] [address] [place] [phone] documented as of this encounter Procedures Procedure Name Priority Date/Time Associated Diagnosis Comments THYROGLOBULIN, TUMOR MARKER, S Routine 02/07/2024 12:29 EDT Postprocedural hypothyroidism History of thyroid cancer THYROID CASCADE Routine 02/07/2024 12:29 EDT Postprocedural hypothyroidism History of thyroid cancer T4 FREE Today 02/07/2024 12:29 EDT Postprocedural hypothyroidism History of thyroid cancer documented in this encounter Results * T4 FREE (02/07/2024 12:29 EDT) T4, Free 1.1 0.8 - 2.2 ng/dL 02/07/2024 15:[address] [facility] Blood VENOUS BLOOD / Unknown Venipuncture / Unknown 02/07/2024 12:29 EDT 02/07/2024 13:49 EDT us Brenna Griffin MD CHEMISTRY & BLOOD GAS ORDERABLES Final Result [facility] [address] [place] [address] * THYROGLOBULIN, TUMOR MARKER, S (02/07/2024 12:29 EDT) Thyroglobulin Antibody, S <1.8 <1.8 IU/mL 02/08/2024 19:55 EDT [facility] Thyroglobulin, Tumor Marker <0.1 ng/mL 02/08/2024 19:55 EDT [facility] Comment: REFERENCE VALUE Athyrotic <0.1 Intact Thyroid <=33 Thyroglobulin Interpretation SEE NOTE 02/08/2024 19:55 EDT [facility] Comment: Thyroglobulin (Tg) levels must be interpreted [...] testing methods are immunoenzymatic assays manufactured by [employer] and performed on the [employer] DXI 800. Values obtained from different assay methods or kits may be different and cannot be used interchangeably. The results cannot be interpreted as absolute evidence for the presence or absence of malignant disease. Test Performed by: [facility] - [address] [address] Assembler Flexible Leads: Hardik Simon Ph.D.; CLIA# [id number] Blood VENOUS BLOOD / Unknown Venipuncture / Unknown 02/07/2024 12:29 EDT 02/07/2024 13:49 EDT us Brenna Griffin MD CHEMISTRY & BLOOD GAS ORDERABLES Final Result [facility] [address] [place] [address] * (ABNORMAL) THYROID CASCADE (02/07/2024 12:29 EDT) [...] CHEMISTRY & BLOOD GAS ORDERABLES Final Result [facility] [address] [place], [place] [address] documented in this encounter Visit Diagnoses Diagnosis Postprocedural hypothyroidism Postsurgical hypothyroidism History of thyroid cancer Personal history of malignant neoplasm of thyroid documented in this encounter Care Teams Breakfast Cook Relationship Specialty Start Date End Date Kyaw Ahn RPA [address] [place] [address] PCP - General Family Medicine - Primary Care 09/05/23 Mariaelena Garces NP 130 [facility] [address] [place] [phone] Nurse Practitioner Endocrinology, Diabetes and Metabolism 07/20/21 documented as of this encounter
--- OUTSIDE RECORDS SUMMARY | 2024-07-13 14:04 | XMS_ITS | Encounter Summary ---
Author Organization [facility] Address [address] [place] [address] Care Team Providers Care Short Order Fry Cook Name Role Phone Lynne Ramírez JAVID Primary Care Provider [phone] Reason for Visit * Reason Onset Date Comments Results 08/25/2020 TSH Encounter Details Date Type Department Care Team (Late st Contact Info) Description 08/25/2020 Telephone [facility] Endocrinology [address] [place] [address] Brenna Darnell MD 130 [facility] [address] [place] [phone] Results (TSH) Social History Tobacco [...] 05/22/2019 14:33 EST documented in this encounter Ordered Prescriptions Prescription Sig Dispense Quantity Refills Last Filled Start Date End Date levothyroxine (SYNTHROID) 200 mcg tablet Take 1 Tab by mouth daily. Branded name necessary 90 Tab 1 08/25/2020 documented in this encounter Miscellaneous Notes * [...] Contact Info) Description 08/07/2024 11:00 EST Telemedicine [facility] Endocrinology [address] [place] [address] Brenna Carmona MD [address] [place] [phone] documented as of this encounter Visit Diagnoses Not on filedocumented in this encounter Discontinued Medications Medication Sig Discontinue Reason Start Date End Da te levothyroxine (SYNTHROID) 200 mcg tablet Take 200 mcg by mouth daily. Reorder 08/25/2020 documented as of this encounter Care Teams Short Order Fry Cook Relationship Specialty Start Date End Date Lynne Ramírez FNP [address] [place] [address] [place] [address] PCP - General 03/12/19 09/04/23 documented as of this encounter
--- OUTSIDE RECORDS SUMMARY | 2024-07-13 14:04 | XMS_ITS | Encounter Summary ---
Author Organization [facility] Address [address] [place] [address] Care Team Providers Care Psychiatric Aides Teacher Name Role Phone Mariaelena Garces ROSS FURNACE OPERATOR Unavailable [phone] Kyaw Ahn RPA Primary Care Provider [phone] Reason for Visit * Reason Onset Date Comments Medications Refill 12/26/2023 Encounter Details Date Type Department Care Team (Late st Contact Info) Description 12/26/2023 Refill [facility] Endocrinology [address] [place] [address] Samantha Mcguire, MORRIS [address] [place] [address] Medications Refill Social History Tobacco Use Types [...] Filled Start Date End Date levothyroxine (SYNTHROID) 25 mcg tablet Take one extra tablet of 25 mcg three times a week (she is to continue with 200 mcg every day) 12 Tablet 3 12/26/2023 4 documented in this encounter Plan of Treatment Upcoming Encounters Date Type Department Care Team (Late st Contact Info) Description 08/07/2024 11:00 EST Telemedicine [facility] Endocrinology [address] [place] [address] Brenna Carmona MD 62 [facility] [address] [place] [phone] documented as of this encounter Visit Diagnoses Not on filedocumented in this encounter Discontinued Medications Medication Sig Discontinue Reason Start Date End Da te levothyroxine (SYNTHROID) 25 mcg tablet Take one extra tablet of 25 mcg three times a week (she is to continue with 200 mcg every day) Reorder 09/05/2023 12/26/2023 documented as of this encounter Care Teams Psychiatric Aides Teacher Relationship Specialty Start Date End Date Kyaw Ahn RPA [address] [place] [address] [address] [place] [address] PCP - General Family Medicine - Primary Care 09/05/23 Mariaelena Garces NP 130 [facility] [address] [place] [phone] Nurse Practitioner Endocrinology, Diabetes and Metabolism 07/20/21 documented as of this encounter
--- OUTSIDE RECORDS SUMMARY | 2024-07-13 14:04 | XMS_ITS | Encounter Summary ---
Author Organization [facility] Address [address] [place] [address] Care Team Providers Care Steward/Stewardess Deck Name Role Phone Lynne Ramírez JAVID Primary Care Provider [phone] Reason for Visit * Reason Onset Date Comments Medications Refill 03/23/2021 Encounter Details Date Type Department Care Team (Late st Contact Info) Description 03/23/2021 Telephone [facility] [place] [address] [place] [address] Samantha Mcguire, MORRIS [address] [place] [address] Medications Refill Social History Tobacco Use Types [...] Branded name necessary 90 Tablet 2 03/23/2021 2 documented in this encounter Miscellaneous Notes * Telephone Encounter - Samantha Mcguire RN - 03/23/2021 1021 EDT Prescription faxed to pharmacy per order Dr Darnell documented in this encounter Plan of Treatment Upcoming Encounters Date Type Department Care Team (Late st Contact Info) Description 08/07/2024 11:00 EST Telemedicine [facility] Endocrinology [address] [place] [address] Brenna Carmona MD [address] [place] [phone] documented as of this encounter Visit Diagnoses Not on filedocumented in this encounter Discontinued Medications Medication Sig Discontinue Reason Start Date End Da te levothyroxine (SYNTHROID) 200 mcg tablet Take 1 Tablet by mouth daily. Branded name necessary Reorder 01/26/2021 03/23/2021 documented as of this encounter Care Teams Steward/Stewardess Deck Relationship Specialty Start Date End Date Lynne Ramírez F[place] [address] [place] [address] PCP - General 03/12/19 09/04/23 documented as of this encounter
--- OUTSIDE RECORDS SUMMARY | 2024-07-13 14:04 | XMS_ITS | Encounter Summary ---
Author Organization [facility] Address [address] [place] [address] Care Team Providers Care Mail Reader Name Role Phone Lynne Ramírez JAVID Primary Care Provider [phone] Reason for Visit * Reason Comments Thyroid Problem Encounter Details Date Type Department Care Team (Late st Contact Info) Description 01/26/2021 14:[address] [facility] [place] [address] [place], [place] [address] Brenna Darnell MD 130 [facility] [address] [place] [address] Hypothyroidism, postablative (Primary Dx); Medication [...] Branded name necessary 30 Tablet 1 01/26/2021 levothyroxine (SYNTHROID) 200 mcg tablet Take 1 Tablet by mouth daily. Branded name necessary 30 Tablet 1 01/26/2021 1 documented in this encounter Progress Notes * Charlene Ha RN - 01/26/2021 1400 EDT Post ablation hypothyroid TSH ordered Message sent via portal * Brenna Pope MD - 01/26/2021 1400 EDT [facility] [place] Visit Today's visit was provided through [...] Contact Info) Description 08/07/2024 11:[address] [facility] Endocrinology [address] [place] [address] Brenna Carmona MD [address] [place] [phone] documented as of this encounter Visit [...] documented as of this encounter Care Teams Mail Reader Relationship Specialty Start Date End Date Lynne Ramírez FNP [facility] [place] [address] PCP - General 03/12/19 09/04/23 documented as of this encounter
--- OUTSIDE RECORDS SUMMARY | 2024-07-13 14:04 | XMS_ITS | Encounter Summary ---
Author Organization [facility] Address [address] [place] [address] Care Team Providers Care Mental Health Aide Name Role Phone Lynne Ramírez JAVID Primary Care Provider Mariaelena Garces BREAK OUT WORKER Unavailable [phone] Reason for Visit * Reason Comments Thyroid Problem Encounter Details Date Type Department Care Team (Late st Contact Info) Description 01/27/2022 8:00 EDT Telemedicine [facility] Endocrinology [address] [place] [address] Brenna Darnell MD [address] [facility] [address] [place] [address] Hypothyroidism, postablative (Primary Dx); Medication [...] Branded name necessary 90 Tablet 2 01/27/2022 2 documented in this encounter Progress Notes * Charlene Ha RN - 01/27/2022 0800 EDT Hypo TSH ordered Message sent Letter mailed * Brenna Pope MD - 01/27/2022 0800 EDT [facility] Video Visit Today's visit was provided through [...] Contact Info) Description 08/07/2024 11:00 EST Telemedicine [facility] Endocrinology [address] [place], [place] [address] Brenna Carmona MD [address] [place] [address] [address] [place] [address] documented as of this encounter [...] may reflect changes made after this encounter. b complex vitamins capsule vitamin B complex capsule Take 1 capsule every week by oral route. added in this encounter Care Teams Mental Health Aide Relationship Specialty Start Date End Date Lynne Ramí[place] [address] PCP - General 03/12/19 09/04/23 Mariaelena Garces NP 130 [facility] 3 [place] [phone] Nurse Practitioner Endocrinology, Diabetes and Metabolism 07/20/21 documented as of this encounter
--- OUTSIDE RECORDS SUMMARY | 2024-07-13 14:04 | XMS_ITS | Encounter Summary ---
Author Organization [facility] Address [address] [place] [address] Care Team Providers Care Production Leader Name Role Phone Mariaelena Garces COUNTY HOME DEMONSTRATOR Unavailable [phone] Kyaw Ahn RPA Primary Care Provider [phone] Reason for Visit * Reason Onset Date Comments Medications Refill 04/30/2024 Encounter Details Date Type Department Care Team (Late st Contact Info) Description 04/30/2024 Telephone [facility] [place] [address] [place] [address] Samantha Mcguire, MORRIS [address] [place] [address] Medications Refill Social History Tobacco Use Types [...] Refills Last Filled Start Date End Date SYNTHROID 200 mcg tablet Take 1 Tablet by mouth daily. 90 Tablet 1 04/30/2024 05/07/2024 documented in this encounter Miscellaneous Notes * Telephone Encounter - Samantha Mcguire, RN - 04/30/2024 1623 EST Prescription faxed to pharmacy per order Dr Carmona. documented in this encounter Plan of Treatment Upcoming Encounters Date Type Department Care Team (Late st Contact Info) Description 08/07/2024 11:00 EST Telemedicine [facility] Endocrinology [address] [place], [place] [address] Brenna Carmona MD [address] [place] [address] documented as of this encounter Visit Diagnoses Not on filedocumented in this encounter Discontinued Medications Medication Sig Discontinue Reason Start Date End Da te SYNTHROID 200 mcg tablet TAKE ONE TABLET BY MOUTH EVERY DAY Reorder 11/24/2023 04/30/2024 documented as of this encounter Care Teams Production Leader Relationship Specialty Start Date End Date Kyaw Ahn RPA [address] [place] [address] PCP - General Family Medicine - Primary Care 09/05/23 Mariaelena Garces NP 130 [facility] [address] [place] [phone] Nurse Practitioner Endocrinology, Diabetes and Metabolism 07/20/21 documented as of this encounter
--- OUTSIDE RECORDS SUMMARY | 2024-07-13 14:04 | XMS_ITS | Encounter Summary ---
Author Organization [facility] Address [address] [place] [address] Care Team Providers Care Laboratory Director Name Role Phone MonicaLynne stark JAVID Primary Care Provider Mariaelena Garces SALES ENABLEMENT ANALYST Unavailable [phone] Kyaw Ahn RPA Primary Care Provider [phone] Reason for Visit * Reason Onset Date Comments Medications Refill 05/26/2023 Encounter Details Date Type Department Care Team (Late st Contact Info) Description 05/26/2023 Refill [facility] [place] [address] [place] [address] Samantha Mcguire, MORRIS [address] [place] [address] Medications Refill Social History Tobacco Use Types [...] Branded name necessary 90 Tablet 1 05/26/2023 4 documented in this encounter Miscellaneous Notes * Telephone Encounter - Samantha Mcguire, RN - 05/26/2023 0909 EST Prescription faxed to pharmacy per order Mariaelena Garces Due for appointment 05/19/23 documented in this encounter Plan of Treatment Upcoming Encounters Date Type Department Care Team (Late st Contact Info) Description 08/07/2024 11:00 EST Telemedicine [facility] Endocrinology [address] [place] [address] Brenna Carmona MD [address] [facility] [address] [place] [address] documented as of this encounter Visit Diagnoses Not on filedocumented in this encounter Discontinued Medications Medication Sig Discontinue Reason Start Date End Da te levothyroxine (SYNTHROID) 200 mcg tablet Take 1 Tablet by mouth daily. Branded name necessary Reorder 05/19/2022 05/26/2023 documented as of this encounter Care Teams Laboratory Director Relationship Specialty Start Date End Date Lynne Ramírez FNP [address] [facility] [place], [place] [id number] PCP - General 03/12/19 09/04/23 Kyaw Ahn RPA [address] [facility] [address] [place], [place] [id number] PCP - General Family Medicine - Primary Care 09/05/23 Mariaelena Garces NP [address] [place] [address] Nurse Practitioner Endocrinology, Diabetes and Metabolism 07/20/21 documented as of this encounter
--- OUTSIDE RECORDS SUMMARY | 2024-07-13 14:04 | XMS_ITS | Encounter Summary ---
Author Organization [facility] Address [address] [place] [address] Care Team Providers Care Medical Underwriter Name Role Phone Mariaelena Garces SWITCH FOREMAN Unavailable [phone] Kyaw Ahn RPA Primary Care Provider [phone] Encounter Details Date Type Department Care Team (Late st Contact Info) Description 09/05/2023 Orders Only [facility] Endocrinology [address] [place], [place] [phone] Brenna Carmona MD [employer] [address] [place] [address] Social History Tobacco Use Types [...] mcg every day) 12 Tablet 3 09/05/2023 4 documented in this encounter Plan of Treatment Upcoming Encounters Date Type Department Care Team (Late st Contact Info) Description 08/07/2024 11:00 EST Telemedicine [facility] Endocrinology [address] [place] [address] Brenna Carmona MD [address] [facility] [address] [place] [phone] documented as of this encounter Visit Diagnoses Not on filedocumented in this encounter Care Teams Medical Underwriter Relationship Specialty Start Date End Date Kyaw Ahn RPA [address] [facility] [address] [place] [address] PCP - General Family Medicine - Primary Care 09/05/23 Mariaelena Garces NP 130 [facility] [address] [place] [phone] Nurse Practitioner Endocrinology, Diabetes and Metabolism 07/20/21 documented as of this encounter
--- OUTSIDE RECORDS SUMMARY | 2024-07-13 14:04 | XMS_ITS | Encounter Summary ---
Author Organization [facility] Address [address] [place] [address] Care Team Providers Care Senior Specialist Name Role Phone Lynne Ramírez JAVID Primary Care Provider [phone] Mariaelena Garces CHIEF HOSPITAL ADMINISTRATOR Unavailable [phone] Kyaw Ahn RPA Primary Care Provider [phone] Encounter Details Date Type Department Care Team (Late st Contact Info) Description 11/04/2021 Lab Requisition [facility] Pathology & Laboratory Medicine - [facility] [address] [place] [address] Outr Resulting Lab, Provider Social History Tobacco [...] Contact Info) Description 08/07/2024 11:00 EST Telemedicine [facility] Endocrinology [address] [place] [address] Brenna Carmona MD [address] [place] [address] [place] [phone] documented as of this encounter Procedures Procedure Name Priority Date/Time Associated Diagnosis Comments ZZCOVID-19 TEST [facility] PCR Today 11/03/2021 13:15 EDT COVID-19 TESTING Routine 11/03/2021 13:1 5 EDT documented in this encounter Results * COVID-19 TEST [facility] PCR (11/03/2021 13:15 EDT) Swab 11/03/2021 13:1 5 EDT 11/04/2021 16:37 EDT us Provider Outr Resulting Lab MICROBIOLOGY - GENER AL ORDERABLES Final Result [facility] [address] [place] [address] * COVID-19 TESTING (11/03/2021 13:15 EDT) COVID-19 rt-PCR Result Negative Negative 11/05/2021 11:27 EDT [facility] Comment: This test has [...] was performed using the nasreen SARS-CoV-2 assay ([employer] on the Nasreen 6800 System Performing Lab Nasreen 6800 [facility] 11/05/2021 11:27 EDT [facility] Swab 11/03/2021 13:1 5 EDT 11/04/2021 16:37 EDT us Provider Outr Resulting Lab MICROBIOLOGY - GENER AL ORDERABLES Final Result [facility] [address] [place] [address] documented in this encounter Visit Diagnoses Not on filedocumented in this encounter Care Teams Senior Specialist Relationship Specialty Start Date End Date Lynne Ramírez FNP [address] [place] [address] PCP - General 03/12/19 09/04/23 Kyaw Ahn RPA [address] [place] [address] PCP - General Family Medicine - Primary Care 09/05/23 Mariaelena Garces NP [address] [place] [address] [address] [place] [phone] Nurse Practitioner Endocrinology, Diabetes and Metabolism 07/20/21 documented as of this encounter
--- OUTSIDE RECORDS SUMMARY | 2024-07-13 14:04 | XMS_ITS | Encounter Summary ---
Author Organization [facility] Address [address] [place] [address] Care Team Providers Care Oracle R12 Developer Name Role Phone Mariaeelna Garces INVENTORY CONTROL SPECIALIST Unavailable [phone] Kyaw Ahn RPA Primary Care Provider [phone] Reason for Visit * Reason Comments Medications Refill Encounter Details Date Type Department Care Team (Late st Contact Info) Description 11/24/2023 Refill [facility] Endocrinology [address] [place] [address] Mariaelena Garces INVENTORY CONTROL SPECIALIST [address] [facility] [address] [place] [address] Medications Refill Social History Tobacco [...] Date End Date SYNTHROID 200 mcg tablet TAKE ONE TABLET BY MOUTH EVERY DAY 90 Tablet 1 11/24/2023 04/30/2024 documented in this encounter Miscellaneous Notes * Telephone Encounter - Christine Mcdaniels RN - 11/24/2023 0941 EDT Requesting refill synthroid. Up to date with labs and ofc visits. documented in this encounter Plan of Treatment Upcoming Encounters Date Type Department Care Team (Late st Contact Info) Description 08/07/2024 11:00 EST Telemedicine [facility] Endocrinology [address] [place] [address] Brenna Carmona MD [address] [facility] [address] [place] [phone] documented as of this encounter Visit Diagnoses Not on filedocumented in this encounter Discontinued Medications Medication Sig Discontinue Reason Start Date End Da te levothyroxine (SYNTHROID) 200 mcg tablet Take 1 Tablet by mouth daily. Branded name necessary 05/26/2023 11/24/2023 documented as of this encounter Care Teams Oracle R12 Developer Relationship Specialty Start Date End Date Kyaw Ahn RPA [address] [facility] [address] [place] [address] PCP - General Family Medicine - Primary Care 09/05/23 Mariaelena Garces NP 130 [facility] [address] [place] [phone] Nurse Practitioner Endocrinology, Diabetes and Metabolism 07/20/21 documented as of this encounter
--- OUTSIDE RECORDS SUMMARY | 2024-07-13 14:04 | XMS_ITS | Encounter Summary ---
Author Organization [facility] Address [address] [place] [address] Care Team Providers Care Architecture Intern Name Role Phone Mariaelena Garces SENIOR COMPLIANCE OFFICER Unavailable [phone] Kyaw Ahn RPA Primary Care Provider [phone] Encounter Details Date Type Department Care Team (Late st Contact Info) Description 02/07/2024 Orders Only [facility] Endocrinology [address] [place], [place] [phone] Brenna Carmona MD [employer] [address] [place] [address] Social History Tobacco Use Types [...] Last Filled Start Date End Date SYNTHROID 50 mcg tablet Take 1 Tablet by mouth daily. Take one tablet every day along with the 200 mcg tab (total daily dose 250 mcg) 90 Tablet 3 02/07/2024 documented in this encounter Plan of Treatment Upcoming Encounters Date Type Department Care Team (Late st Contact Info) Description 08/07/2024 11:00 EST Telemedicine [facility] Endocrinology [address] [place] [address] Brenna Carmona MD [address] [facility] [address] [place] [phone] documented as of this encounter Visit Diagnoses Not on filedocumented in this encounter Discontinued Medications Medication Sig Discontinue Reason Start Date End Da te levothyroxine (SYNTHROID) 25 mcg tablet Take one extra tablet of 25 mcg three times a week (she is to continue with 200 mcg every day) 12/26/2023 02/07/2024 documented as of this encounter Care Teams Architecture Intern Relationship Specialty Start Date End Date Kyaw Ahn RPA [address] [place] [address] [address] [place] [address] PCP - General Family Medicine - Primary Care 09/05/23 Mariaelena Garces NP 130 [facility] [address] [place] [phone] Nurse Practitioner Endocrinology, Diabetes and Metabolism 07/20/21 documented as of this encounter
--- OUTSIDE RECORDS SUMMARY | 2024-07-13 14:04 | XMS_ITS | Continuity of Care Document ---
Author Organization [facility] Ambulatory Clinics Address [address] [place] [address] Care Team Providers Care Corporate Investigator Name Role Phone PRAVEENA LOPEZ RPA Primary Care Physician Encounter [facility] NBR [id number] Date(s): 05/01/24 - 05/01/24 [facility] Ambulatory Clinics [address] [place] [address]- [place] Encounter Diagnosis Low back pain(Discharge Diagnosis) - 05/01/24 Lumbar spondylosis(Discharge Diagnosis) - 05/01/24 Facet arthropathy, lumbar(Discharge Diagnosis) - 05/01/24 Musculoskeletal back pain(Discharge Diagnosis) - 05/01/24 Discharge Disposition: Home or Self Care Attending Physician: Kathleen Sethi DO Allergies, Adverse Reactions, Alerts Substance Criticality Severity Reaction Reaction Severity Status gabapentin Unable to assess criticality Unknown Active NSAIDs Unable to assess criticality Unknown Active Assessment and Plan Extracted from: Title:[facility] Office Visit Note - Pain Management Author:Kathleen Sethi DO Date:05/01/24 Facet arthropathy, lumbar??M 47.816,??Lumbar spondylosis??M47.816 Low back pain??M54.50 Musculoskeletal back pain??M54.9 ?? Vanesa is here for evaluation of low back pain, which has been present for 20 years.?? There is no radiation to the lower extremities and no??associated lower extremity numbness/tingling or weakness.?? She was only able to stand briefly during the visit today??because she does not have her walker with her and she is unable to ambulate??without her walker.?? The area of most significant tenderness appears to be over the sacroiliac joints bilaterally.?? Motor strength testing and sensation is intact.?? Achilles reflexes are??intact and symmetric.?? She??has had??relief with prior??lumbar??radiofrequency ablations.?? The area of pain that is most tender today appears to be??slightly more distal over the sacroiliac joints. Since she is unable to??ambulate in exam room today, she would likely have significant difficulty transitioning to the procedural table for interventional procedures that require x-ray guidance. She states her mobility is more limited now that when she had the lumbar RFA.?? Reviewed the option to trial trigger point injections to the region of the sacroiliac joints since this appears to be the most bothersome area of pain.??Risks and potential benefits were reviewed.?? She would like to move forward with the injection. Order placed. ?? X-rays of the lumbar spine were completed after the visit today on 05/01/24. X- ray images??were independently interpreted and agree with radiology report. ??X-rays show??degenerative disc change and facet arthropathy.?? There is a mild scoliotic curvature. Called patient at home and results reviewed with her by phone today at about 1553. ?? Follow up: for TPIs ? Medications Advair Diskus 250 mcg-50 mcg inhalation powder INHALE 2 PUFFS BY MOUTH TWO TIMES A DAY DIRECTED Start Date: 10/01/22 Status: Ordered Albuterol (Eqv-Proventil HFA) 90 mcg/inh inhalation aerosol INHALE 2 PUFFS EVERY 4 TO 6 HOURS NEEDED FOR SHORTNESS OF BREATH COUGH WHEEZING Start Date: 10/01/22 Status: Ordered ALPRAZolam 0.5 mg oral tablet 0.5 mg = 1 tab, Oral, PRN as needed for anxiety, 0 Refill(s) Start Date: 05/01/24 Status: Ordered ALPRAZolam 3 mg oral tablet, extended release TAKE 1 TABLET BY MOUTH TWICE DAILY Start Date: 10/01/22 Status: Ordered clomiPRAMINE 50 mg oral capsule TAKE FOUR CAPSULES BY MOUTH AT BEDTIME WITH DINNER Start Date: 10/01/22 Status: Ordered levothyroxine 50 mcg (0.05 mg) oral capsule 50 mcg = 1 cap, Oral, Daily, # 30 cap, 0 Refill(s) Start Date: 05/01/24 Status: Ordered naltrexone See Instructions, 25mg once daily, 0 Refill(s) Start Date: 05/01/24 Status: Ordered omeprazole 20 mg oral delayed release capsule TAKE ONE CAPSULE BY MOUTH EVERY DAY Start Date: 10/01/22 Status: Ordered Synthroid 200 mcg (0.2 mg) oral tablet TAKE ONE TABLET BY MOUTH ONCE DAILY Start Date: 10/01/22 Status: Ordered Vitamin D3 1000 intl units oral capsule TAKE THREE CAPSULES BY MOUTH EVERY DAY Start Date: 10/01/22 Status: Ordered Wellbutrin 100 mg =, Oral, BID, 0 Refill(s) Start Date: 05/01/24 Status: Ordered Problem List Condition Confirmation Course Effective Dates Status H ealth Status Informant Musculoskeletal pain Confirmed Active Vital Signs Most recent to oldest [Reference Range]: 1 Temperature Temporal Artery [36-38 Deg C ] 35.8 Deg C *LOW* (05/01/24 9:29 AM) Peripheral Pulse Rate [60-100 bpm] 80 bp m (05/01/24 9:29 AM) Respiratory Rate [12-24 br/min] 20 br/mi n (05/01/24 9:29 AM) Blood Pressure [90-120/60-80 mmHg] 135/7 9mmHg *HI* (05/01/24 9:29 AM) Mean Arterial Pressure, Cuff [65-140 mmH g] 98 mmHg (05/01/24 9:29 AM) Weight 177.0 kg (05/01/24 9:29 AM) Weight Measured (lbs) 390.218 lb (05/01/24 9:29 AM) Weight Dosing 177.000 kg (05/01/24 9:29 AM) [place] Body Weight Calculated 45.5 kg (05/01/24 9:29 AM) Height 65 cm (05/01/24 9:29 AM) Height/Length Measured (inches) 25.59 in (05/01/24 9:29 AM) BSA Measured 1.79 m2 (05/01/24 9:29 AM) Body Mass Index 418.93 kg/m2 (05/01/24 9:29 AM) Social History Social History Type Response Tobacco Current everyday tob acco user Tobacco Use:. 6 cigarettes per day per day. Sex Sex Representation Female (finding) Physician Outpatient Note * Kathleen Sethi, DO: PERFORM, MODIFY, MODIFY, MODIFY, MODIFY, MODIFY, MODIFY, MODIFY Event Display: Office Clinic Note Physician Authored Date: [id number] VANESA COOPER :1965 Age:59 years Sex:Female Visit Date:05/01/2024 Primary Care Physician: PRAVEENA LOPEZ RPA Chief Complaint severe lower back pain History of Present Illness ?? Vanesa is here for evaluation of back pain which has been ongoing for??15 to 20 years, gradual in onset. ??The low back pain is described as aching in quality. ??She also has chronic??knee pain which is more of??a stabbing discomfort. ??She is currently in a wheelchair and states that she is unable to ambulate without the assistance of a walker.?? Pain level is rated 6/10 with sitting. ??Her pain often worsens with??standing, walking.?? Laying down provides slight relief. ??She takes [id number] mg??twice daily for pain. She also uses cannabis and Aspercreme. ??She reports that she has had 3 lumbar RFA's in the past including 2 at [facility] and 1 [facility] with??significant relief for about 8 months.?? She participated in physical therapy in 2019 and reports that she does the home exercises??on a daily basis.?? Gabapentin and NSAIDs are listed on her allergies. ??She states that??NSAIDs in the past caused kidney??disease.?? She has not tried muscle relaxant. ??She denies any recent falls. ? Review of Systems Constitutional:?No fevers/chills Respiratory:?No shortness of breath Cardiovascular:?No Chest pain Gastrointestinal:?No bowel dysfunction - alternates constipation/diarrhea - will be getting colonoscopy soon at [facility] per her report Genitourinary:?No bladder dysfunction Musculoskeletal:??Positive for back pain Neurological: No new weakness, no new numbness/tingling Physical Exam Vitals & Measurements T:??35.8?C ??(Temporal Artery)?? HR:??80??(Peripheral)?? RR:??20?? BP:??135/79?? SpO2:??95%?? HT:??65??cm?? WT:??177.0??kg?? BMI:??418.93?? Pain Score:??6?? BSA:??1.79? General: no acute distress. ??She is seated in a wheelchair during the visit today. morbidly obese body habitus HEENT: Facial movements symmetric Resp: Breathing comfortably, unlabored respirations Lumbar:??She briefly stood??during the visit using the exam table??for support since she does not have her walker with her.?There is mild tenderness at the lumbosacral junction and over the bilateral sacroiliac joints. Neuro: Motor:Strength is 5 out of 5 lower extremities bilaterally HF KE AD PF Sensation:Intact to light touch lower extremities bilaterally Reflexes: Unable to obtain knee reflexes,??Achilles reflexes are 2+ bilaterally.?No clonus. Provocative tests: Seated straight leg raise??appears negative SI Joints: tenderness to palpation over bilateral SI joints. Unable to perform other SI joint testsdue to limited mobility, inability to transfer to exam table. Gait: She declines ambulation??as she does not have her walker with her today Assessment/Plan Facet arthropathy, lumbar??M47.816,??Lumbar spondylosis??M47.816 Low back pain??M54.50 Musculoskeletal back pain??M54.9 ?? Vanesa is here for evaluation of low back pain, which has been present for 20 years.?? There is no radiation to the lower extremities and no??associated lower extremity numbness/tingling or weakness.?? She was only able to stand briefly during the visit today??because she does not have her walker with her and she is unable to ambulate??without her walker.?? The area of most significant tenderne ss appears to be over the sacroiliac joints bilaterally.?? Motor strength testing and sensation is intact.?? Achilles reflexes are??intact and symmetric.?? She??has had??relief with prior??lumbar??radiofrequency ablations.?? The area of pain that is most tender today appears to be??slightly more distal over the sacroiliac joints. Since she is unable to??ambulate in exam room today, she would likely have significant difficulty transitioning to the procedural table for interventional procedures that require x-ray guidance. She states her mobility is more limited now that when she had the lumbarRFA.?? Reviewed the option to trial trigger point injections to the region of the sacroiliac jointssince this appears to be the most bothersome area of pain.??Risks and potential benefits were reviewed.?? She would like to move forward with the injection. Order placed. ?? X-rays of the lumbar spine were completed after the visit today on 05/01/24. X- ray images??were independently interpreted and agree with radiology report. ??X- rays show??degenerative disc change and facet arthropathy.?? There is a mild scoliotic curvature. Called patient at home and results reviewedwith her by phone today at about 1553. ?? Follow up: for TPIs Images X-ray lumbar spine images from today 05/01/24 independently interpreted and agree with radiology report Problem List/Past Medical History Ongoing Musculoskeletal pain Historical No qualifying data Medications Advair Diskus 250 mcg-50 mcg inhalation powder Albuterol (Eqv-Proventil HFA) 90 mcg/inh inhalation aerosol ALPRAZolam 0.5 mg oral tablet, 0.5 mg= 1 tab, Oral, PRN ALPRAZolam 3 mg oral tablet, extended release clomiPRAMINE 50 mg oral capsule levothyroxine 50 mcg (0.05 mg) oral capsule, 50 mcg= 1 cap, Oral, Daily naltrexone, See Instructions omeprazole 20 mg oral delayed release capsule Synthroid 200 mcg (0.2 mg) oral tablet Vitamin D3 1000 intl units oral capsule Wellbutrin, 100 mg, Oral, BID Allergies NSAIDs gabapentin Social History Electronic Cigarette/Vaping Electronic Cigarette Use: Never. Tobacco Current everyday tobacco user Tobacco Use:. 6 cigarettes per day per day. Electronically Signed on 05/01/2024 16:56 EST Kathleen Sethi DO Patient Care team information Care Team Personnel Name: PRAVEENA LOPEZ RPA Position: No Access Member Role: Primary Care Physician Address: [address] [place] [address] Care Team Related Persons Name: HANNAH COOPER Insurance Providers Guarantor name: VANESA COOPER [employer] Plan Information #: 1 Payer: [facility] Member Number: [id number] Policy Number: NA Health Plan Information #: 2 Payer: [place] Member Number: [id number] Policy Number: NA
--- OUTSIDE RECORDS SUMMARY | 2024-07-13 14:04 | XMS_ITS | Encounter Summary ---
Author Organization [facility] Address [address] [place] [address] Care Team Providers Care Formulation Technician Name Role Phone Mariaelena Garces WARDROBE MANAGER Unavailable [phone] Kyaw Ahn RPA Primary Care Provider [phone] Reason for Visit * Reason Onset Date Comments Medications Refill 05/07/2024 Encounter Details Date Type Department Care Team (Late st Contact Info) Description 05/07/2024 Telephone [facility] - [facility] Endocrinology [address] [place] [address] Chayito Villegas RN Medications Refill Social History Tobacco Use [...] Tablet by mouth daily. 90 Tablet 1 05/07/2024 documented in this encounter Miscellaneous Notes * Telephone Encounter - Chayito Villegas, RN - 05/07/2024 1757 EST Visits up to date; refilled documented in this encounter Plan of Treatment Upcoming Encounters Date Type Department Care Team (Late st Contact Info) Description 08/07/2024 11:00 EST Telemedicine [facility] - [facility] Endocrinology [address] [place] [address] Brenna Carmona MD [address] [facility] [address] [place] [phone] documented as of this encounter Visit Diagnoses Not on filedocumented in this encounter Discontinued Medications Medication Sig Discontinue Reason Start Date End Da te SYNTHROID 200 mcg tablet Take 1 Tablet by mouth daily. Reorder 04/30/2024 05/07/2024 documented as of this encounter Care Teams Formulation Technician Relationship Specialty Start Date End Date Kyaw Ahn RPA [address] [facility] [address] [place] [address] PCP - General Family Medicine - Primary Care 09/05/23 Mariaelena Garces NP [address] [facility] [address] [place] [phone] Nurse Practitioner Endocrinology, Diabetes and Metabolism 07/20/21 documented as of this encounter
--- OUTSIDE RECORDS SUMMARY | 2024-07-13 14:04 | XMS_ITS | Referral Summary ---
Author Organization [facility] Address [address] [place] [address] Care Team Providers Care Application Penetration Tester Name Role Phone Mariaelena Garces NP Unavailable [phone] Kyaw Ahn RPA Primary Care Provider [phone] Encounters Date Type Department Care Team Description 05/07/2024 Telephone [facility] Endocrinology [address] [place] [address] Chayito Villegas RN Medications Refill 04/30/2024 Telephone [facility] Endocrinology [address] [place] [address] Samantha Mcguire RN Medications Refill from Last 3 Months Allergies Active Allergy Reactions Criticality Noted Date Comments Diclofenac Other (See Comments) High 12/19/2017 Kidney failure Gabapentin Other (See Comments) 05/22/2019 Unsure Nsaids (Non-Steroidal Anti-Inflammatory Drug) Other (See Comments) High 05/22/2019 Kidney failure Medications ALPRAZolam (XANAX XR) 3 mg XR tablet [...] 2 Caps by mouth daily. Active folic acid/multivit-m in/lutein (CENTRUM SILVER ORAL) Take 1 Tab by mouth. Active Mezqu-9-CDN-EPA -Fish Oil 1,200 (144-216) mg capsule Take 2 Caps by mouth. Active Psyllium Husk 0.52 gram capsule Take 4 Tabs by mouth daily. Active b complex vitamins capsule vitamin B complex capsule Take 1 capsule every week by oral route. Active L.acid/L.casei/ B.bif/B.ashley/FOS (PROBIOTIC BLEND ORAL) Take by mouth. Active naltrexone (REVIA) 50 mg tablet Take 0.5 Tablets by mouth 2 times daily. Active buPROPion (WELLBUTRIN SR) 100 mg SR tablet Take 1 Tablet by mouth 2 times daily. 07/29/2023 Active VITAMIN D3 25 mcg (1,000 unit) capsule Take 3 Capsules by mouth daily. 12/27/2022 Active SYNTHROID 50 mcg tablet Take 1 Tablet by mouth daily. Take one tablet every day along with the 200 mcg tab (total daily dose 250 mcg) 90 Tablet 3 02/07/2024 Active SYNTHROID 200 mcg tablet Take 1 Tablet by mouth daily. 90 Tablet 1 05/07/2024 Active Active Problems Problem Noted Date Diagnosed Date Postprocedural hypothyroidism 07/23/2021 Myopathy 01/26/2021 Osteoarthritis of both knees 01/26/2021 Tobacco dependence 04/22/2020 Liver lesion 04/22/2020 Fatigue 04/22/2020 Aneurysm ([facility]) 04/22/2020 History of thyroid cancer 04/22/2020 Stage 3 chronic kidney disease ([facility]) 017 Myofascial pain 09/07/2016 NSAID long-term use 09/07/2016 IFG (impaired fasting glucose) 11/12/2015 Hyperlipidemia, unspecified 11/12/2015 Prurigo nodularis 10/03/2015 History of nicotine dependence 03/21/2014 Pain in joint, lower leg 03/21/2014 Lumbosacral spondylosis without myelopathy 11/21 Spondylosis of lumbar spine 10/10/2013 Mechanical low back pain 09/12/2013 Sleep apnea 08/23/2013 Morbid obesity ([facility]) 08/23/2013 Depression 08/23/2013 Bilateral knee pain [...] Index 62.94 02/07/2024 1133 EDT Functional Status * Because of a physical, mental, or emotional condition, does this person have difficulty doing errands alone such as visiting a doctor's office or shopping? Answer Date of Assessment Author Yes 05/22/2019 14:33 EST Mental Status * Because of a physical, mental, or emotional condition, does this person have serious difficulty concentrating, remembering, or making decisions? Answer Entry Date Author Yes 05/22/2019 14:33 EST Plan of Treatment Upcoming Encounters Date Type Department Care Team (Late st Contact Info) Description 08/07/2024 11:00 EST Telemedicine [facility] Endocrinology [address] [place] [address] Brenna Carmona MD [address] [place] [phone] Insurance MEDICAID [place] [facility] MEDICARE MEDICAID [place] [employer] MEDICARE Care Teams Application Penetration Tester Relationship Specialty Start Date End Date Kyaw Ahn RPA [address] [place] [phone] PCP - General Family Medicine - Primary Care 09/05/23 Mariaelena Garces NP [address] [place] [phone] Nurse Practitioner Endocrinology, Diabetes and Metabolism 07/20/21
--- OUTSIDE RECORDS SUMMARY | 2024-07-13 14:04 | XMS_ITS | Encounter Summary ---
Author Organization [facility] Address [address] [place] [address] Care Team Providers Care Social Media Executive Name Role Phone Lynne Ramírez JAVID Primary Care Provider Mariaelena Garces PROP ATTENDANT Unavailable [phone] Reason for Visit * Reason Comments Thyroid Problem Encounter Details Date Type Department Care Team (Late st Contact Info) Description 07/29/2021 10:00 EST Telemedicine [facility] [place] [address] [place] [address] Brenna Darnell MD [address] [facility] [address] [place] [phone] Hypothyroidism, postablative (Primary Dx); History [...] EST documented in this encounter Functional Status * [...] Refills Last Filled Start Date End Date liothyronine (CYTOMEL) 5 mcg tablet Take 1 Tablet by mouth daily. Take 1 tablet Tuesday, Tue, Tuesday. 12 Tablet 1 07/29/2021 09/25/2021 documented in this encounter Progress Notes * Charlene Ha RN - 07/29/2021 1000 EST Postablative hypothyroid TSH ordered. Message sent via portal TSH in scanned documents * Brenna Pope MD - 07/29/2021 1000 EST [facility] Video Visit Today's visit was provided through [...] Contact Info) Description 08/07/2024 11:00 EST Telemedicine [facility] Endocrinology [address] [place] [address] Brenna Carmona MD [address] [place] [phone] documented as of this encounter Visit Diagnoses Diagnosis Hypothyroidism, postablative- Primary Other postablative hypothyroidism History of thyroid cancer Personal history of malignant neoplasm of thyroid documented in this encounter Care Teams Social Media Executive Relationship Specialty Start Date End Date Lynne Ramírez FNP [address] [place] [address] PCP - General 03/12/19 09/04/23 Mariaelena Garces NP [address] [place] [phone] Nurse Practitioner Endocrinology, Diabetes and Metabolism 07/20/21 documented as of this encounter
--- OUTSIDE RECORDS SUMMARY | 2024-07-13 14:04 | XMS_ITS | Encounter Summary ---
Author Organization [facility] Address [address] [place] [address] Care Team Providers Care Data Coder Operator Name Role Phone Lynne Ramírez JAVID Primary Care Provider [phone] Mariaelena Goins EXTENSION CLERK Unavailable [phone] Reason for Visit * Reason Onset Date Comments Thyroid Problem 12/25/2021 Encounter Details Date Type Department Care Team (Late st Contact Info) Description 12/25/2021 Telephone [facility] Endocrinology [address] [place] [address] Phoebe Lew RN Thyroid Problem Social History [...] Last Filled Start Date End Date SYNTHROID 25 mcg tablet Take 0.5 Tablets by mouth daily. In addition to 200 mcg tabs daily. 45 Tablet 2 12/25/2021 2 documented in this encounter Miscellaneous Notes * Addendum Note - Mariaelena Goins NP - 12/25/2021 1114 EDTAddended by: MARIAELENA GOINS on: 12/25/2021 11:14 Modules accepted: Orders * Telephone Encounter - Mariaelena Goins NP - 12/25/2021 1108 EDT Sent Material Mix message. * Telephone Encounter - Phoebe Lew RN - 12/25/2021 0960 EDT States she had labs done at [facility] and tsh was high- taking daily on an empty stomach- no vitamins around taking med. No recent illness- taking brand synthroid and liothyronine as med list states- whatto do with dose ? - can respond via [employer] documented in this encounter Plan of Treatment Upcoming Encounters Date Type Department Care Team (Late st Contact Info) Description 08/07/2024 11:00 EST Telemedicine [facility] - [facility] Endocrinology [address] [place] [address] Brenna Carmona MD [address] [place] [phone] documented as of this encounter Visit Diagnoses Not on filedocumented in this encounter Historical Medications * This list may reflect changes made after this encounter. levothyroxine (SYNTHROID) 200 mcg tablet every 24 hours. 01/27/2022 added in this encounter Care Teams Data Coder Operator Relationship Specialty Start Date End Date Lynne Ramírez FNP [address] [place] [address] [place] [address] PCP - General 03/12/19 09/04/23 Mariaelena Goins NP [address] [place] [phone] Nurse Practitioner Endocrinology, Diabetes and Metabolism 07/20/21 documented as of this encounter
--- OUTSIDE RECORDS SUMMARY | 2024-07-13 14:04 | XMS_ITS | Continuity of Care Document ---
Author Organization [facility] Address [address] [place] [address] Care Team Providers Care Sound Effects Person Name Role Phone PRAVEENA LOPEZ RPA Primary Care Physician [phone] Encounter [facility] [facility] NBR [id number] Date(s): 05/01/24 - 05/01/[address] [address]- [place] Discharge Disposition: Home or Self Care Attending Physician: YANI Burnett Admitting Physician: YANI Burnett Referring Physician: YANI Burnett Allergies, Adverse Reactions, Alerts Substance Criticality Severity Reaction Reaction Severity Status gabapentin Unable to assess criticality Unknown Active NSAIDs Unable to assess criticality Unknown Active Medications Advair Diskus 250 mcg-50 mcg inhalation [...] Status Informant Musculoskeletal pain Confirmed Active Results Radiology Reports * Exam Date Time Procedure Performing Provider Status 05/01/24 10:18 AM XR Spine Lumbosacral 2 or 3 Views DomainUser, Generated; Auth (Verified) Notes: (XR Spine Lumbosacral 2 or 3 Views) Reason For Exam: low back pain XR Spine Lumbosacral 2 or 3 Views EXAM DESCRIPTION: XR Spine Lumbosacral 2 or 3 Views 05/01/2024 INDICATION: LOW BACK PAIN COMPARISON: None IMPRESSION: No acute fracture. Mild retrolisthesis at L1-2, L2-3 and L3-4 with dextroscoliosis centered in the mid-lower lumbar region Spondylotic changes throughout the lumbar region with intervertebral disc space narrowing and endplate osteophyte formation No significant SI joint asymmetry Regional vascular calcification. JOB #: [id number] Final Signed by: Ezequiel Sims MD Signed (Electronic Signature): 05/01/2024 10:20 am Social History Social History Type Response Tobacco Current everyday tob acco user Tobacco Use:. 6 cigarettes per day per day. Sex Sex Representation Female (finding) Patient Care team information Care Team Personnel Name: PRAVEENA LOPEZ RPA Position: No Access Member Role: Primary Care Physician Address: [address] [place] [address] Care Team Related Persons Name: HANNAH COOPER Insurance Providers Guarantor name: LEXUS DARLINGYES Health Plan Information #: 1 Payer: [facility] Member Number: [id number] Policy Number: NA Health Plan Information #: 2 Payer: [place] Member Number: [id number] Policy Number: NA
--- OUTSIDE RECORDS SUMMARY | 2024-07-13 14:04 | XMS_ITS | Clinical Summary ---
Author Organization [facility] Address [address] [place] [address] Care Team Providers Care Nurse Chemical Dependency Name Role Phone Mariaelena Garces SOFTWARE TEST MANAGER Unavailable [phone] Kyaw Ahn RPA Primary Care Provider [phone] Allergies Active Allergy Reactions Criticality Noted Date [...] ORAL) Take 1 Tab by mouth. Active Jbdjp-0-XSF-EPA -Fish Oil 1,200 (144-216) mg capsule Take [...] 04/22/2020 Liver lesion 04/22/2020 Fatigue 04/22/2020 Aneurysm ([facility]) 04/22/2020 History of thyroid cancer 04/22/2020 Stage 3 chronic kidney disease ([facility]) 017 Myofascial pain 09/07/2016 NSAID long-term use 09/07/2016 IFG (impaired fasting glucose) 11/12/2015 Hyperlipidemia, unspecified 11/12/2015 Prurigo nodularis 10/03/2015 History of nicotine dependence 03/21/2014 Pain in joint, lower leg 03/21/2014 Lumbosacral spondylosis without myelopathy 11/21 Spondylosis of lumbar spine 10/10/2013 Mechanical low back pain 09/12/2013 Sleep apnea 08/23/2013 Morbid obesity ([facility]) 08/23/2013 Depression 08/23/2013 Bilateral knee pain 08/23/2013 Panic disorder 02/28/2013 Encounters Date Type Department Care Team Description 05/07/2024 Telephone [facility] Endocrinology [address] [place] [address] Chayito Villegas, MORRIS Medications Refill 04/30/2024 Telephone [facility] Endocrinology [address] [place] [address] Samantha Mcguire, MORRIS Medications Refill from Last 3 Months Immunizations [...] Contact Info) Description 08/07/2024 11:00 EST Telemedicine [facility] [place] [address] [place] [address] Brenna Carmona MD [address] [facility] [address] [place] [address] Health Maintenance Due Date Last Done Comments Hepatitis C Screen 1965 Pneumococcal Immunization (2 of 2 - PCV) 01/20/2011 01/20/2010 RSV Immunization ( o r 60+ Years) (1 - Risk 60-74 years 1-dose series) 2023 COVID-19 Vaccine (5 - 2023-2 5 season) 2024 07/01/2023, 05/04/2022, 10/19/2021, Additional history exists Insurance MEDICAID [place] [employer] MEDICARE MEDICAID [place] [employer] MEDICARE Care Teams Nurse Chemical Dependency Relationship Specialty Start Date End Date Kyaw Ahn RPA [address] [place] [address] PCP - General Family Medicine - Primary Care 09/05/23 Mariaelena Garces SOFTWARE TEST MANAGER [address] [place] [phone] Nurse Practitioner Endocrinology, Diabetes and Metabolism 07/20/21
--- OUTSIDE RECORDS SUMMARY | 2024-07-13 14:04 | XMS_ITS | Encounter Summary ---
Author Organization [facility] Address [address] [place] [address] Care Team Providers Care Chief Of Pediatric Urology Name Role Phone Lynne Ramírez JAVID Primary Care Provider [phone] Mariaelena Garces TECHNOLOGY SUPPORT ANALYST Unavailable [phone] Reason for Visit * Reason Comments Hypothyroidism Refill, medication m onitoring Encounter Details Date Type Department Care Team (Latest Contact Info) Description 05/19/2022 8:30 EST Telemedicine [facility] Endocrinology [address] [place] [address] Brenna Darnell MD [address] [facility] [address] [place] [address] Postprocedural hypothyroidism (Primary Dx); Medication [...] - - Weight 188.2 kg (415 lb) 05/19/2022818 EST Height 167.6 cm (5' 6) 05/19/2022 08 EST Body Mass Index 66.98 05/19/2022818 EST documented in this encounter Functional Status [...] Branded name necessary 90 Tablet 3 05/19/2022 3 documented in this encounter Progress Notes * Brenna Pope MD - 05/19/2022829 EST [facility] [place] Today's visit was provided through [...] Contact Info) Description 08/07/2024 11:00 EST Telemedicine [facility] [place] [address] [place] [address] Brenna Carmona MD [address] [place] [phone] documented as of this encounter Visit [...] may reflect changes made after this encounter. L.acid/L.casei/B.b if/B.ashley/FOS (PROBIOTIC BLEND ORAL) Take by mouth. added in this encounter Care Teams Chief Of Pediatric Urology Relationship Specialty Start Date End Date Lynne Ramírez FNP [facility] [place] [address] PCP - General 03/12/19 09/04/23 Mariaelena Garces NP [address] [place] [phone] Nurse Practitioner Endocrinology, Diabetes and Metabolism 07/20/21 documented as of this encounter
--- OUTSIDE RECORDS SUMMARY | 2024-07-13 14:04 | XMS_ITS | Encounter Summary ---
Author Organization [facility] Address [address] [place] [address] Care Team Providers Care Oncology Specialist Name Role Phone Lynne Ramírez JAVID Primary Care Provider [phone] Mariaelena Garces CLOCK MAKER Unavailable [phone] Reason for Visit * Reason Comments Hypothyroidism Encounter Details Date Type Department Care Team (Latest Contact Info) Description 08/02/2023 15:00 EST Telemedicine [facility] Endocrinology [address] [place] [address] Brenna Carmona MD [address] [place] [address] [place] [phone] Postprocedural hypothyroidism (Primary Dx) Social History [...] documented in this encounter Progress Notes * Amina Moise [...] Home Patient location state: Visit Location State: [place] The location of the provider: Office Provider location state: Visit Location State: [place] The following people and their roles were [...] 0.5 Tablets by mouth 2 times daily. Fdnkx-6-NFB-EPA-Fish Oil 1,200 (144-216) mg capsule Take 2 [...] Imaging Results: Lab Results Component Value Date [id number] 133 10/19/2021 Assessment and Plan: Hypothyroidism: clinically euthyroid but biochemically mildly hypothyroid based on reported TSH. Will try to track don the results to decide on dose adjustment if needed. RTC 6 months documented in this encounter Plan of Treatment Upcoming Encounters Date Type Department Care Team (Late st Contact Info) Description 08/07/2024 11:00 EST Telemedicine [facility] Endocrinology [address] [place], [place] [id number] Brenna Carmona MD [address] [employer] [address] [place] [address] documented as of this encounter [...] may reflect changes made after this encounter. VITAMIN D3 25 mcg (1,000 unit) capsule [...] 07/27/2023 documented in this encounter Care Teams Oncology Specialist Relationship Specialty Start Date End Date Lynne Ramí[place] [address] PCP - General 03/12/19 09/04/23 Mariaelena Garces NP [address] [place] [address] [address] [place] [phone] Nurse Practitioner Endocrinology, Diabetes and Metabolism 07/20/21 documented as of this encounter
--- OUTSIDE RECORDS SUMMARY | 2024-07-13 14:04 | XMS_ITS | Encounter Summary ---
Author Organization [facility] Address [address] [place] [address] Care Team Providers Care Production Designer Name Role Phone Lynne Ramírez JAVID Primary Care Provider [phone] Mariaelena Garces WOOD VENEER TAPER Unavailable [phone] Reason for Visit * Reason Onset Date Comments Medications Refill 12/16/2021 Encounter Details Date Type Department Care Team (Late st Contact Info) Description 12/16/2021 Refill [facility] Endocrinology [address] [place] [address] Charlene Ha RN Medications Refill Social History [...] tablet Tuesday, Tue, Tuesday. 48 Tablet 12/16/2021 2 levothyroxine (SYNTHROID) 200 mcg tablet Take 1 Tablet by mouth daily. Branded name necessary 90 Tablet 2 12/16/2021 2 documented in this encounter Miscellaneous Notes * Telephone Encounter - Charlene Ha RN - 12/16/2021 1029 EDT Prescription sent to pharmacy per Dr Darnell's orders. documented in this encounter Plan of Treatment Upcoming Encounters Date Type Department Care Team (Late st Contact Info) Description 08/07/2024 11:00 EST Telemedicine [facility] Endocrinology [address] [place], [place] [address] Brenna Carmona MD [address] [place] [address] [address] [place] [address] documented as of this encounter [...] as of this encounter Care Teams Production Designer Relationship Specialty Start Date End Date Lynne Ramírez FNP [facility] [place] [address] PCP - General 03/12/19 09/04/23 Mariaelena Garces NP [address] [facility] [address] [place] [phone] Nurse Practitioner Endocrinology, Diabetes and Metabolism 07/20/21 documented as of this encounter
--- OUTSIDE RECORDS SUMMARY | 2024-07-13 14:05 | XMS_ITS | Encounter Summary ---
[place] [address] Care Team Providers Care Car Examiner Name Role Phone Bhumi Ventura APRN Primary Care Provider [phone] Encounter Details Date Type Department Care Team (Late st Contact Info) Description 11/22/2013 Telephone [place] [phone] Elise Mojica, RN Social History Tobacco Use [...] Center Post-Procedure Phone Note Patient: Vanesa Marrero [id number] Post-procedure phone call from patient to report [...] DO. _x_ Patient will be contacted by head concierge in Pain Management Center as described above. [...] filedocumented in this encounter Care Teams Car Examiner Relationship Specialty Start Date End Date Bhumi Ventura APRN [address] [place] [address] PCP - General 08/23/13 11/13/14 documented as of this encounter
--- OUTSIDE RECORDS SUMMARY | 2024-07-13 14:05 | XMS_ITS | Encounter Summary ---
Author Organization [facility] Address [address] [place] [address] Care Team Providers Care Final Inspector Name Role Phone Unavailable Primary Care Provider Unavailabl e Encounter Details Date Type Department Care Team (Late st Contact Info) Description 03/28/2013 Results Only [facility] Laboratory Services - [facility] ([facility] [address] [place] [address] Rudy Latif, [address] [facility] ,[address] [place] [address] Social History Tobacco Use Types Packs/Day Years Used Date Smoking Tobacco: Never Assessed Comments Unknown Sex and Gender Information Value Date Recorded Sex Assigned at Not on file Legal Sex Female 17:57 EST Gender Identity Female 06/15/2021 12:28 EST Sexual Orientation Not on file documented as of this encounter Plan of Treatment Upcoming Encounters Date Type Department Care Team (Late st Contact Info) Description 08/07/2024 11:00 EST Telemedicine [facility] Endocrinology [address] [place] [address] Brenna Carmona MD [address] [facility] [address] [place] [address] documented as of this encounter [...] ? VANESA COOPER ? Accession #: ? [id number] ? : ? 1965 (Age: 48) ??F [...] COLLIER 03/28/2013 9:15 EDT 03/29/2013 9:15 EDT us Rudy Latif DO PATHOLOGY ORDERABLES Fi nal Result [facility] [address] [place] [address] documented in this encounter Visit Diagnoses Not on filedocumented in this encounter
--- OUTSIDE RECORDS SUMMARY | 2024-07-13 14:05 | XMS_ITS | Encounter Summary ---
Author Organization [facility] [place] [address] Care Team Providers Care Pretzel Packer Name Role Phone Lorenzo Bhumi LOPEZ Primary Care Provider [phone] Reason for Visit * Reason Comments Back Pain Encounter Details Date Type Department Care Team (Latest Contact Info) Description 10/26/2013 1:15 PM EDT Procedure [place] [address] Ricky Banerjee [facility] [place] [address] Spondylosis of lumbar region without myelopathy or [...] Post -Procedure Pain Log Patient: Vanesa Marrero [id number] It is important for you to keep [...] Marrero Referring Physician: Jose C Marroquin [facility] [place] [address] Diagnosis: 1. Spondylosis of lumbar region without [...] the entire procedure. Ricky Banerjee DO, MPH [facility] board certification in Pain Medicine Attending Physician - Pain Management CC: MAKENNA Patel [facility] [place] [address] * Sena Narayan LPN - 10/26/2013 1:47 PM EDT Pre-Procedure Screening Questions: 1. Status: No 2. 3. Patient states they have a route sales delivery drivers supervisor to transport after procedure? Yes 4. Patient [...] Scheduled Procedures Name Priority Associated Diagnoses Date/Ti ca COLONOSCOPY, DIAGNOSTIC (WRV U 3.26) + cologuard [...] mg documented in this encounter Care Teams Pretzel Packer Relationship Specialty Start Date End Date Bhumi Ventura APRN [address] [place] [address] PCP - General 08/23/13 11/13/14 documented as of this encounter
--- OUTSIDE RECORDS SUMMARY | 2024-07-13 14:05 | XMS_ITS | Encounter Summary ---
[place] [address] Care Team Providers Care Avionics Integration Engineer Name Role Phone LorenzoCasperBhumi JOHN Primary Care Provider [phone] Encounter Details Date Type Department Care Team (Late st Contact Info) Description 02/21/2014 [place] [phone] Juana Jane RN Social History Tobacco Use [...] RF patients with a pacemaker) on 02/26/2014. Char Filter Operator: The patient was reminded that they need to have a catering truck driver accompany them to her procedure who [...] No Prior to checking in at [employer] Worker, please be sure to empty your bladder. [...] on filedocumented in this encounter Care Teams Avionics Integration Engineer Relationship Specialty Start Date End Date Bhumi Ventura APRN [address] [place] [address] PCP - General 08/23/13 11/13/14 documented as of this encounter
--- OUTSIDE RECORDS SUMMARY | 2024-07-13 14:05 | XMS_ITS | Encounter Summary ---
[place] [address] Care Team Providers Care Pharmacy Technician Infusion Name Role Phone LorenzoCasperBhumi JOHN Primary Care Provider [phone] Encounter Details Date Type Department Care Team (Late st Contact Info) Description 02/19/2014 Telephone [place] [phone] Lucia Louise, RN Social History Tobacco Use [...] on 02/26/2014 (date of procedure) with their cattle driver. 2. Following instructions left in the [...] on filedocumented in this encounter Care Teams Pharmacy Technician Infusion Relationship Specialty Start Date End Date Bhumi Ventura APRN [address] [facility] [place] [place] [address] PCP - General 08/23/13 11/13/14 documented as of this encounter
--- OUTSIDE RECORDS SUMMARY | 2024-07-13 14:05 | XMS_ITS | Encounter Summary ---
Author Organization [facility] Address [address] [place] [address] Care Team Providers Care Caramel Cutter Machine Name Role Phone Lynne Ramírez JAVID Primary Care Provider [phone] Reason for Visit * Reason Comments New Patient Visit Encounter Details Date Type Department Care Team (Latest Contact Info) Description 07/28/2020 11:30 EST Telemedicine [facility] Endocrinology [address] [place], [place] [id number] Quan Darnell MD [address] [facility] [address] [place] [address] Postablative hypothyroidism (Primary Dx); Thyroid cancer ([facility]) Social History Tobacco Use Types Packs/Day Years [...] documented in this encounter Progress Notes * Quan Pope MD - 07/28/2020 1130 EST [facility] Telephone Visit Subjective: Chief Complaint(s): New Patient [...] Plan: 1. Postablative hypothyroidism 2. Thyroid cancer ([facility]) Hypothyroidism: based on last labs appeared over [...] Info) Description 08/07/2024 11:00 EST Telemedicine [facility] Endocrinology [address] [place] [address] Quan Carmona MD [address] [place] [phone] Scheduled Orders Name Type Priority Associated [...] may reflect changes made after this encounter. Psyllium Husk 0.52 gram capsule Take 4 Tabs by mouth daily. Yroyq-8-MKR-EPA-F yajaira Oil 1,200 (144-216) mg capsule Take 2 Caps by mouth. folic acid/multivit-min /lutein (CENTRUM SILVER ORAL) Take 1 Tab by mouth. piroxicam (FELDENE) 10 mg capsule Take 20 mg by mouth daily. 07/28/2020 naproxen sodium (ANAPROX) 550 mg tablet Take 550 mg by mouth. 07/28/2020 ARIPiprazole (ABILIFY) 5 mg tablet Take 5 mg by mouth daily. 07/28/2020 added in this encounter Care Teams Caramel Cutter Machine Relationship Specialty Start Date End Date Lynne Ramí[place] [address] PCP - General 03/12/19 09/04/23 documented as of this encounter
--- OUTSIDE RECORDS SUMMARY | 2024-07-13 14:05 | XMS_ITS | Encounter Summary ---
Author Organization [facility] Address [address] [facility] [place] [address] Care Team Providers Care Clerk Funeral Detail Name Role Phone Bhumi Ventura APRN Primary Care Provider Encounter Details Date Type Department Care Team (Latest Contact Info) Description 08/23/2013 12:38 PM EST - 08/23/2013 11:59 PM EST Hospital Encounter XRay at [facility] [address] [place] [address] Bilateral knee pain Social History Tobacco Use [...] 2:43 PM ESTProcedure(s): ARTHROCENTESIS,DRAIN/INJECT JOINT/BURSA Vanesa Marrero [id number] HISTORY: bilateral knee Pain Bilateral Knee INJECTION [...] EST documented in this encounter Care Teams Clerk Funeral Detail Relationship Specialty Start Date End Date Bhumi Ventura APRN [address] [place] [address] PCP - General 08/23/13 11/13/14 documented as of this encounter
--- OUTSIDE RECORDS SUMMARY | 2024-07-13 14:05 | XMS_ITS | Encounter Summary ---
Author Organization [facility] [place] [address] Care Team Providers Care Yardage Control Operator Name Role Phone Roula Bauman APRN Primary Care Provider Un available Encounter Details Date Type Department Care Team (Late st Contact Info) Description 05/13/2019 Ancillary Procedure Radiology Library at [facility] ([place] [address] Juan Manuel Eldridge MD [facility] [place] [address] Social History Tobacco Use Types Packs/Day Years [...] Abdomen Pelvis (05/13/2019 12:00 AM EST) Narrative ABRAM - 12/21/2021 1:24 PM EDT This exam is auto-finalizing. It's purpose is for storage only. Juan Manuel Eldridge MD G FILM LIBRARY ORD ERABLES Performing Organization Address City/State/[facility] Co de Phone Number [place], [place] documented in this encounter Visit Diagnoses Not on filedocumented in this encounter Care Teams Yardage Control Operator Relationship Specialty Start Date End Date Roula Bauman APRN PCP - General 11/14/14 07/05/24 documented as of this encounter
--- OUTSIDE RECORDS SUMMARY | 2024-07-13 14:05 | XMS_ITS | Encounter Summary ---
Author Organization [facility] [place] [address] Care Team Providers Care Cutter Brake Lining Name Role Phone Lorenzo Bhumi LOPEZ Primary Care Provider [phone] Reason for Visit * Reason Comments Back Pain Encounter Details Date Type Department Care Team (Latest Contact Info) Description 11/21/2013 1:30 PM EDT Procedure [place] [address] Arsen Paul [facility] [place] [address] Lumbosacral spondylosis without myelopathy Discharge Disposition: Home [...] Patient Instructions * Patient Instructions* America Singer, AIRFIELD ENGINEER OFFICER - 11/21/2013 1:45 PM EDT Pain Management [...] Post -Procedure Pain Log Patient: Vanesa Marrero [id number] It is important for you to keep [...] No 2. Patient states they have a pizza driver to transport after procedure? Yes 3. [...] Medicine Attending Physician-Pain Management CC: MAKENNA Patel [facility] [place] [address] documented in this encounter Plan of Treatment [...] Medicine Attending Physician-Pain Management CC: MAKENNA Patel [facility] [place] [address] Procedure Note Linda May - 11/21/2013 2:05 [...] met discharge criteria, she was discharged from [facility]. COMMENTS: Pt tolerated the procedure well. [...] Medicine Attending Physician-Pain Management CC: MAKENNA Patel [facility] [place] [address] Arsen Allen DO NEUROLOGY ORDERABLES documented in [...] mg documented in this encounter Care Teams Cutter Brake Lining Relationship Specialty Start Date End Date Bhumi Ventura APRN [address] [place] [address] PCP - General 08/23/13 11/13/14 documented as of this encounter
--- OUTSIDE RECORDS SUMMARY | 2024-07-13 14:05 | XMS_ITS | Clinical Summary ---
Author Organization [facility] Address One [facility] [place] [address] Care Team Providers Care Painter Barrel Name Role Phone None Primary Care Provider Unavailabl e Allergies No known active allergies Medications Medication [...] Encounters Date Type Department Care Team Description 05/22/2024 Telephone [place] [address] Brit Mayo from Last 3 Months Family History Medical [...] HIV screen 1981 Hepatitis C Screening 1981 Pneumoccocal Vaccine: 50+ (1 of 2 - PCV) 1982 Tetanus/Diphtheria/Pertussis Vaccines (1 - Tdap) 1982 HPV test 1993 PAP Smear 1993 Breast Cancer Share Decision Needed 2003 Breast Cancer screening 2003 Zoster vaccine (1 of 2) 2013 Advance Directive 2018 Covid-19 Vaccine (5 - 4-2 5 season) 2024 07/01/2023, 05/04/2022, 10/19/2021, Additional history exists Influenza (Flu) vaccine (1 o f 1 - Influenza standard series) 02/26/2024 Care Teams Painter Barrel Relationship Specialty Start Date End Date None None PCP - General 07/06/24
--- OUTSIDE RECORDS SUMMARY | 2024-07-13 14:05 | XMS_ITS | Encounter Summary ---
[place] [address] Care Team Providers Care Heavy Equipment Engine Mechanic Name Role Phone Bhumi Ventura APRN Primary Care Provider [phone] [phone] Encounter Details Date Type Department Care Team (Late st Contact Info) Description 09/13/2013 External [place] [id number] Provider, Scanning Social History Tobacco Use Types [...] on filedocumented in this encounter Care Teams Heavy Equipment Engine Mechanic Relationship Specialty Start Date End Date Bhumi Ventura APRN [address] [place] [address] PCP - General 08/23/13 11/13/14 documented as of this encounter
--- OUTSIDE RECORDS SUMMARY | 2024-07-13 14:05 | XMS_ITS | Encounter Summary ---
Author Organization [facility] Sophy [facility] [place] [address] Care Team Providers Care Skin Specialist Name Role Phone Lorenzo Bhumi LOPEZ Primary Care Provider [phone] Reason for Visit * Reason Comments Back Pain Encounter Details Date Type Department Care Team (Latest Contact Info) Description 12/10/2013 2:30 PM EDT Procedure visit [place] [address] [facility] [address] Lumbosacral spondylosis without myelopathy (Primary Dx) Discharge [...] No 2. Patient states they have a racing car driver to transport after procedure? Yes [...] skin entry points and subcutaneous tissues, a [id number] 20 guage curved needle with a 10mm [...] the entire procedure. Ricky Banerjee DO, MPH [facility]-subspecialty board certification in Pain Medicine Attending Physician-Pain Management CC: Bhumijeremiah Ventura, PLANT UTILITY PERSON [address] [place] [address] documented in this encounter Plan of Treatment [...] skin entry points and subcutaneous tissues, a [id number] 20 guage curved needle with a 10mm [...] Medicine Attending Physician-Pain Management CC: Bhumi Ventura, PLANT UTILITY PERSON [address] [place] [address] Procedure Note Huch, Josh M, DO - [...] the skin entry points andsubcutaneous tissues, a [id number] 20 guage curved needle with a 10mmactive [...] Attending Physician-Pain Management CC: Bhumi Ventura APRN [address] [place] [address] Ricky Allen DO PROCEDURE/MINOR SURG ICAL ORDERABLES [...] mg documented in this encounter Care Teams Skin Specialist Relationship Specialty Start Date End Date Bhumi Ventura APRN [address] [facility] [place] [address] PCP - General 08/23/13 11/13/14 documented as of this encounter
--- OUTSIDE RECORDS SUMMARY | 2024-07-13 14:05 | XMS_ITS | Encounter Summary ---
Author Organization [facility] [place] [address] Care Team Providers Care Hand Striper Name Role Phone Jose Akhtar MD Primary Care Provider U ken Encounter Details Date Type Department Care Team (Late st Contact Info) Description 07/12/2013 Orders [place] [address] Sebastien Kathleen MD [facility] [place] [address] Social History Tobacco Use Types Packs/Day Years [...] on filedocumented in this encounter Care Teams Hand Striper Relationship Specialty Start Date End Date Jose Akhtar MD PCP - General 05/19/10 08/22/13 documented as of this encounter
--- OUTSIDE RECORDS SUMMARY | 2024-07-13 14:05 | XMS_ITS | Encounter Summary ---
Author Organization [facility] Address One [facility] [place] [address] Care Team Providers Care Rail Car Welder Name Role Phone Bhumi Ventura APRN Primary Care Provider Encounter Details Date Type Department Care Team (Latest Contact Info) Description 08/23/2013 8:32 AM EST - 08/23/2013 12:37 PM [facility] Encounter XRay at [facility] [address] [place] [address] Bilateral knee pain Social History Tobacco Use [...] leg documented in this encounter Care Teams Rail Car Welder Relationship Specialty Start Date End Date Bhumi Ventura APRN [address] [place] [address] PCP - General 08/23/13 11/13/14 documented as of this encounter
--- OUTSIDE RECORDS SUMMARY | 2024-07-13 14:05 | XMS_ITS | Encounter Summary ---
[place] [address] Care Team Providers Care Salesperson Trailers And Motor Homes Name Role Phone LorenzoBhumi JOHN Primary Care Provider [phone] Encounter Details Date Type Department Care Team (Late st Contact Info) Description 12/07/2013 Telephone [place] [phone] Sena Narayan, RN Social History Tobacco Use [...] time) on 6-16-14 (dateof procedure) with their driver salesman. 2. Following instructions left in the message: [...] on filedocumented in this encounter Care Teams Salesperson Trailers And Motor Homes Relationship Specialty Start Date End Date Bhumi Ventura APRN [address] [place] [address] PCP - General 08/23/13 11/13/14 documented as of this encounter
--- OUTSIDE RECORDS SUMMARY | 2024-07-13 14:05 | XMS_ITS | Encounter Summary ---
[place] [address] Care Team Providers Care Classified Ad Clerk Name Role Phone LorenzoCasperBhumilouise LOPEZ Primary Care Provider [phone] Reason for Visit * Reason Onset Date Comments Referral 07/25/2013 Encounter Details Date Type Department Care Team (Late st Contact Info) Description 07/25/2013 [place] [phone] Bony Valentin Referral Social History Tobacco Use [...] access to your electronic medical record at [facility] and the ability to communicate with your [...] the instructions. Here is your activation code: [email or web address] Expires: 09/16/2013 11:37 AM Remember, myD-H is NOT for urgent needs! Always dial 911 for medical emergencies. * Telephone Encounter - Marguerite Lopez - 07/31/2013 4:29 PM EST Appt. 08/23/13 * Telephone Encounter - Angelina Melo - 07/27/2013 12:11 PM EST Ask patient to verify the following: COMPLETE Full name: Vanesa Marrero : 1965 Phone number: [phone] (home) Mailing address: [address] [address] Intake: BILAT KNEE PAIN / DJD Is [...] for this issue? ?? X-Ray YES - [facility] ?? MRI ?? CT Scan ?? LABS Have you seen an Orthopaedic surgeon for the this issue? YES If YES: Who did you see? DR SHEPPARD Where were you seen (facility)? [facility] When? Have you ever had surgery for [...] on filedocumented in this encounter Care Teams Classified Ad Clerk Relationship Specialty Start Date End Date Bhumi Ventura APRN [address] [place] [address] PCP - General 08/23/13 11/13/14 documented as of this encounter
--- OUTSIDE RECORDS SUMMARY | 2024-07-13 14:05 | XMS_ITS | Encounter Summary ---
Author Organization [facility] Address [address] [place] [address] Care Team Providers Care It Associate Name Role Phone Lynne Ramírez Primary Care Provider [phone] Reason for Visit * Reason Comments New Patient Visit joint pain * Referral (Routine) - Closed Specialty Diagnoses / Procedures [facility] Referred To Contact Rheumatology Diagnoses Myalgia, unspecified site Lynne Ramírez FNP [address] [place] [address] Phone: tel: fax: [facility] Rheumatology & Immunology [address] [address] Phone: tel: fax: Referral ID Status Reason Start Date Expiration Date Visits Re quested Visits Authorized [id number] Closed 1 1 Encounter Details Date Type Department Care Team (Late st Contact Info) Description 05/22/2019 14:55 EST Office Visit [facility] Rheumatology & Immunology [address] [address] Constantine Correia MD [address] [place] [address], [address] [place] [address] Sicca syndrome (HCC-CMS) (Primary Dx); Chronic pain of both knees Social History Tobacco Use Types Packs/Day Years Used Date Smoking Tobacco: Some Days Cigarettes 0.3 25 Smokeless Tobacco: Never Comments No Sex and Gender Information Value [...] 05/22/2019 14:33 EST documented in this encounter Patient Instructions * [...] sicca by drinking water frequently and using [id number]-bbu-xcghesr therapies like Biotene products, spray products, xylitol-based [...] documentation was created using voice recognition software. Auto Technician errors may be present. documented in this encounter Plan of Treatment Upcoming Encounters Date Type Department Care Team (Late st Contact Info) Description 08/07/2024 11:00 EST Telemedicine [facility] Endocrinology [address] [place], [place] [address] Brenna Carmona MD [address] [place] [address] documented as of this encounter Results * ANTI NUCLEAR AB (FILIBERTO), IFA (05/22/2019 16:50 EST) Pathologist [facility] FILIBERTO Interpretation Negative Negative 2018 15:22 EST [facility] Blood VENOUS BLOOD / Unknown Venipuncture / Unknown 05/22/2019 16:50 EST 05/22/2019 17:42 EST Narrative [facility] - 05/23/2019 15:22 EST Results were obtained with the [employer] NOVA Lite HEp-2 FILIBERTO Kit by indirect immunofluorescence. us Constantine Correia MD IMMUNOLOGY AND SEROLOG Y ORDERABLES Final Result [facility] [address] [place] [address] * RHEUMATOID FACTOR (05/22/2019 16:50 EST) Rheumatoid Factor 8.0 <12.5 IU/mL 05/23/2019 11:34 EST [facility] Blood VENOUS BLOOD / Unknown Venipuncture / Unknown 05/22/2019 16:50 EST 05/22/2019 17:42 EST Constantine Correia MD CHEMISTRY & BLOOD GAS ORDERABLES Final Result Performing Organization Address [facility] de Phone Number [facility] [address] [place] [address] * SSB ANTIBODIES BY JIMMIE (05/22/2019 16:50 EST) SSB Antibody 2.4 <20.0 Units 05/29/2019 12:52 EST [facility] Comment: ? Negative: <20.0 Units ? Weak Positive: 20.0 - 39.9 Units ? Moderate Positive: 40.0 - 80.0 Units ? Strong Positive: >80.0 Units Results were obtained with the [facility] QUANTA Lite SS-B JIMMIE. ??SS-B values obtained with different manufacturers' assay methods may not be used interchangeably. ??The magnitude of the reported IgG levels cannot be correlated to an endpoint titer. Blood VENOUS BLOOD / Unknown Venipuncture / Unknown 05/22/2019 16:50 EST 05/22/2019 17:42 EST Constantine Correia MD IMMUNOLOGY AND SEROLOG Y ORDERABLES Final Result Performing Organization Address [facility] Co de Phone Number [facility] [address] [place] [address] * SSA ANTIBODIES BY JIMMIE (05/22/2019 16:50 EST) SSA Antibody 1.3 <20.0 Units 05/29/2019 12:49 EST [facility] Comment: ? Negative: <20.0 Units ? Weak Positive: 20.0 - 39.9 Units ? Moderate Positive: 40.0 - 80.0 Units ? Strong Positive: >80.0 Units Results were obtained with the [employer] CloudA Lite SS-A JIMMIE. ??SS-A values obtained with different manufacturers' assay methods may not be used interchangeably. ??The magnitude of the reported IgG levels cannot be correlated to an endpoint titer. Blood VENOUS BLOOD / Unknown Venipuncture / Unknown 05/22/2019 16:50 EST 05/22/2019 17:42 EST us Constantine Correia MD IMMUNOLOGY AND SEROLOG Y ORDERABLES Final Result [facility] [address] [place] [address] documented in this encounter Visit Diagnoses Diagnosis Sicca syndrome ([facility])- Primary Sicca syndrome Chronic pain of both knees documented in this encounter Historical Medications * This list may reflect changes made after this encounter. Magnesium 250 mg tablet Take 2 Caps [...] 08/25/2020 added in this encounter Care Teams It Associate Relationship Specialty Start Date End Date Lynne Ramírez FNP [address] [place] [address] PCP - General 03/12/19 09/04/23 documented as of this encounter
--- OUTSIDE RECORDS SUMMARY | 2024-07-13 14:05 | XMS_ITS | Encounter Summary ---
[place] [address] Care Team Providers Care Production Assembly Supervisor Name Role Phone Lorenzo Bhumi LOPEZ Primary Care Provider [phone] Encounter Details Date Type Department Care Team (Late st Contact Info) Description 02/21/2014 Telephone [place] [phone] Juana Jane RN Social History Tobacco Use [...] procedure start time) on 02/26/2014 with their bulk tank driver. 2. Following instructions left in [...] on filedocumented in this encounter Care Teams Production Assembly Supervisor Relationship Specialty Start Date End Date Bhumi Ventura APRN [address] [place] [address] PCP - General 08/23/13 11/13/14 documented as of this encounter
--- OUTSIDE RECORDS SUMMARY | 2024-07-13 14:05 | XMS_ITS | Encounter Summary ---
Author Organization [facility] [place] [address] Care Team Providers Care Ecmo Specialist Name Role Phone Bhumi Ventura APRN Primary Care Provider [phone] Reason for Referral * Surgical (Routine) - Closed Specialty Diagnoses / Procedures Referred By Contac t Referred To Contact Orthopaedics Diagnoses Bilateral knee pain Jim Ferreira PA [facility] [place] [address] [facility] [place] [address] [address] Referral ID Status Reason Start Date Expiration Date V isits Requested Visits Authorized [id number] Closed Consult, Test & Treat 08/23/2013 02/19/2014 1 1 * Psychiatric (Routine) - Complete - Unable to Contact Patient Specialty Diagnoses / Procedures Referred By Contac t Referred To Contact Psychiatry Diagnoses Bilateral knee pain Jim Ferreira PA [facility] [place] [address] Marychuy Wood I, PhD [facility] [place] [address] Referral ID Status Reason Start Date Expiration Date Visits Requested Visits Authorized [id number] Complete - Unable to Contact Patient Consult, Test & Treat 08/23/2013 02/19/2014 1 1 * Physical Therapy (Routine) - Closed by system - unspecified Specialty Diagnoses / Procedures Referred By Contac t Referred To Contact Physical Therapy Diagnoses Bilateral knee pain Jim Ferreira PA [facility] [place] [address] Referral ID Status Reason Start Date Expiration Date Visits Requested Visits Authorized [id number] Closed by system - unspecified Evaluate and Treat 08/23/2013 02/19/2014 20 20 Reason for Visit * Reason Comments Bilateral Knee Pain Encounter Details Date Type Department Care Team (Late st Contact Info) Description 08/23/2013 8:50 AM EST Office [place] [address] Sebastien Kathleen MD [facility] [place] [address] Jim Ferreira PA [facility] [place] [address] Bilateral knee pain (Primary Dx) Discharge Disposition: [...] bingeing on food 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 Smokes [...] leg documented in this encounter Care Teams Ecmo Specialist Relationship Specialty Start Date End Date Bhumi Ventura APRN [address] [place] [address] PCP - General 08/23/13 11/13/14 documented as of this encounter
--- OUTSIDE RECORDS SUMMARY | 2024-07-13 14:05 | XMS_ITS | Encounter Summary ---
[place] [address] Care Team Providers Care Blocker And Cutter Contact Lens Name Role Phone Roula Bauman APRN Primary Care Provider Un available Encounter Details Date Type Department Care Team (Late st Contact Info) Description 05/22/2024 Telephone [place] [address] Brit Mayo Social History Tobacco Use Types Packs/Day Years [...] on filedocumented in this encounter Care Teams Blocker And Cutter Contact Lens Relationship Specialty Start Date End Date Roula Bauman APRN PCP - General 11/14/14 07/05/24 documented as of this encounter
--- OUTSIDE RECORDS SUMMARY | 2024-07-13 14:05 | XMS_ITS | Encounter Summary ---
[place] [address] Care Team Providers Care Edging Machine Setter Name Role Phone LorenzoBhumi JOHN Primary Care Provider [phone] Encounter Details Date Type Department Care Team (Late st Contact Info) Description 11/20/2013 Telephone [place] [address] Laura Fishman LPN Social History Tobacco Use [...] a pacemaker) on 11/21/13 (date of procedure). Momd Teacher: The patient was reminded that they need to have a sales warehouse driver accompany them to her procedure who [...] No Prior to checking in at [employer] Sales Executive, please be sure to empty your bladder. [...] on filedocumented in this encounter Care Teams Edging Machine Setter Relationship Specialty Start Date End Date Bhumi Ventura APRN [address] [place] [address] PCP - General 08/23/13 11/13/14 documented as of this encounter
--- OUTSIDE RECORDS SUMMARY | 2024-07-13 14:05 | XMS_ITS | Encounter Summary ---
[place] [address] Care Team Providers Care Personnel Security Specialist Name Role Phone Bhumi Ventura APRN Primary Care Provider [phone] Reason for Referral * Consultation (Routine) - Closed Specialty Diagnoses / Procedures Referred By Alexia roger Referred To Contact Pain Management Diagnoses Mechanical low back pain Jose C Marroquin PA [facility] [place] [address] [facility] [address] [place] [address] Referral ID Status Reason Start Date Expiration Date V isits Requested Visits Authorized [id number] Closed Consult, Test & Treat 10/03/2013 04/01/2014 3 3 Reason for Visit * Reason Comments Low Back Pain Encounter Details Date Type Department Care Team (Late st Contact Info) Description 10/03/2013 9:20 AM EDT [place] [address] Jose C Marroquin PA Mechanical low back pain (Primary Dx) Discharge [...] Lumbago documented in this encounter Care Teams Personnel Security Specialist Relationship Specialty Start Date End Date Bhumi Ventura APRN [address] [place] [address] PCP - General 08/23/13 11/13/14 documented as of this encounter
--- OUTSIDE RECORDS SUMMARY | 2024-07-13 14:05 | XMS_ITS | Encounter Summary ---
[place] [address] Care Team Providers Care Dredgemaster Name Role Phone Roula Bauman APRN Primary Care Provider Un available Encounter Details Date Type Department Care Team (Late st Contact Info) Description 01/24/2024 Telephone [place] [address] Pancho Hart Social History Tobacco Use Types [...] on filedocumented in this encounter Care Teams Dredgemaster Relationship Specialty Start Date End Date Roula Bauman APRN PCP - General 11/14/14 07/05/24 documented as of this encounter
--- OUTSIDE RECORDS SUMMARY | 2024-07-13 14:05 | XMS_ITS | Encounter Summary ---
Author Organization [facility] Address [address] [place] [address] Care Team Providers Care Kennel Aide Name Role Phone Lynne Ramírez JAVID Primary Care Provider [phone] Mariaelena Garces SET UP / OPERATOR Unavailable [phone] Kyaw Ahn RPA Primary Care Provider [phone] Encounter Details Date Type Department Care Team (Late st Contact Info) Description 03/18/2020 Lab Requisition [facility] Pathology & Laboratory Medicine - [address] [address] Outr Resulting Lab, Provider Social History Tobacco [...] Contact Info) Description 08/07/2024 11:00 EST Telemedicine [facility] Endocrinology [address] [place], [place] [address] Brenna Carmona MD [address] [address] documented as of this encounter Procedures Procedure Name Priority Date/Time Associated Diagnosis Comments ANTI THYROGLOBULIN Routine 03/17/2020 9:51 EDT documented in this encounter Results * ANTI THYROGLOBULIN (03/17/2020 9:51 EDT) Anti-Thyroglob ulin <15 <=60 U/mL 03/19/2020 12:05 EDT [facility] Blood VENOUS BLOOD / Unknown 03/17/2020 9:51 EDT 03/18/2020 21:10 EDT us Provider Outr Resulting Lab CHEMISTRY & BLOOD GA S ORDERABLES Final Result Performing Organization Address City/State/[facility] Co de Phone Number [facility] [address] [place] [address] documented in this encounter Visit Diagnoses Not on filedocumented in this encounter Care Teams Kennel Aide Relationship Specialty Start Date End Date Lynne Ramírez FNP [address] [place] [phone] PCP - General 03/12/19 09/04/23 Kyaw Ahn RPA [address] [facility] [address] [place], [place] [phone] PCP - General Family Medicine - Primary Care 09/05/23 Mariaelena Garces NP [address] [facility] [address] [place] [phone] Nurse Practitioner Endocrinology, Diabetes and Metabolism 07/20/21 documented as of this encounter
--- OUTSIDE RECORDS SUMMARY | 2024-07-13 14:05 | XMS_ITS | Encounter Summary ---
Author Organization [facility] Address [address] [place] [address] Care Team Providers Care Attendance Secretary Name Role Phone Unknown, Provider MD Primary Care Provider Unava ilable Encounter Details Date Type Department Care Team (Late st Contact Info) Description 07/04/2013 Results Only [facility] - [facility] [address] [place] [id number] Devin Hawkins MD [address] [place] [phone] Social History Tobacco Use Types Packs/Day Years [...] Contact Info) Description 08/07/2024 11:00 EST Telemedicine [facility] Endocrinology [address] [place] [address] Brenna Carmona MD [address] [facility] [address] [place] [phone] documented as of this encounter Procedures Procedure Name Priority Date/Time Associated Diagnosis Comments SURGICAL PATHOLOGY Routine 07/04/2013 15 :22 EST documented in this encounter Results * SURGICAL PATHOLOGY (07/04/2013 15:22 EST) Pathologist [facility] Pathology Report: SURGICAL PATHOLOGY REPORT Reports generated [...] dysplasia. - ??Submucosal reactive changes. Comment: ? Photolettering Machine Operator sections of this case were reviewed at [...] 07/04/2013 15:2 2 EST 07/05/2013 15:22 EST us Devindenver Hawkins MD PATHOLOGY ORDERABLES Final Resul t [facility] [address] [place] [address] documented in this encounter Visit Diagnoses Not on filedocumented in this encounter Care Teams Attendance Secretary Relationship Specialty Start Date End Date Unknown, Provider, PCP - General 03/30/13 03/11/19 documented as of this encounter
--- OUTSIDE RECORDS SUMMARY | 2024-07-13 14:05 | XMS_ITS | Encounter Summary ---
[place] [address] Care Team Providers Care Tip Length Checker Name Role Phone Bhumi Ventura APRN Primary Care Provider [phone] Reason for Referral * Physical Therapy (Routine) - Closed Specialty Diagnoses / Procedures Referred By Contac t Referred To Contact Physical Therapy Diagnoses Mechanical low back pain Jose C Marroquin PA [facility] [place] [address] [facility] [place] [address] Referral ID Status Reason Start Date Expiration Date V isits Requested Visits Authorized [id number] Closed Evaluate and Treat 09/12/2013 03/11/2014 12 12 Reason for Visit * Reason Comments Referral back pain,lower Encounter Details Date Type Department Care Team (Late st Contact Info) Description 09/12/2013 10:00 AM EDT Office [place] [address] Jose C Marroquin PA Mechanical [...] Scheduled Procedures Name Priority Associated Diagnoses Date/Ti wv COLONOSCOPY, DIAGNOSTIC (WRV U 3.26) + cologuard [...] Lumbago documented in this encounter Care Teams Tip Length Checker Relationship Specialty Start Date End Date Bhumi Ventura APRN [address] [facility] [place] [place] [address] PCP - General 08/23/13 11/13/14 documented as of this encounter
--- OUTSIDE RECORDS SUMMARY | 2024-07-13 14:05 | XMS_ITS | Encounter Summary ---
[place] [address] Care Team Providers Care Hostel Parent Name Role Phone Roula Bauman APRN Primary Care Provider Un available Encounter Details Date Type Department Care Team (Late st Contact Info) Description 01/20/2024 Telephone [place] [address] Pancho Hart Social History Tobacco Use Types [...] - 01/20/2024 2:34 PM EDT Vanesa Marrero [id number] Diagnosis/Indication: + cologuard Please review patient chart [...] procedure? No You must have a responsible green party who will drive you to your procedure, stay on campus for the entire duration of your procedure, and drive you home from your procedure. Who will likely be your tank truck driver for the procedure? Bhumi *Please [...] on filedocumented in this encounter Care Teams Hostel Parent Relationship Specialty Start Date End Date Roula Bauman APRN PCP - General 11/14/14 07/05/24 documented as of this encounter
--- OUTSIDE RECORDS SUMMARY | 2024-07-13 14:05 | XMS_ITS | Encounter Summary ---
Author Organization [facility] Address [address] [place] [address] Care Team Providers Care Vamp Throater Name Role Phone Unavailable Primary Care Provider Unavailabl e Encounter Details Date Type Department Care Team (Late st Contact Info) Description 10/16/2003 Results Only [facility] - [facility] conversion [address], [place] [phone] William Latif MD [address] [place] [address] Social History Tobacco Use Types Packs/Day Years [...] Contact Info) Description 08/07/2024 11:00 EST Telemedicine [facility] [place] [address] [place] [address] Brenna Carmona MD [address] [facility] [address] [place] [address] documented as of this encounter [...] ? VANESA COOPER ? Accession #: ? [id number] ? : ? 1965 (Age: 38) ??F ? Collect Date: ? 10/16/2003 ? Location: ? [facility] ? Receive Date: ? 10/16/2003 ? Provider: WILLIAM LATIF MD Copy to: ANUSHA KAUR GROUND CREW LINES PERSON ? Final Pathologic Diagnosis: ? Gallbladder, cholecystectomy: [...] brown-green hard cholelith. ??The gallbladder mucosa is isn-tdluw-lubim and velvety. ??Serial sectioning reveals no masses or nodules with a wall thickness of 0.2 cm. ??The cystic duct is identified with a staple clip at one end, with no cystic duct lymph node identified. ??Three sales representative gas service sections of gallbladder are submitted in one cassette. ??(Dr. Bassett)/[facility] End of Report NICOL COLLIER 10/16/2003 10/16/2003 15: 01 EDT us William Latif MD PATHOLOGY ORDERABLES Final Result NICOL COLLIER [address] [place] [address] documented in this encounter Visit Diagnoses Not on filedocumented in this encounter
--- OUTSIDE RECORDS SUMMARY | 2024-07-13 14:05 | XMS_ITS | Encounter Summary ---
[place] [address] Care Team Providers Care Auxiliary Powerplant Operator Name Role Phone Bhumi Ventura APRN Primary Care Provider Reason for Visit * Reason Comments Low Back Pain Encounter Details Date Type Department Care Team (Late st Contact Info) Description 10/26/2013 11:00 AM EDT Office [place] [phone] Jahaira Hernandez, PT Bhumi Ventura APRN [address] [place], [place] [phone] Sebastien Kathleen MD [facility] [place] [address] Mechanical low back pain Discharge Disposition: Home [...] 5 6 7 8 9 10 10/03 10/26 documented in this encounter Plan of [...] Lumbago documented in this encounter Care Teams Auxiliary Powerplant Operator Relationship Specialty Start Date End Date Bhumi Ventura APRN [address] [place] [address] PCP - General 08/23/13 11/13/14 documented as of this encounter
--- OUTSIDE RECORDS SUMMARY | 2024-07-13 14:05 | XMS_ITS | Encounter Summary ---
[place] [address] Care Team Providers Care Hse Specialist Name Role Phone Roula Bauman APRN Primary Care Provider Un available Reason for Visit * Reason Comments Abdominal Pain Encounter Details Date Type Department Care Team (Late st Contact Info) Description 11/13/2014 10:34 PM EDT - 11/14/2014 4:00 AM EDT [place] [phone] Christine Mackey MD Abdominal pain, RLQ (right lower quadrant) Discharge [...] this encounter Discharge Instructions * Discharge Instructions* Nelly Jay - 11/14/2014 3:22 AM EDT Images from the original note were not included. [facility] Abdominal Pain: After Your Visit Your [...] more? Visit our health information library at [email or web address] - how to arabiao You can also view health information on [employer], your personal patient account. Log in or sign up today. Enter E907 in the search box to learn more about Abdominal Pain: After Your Visit. ?? [id number] [employer]. Care instructions adapted under license by [facility]. This care instruction is for use with your licensed healthcare professional. If you have questions about a medical condition or this instruction, always ask your healthcare professional. [employer] disclaims any warranty or liability for your use of this information. Content Version: 10.4.250938; Current as of: November 28, 2013 documented [...] PCP this afternoon who sent her to [facility] ED for evaluation and a CT scan [...] umbilical hernia. This report was reviewed by LEON CHRISTINE at 11/14/2014 2:58 AM Film and [...] am, negative urine dip. Then went to [facility] in [facility], labs done. Unable to perform CT at [...] EDT) Glucose, Urine Dipstick Negative Negative mg/dL CERNER MILLENNIUM Protein, Urine Dipstick Negative Negative mg/dL [...] Urine Dipstick Hazy(A) Clear CERNER MILLENNIUM Specific [place] Urine Automated 1.021 1.002 - 1.030 CERNER [...] In Lab Christine Mackey MD URINE ORDERABLES CERNER MILLENNIUM * CT abdomen & pelvis with [...] umbilical hernia. This report was reviewed by LEON CHRISTINE at 11/14/2014 2:58 AM Film and [...] noted with vacuum disc phenomenon. Procedure Note Leon Christine MD - 11/14/2014 EXAMINATION: CT Abdomen [...] umbilical hernia. This report was reviewed by LEON CHRISTINE at 11/14/2014 2:58 AM Film and [...] Mendez) documented in this encounter Care Teams Hse Specialist Relationship Specialty Start Date End Date Roula Bauman APRN PCP - General 11/14/14 07/05/24 documented as of this encounter
--- OUTSIDE RECORDS SUMMARY | 2024-07-13 14:05 | XMS_ITS | Encounter Summary ---
Author Organization [facility] [place] [address] Care Team Providers Care Swing Driver Name Role Phone LorenzoBhumi JOHN Primary Care Provider [phone] Reason for Visit * Reason Comments Low Back Pain Encounter Details Date Type Department Care Team (Late st Contact Info) Description 10/03/2013 8:00 AM EDT Office [place] [phone] Jahaira Hernandez, Sebastien Fraga MD [facility] [place] [address] Mechanical low back pain (Primary Dx) Discharge [...] years. Past treatments have included physical therapy, fcjs-pil-cqqlhpj medications, heat, and liniments. Unfortunately, none of [...] is a disabled woman who lives in [place], [place], with friends. She smokes 0.5 packs [...] Lumbago documented in this encounter Care Teams Swing Driver Relationship Specialty Start Date End Date Bhumi Ventura APRN [address] [facility] [place] [address] PCP - General 08/23/13 11/13/14 documented as of this encounter
--- OUTSIDE RECORDS SUMMARY | 2024-07-13 14:05 | XMS_ITS | Encounter Summary ---
Author Organization [facility] Address [address] [place] [address] Care Team Providers Care Rubber Printing Machine Operator Name Role Phone Unknown, Provider MD Primary Care Provider Unava ilable Encounter Details Date Type Department Care Team (Latest Contact Info) Description 07/04/2013 9:26 EST - 07/04/2013 23:59 EST Hospital Encounter [address] [address] Unknown, Provider, Discharge Disposition: Home or Self [...] Code Departure Means Destination Home or Self Group Home documented in this encounter Plan of Treatment Upcoming Encounters Date Type Department Care Team (Late st Contact Info) Description 08/07/2024 11:00 EST Telemedicine [facility] Endocrinology [address] [place] [address] Brenna Carmona MD [address] [facility] [address] [place] [address] documented as of this encounter Visit Diagnoses Not on filedocumented in this encounter Care Teams Rubber Printing Machine Operator Relationship Specialty Start Date End Date Unknown, ProviderMD PCP - General 03/30/13 03/11/19 documented as of this encounter
--- OUTSIDE RECORDS SUMMARY | 2024-07-13 14:05 | XMS_ITS | Encounter Summary ---
[place] [address] Care Team Providers Care Residential Framing Carpenter Name Role Phone Roula Bauman APRN Primary Care Provider Un available Reason for Referral * Consultation (Routine) - Closed Specialty Diagnoses / Procedures Referred By Alexia roger Referred To Contact Gastroenterology Diagnoses Special screening for malignant neoplasms, colon Procedures COLONOSCOPY Kyaw Ahn PA [address] [place] [address] [facility] Endoscopy [address] [place] [phone] Referral ID Status Reason Start Date Expiration Date V isits Requested Visits Authorized [id number] Closed Consult, Test & Treat 11/29/2023 11/28/2024 1 1 Encounter Details Date Type Department Care Team (Latest Contact Info) Description 11/29/2023 Transcribe Orders [place] [address] Kyaw Ahn PA [address] [place] [address] Special screening for malignant neoplasms, [...] colon documented in this encounter Care Teams Residential Framing Carpenter Relationship Specialty Start Date End Date Roula Bauman APRN PCP - General 11/14/14 07/05/24 documented as of this encounter
--- OUTSIDE RECORDS SUMMARY | 2024-07-13 14:05 | XMS_ITS | Encounter Summary ---
[place] [address] Care Team Providers Care Horse Rancher Name Role Phone Bhumi Ventura APRN Primary Care Provider [phone] [phone] Encounter Details Date Type Department Care Team (Late st Contact Info) Description 05/02/2013 Orders [place] [address] Jose C Marroquin, PA Social History Tobacco Use Types Packs/Day Years [...] on filedocumented in this encounter Care Teams Horse Rancher Relationship Specialty Start Date End Date Bhumi Ventura APRN [address] [place], [place] [id number] PCP - General 08/23/13 11/13/14 documented as of this encounter
--- OUTSIDE RECORDS SUMMARY | 2024-07-13 14:05 | XMS_ITS | Encounter Summary ---
Author Organization [facility] [place] [address] Care Team Providers Care Stud Master/Mistress Name Role Phone Lorenzo Bhumi LOPEZ Primary Care Provider [phone] Reason for Visit * Reason Comments Back Pain Encounter Details Date Type Department Care Team (Latest Contact Info) Description 02/26/2014 10:30 AM EDT Procedure [place] [address] [address] [facility] [place] [address] Lumbosacral spondylosis without myelopathy Discharge Disposition: Home [...] No 2. Patient states they have a ambulance driver paramedic to transport after procedure? Yes 3. Patient [...] the entire procedure. Arsen Paul DO, MPH [facility]-subspecialty board certification in Pain Medicine Attending Physician-Pain Management CC: Bhumi Lorenzo, RECORD PRESS SUPERVISOR [address] [place] [address] documented in this encounter Plan of Treatment [...] the entire procedure. Arsen Paul DO, MPH [facility]-subspecialty board certification in Pain Medicine Attending Physician-Pain Management CC: Bhumi Ventura, RECORD PRESS SUPERVISOR [address] [place] [address] Procedure Note Arsen Paul DO - 03/01/2014 [...] CC: Bhumi Ventura APRN [address] [place] [address] Arsen Allen DO PROCEDURE/MINOR SURG ICAL ORDERABLES [...] mg documented in this encounter Care Teams Stud Master/Mistress Relationship Specialty Start Date End Date Bhumi Ventura APRN [address] [place] [address] PCP - General 08/23/13 11/13/14 documented as of this encounter
--- OUTSIDE RECORDS SUMMARY | 2024-07-13 14:05 | XMS_ITS | Encounter Summary ---
Author Organization [facility] [place] [address] Care Team Providers Care Rat Culturist Name Role Phone Roula Bauman APRN Primary Care Provider Un available Encounter Details Date Type Department Care Team (Late st Contact Info) Description 2019 Ancillary Procedure Radiology Library at [facility] [place] [place] [address] Juan Manuel Eldridge MD [facility] [place] [address] Social History Tobacco Use Types Packs/Day Years [...] Ultrasound Study (2019 12:00 AM EDT) Narrative DEB VALVERDE - 12/21/2021 1:25 PM EDT This exam is auto-finalizing. It's purpose is for storage only. Juan Manuel Eldridge MD IMG FILM LIBRARY ORD ERABLES Performing Organization Address City/State/[facility] Co de Phone Number ABRAM [place], [place] documented in this encounter Visit Diagnoses Not on filedocumented in this encounter Care Teams Rat Culturist Relationship Specialty Start Date End Date Roula Bauman APRN PCP - General 11/14/14 07/05/24 documented as of this encounter
--- OUTSIDE RECORDS SUMMARY | 2024-07-13 14:05 | XMS_ITS | Encounter Summary ---
Author Organization [facility] Address [facility] [place] [address] Care Team Providers Care Airplane Gastank Liner Assembler Name Role Phone Roula Bauman APRN Primary Care Provider Un available Reason for Visit * Reason Comments Skin Lesion Encounter Details Date Type Department Care Team (Late st Contact Info) Description 09/29/2015 10:15 AM EDT Office Visit Dermatology at [facility] [address] [place] [address] Constance Hanley MD [facility] [address] [place] [address] Dermatofibroma; Prurigo nodularis Social History Tobacco Use [...] and signed by: Constance Hanley MD Dermatology [facility] documented in this encounter Plan of [...] chronicus documented in this encounter Care Teams Airplane Gastank Liner Assembler Relationship Specialty Start Date End Date Roula Bauman APRN PCP - General 11/14/14 07/05/24 documented as of this encounter
--- OUTSIDE RECORDS SUMMARY | 2024-07-13 14:05 | XMS_ITS | Encounter Summary ---
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[facility]); Chronic pain of both knees Social History [...] Contact Info) Description 08/07/2024 11:00 EST Telemedicine [facility] [place] [address] [place], [place] [address] Brenna Carmona MD [address] [place] [address] [place] [address] documented as of this encounter Procedures [...] FILIBERTO Interpretation Negative Negative 2018 15:22 EST [facility] Blood VENOUS BLOOD / Unknown Venipuncture / Unknown 05/22/2019 16:50 EST 05/22/2019 17:42 EST Narrative [facility] - 05/23/2019 15:22 EST Results were obtained with the INOVA NOVA Lite HEp-2 FILIBERTO Kit by indirect immunofluorescence. us Constantine Correia MD IMMUNOLOGY AND SEROLOG Y ORDERABLES Final Result [facility] [address] [place] [address] * RHEUMATOID FACTOR (05/22/2019 16:50 EST) Rheumatoid Factor 8.0 <12.5 IU/mL 05/23/2019 11:34 EST [facility] Blood VENOUS BLOOD / Unknown Venipuncture / Unknown 05/22/2019 16:50 EST 05/22/2019 17:42 EST Constantine Correia MD CHEMISTRY & BLOOD GAS ORDERABLES Final Result Performing Organization Address [facility] de Phone Number [facility] [address] [place] [address] * SSB ANTIBODIES BY JIMMIE (05/22/2019 16:50 EST) SSB Antibody 2.4 <20.0 Units 05/29/2019 12:52 EST [facility] Comment: ? Negative: <20.0 Units ? Weak Positive: 20.0 - 39.9 Units ? Moderate Positive: 40.0 - 80.0 Units ? Strong Positive: >80.0 Units Results were obtained with the ? QUANTA Lite SS-B JIMMIE. ??SS-B values obtained with different manufacturers' assay methods may not be used interchangeably. ??The magnitude of the reported IgG levels cannot be correlated to an endpoint titer. Blood VENOUS BLOOD / Unknown Venipuncture / Unknown 05/22/2019 16:50 EST 05/22/2019 17:42 EST Constantine Correia MD IMMUNOLOGY AND SEROLOG Y ORDERABLES Final Result Performing Organization Address [facility] de Phone Number [facility] [address] [place] [address] * SSA ANTIBODIES BY JIMMIE (05/22/2019 16:50 EST) SSA Antibody 1.3 <20.0 Units 05/29/2019 12:49 EST [facility] Comment: ? Negative: <20.0 Units ? Weak Positive: 20.0 - 39.9 Units ? Moderate Positive: 40.0 - 80.0 Units ? Strong Positive: >80.0 Units Results were obtained with the Interactive FateA Lite SS-A JIMMIE. ??SS-A values obtained with different manufacturers' assay methods may not be used interchangeably. ??The magnitude of the reported IgG levels cannot be correlated to an endpoint titer. 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
--- OUTSIDE RECORDS SUMMARY | 2024-07-13 14:05 | XMS_ITS | Encounter Summary ---
Author Organization [facility] Address [address] [place] [address] Care Team Providers Care Leave Manager Name Role Phone Lynne Ramírez JAVID Primary Care Provider [phone] Encounter Details Date Type Department Care Team (Late st Contact Info) Description 04/22/2020 Abstract [facility] [place] [address] [place], [place] [id number] Brenna Darnell MD [address] [facility] [address] [place] [phone] Social History Tobacco Use Types Packs/Day Years [...] Contact Info) Description 08/07/2024 11:00 EST Telemedicine [facility] [place] [address] [place] [address] Brenna Carmona MD [address] [place] [phone] documented as of this encounter Visit Diagnoses Not on filedocumented in this encounter Care Teams Leave Manager Relationship Specialty Start Date End Date Lynne Ramí[place] [address] PCP - General 03/12/19 09/04/23 documented as of this encounter
--- OUTSIDE RECORDS SUMMARY | 2024-07-13 14:05 | XMS_ITS | Encounter Summary ---
[place] [address] Care Team Providers Care Certified Coatings Inspector Name Role Phone Bhumi Ventura APRN Primary Care Provider [phone] Encounter Details Date Type Department Care Team (Late st Contact Info) Description 11/12/2013 Telephone [place] [phone] Laura Fishman LPN Social History Tobacco Use [...] Center Post-Procedure Phone Note Patient: Vanesa Marrero [id number] Post-procedure phone call from patient to report [...] on filedocumented in this encounter Care Teams Certified Coatings Inspector Relationship Specialty Start Date End Date Bhumi Ventura APRN [address] [place] [address] PCP - General 08/23/13 11/13/14 documented as of this encounter
--- OUTSIDE RECORDS SUMMARY | 2024-07-13 14:05 | XMS_ITS | Encounter Summary ---
[place] [address] Care Team Providers Care Systems Testing Laboratory Technician Name Role Phone Lorenzo Bhumi LOPEZ Primary Care Provider [phone] Encounter Details Date Type Department Care Team (Late st Contact Info) Description 10/12/2013 Telephone [place] [phone] Sena Castellano, RN Social History Tobacco Use [...] 1:23 PM regarding her upcoming appointment at [facility]. Message included the followin. Patient instructed to arrive at 0915 (30 minutes prior to procedure start time) on 10/19/13 (dateof procedure) with their drive away driver. 2. Following instructions left in the [...] on filedocumented in this encounter Care Teams Systems Testing Laboratory Technician Relationship Specialty Start Date End Date Bhumi Ventura APRN [address] [place] [address] PCP - General 08/23/13 11/13/14 documented as of this encounter
--- OUTSIDE RECORDS SUMMARY | 2024-07-13 14:05 | XMS_ITS | Encounter Summary ---
Author Organization [facility] [place] [address] Care Team Providers Care Mixer Helper Name Role Phone Roula Bauman APRN Primary Care Provider Un available Encounter Details Date Type Department Care Team (Late st Contact Info) Description 09/30/2021 Ancillary Procedure Radiology Library at [facility], [place] [address] Juan Manuel Eldridge MD [facility] [place] [address] Social History Tobacco Use Types Packs/Day Years [...] Abdomen Pelvis (09/30/2021 12:00 AM EDT) Narrative ABRAM - 12/21/2021 1:24 PM EDT This exam is auto-finalizing. It's purpose is for storage only. Juan Manuel Eldridge MD [facility]M LIBRARY ORD ERABLES Performing Organization Address City/State/[facility] Co de Phone Number [place], [place] documented in this encounter Visit Diagnoses Not on filedocumented in this encounter Care Teams Mixer Helper Relationship Specialty Start Date End Date Roula Bauman APRN PCP - General 11/14/14 07/05/24 documented as of this encounter
--- OUTSIDE RECORDS SUMMARY | 2024-07-13 14:05 | XMS_ITS | Encounter Summary ---
[place] [address] Care Team Providers Care Waste Removalist Name Role Phone LorenzoCasperBhumi JOHN Primary Care Provider [phone] Encounter Details Date Type Department Care Team (Late st Contact Info) Description 10/23/2013 Telephone [place] [phone] Sena Castellano, RN Social History Tobacco Use [...] on 10/26/13 (date of procedure) with their commercial driver. 2. Following instructions left in the [...] on filedocumented in this encounter Care Teams Waste Removalist Relationship Specialty Start Date End Date Bhumi Ventura APRN [address] [place], [place] [address] [address] PCP - General 08/23/13 11/13/14 documented as of this encounter
--- OUTSIDE RECORDS SUMMARY | 2024-07-13 14:05 | XMS_ITS | Encounter Summary ---
Author Organization [facility] [place] [address] Care Team Providers Care Traveling Operator Name Role Phone Jose Akhtar MD Primary Care Provider U ken Encounter Details Date Type Department Care Team (Late st Contact Info) Description 07/27/2013 Orders [place] [address] Sebastien Kathleen MD [facility] [place] [address] Bilateral knee pain (Primary Dx) Social History [...] leg documented in this encounter Care Teams Traveling Operator Relationship Specialty Start Date End Date Jose Akhtar MD PCP - General 05/19/10 08/22/13 documented as of this encounter
--- OUTSIDE RECORDS SUMMARY | 2024-07-13 14:06 | XMS_ITS | Encounter Summary ---
Author Organization [facility] [place] [address] Care Team Providers Care Slabbing Machine Operator Name Role Phone Jose Akhtar MD Primary Care Provider U ken Encounter Details Date Type Department Care Team (Late st Contact Info) Description 05/02/2013 Orders [place] [address] Sebastien Kathleen MD [facility] [place] [address] Social History Tobacco Use Types Packs/Day Years [...] on filedocumented in this encounter Care Teams Slabbing Machine Operator Relationship Specialty Start Date End Date Jose Akhtar MD PCP - General 05/19/10 08/22/13 documented as of this encounter
--- OUTSIDE RECORDS SUMMARY | 2024-07-13 14:06 | XMS_ITS | Encounter Summary ---
Author Organization [facility] [place] [address] Care Team Providers Care Pacu Rn Name Role Phone Roula Bauman APRN Primary Care Provider Un available Encounter Details Date Type Department Care Team (Late st Contact Info) Description 10/14/2005 [place] [address] Ty Graham MD [facility] [place] [address] Social History Tobacco Use Types Packs/Day Years [...] 2:21 PM EDT) Surgical Pathology Report [id number] ? Location: The signing pathologist has (i) examined the relevant preparation(s) for the specimen(s) and (ii) rendered or confirmed the diagnosis(es). . ?Pathology Addendum Report Addendum Discussion Molecular testing for mitochondrial disease has been performed by Latrice Leal of [facility]. For the full text of the [facility] report dated 12/24/2005, please refer to Non-DH [...] the muscle and including adjacent adipose tissue. [facility] 10/14/2005 2:21 PM EDT Ty Graham MD PATHOLOGY/CYTOLOGY O RDERABLES [facility] documented in this encounter Visit Diagnoses Not on filedocumented in this encounter Care Teams Pacu Rn Relationship Specialty Start Date End Date Roula Bauman APRN PCP - General 11/14/14 07/05/24 documented as of this encounter
[2024-07-13 16:00] LABS: ALT 25 U/L (14-59); AST 15 U/L (15-37); Albumin 3.3 g/dL (3.4-5.0); Alkaline Phosphatase 91 U/L (46-116); Anion Gap 8.3 mmol/L (3-11); BUN 12 mg/dL (7-18); Bilirubin, Total 0.35 mg/dL (0.2-1.0); CO2 28.7 mmol/L (21.0-32.0); Calcium 9.3 mg/dL (8.5-10.1); Calculated LDL 122 mg/dL (<100); Chloride 104 mmol/L (98-107); Cholesterol 227 mg/dL (<200); Estimated GFR 64.09 (mL/min/1.73m2); Glucose 106 mg/dL (74-106); HDL Cholesterol 55 mg/dL (40-60); Potassium 4.1 mmol/L (3.5-5.1); Sodium 141 mmol/L (136-145); Total Protein 6.5 g/dL (6.4-8.2); Triglyceride 254 mg/dL (<150)
[2024-07-13 16:02] LABS: HCT 44.6 % (36.0-46.0); HGB 14.6 g/dL (11.2-15.7); MCH 31.7 pg (27.0-33.0); MCV 97 fL (80-95); MPV 9.9 fL (8.0-11.0); Platelet Count 184 10^3/uL (130-400); RBC 4.61 10^6/uL (3.93-5.22); RDW 12.7 % (11.7-14.6); WBC 6.16 10^3/uL (4.4-10.8)
[2024-07-13 16:05] LABS: MCHC 32.7 % (32.0-36.0)
[2024-07-13 16:39] LABS: Hemoglobin A1C 5.5 % (<5.7)
== END 2024-07-13 13:58 | disposition home or self-care (01) ==
LOC: NCHCN 13:57
PROVIDERS: PCP Physician Assistant; Visit Provider Physician Assistant
DX: E03.9 Hypothyroidism, unspecified (principal); E78.2 Mixed hyperlipidemia; F17.210 Nicotine dependence, cigarettes, uncomplicated; Z13.1 Encounter for screening for diabetes mellitus
CPT/HCPCS: 80053; 80061; 85027; 83036; 84443

== ENCOUNTER 2024-08-03 00:07 | Outpatient (CLI) | payer MEDICARE, MEDICAID, SELFPAY ==
--- NOTE | 2024-08-03 | DI.MAMMO_ITS ---
Exam(s) MG MAMMO SCREENING 60 MIN DUR EXAM: MG MAMMO SCREENING 60 MIN DUR CLINICAL HISTORY: Screening, Z12.39 TECHNIQUE: Mammograms were interpreted according to the usual protocol including computer analysis w Shoop CAD system, tomosynthesis and C-view imaging. COMPARISON: 2015 through 2021 FINDINGS: The breasts are composed of scattered fibroglandular densities, Breast Density category B. No suspicious masses or suspicious microcalcifications are seen. Stable bilateral nodules. No skin thickening or abnormal axillary lymph nodes are seen. There has been no significant change from prior exams. IMPRESSION: BI-RADS Category 2 - Benign Findings Yearly screening mammography is recommended. Breast Density - Category B, scattered fibroglandular densities. A negative radiographic report should not delay biopsy if a dominant or clinically suspicious mass is present. Up to ten percent of cancers are not identified on mammography. A negative report may reinforce clinical impression. Adenosis and dense breasts may obscure an underlying neoplasm. False positive reports average 6 to 10%. Patient will receive a letter notifying them of these results.
--- OUTSIDE RECORDS SUMMARY | 2024-08-03 00:08 | XMS_ITS | Continuity of Care Document ---
Author Organization [facility] Address [address] [place] [address] Care Team Providers Care Enrober Name Role Phone PRAVEENA LOPEZ RPA Primary Care Physician Encounter [facility] NBR [id number] Date(s): 07/18/24 - 07/18/24 [facility] [address] [place] [address]- [place] Discharge Disposition: Home or Self Care Attending Physician: Kathleen Sethi DO Encounter Type: Clinic Allergies, Adverse Reactions, Alerts Substance Criticality Severity Reaction Reaction Severity Status gabapentin Unable to assess criticality Unknown Active NSAIDs Unable to assess criticality Unknown Active Medications Advair Diskus 250 mcg-50 mcg inhalation powder INHALE 2 PUFFS BY MOUTH TWO TIMES A DAY DIRECTED Start Date: 10/01/22 Status: Ordered Repeat number: 1 Albuterol (Eqv-Proventil HFA) 90 mcg/inh inhalation aerosol INHALE 2 PUFFS EVERY 4 TO 6 HOURS NEEDED FOR SHORTNESS OF BREATH COUGH WHEEZING Start Date: 10/01/22 Status: Ordered Repeat number: 1 ALPRAZolam 0.5 mg oral tablet 0.5 mg = 1 tab, Oral, PRN as needed for anxiety, 0 Refill(s) Start Date: 05/01/24 Status: Ordered Repeat number: 1 ALPRAZolam 3 mg oral tablet, extended release TAKE 1 TABLET BY MOUTH TWICE DAILY Start Date: 10/01/22 Status: Ordered Repeat number: 1 clomiPRAMINE 50 mg oral capsule TAKE FOUR CAPSULES BY MOUTH AT BEDTIME WITH DINNER Start Date: 10/01/22 Status: Ordered Repeat number: 1 levothyroxine 50 mcg (0.05 mg) oral capsule 50 mcg = 1 cap, Oral, Daily, # 30 cap, 0 Refill(s) Start Date: 05/01/24 Status: Ordered Quantity: 30.0 Unit: cap Repeat number: 1 naltrexone See Instructions, 25mg once daily, 0 Refill(s) Start Date: 05/01/24 Status: Ordered Repeat number: 1 omeprazole 20 mg oral delayed release capsule TAKE ONE CAPSULE BY MOUTH EVERY DAY Start Date: 10/01/22 Status: Ordered Repeat number: 1 Synthroid 200 mcg (0.2 mg) oral tablet TAKE ONE TABLET BY MOUTH ONCE DAILY Start Date: 10/01/22 Status: Ordered Repeat number: 1 Vitamin D3 1000 intl units oral capsule TAKE THREE CAPSULES BY MOUTH EVERY DAY Start Date: 10/01/22 Status: Ordered Repeat number: 1 Wellbutrin 100 mg =, Oral, BID, 0 Refill(s) Start Date: 05/01/24 Status: Ordered Repeat number: 1 Problem List Condition Confirmation Course Effective Dates Status H ealth Status Informant Musculoskeletal pain Confirmed Active Vital Signs Most recent to oldest [Reference Range]: 1 Peripheral Pulse Rate [60-100 bpm] 68 bp m (07/18/24 11:30 AM) Respiratory Rate [12-24 br/min] 20 br/mi n (07/18/24 11:30 AM) Blood Pressure [90-120/60-80 mmHg] 140/8 0mmHg *HI* (07/18/24 11:30 AM) Mean Arterial Pressure, Cuff [65-140 mmH g] 100 mmHg (07/18/24 11:30 AM) Weight 179.17 kg (07/18/24 11:30 AM) Weight Measured (lbs) 395.002 lb (07/18/24 11:30 AM) Weight Dosing 179.170 kg (07/18/24 11:30 AM) [place] Body Weight Calculated 59.3 kg (07/18/24 11:30 AM) Height 167.64 cm (07/18/24 11:30 AM) Height/Length Measured (inches) 66 inch (07/18/24 11:30 AM) BSA Measured 2.89 m2 (07/18/24 11:30 AM) Body Mass Index 63.75 kg/m2 (07/18/24 11:30 AM) Social History Social History Type Response Tobacco Current everyday tob acco user Tobacco Use:. 6 cigarettes per day per day. Sex Sex Representation Female (finding) Patient Care team information Care Team Personnel Name: PRAVEENA LOPEZ RPA Position: No Access Member Role: Primary Care Physician Address: [address] [place] [address] Telecom: Care Team Related Persons Name: HANNAH COOPER Insurance Providers Guarantor name: LEXUS COOPER Health Plan Information #: 2 Payer: [place] Member Number: [id number] Policy Number: NA Group Number: NA Health Plan Information #: 1 Payer: MEDICARE [facility] Member Number: [id number] Policy Number: NA Group Number: NA
--- OUTSIDE RECORDS SUMMARY | 2024-08-03 00:09 | XMS_ITS | Encounter Summary ---
Author Organization [facility] Address [address] [place] [address] Care Team Providers Care Meat Cooler Name Role Phone Mariaelena Garces STILL OPERATOR Unavailable [phone] Kyaw Ahn RPA Primary Care Provider [phone] Reason for Visit * Reason Comments Follow-up Hypothyroidism Encounter Details Date Type Department Care Team (Latest Contact Info) Description 02/07/2024 11:30 EDT Office Visit [facility] Endocr[facility]ology [address] [place] [address] Brenna Carmona MD [address] [place] [address] [place] [phone] Postprocedural hypothyroidism (Primary Dx); History of [...] Problem List Diagnosis Sleep apnea Morbid obesity ([facility]) Mechanical low back pain Lumbosacral spondylosis without myelopathy Depression Bilateral knee pain Tobacco dependence Liver lesion Fatigue Aneurysm ([facility]) History of thyroid cancer Myopathy Myofascial pain IFG (impaired fasting glucose) Hyperlipidemia, unspecified History of nicotine dependence NSAID long-term use Osteoarthritis of both knees Panic disorder Prurigo nodularis Spondylosis of lumbar spine Stage 3 chronic kidney disease ([facility]) Pain in joint, lower leg Postprocedural hypothyroidism [...] 0.5 Tablets by mouth 2 times daily. Evyeu-7-[id number]-EPA-Fish Oil 1,200 (144-216) mg capsule Take 2 [...] Imaging Results: Lab Results Component Value Date [id number] 10/19/2021 Assessment and Plan: - Hypothyroidism: [...] Info) Description 08/07/2024 11:[address] [facility] Endocrinology [address] [place] [address] Brenna Carmona MD [address] [facility] [address] [place] [phone] documented as of this encounter Results * THYROGLOBULIN, TUMOR MARKER, S (02/07/2024 12:29 EDT) Thyroglobulin Antibody, S <1.8 <1.8 IU/mL 02/08/2024 19:55 EDT [facility] Thyroglobulin, Tumor Marker <0.1 ng/mL 02/08/2024 19:55 EDT [facility] Comment: REFERENCE VALUE Athyrotic <0.1 Intact Thyroid <=33 Thyroglobulin Interpretation SEE NOTE 02/08/2024 19:55 EDT [facility] Comment: Thyroglobulin (Tg) levels must be [...] testing methods are immunoenzymatic assays manufactured by [employer] and performed on the [employer] DXI 800. Values obtained from different assay methods or kits may be different and cannot be used interchangeably. The results cannot be interpreted as absolute evidence for the presence or absence of malignant disease. Test Performed by: [facility] [address] [place] [address] Occupational Therapist Assistants: Hardik Simon Ph.D.; CLIA# [id number] Blood VENOUS BLOOD / Unknown Venipuncture / Unknown 02/07/2024 12:29 EDT 02/07/2024 13:49 EDT us Brenna Griffin MD CHEMISTRY & BLOOD GAS ORDERABLES Final Result Performing Organization Address City/[facility]/ZIP Co de Phone Number [facility] [address] [place] [address] * (ABNORMAL) THYROID CASCADE (02/07/2024 12:29 EDT) TSH 7.38(H) 0.47 - 4.68 mIU/L 02/07/2024 14:49 EDT [facility] Blood VENOUS BLOOD / Unknown Venipuncture / Unknown 02/07/2024 12:29 EDT 02/07/2024 13:49 EDT Narrative [facility] - 02/07/2024 14:49 EDT NOTE: The results of this assay can be falsely lowered due to the consumption of Biotin. us Brenna Griffin MD CHEMISTRY & BLOOD GAS ORDERABLES Final Result Performing Organization Address City/[facility]/ZIP Co de Phone Number [facility] [address] [place] [address] documented in this encounter Visit Diagnoses Diagnosis Postprocedural hypothyroidism- Primary Postsurgical hypothyroidism History of thyroid cancer Personal history of malignant neoplasm of thyroid documented in this encounter Care Teams Meat Cooler Relationship Specialty Start Date End Date Kyaw Ahn RPA [address] [place] [address] PCP - General Family Medicine - Primary Care 09/05/23 Mariaelena Garces NP [address] [facility] [address] [place] [phone] Nurse Practitioner Endocrinology, Diabetes and Metabolism 07/20/21 documented as of this encounter
--- OUTSIDE RECORDS SUMMARY | 2024-08-03 00:09 | XMS_ITS | Encounter Summary ---
Author Organization [facility] Address [address] [place] [address] Care Team Providers Care Chainstitch Elastic Attacher Name Role Phone Unknown, Provider MD Primary Care Provider Unava ilable Encounter Details Date Type Department Care Team (Late st Contact Info) Description 07/04/2013 Results Only [facility] - [facility] [address] [place] [id number] Devin Hawkins MD [address] [place] [id number] Social History Tobacco Use Types Packs/Day Years [...] Contact Info) Description 08/07/2024 11:00 EST Telemedicine [facility] Endocrinology [address] [place] [address] Brenna Carmona MD 62 [facility] [address] [place] [phone] documented as of this encounter Procedures Procedure Name Priority Date/Time Associated Diagnosis Comments SURGICAL PATHOLOGY Routine 07/04/2013 15 :22 EST documented in this encounter Results * SURGICAL PATHOLOGY (07/04/2013 15:22 EST) Pathologist [facility] Pathology Report: SURGICAL PATHOLOGY REPORT Reports generated [...] dysplasia. - ??Submucosal reactive changes. Comment: ? Floor Covering Printer sections of this case were reviewed at [...] Final Resul t [facility] [address] [place] [address] documented in this encounter Visit Diagnoses Not on filedocumented in this encounter Care Teams Chainstitch Elastic Attacher Relationship Specialty Start Date End Date Unknown, Provider, PCP - General 03/30/13 03/11/19 documented as of this encounter
--- OUTSIDE RECORDS SUMMARY | 2024-08-03 00:09 | XMS_ITS | Encounter Summary ---
Author Organization [facility] Address [address] [place] [address] Care Team Providers Care Movie Star Name Role Phone Lynne Ramírez JAVID Primary Care Provider [phone] Reason for Visit * Reason Onset Date Comments Results 08/25/2020 TSH Encounter Details Date Type Department Care Team (Late st Contact Info) Description 08/25/2020 Telephone [facility] Endocrinology [address] [place] [address] Brenna Darnell MD [address] [facility] [address] [place] [address] Results (TSH) Social History Tobacco [...] Contact Info) Description 08/07/2024 11:00 EST Telemedicine [facility] Endocrinology [address] [place] [address] Brenna Carmona MD [address] [place] [phone] documented as of this encounter Visit Diagnoses Not on filedocumented in this encounter Discontinued Medications Medication Sig Discontinue Reason Start Date End Da te levothyroxine (SYNTHROID) 200 mcg tablet Take 200 mcg by mouth daily. Reorder 08/25/2020 documented as of this encounter Care Teams Movie Star Relationship Specialty Start Date End Date Lynne Ramírez FNP [address] [place] [address] [place] [address] PCP - General 03/12/19 09/04/23 documented as of this encounter
--- OUTSIDE RECORDS SUMMARY | 2024-08-03 00:09 | XMS_ITS | Encounter Summary ---
Author Organization [facility] Address [address] [place] [address] Care Team Providers Care Bushing And Broach Operator Name Role Phone Lynne Ramírez JAVID Primary Care Provider [phone] Mariaelena Goins DISCOUNT CLERK Unavailable [phone] Reason for Visit * Reason Onset Date Comments Thyroid Problem 12/25/2021 Encounter Details Date Type Department Care Team (Late st Contact Info) Description 12/25/2021 Telephone [facility] Endocrinology [address] [place] [address] Phoebe Lew RN Thyroid Problem Social History [...] Goins NP - 12/25/2021 1108 EDT Sent [employer] message. * Telephone Encounter - Phoebe Lew RN - 12/25/2021 0974 EDT States she had labs done at [facility] and tsh was high- taking daily on an empty stomach- no vitamins around taking med. No recent illness- taking brand synthroid and liothyronine as med list states- whatto do with dose ? - can respond via [employer] documented in this encounter Plan of Treatment Upcoming Encounters Date Type Department Care Team (Late st Contact Info) Description 08/07/2024 11:00 EST Telemedicine [facility] Endocrinology [address] [place] [address] Brenna Carmona MD [address] [place] [phone] documented as of this encounter Visit Diagnoses Not on filedocumented in this encounter Historical Medications * This list may reflect changes made after this encounter. levothyroxine (SYNTHROID) 200 mcg tablet every 24 hours. 01/27/2022 added in this encounter Care Teams Bushing And Broach Operator Relationship Specialty Start Date End Date Lynne Ramírez FNP [address] [place] [address] [place] [address] PCP - General 03/12/19 09/04/23 Mariaelena Goins NP [address] [place] [phone] Nurse Practitioner Endocrinology, Diabetes and Metabolism 07/20/21 documented as of this encounter
--- OUTSIDE RECORDS SUMMARY | 2024-08-03 00:09 | XMS_ITS | Encounter Summary ---
Author Organization [facility] Address [address] [place] [address] Care Team Providers Care Forestry Foreman Name Role Phone Unavailable Primary Care Provider Unavailabl e Encounter Details Date Type Department Care Team (Late st Contact Info) Description 03/28/2013 Results Only [facility] - [facility] [address] [place] [address] Rudy Latif, [address] [facility] ,[address] [place] [address] Social History Tobacco Use Types [...] Contact Info) Description 08/07/2024 11:00 EST Telemedicine [facility] Endocrinology [address] [place], [place] [address] Brenna Carmona MD [address] [facility] [address] [place] [address] documented as of this encounter [...] ? VANESA COOPER ? Accession #: ? [id number] ? : ? 1965 (Age: 48) ??F [...] Fi nal Result [facility] [address] [place] [address] documented in this encounter Visit Diagnoses Not on filedocumented in this encounter
--- OUTSIDE RECORDS SUMMARY | 2024-08-03 00:09 | XMS_ITS | Encounter Summary ---
Author Organization [facility] Address [address] [place] [address] Care Team Providers Care Body Cleaner Name Role Phone Mariaelena Garces SEED CLEANER Unavailable [phone] Kyaw Ahn RPA Primary Care Provider [phone] Reason for Visit * Reason Onset Date Comments Medications Refill 12/26/2023 Encounter Details Date Type Department Care Team (Late st Contact Info) Description 12/26/2023 Refill [facility] Endocrinology [address] [place] [address] Samantha Mcguire, M[place]RIS [address] [place] [address] Medications Refill Social History Tobacco Use Types [...] Contact Info) Description 08/07/2024 11:00 EST Telemedicine [facility] Endocrinology [address] [place] [address] Brenna Carmona MD 62 [facility] [address] [place] [phone] documented as of this encounter Visit Diagnoses Not on filedocumented in this encounter Discontinued Medications Medication Sig Discontinue Reason Start Date End Da te levothyroxine (SYNTHROID) 25 mcg tablet Take one extra tablet of 25 mcg three times a week (she is to continue with 200 mcg every day) Reorder 09/05/2023 12/26/2023 documented as of this encounter Care Teams Body Cleaner Relationship Specialty Start Date End Date Kywa Ahn RPA [address] [place] [address] [address] [place] [address] PCP - General Family Medicine - Primary Care 09/05/23 Mariaelena Garces NP [address] [facility] [address] [place] [address] Nurse Practitioner Endocrinology, Diabetes and Metabolism 07/20/21 documented as of this encounter
--- OUTSIDE RECORDS SUMMARY | 2024-08-03 00:09 | XMS_ITS | Encounter Summary ---
Author Organization [facility] Address [address] [place] [address] Care Team Providers Care Consulting Database Administrator Name Role Phone Mariaelena Garces FRONT DESK LEAD Unavailable [phone] Kywa Ahn RPA Primary Care Provider [phone] Encounter Details Date Type Department Care Team (Late st Contact Info) Description 09/05/2023 Orders Only [facility] Endocrinology [address] [place], [place] [id number] Brenna Carmona MD [employer] [address] [place] [address] Social History Tobacco Use Types [...] Contact Info) Description 08/07/2024 11:00 EST Telemedicine [facility] Endocrinology [address] [place] [address] Brenna Carmona MD 62 [facility] [address] [place] [phone] documented as of this encounter Visit Diagnoses Not on filedocumented in this encounter Care Teams Consulting Database Administrator Relationship Specialty Start Date End Date Kyaw Ahn RPA [address] [facility] [address] [place] [address] PCP - General Family Medicine - Primary Care 09/05/23 Mariaelena Garces NP [address] [facility] [address] [place] [phone] Nurse Practitioner Endocrinology, Diabetes and Metabolism 07/20/21 documented as of this encounter
--- OUTSIDE RECORDS SUMMARY | 2024-08-03 00:09 | XMS_ITS | Encounter Summary ---
Author Organization [facility] Address [address] [place] [address] Care Team Providers Care Display Coordinator Name Role Phone Unknown, Provider MD Primary Care Provider Unava ilable Encounter Details Date Type Department Care Team (Latest Contact Info) Description 07/04/2013 9:26 EST - 07/04/2013 23:59 EST Hospital Encounter [address] [address] Unknown, Provider, Discharge Disposition: Home or Self [...] Code Departure Means Destination Home or Self Mcfp documented in this encounter Plan of Treatment Upcoming Encounters Date Type Department Care Team (Late st Contact Info) Description 08/07/2024 11:[address] [facility] Endocrinology [address] [place] [address] Brenna Carmona MD [address] [facility] [address] [place] [address] documented as of this encounter Visit Diagnoses Not on filedocumented in this encounter Care Teams Display Coordinator Relationship Specialty Start Date End Date Unknown, ProviderMD PCP - General 03/30/13 03/11/19 documented as of this encounter
--- OUTSIDE RECORDS SUMMARY | 2024-08-03 00:09 | XMS_ITS | Encounter Summary ---
Author Organization [facility] Address [address] [place] [address] Care Team Providers Care Senior Interactive Producer Name Role Phone Mariaelena Garces GRAB JACK MAN Unavailable [phone] Kyaw Ahn RPA Primary Care Provider [phone] Reason for Visit * Reason Onset Date Comments Medications Refill 04/30/2024 Encounter Details Date Type Department Care Team (Late st Contact Info) Description 04/30/2024 Telephone [facility] [place] [address] [place] [address] Samantha Mcguire, MORRIS [address] [place] [address] Medications Refill Social History Tobacco Use Types [...] Contact Info) Description 08/07/2024 11:00 EST Telemedicine [facility] Endocrinology [address] [place], [place] [address] Brenna Carmona MD [address] [place] [phone] documented as of this encounter Visit Diagnoses Not on filedocumented in this encounter Discontinued Medications Medication Sig Discontinue Reason Start Date End Da te SYNTHROID 200 mcg tablet TAKE ONE TABLET BY MOUTH EVERY DAY Reorder 11/24/2023 04/30/2024 documented as of this encounter Care Teams Senior Interactive Producer Relationship Specialty Start Date End Date Kyaw Ahn RPA [address] [place] [address] PCP - General Family Medicine - Primary Care 09/05/23 Mariaelena Garces NP 130 [facility] 3 [place] [phone] Nurse Practitioner Endocrinology, Diabetes and Metabolism 07/20/21 documented as of this encounter
--- OUTSIDE RECORDS SUMMARY | 2024-08-03 00:09 | XMS_ITS | Encounter Summary ---
Author Organization [facility] Address [address] [place] [address] Care Team Providers Care Head Rigger Name Role Phone Lynne Ramírez JAVID Primary Care Provider Mariaelena Garces SURVEILLANCE CAMERA TECHNICIAN Unavailable [phone] Reason for Visit * Reason Comments Thyroid Problem Encounter Details Date Type Department Care Team (Late st Contact Info) Description 07/29/2021 10:00 EST Telemedicine [facility] Endocrinology [address] [place] [address] Brenna Darnell MD 130 [facility] [address] [place] [address] Hypothyroidism, postablative (Primary Dx); History [...] Brenna Pope MD - 07/29/2021 1000 EST [facility] Video Visit Today's visit was provided through [...] Contact Info) Description 08/07/2024 11:00 EST Telemedicine [facility] Endocrinology [address] [place] [address] Brenna Carmona MD [address] [place] [phone] documented as of this encounter Visit Diagnoses Diagnosis Hypothyroidism, postablative- Primary Other postablative hypothyroidism History of thyroid cancer Personal history of malignant neoplasm of thyroid documented in this encounter Care Teams Head Rigger Relationship Specialty Start Date End Date Lynne Ramírez FNP [address] [place] [address] PCP - General 03/12/19 09/04/23 Mariaelena Garces NP [address] [place] [address] Nurse Practitioner Endocrinology, Diabetes and Metabolism 07/20/21 documented as of this encounter
--- OUTSIDE RECORDS SUMMARY | 2024-08-03 00:09 | XMS_ITS | Encounter Summary ---
Author Organization [facility] Address [address] [place] [address] Care Team Providers Care Yard Stocker Name Role Phone Mariaelena Garces CHEF DE FROID Unavailable [phone] Kyaw Ahn RPA Primary Care Provider [phone] Reason for Visit * Reason Onset Date Comments Medications Refill 05/07/2024 Encounter Details Date Type Department Care Team (Late st Contact Info) Description 05/07/2024 Telephone [facility] [place] [address] [place] [address] Chayito Villegas RN Medications Refill Social History [...] encounter Miscellaneous Notes * Telephone Encounter - Chaiyto Villegas, RN - 05/07/2024 1759 EST Visits up to date; refilled documented in this encounter Plan of Treatment Upcoming Encounters Date Type Department Care Team (Late st Contact Info) Description 08/07/2024 11:00 EST Telemedicine [facility] Endocrinology [address] [place] [address] Brenna Carmona MD 62 [facility] [address] [place] [phone] documented as of this encounter Visit Diagnoses Not on filedocumented in this encounter Discontinued Medications Medication Sig Discontinue Reason Start Date End Da te SYNTHROID 200 mcg tablet Take 1 Tablet by mouth daily. Reorder 04/30/2024 05/07/2024 documented as of this encounter Care Teams Yard Stocker Relationship Specialty Start Date End Date Kyaw Ahn RPA 185 [facility] [address] [place] [address] PCP - General Family Medicine - Primary Care 09/05/23 Mariaelena Garces NP 130 [facility] [address] [place] [phone] Nurse Practitioner Endocrinology, Diabetes and Metabolism 07/20/21 documented as of this encounter
--- OUTSIDE RECORDS SUMMARY | 2024-08-03 00:09 | XMS_ITS | Encounter Summary ---
Author Organization [facility] Address [address] [place] [address] Care Team Providers Care Court Operations Clerk Name Role Phone MonicaLynne stark JAVID Primary Care Provider [phone] Mariaelena Garces FIELD CROP FARMING SUPERVISOR Unavailable [phone] Kyaw Ahn RPA Primary Care Provider [phone] Reason for Visit * Reason Onset Date Comments Medications Refill 05/26/2023 Encounter Details Date Type Department Care Team (Late st Contact Info) Description 05/26/2023 Refill [facility] Endocrinology [address] [place] [address] Samantha Mcguire, MORRIS [address] [place] [address] Medications Refill Social History Tobacco Use Types [...] Contact Info) Description 08/07/2024 11:00 EST Telemedicine [facility] Endocrinology [address] [place] [address] Brenna Carmona MD 62 [facility] [address] [place] [address] documented as of this encounter Visit Diagnoses Not on filedocumented in this encounter Discontinued Medications Medication Sig Discontinue Reason Start Date End Da te levothyroxine (SYNTHROID) 200 mcg tablet Take 1 Tablet by mouth daily. Branded name necessary Reorder 05/19/2022 05/26/2023 documented as of this encounter Care Teams Court Operations Clerk Relationship Specialty Start Date End Date Lynne Ramírez FNP [address] [facility] [place], [place] [id number] PCP - General 03/12/19 09/04/23 Kyaw Ahn RPA 185 [facility] [address] [place], [place] [phone] PCP - General Family Medicine - Primary Care 09/05/23 Mariaelena Garces NP [address] [place] [address] Nurse Practitioner Endocrinology, Diabetes and Metabolism 07/20/21 documented as of this encounter
--- OUTSIDE RECORDS SUMMARY | 2024-08-03 00:09 | XMS_ITS | Encounter Summary ---
Author Organization [facility] Address [address] [place] [address] Care Team Providers Care Film Mounter Name Role Phone Lynne Ramírez JAVID Primary Care Provider [phone] Mariaelena Garces BUSINESS SERVICES ASSISTANT Unavailable [phone] Kyaw Ahn RPA Primary Care Provider [phone] Encounter Details Date Type Department Care Team (Late st Contact Info) Description 03/18/2020 Lab Requisition [facility] Pathology & Laboratory Medicine - [address] [address] Outr Resulting Lab, Provider Social History Tobacco [...] Info) Description 08/07/2024 11:00 EST Telemedicine [facility] Endocrinology [address] [place], [place] [address] Brenna Carmona MD [address] [phone] documented as of this encounter Procedures Procedure Name Priority Date/Time Associated Diagnosis Comments ANTI THYROGLOBULIN Routine 03/17/2020 9:51 EDT documented in this encounter Results * ANTI THYROGLOBULIN (03/17/2020 9:51 EDT) Anti-Thyroglob ulin <15 <=60 U/mL 03/19/2020 12:05 EDT [facility] Blood VENOUS BLOOD / Unknown 03/17/2020 9:51 EDT 03/18/2020 21:10 EDT us Provider Outr Resulting Lab CHEMISTRY & BLOOD GA S ORDERABLES Final Result Performing Organization Address City/State/[facility] Co de Phone Number [facility] [address] [place] [address] documented in this encounter Visit Diagnoses Not on filedocumented in this encounter Care Teams Film Mounter Relationship Specialty Start Date End Date Lynne Ramírez FNP [address] [place] [id number] PCP - General 03/12/19 09/04/23 Kyaw Ahn RPA 185 [facility] [address] [place], [place] [phone] PCP - General Family Medicine - Primary Care 09/05/23 Mariaelena Garces NP 130 [facility] [address] [place] [phone] Nurse Practitioner Endocrinology, Diabetes and Metabolism 07/20/21 documented as of this encounter
--- OUTSIDE RECORDS SUMMARY | 2024-08-03 00:09 | XMS_ITS | Encounter Summary ---
Author Organization [facility] Address [address] [place] [address] Care Team Providers Care Paper Mill Superintendent Name Role Phone Mariaelena Garces HEALTHCARE MANAGEMENT CONSULTANT Unavailable [phone] Kyaw Ahn RPA Primary Care Provider [phone] Encounter Details Date Type Department Care Team (Late st Contact Info) Description 02/07/2024 Orders Only [facility] Endocrinology [address] [place], [place] [phone] Brenna Carmona MD [email or web address] [address] [place] [address] Social History Tobacco Use Types [...] Contact Info) Description 08/07/2024 11:00 EST Telemedicine [facility] Endocrinology [address] [place] [address] Brenna Carmona MD 62 [facility] [address] [place] [phone] documented as of this encounter Visit Diagnoses Not on filedocumented in this encounter Discontinued Medications Medication Sig Discontinue Reason Start Date End Da te levothyroxine (SYNTHROID) 25 mcg tablet Take one extra tablet of 25 mcg three times a week (she is to continue with 200 mcg every day) 12/26/2023 02/07/2024 documented as of this encounter Care Teams Paper Mill Superintendent Relationship Specialty Start Date End Date Kyaw Ahn RPA [address] [place] [address] [address] [place] [address] PCP - General Family Medicine - Primary Care 09/05/23 Mariaelena Garces NP 130 [facility] [address] [place] [phone] Nurse Practitioner Endocrinology, Diabetes and Metabolism 07/20/21 documented as of this encounter
--- OUTSIDE RECORDS SUMMARY | 2024-08-03 00:09 | XMS_ITS | Encounter Summary ---
Author Organization [facility] Address [address] [place] [address] Care Team Providers Care Oracle Endeca Consultant Name Role Phone Mariaelena Garces MANAGER POST Unavailable [phone] Kyaw Ahn RPA Primary Care Provider [phone] Reason for Visit * Reason Onset Date Comments Medication Management 09/05/2023 Encounter Details Date Type Department Care Team (Late st Contact Info) Description 09/05/2023 Telephone [facility] [place] [address] [place] [address] Chayito Villegas, public safety police Management Social History Tobacco Use Types Packs/Day [...] scanned into patient's chart. Fax received from [facility] in [facility] and scanned into patient's chart. Sending to Dr. Carmona for guidance. documented in this encounter Plan of Treatment Upcoming Encounters Date Type Department Care Team (Late st Contact Info) Description 08/07/2024 11:00 EST Telemedicine [facility] Endocrinology [address] [place], [place] [address] Brenna Carmona MD [address] [phone] documented as of this encounter Visit Diagnoses Not on filedocumented in this encounter Care Teams Oracle Endeca Consultant Relationship Specialty Start Date End Date Kyaw Ahn RPA [address] [address] PCP - General Family Medicine - Primary Care 09/05/23 Mariaelena Garces NP 130 [facility] [address] [place] [phone] Nurse Practitioner Endocrinology, Diabetes and Metabolism 07/20/21 documented as of this encounter
--- OUTSIDE RECORDS SUMMARY | 2024-08-03 00:09 | XMS_ITS | Encounter Summary ---
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[facility]); Chronic pain of both knees Social History [...] Contact Info) Description 08/07/2024 11:00 EST Telemedicine [facility] [place] [address] [place], [place] [address] Brenna Carmona MD [address] [place] [address] [place] [phone] documented as of this encounter Procedures [...] FILIBERTO Interpretation Negative Negative 2018 15:22 EST [facility] Blood VENOUS BLOOD / Unknown Venipuncture / Unknown 05/22/2019 16:50 EST 05/22/2019 17:42 EST Narrative [facility] - 05/23/2019 15:22 EST Results were obtained with the INOVA NOVA Lite HEp-2 FILIBERTO Kit by indirect immunofluorescence. us Constantine Correia MD IMMUNOLOGY AND SEROLOG Y ORDERABLES Final Result [facility] [address] [place] [address] * RHEUMATOID FACTOR (05/22/2019 16:50 EST) Rheumatoid Factor 8.0 <12.5 IU/mL 05/23/2019 11:34 EST [facility] Blood VENOUS BLOOD / Unknown Venipuncture / Unknown 05/22/2019 16:50 EST 05/22/2019 17:42 EST Constantine Correia MD CHEMISTRY & BLOOD GAS ORDERABLES Final Result Performing Organization Address [facility] de Phone Number [facility] [address] [place] [address] * SSB ANTIBODIES BY JIMMIE (05/22/2019 16:50 EST) SSB Antibody 2.4 <20.0 Units 05/29/2019 12:52 EST [facility] Comment: ? Negative: <20.0 Units ? Weak Positive: 20.0 - 39.9 Units ? Moderate Positive: 40.0 - 80.0 Units ? Strong Positive: >80.0 Units Results were obtained with the [employer] QUANTA Lite SS-B JIMMIE. ??SS-B values obtained with different manufacturers' assay methods may not be used interchangeably. ??The magnitude of the reported IgG levels cannot be correlated to an endpoint titer. Blood VENOUS BLOOD / Unknown Venipuncture / Unknown 05/22/2019 16:50 EST 05/22/2019 17:42 EST Constantine Correia MD IMMUNOLOGY AND SEROLOG Y ORDERABLES Final Result Performing Organization Address [facility] de Phone Number [facility] [address] [place] [address] * SSA ANTIBODIES BY JIMMIE (05/22/2019 16:50 EST) SSA Antibody 1.3 <20.0 Units 05/29/2019 12:49 EST [facility] Comment: ? Negative: <20.0 Units ? Weak Positive: 20.0 - 39.9 Units ? Moderate Positive: 40.0 - 80.0 Units ? Strong Positive: >80.0 Units Results were obtained with the Heroes2uA Lite SS-A JIMMIE. ??SS-A values obtained with different manufacturers' assay methods may not be used interchangeably. ??The magnitude of the reported IgG levels cannot be correlated to an endpoint titer. 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
--- OUTSIDE RECORDS SUMMARY | 2024-08-03 00:09 | XMS_ITS | Encounter Summary ---
Author Organization [facility] Address [address] [place] [address] Care Team Providers Care Osteopathic Neurologist Name Role Phone Lynne Ramírez JAVID Primary Care Provider [phone] Reason for Visit * Reason Onset Date Comments Medications Refill 03/23/2021 Encounter Details Date Type Department Care Team (Late st Contact Info) Description 03/23/2021 Telephone [facility] Endocrinology [address] [place] [address] Samantha Mcguire, MORRIS [address] [place] [address] Medications Refill Social History Tobacco Use Types [...] Contact Info) Description 08/07/2024 11:00 EST Telemedicine [facility] Endocrinology [address] [place] [address] Brenna Carmona MD [address] [place] [phone] documented as of this encounter Visit Diagnoses Not on filedocumented in this encounter Discontinued Medications Medication Sig Discontinue Reason Start Date End Da te levothyroxine (SYNTHROID) 200 mcg tablet Take 1 Tablet by mouth daily. Branded name necessary Reorder 01/26/2021 03/23/2021 documented as of this encounter Care Teams Osteopathic Neurologist Relationship Specialty Start Date End Date Lynne Ramírez FNP [place] [address] PCP - General 03/12/19 09/04/23 documented as of this encounter
--- OUTSIDE RECORDS SUMMARY | 2024-08-03 00:09 | XMS_ITS | Encounter Summary ---
Author Organization [facility] Address [address] [place] [address] Care Team Providers Care Job Honer Name Role Phone Lynne Ramírez JAVID Primary Care Provider [phone] Mariaelena Garces TANK CREWMEMBER Unavailable [phone] Reason for Visit * Reason Onset Date Comments Medications Refill 12/16/2021 Encounter Details Date Type Department Care Team (Late st Contact Info) Description 12/16/2021 Refill [facility] Endocrinology [address] [place] [address] Charlene Ha RN Medications Refill Social History [...] Contact Info) Description 08/07/2024 11:00 EST Telemedicine [facility] Endocrinology [address] [place], [place] [address] Brenna Carmona MD [address] [place] [address] [address] [place] [address] documented as of this encounter [...] documented as of this encounter Care Teams Job Honer Relationship Specialty Start Date End Date Lynne Ramírez FNP [facility] [place] [address] PCP - General 03/12/19 09/04/23 Mariaelena Garces NP 130 [facility] [address] [place] [phone] Nurse Practitioner Endocrinology, Diabetes and Metabolism 07/20/21 documented as of this encounter
--- OUTSIDE RECORDS SUMMARY | 2024-08-03 00:09 | XMS_ITS | Encounter Summary ---
Author Organization [facility] Address [address] [place] [address] Care Team Providers Care Rental Car Ferry Driver Name Role Phone Lynne Ramírez JAVID Primary Care Provider [phone] Mariaelena Garces BILLET ASSEMBLER Unavailable [phone] Kyaw Ahn RPA Primary Care Provider [phone] Encounter Details Date Type Department Care Team (Late st Contact Info) Description 10/20/2021 Lab Requisition [facility] Pathology & Laboratory Medicine - [facility] [address] [place] [address] Outr Resulting Lab, Provider Social History Tobacco [...] Contact Info) Description 08/07/2024 11:00 EST Telemedicine [facility] Endocrinology [address] [place] [address] Brenna Carmona MD [address] [place] [address] [place] [phone] documented as of this encounter Procedures Procedure Name Priority Date/Time Associated Diagnosis Comments HOLD SST Today 10/19/2021 9:21 EDT HOLD SST Today 10/19/2021 9:21 EDT LYME AB Today 10/19/2021 9:21 EDT ANTI THYROGLOBULIN Today 10/19/2021 9:21 EDT T3, TOTAL Today 10/19/2021 9:21 EDT documented in this encounter Results * HOLD SST (10/19/2021 9:21 EDT) Hold Hold 10/20/2021 18:01 EDT [facility] Blood VENOUS BLOOD / Unknown 10/19/2021 9:21 EDT 10/20/2021 16:56 EDT us Provider Outr Resulting Lab LAB INFO SERVICE AND SUPPORT & PHONE RESULT Final Result [facility] [address] [place] [address] * HOLD SST (10/19/2021 9:21 EDT) Hold Hold 10/20/2021 18:01 EDT [facility] Blood VENOUS BLOOD / Unknown 10/19/2021 9:21 EDT 10/20/2021 16:56 EDT us Provider Outr Resulting Lab LAB INFO SERVICE AND SUPPORT & PHONE RESULT Final Result Performing Organization Address City/[facility]/ZIP Co de Phone Number [facility] [address] [place] [address] * T3, TOTAL (10/19/2021 9:21 EDT) Pathologist [facility] T3, Total 133 97 - 169 ng/dL 10/20/2021 17:47 EDT [facility] Blood VENOUS BLOOD / Unknown 10/19/2021 9:21 EDT 10/20/2021 16:53 EDT us Provider Outr Resulting Lab CHEMISTRY & BLOOD GA S ORDERABLES Final Result Performing Organization Address [facility] Co de Phone Number [facility] [address] [place] [address] * ANTI THYROGLOBULIN (10/19/2021 9:21 EDT) [facility] Anti-Thyroglob ulin <15 <=60 U/mL 10/20/2021 20:16 EDT [facility] Blood VENOUS BLOOD / Unknown 10/19/2021 9:21 EDT 10/20/2021 16:53 EDT us Provider Outr Resulting Lab CHEMISTRY & BLOOD GA S ORDERABLES Final Result Performing Organization Address [facility]/ZIP Co de Phone Number [facility] [address] [place] [address] * LYME AB (10/19/2021 9:21 EDT) [facility] Lyme Ab Negative Negative 10/21/2021 12:13 EDT [facility] Blood VENOUS BLOOD / Unknown 10/19/2021 9:21 EDT 10/20/2021 16:53 EDT us Provider Outr Resulting Lab IMMUNOLOGY AND SEROL OGY ORDERABLES Final Result [facility] [address] [place] [address] documented in this encounter Visit Diagnoses Not on filedocumented in this encounter Care Teams Rental Car Ferry Driver Relationship Specialty Start Date End Date Lynne Ramírez FNP [address] [place] [address] PCP - General 03/12/19 09/04/23 Kyaw Ahn RPA 185 [facility] [address] [place] [phone] PCP - General Family Medicine - Primary Care 09/05/23 Mariaelena Garces NP [address] [place] [phone] Nurse Practitioner Endocrinology, Diabetes and Metabolism 07/20/21 documented as of this encounter
--- OUTSIDE RECORDS SUMMARY | 2024-08-03 00:09 | XMS_ITS | Encounter Summary ---
Author Organization [facility] Address [address] [place] [address] Care Team Providers Care Art Manager Name Role Phone Lynne Ramírez JAVID Primary Care Provider [phone] Mariaelena Garces BOILER WASHER Unavailable [phone] Kyaw Ahn RPA Primary Care Provider [phone] Encounter Details Date Type Department Care Team (Late st Contact Info) Description 11/04/2021 Lab Requisition [facility] Pathology & Laboratory Medicine - [facility] [address] [place] [address] Outr Resulting Lab, Provider Social History Tobacco [...] Contact Info) Description 08/07/2024 11:00 EST Telemedicine [facility] Endocrinology [address] [place] [address] Brenna Carmona MD [address] [place] [address] [place] [phone] documented as of this encounter Procedures Procedure Name Priority Date/Time Associated Diagnosis Comments ZZCOVID-19 TEST [facility] PCR Today 11/03/2021 13:15 EDT COVID-19 TESTING Routine 11/03/2021 13:1 5 EDT documented in this encounter Results * COVID-19 TEST [facility] PCR (11/03/2021 13:15 EDT) Swab 11/03/2021 13:1 5 EDT 11/04/2021 16:37 EDT us Provider Outr Resulting Lab MICROBIOLOGY - GENER AL ORDERABLES Final Result [facility] [address] [place] [address] * COVID-19 TESTING (11/03/2021 13:15 EDT) COVID-19 rt-PCR Result Negative Negative 11/05/2021 11:27 EDT [facility] Comment: This test has [...] was performed using the nasreen SARS-CoV-2 assay ([employer] on the Nasreen 6800 System Performing Lab Nasreen 6800 [facility] 11/05/2021 11:27 EDT [facility] Swab 11/03/2021 13:1 5 EDT 11/04/2021 16:37 EDT us Provider Outr Resulting Lab MICROBIOLOGY - GENER AL ORDERABLES Final Result [facility] [address] [place] [address] documented in this encounter Visit Diagnoses Not on filedocumented in this encounter Care Teams Art Manager Relationship Specialty Start Date End Date Lynne Ramírez FNP [address] [place] [address] PCP - General 03/12/19 09/04/23 Kyaw Ahn RPA [address] [place] [address] PCP - General Family Medicine - Primary Care 09/05/23 Mariaelena Garces NP [address] [place] [address] [address] [place] [phone] Nurse Practitioner Endocrinology, Diabetes and Metabolism 07/20/21 documented as of this encounter
--- OUTSIDE RECORDS SUMMARY | 2024-08-03 00:09 | XMS_ITS | Encounter Summary ---
Author Organization [facility] Address [address] [place] [address] Care Team Providers Care Beef Specialist Name Role Phone Lynne Ramírez JAVID Primary Care Provider Mariaelena Garces WEIGHER BULKER Unavailable [phone] Reason for Visit * Reason Comments Thyroid Problem Encounter Details Date Type Department Care Team (Late st Contact Info) Description 01/27/2022 8:00 EDT Telemedicine [facility] [place] [address] [place] [address] Brenna Darnell MD [address] [facility] [address] [place] [address] Hypothyroidism, postablative (Primary Dx); Medication [...] Brenna Pope MD - 01/27/2022 0800 EDT [facility] [place] Visit Today's visit was provided through [...] Contact Info) Description 08/07/2024 11:00 EST Telemedicine [facility] Endocrinology [address] [place], [place] [address] Brenna Carmona MD [address] [place] [address] [address] [place] [address] documented as of this [...] route. added in this encounter Care Teams Beef Specialist Relationship Specialty Start Date End Date Lynne Ramírez FNP [place] [address] PCP - General 03/12/19 09/04/23 Mariaelena Garces NP 130 [facility] [address] [place] [phone] Nurse Practitioner Endocrinology, Diabetes and Metabolism 07/20/21 documented as of this encounter
--- OUTSIDE RECORDS SUMMARY | 2024-08-03 00:09 | XMS_ITS | Encounter Summary ---
Author Organization [facility] Address [address] [place] [address] Care Team Providers Care Trial Examiner Name Role Phone Mariaelena Garces TRANSPORTATION SECURITY SCREENER Unavailable [phone] Kyaw Ahn RPA Primary Care Provider [phone] Encounter Details Date Type Department Care Team (Late st Contact Info) Description 02/07/2024 12:25 EDT Phlebotomy Only [facility] - Outpatient Phlebotomy Drawing [address] [place] [address] Lab, [facility] Postprocedural hypothyroidism; History of thyroid [...] Description 08/07/2024 11:00 EST Telemedicine [facility] Endocrinology [address] [place] [address] Brenna Carmona MD [address] [place] [address] [address] [place] [phone] documented as of this encounter Procedures [...] 0.8 - 2.2 ng/dL 02/07/2024 15:16 EDT [facility] Blood VENOUS BLOOD / Unknown Venipuncture / Unknown 02/07/2024 12:29 EDT 02/07/2024 13:49 EDT us Brenna Griffin MD CHEMISTRY & BLOOD GAS ORDERABLES Final Result [facility] [address] [place] [address] * THYROGLOBULIN, TUMOR MARKER, S (02/07/2024 12:29 EDT) Thyroglobulin Antibody, S <1.8 <1.8 IU/mL 02/08/2024 19:55 EDT [facility] Thyroglobulin, Tumor Marker <0.1 ng/mL 02/08/2024 19:55 EDT [facility] Comment: REFERENCE VALUE Athyrotic <0.1 Intact Thyroid <=33 Thyroglobulin Interpretation SEE NOTE 02/08/2024 19:55 EDT [facility] [employer] Comment: Thyroglobulin (Tg) levels must be interpreted [...] testing methods are immunoenzymatic assays manufactured by [employer] and performed on the [employer] DXI 800. Values obtained from different assay methods or kits may be different and cannot be used interchangeably. The results cannot be interpreted as absolute evidence for the presence or absence of malignant disease. Test Performed by: [facility] - [address] [address] Charter Boat Operator: Hardik Simon Ph.D.; CLIA# [id number] Blood VENOUS BLOOD / Unknown Venipuncture / Unknown 02/07/2024 12:29 EDT 02/07/2024 13:49 EDT us Brenna Griffin MD CHEMISTRY & BLOOD GAS ORDERABLES Final Result [facility] [address] [place] [address] * (ABNORMAL) THYROID CASCADE (02/07/2024 12:29 EDT) TSH 7.38(H) 0.47 - 4.68 mIU/L 02/07/2024 14:49 EDT [facility] Blood VENOUS BLOOD / Unknown Venipuncture / Unknown 02/07/2024 12:29 EDT 02/07/2024 13:49 EDT Narrative [facility] - 02/07/2024 14:49 EDT NOTE: The results of this assay can be falsely lowered due to the consumption of Biotin. us Brenna Griffin MD CHEMISTRY & BLOOD GAS ORDERABLES Final Result [facility] [address] [place], [place] [address] documented in this encounter Visit Diagnoses Diagnosis Postprocedural hypothyroidism Postsurgical hypothyroidism History of thyroid cancer Personal history of malignant neoplasm of thyroid documented in this encounter Care Teams Trial Examiner Relationship Specialty Start Date End Date Kyaw Ahn RPA [address] [place] [address] PCP - General Family Medicine - Primary Care 09/05/23 Mariaelena Garces NP 130 [facility] [address] [place] [phone] Nurse Practitioner Endocrinology, Diabetes and Metabolism 07/20/21 documented as of this encounter
--- OUTSIDE RECORDS SUMMARY | 2024-08-03 00:09 | XMS_ITS | Encounter Summary ---
Author Organization [facility] Address [address] [place] [address] Care Team Providers Care Greenhouse Staff Name Role Phone Mariaelena Garces HAND UMBRELLA TIPPER Unavailable [phone] Kyaw Ahn RPA Primary Care Provider [phone] Reason for Visit * Reason Comments Medications Refill Encounter Details Date Type Department Care Team (Late st Contact Info) Description 11/24/2023 Refill [facility] Endocrinology [address] [place] [address] Mariaelena Garces HAND UMBRELLA TIPPER [address] [facility] [address] [place] [address] Medications Refill Social History Tobacco [...] Encounter - Christine Mcdaniels RN - 11/24/2023 0917 EDT Requesting refill synthroid. Up to date with labs and ofc visits. documented in this encounter Plan of Treatment Upcoming Encounters Date Type Department Care Team (Late st Contact Info) Description 08/07/2024 11:00 EST Telemedicine [facility] Endocrinology [address] [place] [address] Brenna Carmona MD 62 [facility] [address] [place] [phone] documented as of this encounter Visit Diagnoses Not on filedocumented in this encounter Discontinued Medications Medication Sig Discontinue Reason Start Date End Da te levothyroxine (SYNTHROID) 200 mcg tablet Take 1 Tablet by mouth daily. Branded name necessary 05/26/2023 11/24/2023 documented as of this encounter Care Teams Greenhouse Staff Relationship Specialty Start Date End Date Kyaw Ahn RPA [address] [facility] [address] [place] [address] PCP - General Family Medicine - Primary Care 09/05/23 Mariaelena Garces NP 130 [facility] [address] [place] [address] Nurse Practitioner Endocrinology, Diabetes and Metabolism 07/20/21 documented as of this encounter
--- OUTSIDE RECORDS SUMMARY | 2024-08-03 00:09 | XMS_ITS | Clinical Summary ---
Author Organization [facility] Address [address] [place] [address] Care Team Providers Care Director Payer Name Role Phone Mariaelena Garces COMPANY DOCTOR Unavailable [phone] Kyaw Ahn RPA Primary Care Provider [phone] Allergies Active Allergy Reactions Criticality Noted Date [...] ORAL) Take 1 Tab by mouth. Active Alxxm-4-XWO-EPA -Fish Oil 1,200 (144-216) mg capsule Take [...] 04/22/2020 Liver lesion 04/22/2020 Fatigue 04/22/2020 Aneurysm ([facility]) 04/22/2020 History of thyroid cancer 04/22/2020 Stage 3 chronic kidney disease ([facility]) 017 Myofascial pain 09/07/2016 NSAID long-term use 09/07/2016 IFG (impaired fasting glucose) 11/12/2015 Hyperlipidemia, unspecified 11/12/2015 Prurigo nodularis 10/03/2015 History of nicotine dependence 03/21/2014 Pain in joint, lower leg 03/21/2014 Lumbosacral spondylosis without myelopathy 11/21 Spondylosis of lumbar spine 10/10/2013 Mechanical low back pain 09/12/2013 Sleep apnea 08/23/2013 Morbid obesity ([facility]) 08/23/2013 Depression 08/23/2013 Bilateral knee pain 08/23/2013 Panic disorder 02/28/2013 Encounters Date Type Department Care Team Description 05/07/2024 Telephone [facility] [place] [address] [place] [address] Chayito Villegas, RN Medications Refill from Last 3 Months Immunizations [...] Contact Info) Description 08/07/2024 11:00 EST Telemedicine [facility] Endocrinology [address] [place] [address] Brenna Carmona MD 62 [facility] [address] [place] [phone] Health Maintenance Due Date Last Done Comments Hepatitis C Screen 1965 Pneumococcal Immunization (2 of 2 - PCV) 01/20/2011 01/20/2010 RSV Immunization ( o r 60+ Years) (1 - Risk 60-74 years 1-dose series) 2023 COVID-19 Vaccine (5 - 2023-2 5 season) 2024 07/01/2023, 05/04/2022, 10/19/2021, Additional history exists [place] [address] [place] [address] [place] Care Teams Director Payer Relationship Specialty Start Date End Date Kyaw Ahn RPA [address] [facility] [address] [place] [address] PCP - General Family Medicine - Primary Care 09/05/23 Mariaelena Garces NP 130 [facility] 3 [place] [phone] Nurse Practitioner Endocrinology, Diabetes and Metabolism 07/20/21
--- OUTSIDE RECORDS SUMMARY | 2024-08-03 00:09 | XMS_ITS | Encounter Summary ---
Author Organization [facility] Address [address] [place] [address] Care Team Providers Care Electronic Installer Name Role Phone Lynne Ramírez JAVID Primary Care Provider [phone] Mariaelena Garces INTERPRETER TRANSLATOR Unavailable [phone] Reason for Visit * Reason Comments Hypothyroidism Encounter Details Date Type Department Care Team (Latest Contact Info) Description 08/02/2023 15:00 EST Telemedicine [facility] [place] [address] [place] [address] Brenna Carmona MD [address] [place] [address] [place] [phone] Postprocedural hypothyroidism (Primary Dx) Social History [...] Home Patient location state: Visit Location State: [place] The location of the provider: Office Provider location state: Visit Location State: [place] The following people and their roles were [...] 0.5 Tablets by mouth 2 times daily. Risvo-2-EHE-EPA-Fish Oil 1,200 (144-216) mg capsule Take 2 [...] Imaging Results: Lab Results Component Value Date [id number] 133 10/19/2021 Assessment and Plan: Hypothyroidism: clinically euthyroid but biochemically mildly hypothyroid based on reported TSH. Will try to track don the results to decide on dose adjustment if needed. RTC 6 months documented in this encounter Plan of Treatment Upcoming Encounters Date Type Department Care Team (Late st Contact Info) Description 08/07/2024 11:[address] [facility] Endocrinology [address] [place], [place] [phone] Brenna Carmona MD [address] [employer] [address] [place] [address] documented as of this encounter [...] 07/27/2023 documented in this encounter Care Teams Electronic Installer Relationship Specialty Start Date End Date Lynne Ramírez [place] [address] PCP - General 03/12/19 09/04/23 Mariaelena Garces NP [address] [place] [address] [address] [place] [phone] Nurse Practitioner Endocrinology, Diabetes and Metabolism 07/20/21 documented as of this encounter
--- OUTSIDE RECORDS SUMMARY | 2024-08-03 00:09 | XMS_ITS | Referral Summary ---
Author Organization [facility] Address [address] [place] [address] Care Team Providers Care Driver'S License Reviewing Officer Name Role Phone Mariaelena Garces SOA ENGINEER Unavailable [phone] Kyaw Ahn RPA Primary Care Provider [phone] Encounters Date Type Department Care Team Description 05/07/2024 Telephone [facility] [place] [address] [place] [address] Chayito Villegas, MORRIS Medications Refill from Last 3 Months Allergies [...] ORAL) Take 1 Tab by mouth. Active Vftud-3-SXA-EPA -Fish Oil 1,200 (144-216) mg capsule Take [...] 04/22/2020 Liver lesion 04/22/2020 Fatigue 04/22/2020 Aneurysm ([facility]) 04/22/2020 History of thyroid cancer 04/22/2020 Stage 3 chronic kidney disease ([facility]) 017 Myofascial pain 09/07/2016 NSAID long-term use 09/07/2016 IFG (impaired fasting glucose) 11/12/2015 Hyperlipidemia, unspecified 11/12/2015 Prurigo nodularis 10/03/2015 History of nicotine dependence 03/21/2014 Pain in joint, lower leg 03/21/2014 Lumbosacral spondylosis without myelopathy 11/21 Spondylosis of lumbar spine 10/10/2013 Mechanical low back pain 09/12/2013 Sleep apnea 08/23/2013 Morbid obesity ([facility]) 08/23/2013 Depression 08/23/2013 Bilateral knee pain [...] Contact Info) Description 08/07/2024 11:00 EST Telemedicine [facility] Endocrinology [address] [place] [address] Brenna Carmona MD [address] [place] [phone] [place] Care Teams Driver'S License Reviewing Officer Relationship Specialty Start Date End Date Kyaw Ahn RPA [address] [place] [id number] PCP - General Family Medicine - Primary Care 09/05/23 Mariaelena Garces NP [address] [place] [phone] Nurse Practitioner Endocrinology, Diabetes and Metabolism 07/20/21
--- OUTSIDE RECORDS SUMMARY | 2024-08-03 00:09 | XMS_ITS | Encounter Summary ---
Author Organization [facility] Address [address] [place] [address] Care Team Providers Care Coagulator Name Role Phone Lynne Ramírez JAVID Primary Care Provider Encounter Details Date Type Department Care Team (Late st Contact Info) Description 04/22/2020 Abstract [facility] End[facility]ology [address] [place], [place] [phone] Brenna Darnell MD 130 [facility] [address] [place] [phone] Social History Tobacco Use Types Packs/Day Years [...] 11:00 EST Telemedicine [facility] Endocrinology [address] [place] [address] Brenna Carmona MD [address] [place] [phone] documented as of this encounter Visit Diagnoses Not on filedocumented in this encounter Care Teams Coagulator Relationship Specialty Start Date End Date Lynne Ramí[place] [address] PCP - General 03/12/19 09/04/23 documented as of this encounter
--- OUTSIDE RECORDS SUMMARY | 2024-08-03 00:09 | XMS_ITS | Encounter Summary ---
Author Organization [facility] Address [address] [place] [address] Care Team Providers Care Data Review Specialist Name Role Phone Lynne Ramírez JAVID Primary Care Provider [phone] Reason for Visit * Reason Comments New Patient Visit Encounter Details Date Type Department Care Team (Latest Contact Info) Description 07/28/2020 11:30 EST Telemedicine [facility] [place] [address] [place], [place] [phone] Quan Darnell MD 130 [facility] [address] [place] [address] Postablative hypothyroidism (Primary Dx); Thyroid cancer ([facility]) Social History Tobacco Use Types Packs/Day Years [...] Quan Pope MD - 07/28/2020 1130 EST [facility] [place] Visit Subjective: Chief Complaint(s): New Patient [...] Plan: 1. Postablative hypothyroidism 2. Thyroid cancer ([facility]) Hypothyroidism: based on last labs appeared over [...] Description 08/07/2024 11:00 EST Telemedicine [facility] [place] [address] [place] [address] Quan Carmona MD [address] [place] [phone] Scheduled Orders Name Type Priority Associated [...] capsule Take 4 Tabs by mouth daily. Wssfw-2-MMI-EPA-F yajaira Oil 1,200 (144-216) mg capsule Take [...] 07/28/2020 added in this encounter Care Teams Data Review Specialist Relationship Specialty Start Date End Date Lynne Ramí[place] [address] PCP - General 03/12/19 09/04/23 documented as of this encounter
--- OUTSIDE RECORDS SUMMARY | 2024-08-03 00:09 | XMS_ITS | Encounter Summary ---
Author Organization [facility] Address [address] [place] [address] Care Team Providers Care Dispensary Clerk Name Role Phone Lynne Ramírez Primary Care Provider Reason for Visit * Reason Comments New Patient Visit joint pain * Referral (Routine) - Closed Specialty Diagnoses / Procedures [facility] Referred To Contact Rheumatology Diagnoses Myalgia, unspecified site Lynne Ramírez FNP [address] [place] [address] Phone: tel: fax: [facility] Rheumatology & Immunology [address] [address] Phone: tel: fax: Referral ID Status Reason Start Date Expiration Date Visits Re quested Visits Authorized [id number] Closed 1 1 Encounter Details Date Type Department Care Team (Late st Contact Info) Description 05/22/2019 14:55 EST Office Visit [facility] Rheumatology & Immunology [address] [id number] Constantine Correia MD [address] [place] [address], [address] [place] [address] Sicca syndrome (HCC-CMS) (Primary Dx); [...] sicca by drinking water frequently and using surs-tct-bbeoovs therapies like Biotene products, spray products, xylitol-based [...] documentation was created using voice recognition software. Multiple Coil Winder errors may be present. documented in this encounter Plan of Treatment Upcoming Encounters Date Type Department Care Team (Late st Contact Info) Description 08/07/2024 11:00 EST Telemedicine [facility] - [facility] Endocrinology [address] [place], [place] [address] Brenna Carmona MD [address] [place] [phone] documented as of this encounter Results * ANTI NUCLEAR AB (FILIBERTO), IFA (05/22/2019 16:50 EST) Pathologist [facility] FILIBERTO Interpretation Negative Negative 2018 15:22 EST [facility] Blood VENOUS BLOOD / Unknown Venipuncture / Unknown 05/22/2019 16:50 EST 05/22/2019 17:42 EST Narrative [facility] - 05/23/2019 15:22 EST Results were obtained with the INOVA NOVA Lite HEp-2 FILIBERTO Kit by indirect immunofluorescence. us Constantine Correia MD IMMUNOLOGY AND SEROLOG Y ORDERABLES Final Result [facility] [address] [place] [address] * RHEUMATOID FACTOR (05/22/2019 16:50 EST) Rheumatoid Factor 8.0 <12.5 IU/mL 05/23/2019 11:34 EST [facility] Blood VENOUS BLOOD / Unknown Venipuncture / Unknown 05/22/2019 16:50 EST 05/22/2019 17:42 EST Constantine Correia MD CHEMISTRY & BLOOD GAS ORDERABLES Final Result Performing Organization Address [facility] de Phone Number [facility] [address] [place] [address] * SSB ANTIBODIES BY JIMMIE (05/22/2019 16:50 EST) SSB Antibody 2.4 <20.0 Units 05/29/2019 12:52 EST [facility] Comment: ? Negative: <20.0 Units ? Weak Positive: 20.0 - 39.9 Units ? Moderate Positive: 40.0 - 80.0 Units ? Strong Positive: >80.0 Units Results were obtained with the 9Lenses QUANTA Lite SS-B JIMMIE. ??SS-B values obtained with different manufacturers' assay methods may not be used interchangeably. ??The magnitude of the reported IgG levels cannot be correlated to an endpoint titer. Blood VENOUS BLOOD / Unknown Venipuncture / Unknown 05/22/2019 16:50 EST 05/22/2019 17:42 EST Constantine Correia MD IMMUNOLOGY AND SEROLOG Y ORDERABLES Final Result Performing Organization Address [facility] Co de Phone Number [facility] [address] [place] [address] * SSA ANTIBODIES BY JIMMIE (05/22/2019 16:50 EST) SSA Antibody 1.3 <20.0 Units 05/29/2019 12:49 EST [facility] Comment: ? Negative: <20.0 Units ? Weak Positive: 20.0 - 39.9 Units ? Moderate Positive: 40.0 - 80.0 Units ? Strong Positive: >80.0 Units Results were obtained with the MediaSiloA Lite SS-A JIMMIE. ??SS-A values obtained with different manufacturers' assay methods may not be used interchangeably. ??The magnitude of the reported IgG levels cannot be correlated to an endpoint titer. Blood VENOUS BLOOD / Unknown Venipuncture / Unknown 05/22/2019 16:50 EST 05/22/2019 17:42 EST us Constantine Correia MD IMMUNOLOGY AND SEROLOG Y ORDERABLES Final Result [facility] [address] [place] [address] documented in this encounter Visit Diagnoses Diagnosis Sicca syndrome ([facility])- Primary Sicca syndrome Chronic pain of [...] 08/25/2020 added in this encounter Care Teams Dispensary Clerk Relationship Specialty Start Date End Date Lynne Ramírez FNP [address] [place] [address] PCP - General 03/12/19 09/04/23 documented as of this encounter
--- OUTSIDE RECORDS SUMMARY | 2024-08-03 00:09 | XMS_ITS | Encounter Summary ---
Author Organization [facility] Address [address] [place] [address] Care Team Providers Care Backbreaker Name Role Phone Lynne Ramírez JAVID Primary Care Provider Mariaelena Garces SMALL PARTS ASSEMBLER Unavailable [phone] Reason for Visit * Reason Comments Hypothyroidism Refill, medication m onitoring Encounter Details Date Type Department Care Team (Latest Contact Info) Description 05/19/2022 8:30 EST Telemedicine [facility] Endocrinology [address] [place] [address] Brenna Darnell MD [address] [facility] [address] [place] [address] Postprocedural hypothyroidism (Primary Dx); Medication [...] * Brenna Pope MD - 05/19/2022829 EST [facility] Video Visit Today's visit was provided through [...] Info) Description 08/07/2024 11:00 EST Telemedicine [facility] Endocrinology [address] [place] [address] Brenna Carmona MD [address] [place] [phone] documented as of this encounter Visit [...] mouth. added in this encounter Care Teams Backbreaker Relationship Specialty Start Date End Date Lynne Ramírez FNP [facility] [place] [address] PCP - General 03/12/19 09/04/23 Mariaelena Garces NP [address] [place] [phone] Nurse Practitioner Endocrinology, Diabetes and Metabolism 07/20/21 documented as of this encounter
--- OUTSIDE RECORDS SUMMARY | 2024-08-03 00:09 | XMS_ITS | Encounter Summary ---
Author Organization [facility] Address [address] [place] [address] Care Team Providers Care Artificial Stone Applicator Name Role Phone Lynne Ramírez JAVID Primary Care Provider [phone] Reason for Visit * Reason Comments Thyroid Problem Encounter Details Date Type Department Care Team (Late st Contact Info) Description 01/26/2021 14:00 EDT Office Visit [facility] Endocrinology [address] [place], [place] [address] Brenna Darnell MD [address] [facility] [place] [address] Hypothyroidism, postablative (Primary Dx); Medication [...] Brenna Pope MD - 01/26/2021 1400 EDT [facility] Video Visit Today's visit was [...] Contact Info) Description 08/07/2024 11:00 EST Telemedicine [facility] Endocrinology [address] [place] [address] Brenna Carmona MD [address] [place] [phone] documented as of this encounter Visit [...] documented as of this encounter Care Teams Artificial Stone Applicator Relationship Specialty Start Date End Date Lynne Ramírez FNP [facility] [address] [facility] [place] [address] PCP - General 03/12/19 09/04/23 documented as of this encounter
--- OUTSIDE RECORDS SUMMARY | 2024-08-03 00:10 | XMS_ITS | Encounter Summary ---
[place] [address] Care Team Providers Care Fisheries Biologist Name Role Phone Bhumi Ventura APRN Primary Care Provider [phone] Encounter Details Date Type Department Care Team (Late st Contact Info) Description 11/12/2013 Telephone [place] [phone] Laura Fishman LPN Social History Tobacco Use [...] Center Post-Procedure Phone Note Patient: Vanesa Marrero [id number] Post-procedure phone call from patient to report [...] any time with questions or concerns. Laura Fishmna LPN documented in this encounter Plan of [...] on filedocumented in this encounter Care Teams Fisheries Biologist Relationship Specialty Start Date End Date Bhumi Ventura APRN [address] [place] [address] PCP - General 08/23/13 11/13/14 documented as of this encounter
--- OUTSIDE RECORDS SUMMARY | 2024-08-03 00:10 | XMS_ITS | Encounter Summary ---
[place] [address] Care Team Providers Care Area Representative Name Role Phone LorenzoCasperBhumilouise LOPEZ Primary Care Provider [phone] Reason for Visit * Reason Onset Date Comments Referral 07/25/2013 Encounter Details Date Type Department Care Team (Late st Contact Info) Description 07/25/2013 [place] [phone] Bony Valentin Referral Social History Tobacco Use [...] access to your electronic medical record at [facility] and the ability to communicate with [...] the instructions. Here is your activation code: [email or web address] Expires: 09/16/2013 11:37 AM Remember, myD-H is NOT for urgent needs! Always dial 911 for medical emergencies. * Telephone Encounter - Marguerite Lopez - 07/31/2013 4:29 PM EST Appt. 08/23/13 * Telephone Encounter - Angelina Melo - 07/27/2013 12:11 PM EST Ask patient to verify the following: COMPLETE Full name: Vanesa Marrero : 1965 Phone number: [phone] (home) Mailing address: [address] [address] Intake: BILAT KNEE PAIN / DJD Is [...] for this issue? ?? X-Ray YES - [facility] ?? MRI ?? CT Scan ?? LABS Have you seen an Orthopaedic surgeon for the this issue? YES If YES: Who did you see? DR SHEPPARD Where were you seen (facility)? [facility] When? Have you ever had surgery for [...] on filedocumented in this encounter Care Teams Area Representative Relationship Specialty Start Date End Date Bhumi Ventura APRN [address] [place] [address] PCP - General 08/23/13 11/13/14 documented as of this encounter
--- OUTSIDE RECORDS SUMMARY | 2024-08-03 00:10 | XMS_ITS | Encounter Summary ---
Author Organization [facility] [place] [address] Care Team Providers Care Sales Specialist Name Role Phone Roula Bauman APRN Primary Care Provider Un available Encounter Details Date Type Department Care Team (Late st Contact Info) Description 09/30/2021 Ancillary Procedure Radiology Library at [facility] [place] [address] Juan Manuel Eldridge MD [facility] [place] [address] Social History Tobacco Use Types Packs/Day Years [...] for storage only. Juan Manuel Eldridge MD [facility] FILM LIBRARY ORD ERABLES Performing Organization Address City/State/[facility] Co de Phone Number [place], [place] documented in this encounter Visit Diagnoses Not on filedocumented in this encounter Care Teams Sales Specialist Relationship Specialty Start Date End Date Roula Bauman APRN PCP - General 11/14/14 07/05/24 documented as of this encounter
--- OUTSIDE RECORDS SUMMARY | 2024-08-03 00:10 | XMS_ITS | Encounter Summary ---
[place] [address] Care Team Providers Care Restaurant And Bar Manager Name Role Phone Roula Bauman APRN Primary Care Provider Un available Reason for Referral * Consultation (Routine) - Closed Specialty Diagnoses / Procedures Referred By Alexia roger Referred To Contact Gastroenterology Diagnoses Special screening for malignant neoplasms, colon Procedures COLONOSCOPY Kyaw Ahn PA [address] [place] [address] [facility] Endoscopy [address] [place] [phone] Referral ID Status Reason Start Date Expiration Date V isits Requested Visits Authorized [id number] Closed Consult, Test & Treat 11/29/2023 11/28/2024 1 1 Encounter Details Date Type Department Care Team (Latest Contact Info) Description 11/29/2023 Transcribe [place] [address] Kyaw Ahn PA [address] [place] [address] Special screening for malignant neoplasms, [...] colon documented in this encounter Care Teams Restaurant And Bar Manager Relationship Specialty Start Date End Date Roula Bauman APRN PCP - General 11/14/14 07/05/24 documented as of this encounter
--- OUTSIDE RECORDS SUMMARY | 2024-08-03 00:10 | XMS_ITS | Encounter Summary ---
Author Organization [facility] [place] [address] Care Team Providers Care Seo Team Lead Name Role Phone Lorenzo Bhumi LOPEZ Primary Care Provider [phone] Reason for Visit * Reason Comments Back Pain Encounter Details Date Type Department Care Team (Latest Contact Info) Description 10/26/2013 1:15 PM EDT Procedure visit [place] [address] [facility]er[facility] [place] [address] Spondylosis of lumbar region without myelopathy or [...] Post -Procedure Pain Log Patient: Vanesa Marrero [id number] It is important for you to keep [...] Marrero Referring Physician: Jose C Marroquin Pa [facility] [place] [address] Diagnosis: 1. Spondylosis of lumbar region without [...] the entire procedure. Ricky Banerjee DO, MPH [facility]subspecialty board certification in Pain Medicine Attending Physician - Pain Management CC: MAKENNA Paetl [facility] [address] * Sena Narayan LPN - 10/26/2013 1:47 PM EDT Pre-Procedure Screening Questions: 1. Status: No 2. 3. Patient states they have a water taxi driver to transport after procedure? Yes 4. [...] Scheduled Procedures Name Priority Associated Diagnoses Date/Ti nm COLONOSCOPY, DIAGNOSTIC (WRV U 3.26) + cologuard [...] mg documented in this encounter Care Teams Seo Team Lead Relationship Specialty Start Date End Date Bhumi Ventura APRN [address] [place] [address] PCP - General 08/23/13 11/13/14 documented as of this encounter
--- OUTSIDE RECORDS SUMMARY | 2024-08-03 00:10 | XMS_ITS | Encounter Summary ---
[place] [address] Care Team Providers Care Chemical Research Worker Name Role Phone Bhumi Ventura APRN Primary Care Provider [phone] Reason for Referral * Consultation (Routine) - Closed Specialty Diagnoses / Procedures Referred By Alexia roger Referred To Contact Pain Management Diagnoses Mechanical low back pain Jose C Marroquin PA [facility] [place] [address] [facility] [address] [place] [address] Referral ID Status Reason Start Date Expiration Date V isits Requested Visits Authorized [id number] Closed Consult, Test & Treat 10/03/2013 04/01/2014 3 3 Reason for Visit * Reason Comments Low Back Pain Encounter Details Date Type Department Care Team (Late st Contact Info) Description 10/03/2013 9:20 AM EDT Follow-[place] [address] Jose C Marroquin PA Mechanical [...] Lumbago documented in this encounter Care Teams Chemical Research Worker Relationship Specialty Start Date End Date Bhumi Ventura APRN [address] [place] [address] PCP - General 08/23/13 11/13/14 documented as of this encounter
--- OUTSIDE RECORDS SUMMARY | 2024-08-03 00:10 | XMS_ITS | Encounter Summary ---
[place] [address] Care Team Providers Care Edging Machine Setter Name Role Phone Bhumi Ventura APRN Primary Care Provider [phone] Encounter Details Date Type Department Care Team (Late st Contact Info) Description 11/22/2013 Telephone [place] [phone] Elise Mojica, RN Social History Tobacco Use [...] Center Post-Procedure Phone Note Patient: Vanesa Marrero [id number] Post-procedure phone call from patient to report [...] DO. _x_ Patient will be contacted by dowel pointer in Pain Management Center as described above. [...] Bhumi Ventura APRN [address] [place] [address] PCP - General 08/23/13 11/13/14 documented as of this encounter
--- OUTSIDE RECORDS SUMMARY | 2024-08-03 00:10 | XMS_ITS | Encounter Summary ---
Author Organization [facility] [place] [address] Care Team Providers Care Manager Casino Name Role Phone Jose Akhtar MD Primary Care Provider U ken Encounter Details Date Type Department Care Team (Late st Contact Info) Description 07/27/2013 Orders [place] [address] [facility] [place] [address] Bilateral knee pain (Primary Dx) Social History [...] leg documented in this encounter Care Teams Manager Casino Relationship Specialty Start Date End Date Jose Akhtar MD PCP - General 05/19/10 08/22/13 documented as of this encounter
--- OUTSIDE RECORDS SUMMARY | 2024-08-03 00:10 | XMS_ITS | Encounter Summary ---
Author Organization [facility] [place] [address] Care Team Providers Care Cafe Helper Name Role Phone Roula Bauman APRN Primary Care Provider Un available Encounter Details Date Type Department Care Team (Late st Contact Info) Description 2019 Ancillary Procedure Radiology Library at [facility] [place] [address] Juan Manuel Eldridge MD [facility] [place] [address] Social History Tobacco Use Types Packs/Day Years [...] City/State/[facility] Co de Phone Number [place], [place] documented in this encounter Visit Diagnoses Not on filedocumented in this encounter Care Teams Cafe Helper Relationship Specialty Start Date End Date Roula Bauman APRN PCP - General 11/14/14 07/05/24 documented as of this encounter
--- OUTSIDE RECORDS SUMMARY | 2024-08-03 00:10 | XMS_ITS | Encounter Summary ---
Author Organization [facility] [place] [address] Care Team Providers Care Supervisor Television Chassis Repair Name Role Phone Lorenzo Bhumi LOPEZ Primary Care Provider [phone] Reason for Visit * Reason Comments Back Pain Encounter Details Date Type Department Care Team (Latest Contact Info) Description 12/10/2013 2:30 PM EDT Procedure [place] [address] [address] Banerjee [facility] [place] [address] Lumbosacral spondylosis without myelopathy (Primary Dx) Discharge [...] No 2. Patient states they have a bus van driver to transport after procedure? Yes 3. [...] skin entry points and subcutaneous tissues, a [id number] 20 guage curved needle with a 10mm [...] the entire procedure. Ricky Banerjee DO, MPH [facility]-subspecialty board certification in Pain Medicine Attending Physician-Pain Management CC: Bhumijeremiah Ventura, COMMUNITY MANAGER [address] [place] [address] documented in this encounter Plan of Treatment [...] skin entry points and subcutaneous tissues, a [id number] 20 guage curved needle with a 10mm [...] Medicine Attending Physician-Pain Management CC: Bhumi Ventura, COMMUNITY MANAGER [address] [place] [address] Procedure Note Huch, Josh M, DO - [...] the skin entry points andsubcutaneous tissues, a [id number] 20 guage curved needle with a 10mmactive [...] Attending Physician-Pain Management CC: Bhumi Ventura APRN [address] [place] [address] Ricky Allen DO PROCEDURE/MINOR SURG ICAL ORDERABLES [...] mg documented in this encounter Care Teams Supervisor Television Chassis Repair Relationship Specialty Start Date End Date Bhumi Ventura APRN [address] [facility] [place] [address] PCP - General 08/23/13 11/13/14 documented as of this encounter
--- OUTSIDE RECORDS SUMMARY | 2024-08-03 00:10 | XMS_ITS | Encounter Summary ---
Author Organization [place] [address] Care Team Providers Care Chucking And Boring Machine Operator Name Role Phone Bhumi Ventura APRN Primary Care Provider [phone] Reason for Referral * Surgical (Routine) - Closed Specialty Diagnoses / Procedures Referred By Contac t Referred To Contact Orthopaedics Diagnoses Bilateral knee pain Jim Ferreira PA [facility] [place] [address] [facility] [address] [place] [address] Referral ID Status Reason Start Date Expiration Date V isits Requested Visits Authorized [id number] Closed Consult, Test & Treat 08/23/2013 02/19/2014 1 1 * Psychiatric (Routine) - Complete - Unable to Contact Patient Specialty Diagnoses / Procedures Referred By Contac t Referred To Contact Psychiatry Diagnoses Bilateral knee pain Jim Ferreira PA [facility] [place] [address] Marychuy Wood I, PhD [facility] [place] [address] Referral ID Status Reason Start Date Expiration Date Visits Requested Visits Authorized [id number] Complete - Unable to Contact Patient Consult, Test & Treat 08/23/2013 02/19/2014 1 1 * Physical Therapy (Routine) - Closed by system - unspecified Specialty Diagnoses / Procedures Referred By Contac t Referred To Contact Physical Therapy Diagnoses Bilateral knee pain Jim Ferreira PA [facility] [place] [address] Referral ID Status Reason Start Date Expiration Date Visits Requested Visits Authorized [id number] Closed by system - unspecified Evaluate and Treat 08/23/2013 02/19/2014 20 20 Reason for Visit * Reason Comments Bilateral Knee Pain Encounter Details Date Type Department Care Team (Late st Contact Info) Description 08/23/2013 8:50 AM EST Office [place] [address] Sebastien Kathleen MD [facility] [place] [address] Jim Ferreira PA [facility] [place] [address] Bilateral knee pain (Primary Dx) Discharge Disposition: [...] bingeing on food 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 Smokes 1/2 [...] leg documented in this encounter Care Teams Chucking And Boring Machine Operator Relationship Specialty Start Date End Date Bhumi Ventura APRN [address] [place] [address] PCP - General 08/23/13 11/13/14 documented as of this encounter
--- OUTSIDE RECORDS SUMMARY | 2024-08-03 00:10 | XMS_ITS | Encounter Summary ---
Author Organization [facility] [place] [address] Care Team Providers Care Quality Assurance Associate Name Role Phone Jose Akhtar MD Primary Care Provider U ken Encounter Details Date Type Department Care Team (Late st Contact Info) Description 05/02/2013 Orders [place] [address] Sebastien Kathleen MD [facility] [place] [address] Social History Tobacco Use Types Packs/Day Years [...] on filedocumented in this encounter Care Teams Quality Assurance Associate Relationship Specialty Start Date End Date Jose Akhtar MD PCP - General 05/19/10 08/22/13 documented as of this encounter
--- OUTSIDE RECORDS SUMMARY | 2024-08-03 00:10 | XMS_ITS | Encounter Summary ---
[place] [address] Care Team Providers Care Multimedia Technician Name Role Phone LorenzoCasperBhumi JOHN Primary Care Provider +1 [phone] Encounter Details Date Type Department Care Team (Late st Contact Info) Description 02/21/2014 Telephone [place] [phone] Juana Jane RN Social History Tobacco Use [...] RF patients with a pacemaker) on 02/26/2014. Coin Machine Operator: The patient was reminded that they need to have a hammer driver accompany them to her procedure who [...] No Prior to checking in at 3D Magazine Grinder Loader, please be sure to empty your bladder. Patient confirmed understanding that if they do not follow the above their instructions, their procedure is likely to be cancelled. Juana Jane RN documented in this encounter Plan of Treatment Scheduled Procedures Name Priority Associated Diagnoses Date/Ti ma COLONOSCOPY, DIAGNOSTIC (WRV U 3.26) + cologuard Procedure: Colonoscopy Indication: Positive Cologuard Sedation: MAC Rationale for MAC: MONSE with BiPap, severe obesity with BMI >40 Timeframe: within 3 months Specific provider: first available documented as of this encounter Visit Diagnoses Not on filedocumented in this encounter Care Teams Multimedia Technician Relationship Specialty Start Date End Date Bhumi Ventura APRN [address] [place] [address] PCP - General 08/23/13 11/13/14 documented as of this encounter
--- OUTSIDE RECORDS SUMMARY | 2024-08-03 00:10 | XMS_ITS | Encounter Summary ---
[place] [address] Care Team Providers Care Liner Assembler Name Role Phone Lorenzo Bhumi LOPEZ Primary Care Provider +1 [phone] Encounter Details Date Type Department Care Team (Late st Contact Info) Description 10/12/2013 Telephone [place] [phone] Sena Castellano, RN Social History Tobacco Use [...] 1:23 PM regarding her upcoming appointment at [facility]. Message included the followin. Patient instructed to arrive at 0915 (30 minutes prior to procedure start time) on 10/19/13 (dateof procedure) with their regional otr company driver. 2. Following instructions left in the [...] on filedocumented in this encounter Care Teams Liner Assembler Relationship Specialty Start Date End Date Bhumi Ventura APRN [address] [place] [address] PCP - General 08/23/13 11/13/14 documented as of this encounter
--- OUTSIDE RECORDS SUMMARY | 2024-08-03 00:10 | XMS_ITS | Encounter Summary ---
[place] [address] Care Team Providers Care Air Crew Supervisor Name Role Phone Roula Bauman APRN Primary Care Provider Un available Reason for Visit * Reason Comments Abdominal Pain Encounter Details Date Type Department Care Team (Late st Contact Info) Description 11/13/2014 10:34 PM EDT - 11/14/2014 4:00 AM [place]T [place] [phone] Chrsitine Mackey MD Abdominal pain, RLQ (right lower [...] from the original note were not included. [facility] Abdominal Pain: After Your Visit Your Care [...] more? Visit our health information library at [email or web address] You can also view health information on [employer], your personal patient account. Log in or sign up today. Enter E907 in the search box to learn more about Abdominal Pain: After Your Visit. ?? [id number] [employer]TOK. Care instructions adapted under license by [facility]. This care instruction is for use with your licensed healthcare professional. If you have questions about a medical condition or this instruction, always ask your healthcare professional. [employer] disclaims any warranty or liability for your use of this information. Content Version: 10.4.745017; Current as of: November 28, 2013 documented [...] PCP this afternoon who sent her to [facility] ED for evaluation and a CT scan [...] am, negative urine dip. Then went to [facility] in [facility], labs done. Unable to perform CT at [...] Urine Dipstick Hazy(A) Clear CERNER MILLENNIUM Specific [place] Urine Automated 1.021 1.002 - 1.030 CERNER [...] Mendez) documented in this encounter Care Teams Air Crew Supervisor Relationship Specialty Start Date End Date Roula Bauman APRN PCP - General 11/14/14 07/05/24 documented as of this encounter
--- OUTSIDE RECORDS SUMMARY | 2024-08-03 00:10 | XMS_ITS | Encounter Summary ---
Author Organization [facility] [place] [address] Care Team Providers Care Warehouse General Laborer Name Role Phone LorenzoBhumi JOHN Primary Care Provider +1 [phone] Reason for Visit * Reason Comments Low Back Pain Encounter Details Date Type Department Care Team (Late st Contact Info) Description 10/03/2013 8:00 AM EDT Office [place] [phone] Jahaira Hernandez, Sebastien Fraga MD [facility] [place] [address] Mechanical low back pain (Primary Dx) Discharge [...] years. Past treatments have included physical therapy, rnfa-wac-ndbkuqt medications, heat, and liniments. Unfortunately, none of [...] is a disabled woman who lives in [place], [place], with friends. She smokes 0.5 packs [...] Lumbago documented in this encounter Care Teams Warehouse General Laborer Relationship Specialty Start Date End Date Bhumi Ventura APRN [address] [facility] [address] [place] [address] PCP - General 08/23/13 11/13/14 documented as of this encounter
--- OUTSIDE RECORDS SUMMARY | 2024-08-03 00:10 | XMS_ITS | Encounter Summary ---
[place] [address] Care Team Providers Care Narcotics Detective Name Role Phone LorenzoCasperBhumi JOHN Primary Care Provider +1 [phone] Encounter Details Date Type Department Care Team (Late st Contact Info) Description 02/19/2014 Telephone [place] [phone] Lucia Louise, RN Social History Tobacco Use [...] on 02/26/2014 (date of procedure) with their new car driver. 2. Following instructions left in the [...] on filedocumented in this encounter Care Teams Narcotics Detective Relationship Specialty Start Date End Date Bhumi Ventura APRN [address] [facility] [place] [address] PCP - General 08/23/13 11/13/14 documented as of this encounter
--- OUTSIDE RECORDS SUMMARY | 2024-08-03 00:10 | XMS_ITS | Encounter Summary ---
[place] [address] Care Team Providers Care Studio Operations Manager Name Role Phone Lorenzo Bhumi JOHN Primary Care Provider +1 [phone] Encounter Details Date Type Department Care Team (Late st Contact Info) Description 10/23/2013 Telephone [place] [phone] Sena Castellano, RN Social History Tobacco Use [...] on 10/26/13 (date of procedure) with their team cdl driver. 2. Following instructions left in the [...] on filedocumented in this encounter Care Teams Studio Operations Manager Relationship Specialty Start Date End Date Bhumi Ventura APRN [address] [place], [place] [address] [address] PCP - General 08/23/13 11/13/14 documented as of this encounter
--- OUTSIDE RECORDS SUMMARY | 2024-08-03 00:10 | XMS_ITS | Encounter Summary ---
[place] [address] Care Team Providers Care Sql Ssrs Ssis Developer Name Role Phone Roula Bauman APRN Primary Care Provider Un available Encounter Details Date Type Department Care Team (Late st Contact Info) Description 01/20/2024 [place] [address] Pancho Hart Social History Tobacco Use Types [...] - 01/20/2024 2:34 PM EDT Vanesa Marrero [id number] Diagnosis/Indication: + cologuard Please review patient chart [...] your procedure. Who will likely be your rail car driver for the procedure? Bhumi *Please Verify [...] on filedocumented in this encounter Care Teams Sql Ssrs Ssis Developer Relationship Specialty Start Date End Date Roula Bauman APRN PCP - General 11/14/14 07/05/24 documented as of this encounter
--- OUTSIDE RECORDS SUMMARY | 2024-08-03 00:10 | XMS_ITS | Encounter Summary ---
Author Organization [facility] Address [address] [place] [address] Care Team Providers Care Boat Camp Operator Name Role Phone Unavailable Primary Care Provider Unavailabl e Encounter Details Date Type Department Care Team (Late st Contact Info) Description 10/16/2003 Results Only [facility] [address], [place] [id number] William Latif MD [address] [place] [address] Social History Tobacco Use Types Packs/Day Years [...] 11:00 EST Telemedicine [facility] Endocrinology [address] [place] [address] Brenna Carmona MD [address] [facility] [address] [place] [address] documented as of this encounter [...] ? VANESA COOPER ? Accession #: ? [id number] ? : ? 1965 (Age: 38) ??F ? Collect Date: ? 10/16/2003 ? Location: ? [facility] ? Receive Date: ? 10/16/2003 ? Provider: WILLIAM LATIF MD Copy to: ANUSHA KAUR SAW OPERATOR ? Final Pathologic Diagnosis: ? Gallbladder, cholecystectomy: [...] brown-green hard cholelith. ??The gallbladder mucosa is rjf-ocfwp-qgfbf and velvety. ??Serial sectioning reveals no masses or nodules with a wall thickness of 0.2 cm. ??The cystic duct is identified with a staple clip at one end, with no cystic duct lymph node identified. ??Three appliance service representative sections of gallbladder are submitted in one cassette. ??(Dr. Bassett)/[facility] End of Report NICOL COLLIER 10/16/2003 10/16/2003 15: 01 EDT us William Latif MD PATHOLOGY ORDERABLES Final Result NICOL COLLIER [address] [place] [address] documented in this encounter Visit Diagnoses Not on filedocumented in this encounter
--- OUTSIDE RECORDS SUMMARY | 2024-08-03 00:10 | XMS_ITS | Encounter Summary ---
[place] [address] Care Team Providers Care Base Filler Operator Name Role Phone Lorenzo Bhumi LOPEZ Primary Care Provider +1 [phone] Encounter Details Date Type Department Care Team (Late st Contact Info) Description 02/21/2014 Telephone [place] [phone] Juana Jane RN Social History Tobacco Use [...] procedure start time) on 02/26/2014 with their electric lift truck driver. 2. Following instructions left in [...] on filedocumented in this encounter Care Teams Base Filler Operator Relationship Specialty Start Date End Date Bhumi Ventura APRN [address] [place] [place] [address] PCP - General 08/23/13 11/13/14 documented as of this encounter
--- OUTSIDE RECORDS SUMMARY | 2024-08-03 00:10 | XMS_ITS | Encounter Summary ---
[place] [address] Care Team Providers Care Access Control Specialist Name Role Phone Bhumi Ventura APRN Primary Care Provider +1 [phone] Encounter Details Date Type Department Care Team (Late st Contact Info) Description 09/13/2013 External Results [place] [phone] Provider, Scanning Social History Tobacco Use Types [...] on filedocumented in this encounter Care Teams Access Control Specialist Relationship Specialty Start Date End Date Bhumi Ventura APRN [address] [place] [address] PCP - General 08/23/13 11/13/14 documented as of this encounter
--- OUTSIDE RECORDS SUMMARY | 2024-08-03 00:10 | XMS_ITS | Encounter Summary ---
[place] [address] Care Team Providers Care Casino Runner Name Role Phone LorenzoBhumi JOHN Primary Care Provider [phone] [phone] Encounter Details Date Type Department Care Team (Late st Contact Info) Description 12/07/2013 Telephone [place] [phone] Sena Narayan, RN Social History Tobacco Use [...] time) on 6-16-14 (dateof procedure) with their package delivery driver. 2. Following instructions left in [...] on filedocumented in this encounter Care Teams Casino Runner Relationship Specialty Start Date End Date Bhumi Ventura APRN [address] [place] [address] PCP - General 08/23/13 11/13/14 documented as of this encounter
--- OUTSIDE RECORDS SUMMARY | 2024-08-03 00:10 | XMS_ITS | Clinical Summary ---
Author Organization [facility] Address [address] [facility] [place] [address] Care Team Providers Care Filemaker Developer Name Role Phone Inactive, Pcp External Primary Care Provider Eleanor vailable Allergies No known active allergies Medications Medication [...] Care Team Description 05/22/2024 Telephone [place] [phone] Brit Mayo from Last 3 Months Family [...] Advance Directive 2018 Covid-19 Vaccine (5 - 2023-2 5 season) 2024 07/01/2023, 05/04/2022, 10/19/2021, Additional history exists Influenza (Flu) vaccine (1 o f 1 - Influenza standard series) 02/26/2024 Care Teams Filemaker Developer Relationship Specialty Start Date End Date Inactive, Pcp External PCP - General 07/13/24
--- OUTSIDE RECORDS SUMMARY | 2024-08-03 00:10 | XMS_ITS | Encounter Summary ---
[place] [address] Care Team Providers Care Door Hanger Name Role Phone Bhumi Ventura APRN Primary Care Provider +1 [phone] Encounter Details Date Type Department Care Team (Late st Contact Info) Description 05/02/2013 Orders [place] [address] Jose C Marroquin, PA Social History Tobacco [...] on filedocumented in this encounter Care Teams Door Hanger Relationship Specialty Start Date End Date Bhumi Ventura APRN [address] [place], [place] [id number] PCP - General 08/23/13 11/13/14 documented as of this encounter
--- OUTSIDE RECORDS SUMMARY | 2024-08-03 00:10 | XMS_ITS | Encounter Summary ---
Author Organization [facility] Address One [facility] [place] [address] Care Team Providers Care Sheep Clipper Name Role Phone Bhumi Ventura APRN Primary Care Provider [phone] Encounter Details Date Type Department Care Team (Latest Contact Info) Description 08/23/2013 12:38 PM EST - 08/23/2013 11:59 PM EST Hospital Encounter XRay at [facility] [address] [place] [address] Bilateral knee pain Social History Tobacco Use [...] 2:43 PM ESTProcedure(s): ARTHROCENTESIS,DRAIN/INJECT JOINT/BURSA Vanesa Marrero [id number] HISTORY: bilateral knee Pain Bilateral Knee INJECTION [...] EST documented in this encounter Care Teams Sheep Clipper Relationship Specialty Start Date End Date Bhumi Ventura APRN [address] [place] [address] PCP - General 08/23/13 11/13/14 documented as of this encounter
--- OUTSIDE RECORDS SUMMARY | 2024-08-03 00:10 | XMS_ITS | Encounter Summary ---
[place] [address] Care Team Providers Care Information Technology Security Manager Name Role Phone Bhumi Ventura APRN Primary Care Provider Reason for Visit * Reason Comments Low Back Pain Encounter Details Date Type Department Care Team (Late st Contact Info) Description 10/26/2013 11:00 AM EDT Office [place] [phone] Jahaira Hernandez, PT Bhumi Ventura APRN [address] [place], [place] [phone] Sebastien Kathleen MD [facility] [place] [address] Mechanical low back pain Discharge Disposition: Home [...] Lumbago documented in this encounter Care Teams Information Technology Security Manager Relationship Specialty Start Date End Date Bhumi Ventura APRN [address] [place] [address] PCP - General 08/23/13 11/13/14 documented as of this encounter
--- OUTSIDE RECORDS SUMMARY | 2024-08-03 00:10 | XMS_ITS | Encounter Summary ---
Author Organization [facility] [place] [address] Care Team Providers Care General Dentist Name Role Phone Jose Akhtar MD Primary Care Provider U ken Encounter Details Date Type Department Care Team (Late st Contact Info) Description 07/12/2013 Orders Only [place] [address] Sebastien Kathleen MD [facility] [place] [address] Social History Tobacco Use Types Packs/Day Years [...] on filedocumented in this encounter Care Teams General Dentist Relationship Specialty Start Date End Date Jose Akhtar MD PCP - General 05/19/10 08/22/13 documented as of this encounter
--- OUTSIDE RECORDS SUMMARY | 2024-08-03 00:10 | XMS_ITS | Encounter Summary ---
[place] [address] Care Team Providers Care Yard Pipe Grader Name Role Phone Roula Bauman APRN Primary Care Provider Un available Encounter Details Date Type Department Care Team (Late st Contact Info) Description 01/24/2024 Telephone [place] [address] Pancho Hart Social History Tobacco Use Types [...] Miscellaneous Notes * Telephone Encounter - Pancho aHrt - 01/24/2024 8:10 AM EDT called to [...] on filedocumented in this encounter Care Teams Yard Pipe Grader Relationship Specialty Start Date End Date Roula Bauman APRN PCP - General 11/14/14 07/05/24 documented as of this encounter
--- OUTSIDE RECORDS SUMMARY | 2024-08-03 00:10 | XMS_ITS | Encounter Summary ---
[place] [address] Care Team Providers Care Telegraphic Service Dispatcher Name Role Phone LorenzoBhumi JOHN Primary Care Provider +1 [phone] Encounter Details Date Type Department Care Team (Late st Contact Info) Description 11/20/2013 [place] [phone] Laura Fishman LPN Social History Tobacco Use [...] a pacemaker) on 11/21/13 (date of procedure). Cover Seamer: The patient was reminded that they need to have a local [place] truck driver accompany them to her procedure [...] No Prior to checking in at 3D Front Desk Team Member, please be sure to empty your bladder. [...] on filedocumented in this encounter Care Teams Telegraphic Service Dispatcher Relationship Specialty Start Date End Date Bhumi Ventura APRN [address] [place] [address] PCP - General 08/23/13 11/13/14 documented as of this encounter
--- OUTSIDE RECORDS SUMMARY | 2024-08-03 00:10 | XMS_ITS | Encounter Summary ---
Author Organization [facility] [place] [address] Care Team Providers Care Fusion Analyst Name Role Phone Lorenzo Bhumi LPOEZ Primary Care Provider +1 [phone] Reason for Visit * Reason Comments Back Pain Encounter Details Date Type Department Care Team (Latest Contact Info) Description 02/26/2014 10:30 AM EDT Procedure [place] [address] [address] [facility] [place] [address] Lumbosacral spondylosis without myelopathy Discharge Disposition: Home [...] No 2. Patient states they have a charter coach driver to transport after procedure? Yes 3. [...] the entire procedure. Arsen Paul DO, MPH [employer] [facility]-subspecialty board certification in Pain Medicine Attending Physician-Pain Management CC: Bhumi Lorenzo, HEALTH AND WELLNESS ADVISOR [address] [place] [address] documented in this encounter Plan of Treatment [...] the entire procedure. Arsen Paul DO, MPH [employer] [facility] [employer] [facility]-subspecialty board certification in Pain Medicine Attending Physician-Pain Management CC: Bhumi Ventura, HEALTH AND WELLNESS ADVISOR [address] [place] [address] Procedure Note Arsen Paul DO - 03/01/2014 [...] CC: Bhumi Ventura APRN [address] [place] [address] Arsen Allen DO PROCEDURE/MINOR SURG ICAL ORDERABLES [...] mg documented in this encounter Care Teams Fusion Analyst Relationship Specialty Start Date End Date Bhumi Ventura APRN [address] [place] [address] PCP - General 08/23/13 11/13/14 documented as of this encounter
--- OUTSIDE RECORDS SUMMARY | 2024-08-03 00:10 | XMS_ITS | Encounter Summary ---
Author Organization [facility] [place] [address] Care Team Providers Care Child Care Center Assistant Director Name Role Phone Lorenzo Bhumi LOPEZ Primary Care Provider [phone] Reason for Visit * Reason Comments Back Pain Encounter Details Date Type Department Care Team (Latest Contact Info) Description 11/21/2013 1:30 PM EDT Procedure visit [place] [address] Ar[address] Paul [facility] [place] [address] Lumbosacral spondylosis without myelopathy Discharge Disposition: Home [...] Patient Instructions * Patient Instructions* America Singer, REGIONAL MERCHANDISING MANAGER - 11/21/2013 1:45 PM EDT Pain Management [...] Post -Procedure Pain Log Patient: Vanesa Marrero [id number] It is important for you to keep [...] No 2. Patient states they have a local [place] truck driver to transport after procedure? Yes [...] CC: MAKENNA Patel [facility] [place] [address] documented in this encounter Plan of Treatment [...] Medicine Attending Physician-Pain Management CC: MAKENNA Patel [facility] [place] [address] Procedure Note Linda May - 11/21/2013 2:05 [...] criteria, she was discharged from [facility]. COMMENTS: Pt tolerated the procedure well. [...] CC: MAKENNA Patel [facility] [place] [address] Arsen Allen DO NEUROLOGY ORDERABLES documented in [...] mg documented in this encounter Care Teams Child Care Center Assistant Director Relationship Specialty Start Date End Date Bhumi Ventura APRN [address] [place] [address] PCP - General 08/23/13 11/13/14 documented as of this encounter
--- OUTSIDE RECORDS SUMMARY | 2024-08-03 00:10 | XMS_ITS | Encounter Summary ---
Author Organization [facility] Address One [facility] [place] [address] Care Team Providers Care Aoc Director Intelligence Officer Name Role Phone Bhumi Ventura APRN Primary Care Provider Encounter Details Date Type Department Care Team (Latest Contact Info) Description 08/23/2013 8:32 AM EST - 08/23/2013 12:37 PM [facility] Hospital Encounter XRay at [facility] [address] [place] [address] Bilateral knee pain Social History Tobacco Use [...] leg documented in this encounter Care Teams Aoc Director Intelligence Officer Relationship Specialty Start Date End Date Bhumi Ventura APRN [address] [place] [address] PCP - General 08/23/13 11/13/14 documented as of this encounter
--- OUTSIDE RECORDS SUMMARY | 2024-08-03 00:10 | XMS_ITS | Encounter Summary ---
Author Organization [facility] [place] [address] Care Team Providers Care Technology Support Analyst Name Role Phone Roula Bauman APRN Primary Care Provider Un available Reason for Visit * Reason Comments Skin Lesion Encounter Details Date Type Department Care Team (Late st Contact Info) Description 09/29/2015 10:15 AM EDT Office Visit Dermatology at [facility] [address] [place] [address] [facility] [address] [place] [address] Dermatofibroma; Prurigo nodularis Social History Tobacco Use [...] and signed by: Constance Hanley MD Dermatology [facility] documented in this encounter Plan of [...] chronicus documented in this encounter Care Teams Technology Support Analyst Relationship Specialty Start Date End Date Roula Bauman APRN PCP - General 11/14/14 07/05/24 documented as of this encounter
--- OUTSIDE RECORDS SUMMARY | 2024-08-03 00:10 | XMS_ITS | Encounter Summary ---
[place] [address] Care Team Providers Care Bedspread Folder Name Role Phone Roula Bauman APRN Primary Care Provider Un available Encounter Details Date Type Department Care Team (Late st Contact Info) Description 05/22/2024 Telephone [place] [address] Brit Mayo Social History Tobacco Use Types [...] on filedocumented in this encounter Care Teams Bedspread Folder Relationship Specialty Start Date End Date Roula Bauman APRN PCP - General 11/14/14 07/05/24 documented as of this encounter
--- OUTSIDE RECORDS SUMMARY | 2024-08-03 00:10 | XMS_ITS | Encounter Summary ---
[place] [address] Care Team Providers Care Pasta Press Operator Name Role Phone Bhumi Ventura APRN Primary Care Provider [phone] Reason for Referral * Physical Therapy (Routine) - Closed Specialty Diagnoses / Procedures Referred By Contac t Referred To Contact Physical Therapy Diagnoses Mechanical low back pain Jose C Marroquin PA [facility] [place] [address] [facility] [place] [address] Referral ID Status Reason Start Date Expiration Date V isits Requested Visits Authorized [id number] Closed Evaluate and Treat 09/12/2013 03/11/2014 12 12 Reason for Visit * Reason Comments Referral back pain,lower Encounter Details Date Type Department Care Team (Late st Contact Info) Description 09/12/2013 10:00 AM EDT Office [place] [address] Jose C Marroquin PA Mechanical [...] Scheduled Procedures Name Priority Associated Diagnoses Date/Ti vt COLONOSCOPY, DIAGNOSTIC (WRV U 3.26) + cologuard [...] Lumbago documented in this encounter Care Teams Pasta Press Operator Relationship Specialty Start Date End Date Bhumi Ventura APRN [address] [facility] [place] [address] PCP - General 08/23/13 11/13/14 documented as of this encounter
--- OUTSIDE RECORDS SUMMARY | 2024-08-03 00:10 | XMS_ITS | Encounter Summary ---
Author Organization [facility] [place] [address] Care Team Providers Care Chief Psychologist Name Role Phone Roula Bauman APRN Primary Care Provider Un available Encounter Details Date Type Department Care Team (Late st Contact Info) Description 05/13/2019 Ancillary Procedure Radiology [facility] at [facility] [place] [address] Juan Manuel Eldridge MD [facility] [place] [address] Social History Tobacco Use Types Packs/Day Years [...] FILM LIBRARY ORD ERABLES Performing Organization Address City/State/[facility] Co de Phone Number [place], [place] documented in this encounter Visit Diagnoses Not on filedocumented in this encounter Care Teams Chief Psychologist Relationship Specialty Start Date End Date Roula Bauman APRN PCP - General 11/14/14 07/05/24 documented as of this encounter
--- OUTSIDE RECORDS SUMMARY | 2024-08-03 00:10 | XMS_ITS | Encounter Summary ---
Author Organization [facility] [place] [address] Care Team Providers Care Diesel Fleet Mechanic Name Role Phone Roula Bauman APRN Primary Care Provider Un available Encounter Details Date Type Department Care Team (Late st Contact Info) Description 10/14/2005 Orders [place] [address] Ty Graham MD [facility] [address] Social History Tobacco Use Types Packs/Day Years [...] 2:21 PM EDT) Surgical Pathology Report [id number] ? Location: The signing pathologist has (i) examined the relevant preparation(s) for the specimen(s) and (ii) rendered or confirmed the diagnosis(es). . ?Pathology Addendum Report Addendum Discussion Molecular testing for mitochondrial disease has been performed by Latrice Leal of [facility]. For the full text of the [facility] [...] the muscle and including adjacent adipose tissue. [facility] 10/14/2005 2:21 PM EDT Ty Graham MD PATHOLOGY/CYTOLOGY O RDERABLES [facility] documented in this encounter Visit Diagnoses Not on filedocumented in this encounter Care Teams Diesel Fleet Mechanic Relationship Specialty Start Date End Date Roula Bauman APRN PCP - General 11/14/14 07/05/24 documented as of this encounter
== END 2024-08-03 00:27 ==
LOC: DI 00:07
PROVIDERS: PCP Physician Assistant; Visit Provider Physician Assistant
DX: Z12.31 Encounter for screening mammogram for malignant neoplasm of breast (principal); R92.323 Mammographic fibroglandular density, bilateral breasts; D24.1 Benign neoplasm of right breast; D24.2 Benign neoplasm of left breast
CPT/HCPCS: 77063; 77067

== ENCOUNTER 2025-03-19 09:12 | Outpatient (CLI) | payer MEDICARE, MEDICAID, SELFPAY ==
--- NOTE | 2025-03-19 06:00 | DI.RAD_ITS ---
Exam(s) XR PAIN CLINIC LUMBAR SP 2V EXAM: XR PAIN CLINIC LUMBAR SP 2V CLINICAL HISTORY: DX: Lumbar Spondylosis. TECHNIQUE: Fluoroscopy was provided for the referring physician for guidance with performing pain clinic injection procedure. COMPARISON: No exams were available for comparison FINDINGS: Please see procedure note for details. Fluoro time: 44.7 seconds RADIATION DOSE DELIVERED: yani Ware=42.6 mGy
[2025-03-19 09:29] VITALS: BP 123/71; PULSE 74; RESP 19; TEMP 36.1; O2SAT 95
--- NOTE | 2025-03-19 09:48 | PDOC.PAIN_ITS ---
Date of service: 03/19/25 Time of Service: 10:14 Pain Managment Procedure Note Procedure Note Procedure Note: Lumbar Medial Branch Block ? Location: Bilateral Medial Branches ? Levels: L3,4,5? (L4-5, L5-S1 FACET) ? Pre-procedure Diagnosis: M47.817 Spondylosis without myelopathy or radiculopathy, lumbosacral region M47.816 Spondylosis without myelopathy or radiculopathy, lumbar region ? Post-procedure Diagnosis:? The same as above ? Sedation: NONE? Estimated blood loss:? less than 2 cc ? Surgeon:? Jorgito Gregory MD COMMENT: PRE PROCEDURE PAIN SCORE: 7/10 Patient has had multiple RFA's in the past. Last one was in 2018 so she will need an updated medial branch block ? Procedure Detail:? The procedure and potential risks were explained to the patient and informed written consent was obtained. The patient was escorted to the procedure room and placed in the prone position. Pillows were utilized for proper positioning and comfort.? Time out was performed in procedure room with nursing staff confirming the patient's identity, procedure to be performed, allergies, and any blood thinning or anti-platelet medications. The patient's lower back was prepped with chlorhexidine and draped in a sterile fashion. Sterile technique was maintained throughout the procedure.? Sterile gloves were used, a face mask was worn, and new single dose vials of all medications were used with the top being swabbed with alcohol and given time to dry prior to withdrawal of medication.? A left AND right-sided oblique fluoroscopic view was obtained, with visualization of the: ?RIGHT and LEFT L3,4 and DORSAL RAMUS L5 AT SACRAL ALA ? junction of the transverse process and superior articular process. Lidocaine 1% was used to anesthetize the skin. A 7 22-gauge Quincke needle was advanced along the superior margin of the transverse process and lateral to the articular process.? It was directed inferiorly and medially so that the tip struck the junction of the base of the transverse process and the superior articular process. The needle was then walked over the superior aspect of the transverse process and advanced slightly along the course of the L3,4,5 medial branch nerv es. Proper placement was verified in A/P, oblique and lateral views under fluoroscopy. At this location, following negative aspiration, 0.5cc 0.5% bupivacaine was injected.? The patient tolerated the procedure well and was transported to the recovery area for observation and discharge instructions. Permanent images saved and recorded. Follow-up:? ? Will plan to proceed with lumbar medial branch RFA if the patient gets good relief from today's procedure lasting for at least 2 hours. WILL NEED 20CM RF NEEDLES COMMENT:Pain went from 01/03 to . Before the patient left patient had greater than 80% pain relief. Coding Conscious Sedation used for procedure: No CPT Codes: LMBB (includes Fluoro) Lumbar/Sacral, single lvl *BILATERAL* - [id number] ([id number]~G5) LMBB (includes Fluoro) Lumbar/Sacral, 2nd lvl - 16678 (0664849 ~G) LT - LEFT SIDE, RT - RIGHT SIDE Additional Codes: Date of Service (19138) Date of service: 03/19/25 Diagnoses: M47.817 Spondylosis without myelopathy or radiculopathy, lumbosacral region M47.816 Spondylosis without myelopathy or radiculopathy, lumbar region
[2025-03-19 09:52] VITALS: PULSE 82; O2SAT 89
[2025-03-19 10:00] VITALS: PULSE 74; O2SAT 91
[2025-03-19 10:10] VITALS: PULSE 75; O2SAT 94
[2025-03-19] MEDS: Nerve Block Tray 1 EACH MC (10:20)
[2025-03-19] MEDS: Bupivacaine 0.5% Pres-Free 10 ML VIAL IJ (10:20)
== END 2025-03-19 09:13 | disposition home or self-care (01) ==
LOC: PC 09:13
PROVIDERS: PCP Physician Assistant; Visit Provider Anesthesiology Pain Medicine
DX: M54.50 Low back pain, unspecified (principal); M47.816 Spondylosis without myelopathy or radiculopathy, lumbar region; M47.817 Spondylosis without myelopathy or radiculopathy, lumbosacral region
CPT/HCPCS: 64493; 64494; 72100; J0665

== ENCOUNTER 2025-04-11 15:26 | Outpatient (REF) | payer MEDICARE, MEDICAID, SELFPAY ==
[2025-04-11 19:24] LABS: ALT 34 U/L (14-59); AST 18 U/L (15-37); Albumin 3.6 g/dL (3.4-5.0); Alkaline Phosphatase 105 U/L (46-116); Anion Gap 9.4 mmol/L (3-11); BUN 17 mg/dL (7-18); Bilirubin, Total 0.2 mg/dL (0.2-1.0); CO2 28.6 mmol/L (21.0-32.0); Calcium 9.4 mg/dL (8.5-10.1); Chloride 99 mmol/L (98-107); Cholesterol 169 mg/dL (<200); Estimated GFR 72.28 (mL/min/1.73m2); Glucose 95 mg/dL (74-106); HDL Cholesterol 42 mg/dL (>or=50); Potassium 4.3 mmol/L (3.5-5.1); Sodium 137 mmol/L (136-145); TSH 2.85 uIU/mL (0.36-3.74); Total Protein 6.8 g/dL (6.4-8.2); Triglyceride 432 mg/dL (<150)
[2025-04-11 19:39] LABS: LDL CHOLESTEROL 65 mg/dL (<100)
== END 2025-04-11 15:27 | disposition home or self-care (01) ==
LOC: NCHCN 15:26
PROVIDERS: PCP Physician Assistant; Visit Provider Physician Assistant
DX: E78.2 Mixed hyperlipidemia (principal); E03.9 Hypothyroidism, unspecified
CPT/HCPCS: 80053; 80061; 83721; 84443

== ENCOUNTER 2025-04-15 13:57 | Outpatient (CLI) | payer MEDICARE, MEDICAID, SELFPAY ==
[2025-04-15 14:08] VITALS: BP 146/86; PULSE 70; RESP 20; TEMP 37; O2SAT 97
--- NOTE | 2025-04-15 14:33 | PDOC.PAIN_ITS ---
Date of service: 04/15/25 Time of Service: 15:01 Pain Managment Procedure Note Procedure Note Procedure Note: LUMBAR MEDIAL BRANCH BLOCK #2 Location: Bilateral Medial Branches ? Levels: L3,4,5? (L4-5, L5-S1 FACET) ? Pre-procedure Diagnosis: M47.817 Spondylosis without myelopathy or radiculopathy, lumbosacral region M47.816 Spondylosis without myelopathy or radiculopathy, lumbar region ? Post-procedure Diagnosis:? The same as above ? Sedation: NONE? Estimated blood loss:? less than 2 ml ? Surgeon:? Jorgito Gregory MD COMMENT: Patient had? GREATER THAN 80 % relief after the first medial branch block for greater than the duration of the local anesthetic.? Patient has had multiple RFA's in the past. Last one was in 2018 so she will need an updated medial branch block PRE PROCEDURE PAIN SCORE: 8/10 ? Procedure Detail:? The procedure and potential risks were explained to the patient and informed written consent was obtained. The patient was escorted to the procedure room and placed in the prone position. Pillows were utilized for proper positioning and comfort.? Time out was performed in procedure room with nursing staff confirming the patient's identity, procedure to be performed, allergies, and any blood thinning or anti-platelet medications. The patient's lower back was prepped with chlorhexidine and draped in a sterile fashion. Sterile technique was maintained throughout the procedure.? Sterile gloves were used, a face mask was worn, and new single dose vials of all medications were used with the top being swabbed with alcohol and given time to dry prior to wit hdrawal of medication.? A left and right-sided oblique fluoroscopic view was obtained, with visualization of the: ?RIGHT and LEFT L3,4 and DORSAL RAMUS L5 AT SACRAL ALA ? junction of the transverse process and superior articular process. Lidocaine 1% was used to anesthetize the skin. A 7 22-gauge Quincke needle was advanced along the superior margin of the transverse process and lateral to the articular process.? It was directed inferiorly and medially so that the tip struck the junction of the base of the transverse process and the superior articular process. The needle was then walked over the superior aspect of the transverse process and advanced slightly along the course of the L3,4,5 medial branch nerves. Proper placement was verified in A/P, oblique and lateral views under fluoroscopy. At this location, following negative aspiration, 0.5ml 2% lidocaine was injected.? The patient tolerated the procedure well and was discharged home with instructions. Permanent images saved and recorded. Follow-up:?? Will plan to proceed with lumbar medial branch RFA if the patient gets good relief from today's procedure lasting for at least 2 hours. COMMENT:Pain went from 8/10 to 0/10. Before the patient left patient had 100% pain relief. WILL NEED 20CM RF NEEDLES Coding Conscious Sedation used for procedure: No CPT Codes: LMBB (includes Fluoro) Lumbar/Sacral, 2nd lvl - 29726 (8351151 ~G) RT - RIGHT SIDE, LT - LEFT SIDE LMBB (includes Fluoro) Lumbar/Sacral, single lvl *BILATERAL* - 7878584 (3571118~G5) 50 - BILATERAL PROCEDURE Additional Codes: Date of Service () Diagnoses: M47.817 Spondylosis without myelopathy or radiculopathy, lumbosacral region M47.816 Spondylosis without myelopathy or radiculopathy, lumbar region
--- NOTE | 2025-04-15 15:00 | DI.RAD_ITS ---
Exam(s) XR PAIN CLINIC LUMBAR SP 2V EXAM: XR PAIN CLINIC LUMBAR SP 2V CLINICAL HISTORY: DX: Lumbar Spondylosis. TECHNIQUE: Fluoroscopy was provided for the referring physician for guidance with performing pain clinic injection procedure. COMPARISON: No exams were available for comparison FINDINGS: Please see procedure note for details. Fluoro time: 39.1 seconds RADIATION DOSE DELIVERED: yani Ware=34.8 mGy
[2025-04-15 15:10] VITALS: PULSE 70; O2SAT 93
[2025-04-15] MEDS: Lidocaine 2% Pres-Free 5 ML VIAL IJ (15:13)
[2025-04-15] MEDS: Nerve Block Tray 1 EACH MC (15:13)
== END 2025-04-15 13:58 | disposition home or self-care (01) ==
LOC: PC 13:57
PROVIDERS: PCP Physician Assistant; Visit Provider Anesthesiology Pain Medicine
DX: M54.50 Low back pain, unspecified (principal); M47.816 Spondylosis without myelopathy or radiculopathy, lumbar region; M47.817 Spondylosis without myelopathy or radiculopathy, lumbosacral region
CPT/HCPCS: 64493; 64494; 72100

== ENCOUNTER 2025-05-07 13:31 | Outpatient (CLI) | payer MEDICARE, MEDICAID, SELFPAY ==
[2025-05-07] VITALS (16 sets, daily range): BP systolic 123–145; BP diastolic 64–95; PULSE 70–85; RESP 17–31; TEMP 37; O2SAT 94–97
--- NOTE | 2025-05-07 12:35 | PDOC.PAIN ---
Date of service: 05/07/25 Time of Service: 13:54 Pain Managment Procedure Note Procedure Note Procedure Note: Lumbar Medial Branch Radiofrequency Ablation COMMENT: Patient had greater than 80 % relief after 2 medial branch blocks . ? Location: Bilateral L3, and L4 medial Branches and dorsal ramus of L5 (L4-5, and L5-S1 joints) ? Pre-procedure Diagnosis: M47.817 Spondylosis without myelopathy or radiculopathy, lumbosacral region ? Post-procedure Diagnosis:? The same as above ? Sedation:? ? none ? Estimated blood loss:? less than 2 cc ? Surgeon: Jorgito Gregory MD COMMENT: Patient had good relief from MBBs and previous RFA years ago ? Procedure Detail:? The procedure and potential risks were explained to the patient and informed written consent was obtained. The patient was escorted to the procedure room and placed in the prone position. Pillows were utilized for proper positioning and comfort. Time out was performed in the procedure room with nursing staff confirming the patient's identity, procedure to be performed, allergies, and any blood thinning or anti-platelet medications. The patient's lower back was prepped with ChloraPrep and draped in a sterile fashion.? Sterile technique was maintained throughout the procedure.? Sterile gloves were used, a face mask was worn, and new single dose vials of all medications were used with the top being swabbed with alcohol and given time to dry prior to withdrawal of medication. A left AND right-sided oblique fluoroscopic view was obtained, with visualization of the L4 junction of the transverse process and superior articular process. 1% lidocaine was used to anesthetize the skin. With fluoroscopic guidance, an 200mm 18 gauge straight tip 10mm active tip RF cannula was advanced to the superior margin of the transverse process and lateral to the superior articular process.? It was directed inferiorly and medially so that the tip struck the junction of the base of the transverse process and the superior articular process. The needle was then slightly advanced along the course of the L3 medial branch nerve. Proper placement was verified with oblique, AP, and lateral fluoroscopic views. Sensory tested with good response less than 1V. Motor testing was performed and was negative at 2V except for expected multifidus activation. A similar procedure was also performed at the ipsilateral L4 medial branch nerves and the dorsal ramus of L5 with negative motor testing at 2V except for expected multifidus activation. One cc of 2% lidocaine was injected through each needle tip to anesthetize the medial branch nerves.? After waiting for the local anesthetic to take effect, each nerve was then ablated at 90 degrees Celsius [id number] seconds.? The patient was monitored for any severe pain or radicular pain during the ablation and reported none. The patient tolerated the procedure well, and was transported to the recovery area for observation and discharge instructions.? Permanent images were saved and recorded. Plan:f/u prn COMMENT: Repeat prn if 6 months relief of 50% Coding Conscious Sedation used for procedure: No CPT Codes: DESTROY L/S FACET JNT ADDL - 59084 (1432130~G) bliat Single Facet Joint, Lumbar/Sacral * BILATERAL* - [id number] (2535468~G5) Additional Codes: Date of Service () Diagnoses: M47.817 Spondylosis without myelopathy or radiculopathy, lumbosacral region
--- NOTE | 2025-05-07 13:45 | DI.RAD_ITS ---
Exam(s) XR PAIN CLINIC LUMBAR SP 2V EXAM: XR PAIN CLINIC LUMBAR SP 2V CLINICAL HISTORY: Dx: Lumbar Spondylosis. TECHNIQUE: Fluoroscopy was provided for the referring physician for guidance with performing pain clinic injection procedure. COMPARISON: No exams were available for comparison FINDINGS: Please see procedure note for details. Fluoro time: 118.4 seconds RADIATION DOSE DELIVERED: yani Ware=133.6 mGy
[2025-05-07] MEDS: Lidocaine 2% Multi-Dose 20 ML VIAL IJ (13:54)
[2025-05-07] MEDS: Nerve Block Tray 1 EACH MC (13:54)
== END 2025-05-07 13:32 | disposition home or self-care (01) ==
LOC: PC 13:32
PROVIDERS: PCP Physician Assistant; Visit Provider Anesthesiology Pain Medicine
DX: M54.50 Low back pain, unspecified (principal); M47.817 Spondylosis without myelopathy or radiculopathy, lumbosacral region
CPT/HCPCS: 64635; 64636; 72100; J2003